=== PATIENT | male | born 1945 | race Caucasian/White ===

== ENCOUNTER → 2018-11-16 | Outpatient (CLI) | payer MEDICARE ==
[2018-11-16 09:37] LABS: Basophils # (A) 0.1 k/uL (0-0.2); Basophils % (A) 1 %; Eosinophils # (A) 0.1 k/uL (0-0.7); Eosinophils % (A) 1 %; HCT 42.6 % (39.0-53.0); HGB 13.8 gm/dL (13.0-17.5); Lymphocytes % (A) 13 %; MCHC 32.4 g/dL (31.0-37.0); MCV 95.6 fL (80.0-100.0); Monocytes # (A) 0.5 k/uL (0-1.0); Monocytes % (A) 7 %; Neutrophils # (A) 5.9 k/uL (1.3-7.7); Neutrophils % (A) 77 %; Platelet Count 167 k/uL (150-450); RBC 4.46 m/uL (4.30-5.90); RDW 14.7 % (11.5-15.5); WBC 7.7 k/uL (3.8-10.6)
[2018-11-16 09:53] LABS: Calcium 8.7 mg/dL (8.4-10.2)
== END | disposition home or self-care (01) ==
LOC: LABPAT 08:25
PROVIDERS: ATTEND Urology
DX: Z01.810 Encounter for preprocedural cardiovascular examination (principal); Z01.812 Encounter for preprocedural laboratory examination; D49.4 Neoplasm of unspecified behavior of bladder; I10 Essential (primary) hypertension; R53.83 Other fatigue
CPT/HCPCS: 36415; 80048; 85025; 93005

== ENCOUNTER 2018-11-22 11:29 | Day surgery (SDC) | payer MEDICARE ==
[2018-11-10 12:04] VITALS: BMI 47.7
--- NOTE | 2018-11-22 07:20 | P.GSHP ---
History of Present Illness H&P Date: 11/09/18 Chief Complaint: Gross hematuria The patient is a 72-year-old male who recently presented with gross hematuria. A computed tomography scan showed a 1 cm left renal lesion, as well as perivesical fat stranding. Urine cytology was positive. Cystoscopy showed several anterior bladder wall tumors. He now comes for resection. Past Medical History Past Medical History: Atrial Fibrillation, Heart Failure, Dementia, Hypertension, Myocardial Infarction (MD), Osteoarthritis (OA), Sleep Apnea/CPAP/BIPAP Last Myocardial Infarction Date:: unsure History of Any Multi-Drug Resistant Organisms: MRSA Date of last positivie culture/infection: 2009 MDRO Source:: left knee Past Surgical History: Cholecystectomy, Hernia Repair Additional Past Surgical History / Comment(s): valve replacement, Bilat cataract surgery, left knee replacement. Past Anesthesia/Blood Transfusion Reactions: No Reported Reaction Past Psychological History: No Psychological Hx Reported Smoking Status: Former smoker Past Alcohol Use History: None Reported Past Drug Use History: None Reported - Past Family History Mother Family Medical History: Cancer Additional Family Medical History / Comment(s): breast cancer Sister(s) Family Medical History: Cancer, Myocardial Infarction (MD) Father Family Medical History: Myocardial Infarction (MD) Medications and Allergies Home Medications Medication Instructions Recorded Confirmed Type Cholecalciferol [Vitamin D3 (25 4,000 unit PO DAILY 04/19/17 11/10/18 History Mcg = 1000 Iu)] Clotrimazole/Betamethasone Dip 1 applic TOPICAL Q48H 04/19/17 11/10/18 History [Lotrisone Cream] Donepezil [Aricept] 10 mg PO DAILY 04/19/17 11/10/18 History Ferrous Sulfate [Iron (65 MG 325 mg PO DAILY 04/19/17 11/10/18 History Elemental)] Magnesium Oxide [Mag-Ox] 500 mg PO DAILY 04/19/17 11/10/18 History Memantine HCl [Namenda Xr] 28 mg PO DAILY 04/19/17 11/10/18 History Spironolactone [Aldactone] 25 mg PO BID 04/19/17 11/10/18 History Warfarin [Coumadin] 5 mg PO LACY 04/19/17 11/10/18 History Warfarin [Coumadin] 10 mg PO MOTUWETHFRSA 04/19/17 11/10/18 History Enalapril [Vasotec] 2.5 mg PO BID #60 tablet 04/20/17 11/10/18 Rx Metoprolol Succinate (ER) [Toprol 50 mg PO DAILY #30 tab.er.24h 04/20/17 11/10/18 Rx XL] Albuterol Sulfate [Proventil Hfa] 1 - 2 puff INHALATION Q6HR PRN 11/10/18 11/10/18 History Atorvastatin Calcium [Lipitor] 10 mg PO DAILY 11/10/18 11/10/18 History Budesonide/Formoterol Fumarate 2 puff INHALATION BID 11/10/18 11/10/18 History [Symbicort 160-4.5 Mcg Inhaler] Furosemide [Lasix] 40 mg PO BID 11/10/18 11/10/18 History Allergies Allergy/AdvReac Type Severity Reaction Status Date / Time amoxicillin Allergy Rash/Hives Verified 11/10/18 11:49 Penicillins Allergy Rash/Hives Verified 04/19/17 08:22 Surgical - Exam - General well developed, well nourished, no distress - Neck no masses, trachea midline - Respiratory normal respiratory effort - Abdomen Abdomen: soft, non tender, no guarding, no rigid, no rebound - Genitourinary normal penis with no external lesions, testicles non-tender - Rectum Rectum: normal sphincter tone, no masses, other (prostate mildly enlarged and smooth) Results - Imaging CT scan - abdomen: report reviewed, image reviewed Assessment and Plan (1) Neoplasm of unspecified behavior of bladder Status: Acute Code(s): D49.4 - NEOPLASM OF UNSPECIFIED BEHAVIOR OF BLADDER SNOMED Code(s): 160749836 Plan: Cystoscopy, transurethral resection of bladder tumors. The procedure has been reviewed in detail with the patient and his . The rationale for the procedure was discussed, as were the potential risks. These include anesthesia, bleeding, infection, bladder perforation, and incomplete resection.
[~2018-11-22 11:29] MED LIST: DEXAMETHASONE SOD PHOSPHATE 10 MG/ML 1 ML VIAL IV ONE; LACTATED RINGERS 1,000 ML IV SCH; LEVOFLOXACIN 500MG-D5W PMX 500 MG in DEXTROSE/WATER 1 100ML.BAG IVPB ONE; LIDOCAINE 1% 20 ML VIAL (10MG/ML) FOR IV START INTRADERMA PRN; MIDAZOLAM 2 MG/2 ML VIAL IV PRN; ONDANSETRON 4 MG/2 ML VIAL IVP ONE
[2018-11-22] MEDS ORDERED: ONDANSETRON 4 MG/2 ML VIAL IVP ONE (12:27)
[2018-11-22] MEDS ORDERED: DEXAMETHASONE SOD PHOSPHATE 10 MG/ML 1 ML VIAL IV ONE (12:28)
[2018-11-22 12:44] LABS: INR 1.1 (<1.2); Prothrombin Time 11.2 sec (9.0-12.0)
[2018-11-22] MEDS ORDERED: fentaNYL (PF) 50 MCG/ML 2 ML AMP ONE (13:11)
[2018-11-22] MEDS ORDERED: PROPOFOL 10 MG/ML 20 ML VIAL IV ONE ×2 (13:11)
[2018-11-22] MEDS ORDERED: ROCURONIUM BROMIDE 10 MG/ML 10 ML VIAL IV ONE (13:11)
[2018-11-22] MEDS ORDERED: NEOSTIGMINE 1 MG/ML 10 ML VIAL ONE (13:11)
[2018-11-22] MEDS ORDERED: LIDOCAINE 1% INJ 10MG/ML (20 ML MDV) ONE (13:11)
[2018-11-22] MEDS ORDERED: MIDAZOLAM 2 MG/2 ML VIAL ONE (13:11)
[2018-11-22] MEDS ORDERED: SUCCINYLCHOLINE CHLORIDE VIAL 200 MG/10 ML VIAL IV ONE (13:11)
--- NOTE | 2018-11-22 15:19 | P.OP ---
Date of Procedure: 11/22/18 Preoperative Diagnosis: Bladder tumors Postoperative Diagnosis: Same Procedure(s) Performed: Cystoscopy, transurethral resection of bladder tumors (Medium) Anesthesia: SUZANA Surgeon: Mitch Limon Estimated Blood Loss (ml): 20 IV fluids (ml): 800 Pathology: other (Bladder tumor fragments) Condition: stable Disposition: PACU Indications for Procedure: The patient is a 73-year-old male who recently presented with gross hematuria. A computed tomography scan showed a 1 cm left renal lesion, as well as perivesical fat stranding. Urine cytology was positive. Cystoscopy showed several anterior bladder wall tumors. He now comes for resection. Operative Findings: Multiple bladder tumors. The largest arises from the vesical neck and prostatic urethra. Description of Procedure: The patient was taken in the operating room and placed in the dorsal lithotomy position, with his legs supported in Reji stirrups. The external genitalia was prepped and draped sterilely. The 25-[place] ACMI resectoscope sheath was introduced into the bladder. The bladder was inspected. Both ureteral orifices were of normal anatomic location and configuration, and clear urine effluxed from both. The entire bladder was examined, revealing tumors on the right lateral bladder wall and anterior bladder wall, just cephalad to the vesical neck. The largest tumor measured several centimeters in size and arose from the prostatic urethra and vesical neck. The tumors have a papillary appearance. Using the bipolar cutting loop, the largest tumor tumor was resected. The base of this tumor was then resected and sent as a separate specimen. The mucosa appeared irregular between the right hemitrigone and the vesical neck, and this tissue was resected. A small tumor was identified on the right lateral bladder wall, and was resected. Lastly, the anterior bladder wall tumor was resected. This was quite difficult, due to the patient's body habitus, but it appeared that the resection was a complete resection. Excellent hemostasis was attained. There was no evidence of bladder perforation. The resected tissue was saved and sent for pathologic examination. An 18-Occ[place] Clinton catheter was inserted. The return was clear. The patient tolerated the procedure well. He was taken to the recovery room in stable condition.
[2018-11-22 15:24] VITALS: TEMP 96.9
[2018-11-22 16:59] VITALS: BP 115/75; PULSE 64; RESP 20
== END 2018-11-22 17:46 | disposition home or self-care (01) ==
LOC: OR 11:29
PROVIDERS: ATTEND Urology
DX: C67.2 Malignant neoplasm of lateral wall of bladder (principal); C67.3 Malignant neoplasm of anterior wall of bladder; C67.0 Malignant neoplasm of trigone of bladder; C67.5 Malignant neoplasm of bladder neck; I25.10 Atherosclerotic heart disease of native coronary artery without angina pectoris; I11.0 Hypertensive heart disease with heart failure; I50.9 Heart failure, unspecified; I48.91 Unspecified atrial fibrillation; F03.90 Unspecified dementia, unspecified severity, without behavioral disturbance, psychotic disturbance, mood disturbance, and anxiety; I25.2 Old myocardial infarction; M19.90 Unspecified osteoarthritis, unspecified site; G47.33 Obstructive sleep apnea (adult) (pediatric); Z99.89 Dependence on other enabling machines and devices; E66.01 Morbid (severe) obesity due to excess calories; Z68.42 Body mass index [BMI] 45.0-49.9, adult; Z87.891 Personal history of nicotine dependence; Z88.0 Allergy status to penicillin; Z79.01 Long term (current) use of anticoagulants; Z79.51 Long term (current) use of inhaled steroids; Z79.899 Other long term (current) drug therapy; Z77.29 Contact with and (suspected) exposure to other hazardous substances; Z86.14 Personal history of Methicillin resistant Staphylococcus aureus infection; Z90.49 Acquired absence of other specified parts of digestive tract; Z96.652 Presence of left artificial knee joint; Z95.2 Presence of prosthetic heart valve; Z97.2 Presence of dental prosthetic device (complete) (partial); Z80.3 Family history of malignant neoplasm of breast; Z82.49 Family history of ischemic heart disease and other diseases of the circulatory system
CPT/HCPCS: 52235; 85610; 88307; J2250; J0330; J1100; J2710; J2405; J1956; J2001; J3010; J2704

== ENCOUNTER → 2018-12-23 | Outpatient (CLI) | payer MEDICARE ==
[2018-12-23 10:19] LABS: Basophils % (A) 1 %; Eosinophils # (A) 0.1 k/uL (0-0.7); Eosinophils % (A) 1 %; HCT 44.2 % (39.0-53.0); Lymphocytes # (A) 1.2 k/uL (1.0-4.8); Lymphocytes % (A) 15 %; MCH 31.4 pg (25.0-35.0); MCHC 31.7 g/dL (31.0-37.0); Macrocytosis Slight; Mean Platelet Volume 7.3; Monocytes # (A) 0.6 k/uL (0-1.0); Monocytes % (A) 7 %; Neutrophils # (A) 6.1 k/uL (1.3-7.7); Neutrophils % (A) 75 %; Platelet Count 190 k/uL (150-450); RBC 4.46 m/uL (4.30-5.90); WBC 8.1 k/uL (3.8-10.6)
[2018-12-23 10:27] LABS: Calcium 8.9 mg/dL (8.4-10.2); Potassium 4.7 mmol/L (3.5-5.1)
== END ==
LOC: LABPAT 09:10
PROVIDERS: ATTEND Urology
DX: Z01.812 Encounter for preprocedural laboratory examination (principal); C67.9 Malignant neoplasm of bladder, unspecified; R31.21 Asymptomatic microscopic hematuria; Z79.01 Long term (current) use of anticoagulants
CPT/HCPCS: 36415; 80048; 85025; 87086

== ENCOUNTER 2018-12-30 08:51 | Day surgery (SDC) | payer MEDICARE ==
--- NOTE | 2018-12-15 09:50 | P.GSHP ---
History of Present Illness H&P Date: 12/15/18 Chief Complaint: Bladder cancer The patient is a 73-year-old male who recently presented with gross hematuria. A computed tomography scan showed a 1 cm left renal lesion, as well as perivesical fat stranding. Urine cytology was positive. Cystoscopy showed several anterior bladder wall tumors, and the largest tumor arose from the vesical neck and prostatic urethra. 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 He now comes for repeat resection. He was recently treated for a MRSA UTI. - Constitutional Constitutional: Denies fever - Genitourinary (Male) Genitourinary: Reports hematuria, Reports urinary frequency, Denies dysuria Past Medical History Past Medical History: Atrial Fibrillation, Heart Failure, COPD, Dementia, Hypertension, Myocardial Infarction ([place]), Osteoarthritis (OA), Sleep Apnea/CPAP/BIPAP Additional Past Medical History / Comment(s): uses cpap, abdominal hernia, lupe leg venous stasis. exposure agent orange Last Myocardial Infarction Date:: unsure History of Any Multi-Drug Resistant Organisms: MRSA Date of last positivie culture/infection: 12/10/18 MDRO Source:: Urine Past Surgical History: Cholecystectomy, Hernia Repair, Joint Replacement, Pacemaker Additional Past Surgical History / Comment(s): heart valve replacement, Bilat cataract surgery, left knee replacement. hernia surgery Past Anesthesia/Blood Transfusion Reactions: No Reported Reaction Type of Cardiac Device: Permanent Pacemaker Device Placement Date:: 2016 Past Psychological History: Anxiety - Past Family History Mother Family Medical History: Cancer Additional Family Medical History / Comment(s): breast cancer Sister(s) Family Medical History: Cancer, Myocardial Infarction (VT) Father Family Medical History: Myocardial Infarction (VT) Medications and Allergies Home Medications Medication Instructions Recorded Confirmed Type Cholecalciferol [Vitamin D3 (25 4,000 unit PO DAILY 04/19/17 11/22/18 History Mcg = 1000 Iu)] Clotrimazole/Betamethasone Dip 1 applic TOPICAL Q48H 04/19/17 11/22/18 History [Lotrisone Cream] Donepezil [Aricept] 10 mg PO DAILY 04/19/17 11/22/18 History Ferrous Sulfate [Iron (65 MG 325 mg PO DAILY 04/19/17 11/22/18 History Elemental)] Magnesium Oxide [Mag-Ox] 500 mg PO DAILY 04/19/17 11/22/18 History Memantine HCl [Namenda Xr] 28 mg PO DAILY 04/19/17 11/22/18 History Spironolactone [Aldactone] 25 mg PO BID 04/19/17 11/22/18 History Warfarin [Coumadin] 5 mg PO LACY 04/19/17 11/22/18 History Warfarin [Coumadin] 10 mg PO MOTUWETHFRSA 04/19/17 11/22/18 History Enalapril [Vasotec] 2.5 mg PO BID #60 tablet 04/20/17 11/22/18 Rx Metoprolol Succinate (ER) [Toprol 50 mg PO DAILY #30 tab.er.24h 04/20/17 11/22/18 Rx XL] Albuterol Sulfate [Proventil Hfa] 1 - 2 puff INHALATION Q6HR PRN 11/10/18 11/22/18 History Atorvastatin Calcium [Lipitor] 10 mg PO DAILY 11/10/18 11/22/18 History Budesonide/Formoterol Fumarate 2 puff INHALATION BID 11/10/18 11/22/18 History [Symbicort 160-4.5 Mcg Inhaler] Furosemide [Lasix] 40 mg PO BID 11/10/18 11/22/18 History Allergies Allergy/AdvReac Type Severity Reaction Status Date / Time amoxicillin Allergy Rash/Hives Verified 11/22/18 11:48 Penicillins Allergy Rash/Hives Verified 11/22/18 11:48 Surgical - Exam - General well developed, well nourished, no distress - Respiratory normal respiratory effort - Abdomen Abdomen: soft, non tender, no guarding, no rigid, no rebound - Genitourinary normal penis with no external lesions, testicles non-tender - Rectum Rectum: normal sphincter tone, no masses, other (Prostate mildly enlarged and smooth) - Psychiatric oriented to time, oriented to person, oriented to place, speech is normal, memory intact Assessment and Plan (1) Malignant neoplasm of bladder Status: Acute Code(s): C67.9 - MALIGNANT NEOPLASM OF BLADDER, UNSPECIFIED SNOMED Code(s): 538192230 Plan: Cystoscopy, re-resection of bladder tumors. The procedure has been reviewed in detail with the patient and his , including the rationale for the procedure and potential risks. These include anesthesia, bleeding, infection, bladder perforation, and incomplete resection.
[2018-12-17 15:15] VITALS: BMI 47.5
[~2018-12-30 08:51] MED LIST changes: +HYDROmorphone 0.5 MG/0.5 ML SYRINGE IVP PRN; -LEVOFLOXACIN 500MG-D5W PMX 500 MG in DEXTROSE/WATER 1 100ML.BAG IVPB ONE; -LIDOCAINE 1% 20 ML VIAL (10MG/ML) FOR IV START INTRADERMA PRN; -MIDAZOLAM 2 MG/2 ML VIAL IV PRN; +ceFAZolin 3 GM in SODIUM CHLORIDE 0.9% 100 ML IVPB ONE
[2018-12-30] MEDS ORDERED: LIDOCAINE 1% 20 ML VIAL (10MG/ML) FOR IV START INTRADERMA ONE (09:38)
[2018-12-30 09:45] LABS: Glucose,Whole Blood 99 mg/dL (75-99)
[2018-12-30 09:49] LABS: INR 1.2 (<1.2); Prothrombin Time 12.6 sec (9.0-12.0)
[2018-12-30] MEDS ORDERED: ePHEDrine SULFATE/0.9% NACL/PF 50 MG/5 ML SYRINGE IV ONE (10:38)
[2018-12-30] MEDS ORDERED: MIDAZOLAM 2 MG/2 ML VIAL ONE (10:38)
[2018-12-30] MEDS ORDERED: LACTATED RINGERS 1,000 ML IV ONE (11:07)
[2018-12-30 12:07] VITALS: PULSE 60; TEMP 97.4
[2018-12-30 14:19] VITALS: BP 121/65; RESP 18
--- NOTE | 2018-12-30 18:42 | P.OP ---
Date of Procedure: 12/30/18 Preoperative Diagnosis: Urothelial carcinoma of the bladder with CIS Postoperative Diagnosis: Same Procedure(s) Performed: Cystoscopy, TURBT (Medium) Anesthesia: spinal Surgeon: Mitch Limon Estimated Blood Loss (ml): 30 IV fluids (ml): 600 Condition: stable Disposition: PACU Indications for Procedure: The patient is a 73-year-old male who recently presented with gross hematuria. A computed tomography scan showed a 1 cm left renal lesion, as well as perivesical fat stranding. Urine cytology was positive. Cystoscopy showed several anterior bladder wall tumors, and the largest tumor arose from the vesical neck and prostatic urethra. 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 He now comes for repeat resection. He was recently treated for a MRSA UTI. Operative Findings: Inflammation at previous areas of resection. Description of Procedure: The patient was taken in the operating room and placed in the dorsal lithotomy position, with his legs supported in Reji stirrups. The external genitalia was prepped and draped sterilely. The 25-[place] ACMI resectoscope sheath was introduced into the bladder. The bladder was inspected. Inflammation was noted at areas of prior resection. The trigone was edematous, and thus the ureteral orifices could not be identified. No tumors were seen. Using the bipolar cutting loop, the areas of prior resection on the anterior bladder wall, bladder trigone, and prostatic urethra were resected down to the muscle. Adequate hemostasis was attained. There was no evidence of bladder perforation. The resected tissue was saved and sent for pathologic examination. A 20-[place] Clinton catheter was inserted. The return was clear. The patient tolerated the procedure well. He was taken to the recovery room in stable condition.
== END 2018-12-30 15:04 | disposition home or self-care (01) ==
LOC: OR 08:51
PROVIDERS: ATTEND Urology
DX: C67.3 Malignant neoplasm of anterior wall of bladder (principal); D09.0 Carcinoma in situ of bladder; I48.91 Unspecified atrial fibrillation; I11.0 Hypertensive heart disease with heart failure; I50.9 Heart failure, unspecified; J44.9 Chronic obstructive pulmonary disease, unspecified; F03.90 Unspecified dementia, unspecified severity, without behavioral disturbance, psychotic disturbance, mood disturbance, and anxiety; I25.2 Old myocardial infarction; M19.90 Unspecified osteoarthritis, unspecified site; G47.30 Sleep apnea, unspecified; Z99.89 Dependence on other enabling machines and devices; I87.8 Other specified disorders of veins; Z86.14 Personal history of Methicillin resistant Staphylococcus aureus infection; Z77.098 Contact with and (suspected) exposure to other hazardous, chiefly nonmedicinal, chemicals; Z90.49 Acquired absence of other specified parts of digestive tract; Z96.652 Presence of left artificial knee joint; Z98.42 Cataract extraction status, left eye; Z98.41 Cataract extraction status, right eye; Z95.0 Presence of cardiac pacemaker; F41.9 Anxiety disorder, unspecified; Z95.2 Presence of prosthetic heart valve; Z80.3 Family history of malignant neoplasm of breast; Z82.49 Family history of ischemic heart disease and other diseases of the circulatory system; Z79.01 Long term (current) use of anticoagulants; Z79.51 Long term (current) use of inhaled steroids; Z79.899 Other long term (current) drug therapy; Z88.0 Allergy status to penicillin
CPT/HCPCS: 85610; 88342; 88307; 88341; 52235; J2250; J1100; J0690; J2405

== ENCOUNTER 2020-02-29 07:41 | Emergency (ER) | payer MEDICARE ==
[2020-02-29] MEDS ORDERED: HYDROcodone/APAP 7.5-325MG 1 EACH TAB PO ONE (07:49)
[2020-02-29 07:53] VITALS: TEMP 97.9
--- NOTE | 2020-02-29 07:55 | ED ---
Fall HPI - General Stated Complaint: FALL/LEFT HIP PAIN Time Seen by Provider: 02/29/20 07:44 - History of Present Illness Initial Comments: 74yo male with extensive PMH on Coumadin for atrial fibrillation presenting for fall. States he has had chronic hip pain that has been increasing for the past week. Patient states it is worse in the AM and when attempting to go from seated to standing. patient states that he went to get out of bed to go to the res troom, and he fell onto his "bottom" patient states he did not hit his head or jerk it. Patient denies any back pain,neck pain denies leg weakness, sensation deficits. Denies chest pain, SOB or syncope. Ptient states he doesnot have any headaches, visual changes, nausea, vomiting. Patient appears well nontoxic in no acute distress. - Related Data Home Medications Medication Instructions Recorded Confirmed Cholecalciferol [Vitamin D3 (25 2,000 unit PO DAILY 04/19/17 12/30/18 Mcg = 1000 Iu)] Clotrimazole/Betamethasone Dip 1 applic TOPICAL Q48H 04/19/17 12/30/18 [Lotrisone Cream] Donepezil [Aricept] 10 mg PO DAILY 04/19/17 12/30/18 Ferrous Sulfate [Iron (65 MG 325 mg PO DAILY 04/19/17 12/30/18 Elemental)] Magnesium Oxide [Mag-Ox] 500 mg PO DAILY 04/19/17 12/30/18 Memantine HCl [Namenda Xr] 28 mg PO DAILY 04/19/17 12/30/18 Spironolactone [Aldactone] 25 mg PO BID 04/19/17 12/30/18 Warfarin [Coumadin] 5 mg PO LACY 04/19/17 12/30/18 Warfarin [Coumadin] 10 mg PO MOTUWETHFRSA 04/19/17 12/30/18 Albuterol Sulfate [Proventil Hfa] 1 - 2 puff INHALATION Q6HR PRN 11/10/18 12/30/18 Atorvastatin Calcium [Lipitor] 10 mg PO DAILY 11/10/18 12/30/18 Budesonide/Formoterol Fumarate 2 puff INHALATION BID 11/10/18 12/30/18 [Symbicort 160-4.5 Mcg Inhaler] Furosemide [Lasix] 40 mg PO BID 11/10/18 12/30/18 Nitrofurantoin Monohyd/M-Cryst 100 mg PO Q12HR 12/17/18 12/30/18 [Macrobid] Previous Rx's Medication Instructions Recorded Enalapril [Vasotec] 2.5 mg PO BID #60 tablet 04/20/17 Metoprolol Succinate (ER) [Toprol 50 mg PO DAILY #30 tab.er.24h 04/20/17 XL] Allergies Allergy/AdvReac Type Severity Reaction Status Date / Time amoxicillin Allergy Rash/Hives Verified 02/29/20 07:53 Penicillins Allergy Rash/Hives Verified 02/29/20 07:53 Review of Systems ROS Statement: Those systems with pertinent positive or pertinent negative responses have been documented in the HPI. ROS Other: All systems not noted in ROS Statement are negative. Past Medical History Past Medical History: Atrial Fibrillation, Heart Failure, COPD, Dementia, Hypertension, Myocardial Infarction (ND), Osteoarthritis (OA), Sleep Apnea/CPAP/BIPAP Additional Past Medical History / Comment(s): uses cpap, abdominal hernia, lupe leg venous stasis. exposure agent orange Last Myocardial Infarction Date:: unsure History of Any Multi-Drug Resistant Organisms: MRSA Date of last positivie culture/infection: 12/10/18 MDRO Source:: Urine Past Surgical History: Cholecystectomy, Hernia Repair, Joint Replacement, Pacemaker Additional Past Surgical History / Comment(s): heart valve replacement, Bilat cataract surgery, left knee replacement. hernia surgery Past Anesthesia/Blood Transfusion Reactions: No Reported Reaction Type of Cardiac Device: Permanent Pacemaker Device Placement Date:: 2016 Past Psychological History: Anxiety Additional Psychological History / Comment(s): dementia Past Alcohol Use History: None Reported Additional Past Alcohol Use History / Comment(s): starting smoking age 21, 2ppd quit 2009 Past Drug Use History: None Reported - Past Family History Mother Family Medical History: Cancer Additional Family Medical History / Comment(s): breast cancer Sister(s) Family Medical History: Cancer, Myocardial Infarction (ND) Father Family Medical History: Myocardial Infarction (ND) General Exam - General Exam Comments Initial Comments: General: The patient is awake and alert, in no distress. Eye: +3 mm pupils are equal, round and reactive to light, extra-ocular movements are intact. No nystagmus. There is normal conjunctiva bilaterally. No signs of icterus. Ears, nose, mouth and throat: There are moist mucous membranes and no oral lesions. Neck: The neck is supple, there is no tenderness or JVD. Cardiovascular: There is a regular rate and rhythm. No murmur, rub or gallop is appreciated. Respiratory: Lungs are clear to auscultation, respirations are non-labored, breath sounds are equal. No wheezes, stridor, rales, or rhonchi. Gastrointestinal: Soft, non-distended, non-tender abdomen without masses or organomegaly noted. There is no rebound or guarding present. Musculoskeletal: No back pain. Normal ROM, no tenderness. Strength 5/5 of the LE b/l. Sensation intact of the LE b/l. Radial pulses equal bilaterally 2+. Neurological: A&O x 3. CN II-XII intact grossly, There are no obvious motor or sensory deficits. Coordination appears grossly intact. Speech is normal. Skin: Skin is warm and dry and no rashes or lesions are noted. Psychiatric: Cooperative, appropriate mood & affect, normal judgment. Course Vital Signs 02/29/20 02/29/20 07:46 09:16 Temperature 97.9 F Pulse Rate 70 69 Respiratory 16 18 Rate Blood Pressure 129/95 141/81 O2 Sat by Pulse 98 96 Oximetry Medical Decision Making - Medical Decision Making 74yo male presenting for cc of fall. Left hip pain. Not increased since fall. Patient denies back pain. No weakness on exam, sensation intact. No fevers. Patient able to weight bear and ambulate. Patient has extensive degenerative changes on XR cannot r/o osteonecrosis. Patient wanted INR checked, within therapeutic levels. Patient family and patient agreeable to discharge with orthopedic f/u. Dr Braun is agreeable to discharge at this time. - Lab Data Lab Results 02/29/20 Range/Units 08:26 PT 27.5 H (9.0-12.0) sec INR 2.8 H (<1.2) Disposition Clinical Impression: Fall, Left hip pain, Arthritis Disposition: HOME SELF-CARE Condition: Good Instructions (If sedation given, give patient instructions): Hip Pain (ED) Additional Instructions: Please use medication as discussed. Please follow-up with family doctor in the next 2 days. Please return to emergency room if the symptoms increase or worsen or for any other concerns. Is patient prescribed a controlled substance at d/c from ED?: No Referrals: Gina Velasco MD [Primary Care Provider] - 1-2 days Rock Garcia DO [Doctor of Osteopathic Medicine] - 1-2 days Time of Disposition: 08:38
--- NOTE | 2020-02-29 08:43 | XR ---
EXAMINATION TYPE: XR Hip RT and AP Pelvis DATE OF EXAM: 02/29/2020 COMPARISON: NONE HISTORY: Left hip pain. Recent fall. TECHNIQUE: A single AP view of the pelvis is obtained. Two views of the left hip are obtained. FINDINGS: There is no acute displaced fracture/dislocation evident in the pelvis or left hip. The s acroiliac joints appear symmetric and unremarkable. Pubic symphysis unremarkable. Degenerative change s of the lumbosacral spine. Degenerative changes of the bilateral hips, left greater than right. Ther e is cortical irregularity of the medial aspect of the left femoral head. Calcified atherosclerotic v ascular disease. IMPRESSION: 1. Cortical irregularity of the medial left femoral head likely represents overlapping fovea and dege nerative change of the acetabulum, however osteonecrosis/subchondral insufficiency changes not exclud ed. Recommend CT exam of the left hip for further evaluation. 2. No acute fracture or dislocation of the pelvis.
[2020-02-29 08:50] LABS: INR 2.8 (<1.2); Prothrombin Time 27.5 sec (9.0-12.0)
[2020-02-29 09:18] VITALS: BP 141/81; PULSE 69; RESP 18
== END 2020-02-29 09:11 | disposition home or self-care (01) ==
LOC: EC 07:41
DX: M16.12 Unilateral primary osteoarthritis, left hip (principal); I48.91 Unspecified atrial fibrillation; I11.0 Hypertensive heart disease with heart failure; I50.9 Heart failure, unspecified; J44.9 Chronic obstructive pulmonary disease, unspecified; I25.2 Old myocardial infarction; F41.9 Anxiety disorder, unspecified; F03.90 Unspecified dementia, unspecified severity, without behavioral disturbance, psychotic disturbance, mood disturbance, and anxiety; G47.30 Sleep apnea, unspecified; Z79.899 Other long term (current) drug therapy; Z79.01 Long term (current) use of anticoagulants; Z79.51 Long term (current) use of inhaled steroids; Z88.0 Allergy status to penicillin; Z95.0 Presence of cardiac pacemaker; Z95.2 Presence of prosthetic heart valve; Z96.652 Presence of left artificial knee joint; Z87.891 Personal history of nicotine dependence
CPT/HCPCS: 36415; 73502; 85610; 99284

== ENCOUNTER 2020-03-03 12:13 | Inpatient (IN) | payer MEDICARE ==
[2020-03-03] MEDS ORDERED: DIPH,PERTUS(ACELL)TETVAC-LF 0.5 ML VIAL IM ONE (12:35)
--- NOTE | 2020-03-03 12:37 | ED ---
General Adult HPI - General Chief complaint: Fall Stated complaint: Fall Time Seen by Provider: 03/03/20 12:24 Source: EMS Mode of arrival: EMS Limitations: no limitations - History of Present Illness Initial comments: Dictation was produced using [employer] dictation software. please excuse any grammatical, word or spelling errors. This patient was cared for during a federal and state declared state of emergency secondary to Covid 19 Chief Complaint: 74-year-old male presents after fall History of Present Illness: Is 74-year-old male has multiple Covid's including atrial fibrillation, heart rate, COPD, dementia presents after falling. Patient has a history of forgetfulness. He is allegedly fell while in the shower. Today complains of left hip pain. Denies any headache. No neck pain. Patient reports slipping and falling in the bathroom. A loud thud was heard by patient's . She noticed them on the ground. Patient refusing any pain medications. Takes Coumadin for A. fib. The ROS documented in this emergency department record has been reviewed and confirmed by me. Those systems with pertinent positive or negative responses have been documented in the HPI. All other systems are other negative and/or noncontributory. PHYSICAL EXAM: General Impression: Alert and oriented x3, not in acute distress HEENT: Normocephalic atraumatic, extra-ocular movements intact, pupils equal and reactive to light bilaterally, mucous membranes moist. Cardiovascular: Heart regular rate and rhythm Chest: Able to complete full sentences, no retractions, no tachypnea Abdomen: abdomen soft, non-tender, non-distended, no organomegaly Musculoskeletal: Pulses present and equal in all extremities, no peripheral edema, hip pain with ranging of the left hip. No other obvious injuries noted to the extremities. There are skin tears to the bilateral elbows Motor: no focal deficits noted Neurological: CN II-XII grossly intact, no focal motor or sensory deficits noted Skin: Intact with no visualized rashes Psych: Normal affect and mood ED course: 74-year-old male with slip and fall in the bathroom today. Ends upon arrival are within acceptable limits. Laboratory evaluation obtained. Hemoglobin stable. No leukocytosis. Coag panel shows INR 4.0. This is mildly supratherapeutic. Patient showing any signs of bleeding. Metabolic panel shows test 5.2 with slight hemolysis. This likely normal with lab error. BUN 40, creatinine 1.16. Rest of labs are unremarkable. Computed tomography scan the brain is unremarkable. Chest x-ray is nonacute. Hip and pelvis x-ray shows no acute processes. Patient reevaluated at bedside. On his x-ray of the head there does show severe left hip arthropathy. Patient resting comfortably however whenever you manipulate his left hip he starts to experience significant pain. at bedside is the patient's customer operations manager however she is a small frail old lady and unable to care for this male who is BMI of 49. Patient be admitted to Dr. Velasco. We'll put orthopedic surgery consult and physical therapy consult. EKG interpretation: Ventricular rate 74, paced rhythm, QRS 148, QTc 463. No NM prolongation, no QTC prolongation, no ST or T-wave changes noted. EKG compared to 11/16/2018 showing no changes. Overall, this EKG is unremarkable - Related Data Home Medications Medication Instructions Recorded Confirmed Cholecalciferol [Vitamin D3 (25 2,000 unit PO DAILY 04/19/17 12/30/18 Mcg = 1000 Iu)] Clotrimazole/Betamethasone Dip 1 applic TOPICAL Q48H 04/19/17 12/30/18 [Lotrisone Cream] Donepezil [Aricept] 10 mg PO DAILY 04/19/17 12/30/18 Ferrous Sulfate [Iron (65 MG 325 mg PO DAILY 04/19/17 12/30/18 Elemental)] Magnesium Oxide [Mag-Ox] 500 mg PO DAILY 04/19/17 12/30/18 Memantine HCl [Namenda Xr] 28 mg PO DAILY 04/19/17 12/30/18 Spironolactone [Aldactone] 25 mg PO BID 04/19/17 12/30/18 Warfarin [Coumadin] 5 mg PO LACY 04/19/17 12/30/18 Warfarin [Coumadin] 10 mg PO MOTUWETHFRSA 04/19/17 12/30/18 Albuterol Sulfate [Proventil Hfa] 1 - 2 puff INHALATION Q6HR PRN 11/10/18 12/30/18 Atorvastatin Calcium [Lipitor] 10 mg PO DAILY 11/10/18 12/30/18 Budesonide/Formoterol Fumarate 2 puff INHALATION BID 11/10/18 12/30/18 [Symbicort 160-4.5 Mcg Inhaler] Furosemide [Lasix] 40 mg PO BID 11/10/18 12/30/18 Nitrofurantoin Monohyd/M-Cryst 100 mg PO Q12HR 12/17/18 12/30/18 [Macrobid] Previous Rx's Medication Instructions Recorded Enalapril [Vasotec] 2.5 mg PO BID #60 tablet 04/20/17 Metoprolol Succinate (ER) [Toprol 50 mg PO DAILY #30 tab.er.24h 04/20/17 XL] Allergies Allergy/AdvReac Type Severity Reaction Status Date / Time amoxicillin Allergy Rash/Hives Verified 03/03/20 14:08 Penicillins Allergy Rash/Hives Verified 03/03/20 14:08 Review of Systems ROS Statement: Those systems with pertinent positive or pertinent negative responses have been documented in the HPI. ROS Other: All systems not noted in ROS Statement are negative. Past Medical History Past Medical History: Atrial Fibrillation, Heart Failure, COPD, Dementia, Hypertension, Myocardial Infarction ([place]), Osteoarthritis (OA), Sleep Apnea/CPAP/BIPAP Additional Past Medical History / Comment(s): uses cpap, abdominal hernia, lupe leg venous stasis. exposure agent orange Last Myocardial Infarction Date:: unsure History of Any Multi-Drug Resistant Organisms: MRSA Date of last positivie culture/infection: 12/10/18 MDRO Source:: Urine Past Surgical History: Cholecystectomy, Hernia Repair, Joint Replacement, Pacemaker Additional Past Surgical History / Comment(s): heart valve replacement, Bilat cataract surgery, left knee replacement. hernia surgery Past Anesthesia/Blood Transfusion Reactions: No Reported Reaction Type of Cardiac Device: Permanent Pacemaker Device Placement Date:: 2016 Past Psychological History: Anxiety Smoking Status: Never smoker Past Alcohol Use History: None Reported Past Drug Use History: None Reported - Past Family History Mother Family Medical History: Cancer Additional Family Medical History / Comment(s): breast cancer Sister(s) Family Medical History: Cancer, Myocardial Infarction ([place]) Father Family Medical History: Myocardial Infarction ([place]) General Exam Limitations: no limitations Course Vital Signs 03/03/20 03/03/20 12:14 14:04 Temperature 98.2 F Pulse Rate 80 63 Respiratory 18 18 Rate Blood Pressure 127/67 132/77 O2 Sat by Pulse 98 98 Oximetry Medical Decision Making - Lab Data Result diagrams: 03/03/20 12:41 03/03/20 12:41 Lab Results 03/03/20 03/03/20 03/03/20 Range/Units 12:41 12:41 12:41 WBC 9.9 (3.8-10.6) k/uL RBC 3.95 L (4.30-5.90) m/uL Hgb 13.7 (13.0-17.5) gm/dL Hct 40.0 (39.0-53.0) % MCV 101.1 H (80.0-100.0) fL MCH 34.7 (25.0-35.0) pg MCHC 34.3 (31.0-37.0) g/dL RDW 14.1 (11.5-15.5) % Plt Count 169 (150-450) k/uL Neutrophils % 86 % Lymphocytes % 5 % Monocytes % 6 % Eosinophils % 1 % Basophils % 1 % Neutrophils # 8.5 H (1.3-7.7) k/uL Lymphocytes # 0.5 L (1.0-4.8) k/uL Monocytes # 0.6 (0-1.0) k/uL Eosinophils # 0.1 (0-0.7) k/uL Basophils # 0.1 (0-0.2) k/uL Macrocytosis Slight PT 39.8 H (9.0-12.0) sec INR 4.0 H (<1.2) APTT 39.7 H (22.0-30.0) sec Sodium 135 L (137-145) mmol/L Potassium 5.2 H (3.5-5.1) mmol/L Chloride 103 (98-107) mmol/L Carbon Dioxide 26 (22-30) mmol/L Anion Gap 6 mmol/L BUN 40 H (9-20) mg/dL Creatinine 1.16 (0.66-1.25) mg/dL Est GFR (CKD-EPI)AfAm 73 (>60 ml/min/1.73 sqM) Est GFR (CKD-EPI)NonAf 63 (>60 ml/min/1.73 sqM) Glucose 120 H (74-99) mg/dL Calcium 8.9 (8.4-10.2) mg/dL Total Bilirubin 2.2 H (0.2-1.3) mg/dL AST 48 (17-59) U/L ALT 26 (4-49) U/L Alkaline Phosphatase 98 (38-126) U/L Total Protein 6.5 (6.3-8.2) g/dL Albumin 3.7 (3.5-5.0) g/dL Disposition Clinical Impression: Hip pain, Fall Disposition: ADMITTED IP TO THIS [facility] Condition: Fair Referrals: Gina Velasco MD [Primary Care Provider] - 1-2 days Decision Time: 14:10
[2020-03-03 12:59] LABS: Basophils # (A) 0.1 k/uL (0-0.2); Basophils % (A) 1 %; Eosinophils # (A) 0.1 k/uL (0-0.7); Eosinophils % (A) 1 %; HGB 13.7 gm/dL (13.0-17.5); Lymphocytes # (A) 0.5 k/uL (1.0-4.8); Lymphocytes % (A) 5 %; MCH 34.7 pg (25.0-35.0); MCHC 34.3 g/dL (31.0-37.0); MCV 101.1 fL (80.0-100.0); Macrocytosis Slight; Mean Platelet Volume 7.2; Monocytes # (A) 0.6 k/uL (0-1.0); Monocytes % (A) 6 %; Neutrophils # (A) 8.5 k/uL (1.3-7.7); Neutrophils % (A) 86 %; Platelet Count 169 k/uL (150-450); RBC 3.95 m/uL (4.30-5.90); RDW 14.1 % (11.5-15.5); WBC 9.9 k/uL (3.8-10.6)
[2020-03-03 13:18] LABS: Albumin 3.7 g/dL (3.5-5.0); Calcium 8.9 mg/dL (8.4-10.2); Total Bilirubin 2.2 mg/dL (0.2-1.3); Total Protein 6.5 g/dL (6.3-8.2)
[2020-03-03 13:26] LABS: Potassium 5.2 mmol/L (3.5-5.1)
--- NOTE | 2020-03-03 13:34 | CT ---
EXAMINATION TYPE: CT brain jimmy wo con DATE OF EXAM: 03/03/2020 COMPARISON: 04/19/2017 HISTORY: Fall CT DLP: 1540 mGycm Automated exposure control for dose reduction was used. TECHNIQUE: CT scan of the head and cervical spine are performed without contrast. FINDINGS: Intracranial atherosclerotic changes noted. Exam limited by patient motion. Calcification the right basal ganglia. Calcification in the left frontal and parietal lobes. Moderate generalized degenerative change of low attenuation in the white matter nonspecific but most typical of remote whi te matter ischemia. Calvarium intact. Odontoid intact. Assessment spinal canal markedly limited due to artifact and resolution. There is mu ltilevel hypertrophic and degenerative changes. No compression deformities. Multilevel facet arthropa thy. Suspect multilevel foraminal encroachment. Nondiagnostic assessment spinal canal. Artifact from dental work is noted. Oropharynx and nasopharynx symmetric. Parotid glands have a normal appearance. Atherosclerotic change of the carotid arteries noted. IMPRESSION: 1. Degenerative and nonspecific white matter changes with no acute hemorrhage. 2. Multilevel degenerative disc disease and facet arthropathy. No acute fracture..
--- NOTE | 2020-03-03 13:35 | XR ---
EXAMINATION TYPE: XR chest 1V portable DATE OF EXAM: 03/03/2020 COMPARISON: 04/20/2017 HISTORY: Chest pain TECHNIQUE: Single frontal view of the chest is obtained. FINDINGS: The heart is enlarged. There is a cardiac device and atherosclerotic change aorta. Subsegm ental changes at both lung bases. No overt failure or pneumothorax. Arthropathy of the shoulders. IMPRESSION: Cardiomegaly with basilar atelectasis favored over infiltrate. Correlate for underlying COPD.
--- NOTE | 2020-03-03 13:37 | XR ---
EXAMINATION TYPE: XR Hip LT and AP Pelvis DATE OF EXAM: 03/03/2020 COMPARISON: NONE HISTORY: Left hip pain TECHNIQUE: A single AP view of the pelvis is obtained. Two views of the left hip are obtained. FINDINGS: Degenerative change lower lumbar spine. SI joints are symmetric. Technique limits the exam. There severe arthropathy of the bilateral hip. Vascular calcifications noted. Correlate for femoral acetabular impingement. No acute fracture seen. IMPRESSION: 1. Severe hip arthropathy with no definite acute fracture.
[2020-03-03 13:53] LABS: Partial Thromboplastin Time 39.7 sec (22.0-30.0); Prothrombin Time 39.8 sec (9.0-12.0)
[2020-03-03] MEDS ORDERED: NALOXONE 0.4 MG/ML 1 ML VIAL IV PRN (14:10)
[2020-03-03] MEDS ORDERED: oxyCODONE-APAP 5-325MG 1 EACH TAB PO PRN (14:10)
[2020-03-03] MEDS ORDERED: ONDANSETRON 4 MG/2 ML VIAL IVP PRN (14:10)
[2020-03-03] MEDS: ACETAMINOPHEN TAB 325 MG TAB PO PRN (14:17)
[2020-03-03] MEDS: SODIUM CHLORIDE 0.9% 1,000 ML IV SCH (16:27)
[2020-03-03] MEDS ORDERED: WARFARIN 0.5 MG TAB PO ONE (18:00)
--- NOTE | 2020-03-03 18:18 | CT ---
EXAMINATION TYPE: CT hip LT wo con DATE OF EXAM: 03/03/2020 COMPARISON: None HISTORY: LEFT HIP PAIN CT DLP: 1859.6 mGycm Automated exposure control for dose reduction was used. Images were obtained from the mid ileum to the subtrochanteric femur without contrast. The proximal femur is intact. There is no evidence of femoral fracture. There is hypertrophic acetabu lar spurring. Acetabulum is intact. Visualized left hemipelvis is intact. Sacroiliac joint is intact. There is atherosclerotic vascular calcification. IMPRESSION: Osteoarthritis. No fracture seen.
[2020-03-04 07:30] LABS: Prothrombin Time 39.1 sec (9.0-12.0)
[2020-03-04 07:54] LABS: African American GFR (CKD) >90 (>60 ml/min/1.73 sqM); Anion Gap 1 mmol/L; Blood Urea Nitrogen 33 mg/dL (9-20); Calcium 8.3 mg/dL (8.4-10.2); Carbon Dioxide 29 mmol/L (22-30); Chloride 105 mmol/L (98-107); Glucose 96 mg/dL (74-99); Non-African American GFR(CKD) 80 (>60 ml/min/1.73 sqM); Potassium 4.8 mmol/L (3.5-5.1); Sodium 135 mmol/L (137-145)
--- NOTE | 2020-03-04 08:41 | P.CNOR ---
History of Present Illness - [facility] Consult date: 03/04/20 Consult reason: joint pain (Left hip pain) History of present illness: Patient is a 74-year-old male who was brought to [facility] yesterday with regards to pain involving his left hip. Apparently the patient fell in the shower yesterday, his did find him and called EMS to bring the patient the hospital for further evaluation. Patient has a history of dementia and is very forgetful. Patient was examined today in the observation unit. Multiple imaging test have been done of the left hip, this including hip x-rays and hip computed tomography scan. Images have been negative for any acute fractures or dislocations. They do demonstrate severe osteoarthritic changes. Patient does admit to a previous left total knee arthroplasty, he cannot murmur the date or time he had that. He denies any surgery involving the right lower extremity. He denies any history of spine surgery. Patient is a very unhealthy obese male. It sounds like his is having a hard time taking care of the patient. He normally utilizes a walker and a cane. He does not leave the house very often. He has severe peripheral vascular disease in the bilateral lower extremities. He has severe skin breakdown in the inguinal folds bilaterally. He has multiple bruises of the upper and lower extremities. Currently the patient denies any severe back pain involving the cervical thoracic or lumbar region. He denies any numbness and tingling in the bilateral lower extremities or upper extremity. He denies any loss of bowel or bladder function at this time. He denies any upper extremity pain at this time bilaterally. He notes most of the discomfort in the left hip region over the lateral aspect and in the groin. He mainly notices that pain with movement. Review of Systems Constitutional: Reports as per HPI Past Medical History Past Medical History: Atrial Fibrillation, Heart Failure, COPD, Dementia, Hypertension, Myocardial Infarction ([place]), Osteoarthritis ([place]), Sleep Apnea/CPAP/BIPAP Additional Past Medical History / Comment(s): uses cpap, abdominal hernia, lupe leg venous stasis. exposure agent orange, high ammonia Last Myocardial Infarction Date:: unsure History of Any Multi-Drug Resistant Organisms: MRSA Year Discovered:: 12/10/18 MDRO Source:: Urine Past Surgical History: Cholecystectomy, Hernia Repair, Joint Replacement, Pacemaker Additional Past Surgical History / Comment(s): heart valve replacement, Bilat cataract surgery, left knee replacement. hernia surgery Past Anesthesia/Blood Transfusion Reactions: No Reported Reaction Type of Cardiac Device: Permanent Pacemaker Device Placement Date:: 2016 Past Psychological History: Anxiety Additional Psychological History / Comment(s): dementia Smoking Status: Never smoker Past Alcohol Use History: None Reported Additional Past Alcohol Use History / Comment(s): starting smoking age 21, 2ppd quit 2009 Past Drug Use History: None Reported - Past Family History Mother Family Medical History: Cancer Additional Family Medical History / Comment(s): breast cancer Sister(s) Family Medical History: Cancer, Myocardial Infarction ([place]) Father Family Medical History: Myocardial Infarction ([place]) Medications and Allergies Home Medications Medication Instructions Recorded Confirmed Type RX: Cholecalciferol [Vitamin D3 2,000 unit PO DAILY 04/19/17 03/03/20 History (25 Mcg = 1000 Iu)] RX: Clotrimazole/Betamethasone Dip 1 applic TOPICAL BID 04/19/17 03/03/20 History [Lotrisone Cream] RX: Donepezil [Aricept] 10 mg PO DAILY 04/19/17 03/03/20 History RX: Ferrous Sulfate [Iron (65 MG 325 mg PO DAILY 04/19/17 03/03/20 History Elemental)] RX: Magnesium Oxide [Mag-Ox] 500 mg PO DAILY 04/19/17 03/03/20 History RX: Memantine HCl [Namenda Xr] 28 mg PO DAILY@1200 04/19/17 03/03/20 History RX: Spironolactone [Aldactone] 25 mg PO BID 04/19/17 03/03/20 History RX: Warfarin [Coumadin] 10 mg PO MOTUWETHFRSA 04/19/17 03/03/20 History RX: Enalapril [Vasotec] 2.5 mg PO BID #60 tablet 04/20/17 03/03/20 Rx RX: Metoprolol Succinate (ER) 50 mg PO DAILY #30 tab.er.24h 04/20/17 03/03/20 Rx [Toprol XL] Albuterol Sulfate [Proventil Hfa] 1 - 2 puff INHALATION RT-Q4H PRN 11/10/18 03/03/20 History Atorvastatin Calcium [Lipitor] 10 mg PO HS 11/10/18 03/03/20 History Budesonide/Formoterol Fumarate 2 puff INHALATION RT-BID 11/10/18 03/03/20 History [Symbicort 160-4.5 Mcg Inhaler] RX: Furosemide [Lasix] 40 mg PO BID 11/10/18 03/03/20 History RX: Warfarin Sodium 5 mg PO LACY 03/03/20 03/03/20 History Allergies Allergy/AdvReac Type Severity Reaction Status Date / Time amoxicillin Allergy Rash/Hives Verified 03/03/20 14:08 Penicillins Allergy Rash/Hives Verified 03/03/20 14:08 Physical Examination General orthopedic exam: Patient is a very obese male, he has multiple bruises of the bilateral upper and lower extremities. Evidence of peripheral vascular disease with skin changes of the bilateral lower extremities. There is a small scab and wound noted on the anterior aspect of lower tibia on the right leg. Severe skin breakdown is also noted in the right inguinal fold Left lower extremity: Severe skin breakdown with erythema and drainage of the inguinal fold, there is some type of dressing applied No significant areas of swelling or erythema involving the lateral hip Minimal tenderness with palpation throughout the proximal femur Logroll maneuver reproduces no significant discomfort in the groin, there is negative straight leg raise Patient is very difficult time flexing and extending the hip and knee, this is likely secondary to pain Passively external and internal rotation of the hip do reproduce groin pain No effusion present around the knee, no tenderness with palpation surrounding the knee The calf is soft, there is no tenderness with palpation Negative Homans Sensation to light touch throughout the extremity is intact Unable to appreciate dorsalis pedis or posterior tibialis pulse, but Doppler will be ordered Results - Labs Labs: Abnormal Lab Results - Last 24 Hours (Table) 03/03/20 03/03/20 03/03/20 Range/Units 12:41 12:41 12:41 RBC 3.95 L (4.30-5.90) m/uL MCV 101.1 H (80.0-100.0) fL Neutrophils # 8.5 H (1.3-7.7) k/uL Lymphocytes # 0.5 L (1.0-4.8) k/uL PT 39.8 H (9.0-12.0) sec INR 4.0 H (<1.2) APTT 39.7 H (22.0-30.0) sec Sodium 135 L (137-145) mmol/L Potassium 5.2 H (3.5-5.1) mmol/L BUN 40 H (9-20) mg/dL Glucose 120 H (74-99) mg/dL Calcium (8.4-10.2) mg/dL Total Bilirubin 2.2 H (0.2-1.3) mg/dL 03/04/20 03/04/20 Range/Units 07:08 07:08 RBC (4.30-5.90) m/uL MCV (80.0-100.0) fL Neutrophils # (1.3-7.7) k/uL Lymphocytes # (1.0-4.8) k/uL PT 39.1 H (9.0-12.0) sec INR 4.0 H (<1.2) APTT (22.0-30.0) sec Sodium 135 L (137-145) mmol/L Potassium (3.5-5.1) mmol/L BUN 33 H (9-20) mg/dL Glucose (74-99) mg/dL Calcium 8.3 L (8.4-10.2) mg/dL Total Bilirubin (0.2-1.3) mg/dL H & H 03/03/20 Range/Units 12:41 Hgb 13.7 (13.0-17.5) gm/dL Hct 40.0 (39.0-53.0) % Coagulation 03/03/20 03/04/20 Range/Units 12:41 07:08 INR 4.0 H 4.0 H (<1.2) Result Diagrams: 03/03/20 12:41 03/04/20 07:08 - Diagnostic results Hip x-ray: report reviewed, image reviewed (No acute fractures or dislocations appreciated, severe osteo-arthritic changes) Hip CT: report reviewed, image reviewed (No acute fractures or dislocations appreciated, severe arthritic changes) Assessment and Plan Assessment: Left hip pain Severe left hip osteoarthritis Status post fall from standing Multiple medical comorbidities Plan: I was able to discuss the case, including the physical exam findings and imaging studies may attending Dr. Motley. Patient will need admission to the hospital with likely plan for technician terminal and repeater versus permanent assisted-living Recommend wound care evaluation for the wound on the right lower extremity and also inguinal folds Recommend physical therapy and and occupational therapy workup Weight-bear as tolerated, utilize walker at all times Pain control per primary medical service DVT prophylaxis per primary medical service Patient is a very poor candidate at this time for any type of surgical procedure involving the left hip, more specifically a joint replacement. Depending on how the patient does with physical therapy, may order further imaging studies of concern for occult fracture. We'll continue to follow the patient during inpatient stay Time with Patient: Less than 30
[2020-03-04] MEDS: PANTOPRAZOLE 40 MG/10 ML VIAL IV SCH (12:05)
--- NOTE | 2020-03-04 12:54 | P.HPIM ---
History of Present Illness H&P Date: 03/04/20 Te Brady, is a 74-year-old male who presented to [facility] emergency room after sustaining a fall at home while getting out of the shower and having difficulty standing up and walking, called EMS and patient was brought in to [facility] emergency room, he was having significant pain in the left hip area, x-ray of the left hip and computed tomography scan of the left hip did not reveal any evidence of acute fracture, however patient was unable to stand and walk, he was admitted to medical floor orthopedic surgery consultation was requested. Patient states that 3 days prior to this presentation, patient had a similar incidents when he fell while trying to get out of bed, he was and able to stand or walk EMS were called and patient was brought in to emergency room he was here for several hours prior to being discharged home. Patient has a known history of stroke with expressive aphasia, which makes obtaining history and review of systems from him extremely difficult, was answering most of the questions. He also has a known history of diabetes mellitus type 2 history of hypertension history of hyperlipidemia history of peripheral neuropathy history of morbid obesity and history of osteoarthritis. At this time patient is complaining of pain in the left hip and difficulty standing up otherwise he denies any complaints. There is no fever or chills no headache or dizziness no chest pain no shortness of breath no cough no nausea or vomiting no abdominal pain no diarrhea no blood in the stools no burning with urination no frequency or urgency and no hematuria. Past Medical History Past Medical History: Atrial Fibrillation, Heart Failure, COPD, Dementia, Hypertension, Myocardial Infarction ([place]), Osteoarthritis ([place]), Sleep Apnea/CPAP/BIPAP Additional Past Medical History / Comment(s): uses cpap, abdominal hernia, lupe leg venous stasis. exposure agent orange, high ammonia Last Myocardial Infarction Date:: unsure History of Any Multi-Drug Resistant Organisms: MRSA Date of last positivie culture/infection: 12/10/18 MDRO Source:: Urine Past Surgical History: Cholecystectomy, Hernia Repair, Joint Replacement, Pacemaker Additional Past Surgical History / Comment(s): heart valve replacement, Bilat cataract surgery, left knee replacement. hernia surgery Past Anesthesia/Blood Transfusion Reactions: No Reported Reaction Type of Cardiac Device: Permanent Pacemaker Device Placement Date:: 2016 Past Psychological History: Anxiety Additional Psychological History / Comment(s): dementia Smoking Status: Never smoker Past Alcohol Use History: None Reported Additional Past Alcohol Use History / Comment(s): starting smoking age 21, 2ppd quit 2009 Past Drug Use History: None Reported - Past Family History Mother Family Medical History: Cancer Additional Family Medical History / Comment(s): breast cancer Sister(s) Family Medical History: Cancer, Myocardial Infarction ([place]) Father Family Medical History: Myocardial Infarction ([place]) Medications and Allergies Home Medications Medication Instructions Recorded Confirmed Type Cholecalciferol [Vitamin D3 (25 2,000 unit PO DAILY 04/19/17 03/03/20 History Mcg = 1000 Iu)] Clotrimazole/Betamethasone Dip 1 applic TOPICAL BID 04/19/17 03/03/20 History [Lotrisone Cream] Donepezil [Aricept] 10 mg PO DAILY 04/19/17 03/03/20 History Ferrous Sulfate [Iron (65 MG 325 mg PO DAILY 04/19/17 03/03/20 History Elemental)] Magnesium Oxide [Mag-Ox] 500 mg PO DAILY 04/19/17 03/03/20 History Memantine HCl [Namenda Xr] 28 mg PO DAILY@1200 04/19/17 03/03/20 History Spironolactone [Aldactone] 25 mg PO BID 04/19/17 03/03/20 History Warfarin [Coumadin] 10 mg PO MOTUWETHFRSA 04/19/17 03/03/20 History Enalapril [Vasotec] 2.5 mg PO BID #60 tablet 04/20/17 03/03/20 Rx Metoprolol Succinate (ER) [Toprol 50 mg PO DAILY #30 tab.er.24h 04/20/17 03/03/20 Rx XL] Albuterol Sulfate [Proventil Hfa] 1 - 2 puff INHALATION RT-Q4H PRN 11/10/18 03/03/20 History Atorvastatin Calcium [Lipitor] 10 mg PO HS 11/10/18 03/03/20 History Budesonide/Formoterol Fumarate 2 puff INHALATION RT-BID 11/10/18 03/03/20 History [Symbicort 160-4.5 Mcg Inhaler] Furosemide [Lasix] 40 mg PO BID 11/10/18 03/03/20 History Warfarin Sodium 5 mg PO LACY 03/03/20 03/03/20 History Allergies Allergy/AdvReac Type Severity Reaction Status Date / Time amoxicillin Allergy Rash/Hives Verified 03/03/20 14:08 Penicillins Allergy Rash/Hives Verified 03/03/20 14:08 Physical Exam Vitals: Vital Signs Temp Pulse Pulse Pulse Resp BP BP 03/04/20 12:23 98.0 F 91 16 130/80 03/04/20 11:49 03/04/20 08:46 98.3 F 79 17 113/64 03/04/20 08:39 98.3 F 59 L 18 117/57 03/04/20 03:00 98.2 F 82 20 129/60 03/03/20 19:26 98.4 F 71 20 143/63 03/03/20 15:00 98.2 F 60 18 143/63 03/03/20 14:37 97.7 F 86 18 03/03/20 14:04 63 18 132/77 Pulse Ox 03/04/20 12:23 99 03/04/20 11:49 96 03/04/20 08:46 96 03/04/20 08:39 95 03/04/20 03:00 97 03/03/20 19:26 96 03/03/20 15:00 93 L 03/03/20 14:37 03/03/20 14:04 98 Intake and Output 03/03/20 03/04/20 03/04/20 22:59 06:59 14:59 Output Total 1 Balance -1 Output: Urine 1 Other: # Voids 1 1 # Bowel Movements 1 In general patient is alert and oriented 3 in no distress HEENT head normocephalic and atraumatic Neck is supple no JVD no goiter no lymphadenopathy Chest exam reveals a few scattered rhonchi no wheezing Cardiac exam reveals regular heart sounds no murmurs Abdomen is soft nontender no organomegaly with normal bowel sounds, there is erythema and multiple ulceration in the lower abdominal fold Extremity exam reveals no edema no cyanosis or clubbing there is a scabbed ulcer on the right pretibial area Results CBC & Chem 7: 03/03/20 12:41 03/04/20 07:08 Labs: Abnormal Lab Results - Last 24 Hours (Table) 03/03/20 03/03/20 03/03/20 Range/Units 12:41 12:41 12:41 RBC 3.95 L (4.30-5.90) m/uL MCV 101.1 H (80.0-100.0) fL Neutrophils # 8.5 H (1.3-7.7) k/uL Lymphocytes # 0.5 L (1.0-4.8) k/uL PT 39.8 H (9.0-12.0) sec INR 4.0 H (<1.2) APTT 39.7 H (22.0-30.0) sec Sodium 135 L (137-145) mmol/L Potassium 5.2 H (3.5-5.1) mmol/L BUN 40 H (9-20) mg/dL Glucose 120 H (74-99) mg/dL Calcium (8.4-10.2) mg/dL Total Bilirubin 2.2 H (0.2-1.3) mg/dL 03/04/20 03/04/20 Range/Units 07:08 07:08 RBC (4.30-5.90) m/uL MCV (80.0-100.0) fL Neutrophils # (1.3-7.7) k/uL Lymphocytes # (1.0-4.8) k/uL PT 39.1 H (9.0-12.0) sec INR 4.0 H (<1.2) APTT (22.0-30.0) sec Sodium 135 L (137-145) mmol/L Potassium (3.5-5.1) mmol/L BUN 33 H (9-20) mg/dL Glucose (74-99) mg/dL Calcium 8.3 L (8.4-10.2) mg/dL Total Bilirubin (0.2-1.3) mg/dL Thrombosis Risk Factor Assmnt - Choose All That Apply Any of the Below Risk Factors Present?: Yes Each Factor Represents 1 point: Abnormal pulmonary function (COPD), Obesity (BMI >25) Other Risk Factors: Yes Each Risk Factor Represents 2 Points: Age 61-74 years Other congenital or acquired thrombophilia - If yes, enter type in comment: No Thrombosis Risk Factor Assessment Total Risk Factor Score: 4 Thrombosis Risk Factor Assessment Level: Moderate Risk Assessment and Plan Plan: 1. Fall with difficulty standing and walking, with pain in the left hip no evidence of fracture orthopedic surgery consultation requested 2. Physical debility physical therapy and occupational therapy requested patient may need rehab admission 3. Underlying history of insulin-dependent diabetes mellitus 4. Underlying history of hypertension 5. Underlying history of hyperlipidemia 6. Previous history of stroke with suppressive aphasia 7. Underlying history of morbid obesity At this time orthopedic surgery consultation requested Physical therapy and occupational therapy consult Will follow closely patient may need rehabilitation admission after this acute admission For DVT prophylaxis will give subcu Lovenox for GI prophylaxis will give omeprazole Prognosis is guarded, will follow closely
--- NOTE | 2020-03-04 12:57 | P.HPADDEND ---
H&P Addendum H&P Addendum Date: 03/04/20 For DVT prophylaxis patient is maintained on Coumadin His INR is elevated at 4 No Coumadin on 03/04/2020 Will recheck INR on 03/05/2020
[2020-03-04] MEDS: FUROSEMIDE 40 MG TAB PO SCH (17:52)
[2020-03-04] MEDS: SODIUM CHLORIDE 0.9% 1,000 ML IV SCH (17:53)
[2020-03-04] MEDS ORDERED: WARFARIN 0.5 MG TAB PO ONE (18:00)
[2020-03-04] MEDS: ALBUTEROL NEBULIZED 2.5 MG/3 ML INHALATION PRN (20:16)
[2020-03-04] MEDS: SYMBICORT 160-4.5 MCG INHALER INHALATION SCH (20:16)
[2020-03-04] MEDS: ATORVASTATIN 10 MG TAB PO SCH (22:27)
[2020-03-04] MEDS: SPIRONOLACTONE 25 MG TAB PO SCH (22:27)
[2020-03-04] MEDS: CLOTRIMAZOLE/BETAMETH 1-0.05% CREAM 45 GM TUBE TOPICAL SCH (22:27)
[2020-03-04] MEDS: MEMANTINE 10 MG TAB PO SCH (22:28)
[2020-03-05 05:39] LABS: Basophils # (A) 0.1 k/uL (0-0.2); Basophils % (A) 1 %; Eosinophils # (A) 0.2 k/uL (0-0.7); Eosinophils % (A) 2 %; HCT 36.1 % (39.0-53.0); HGB 11.9 gm/dL (13.0-17.5); Lymphocytes # (A) 0.9 k/uL (1.0-4.8); Lymphocytes % (A) 9 %; MCH 33.7 pg (25.0-35.0); MCHC 32.9 g/dL (31.0-37.0); MCV 102.5 fL (80.0-100.0); Macrocytosis Slight; Mean Platelet Volume 6.9; Monocytes # (A) 0.6 k/uL (0-1.0); Monocytes % (A) 6 %; Neutrophils # (A) 7.6 k/uL (1.3-7.7); Neutrophils % (A) 81 %; Platelet Count 170 k/uL (150-450); RBC 3.53 m/uL (4.30-5.90); RDW 14.1 % (11.5-15.5); WBC 9.5 k/uL (3.8-10.6)
[2020-03-05] MEDS: ALBUTEROL NEBULIZED 2.5 MG/3 ML INHALATION PRN (07:16)
[2020-03-05] MEDS: SYMBICORT 160-4.5 MCG INHALER INHALATION SCH ×2 (07:17→21:16)
[2020-03-05] MEDS ORDERED: WARFARIN 10 MG TAB PO SCH (09:00)
[2020-03-05 09:13] LABS: INR 3.11 (0.90-1.11); Prothrombin Time 31.9 sec (9.9-11.9)
[2020-03-05] MEDS: SPIRONOLACTONE 25 MG TAB PO SCH ×2 (09:37→23:30)
[2020-03-05] MEDS: FUROSEMIDE 40 MG TAB PO SCH ×2 (09:37→15:29)
[2020-03-05] MEDS: MAGNESIUM OXIDE 400 MG TAB PO SCH (09:37)
[2020-03-05] MEDS: CHOLECALCIFEROL 1,000 UNIT TAB PO SCH (09:37)
[2020-03-05] MEDS: METOPROLOL SUCCINATE (ER) 50 MG TAB.ER.24H PO SCH (09:38)
[2020-03-05] MEDS: DONEPEZIL 10 MG TAB PO SCH (09:38)
[2020-03-05] MEDS: lisinopriL 10 MG TAB PO SCH (09:38)
[2020-03-05] MEDS: FERROUS SULFATE 325 MG TAB PO SCH (09:38)
[2020-03-05] MEDS: PANTOPRAZOLE 40 MG/10 ML VIAL IV SCH (09:39)
[2020-03-05] MEDS: MEMANTINE 10 MG TAB PO SCH ×2 (09:40→23:31)
[2020-03-05] MEDS: CLOTRIMAZOLE/BETAMETH 1-0.05% CREAM 45 GM TUBE TOPICAL SCH ×2 (09:46→23:31)
[2020-03-05 10:25] LABS: African American GFR (CKD) 98.5 (60.0-200.0); Albumin 3.1 g/dL (3.80-4.90); Albumin/Globulin Ratio 1.55 (1.60-3.17); Anion Gap 9.6 mmol/L (4.00-12.00); BUN/Creat Ratio 27.78 Ratio (12.00-20.00); Calcium 8.7 mg/dL (8.7-10.3); Carbon Dioxide 24.4 mmol/L (21.6-31.8); Potassium 4.8 mmol/L (3.5-5.5); Total Bilirubin 1.5 mg/dL (0.3-1.2); Total Protein 5.1 g/dL (6.2-8.2)
[2020-03-05] MEDS: SODIUM CHLORIDE 0.9% 1,000 ML IV SCH (12:02)
--- NOTE | 2020-03-05 12:53 | P.CONS ---
History of Present Illness - Reason for Consult Consult date: 03/05/20 wound care - History of Present Illness this is a 74-year-old pleasant male being seen by the wound care center for nonhealing ulceration to the right anterior leg and abdominal folds. Patient states that the ulceration started approximately a few weeks ago. The leg ulceration was caused from a fall in the abdominal fold ulcerations have been there for that. Patient has past medical history of morbid obesity, atrial fibrillation, hypertension, heart failure, COPD, myocardial infarction, also arthritis, sleep apnea, uses CPAP machine. Bilateral venous stasis Review of Systems Review Of Systems: Constitutional: No fever, no chills, no night sweats. No weight change. No weakness, fatigue or lethargy. No daytime sleepiness. Integumentary:reports wounds, no lesions. No rash or pruritus. No unusual bruising. No change in hair or nails. Past Medical History Past Medical History: Atrial Fibrillation, Heart Failure, COPD, Dementia, Hypertension, Myocardial Infarction ([place]), Osteoarthritis (OA), Sleep Apnea/CPAP/ BIPAP Additional Past Medical History / Comment(s): uses cpap, abdominal hernia, lupe leg venous stasis. exposure agent orange, high ammonia Last Myocardial Infarction Date:: unsure History of Any Multi-Drug Resistant Organisms: MRSA Year Discovered:: 12/10/18 MDRO Source:: Urine Past Surgical History: Cholecystectomy, Hernia Repair, Joint Replacement, Pacemaker Additional Past Surgical History / Comment(s): heart valve replacement, Bilat cataract surgery, left knee replacement. hernia surgery Past Anesthesia/Blood Transfusion Reactions: No Reported Reaction Type of Cardiac Device: Permanent Pacemaker Device Placement Date:: 2016 Past Psychological History: Anxiety Additional Psychological History / Comment(s): dementia Smoking Status: Never smoker Past Alcohol Use History: None Reported Additional Past Alcohol Use History / Comment(s): starting smoking age 21, 2ppd quit 2009 Past Drug Use History: None Reported - Past Family History Mother Family Medical History: Cancer Additional Family Medical History / Comment(s): breast cancer Sister(s) Family Medical History: Cancer, Myocardial Infarction ([place]) Father Family Medical History: Myocardial Infarction ([place]) Medications and Allergies Home Medications Medication Instructions Recorded Confirmed Type Cholecalciferol [Vitamin D3 (25 2,000 unit PO DAILY 04/19/17 03/03/20 History Mcg = 1000 Iu)] Clotrimazole/Betamethasone Dip 1 applic TOPICAL BID 04/19/17 03/03/20 History [Lotrisone Cream] Donepezil [Aricept] 10 mg PO DAILY 04/19/17 03/03/20 History Ferrous Sulfate [Iron (65 MG 325 mg PO DAILY 04/19/17 03/03/20 History Elemental)] Magnesium Oxide [Mag-Ox] 500 mg PO DAILY 04/19/17 03/03/20 History Memantine HCl [Namenda Xr] 28 mg PO DAILY@1200 04/19/17 03/03/20 History Spironolactone [Aldactone] 25 mg PO BID 04/19/17 03/03/20 History Warfarin [Coumadin] 10 mg PO MOTUWETHFRSA 04/19/17 03/03/20 History Enalapril [Vasotec] 2.5 mg PO BID #60 tablet 04/20/17 03/03/20 Rx Metoprolol Succinate (ER) [Toprol 50 mg PO DAILY #30 tab.er.24h 04/20/17 03/03/20 Rx XL] Albuterol Sulfate [Proventil Hfa] 1 - 2 puff INHALATION RT-Q4H PRN 11/10/18 03/03/20 History Atorvastatin Calcium [Lipitor] 10 mg PO HS 11/10/18 03/03/20 History Budesonide/Formoterol Fumarate 2 puff INHALATION RT-BID 11/10/18 03/03/20 History [Symbicort 160-4.5 Mcg Inhaler] Furosemide [Lasix] 40 mg PO BID 11/10/18 03/03/20 History Warfarin Sodium 5 mg PO LACY 03/03/20 03/03/20 History Allergies Allergy/AdvReac Type Severity Reaction Status Date / Time amoxicillin Allergy Rash/Hives Verified 03/03/20 14:08 Penicillins Allergy Rash/Hives Verified 03/03/20 14:08 Physical Exam Vitals: Vital Signs Temp Pulse Pulse Pulse Resp BP Pulse Ox 03/05/20 07:27 72 03/05/20 07:17 72 03/05/20 00:00 59 L 85 17 03/04/20 20:42 98.5 F 85 17 107/52 97 03/04/20 20:34 76 03/04/20 20:16 76 97 Intake and Output 1003/05/20 03/05/20 22:59 06:59 14:59 Intake Total 800 Balance 800 Intake: Intake, IV Titration 60 Amount Sodium Chloride 0.9% 1, 60 000 ml @ 20 mls/hr IV . Q24H [facility] Rx#:[id number] Oral 740 Other: Voiding Method Urinal Urinal Urinal # Voids 1 1 Physical exam: General Appearance: Alert, cooperative, no distress, appears stated age. Skinbilateral abdominal folds have multiple ulcerations Limited to skin breakdown with maceration and excoriation noted. Right anterior lower extremity ulceration is result from trauma with a hematoma noted. Necrotic tissue was removed, ulcerations Limited to skin breakdown granulation seen throughout wound bed with sangious drainage. Wound edges attached to wound base.all other Skin color, texture, tugor normal, no rashes or lesions. Neurologic: Alert oriented x3 Results CBC & Chem 7: 03/05/20 04:28 03/05/20 04:28 Labs: Abnormal Lab Results - Last 24 Hours (Table) 03/05/20 03/05/20 03/05/20 Range/Units 04:28 04:28 04:28 RBC 3.53 L (4.30-5.90) m/uL Hgb 11.9 L (13.0-17.5) gm/dL Hct 36.1 L (39.0-53.0) % MCV 102.5 H (80.0-100.0) fL Lymphocytes # 0.9 L (1.0-4.8) k/uL PT 31.9 H (9.9-11.9) sec INR 3.11 H (0.90-1.11) BUN/Creatinine Ratio 27.78 H (12.00-20.00) Ratio Total Bilirubin 1.5 H (0.3-1.2) mg/dL Total Protein 5.1 L (6.2-8.2) g/dL Albumin 3.10 L (3.80-4.90) g/dL Albumin/Globulin Ratio 1.55 L (1.60-3.17) g/dL Assessment and Plan (1) Nonhealing ulcer of right lower leg limited to breakdown of skin Current Visit: Yes Status: Acute Code(s): L97.911 - NON-PRS CHR ULC UNSP PRT OF R LOW LEG LIMITED TO BRKDWN SKIN SNOMED Code(s): 78986374 (2) Non-healing ulcer of multiple sites, limited to breakdown of skin Current Visit: Yes Status: Acute Code(s): L98.491 - NON-PRS CHRONIC ULCER SKIN/ SITES LIMITED TO BRKDWN SKIN SNOMED Code(s): 78432941 (3) Diabetes mellitus with skin ulcer Current Visit: Yes Status: Acute Code(s): E11.622 - TYPE 2 DIABETES MELLITUS WITH OTHER SKIN ULCER; L98.499 - NON-PRESSURE CHRONIC ULCER OF SKIN OF SITES W UNSP SEVERITY SNOMED Code(s): 62234045 Plan: right anterior leg apply zinc barrier cream dry gauze, secure with Cory wrap. Abdominal folds apply moistened absorptive silver dry fit sheets. Change Thursday May change dry that sheets as needed. thank you, for the consultation any questions please contact the wound care center DNP note has been reviewed and discussed with Dr. Ma and the impression and plan of care has been directed as dictated.
--- NOTE | 2020-03-05 15:11 | P.PN ---
Subjective Progress Note Date: 03/05/20 Principal diagnosis: Left hip pain, left hip osteoarthritis, left knee pain, multiple medical comorbidities Patient was evaluated at bedside, his is present with him. His pain in the left hip has got slightly better. He still having a very difficult time lifting his leg. He was able to get up with physical therapy, ambulate slightly around the room with walker. Lastly his again about the falls, he had 2 recent falls 1 last Thursday and one on Thursday. Since the most recent fall ice are difficult time with the left leg. He does have a history of a total knee arthroplasty in the left knee many years ago. Objective - Vital Signs Vital signs: Vital Signs Temp 98.1 F 03/05/20 13:00 Pulse 60 03/05/20 13:00 Resp 18 03/05/20 13:00 BP 88/53 03/05/20 13:00 Pulse Ox 99 03/05/20 13:00 Intake & Output 03/04/20 03/05/20 03/05/20 18:59 06:59 18:59 Intake Total 710 310 Balance 710 310 Intake: Intake, IV Titration 60 Amount Sodium Chloride 0.9% 1, 60 000 ml @ 20 mls/hr IV . Q24H [facility] Rx#:[id number] Oral 710 250 Other: Voiding Method Urinal Urinal Urinal # Voids 1 1 1 - Exam Left lower extremity: Bruising is noted over the anterior aspect of the knee, unable to appreciate any effusion. His tenderness with palpation surrounding the area of the bruise. He has no medial or lateral joint line tenderness. He's stable to varus and valgus force. Patient has a hard time flexing the knee, he can flex to about 30. He cannot actively extend the knee. Logroll maneuver reproduces no pain in the groin. I'm able to actively flex the hip with minimal discomfort. Active internal and external rotation of the hip does reproduce groin pain. Sensory exam light touch throughout the lower extremity is intact. Plantar flexion, dorsiflexion, EHL, FHL are intact,no can strength deficit. - Labs CBC & Chem 7: 03/05/20 04:28 03/05/20 04:28 Labs: Abnormal Lab Results - Last 24 Hours (Table) 03/05/20 03/05/20 03/05/20 Range/Units 04:28 04:28 04:28 RBC 3.53 L (4.30-5.90) m/uL Hgb 11.9 L (13.0-17.5) gm/dL Hct 36.1 L (39.0-53.0) % MCV 102.5 H (80.0-100.0) fL Lymphocytes # 0.9 L (1.0-4.8) k/uL PT 31.9 H (9.9-11.9) sec INR 3.11 H (0.90-1.11) BUN/Creatinine Ratio 27.78 H (12.00-20.00) Ratio Total Bilirubin 1.5 H (0.3-1.2) mg/dL Total Protein 5.1 L (6.2-8.2) g/dL Albumin 3.10 L (3.80-4.90) g/dL Albumin/Globulin Ratio 1.55 L (1.60-3.17) g/dL Assessment and Plan Assessment: Left hip pain Severe left hip osteoarthritis Status post fall from standing Multiple medical comorbidities Plan: With the inability to straight leg raise, x-rays will be ordered to evaluate his left knee replacement. Await results Recommend wound care evaluation for the wound on the right lower extremity and also inguinal folds Recommend physical therapy and and occupational therapy workup Weight-bear as tolerated, utilize walker at all times Pain control per primary medical service DVT prophylaxis per primary medical service Further recommendations to follow Time with Patient: Less than 30
--- NOTE | 2020-03-05 15:45 | XR ---
Left knee HISTORY: Trauma and pain, bruise 3 views the left knee No comparisons Patient is status post left knee arthroplasty. Bone mineralization is reduced which could limit sensi tivity. Alignment is anatomic. There are vascular calcifications present and noted incidentally. Surg ical rhonda are present in the medial aspect of the proximal left leg soft tissues. Probable heterot opic new bone formation present in the suprapatellar location and within the soft tissues along the p atellar tendon. IMPRESSION: No acute fracture or dislocation.
[2020-03-05] MEDS ORDERED: WARFARIN 3 MG TAB PO ONE (18:00)
--- NOTE | 2020-03-05 18:50 | P.PN ---
Subjective Progress Note Date: 03/05/20 Te Brady, is a 74-year-old male who presented to [facility] emergency room after sustaining a fall at home while getting out of the shower and having difficulty standing up and walking, called EMS and patient was brought in to [facility] emergency room, he was having significant pain in the left hip area, x-ray of the left hip and computed tomography scan of the left hip did not reveal any evidence of acute fracture, however patient was unable to stand and walk, he was admitted to medical floor orthopedic surgery consultation was requested. Patient states that 3 days prior to this presentation, patient had a similar incidents when he fell while trying to get out of bed, he was and able to stand or walk EMS were called and patient was brought in to emergency room he was here for several hours prior to being discharged home. Patient has a known history of stroke with expressive aphasia, which makes obtaining history and review of systems from him extremely difficult, was answering most of the questions. He also has a known history of diabetes mellitus type 2 history of hypertension history of hyperlipidemia history of peripheral neuropathy history of morbid obesity and history of osteoarthritis. At this time patient is complaining of pain in the left hip and difficulty standing up otherwise he denies any complaints. There is no fever or chills no headache or dizziness no chest pain no shortness of breath no cough no nausea or vomiting no abdominal pain no diarrhea no blood in the stools no burning with urination no frequency or urgency and no hematuria. On 03/05/2020 patient was seen and examined on the medical floor he is alert and oriented 3 in no apparent distress, he is still complaining of left hip pain and complaining of difficulty standing up and walking otherwise he denies any complaints there is no fever or chills no headache or dizziness no chest pain no shortness of breath no cough no nausea or vomiting no abdominal pain no diarrhea no blood in the stools no burning with urination no frequency or urgency no hematuria Objective - Vital Signs Vital signs: Vital Signs Temp 98.5 F 03/04/20 20:42 Pulse 72 03/05/20 07:27 Resp 17 03/05/20 00:00 BP 107/52 03/04/20 20:42 Pulse Ox 97 03/04/20 20:42 Intake & Output 03/04/20 03/05/20 03/05/20 18:59 06:59 18:59 Intake Total 710 310 Balance 710 310 Intake: Intake, IV Titration 60 Amount Sodium Chloride 0.9% 1, 60 000 ml @ 20 mls/hr IV . Q24H [facility] Rx#:[id number] Oral 710 250 Other: Voiding Method Urinal Urinal # Voids 1 1 1 - Exam In general patient is alert and oriented 3 in no distress HEENT head normocephalic and atraumatic Neck is supple no JVD no goiter no lymphadenopathy Chest exam reveals a few scattered rhonchi no wheezing Cardiac exam reveals regular heart sounds no murmurs Abdomen is soft nontender no organomegaly with normal bowel sounds, there is erythema and multiple ulceration in the lower abdominal fold Extremity exam reveals no edema no cyanosis or clubbing there is a scabbed ulcer on the right pretibial area - Labs CBC & Chem 7: 03/05/20 04:28 03/05/20 04:28 Labs: Abnormal Lab Results - Last 24 Hours (Table) 03/05/20 Range/Units 04:28 RBC 3.53 L (4.30-5.90) m/uL Hgb 11.9 L (13.0-17.5) gm/dL Hct 36.1 L (39.0-53.0) % MCV 102.5 H (80.0-100.0) fL Lymphocytes # 0.9 L (1.0-4.8) k/uL Assessment and Plan Plan: 1. Fall with difficulty standing and walking, with pain in the left hip no evidence of fracture orthopedic surgery consultation requested 2. Physical debility physical therapy and occupational therapy requested patient may need rehab admission 3. Underlying history of insulin-dependent diabetes mellitus 4. Underlying history of hypertension 5. Underlying history of hyperlipidemia 6. Previous history of stroke with suppressive aphasia 7. Underlying history of morbid obesity At this time orthopedic surgery consultation requested Physical therapy and occupational therapy consult Will follow closely patient may need rehabilitation admission after this acute admission For DVT prophylaxis will give subcu Lovenox for GI prophylaxis will give omeprazole Prognosis is guarded, will follow closely
[2020-03-05] MEDS: ATORVASTATIN 10 MG TAB PO SCH (23:30)
[2020-03-06 05:56] LABS: Basophils # (A) 0.1 k/uL (0-0.2); Basophils % (A) 1 %; Eosinophils # (A) 0.2 k/uL (0-0.7); Eosinophils % (A) 2 %; HGB 11.1 gm/dL (13.0-17.5); Lymphocytes # (A) 0.9 k/uL (1.0-4.8); Lymphocytes % (A) 9 %; MCH 33.9 pg (25.0-35.0); MCHC 32.7 g/dL (31.0-37.0); MCV 103.7 fL (80.0-100.0); Macrocytosis Slight; Mean Platelet Volume 7.1; Monocytes # (A) 0.6 k/uL (0-1.0); Monocytes % (A) 6 %; Neutrophils # (A) 8.4 k/uL (1.3-7.7); Neutrophils % (A) 82 %; Platelet Count 172 k/uL (150-450); RBC 3.27 m/uL (4.30-5.90); RDW 14.2 % (11.5-15.5); WBC 10.2 k/uL (3.8-10.6)
[2020-03-06] MEDS: CHOLECALCIFEROL 1,000 UNIT TAB PO SCH (07:13)
[2020-03-06] MEDS: DONEPEZIL 10 MG TAB PO SCH (07:13)
[2020-03-06] MEDS: FUROSEMIDE 40 MG TAB PO SCH ×2 (07:13→16:19)
[2020-03-06] MEDS: lisinopriL 10 MG TAB PO SCH (07:14)
[2020-03-06] MEDS: METOPROLOL SUCCINATE (ER) 50 MG TAB.ER.24H PO SCH (07:14)
[2020-03-06] MEDS: MAGNESIUM OXIDE 400 MG TAB PO SCH (07:14)
[2020-03-06] MEDS: FERROUS SULFATE 325 MG TAB PO SCH (07:14)
[2020-03-06] MEDS: PANTOPRAZOLE 40 MG TABLET PO SCH (07:14)
[2020-03-06] MEDS: SPIRONOLACTONE 25 MG TAB PO SCH ×2 (07:14→20:05)
[2020-03-06] MEDS: MEMANTINE 10 MG TAB PO SCH ×2 (07:15→20:04)
[2020-03-06] MEDS: CLOTRIMAZOLE/BETAMETH 1-0.05% CREAM 45 GM TUBE TOPICAL SCH ×2 (07:17→20:04)
[2020-03-06] MEDS: SYMBICORT 160-4.5 MCG INHALER INHALATION SCH ×2 (08:48→19:06)
[2020-03-06 09:20] LABS: INR 2.56 (0.90-1.11); Prothrombin Time 26.4 sec (9.9-11.9)
[2020-03-06 09:24] LABS: African American GFR (CKD) 39.9 (60.0-200.0); Albumin 2.8 g/dL (3.80-4.90); Albumin/Globulin Ratio 1.56 (1.60-3.17); Anion Gap 7.1 mmol/L (4.00-12.00); BUN/Creat Ratio 20.53 Ratio (12.00-20.00); Calcium 8.4 mg/dL (8.7-10.3); Carbon Dioxide 26.9 mmol/L (21.6-31.8); Globulin 1.8 g/dL (1.6-3.3); Non-African American GFR(CKD) 34.5 (60.0-200.0); Potassium 4.7 mmol/L (3.5-5.5); Total Bilirubin 1.2 mg/dL (0.3-1.2); Total Protein 4.6 g/dL (6.2-8.2)
--- NOTE | 2020-03-06 11:58 | P.PN ---
Subjective Progress Note Date: 03/06/20 Principal diagnosis: Left hip pain, left hip osteoarthritis, left knee pain, left knee contusion, multiple medical comorbidities Patient was evaluated at bedside, , he is resting in his hospital chair. He is feeling a lot better today. He seems stronger today. The pain is slightly improved. X-rays were done of the knee yesterday, they demonstrated no acute osseous abnormalities. Currently denies any chest pain, shortness of breath, fever or chills, nausea or vomiting. Objective - Vital Signs Vital signs: Vital Signs Temp 98.7 F 03/06/20 11:18 Pulse 60 03/06/20 11:18 Resp 16 03/06/20 11:18 BP 93/57 03/06/20 11:18 Pulse Ox 100 03/06/20 11:18 Intake & Output 03/05/20 03/06/20 03/06/20 18:59 06:59 18:59 Intake Total 400 750 Output Total 1 400 Balance 399 350 Intake: Intake, IV Titration 0 Amount Sodium Chloride 0.9% 1, 0 000 ml @ 20 mls/hr IV . Q24H [facility] Rx#:[id number] Oral 400 750 Output: Urine 1 400 Other: Voiding Method Urinal Urinal Urinal # Voids 1 - Exam Left lower extremity: Bruising is noted over the anterior aspect of the knee, unable to appreciate any effusion. His tenderness with palpation surrounding the area of the bruise. He has no medial or lateral joint line tenderness. He's stable to varus and valgus force. Patient is able to fully extend the knee while sitting today, he is also able to bend past 90 minimal discomfort. Logroll maneuver reproduces no pain in the groin. I'm able to actively flex the hip with minimal discomfort. Sensory exam light touch throughout the lower extremity is intact. Plantar flexion, dorsiflexion, EHL, FHL are intact,no can strength deficit. - Labs CBC & Chem 7: 03/06/20 05:06 03/06/20 05:06 Labs: Abnormal Lab Results - Last 24 Hours (Table) 03/06/20 03/06/20 03/06/20 Range/Units 05:06 05:06 05:06 RBC 3.27 L (4.30-5.90) m/uL Hgb 11.1 L (13.0-17.5) gm/dL Hct 34.0 L (39.0-53.0) % MCV 103.7 H (80.0-100.0) fL Neutrophils # 8.4 H (1.3-7.7) k/uL Lymphocytes # 0.9 L (1.0-4.8) k/uL PT 26.4 H (9.9-11.9) sec INR 2.56 H (0.90-1.11) BUN 39.0 H (9.0-27.0) mg/dL Creatinine 1.9 H (0.6-1.5) mg/dL Est GFR (CKD-EPI)AfAm 39.9 L (60.0-200.0) Est GFR (CKD-EPI)NonAf 34.5 L (60.0-200.0) BUN/Creatinine Ratio 20.53 H (12.00-20.00) Ratio Calcium 8.4 L (8.7-10.3) mg/dL Total Protein 4.6 L (6.2-8.2) g/dL Albumin 2.80 L (3.80-4.90) g/dL Albumin/Globulin Ratio 1.56 L (1.60-3.17) g/dL Assessment and Plan Assessment: Left hip pain Severe left hip osteoarthritis Left knee pain Left knee contusion Status post fall from standing Multiple medical comorbidities Plan: X-rays of the left knee demonstrated no acute osseous abnormalities, total knee replacement hardware remains stable, no obvious lucencies. Patient is able to extend and flex the knee a lot better today. Recommend physical therapy and and occupational therapy workup Weight-bear as tolerated, utilize walker at all times Pain control per primary medical service DVT prophylaxis per primary medical service Orthopedic standpoint, patient is stable, no further imaging at this time. Recommend rehab placement with daily physical therapy. Patient can follow-up with us in the outpatient setting for recheck in the next 2-3 weeks. Time with Patient: Less than 30
[2020-03-06] MEDS: SODIUM CHLORIDE 0.9% 1,000 ML IV SCH (16:19)
[2020-03-06] MEDS ORDERED: WARFARIN 3 MG TAB PO ONE (18:00)
--- NOTE | 2020-03-06 18:13 | US ---
EXAMINATION TYPE: US kidneys/renal and bladder DATE OF EXAM: 03/06/2020 COMPARISON: CT CLINICAL HISTORY: elevated Cr. Abnormal labs EXAM MEASUREMENTS: Right Kidney: 11.7 x 6.8 x 6.4 cm Left Kidney: 10.0 x 6.0 x 5.3 cm Severely limited exam due to severe morbid obesity (>400 lbs) and immobile Right Kidney: No evidence of hydro, very limited visualization Left Kidney: No evidence of hydro, very limited visualization Bladder: Unable to visualize to due large pt body habitus There is no evidence for hydronephrosis at this point in time. No nephrolithiasis is seen. No ac s are identified. The urinary bladder is anechoic. Bilateral ureteral jets are seen. IMPRESSION: No significant abnormality of the renal ultrasound.
--- NOTE | 2020-03-06 18:30 | P.PN ---
Subjective Progress Note Date: 03/06/20 Te Brady, is a 74-year-old male who presented to [facility] emergency room after sustaining a fall at home while getting out of the shower and having difficulty standing up and walking, called EMS and patient was brought in to [facility] emergency room, he was having significant pain in the left hip area, x-ray of the left hip and computed tomography scan of the left hip did not reveal any evidence of acute fracture, however patient was unable to stand and walk, he was admitted to medical floor orthopedic surgery consultation was requested. Patient states that 3 days prior to this presentation, patient had a similar incidents when he fell while trying to get out of bed, he was and able to stand or walk EMS were called and patient was brought in to emergency room he was here for several hours prior to being discharged home. Patient has a known history of stroke with expressive aphasia, which makes obtaining history and review of systems from him extremely difficult, was answering most of the questions. He also has a known history of diabetes mellitus type 2 history of hypertension history of hyperlipidemia history of peripheral neuropathy history of morbid obesity and history of osteoarthritis. At this time patient is complaining of pain in the left hip and difficulty standing up otherwise he denies any complaints. There is no fever or chills no headache or dizziness no chest pain no shortness of breath no cough no nausea or vomiting no abdominal pain no diarrhea no blood in the stools no burning with urination no frequency or urgency and no hematuria. On 03/05/2020 patient was seen and examined on the medical floor he is alert and oriented 3 in no apparent distress, he is still complaining of left hip pain and complaining of difficulty standing up and walking otherwise he denies any complaints there is no fever or chills no headache or dizziness no chest pain no shortness of breath no cough no nausea or vomiting no abdominal pain no diarrhea no blood in the stools no burning with urination no frequency or urgency no hematuria. On 03/06/2020 patient was seen and examined on the medical floor he is alert, confused in no apparent distress, he is still complaining of left hip pain and difficulty standing BUN and creatinine are up today and patient is having very low urine output, at this time kidney ultrasound was ordered patient was started on IV fluid normal saline at 100 mL an hour and nephrology consultation was requested, otherwise there is no complaints there is no fever or chills no headache or dizziness no chest pain no shortness of breath no cough no nausea or vomiting no abdominal pain no diarrhea and no urinary symptoms Objective - Vital Signs Vital signs: Vital Signs Temp 98.7 F 03/06/20 11:18 Pulse 60 03/06/20 11:18 Resp 16 03/06/20 11:18 BP 93/57 03/06/20 11:18 Pulse Ox 100 03/06/20 11:18 Intake & Output 03/05/20 03/06/20 03/06/20 18:59 06:59 18:59 Intake Total 400 750 Output Total 1 400 Balance 399 350 Intake: Intake, IV Titration 0 Amount Sodium Chloride 0.9% 1, 0 000 ml @ 20 mls/hr IV . Q24H [facility] Rx#:[id number] Oral 400 750 Output: Urine 1 400 Other: Voiding Method Urinal Urinal Urinal # Voids 1 0 # Bowel Movements 0 - Exam In general patient is alert and oriented 3 in no distress HEENT head normocephalic and atraumatic Neck is supple no JVD no goiter no lymphadenopathy Chest exam reveals a few scattered rhonchi no wheezing Cardiac exam reveals regular heart sounds no murmurs Abdomen is soft nontender no organomegaly with normal bowel sounds, there is erythema and multiple ulceration in the lower abdominal fold Extremity exam reveals no edema no cyanosis or clubbing there is a scabbed ulcer on the right pretibial area - Labs CBC & Chem 7: 03/06/20 05:06 03/06/20 05:06 Labs: Abnormal Lab Results - Last 24 Hours (Table) 03/06/20 03/06/20 03/06/20 Range/Units 05:06 05:06 05:06 RBC 3.27 L (4.30-5.90) m/uL Hgb 11.1 L (13.0-17.5) gm/dL Hct 34.0 L (39.0-53.0) % MCV 103.7 H (80.0-100.0) fL Neutrophils # 8.4 H (1.3-7.7) k/uL Lymphocytes # 0.9 L (1.0-4.8) k/uL PT 26.4 H (9.9-11.9) sec INR 2.56 H (0.90-1.11) BUN 39.0 H (9.0-27.0) mg/dL Creatinine 1.9 H (0.6-1.5) mg/dL Est GFR (CKD-EPI)AfAm 39.9 L (60.0-200.0) Est GFR (CKD-EPI)NonAf 34.5 L (60.0-200.0) BUN/Creatinine Ratio 20.53 H (12.00-20.00) Ratio Calcium 8.4 L (8.7-10.3) mg/dL Total Protein 4.6 L (6.2-8.2) g/dL Albumin 2.80 L (3.80-4.90) g/dL Albumin/Globulin Ratio 1.56 L (1.60-3.17) g/dL Assessment and Plan Plan: 1. Fall with difficulty standing and walking, with pain in the left hip no evidence of fracture orthopedic surgery consultation requested 2. Physical debility physical therapy and occupational therapy requested patient may need rehab admission 3. Underlying history of insulin-dependent diabetes mellitus 4. Underlying history of hypertension 5. Underlying history of hyperlipidemia 6. Previous history of stroke with suppressive aphasia 7. Underlying history of morbid obesity 8. Elevated BUN and creatinine, which increased significantly since yesterday, will check urine ultrasound, start IV fluid normal saline at 100 mL an hour, co nsult nephrology, check CPK to rule out rhabdomyolysis At this time orthopedic surgery consultation requested Physical therapy and occupational therapy consult Will follow closely patient may need rehabilitation admission after this acute admission For DVT prophylaxis will give subcu Lovenox for GI prophylaxis will give omeprazole Prognosis is guarded, will follow closely
[2020-03-06] MEDS: ATORVASTATIN 10 MG TAB PO SCH (20:04)
[2020-03-07] MEDS: SYMBICORT 160-4.5 MCG INHALER INHALATION SCH ×2 (07:25→20:21)
[2020-03-07] MEDS: FUROSEMIDE 40 MG TAB PO SCH (08:30)
[2020-03-07] MEDS: lisinopriL 10 MG TAB PO SCH (08:30)
[2020-03-07] MEDS: METOPROLOL SUCCINATE (ER) 50 MG TAB.ER.24H PO SCH (08:31)
[2020-03-07] MEDS: CHOLECALCIFEROL 1,000 UNIT TAB PO SCH (08:48)
[2020-03-07] MEDS: PANTOPRAZOLE 40 MG TABLET PO SCH (08:48)
[2020-03-07] MEDS: FERROUS SULFATE 325 MG TAB PO SCH (08:48)
[2020-03-07] MEDS: MAGNESIUM OXIDE 400 MG TAB PO SCH (08:49)
[2020-03-07] MEDS: MEMANTINE 10 MG TAB PO SCH ×2 (08:49→20:49)
[2020-03-07] MEDS: DONEPEZIL 10 MG TAB PO SCH (08:49)
[2020-03-07] MEDS: SPIRONOLACTONE 25 MG TAB PO SCH (08:49)
[2020-03-07 09:01] LABS: INR 2.46 (0.90-1.11); Prothrombin Time 25.4 sec (9.9-11.9)
[2020-03-07 09:17] LABS: African American GFR (CKD) 30.1 (60.0-200.0); Anion Gap 6.8 mmol/L (4.00-12.00); BUN/Creat Ratio 22.08 Ratio (12.00-20.00); Calcium 8.2 mg/dL (8.7-10.3); Carbon Dioxide 26.2 mmol/L (21.6-31.8); Potassium 5.4 mmol/L (3.5-5.5)
[2020-03-07] MEDS: CLOTRIMAZOLE/BETAMETH 1-0.05% CREAM 45 GM TUBE TOPICAL SCH ×2 (09:22→20:45)
--- NOTE | 2020-03-07 10:02 | P.NPCON ---
History of Present Illness - Reason for Consult acute renal failure - History of Present Illness Reason for consultation: Acute kidney injury History of present illness: Patient is a 74-year-old male seen in consultation for acute kidney injury. Patient's baseline creatinine is near 1 and is up 2.4 today. Patient's blood pressure was low yesterday in the systolic 80s and he was started on IV fluids. He is currently maintained on normal saline at 100 mL an hour. He is also maintained on Lasix 40 mg orally twice daily as well as Aldactone. He is also on lisinopril. Patient states he did not urinate much yesterday during the day but did last night and again this morning. He denies chest pain or shortness of breath. No edema. No vomiting or diarrhea. Oral intake is fair. The pressure this morning was 104/52. No fever. Heart rate controlled. Denies chest pain or shortness of breath. Patient came to the hospital on March 03 due to fall. Patient states he was in the shower and his right leg gave out and he subsequently fell. He also has history of dementia. Denies family history of renal disease. I don't see any nonsteroidals and his home medications. He is not on any medications for diabetes. Vital signs are stable. General: The patient appeared well nourished and normally developed. HEENT: Head exam is unremarkable. Neck is without jugular venous distension. LUNGS: Breath sounds decreased. HEART: Rate and Rhythm are regular. ABDOMEN: Soft, nontender. EXTREMITITES: No clubbing, cyanosis, or edema. Chronic changes noted. Past Medical History Past Medical History: Atrial Fibrillation, Heart Failure, COPD, Dementia, Hyper tension, Myocardial Infarction ([place]), Osteoarthritis ([place]), Sleep Apnea/CPAP/BIPAP Additional Past Medical History / Comment(s): uses cpap, abdominal hernia, [place] leg venous stasis. exposure agent orange, high ammonia Last Myocardial Infarction Date:: unsure History of Any Multi-Drug Resistant Organisms: MRSA Date of last positivie culture/infection: 12/10/18 MDRO Source:: Urine Past Surgical History: Cholecystectomy, Hernia Repair, Joint Replacement, Pacemaker Additional Past Surgical History / Comment(s): heart valve replacement, Bilat cataract surgery, left knee replacement. hernia surgery Past Anesthesia/Blood Transfusion Reactions: No Reported Reaction Type of Cardiac Device: Permanent Pacemaker Device Placement Date:: 2016 Past Psychological History: Anxiety Additional Psychological History / Comment(s): dementia Smoking Status: Never smoker Past Alcohol Use History: None Reported Additional Past Alcohol Use History / Comment(s): starting smoking age 21, 2ppd quit 2009 Past Drug Use History: None Reported - Past Family History Mother Family Medical History: Cancer Additional Family Medical History / Comment(s): breast cancer Sister(s) Family Medical History: Cancer, Myocardial Infarction ([place]) Father Family Medical History: Myocardial Infarction ([place]) Medications and Allergies Home Medications Medication Instructions Recorded Confirmed Type Cholecalciferol [Vitamin D3 (25 2,000 unit PO DAILY 04/19/17 03/03/20 History Mcg = 1000 Iu)] Clotrimazole/Betamethasone Dip 1 applic TOPICAL BID 04/19/17 03/03/20 History [Lotrisone Cream] Donepezil [Aricept] 10 mg PO DAILY 04/19/17 03/03/20 History Ferrous Sulfate [Iron (65 MG 325 mg PO DAILY 04/19/17 03/03/20 History Elemental)] Magnesium Oxide [Mag-Ox] 500 mg PO DAILY 04/19/17 03/03/20 History Memantine HCl [Namenda Xr] 28 mg PO DAILY@1200 04/19/17 03/03/20 History Spironolactone [Aldactone] 25 mg PO BID 04/19/17 03/03/20 History Warfarin [Coumadin] 10 mg PO [id number] 04/19/17 03/03/20 History Enalapril [Vasotec] 2.5 mg PO BID #60 tablet 04/20/17 03/03/20 Rx Metoprolol Succinate (ER) [Toprol 50 mg PO DAILY #30 tab.er.24h 04/20/17 03/03/20 Rx XL] Albuterol Sulfate [Proventil Hfa] 1 - 2 puff INHALATION RT-Q4H PRN 11/10/18 03/03/20 History Atorvastatin Calcium [Lipitor] 10 mg PO HS 11/10/18 03/03/20 History Budesonide/Formoterol Fumarate 2 puff INHALATION RT-BID 11/10/18 03/03/20 History [Symbicort 160-4.5 Mcg Inhaler] Furosemide [Lasix] 40 mg PO BID 11/10/18 03/03/20 History Warfarin Sodium 5 mg PO LACY 03/03/20 03/03/20 History Allergies Allergy/AdvReac Type Severity Reaction Status Date / Time amoxicillin Allergy Rash/Hives Verified 03/03/20 14:08 Penicillins Allergy Rash/Hives Verified 03/03/20 14:08 Physical Exam Vitals: Vital Signs Temp Pulse Resp BP Pulse Ox 03/07/20 05:00 97.9 F 73 20 104/52 97 03/06/20 21:00 98.3 F 65 18 103/64 98 03/06/20 20:00 65 92/56 03/06/20 11:18 98.7 F 60 16 93/57 100 Intake and Output 03/06/20 03/07/20 03/07/20 22:59 06:59 14:59 Intake Total 1200 Balance 1200 Intake: Intake, IV Titration 1200 Amount Sodium Chloride 0.9% 1, 1200 000 ml @ 100 mls/hr IV . Q10H [facility] Rx#:[id number] Other: Voiding Method Urinal Urinal # Voids 1 # Bowel Movements 1 Results - Lab Results Most recent lab results Calcium 8.2 mg/dL (8.7-10.3) L 03/07/20 05:06 Magnesium 2.0 mg/dL (1.5-2.4) 03/07/20 05:06 03/06/20 05:06 03/07/20 05:06 Assessment and Plan Plan: Assessment: 1. Acute kidney injury secondary to ATN secondary to hypotension and diuresis. Baseline creatinine 1 and is up to 2.4 today. No evidence of urinary retention. No hydronephrosis noted on kidney ultrasound. 2. Status post fall. No evidence of fracture. 3. Benign hypertension. Blood pressure now on the lower side. Plan: Maintain IV fluids. Hold Lasix. Hold antihypertensives for systolic blood pressure less than 120. Check morning cortisol level. Check urinalysis. Monitor bladder scans to make sure no urinary retention. Repeat electrolytes in the morning. Thank you for the consultation. I will continue to follow the patient with you during his hospital stay.
--- NOTE | 2020-03-07 11:52 | P.PN ---
Subjective Progress Note Date: 03/07/20 Te Brady, is a 74-year-old male who presented to [facility] emergency room after sustaining a fall at home while getting out of the shower and having difficulty standing up and walking, called EMS and patient was brought in to [facility] emergency room, he was having significant pain in the left hip area, x-ray of the left hip and computed tomography scan of the left hip did not reveal any evidence of acute fracture, however patient was unable to stand and walk, he was admitted to medical floor orthopedic surgery consultation was requested. Patient states that 3 days prior to this presentation, patient had a similar incidents when he fell while trying to get out of bed, he was and able to stand or walk EMS were called and patient was brought in to emergency room he was here for several hours prior to being discharged home. Patient has a known history of stroke with expressive aphasia, which makes obtaining history and review of systems from him extremely difficult, was answering most of the questions. He also has a known history of diabetes mellitus type 2 history of hypertension history of hyperlipidemia history of peripheral neuropathy history of morbid obesity and history of osteoarthritis. At this time patient is complaining of pain in the left hip and difficulty standing up otherwise he denies any complaints. There is no fever or chills no headache or dizziness no chest pain no shortness of breath no cough no nausea or vomiting no abdominal pain no diarrhea no blood in the stools no burning with urination no frequency or urgency and no hematuria. On 03/05/2020 patient was seen and examined on the medical floor he is alert and oriented 3 in no apparent distress, he is still complaining of left hip pain and complaining of difficulty standing up and walking otherwise he denies any complaints there is no fever or chills no headache or dizziness no chest pain no shortness of breath no cough no nausea or vomiting no abdominal pain no diarrhea no blood in the stools no burning with urination no frequency or urgency no hematuria. On 03/06/2020 patient was seen and examined on the medical floor he is alert, confused in no apparent distress, he is still complaining of left hip pain and difficulty standing BUN and creatinine are up today and patient is having very low urine output, at this time kidney ultrasound was ordered patient was started on IV fluid normal saline at 100 mL an hour and nephrology consultation was requested, otherwise there is no complaints there is no fever or chills no headache or dizziness no chest pain no shortness of breath no cough no nausea or vomiting no abdominal pain no diarrhea and no urinary symptoms On 03/07/2020 patient is alert and oriented currently working with physical therapy. Patient having elevated creatinine 2.4 and bun 53. Nephrology services are following. Lasix currently on hold. Abdominal and bladder ultrasound negative. Patient denies chest pain or shortness breath. Patient denies nausea vomiting or diarrhea. Patient denies any urinary burning or frequency. Objective - Vital Signs Vital signs: Vital Signs Temp 98.1 F 03/07/20 11:07 Pulse 68 03/07/20 11:07 Resp 20 03/07/20 11:07 BP 104/58 03/07/20 11:07 Pulse Ox 95 03/07/20 11:07 Intake & Output 03/06/20 03/07/20 03/07/20 18:59 06:59 18:59 Intake Total 1200 Balance 1200 Intake: Intake, IV Titration 1200 Amount Sodium Chloride 0.9% 1, 1200 000 ml @ 100 mls/hr IV . Q10H [facility] Rx#:[id number] Other: Voiding Method Urinal Urinal Urinal # Voids 0 1 # Bowel Movements 0 1 - Exam In general patient is alert and oriented 3 in no distress HEENT head normocephalic and atraumatic Neck is supple no JVD no goiter no lymphadenopathy Chest exam reveals a few scattered rhonchi no wheezing Cardiac exam reveals regular heart sounds no murmurs Abdomen is soft nontender no organomegaly with normal bowel sounds, there is erythema and multiple ulceration in the lower abdominal fold Extremity exam reveals no edema no cyanosis or clubbing there is a scabbed ulcer on the right pretibial area - Labs CBC & Chem 7: 03/06/20 05:06 03/07/20 05:06 Labs: Abnormal Lab Results - Last 24 Hours (Table) 03/07/20 03/07/20 Range/Units 05:06 05:06 PT 25.4 H (9.9-11.9) sec INR 2.46 H (0.90-1.11) BUN 53.0 H (9.0-27.0) mg/dL Creatinine 2.4 H (0.6-1.5) mg/dL Est GFR (CKD-EPI)AfAm 30.1 L (60.0-200.0) Est GFR (CKD-EPI)NonAf 26.0 L (60.0-200.0) BUN/Creatinine Ratio 22.08 H (12.00-20.00) Ratio Glucose 112 H (70-110) mg/dL Calcium 8.2 L (8.7-10.3) mg/dL Assessment and Plan Assessment: 1. Fall with difficulty standing and walking, with pain in the left hip no evidence of fracture orthopedic surgery consultation requested. Patient was evaluated by orthopedic services. X-rays have been ordered. PT OT workup weightbearing as tolerated. 2. Physical debility physical therapy and occupational therapy requested patient may need rehab admission 3. Underlying history of insulin-dependent diabetes mellitus 4. Underlying history of hypertension 5. Underlying history of hyperlipidemia 6. Previous history of stroke with suppressive aphasia 7. Underlying history of morbid obesity 8. Acute kidney injury. Creatinine increasing to 2.4. ultrasound negative. Lasix on hold. Normal saline at 100. Nephrology services are following 9. Nonhealing ulcer of right lower leg and breakdown of skin in abdominal fold Wound care team consulted. DVT prophylaxis Coumadin. GI prophylaxis Protonix At this time orthopedic surgery consultation requested Physical therapy and occupational therapy consult Will follow closely patient may need rehabilitation admission after this acute admission Prognosis is guarded, will follow closely I performed an examination of the patient and discussed their management with the Nurse Practitioner. I have reviewed the Nurse Practitioner's notes and agree with the documented findings and plan of care
[2020-03-07 13:45] LABS: Amorphous Sediment,Urine Rare /hpf; Appearance,Urine Cloudy (Clear); Bacteria,Urine Rare /hpf; Bilirubin,Urine Negative (Negative); Blood,Urine Moderate (Negative); Color,Urine Yellow; Glucose,Urine (UA) Negative (Negative); Hyaline Casts,Urine 22 /lpf (0-2); Ketones,Urine Negative (Negative); Leukocyte Esterase,Urine Small (Negative); Mucus,Urine Rare /hpf; Nitrite,Urine Negative (Negative); Protein,Urine Trace (Negative); RBC,Urine 103 /hpf (0-5); Specific Gravity,Urine 1.018 (1.001-1.035); Squamous Epithelial Cell,Urine 1 /hpf (0-4); Urobilinogen,Urine <2.0 mg/dL (<2.0); WBC,Urine 7 /hpf (0-5)
[2020-03-07] MEDS: SODIUM CHLORIDE 0.9% 1,000 ML IV SCH (17:34)
[2020-03-07] MEDS ORDERED: WARFARIN 7.5 MG TAB PO ONE (18:00)
[2020-03-07] MEDS: ATORVASTATIN 10 MG TAB PO SCH (20:44)
[2020-03-08] MEDS: SODIUM CHLORIDE 0.9% 1,000 ML IV SCH ×2 (02:51→12:30)
[2020-03-08] MEDS: ACETAMINOPHEN TAB 325 MG TAB PO PRN (02:54)
[2020-03-08 04:39] LABS: Basophils % (A) 1 %; Eosinophils # (A) 0.2 k/uL (0-0.7); Eosinophils % (A) 2 %; HGB 10.4 gm/dL (13.0-17.5); Lymphocytes # (A) 0.7 k/uL (1.0-4.8); Lymphocytes % (A) 8 %; MCH 32.5 pg (25.0-35.0); MCHC 31.6 g/dL (31.0-37.0); MCV 102.9 fL (80.0-100.0); Macrocytosis Slight; Mean Platelet Volume 7.2; Monocytes # (A) 0.6 k/uL (0-1.0); Monocytes % (A) 7 %; Neutrophils # (A) 7.3 k/uL (1.3-7.7); Neutrophils % (A) 82 %; Platelet Count 208 k/uL (150-450); RBC 3.21 m/uL (4.30-5.90); RDW 14.8 % (11.5-15.5); WBC 8.9 k/uL (3.8-10.6)
[2020-03-08] MEDS: SYMBICORT 160-4.5 MCG INHALER INHALATION SCH ×2 (07:56→19:30)
[2020-03-08 08:59] LABS: INR 2.5 (0.90-1.11); Prothrombin Time 25.8 sec (9.9-11.9)
[2020-03-08 09:32] LABS: African American GFR (CKD) 53.1 (60.0-200.0); Anion Gap 5.5 mmol/L (4.00-12.00); Carbon Dioxide 26.5 mmol/L (21.6-31.8); Magnesium 2.1 mg/dL (1.5-2.4); Non-African American GFR(CKD) 45.9 (60.0-200.0); Potassium 5.1 mmol/L (3.5-5.5)
[2020-03-08] MEDS: FERROUS SULFATE 325 MG TAB PO SCH (09:50)
[2020-03-08] MEDS: DONEPEZIL 10 MG TAB PO SCH (09:50)
[2020-03-08] MEDS: MEMANTINE 10 MG TAB PO SCH ×2 (09:50→22:22)
[2020-03-08] MEDS: MAGNESIUM OXIDE 400 MG TAB PO SCH (09:50)
[2020-03-08] MEDS: METOPROLOL SUCCINATE (ER) 50 MG TAB.ER.24H PO SCH (09:50)
[2020-03-08] MEDS: CHOLECALCIFEROL 1,000 UNIT TAB PO SCH (09:50)
[2020-03-08] MEDS: PANTOPRAZOLE 40 MG TABLET PO SCH (09:50)
[2020-03-08] MEDS: CLOTRIMAZOLE/BETAMETH 1-0.05% CREAM 45 GM TUBE TOPICAL SCH ×2 (09:50→21:14)
--- NOTE | 2020-03-08 10:03 | P.PN ---
Subjective Patient is seen in follow-up for acute kidney injury. Renal function improving. Nonoliguric. No vomiting or diarrhea. Oral intake gradually improving. Blood pressures stable. Vital signs are stable. General: The patient appeared well nourished and normally developed. HEENT: Head exam is unremarkable. Neck is without jugular venous distension. LUNGS: Lungs are clear to auscultation and percussion. Breath sounds decreased. HEART: Rate and Rhythm are regular. ABDOMEN: Soft, nontender. Obese. EXTREMITITES: No edema. Objective - Vital Signs Vital signs: Vital Signs Temp 98.8 F 03/08/20 05:00 Pulse 77 03/08/20 05:00 Resp 20 03/08/20 05:00 BP 109/63 03/08/20 05:00 Pulse Ox 92 L 03/08/20 05:00 Intake & Output 03/07/20 03/08/20 03/08/20 18:59 06:59 18:59 Intake Total 800 300 Output Total 450 401 Balance 350 -101 Weight 161.7 kg Intake: Intake, IV Titration 800 300 Amount Sodium Chloride 0.9% 1, 800 300 000 ml @ 100 mls/hr IV . Q10H [facility] Rx#:[id number] Output: Urine 450 400 Coude 400 Stool 1 Other: Voiding Method Urinal Indwelling Catheter # Voids 0 # Bowel Movements 0 - Labs CBC & Chem 7: 03/08/20 03:22 03/08/20 03:22 Labs: Abnormal Lab Results - Last 24 Hours (Table) 03/07/20 03/08/20 03/08/20 Range/Units 13:30 03:22 03:22 RBC (4.30-5.90) m/uL Hgb (13.0-17.5) gm/dL Hct (39.0-53.0) % MCV (80.0-100.0) fL Lymphocytes # (1.0-4.8) k/uL PT 25.8 H (9.9-11.9) sec INR 2.50 H (0.90-1.11) BUN 54.0 H (9.0-27.0) mg/dL Est GFR (CKD-EPI)AfAm 53.1 L (60.0-200.0) Est GFR (CKD-EPI)NonAf 45.9 L (60.0-200.0) BUN/Creatinine Ratio 36.00 H (12.00-20.00) Ratio Glucose 112 H (70-110) mg/dL Calcium 8.0 L (8.7-10.3) mg/dL Urine Protein Trace H (Negative) Urine Blood Moderate H (Negative) Ur Leukocyte Esterase Small H (Negative) Urine RBC 103 H (0-5) /hpf Urine WBC 7 H (0-5) /hpf Amorphous Sediment Rare H (None) /hpf Urine Bacteria Rare H (None) /hpf Hyaline Casts 22 H (0-2) /lpf Urine Mucus Rare H (None) /hpf 03/08/20 Range/Units 03:22 RBC 3.21 L (4.30-5.90) m/uL Hgb 10.4 L (13.0-17.5) gm/dL Hct 33.0 L (39.0-53.0) % MCV 102.9 H (80.0-100.0) fL Lymphocytes # 0.7 L (1.0-4.8) k/uL PT (9.9-11.9) sec INR (0.90-1.11) BUN (9.0-27.0) mg/dL Est GFR (CKD-EPI)AfAm (60.0-200.0) Est GFR (CKD-EPI)NonAf (60.0-200.0) BUN/Creatinine Ratio (12.00-20.00) Ratio Glucose (70-110) mg/dL Calcium (8.7-10.3) mg/dL Urine Protein (Negative) Urine Blood (Negative) Ur Leukocyte Esterase (Negative) Urine RBC (0-5) /hpf Urine WBC (0-5) /hpf Amorphous Sediment (None) /hpf Urine Bacteria (None) /hpf Hyaline Casts (0-2) /lpf Urine Mucus (None) /hpf Assessment and Plan Plan: Assessment: 1. Acute kidney injury secondary to ATN secondary to hypotension and diuresis. Baseline creatinine 1 and peaked at 2.4 this admission - 1.5 today. No evidence of urinary retention. No hydronephrosis noted on kidney ultrasound.trace proteinuria on UA. 2. Status post fall. No evidence of fracture. 3. Benign hypertension. Blood pressure stable. Plan: Decrease normal saline to 50 mL an hour. Hold Lasix. Hold antihypertensives for systolic blood pressure less than 120. Maintain Clinton catheter for now. Encouraged oral intake.
[2020-03-08 11:26] VITALS: BMI 47.0
--- NOTE | 2020-03-08 12:22 | CDI ---
Documentation Clarification Form Date: 03/08/2020 12:00:57 PM From: Carly Ca CCS, CCDS Admit Date: 03/08/2020 10:02:00 AM Patient Name: Te Brady Visit Number: [id number] Discharge Date: ATTENTION: The Clinical Documentation Specialists (CDI) and [facility] Coding Staff appreciate your assistance in clarifying documentation. Please respond to the clarification below the line at the bottom and electronically sign. The CDI & [facility] Coding staff will review the response and follow-up if needed. Please note: Queries are made part of the Legal Health Record. If you have any questions, please contact the author of this message via ITS. Dr. Gina Velasco: Heart Failure without further specificity in the patient's past medical history. Per the 03/04 Orthopedic Consult: "Palpable distal pulses although faint 3+ pitting edema." Per the 03/07 Nephrology Consult: "Acute kidney injury secondary to ATN secondary to hypotension and diuresis." History/Risk Factors: Atrial Fibrillation, Heart Failure, COPD, Dementia, Hypertension, Myocardial Infarction, Osteoarthritis, Sleep Apnea, uses CPAP; Bilateral leg venous stasis, Exposure to agent orange, MRSA. Heart valve, Left knee replacement. Permanent Pacemaker. Clinical Indicators: Patient presented to the ED on 03/03 after falling in the shower at home complaining of left hip pain. Diagnosed with a left hip contusion, no fracture, Bradycardic. On 03/08, found to be in ANNETTA with ATN. VS 03/03: T 98.2, P 86 - 59 (irregular), R 18, BP 127/67, PO 98 RA. VS 03/04: P 59 (irregular), PO 96 2Lnc. VS 03/05: P 60, BP 85/52, PO 96 2Lnc VS 03/08: PO 92 RA LAB 03/03: Na 135*, K 5.2^, BUN 40^, Glucose 120^, Total bili 2.2^. LAB 03/08: BUN 54.0^, Cr 1.5, GFR 45.9*, Glucose 112^, Calcium 8.0*. BNP: Not done Echocardiogram Results (most recent) 04/20/2017: Mild LVH, Left ventricular systolic function low-normal w/EF 50-55%, Right ventricle severely enlarged, Mild MR, Mild TR, No pulmonary hypertension. Chest X Ray 03/03: Cardiomegaly with basilar atelectasis favored over infiltrate. Correlate for underlying COPD. Home meds: Lasix 40 mg po BID, Coumadin, Aldactone, Toprol, Namenda, Mag-Ox, INH Symbicort, INH Albuterol. Treatment 03/03: IV fluid 1000 mls @ 50 mls/hr, INH Albuterol, Lasix not given. 03/04: INH Symbicort, In your professional opinion, can you please clarify the acuity and type of CHF if known? Heart Failure ruled out Systolic Heart Failure: o Acute o Chronic o Acute on Chronic Diastolic Heart Failure: o Acute o Chronic o Acute on Chronic Systolic & Diastolic Heart Failure: o Acute o Chronic o Acute on Chronic Heart Failure Unable to Determine Other, please specify (Last Revision: August 2017) Chronic diastolic congestive heart failure MTDD
--- NOTE | 2020-03-08 17:05 | P.PN ---
Subjective Progress Note Date: 03/08/20 Te Brady, is a 74-year-old male who presented to [facility] emergency room after sustaining a fall at home while getting out of the shower and having difficulty standing up and walking, called EMS and patient was brought in to [facility] emergency room, he was having significant pain in the left hip area, x-ray of the left hip and computed tomography scan of the left hip did not reveal any evidence of acute fracture, however patient was unable to stand and walk, he was admitted to medical floor orthopedic surgery consultation was requested. Patient states that 3 days prior to this presentation, patient had a similar incidents when he fell while trying to get out of bed, he was and able to stand or walk EMS were called and patient was brought in to emergency room he was here for several hours prior to being discharged home. Patient has a known history of stroke with expressive aphasia, which makes obtaining history and review of systems from him extremely difficult, was answering most of the questions. He also has a known history of diabetes mellitus type 2 history of hypertension history of hyperlipidemia history of peripheral neuropathy history of morbid obesity and history of osteoarthritis. At this time patient is complaining of pain in the left hip and difficulty standing up otherwise he denies any complaints. There is no fever or chills no headache or dizziness no chest pain no shortness of breath no cough no nausea or vomiting no abdominal pain no diarrhea no blood in the stools no burning with urination no frequency or urgency and no hematuria. On 03/05/2020 patient was seen and examined on the medical floor he is alert and oriented 3 in no apparent distress, he is still complaining of left hip pain and complaining of difficulty standing up and walking otherwise he denies any complaints there is no fever or chills no headache or dizziness no chest pain no shortness of breath no cough no nausea or vomiting no abdominal pain no diarrhea no blood in the stools no burning with urination no frequency or urgency no hematuria. On 03/06/2020 patient was seen and examined on the medical floor he is alert, confused in no apparent distress, he is still complaining of left hip pain and difficulty standing BUN and creatinine are up today and patient is having very low urine output, at this time kidney ultrasound was ordered patient was started on IV fluid normal saline at 100 mL an hour and nephrology consultation was requested, otherwise there is no complaints there is no fever or chills no headache or dizziness no chest pain no shortness of breath no cough no nausea or vomiting no abdominal pain no diarrhea and no urinary symptoms. On 03/07/2020 patient is alert and oriented currently working with physical therapy. Patient having elevated creatinine 2.4 and bun 53. Nephrology services are following. Lasix currently on hold. Abdominal and bladder ultrasound negative. Patient denies chest pain or shortness breath. Patient denies nausea vomiting or diarrhea. Patient denies any urinary burning or frequency. On 03/08/2020 patient was seen and examined on the medical floor he is alert slightly confused in no apparent distress he is still complaining of pain in the left hip with difficulty standing and walking, otherwise he denies any complaints patient has a Clinton catheter in which is draining dark urine, kidney function improving with creatinine down to 1.5 patient has history of bladder cancer Will add urology consult will follow in a.m. Objective - Vital Signs Vital signs: Vital Signs Temp 98.2 F 03/08/20 12:27 Pulse 76 03/08/20 12:27 Resp 18 03/08/20 12:27 BP 126/76 03/08/20 12:27 Pulse Ox 93 L 03/08/20 12:27 Intake & Output 03/07/20 03/08/20 03/08/20 18:59 06:59 18:59 Intake Total 800 300 Output Total 450 401 Balance 350 -101 Weight 161.7 kg 161.7 kg Intake: Intake, IV Titration 800 300 Amount Sodium Chloride 0.9% 1, 800 300 000 ml @ 50 mls/hr IV . Q20H [facility] Rx#:[id number] Output: Urine 450 400 Coude 400 Stool 1 Other: Voiding Method Urinal Indwelling Catheter Indwelling Catheter # Voids 0 # Bowel Movements 0 1 - Exam In general patient is alert and oriented 3 in no distress HEENT head normocephalic and atraumatic Neck is supple no JVD no goiter no lymphadenopathy Chest exam reveals a few scattered rhonchi no wheezing Cardiac exam reveals regular heart sounds no murmurs Abdomen is soft nontender no organomegaly with normal bowel sounds, there is erythema and multiple ulceration in the lower abdominal fold Extremity exam reveals no edema no cyanosis or clubbing there is a scabbed ulcer on the right pretibial area - Labs CBC & Chem 7: 03/08/20 03:22 03/08/20 03:22 Labs: Abnormal Lab Results - Last 24 Hours (Table) 03/08/20 03/08/20 03/08/20 Range/Units 03:22 03:22 03:22 RBC 3.21 L (4.30-5.90) m/uL Hgb 10.4 L (13.0-17.5) gm/dL Hct 33.0 L (39.0-53.0) % MCV 102.9 H (80.0-100.0) fL Lymphocytes # 0.7 L (1.0-4.8) k/uL PT 25.8 H (9.9-11.9) sec INR 2.50 H (0.90-1.11) BUN 54.0 H (9.0-27.0) mg/dL Est GFR (CKD-EPI)AfAm 53.1 L (60.0-200.0) Est GFR (CKD-EPI)NonAf 45.9 L (60.0-200.0) BUN/Creatinine Ratio 36.00 H (12.00-20.00) Ratio Glucose 112 H (70-110) mg/dL Calcium 8.0 L (8.7-10.3) mg/dL Assessment and Plan Plan: 1. Fall with difficulty standing and walking, with pain in the left hip no evidence of fracture orthopedic surgery consultation requested 2. Physical debility physical therapy and occupational therapy requested patient may need rehab admission 3. Underlying history of insulin-dependent diabetes mellitus 4. Underlying history of hypertension 5. Underlying history of hyperlipidemia 6. Previous history of stroke with suppressive aphasia 7. Underlying history of morbid obesity 8. Elevated BUN and creatinine, which increased significantly since yesterday, will check urine ultrasound, start IV fluid normal saline at 100 mL an hour, consult nephrology, check CPK to rule out rhabdomyolysis At this time orthopedic surgery consultation requested Physical therapy and occupational therapy consult Will follow closely patient may need rehabilitation admission after this acute admission For DVT prophylaxis will give subcu Lovenox for GI prophylaxis will give omeprazole Prognosis is guarded, will follow closely
[2020-03-08] MEDS ORDERED: WARFARIN 7.5 MG TAB PO ONE (18:00)
--- NOTE | 2020-03-08 18:23 | P.GSCN ---
History of Present Illness Consult date: 03/08/20 Reason for Consult: Urinary retention History of present illness: Te Brady, is a 74-year-old male admitted to the hospital with a fall at home, following his fall he was having significant pain in the left hip area, x-ray of the left hip and computed tomography scan of the left hip did not reveal any evidence of acute fracture, during his hospital admission he developed urinary retention. Of note he follows up with Dr. Limon for management of bladder cancer. He indicated he's had developed retention before requiring Clinton placement. He does complain of obstructive urinary symptoms. Denies any flank or gross hematuria. He had a renal bladder ultrasound during this admission which was within normal limits. Of note when a Clinton was placed there was return of 200 mL of clear urine, but the patient was complaining of significant abdominal pressure thus Clinton was placed Review of Systems - Constitutional Denies fever, Denies weight loss - EENT Ears, nose, mouth and throat: Denies dysphagia - Cardiovascular Denies chest pain, Denies shortness of breath - Respiratory Denies cough, Denies 7 - Gastrointestinal Reports as per HPI - Genitourinary Reports urinary hesitancy, Reports urinary retention, Denies flank pain, Denies hematuria - Neurological Reports lack of coordination, Reports motor disturbance Past Medical History Past Medical History: Atrial Fibrillation, Heart Failure, COPD, Dementia, Hypertension, Myocardial Infarction (AL), Osteoarthritis (OA), Sleep Apnea/CPAP/BIPAP Additional Past Medical History / Comment(s): uses cpap, abdominal hernia, lupe leg venous stasis. exposure agent orange, high ammonia Last Myocardial Infarction Date:: unsure History of Any Multi-Drug Resistant Organisms: MRSA Year Discovered:: 12/10/18 MDRO Source:: Urine Past Surgical History: Cholecystectomy, Hernia Repair, Joint Replacement, Pacemaker Additional Past Surgical History / Comment(s): heart valve replacement, Bilat cataract surgery, left knee replacement. hernia surgery Past Anesthesia/Blood Transfusion Reactions: No Reported Reaction Type of Cardiac Device: Permanent Pacemaker Device Placement Date:: 2016 Past Psychological History: Anxiety Additional Psychological History / Comment(s): dementia Smoking Status: Never smoker Past Alcohol Use History: None Reported Additional Past Alcohol Use History / Comment(s): starting smoking age 21, 2ppd quit 2009 Past Drug Use History: None Reported - Past Family History Mother Family Medical History: Cancer Additional Family Medical History / Comment(s): breast cancer Sister(s) Family Medical History: Cancer, Myocardial Infarction (AL) Father Family Medical History: Myocardial Infarction (AL) Medications and Allergies Home Medications Medication Instructions Recorded Confirmed Type Cholecalciferol [Vitamin D3 (25 2,000 unit PO DAILY 04/19/17 03/03/20 History Mcg = 1000 Iu)] Clotrimazole/Betamethasone Dip 1 applic TOPICAL BID 04/19/17 03/03/20 History [Lotrisone Cream] Donepezil [Aricept] 10 mg PO DAILY 04/19/17 03/03/20 History Ferrous Sulfate [Iron (65 MG 325 mg PO DAILY 04/19/17 03/03/20 History Elemental)] Magnesium Oxide [Mag-Ox] 500 mg PO DAILY 04/19/17 03/03/20 History Memantine HCl [Namenda Xr] 28 mg PO DAILY@1200 04/19/17 03/03/20 History Spironolactone [Aldactone] 25 mg PO BID 04/19/17 03/03/20 History Warfarin [Coumadin] 10 mg PO [id number] 04/19/17 03/03/20 History Enalapril [Vasotec] 2.5 mg PO BID #60 tablet 04/20/17 03/03/20 Rx Metoprolol Succinate (ER) [Toprol 50 mg PO DAILY #30 tab.er.24h 04/20/17 03/03/20 Rx XL] Albuterol Sulfate [Proventil Hfa] 1 - 2 puff INHALATION RT-Q4H PRN 11/10/18 03/03/20 History Atorvastatin Calcium [Lipitor] 10 mg PO HS 11/10/18 03/03/20 History Budesonide/Formoterol Fumarate 2 puff INHALATION RT-BID 11/10/18 03/03/20 History [Symbicort 160-4.5 Mcg Inhaler] Furosemide [Lasix] 40 mg PO BID 11/10/18 03/03/20 History Warfarin Sodium 5 mg PO LACY 03/03/20 03/03/20 History Allergies Allergy/AdvReac Type Severity Reaction Status Date / Time amoxicillin Allergy Rash/Hives Verified 03/03/20 14:08 Penicillins Allergy Rash/Hives Verified 03/03/20 14:08 Surgical - Exam Vital Signs Temp Pulse Resp BP Pulse Ox 98.2 F 80 18 127/67 98 03/03/20 12:14 03/03/20 12:14 03/03/20 12:14 03/03/20 12:14 03/03/20 12:14 - General well developed, well nourished, no distress, no pain - Eyes PERRL, normal ocular movement - ENT normal nares, normal mucosa - Respiratory normal expansion, normal respiratory effort - Abdomen Abdomen: soft, non tender - Genitourinary Clinton draining cranially urine - Psychiatric oriented to time, oriented to person, oriented to place Results - Labs 03/08/20 03:22 03/08/20 03:22 Abnormal Lab Results - Last 24 Hours (Table) 03/08/20 03/08/20 03/08/20 Range/Units 03:22 03:22 03:22 RBC 3.21 L (4.30-5.90) m/uL Hgb 10.4 L (13.0-17.5) gm/dL Hct 33.0 L (39.0-53.0) % MCV 102.9 H (80.0-100.0) fL Lymphocytes # 0.7 L (1.0-4.8) k/uL PT 25.8 H (9.9-11.9) sec INR 2.50 H (0.90-1.11) BUN 54.0 H (9.0-27.0) mg/dL Est GFR (CKD-EPI)AfAm 53.1 L (60.0-200.0) Est GFR (CKD-EPI)NonAf 45.9 L (60.0-200.0) BUN/Creatinine Ratio 36.00 H (12.00-20.00) Ratio Glucose 112 H (70-110) mg/dL Calcium 8.0 L (8.7-10.3) mg/dL Diabetes panel 03/08/20 Range/Units 03:22 Sodium 139 (135-145) mmol/L Potassium 5.1 (3.5-5.5) mmol/L Chloride 107 (96-109) mmol/L Carbon Dioxide 26.5 (21.6-31.8) mmol/L BUN 54.0 H (9.0-27.0) mg/dL Creatinine 1.5 (0.6-1.5) mg/dL Glucose 112 H (70-110) mg/dL Calcium 8.0 L (8.7-10.3) mg/dL Calcium panel 03/08/20 Range/Units 03:22 Calcium 8.0 L (8.7-10.3) mg/dL Pituitary panel 03/08/20 Range/Units 03:22 Sodium 139 (135-145) mmol/L Potassium 5.1 (3.5-5.5) mmol/L Chloride 107 (96-109) mmol/L Carbon Dioxide 26.5 (21.6-31.8) mmol/L BUN 54.0 H (9.0-27.0) mg/dL Creatinine 1.5 (0.6-1.5) mg/dL Glucose 112 H (70-110) mg/dL Calcium 8.0 L (8.7-10.3) mg/dL Adrenal panel 03/08/20 Range/Units 03:22 Sodium 139 (135-145) mmol/L Potassium 5.1 (3.5-5.5) mmol/L Chloride 107 (96-109) mmol/L Carbon Dioxide 26.5 (21.6-31.8) mmol/L BUN 54.0 H (9.0-27.0) mg/dL Creatinine 1.5 (0.6-1.5) mg/dL Glucose 112 H (70-110) mg/dL Calcium 8.0 L (8.7-10.3) mg/dL Assessment and Plan Assessment: 74-year-old male with history of bladder cancer, follows up with Dr. Limon for management of that. Patient admitted with a fall and left hip pain. Urology is consultative for urinary retention of 200 mL, the patient was symptomatic from his bladder distention Plan: -Start on Flomax -Follow up in [address] Limon for trial of void
[2020-03-08] MEDS ORDERED: TAMSULOSIN 0.4 MG CAP.ER.24H PO SCH (21:00)
[2020-03-08] MEDS: ATORVASTATIN 10 MG TAB PO SCH (21:14)
[2020-03-09 08:25] LABS: Basophils # (A) 0.1 k/uL (0-0.2); Basophils % (A) 1 %; Eosinophils # (A) 0.2 k/uL (0-0.7); Eosinophils % (A) 2 %; HCT 34.5 % (39.0-53.0); HGB 11.4 gm/dL (13.0-17.5); Lymphocytes # (A) 0.7 k/uL (1.0-4.8); Lymphocytes % (A) 9 %; MCHC 33.2 g/dL (31.0-37.0); MCV 102.6 fL (80.0-100.0); Macrocytosis Slight; Monocytes # (A) 0.6 k/uL (0-1.0); Monocytes % (A) 7 %; Neutrophils # (A) 6.4 k/uL (1.3-7.7); Neutrophils % (A) 79 %; Platelet Count 183 k/uL (150-450); RBC 3.36 m/uL (4.30-5.90); RDW 14.4 % (11.5-15.5)
[2020-03-09] MEDS: SYMBICORT 160-4.5 MCG INHALER INHALATION SCH (08:48)
[2020-03-09] MEDS: FERROUS SULFATE 325 MG TAB PO SCH (09:16)
[2020-03-09] MEDS: PANTOPRAZOLE 40 MG TABLET PO SCH (09:17)
[2020-03-09] MEDS: MAGNESIUM OXIDE 400 MG TAB PO SCH (09:17)
[2020-03-09] MEDS: DONEPEZIL 10 MG TAB PO SCH (09:17)
[2020-03-09] MEDS: MEMANTINE 10 MG TAB PO SCH (09:17)
[2020-03-09] MEDS: METOPROLOL SUCCINATE (ER) 50 MG TAB.ER.24H PO SCH (09:17)
[2020-03-09] MEDS: CHOLECALCIFEROL 1,000 UNIT TAB PO SCH (09:17)
[2020-03-09] MEDS: CLOTRIMAZOLE/BETAMETH 1-0.05% CREAM 45 GM TUBE TOPICAL SCH (09:18)
[2020-03-09] MEDS: SODIUM CHLORIDE 0.9% 1,000 ML IV SCH (09:18)
--- NOTE | 2020-03-09 09:50 | P.PN ---
Subjective Patient is seen in follow-up for acute kidney injury. Renal function improving - creatinine 1.5 as of yesterday. Nonoliguric. No vomiting or diarrhea. Oral intake gradually improving. Blood pressures stable. Vital signs are stable. General: The patient appeared well nourished and normally developed. HEENT: Head exam is unremarkable. Neck is without jugular venous distension. LUNGS: Lungs are clear to auscultation and percussion. Breath sounds decreased. HEART: Rate and Rhythm are regular. ABDOMEN: Soft, nontender. Obese. EXTREMITITES: No edema. Objective - Vital Signs Vital signs: Vital Signs Temp 98.5 F 03/09/20 05:00 Pulse 80 03/09/20 05:00 Resp 16 03/09/20 05:00 BP 112/67 03/09/20 05:00 Pulse Ox 92 L 03/09/20 05:00 Intake & Output 03/08/20 03/09/20 03/09/20 18:59 06:59 18:59 Intake Total 840 Output Total 1402 Balance -562 Weight 161.7 kg 157.538 kg Intake: Intake, IV Titration 150 Amount Sodium Chloride 0.9% 1, 150 000 ml @ 50 mls/hr IV . Q20H [facility] Rx#:[id number] Oral 690 Output: Urine 1400 Coude 1400 Stool 2 Other: Voiding Method Indwelling Catheter Indwelling Catheter # Voids 0 # Bowel Movements 1 0 - Labs CBC & Chem 7: 03/09/20 08:02 03/08/20 03:22 Labs: Abnormal Lab Results - Last 24 Hours (Table) 03/09/20 Range/Units 08:02 RBC 3.36 L (4.30-5.90) m/uL Hgb 11.4 L (13.0-17.5) gm/dL Hct 34.5 L (39.0-53.0) % MCV 102.6 H (80.0-100.0) fL Lymphocytes # 0.7 L (1.0-4.8) k/uL Assessment and Plan Plan: Assessment: 1. Acute kidney injury secondary to ATN secondary to hypotension and diuresis. Baseline creatinine 1 and peaked at 2.4 this admission - 1.5 as of yesterday. No evidence of urinary retention. No hydronephrosis noted on kidney ultrasound.trace proteinuria on UA. 2. Status post fall. No evidence of fracture. 3. Benign hypertension. Blood pressure stable. Plan: Hep-Lock IV fluids. Continue to hold diuretics. Hold antihypertensives for systolic blood pressure less than 120. Encouraged oral intake. Okay to DC Clinton catheter. Monitor serial bladder scans to make sure no urinary retention.
[2020-03-09 10:57] LABS: INR 3.02 (0.90-1.11)
[2020-03-09 11:19] LABS: African American GFR (CKD) 77.3 (60.0-200.0); Albumin 3.1 g/dL (3.80-4.90); Albumin/Globulin Ratio 1.48 (1.60-3.17); Anion Gap 5.7 mmol/L (4.00-12.00); BUN/Creat Ratio 45.45 Ratio (12.00-20.00); Calcium 8.4 mg/dL (8.7-10.3); Carbon Dioxide 23.3 mmol/L (21.6-31.8); Globulin 2.1 g/dL (1.6-3.3); Magnesium 2.3 mg/dL (1.5-2.4); Non-African American GFR(CKD) 66.7 (60.0-200.0); Potassium 5.3 mmol/L (3.5-5.5); Total Bilirubin 1.3 mg/dL (0.2-1.2); Total Protein 5.2 g/dL (6.2-8.2)
[2020-03-09 11:59] VITALS: BP 116/73; PULSE 73; RESP 18; TEMP 98.2
--- NOTE | 2020-03-09 14:32 | P.DS ---
Providers Date of admission: 03/08/20 10:02 Expected date of discharge: 03/09/20 Attending physician: Gina Velasco Consults: 03/03/20 14:12 Consult Physician Routine Consulting Provider: Yosef Motley Consult Reason/Comments: severe hip pain Do you want consulting provider notified?: Yes 03/06/20 16:17 Consult Physician Routine Consulting Provider: Erika Sanabria Consult Reason/Comments: elevated Cr Do you want consulting provider notified?: Yes 03/08/20 13:16 Consult Physician Routine Consulting Provider: Mitch Limon Consult Reason/Comments: urinary retention Do you want consulting provider notified?: Yes Primary care physician: Gina [facility] Course: Diagnosis on discharge: 1. Fall with difficulty standing and walking, with pain in the left hip no evidence of fracture orthopedic surgery consultation requested 2. Physical debility physical therapy and occupational therapy requested patient may need rehab admission 3. Underlying history of insulin-dependent diabetes mellitus 4. Underlying history of hypertension 5. Underlying history of hyperlipidemia 6. Previous history of stroke with suppressive aphasia 7. Underlying history of morbid obesity 8. Elevated BUN and creatinine, which increased significantly since yesterday, will check urine ultrasound, start IV fluid normal saline at 100 mL an hour, c onsult nephrology, check CPK to rule out rhabdomyolysis 9. Urinary retention patient had a Clinton catheter inserted he was seen by Dr. Sotomayor, Flomax 0.4 mg by mouth daily ordered keep Clinton catheter in follow-up with Dr. Botello in one week Hospital course: Te Brady, is a 74-year-old male who presented to [facility] emergency room after sustaining a fall at home while getting out of the shower and having difficulty standing up and walking, called EMS and patient was brought in to [facility] emergency room, he was having significant pain in the left hip area, x-ray of the left hip and computed tomography scan of the left hip did not reveal any evidence of acute fracture, however patient was unable to stand and walk, he was admitted to medical floor orthopedic surgery consultation was requested. Patient states that 3 days prior to this presentation, patient had a similar incidents when he fell while trying to get out of bed, he was and able to stand or walk EMS were called and patient was brought in to emergency room he was here for several hours prior to being discharged home. Patient has a known history of stroke with expressive aphasia, which makes obtaining history and review of systems from him extremely difficult, was answering most of the questions. He also has a known history of diabetes shannon litus type 2 history of hypertension history of hyperlipidemia history of peripheral neuropathy history of morbid obesity and history of osteoarthritis. At this time patient is complaining of pain in the left hip and difficulty standing up otherwise he denies any complaints. There is no fever or chills no headache or dizziness no chest pain no shortness of breath no cough no nausea or vomiting no abdominal pain no diarrhea no blood in the stools no burning with urination no frequency or urgency and no hematuria. On 03/05/2020 patient was seen and examined on the medical floor he is alert and oriented 3 in no apparent distress, he is still complaining of left hip pain and complaining of difficulty standing up and walking otherwise he denies any complaints there is no fever or chills no headache or dizziness no chest pain no shortness of breath no cough no nausea or vomiting no abdominal pain no diarrhea no blood in the stools no burning with urination no frequency or urgency no hematuria. On 03/06/2020 patient was seen and examined on the medical floor he is alert, confused in no apparent distress, he is still complaining of left hip pain and difficulty standing BUN and creatinine are up today and patient is having very low urine output, at this time kidney ultrasound was ordered patient was started on IV fluid normal saline at 100 mL an hour and nephrology consultation was requested, otherwise there is no complaints there is no fever or chills no headache or dizziness no chest pain no shortness of breath no cough no nausea or vomiting no abdominal pain no diarrhea and no urinary symptoms. On 03/07/2020 patient is alert and oriented currently working with physical therapy. Patient having elevated creatinine 2.4 and bun 53. Nephrology services are following. Lasix currently on hold. Abdominal and bladder ultrasound negative. Patient denies chest pain or shortness breath. Patient denies nausea vomiting or diarrhea. Patient denies any urinary burning or candie quency. On 03/08/2020 patient was seen and examined on the medical floor he is alert slightly confused in no apparent distress he is still complaining of pain in the left hip with difficulty standing and walking, otherwise he denies any complaints patient has a Clinton catheter in which is draining dark urine, kidney function improving with creatinine down to 1.5 patient has history of bladder ca ncer Will add urology consult will follow in a.m. On 03/09/2020 patient was seen and examined on the medical floor he is alert, slightly confused in no distress, he is still complaining of pain in his left hip and difficulty walking otherwise he denies any complaints there is no fever or chills no headache or dizziness no chest pain no shortness of breath no cough no nausea or vomiting no abdominal pain no diarrhea no blood in the stools no burning with urination no frequency or urgency and no hematuria, kidney function has normalized , patient was seen by urology Flomax was added to regimen, patient will be discharged to medical [facility] on today, he will be seen by Dr. Limon his urologist in 1 week Patient Condition at Discharge: Fair Plan - Discharge Summary Discharge Rx Participant: No New Discharge Prescriptions: New Tamsulosin [Flomax] 0.4 mg PO 2100 cap.er.24h Furosemide [Lasix] 40 mg PO DAILY 30 Days #30 tablet oxyCODONE-APAP 5-325MG [Percocet 5-325 mg] 1 each PO Q4HR PRN tab PRN Reason: Severe Pain Pantoprazole [Protonix] 40 mg PO DAILY tablet. Acetaminophen Tab [Tylenol] 650 mg PO Q6HR PRN tab PRN Reason: Mild Pain Or Fever > 100.5 Continue Cholecalciferol [Vitamin D3 (25 Mcg = 1000 Iu)] 2,000 unit PO DAILY Magnesium Oxide [Mag-Ox] 500 mg PO DAILY Ferrous Sulfate [Iron (65 MG Elemental)] 325 mg PO DAILY Donepezil [Aricept] 10 mg PO DAILY Warfarin [Coumadin] 10 mg PO MOTUWETHFRSA Memantine HCl [Namenda Xr] 28 mg PO DAILY@1200 Clotrimazole/Betamethasone Dip [Lotrisone Cream] 1 applic TOPICAL BID Metoprolol Succinate (ER) [Toprol XL] 50 mg PO DAILY #30 tab.er.24h Enalapril [Vasotec] 2.5 mg PO BID #60 tablet Albuterol Sulfate [Proventil Hfa] 1 - 2 puff INHALATION RT-Q4H PRN PRN Reason: Shortness Of Breath Budesonide/Formoterol Fumarate [Symbicort 160-4.5 Mcg Inhaler] 2 puff INHALATION RT-BID Atorvastatin Calcium [Lipitor] 10 mg PO HS Warfarin Sodium 5 mg PO LACY Discontinued Spironolactone [Aldactone] 25 mg PO BID Furosemide [Lasix] 40 mg PO BID Discharge Medication List Cholecalciferol [Vitamin D3 (25 Mcg = 1000 Iu)] 2,000 unit PO DAILY 04/19/17 [History] Clotrimazole/Betamethasone Dip [Lotrisone Cream] 1 applic TOPICAL BID 04/19/17 [History] Donepezil [Aricept] 10 mg PO DAILY 04/19/17 [History] Ferrous Sulfate [Iron (65 MG Elemental)] 325 mg PO DAILY 04/19/17 [History] Magnesium Oxide [Mag-Ox] 500 mg PO DAILY 04/19/17 [History] Memantine HCl [Namenda Xr] 28 mg PO DAILY@1200 04/19/17 [History] Warfarin [Coumadin] 10 mg PO MOTUWETHFRSA 04/19/17 [History] Enalapril [Vasotec] 2.5 mg PO BID #60 tablet 04/20/17 [Rx] Metoprolol Succinate (ER) [Toprol XL] 50 mg PO DAILY #30 tab.er.24h 04/20/17 [Rx] Albuterol Sulfate [Proventil Hfa] 1 - 2 puff INHALATION RT-Q4H PRN 11/10/18 [History] Atorvastatin Calcium [Lipitor] 10 mg PO HS 11/10/18 [History] Budesonide/Formoterol Fumarate [Symbicort 160-4.5 Mcg Inhaler] 2 puff INHALATION RT-BID 11/10/18 [History] Warfarin Sodium 5 mg PO LACY 03/03/20 [History] Acetaminophen Tab [Tylenol] 650 mg PO Q6HR PRN tab 03/09/20 [Rx] Furosemide [Lasix] 40 mg PO DAILY 30 Days #30 tablet 03/09/20 [Rx] Pantoprazole [Protonix] 40 mg PO DAILY brook. 03/09/20 [Rx] Tamsulosin [Flomax] 0.4 mg PO 2100 cap.er.24h 03/09/20 [Rx] oxyCODONE-APAP 5-325MG [Percocet 5-325 mg] 1 each PO Q4HR PRN tab 03/09/20 [Rx] Follow up Appointment(s)/Referral(s): Gina Velasco MD [Primary Care Provider] - 1-2 days Patient Instructions/Handouts: Heart Failure (GEN), Fall Prevention (ED)
[2020-03-09] MEDS ORDERED: WARFARIN 5 MG TAB PO ONE (18:00)
--- NOTE | 2020-03-12 14:00 | CDI ---
Documentation Clarification Form Date: 03/12/20 From: Jailene Tena Phone: If you have a question about this query, please contact Jackie Jara, Pathology Laboratory Director at [phone] between 8am and 5pm. Admit Date: 03/08/20 Discharge Date: 03/09/30 Patient Name: ANA LUIS Visit Number: [id number] ATTENTION: The Clinical Documentation Specialists (CDI) and [facility] Coding Staff appreciate your assistance in clarifying documentation. Please respond to the clarification below the line at the bottom and electronically sign. The CDI & [facility] Coding staff will review the response and follow-up if needed. Please note: Queries are made part of the Legal Health Record. If you have any questions, please contact the author of this message via ITS. Dear Dr. Mark Velasco, Atrial Fibrillation is documented in the past medical history of ED note, consults and H&P. History/Risk Factors: HTN w chronic diastolic CHF, DM-PVD, peripheral neuropathy, skin ulcer, demenia, morbid obesity w BMI 45.8, COPD, left OA of hip, left knee contusion, aphasia following stroke, repeated falls Clinical Indicators: Hx of atrial fibrillation EKG/telemetry: Ventricular rate 74, paced rhythm, QRS 148, QTc 463. Treatment: Warfarin 5 mg PO LACY, Warfin 10 mg PO MOTUWEDTHFRSA In your professional opinion, can you please clarify the type of Atrial Fibrillation, if known? Chronic Permanent Paroxysmal Persistent, longstanding Persistent, other Persistent, permanent Other, please specify Unable to determine Paroxysmal MTDD
== END 2020-03-09 18:38 | DRG 683 ==
LOC: EC 12:13 → 1SOBS 14:10 → 6NMEDSUR 03-04 08:41 → OBSVTOIN 03-08 10:02
PROVIDERS: ADMIT Internal Medicine; ATTEND Internal Medicine
PROC: 3E0234Z Introduction of Serum, Toxoid and Vaccine into Muscle, Percutaneous Approach (ICD-10-PCS; principal; 2020-03-04)
DX: N17.0 Acute kidney failure with tubular necrosis (principal); I50.32 Chronic diastolic (congestive) heart failure; L97.911 Non-pressure chronic ulcer of unspecified part of right lower leg limited to breakdown of skin; Z68.42 Body mass index [BMI] 45.0-49.9, adult; E11.42 Type 2 diabetes mellitus with diabetic polyneuropathy; E11.51 Type 2 diabetes mellitus with diabetic peripheral angiopathy without gangrene; E11.622 Type 2 diabetes mellitus with other skin ulcer; I95.9 Hypotension, unspecified; I11.0 Hypertensive heart disease with heart failure; F03.90 Unspecified dementia, unspecified severity, without behavioral disturbance, psychotic disturbance, mood disturbance, and anxiety; I48.0 Paroxysmal atrial fibrillation; E66.01 Morbid (severe) obesity due to excess calories; J44.9 Chronic obstructive pulmonary disease, unspecified; Z23 Encounter for immunization; M16.12 Unilateral primary osteoarthritis, left hip; S80.02XA Contusion of left knee, initial encounter; I69.320 Aphasia following cerebral infarction; R40.2142 Coma scale, eyes open, spontaneous, at arrival to emergency department; R40.2362 Coma scale, best motor response, obeys commands, at arrival to emergency department; R40.2252 Coma scale, best verbal response, oriented, at arrival to emergency department; R33.9 Retention of urine, unspecified; E78.5 Hyperlipidemia, unspecified; G47.30 Sleep apnea, unspecified; I87.8 Other specified disorders of veins; I25.2 Old myocardial infarction; R29.6 Repeated falls; Z79.51 Long term (current) use of inhaled steroids; Z79.01 Long term (current) use of anticoagulants; Z79.899 Other long term (current) drug therapy; Z87.891 Personal history of nicotine dependence; Z77.098 Contact with and (suspected) exposure to other hazardous, chiefly nonmedicinal, chemicals; Z86.14 Personal history of Methicillin resistant Staphylococcus aureus infection; Z85.51 Personal history of malignant neoplasm of bladder; Z90.49 Acquired absence of other specified parts of digestive tract; Z98.890 Other specified postprocedural states; Z87.19 Personal history of other diseases of the digestive system; Z96.652 Presence of left artificial knee joint; Z98.42 Cataract extraction status, left eye; Z98.41 Cataract extraction status, right eye; Z95.2 Presence of prosthetic heart valve; Z86.59 Personal history of other mental and behavioral disorders; Z71.3 Dietary counseling and surveillance; Z88.0 Allergy status to penicillin; W18.2XXA Fall in (into) shower or empty bathtub, initial encounter; Y92.002 Bathroom of unspecified non-institutional (private) residence as the place of occurrence of the external cause; Y93.E1 Activity, personal bathing and showering; Z80.3 Family history of malignant neoplasm of breast; Z82.49 Family history of ischemic heart disease and other diseases of the circulatory system
CPT/HCPCS: 36415; 70450; 71045; 72125; 73502; 76770; 80048; 80053; 81001; 82533; 82550; 83735; 85025; 85610; 85730; 90471; 90715; 93005; 94640; 94760; 99285

== ENCOUNTER 2020-03-17 13:05 | Inpatient (IN) | payer MEDICARE ==
[2020-03-17] MEDS ORDERED: TRIAMCINOLONE 0.1% CREAM 80 GM TUBE TOPICAL STA (13:59)
--- NOTE | 2020-03-17 14:18 | ED ---
General Adult HPI - General Source: patient, EMS, RN notes reviewed, old records reviewed Mode of arrival: EMS <Cody Braun - Last Filed: 03/17/20 15:00> <Rojas Pressley - Last Filed: 03/17/20 16:44> - General Chief complaint: Skin/Abscess/Foreign Body Stated complaint: Male Time Seen by Provider: 03/17/20 13:05 - History of Present Illness Initial comments: This is a 74-year-old male who presents emergency Department from the half-way because of increasing fungal rash in the groin and also eroding of the foreskin secondary to the catheter which is been in for approximately a week. EMS reported they sent him in for scrotal bleeding however the site of bleeding appears to be from the foreskin of the penis. Patient has dementia and does not know why is here is in the room and she states that she is not 100% sure w hy he is here because he came from the half-way. There's been no reported fever. There's been no reported abdominal pain chest pain or difficulty breathing. (Cody Braun) - Related Data Home Medications Medication Instructions Recorded Confirmed Cholecalciferol [Vitamin D3 (25 2,000 unit PO DAILY@0700 04/19/17 03/17/20 Mcg = 1000 Iu)] Donepezil [Aricept] 10 mg PO DAILY@199904/19/17 03/17/20 Ferrous Sulfate [Iron (65 MG 325 mg PO DAILY@0700 04/19/17 03/17/20 Elemental)] Memantine HCl [Namenda Xr] 28 mg PO DAILY@1200 04/19/17 03/17/20 Warfarin [Coumadin] 10 mg PO MOTUWETHFRSA@159904/19/17 03/17/20 Albuterol Sulfate [Proventil Hfa] 1 puff INHALATION RT-Q4H PRN 11/10/18 03/17/20 Atorvastatin Calcium [Lipitor] 10 mg PO HS@199911/10/18 03/17/20 Budesonide/Formoterol Fumarate 2 puff INHALATION RT-BID@0800,1600 11/10/18 03/17/20 [Symbicort 160-4.5 Mcg Inhaler] Warfarin Sodium 5 mg PO LACY@159903/03/20 03/17/20 Clotrimazole/Betamethasone Dip 1 applic TOPICAL BID 03/17/20 03/17/20 [Lotrisone Cream] Furosemide [Lasix] 40 mg PO DAILY@0703/17/20 03/17/20 Magnesium Oxide [Mag-Ox] 400 mg PO DAILY@0703/17/20 03/17/20 Metoprolol Succinate (ER) [Toprol 50 mg PO DAILY@0703/17/20 03/17/20 XL] Pantoprazole [Protonix] 40 mg PO DAILY@0603/17/20 03/17/20 Tamsulosin [Flomax] 0.4 mg PO DAILY@199903/17/20 03/17/20 Previous Rx's Medication Instructions Recorded Acetaminophen Tab [Tylenol] 650 mg PO Q6HR PRN tab 03/09/20 oxyCODONE-APAP 5-325MG [Percocet 1 each PO Q4HR PRN tab 03/09/20 5-325 mg] Allergies Allergy/AdvReac Type Severity Reaction Status Date / Time amoxicillin Allergy Rash/Hives Verified 03/17/20 16:14 Penicillins Allergy Rash/Hives Verified 03/17/20 16:14 Review of Systems ROS Other: All systems not noted in ROS Statement are negative. <Cody Braun - Last Filed: 03/17/20 15:00> ROS Other: All systems not noted in ROS Statement are negative. <Rojas Pressley - Last Filed: 03/17/20 16:44> ROS Statement: Those systems with pertinent positive or pertinent negative responses have been documented in the HPI. Past Medical History Past Medical History: Atrial Fibrillation, Heart Failure, COPD, Dementia, Hype rtension, Myocardial Infarction (NM), Osteoarthritis (OA), Sleep Apnea/CPAP/BIPAP Additional Past Medical History / Comment(s): uses cpap, abdominal hernia, lupe leg venous stasis. exposure agent orange, high ammonia Last Myocardial Infarction Date:: unsure History of Any Multi-Drug Resistant Organisms: MRSA Date of last positivie culture/infection: 12/10/18 MDRO Source:: Urine Past Surgical History: Cholecystectomy, Hernia Repair, Joint Replacement, Pacemaker Additional Past Surgical History / Comment(s): heart valve replacement, Bilat cataract surgery, left knee replacement. hernia surgery Past Anesthesia/Blood Transfusion Reactions: No Reported Reaction Type of Cardiac Device: Permanent Pacemaker Device Placement Date:: 2016 Past Psychological History: Anxiety Smoking Status: Never smoker Past Alcohol Use History: None Reported Past Drug Use History: None Reported - Past Family History Mother Family Medical History: Cancer Additional Family Medical History / Comment(s): breast cancer Sister(s) Family Medical History: Cancer, Myocardial Infarction (NM) Father Family Medical History: Myocardial Infarction (NM) <Cody Braun - Last Filed: 03/17/20 15:00> General Exam <Cody Braun - Last Filed: 03/17/20 15:00> - General Exam Comments Initial Comments: GENERAL: Patient is well-developed and well-nourished. Patient is nontoxic and well- hydrated and is in mild distress. ENT: Neck is soft and supple. No significant lymphadenopathy is noted. Oropharynx is clear. Moist mucous membranes. Neck has full range of motion without eliciting any pain. EYES: The sclera were anicteric and conjunctiva were pink and moist. Extraocular movements were intact and pupils were equal round and reactive to light. Eyelids were unremarkable. PULMONARY: Unlabored respirations. Good breath sounds bilaterally. No audible rales rhonchi or wheezing was noted. CARDIOVASCULAR: There is a regular rate and rhythm without any murmurs gallops or rubs. ABDOMEN: Soft and nontender with normal bowel sounds. SKIN: Patient has extensive intertrigo and bilateral groins. There also appears to be eroded foreskin from pressure of the catheter. Patient also has an edematous scrotum. NEUROLOGIC: Patient is alert and oriented x3. Cranial nerves II through XII are grossly intact. Motor and sensory are also intact. Normal speech, volume and content. Symmetrical smile. MUSCULOSKELETAL: Normal extremities with adequate strength and full range of motion. LYMPHATICS: No significant lymphadenopathy is noted PSYCHIATRIC: Normal psychiatric evaluation. (Cody Braun) Course <Rojas Pressley - Last Filed: 03/17/20 16:44> Vital Signs 03/17/20 03/17/20 03/17/20 13:06 14:25 15:57 Temperature 97.5 F L Pulse Rate 65 61 80 Respiratory 18 18 18 Rate Blood Pressure 83/41 84/45 105/52 O2 Sat by Pulse 96 96 96 Oximetry - Reevaluation(s) Reevaluation #1: 03/17/20 16:40 The patient was endorsed me by Dr. Braun at our shift change pending lab work. Present with a Clinton catheter with erosion into his meatus and foreskin. Fear of sepsis he was hypotensive upon arrival he did receive fluids with improvement however the blood pressure cuff appears be ill fitting at this time. Patient is awake alert oriented 3 lab findings are consistent with Coumadin toxicity also acute kidney injury and his creatinine is 3.07 and was 1.1 about a week ago. The case is discussed with Dr. Velasco and Dr. Limon. Dr. Sanabria will be consulted also. (Rojas Pressley) Medical Decision Making - Lab Data Result diagrams: 03/17/20 14:27 03/17/20 14:27 <Cody Braun - Last Filed: 03/17/20 15:00> - Lab Data Result diagrams: 03/17/20 14:27 03/17/20 14:27 <Rojas Pressley - Last Filed: 03/17/20 16:44> - Medical Decision Making EKG shows undetermined rhythm or possibly a paced rhythm at 81 bpm QRS is 154 QT interval is 464 QTC is 539. Patient's EKG shows no obvious ST segment elevation or depression. Dr. Pressley be taking over the care of this patient at 3 PM (Cody Braun) - Lab Data Lab Results 03/17/20 03/17/20 03/17/20 Range/Units 14:27 14:27 14:27 WBC 11.3 H (3.8-10.6) k/uL RBC 3.37 L (4.30-5.90) m/uL Hgb 11.1 L (13.0-17.5) gm/dL Hct 34.1 L (39.0-53.0) % MCV 101.2 H (80.0-100.0) fL MCH 33.0 (25.0-35.0) pg MCHC 32.6 (31.0-37.0) g/dL RDW 14.7 (11.5-15.5) % Plt Count 279 (150-450) k/uL Neutrophils % 84 % Lymphocytes % 7 % Monocytes % 6 % Eosinophils % 2 % Basophils % 1 % Neutrophils # 9.5 H (1.3-7.7) k/uL Lymphocytes # 0.8 L (1.0-4.8) k/uL Monocytes # 0.7 (0-1.0) k/uL Eosinophils # 0.3 (0-0.7) k/uL Basophils # 0.1 (0-0.2) k/uL Macrocytosis Slight PT >130.0 H (9.0-12.0) sec INR >10.0 H* (<1.2) APTT 80.7 H (22.0-30.0) sec Sodium (137-145) mmol/L Potassium (3.5-5.1) mmol/L Chloride (98-107) mmol/L Carbon Dioxide (22-30) mmol/L Anion Gap mmol/L BUN (9-20) mg/dL Creatinine (0.66-1.25) mg/dL Est GFR (CKD-EPI)AfAm (>60 ml/min/1.73 sqM) Est GFR (CKD-EPI)NonAf (>60 ml/min/1.73 sqM) Glucose (74-99) mg/dL Plasma Lactic Acid Dami (0.7-2.0) mmol/L Calcium (8.4-10.2) mg/dL Total Bilirubin (0.2-1.3) mg/dL AST (17-59) U/L ALT (4-49) U/L Alkaline Phosphatase (38-126) U/L Total Protein (6.3-8.2) g/dL Albumin (3.5-5.0) g/dL Urine Color Yellow Urine Appearance Cloudy (Clear) Urine pH 7.5 (5.0-8.0) Ur Specific [place] 1.013 (1.001-1.035) Urine Protein 1+ H (Negative) Urine Glucose (UA) Negative (Negative) Urine Ketones Negative (Negative) Urine Blood Moderate H (Negative) Urine Nitrite Negative (Negative) Urine Bilirubin Negative (Negative) Urine Urobilinogen <2.0 (<2.0) mg/dL Ur Leukocyte Esterase Large H (Negative) Urine RBC 21 H (0-5) /hpf Urine WBC 88 H (0-5) /hpf Urine WBC Clumps Few H (None) /hpf Ur Squamous Epith Cells 1 (0-4) /hpf Urine Bacteria Occasional H (None) /hpf Hyaline Casts 10 H (0-2) /lpf Urine Mucus Rare H (None) /hpf 03/17/20 03/17/20 Range/Units 14:27 14:27 WBC (3.8-10.6) k/uL RBC (4.30-5.90) m/uL Hgb (13.0-17.5) gm/dL Hct (39.0-53.0) % MCV (80.0-100.0) fL MCH (25.0-35.0) pg MCHC (31.0-37.0) g/dL RDW (11.5-15.5) % Plt Count (150-450) k/uL Neutrophils % % Lymphocytes % % Monocytes % % Eosinophils % % Basophils % % Neutrophils # (1.3-7.7) k/uL Lymphocytes # (1.0-4.8) k/uL Monocytes # (0-1.0) k/uL Eosinophils # (0-0.7) k/uL Basophils # (0-0.2) k/uL Macrocytosis PT (9.0-12.0) sec INR (<1.2) APTT (22.0-30.0) sec Sodium 134 L (137-145) mmol/L Potassium 5.6 H (3.5-5.1) mmol/L Chloride 104 (98-107) mmol/L Carbon Dioxide 25 (22-30) mmol/L Anion Gap 5 mmol/L BUN 77 H (9-20) mg/dL Creatinine 3.07 H (0.66-1.25) mg/dL Est GFR (CKD-EPI)AfAm 22 (>60 ml/min/1.73 sqM) Est GFR (CKD-EPI)NonAf 19 (>60 ml/min/1.73 sqM) Glucose 129 H (74-99) mg/dL Plasma Lactic Acid Dami 1.8 (0.7-2.0) mmol/L Calcium 8.4 (8.4-10.2) mg/dL Total Bilirubin 1.0 (0.2-1.3) mg/dL AST 33 (17-59) U/L ALT 22 (4-49) U/L Alkaline Phosphatase 109 (38-126) U/L Total Protein 6.3 (6.3-8.2) g/dL Albumin 3.1 L (3.5-5.0) g/dL Urine Color Urine Appearance (Clear) Urine pH (5.0-8.0) Ur Specific [place] (1.001-1.035) Urine Protein (Negative) Urine Glucose (UA) (Negative) Urine Ketones (Negative) Urine Blood (Negative) Urine Nitrite (Negative) Urine Bilirubin (Negative) Urine Urobilinogen (<2.0) mg/dL Ur Leukocyte Esterase (Negative) Urine RBC (0-5) /hpf Urine WBC (0-5) /hpf Urine WBC Clumps (None) /hpf Ur Squamous Epith Cells (0-4) /hpf Urine Bacteria (None) /hpf Hyaline Casts (0-2) /lpf Urine Mucus (None) /hpf Disposition <Cody Braun - Last Filed: 03/17/20 15:00> <Rojas Pressley - Last Filed: 03/17/20 16:44> Clinical Impression: Acute kidney injury, Penile erosion, Coumadin toxicity, Hypotensive episode Disposition: ADMITTED IP TO THIS HOSP Condition: Stable Referrals: Gina Velasco MD [Primary Care Provider] - 1-2 days
[2020-03-17] MEDS ORDERED: SODIUM CHLORIDE 0.9% 1,000 ML IV ONE (14:26)
[2020-03-17 14:48] LABS: Basophils # (A) 0.1 k/uL (0-0.2); Basophils % (A) 1 %; Eosinophils # (A) 0.3 k/uL (0-0.7); Eosinophils % (A) 2 %; HCT 34.1 % (39.0-53.0); HGB 11.1 gm/dL (13.0-17.5); Lymphocytes # (A) 0.8 k/uL (1.0-4.8); Lymphocytes % (A) 7 %; MCHC 32.6 g/dL (31.0-37.0); MCV 101.2 fL (80.0-100.0); Macrocytosis Slight; Mean Platelet Volume 7.4; Monocytes # (A) 0.7 k/uL (0-1.0); Monocytes % (A) 6 %; Neutrophils # (A) 9.5 k/uL (1.3-7.7); Neutrophils % (A) 84 %; Platelet Count 279 k/uL (150-450); RBC 3.37 m/uL (4.30-5.90); RDW 14.7 % (11.5-15.5); WBC 11.3 k/uL (3.8-10.6)
[2020-03-17 14:59] LABS: Albumin 3.1 g/dL (3.5-5.0); Calcium 8.4 mg/dL (8.4-10.2); Potassium 5.6 mmol/L (3.5-5.1); Total Protein 6.3 g/dL (6.3-8.2)
[2020-03-17] MEDS ORDERED: cefTRIAXone IN SWFI 1,000 MG/10 ML SYRINGE IVP STA (15:04)
--- NOTE | 2020-03-17 15:12 | XR ---
EXAMINATION TYPE: XR chest 2V DATE OF EXAM: 03/17/2020 COMPARISON: 03/03/2020 INDICATION: Difficulty breathing TECHNIQUE: Frontal and lateral views of the chest are obtained. FINDINGS: The heart size is enlarged. The pulmonary vasculature is normal. Left lower lobe infiltrate may be present. Correlate for atelectasis or pneumonia.. Pacemaker overli es left chest. Sternotomy wires are present. IMPRESSION: 1. Opacity over the left lower lung region. Correlate for atelectasis or pneumonia.
[2020-03-17 15:18] LABS: Appearance,Urine Cloudy (Clear); Bacteria,Urine Occasional /hpf; Bilirubin,Urine Negative (Negative); Blood,Urine Moderate (Negative); Color,Urine Yellow; Glucose,Urine (UA) Negative (Negative); Hyaline Casts,Urine 10 /lpf (0-2); Ketones,Urine Negative (Negative); Leukocyte Esterase,Urine Large (Negative); Mucus,Urine Rare /hpf; Nitrite,Urine Negative (Negative); PH, Urine 7.5 (5.0-8.0); Protein,Urine 1+ (Negative); RBC,Urine 21 /hpf (0-5); Specific Gravity,Urine 1.013 (1.001-1.035); Squamous Epithelial Cell,Urine 1 /hpf (0-4); Urobilinogen,Urine <2.0 mg/dL (<2.0); WBC,Urine 88 /hpf (0-5)
[2020-03-17 15:25] LABS: INR >10.0 (<1.2); Partial Thromboplastin Time 80.7 sec (22.0-30.0); Prothrombin Time >130.0 sec (9.0-12.0)
[2020-03-17] MEDS ORDERED: NALOXONE 0.4 MG/ML 1 ML VIAL IV PRN (16:54)
[2020-03-17] MEDS ORDERED: ALBUTEROL NEBULIZED 2.5 MG/3 ML INHALATION PRN (16:57)
[2020-03-17] MEDS ORDERED: ACETAMINOPHEN TAB 325 MG TAB PO PRN (16:57)
[2020-03-17] MEDS ORDERED: oxyCODONE-APAP 5-325MG 1 EACH TAB PO PRN (16:57)
[2020-03-17] MEDS ORDERED: SODIUM CHLORIDE 0.9% 1,000 ML IV SCH (17:00)
[2020-03-17] MEDS ORDERED: PHYTONADIONE ORAL 5 MG/5 ML ORAL.SYRG PO STA (18:01)
[2020-03-17] MEDS: ATORVASTATIN 10 MG TAB PO SCH (21:54)
[2020-03-17] MEDS: DONEPEZIL 10 MG TAB PO SCH (21:54)
[2020-03-17] MEDS: TAMSULOSIN 0.4 MG CAP.ER.24H PO SCH (21:54)
[2020-03-17] MEDS: CLOTRIMAZOLE/BETAMETH 1-0.05% CREAM 45 GM TUBE TOPICAL SCH (21:54)
[2020-03-18] MEDS: METOPROLOL SUCCINATE (ER) 50 MG TAB.ER.24H PO SCH (06:31)
[2020-03-18] MEDS: MAGNESIUM OXIDE 400 MG TAB PO SCH (06:31)
[2020-03-18] MEDS: CHOLECALCIFEROL 1,000 UNIT TAB PO SCH (06:31)
[2020-03-18] MEDS: FERROUS SULFATE 325 MG TAB PO SCH (06:31)
[2020-03-18] MEDS: PANTOPRAZOLE 40 MG TABLET PO SCH (06:31)
[2020-03-18] MEDS ORDERED: FUROSEMIDE 40 MG TAB PO SCH (07:00)
[2020-03-18 08:04] LABS: Albumin 2.5 g/dL (3.5-5.0); Calcium 7.7 mg/dL (8.4-10.2); Potassium 5.7 mmol/L (3.5-5.1); Total Bilirubin 0.9 mg/dL (0.2-1.3); Total Protein 5.2 g/dL (6.3-8.2)
[2020-03-18 08:07] LABS: Basophils % (A) 0 %; Eosinophils # (A) 0.2 k/uL (0-0.7); Eosinophils % (A) 2 %; HCT 31.8 % (39.0-53.0); HGB 9.9 gm/dL (13.0-17.5); Hypochromasia Slight; Lymphocytes # (A) 0.6 k/uL (1.0-4.8); Lymphocytes % (A) 6 %; MCH 32.3 pg (25.0-35.0); MCHC 31.1 g/dL (31.0-37.0); MCV 103.9 fL (80.0-100.0); Macrocytosis Moderate; Mean Platelet Volume 7.6; Monocytes # (A) 0.6 k/uL (0-1.0); Monocytes % (A) 6 %; Neutrophils # (A) 8.7 k/uL (1.3-7.7); Neutrophils % (A) 85 %; Platelet Count 282 k/uL (150-450); RBC 3.06 m/uL (4.30-5.90); WBC 10.2 k/uL (3.8-10.6)
[2020-03-18 08:53] LABS: Prothrombin Time 92.9 sec (9.0-12.0)
[2020-03-18 08:54] LABS: INR 8.9 (<1.2)
[2020-03-18] MEDS: SYMBICORT 160-4.5 MCG INHALER INHALATION SCH ×2 (08:54→20:19)
[2020-03-18] MEDS ORDERED: MEMANTINE 10 MG TAB PO SCH (09:00)
[2020-03-18] MEDS: CLOTRIMAZOLE/BETAMETH 1-0.05% CREAM 45 GM TUBE TOPICAL SCH ×2 (09:45→22:13)
[2020-03-18] MEDS ORDERED: SODIUM POLYSTYRENE SULFONATE 15 GM/60 ML BOTTLE PO STA (09:53)
[2020-03-18] MEDS ORDERED: DEXTROSE 50% SYRINGE 50 ML IVP STA ×2 (10:06→17:16)
[2020-03-18] MEDS ORDERED: INSULIN REGULAR 100 UNIT/ML VIAL IV ONE ×2 (10:15→17:15)
--- NOTE | 2020-03-18 10:58 | P.NPCON ---
History of Present Illness - Reason for Consult acute renal failure - History of Present Illness reason for consultation: Acute kidney injury history of present illness: Patient is a 74-year-old male seen in renal consultation for acute kidney injury. Patient was sent over from extended care facility due to concern for infection of the penis and scrotum. Patient currently has a Hoyos catheter which was placed about a week ago. Creatinine was 3.07 on admission and is 2.97 today. Patient is not a reliable historian due to dementia. However he denies chest pain or shortness of breath. Denies vomiting or diarrhea. No abdominal pain. He is afebrile. Blood pressure has been on the lower side in the systolic 90s to low 100s. No evidence of fluid overload noted on chest x-ray. He is maintained on Lasix 40 mg orally once daily and received toast this morning. He is also receiving IV fluids with normal saline at 50 mL an hour. Urine culture is pending. He is maintained on IV antibiotics. Patient's INR was noted to be greater than 10 and he did receive vitamin K. Hemoglobin fairly stable at 9.9. Potassium level was 5.7 this morning and he did receive a dose of Kayexalate. Blood sugars are controlled. No evidence of metabolic acidosis. Vital signs are stable. BP on lower side. General: The patient appeared well nourished and normally developed. HEENT: Head exam is unremarkable. Neck is without jugular venous distension. LUNGS: Breath sounds decreased. HEART: Rate and Rhythm are regular. ABDOMEN: Abdominal exam reveals normal bowel sounds. Non-tender and non-distended. EXTREMITITES: No edema; chronic skin changes noted. scrotal erythema noted; no drainage. Past Medical History Past Medical History: Atrial Fibrillation, Heart Failure, COPD, Dementia, Hypertension, Myocardial Infarction (ME), Osteoarthritis (OA), Sleep Apnea /CPAP/BIPAP Additional Past Medical History / Comment(s): uses cpap, abdominal hernia, lupe leg venous stasis. exposure agent orange, high ammonia Last Myocardial Infarction Date:: unsure History of Any Multi-Drug Resistant Organisms: MRSA Date of last positivie culture/infection: 12/10/18 MDRO Source:: Urine Past Surgical History: Cholecystectomy, Hernia Repair, Joint Replacement, Pacemaker Additional Past Surgical History / Comment(s): heart valve replacement, Bilat cataract surgery, left knee replacement. hernia surgery Past Anesthesia/Blood Transfusion Reactions: No Reported Reaction Type of Cardiac Device: Permanent Pacemaker Device Placement Date:: 2016 Past Psychological History: Anxiety Additional Psychological History / Comment(s): dementia Smoking Status: Never smoker Past Alcohol Use History: None Reported Additional Past Alcohol Use History / Comment(s): starting smoking age 21, 2ppd quit 2009 Past Drug Use History: None Reported - Past Family History Mother Family Medical History: Cancer Additional Family Medical History / Comment(s): breast cancer Sister(s) Family Medical History: Cancer, Myocardial Infarction (ME) Father Family Medical History: Myocardial Infarction (ME) Medications and Allergies Home Medications Medication Instructions Recorded Confirmed Type Cholecalciferol [Vitamin D3 (25 2,000 unit PO DAILY@0700 04/19/17 03/17/20 History Mcg = 1000 Iu)] Donepezil [Aricept] 10 mg PO DAILY@199904/19/17 03/17/20 History Ferrous Sulfate [Iron (65 MG 325 mg PO DAILY@0704/19/17 03/17/20 History Elemental)] Memantine HCl [Namenda Xr] 28 mg PO DAILY@1200 04/19/17 03/17/20 History Warfarin [Coumadin] 10 mg PO MOTUWETHFRSA@159904/19/17 03/17/20 History Albuterol Sulfate [Proventil Hfa] 1 puff INHALATION RT-Q4H PRN 11/10/18 03/17/20 History Atorvastatin Calcium [Lipitor] 10 mg PO HS@199911/10/18 03/17/20 History Budesonide/Formoterol Fumarate 2 puff INHALATION RT-BID@0800,1600 11/10/18 03/17/20 History [Symbicort 160-4.5 Mcg Inhaler] Warfarin Sodium 5 mg PO LACY@159903/03/20 03/17/20 History Acetaminophen Tab [Tylenol] 650 mg PO Q6HR PRN tab 03/09/20 03/17/20 Rx oxyCODONE-APAP 5-325MG [Percocet 1 each PO Q4HR PRN tab 03/09/20 03/17/20 Rx 5-325 mg] Clotrimazole/Betamethasone Dip 1 applic TOPICAL BID 03/17/20 03/17/20 History [Lotrisone Cream] Furosemide [Lasix] 40 mg PO DAILY@0700 31/20 10/31/20 History Magnesium Oxide [Mag-Ox] 400 mg PO DAILY@69903/17/20 03/17/20 History Metoprolol Succinate (ER) [Toprol 50 mg PO DAILY@69903/17/20 03/17/20 History XL] Pantoprazole [Protonix] 40 mg PO DAILY@59903/17/20 03/17/20 History Tamsulosin [Flomax] 0.4 mg PO DAILY@199903/17/20 03/17/20 History Allergies Allergy/AdvReac Type Severity Reaction Status Date / Time amoxicillin Allergy Rash/Hives Verified 03/17/20 16:14 Penicillins Allergy Rash/Hives Verified 03/17/20 16:14 Physical Exam Vitals: Vital Signs Temp Pulse Pulse Resp BP BP Pulse Ox 03/18/20 08:00 97.5 F L 61 20 101/68 95 03/18/20 05:08 97.9 F 84 20 92/50 99 03/18/20 00:11 98.0 F 71 20 90/52 97 03/17/20 19:50 18 03/17/20 19:35 98.0 F 70 16 100/50 97 03/17/20 17:33 90/50 03/17/20 17:21 93/48 03/17/20 17:13 75 18 86/63 96 03/17/20 15:57 80 18 105/52 96 03/17/20 14:25 61 18 84/45 96 03/17/20 13:06 97.5 F L 65 18 83/41 96 Intake and Output 03/17/20 03/18/20 03/18/20 23:59 06:59 14:59 Intake Total 118 Output Total Balance 118 Intake: Oral 118 Output: Urine Other: Voiding Method Weight Results - Lab Results Most recent lab results Calcium 7.7 mg/dL (8.4-10.2) L 03/18/20 07:20 03/18/20 07:19 03/18/20 07:20 Assessment and Plan Plan: Assessment: 1. Acute kidney injury secondary to ATN secondary to diuresis and hypotension. Creatinine 3.07 on admission and is 2.97 today. Baseline creatinine near 1. Ultrasound from February 2020 revealed no evidence of hydronephrosis. 2. Hyperkalemia secondary to acute kidney injury. 3. Coagulopathy status post vitamin K. 4. History of bladder cancer. 5. History of urinary retention status post Hoyos catheter placement. 6. UTI and scrotal erythema and penile erosion. Urine culture pending. Currently on antibiotics. Plan: Maintain normal saline at 50 mL an hour. Hold diuretics. 10 units IV insulin with an amp of D50 now. Repeat potassium level at 2 PM. Encouraged oral intake. Follow-up cultures. Continue to monitor renal function and urine output. Urology consulted. Consider changing hoyos catheter. Check a.m. cortisol level. 500 mL bolus of 0.9 normal saline if systolic blood pressure remains below 100. Thank you for the consultation. I will continue to follow the patient with you during his hospital stay.
--- NOTE | 2020-03-18 11:01 | P.HPIM ---
History of Present Illness H&P Date: 03/18/20 Te Brady is a 74-year-old male patient who presented to the ER from rehab with complaints of increased O fungal rash in the groin eroding foreskin secondary to catheter. Patient also had acute kidney injury and elevated INR. Patient's past medical history of atrial fibrillation which she is maintained on Coumadin, heart failure, COPD, dementia, hypertension, myocardial infarction, osteoarthritis with sleep apnea in which he uses home CPAP machine, pacemaker, anxiety and heart valve replacement. Patient's creatinine upon admission 3.07 and bun 77 potassium also elevated at 56. INR greater than 10. UA positive for the same Estrace. Chest x-ray completed showing T over the left lower lung region correlate for atelectasis or pneumonia. At this time patient has been started on Rocephin and Levaquin for IV antibiotics. Urology services have been consulted. Nephrology service is consulted for acute kidney injury. Potassium lowering cocktail given per nephrology. Dr. zavala and has been consulted for pulmonary due to possible pneumonia. Wound and blood cultures ordered. at this time patient denies chest pain or shortness of breath. Patient denies nausea vomiting or diarrhea. Review of Systems please refer to HPI otherwise unremarkable Past Medical History Past Medical History: Atrial Fibrillation, Heart Failure, COPD, Dementia, Hypertension, Myocardial Infarction ([place]), Osteoarthritis (OA), Sleep A pnea/CPAP/BIPAP Additional Past Medical History / Comment(s): uses cpap, abdominal hernia, lupe leg venous stasis. exposure agent orange, high ammonia Last Myocardial Infarction Date:: unsure History of Any Multi-Drug Resistant Organisms: MRSA Date of last positivie culture/infection: 12/10/18 MDRO Source:: Urine Past Surgical History: Cholecystectomy, Hernia Repair, Joint Replacement, Pacemaker Additional Past Surgical History / Comment(s): heart valve replacement, Bilat cataract surgery, left knee replacement. hernia surgery Past Anesthesia/Blood Transfusion Reactions: No Reported Reaction Type of Cardiac Device: Permanent Pacemaker Device Placement Date:: 2016 Past Psychological History: Anxiety Additional Psychological History / Comment(s): dementia Smoking Status: Never smoker Past Alcohol Use History: None Reported Additional Past Alcohol Use History / Comment(s): starting smoking age 21, 2ppd quit 2009 Past Drug Use History: None Reported - Past Family History Mother Family Medical History: Cancer Additional Family Medical History / Comment(s): breast cancer Sister(s) Family Medical History: Cancer, Myocardial Infarction (MA) Father Family Medical History: Myocardial Infarction (MA) Medications and Allergies Home Medications Medication Instructions Recorded Confirmed Type Cholecalciferol [Vitamin D3 (25 2,000 unit PO DAILY@0700 04/19/17 03/17/20 History Mcg = 1000 Iu)] Donepezil [Aricept] 10 mg PO DAILY@199904/19/17 03/17/20 History Ferrous Sulfate [Iron (65 MG 325 mg PO DAILY@69904/19/17 03/17/20 History Elemental)] Memantine HCl [Namenda Xr] 28 mg PO DAILY@119904/19/17 03/17/20 History Warfarin [Coumadin] 10 mg PO MOTUWETHFRSA@159904/19/17 03/17/20 History Albuterol Sulfate [Proventil Hfa] 1 puff INHALATION RT-Q4H PRN 11/10/18 03/17/20 History Atorvastatin Calcium [Lipitor] 10 mg PO HS@199911/10/18 03/17/20 History Budesonide/Formoterol Fumarate 2 puff INHALATION RT-BID@0800,1600 11/10/18 03/17/20 History [Symbicort 160-4.5 Mcg Inhaler] Warfarin Sodium 5 mg PO LACY@159903/03/20 03/17/20 History Acetaminophen Tab [Tylenol] 650 mg PO Q6HR PRN tab 03/09/20 03/17/20 Rx oxyCODONE-APAP 5-325MG [Percocet 1 each PO Q4HR PRN tab 03/09/20 03/17/20 Rx 5-325 mg] Clotrimazole/Betamethasone Dip 1 applic TOPICAL BID 03/17/20 03/17/20 History [Lotrisone Cream] Furosemide [Lasix] 40 mg PO DAILY@0703/17/20 03/17/20 History Magnesium Oxide [Mag-Ox] 400 mg PO DAILY@0703/17/20 03/17/20 History Metoprolol Succinate (ER) [Toprol 50 mg PO DAILY@0700 03/17/20 03/17/20 History XL] Pantoprazole [Protonix] 40 mg PO DAILY@0603/17/20 03/17/20 History Tamsulosin [Flomax] 0.4 mg PO DAILY@199903/17/20 03/17/20 History Allergies Allergy/AdvReac Type Severity Reaction Status Date / Time amoxicillin Allergy Rash/Hives Verified 03/17/20 16:14 Penicillins Allergy Rash/Hives Verified 03/17/20 16:14 Physical Exam Vitals: Vital Signs Temp Pulse Pulse Resp BP BP Pulse Ox 03/18/20 05:08 97.9 F 84 20 92/50 99 03/18/20 00:11 98.0 F 71 20 90/52 97 03/17/20 19:50 18 03/17/20 19:35 98.0 F 70 16 100/50 97 03/17/20 17:33 90/50 03/17/20 17:21 93/48 03/17/20 17:13 75 18 86/63 96 03/17/20 15:57 80 18 105/52 96 03/17/20 14:25 61 18 84/45 96 03/17/20 13:06 97.5 F L 65 18 83/41 96 Intake and Output 03/17/20 03/18/20 03/18/20 23:59 06:59 14:59 Intake Total Output Total Balance Intake: Oral Output: Urine Other: Voiding Method Weight Head normocephalic Neck supple Lungs clear to auscultation bilaterally no wheezing or crackles Heart irregular rate. known atrial fibrillation Abdomen is soft nontender nondistended positive bowel sounds no hepatosplenomegaly Extremities no edema Neuro alert and orientated to 2. Dementia Drainage noted to penile area around catheter. Erosion to groin area. Results CBC & Chem 7: 03/18/20 07:19 03/18/20 07:20 Labs: Abnormal Lab Results - Last 24 Hours (Table) 03/17/20 03/17/20 03/17/20 Range/Units 14:27 14:27 14:27 WBC 11.3 H (3.8-10.6) k/uL RBC 3.37 L (4.30-5.90) m/uL Hgb 11.1 L (13.0-17.5) gm/dL Hct 34.1 L (39.0-53.0) % MCV 101.2 H (80.0-100.0) fL Neutrophils # 9.5 H (1.3-7.7) k/uL Lymphocytes # 0.8 L (1.0-4.8) k/uL PT >130.0 H (9.0-12.0) sec INR >10.0 H* (<1.2) APTT 80.7 H (22.0-30.0) sec Sodium (137-145) mmol/L Potassium (3.5-5.1) mmol/L BUN (9-20) mg/dL Creatinine (0.66-1.25) mg/dL Glucose (74-99) mg/dL Albumin (3.5-5.0) g/dL Urine Protein 1+ H (Negative) Urine Blood Moderate H (Negative) Ur Leukocyte Esterase Large H (Negative) Urine RBC 21 H (0-5) /hpf Urine WBC 88 H (0-5) /hpf Urine WBC Clumps Few H (None) /hpf Urine Bacteria Occasional H (None) /hpf Hyaline Casts 10 H (0-2) /lpf Urine Mucus Rare H (None) /hpf 03/17/20 Range/Units 14:27 WBC (3.8-10.6) k/uL RBC (4.30-5.90) m/uL Hgb (13.0-17.5) gm/dL Hct (39.0-53.0) % MCV (80.0-100.0) fL Neutrophils # (1.3-7.7) k/uL Lymphocytes # (1.0-4.8) k/uL PT (9.0-12.0) sec INR (<1.2) APTT (22.0-30.0) sec Sodium 134 L (137-145) mmol/L Potassium 5.6 H (3.5-5.1) mmol/L BUN 77 H (9-20) mg/dL Creatinine 3.07 H (0.66-1.25) mg/dL Glucose 129 H (74-99) mg/dL Albumin 3.1 L (3.5-5.0) g/dL Urine Protein (Negative) Urine Blood (Negative) Ur Leukocyte Esterase (Negative) Urine RBC (0-5) /hpf Urine WBC (0-5) /hpf Urine WBC Clumps (None) /hpf Urine Bacteria (None) /hpf Hyaline Casts (0-2) /lpf Urine Mucus (None) /hpf Microbiology - Last 24 Hours (Table) 03/17/20 14:27 Urine Culture - Preliminary Urine,Voided Thrombosis Risk Factor Assmnt - Choose All That Apply Each Factor Represents 1 point: Abnormal pulmonary function (COPD), Obesity (BMI >25), Swollen legs (current) Thrombosis Risk Factor Assessment Total Risk Factor Score: 3 Thrombosis Risk Factor Assessment Level: Moderate Risk Assessment and Plan Assessment: 1. Infection around catheter site with penile erosion. Wound cultures have been obtained. Blood cultures ordered. Patient started on Levaquin and Rocephin. Urology consult placed 2. Acute kidney injury with elevated potassium. Creatinine elevated at 3.06 upon admission. Continue normal saline at 50. Potassium lowing cocktail ordered per nephrology services 3. Supratherapeutic INR. Hold Coumadin and recheck 4. Possible pneumonia. Patient started on Levaquin and Rocephin. Pulmonary service is consulted 5. History of insulin-dependent diabetes mellitus 6. History of essential hypertension 7. History of hyperlipidemia. Maintained on statin 8. History of stroke with suppressive aphasia 9. History of morbid obesity 10. History of urinary retention and difficulty with [place] insertion. Urology services have been consulted 11. Dementia. Maintained on Aricept and Namenda DVT prophylaxis SCDs due to subtherapeutic INR. GI prophylaxis Protonix Urology, nephrology and pulmonary service is consulted Levaquin and Rocephin for IV antibiotics wound and blood cultures ordered Coumadin on hold Time with Patient: Greater than 30 (Greater than 60% of the total time spent in counseling and coordination of care)
[2020-03-18] MEDS ORDERED: LEVOFLOXACIN 500MG-D5W PMX 500 MG in DEXTROSE/WATER 1 100ML.BAG IVPB ONE (12:00)
[2020-03-18] MEDS: SODIUM CHLORIDE 0.9% 1,000 ML IV SCH (12:09)
--- NOTE | 2020-03-18 12:16 | P.CRDCN ---
History of Present Illness Consult date: 03/18/20 History of present illness: The patient is a 74-year-old male with extensive past medical history, including persistent atrial fibrillation, sick sinus syndrome status post permanent pacemaker, coronary artery disease, and history of dementia, who presented to the emergency room for bleeding from his catheter site. He was found to have an acute kidney injury, as well as supratherapeutic INR greater than 10. Cardiology was consulted due to his extensive past history. Patient was interviewed and examined sitting comfortably in bed. He is alert and oriented to self. He denies any chest pain or shortness of breath. DIAGNOSTICS: EKG shows paced rhythm Chest x-ray shows possible atelectasis or pneumonia in left lower lobe Vital signs 101/68, ulcerated 61, respiratory rate 20, temp 97.5F, 95% SpO2 on room air Laboratory data: WBC 10.2, hemoglobin 9.9, platelet 282, INR 8.9, sodium 134, potassium 5.7, BUN 83, creatinine 2.97, AST 31, ALT 20 PAST MEDICAL HISTORY: Persistent atrial fibrillation, congestive heart failure, COPD, dementia, hypertension, coronary artery disease, osteoarthritis, sleep apnea, sick sinus syndrome status post permanent pacemaker REVIEW OF SYSTEMS: No fever or chills. No cough or expectoration. No diaphoresis. Patient denies headache, dizziness, blurred vision, double vision. Patient denies any stomach discomfort. No nausea, vomiting. No hematochezia. No hematemesis. Denies any black stools or blood in his stools. Denies dysuria or hematuria. No muscle weakness or numbness. PHYSICAL EXAMINATION: This is a 74-year-old obese male in no apparent distress at the time of my examination. HEENT: Head is atraumatic, normocephalic. Pupils are equal, round. Sclerae anicteric. Conjunctivae are clear. Mucous membranes of the mouth are moist. Neck is supple. There is no jugular venous distention. No carotid bruit is heard. CHEST EXAMINATION: Lungs are clear to auscultation. Diminished in the bases. No chest wall tenderness is noted on palpation or with deep breathing. HEART EXAMINATION: Heart regular rate and rhythm. S1, S2 heard. No murmurs, gallops or rub. ABDOMEN: Soft, nontender. Bowel sounds are heard. No organomegaly noted. EXTREMITIES: 2+ peripheral edema. Diffuse bruising. no calf tenderness noted. NEUROLOGIC EXAMINATION: Patient is awake, alert and oriented x1. FINAL ASSESSMENT AND PLAN: #1 acute kidney injury #2 hyperkalemia #3 supratherapeutic INR #4 possible pneumonia #5 history of sick sinus syndrome status post permanent pacemaker #6 persistent atrial fibrillation, supratherapeutic INR #7 history of hypertension #8 morbid obesity PLAN: We will hold warfarin at this time. Consider transitioning to novel anticoagulation due to warfarin toxicity. Device interrogation on Thursday, after determining brand of device. Continue to monitor electrolytes and kidney function. Past Medical History Past Medical History: Atrial Fibrillation, Heart Failure, COPD, Dementia, Hypertension, Myocardial Infarction ([place]), Osteoarthritis ([place]), Sleep Apnea/CPAP/ BIPAP Additional Past Medical History / Comment(s): uses cpap, abdominal hernia, lupe leg venous stasis. exposure agent orange, high ammonia Last Myocardial Infarction Date:: unsure History of Any Multi-Drug Resistant Organisms: MRSA Date of last positivie culture/infection: 12/10/18 MDRO Source:: Urine Past Surgical History: Cholecystectomy, Hernia Repair, Joint Replacement, Pacemaker Additional Past Surgical History / Comment(s): heart valve replacement, Bilat cataract surgery, left knee replacement. hernia surgery Past Anesthesia/Blood Transfusion Reactions: No Reported Reaction Type of Cardiac Device: Permanent Pacemaker Device Placement Date:: 2016 Past Psychological History: Anxiety Additional Psychological History / Comment(s): dementia Smoking Status: Never smoker Past Alcohol Use History: None Reported Additional Past Alcohol Use History / Comment(s): starting smoking age 21, 2ppd quit 2009 Past Drug Use History: None Reported - Past Family History Mother Family Medical History: Cancer Additional Family Medical History / Comment(s): breast cancer Sister(s) Family Medical History: Cancer, Myocardial Infarction ([place]) Father Family Medical History: Myocardial Infarction ([place]) Medications and Allergies Home Medications Medication Instructions Recorded Confirmed Type Cholecalciferol [Vitamin D3 (25 2,000 unit PO DAILY@0704/19/17 03/17/20 History Mcg = 1000 Iu)] Donepezil [Aricept] 10 mg PO DAILY@199904/19/17 03/17/20 History Ferrous Sulfate [Iron (65 MG 325 mg PO DAILY@0700 04/19/17 03/17/20 History Elemental)] Memantine HCl [Namenda Xr] 28 mg PO DAILY@1200 04/19/17 03/17/20 History Warfarin [Coumadin] 10 mg PO MOTUWETHFRSA@1600 04/19/17 03/17/20 History Albuterol Sulfate [Proventil Hfa] 1 puff INHALATION RT-Q4H PRN 11/10/18 03/17/20 History Atorvastatin Calcium [Lipitor] 10 mg PO HS@199911/10/18 03/17/20 History Budesonide/Formoterol Fumarate 2 puff INHALATION RT-BID@0800,1600 11/10/18 03/17/20 History [Symbicort 160-4.5 Mcg Inhaler] Warfarin Sodium 5 mg PO LACY@159903/03/20 03/17/20 History Acetaminophen Tab [Tylenol] 650 mg PO Q6HR PRN tab 03/09/20 03/17/20 Rx oxyCODONE-APAP 5-325MG [Percocet 1 each PO Q4HR PRN tab 03/09/20 03/17/20 Rx 5-325 mg] Clotrimazole/Betamethasone Dip 1 applic TOPICAL BID 03/17/20 03/17/20 History [Lotrisone Cream] Furosemide [Lasix] 40 mg PO DAILY@0703/17/20 03/17/20 History Magnesium Oxide [Mag-Ox] 400 mg PO DAILY@0703/17/20 03/17/20 History Metoprolol Succinate (ER) [Toprol 50 mg PO DAILY@0703/17/20 03/17/20 History XL] Pantoprazole [Protonix] 40 mg PO DAILY@59903/17/20 03/17/20 History Tamsulosin [Flomax] 0.4 mg PO DAILY@199903/17/20 03/17/20 History Allergies Allergy/AdvReac Type Severity Reaction Status Date / Time amoxicillin Allergy Rash/Hives Verified 03/17/20 16:14 Penicillins Allergy Rash/Hives Verified 03/17/20 16:14 Physical Exam Vitals: Vital Signs Temp Pulse Pulse Resp BP BP Pulse Ox 03/18/20 08:00 97.5 F L 61 20 101/68 95 03/18/20 05:08 97.9 F 84 20 92/50 99 03/18/20 00:11 98.0 F 71 20 90/52 97 03/17/20 19:50 18 03/17/20 19:35 98.0 F 70 16 100/50 97 03/17/20 17:33 90/50 03/17/20 17:21 93/48 03/17/20 17:13 75 18 86/63 96 03/17/20 15:57 80 18 105/52 96 03/17/20 14:25 61 18 84/45 96 03/17/20 13:06 97.5 F L 65 18 83/41 96 Intake and Output 03/17/20 03/18/20 03/18/20 23:59 06:59 14:59 Intake Total 118 Output Total Balance 118 Intake: Oral 118 Output: Urine Other: Voiding Method Indwelling Catheter Weight Results 03/18/20 07:19 03/18/20 07:20 Cardiac Enzymes 03/17/20 03/18/20 Range/Units 14:27 07:20 AST 33 31 (17-59) U/L Coagulation 03/17/20 03/18/20 Range/Units 14:27 07:08 PT >130.0 H 92.9 H (9.0-12.0) sec APTT 80.7 H (22.0-30.0) sec CBC 03/17/20 03/18/20 Range/Units 14:27 07:19 WBC 11.3 H 10.2 (3.8-10.6) k/uL RBC 3.37 L 3.06 L (4.30-5.90) m/uL Hgb 11.1 L 9.9 L (13.0-17.5) gm/dL Hct 34.1 L 31.8 L (39.0-53.0) % Plt Count 279 282 (150-450) k/uL Comprehensive Metabolic Panel 03/17/20 03/18/20 Range/Units 14:27 07:20 Sodium 134 L 134 L (137-145) mmol/L Potassium 5.6 H 5.7 H (3.5-5.1) mmol/L Chloride 104 105 (98-107) mmol/L Carbon Dioxide 25 25 (22-30) mmol/L BUN 77 H 83 H (9-20) mg/dL Creatinine 3.07 H 2.97 H (0.66-1.25) mg/dL Glucose 129 H 109 H (74-99) mg/dL Calcium 8.4 7.7 L (8.4-10.2) mg/dL AST 33 31 (17-59) U/L ALT 22 20 (4-49) U/L Alkaline Phosphatase 109 92 (38-126) U/L Total Protein 6.3 5.2 L (6.3-8.2) g/dL Albumin 3.1 L 2.5 L (3.5-5.0) g/dL Current Medications Generic Name Dose Route Start Last Admin Trade Name Freq PRN Reason Stop Dose Admin Acetaminophen 650 mg 03/17/20 16:57 Acetaminophen Tab 325 Mg Tab PO Q6HR PRN Mild Pain or Fever > 100.5 Albuterol Sulfate 2.5 mg 03/17/20 16:57 Albuterol Nebulized 2.5 Mg/3 Ml INHALATION RT-Q4H PRN Shortness Of Breath Atorvastatin Calcium 10 mg 03/17/20 20:00 03/17/20 21:54 Atorvastatin 10 Mg Tab PO 10 mg HS@1999 PAU Administration Betamethasone/Clotrimazole 1 applic 03/17/20 21:00 03/18/20 09:45 Clotrimazole/Betameth 1-0.05% Cream 45 Gm Tube TOPICAL 1 applic BID PAU Administration Budesonide/Formoterol Fumarate 2 puff 03/18/20 08:00 03/18/20 08:54 Symbicort 160-4.5 Mcg Inhaler INHALATION 2 puff RT-BID@0800,1600 PAU Administration Cholecalciferol 2,000 unit 03/18/20 07:00 03/18/20 06:31 Cholecalciferol 1,000 Unit Tab PO 2,000 unit DAILY@0700 PAU Administration Donepezil HCl 10 mg 03/17/20 20:00 03/17/20 21:54 Donepezil 10 Mg Tab PO 10 mg DAILY@1999 PAU Administration Ferrous Sulfate 325 mg 03/18/20 07:00 03/18/20 06:31 Ferrous Sulfate 325 Mg Tab PO 325 mg DAILY@0700 PAU Administration Sodium Chloride 1,000 mls @ 50 mls/hr 03/17/20 21:45 Saline 0.9% IV .Q20H PAU Ceftriaxone Sodium 1 gm/ 50 mls @ 100 mls/hr 03/18/20 09:00 03/18/20 09:45 Sodium Chloride IVPB 100 mls/hr Q24HR PAU Administration Levofloxacin 500 mg/ IV 100 mls @ 100 mls/hr 03/18/20 12:00 Solution IVPB 03/18/20 12:59 ONCE ONE Levofloxacin/Dextrose 250 mg/ 50 mls @ 50 mls/hr 03/19/20 12:00 IV Solution IVPB Q24H PAU Magnesium Oxide 400 mg 03/18/20 07:00 03/18/20 06:31 Magnesium Oxide 400 Mg Tab PO 400 mg DAILY@0700 PAU Administration Memantine 5 mg 03/18/20 21:00 Memantine 5 Mg Tab PO BID PAU Metoprolol Succinate 50 mg 03/18/20 07:00 03/18/20 06:31 Metoprolol Succinate (Er) 50 Mg Tab.Er.24h PO 50 mg DAILY@0700 PAU Administration Naloxone HCl 0.2 mg 03/17/20 16:54 Naloxone 0.4 Mg/Ml 1 Ml Vial IV Q2M PRN Opioid Reversal Oxycodone/Acetaminophen 1 each 03/17/20 16:57 Oxycodone-Apap 5-325mg 1 Each Tab PO Q4HR PRN Severe Pain Pantoprazole Sodium 40 mg 03/18/20 06:00 03/18/20 06:31 Pantoprazole 40 Mg Tablet PO 40 mg DAILY@0600 PAU Administration Tamsulosin HCl 0.4 mg 03/17/20 20:00 03/17/20 21:54 Tamsulosin 0.4 Mg Cap.Er.24h PO 0.4 mg DAILY@2000 PAU Administration Intake and Output 03/17/20 03/18/20 03/18/20 23:59 06:59 14:59 Intake Total 118 Output Total Balance 118 Intake: Oral 118 Output: Urine Other: Voiding Method Indwelling Catheter Weight 03/18/20 07:19 03/18/20 07:20
[2020-03-18] MEDS ORDERED: SODIUM CHLORIDE 0.9% 500 ML 500 ML IV ONE (12:37)
--- NOTE | 2020-03-18 14:31 | P.GSCN ---
History of Present Illness Consult date: 03/18/20 Reason for Consult: Penile erosion Requesting physician: Gina Velasco History of present illness: The patient is a 74-year-old male who presented with gross hematuria in 2018. A CT scan showed a 1 cm left renal lesion, as well as perivesical fat stranding. Urine cytology was positive. Cystoscopy showed several anterior bladder wall tumors, and the largest tumor arose from the vesical neck and prostatic urethra. 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 Re-resection showed no evidence of malignancy. He was treated with induction intravesical BCG, followed by maintenance BCG, and has had no recurrences. However, he last received BCG on 07/13/2019 and has not been seen since that time. He was scheduled to undergo repeat cystoscopy in August but failed to keep that appointment due to Covid-19. The patient recently fell at home and was subsequently hospitalized. Although there was no evidence of a fracture, he experienced significant pain and is now undergoing inpatient rehab at [facility]. During that hospitalization, he was found to have a postvoid residual of 200 mL. A Clinton catheter was inserted and remains in place. Ultrasound during that hospitalization showed no evidence of hydronephrosis. He is currently receiving tamsulosin. He has been noted to have ventral erosion of the phallus. Review of Systems - Constitutional Denies chills, Denies fever - Cardiovascular Denies chest pain - Respiratory Denies dyspnea - Gastrointestinal Denies abdominal pain - Genitourinary Reports as per HPI Past Medical History Past Medical History: Atrial Fibrillation, Heart Failure, COPD, Dementia, Hypertension, Myocardial Infarction ([place]), Osteoarthritis (OA), Sleep Apnea/CPAP/BIPAP Additional Past Medical History / Comment(s): uses cpap, abdominal hernia, lupe leg venous stasis. exposure agent orange, high ammonia Last Myocardial Infarction Date:: unsure History of Any Multi-Drug Resistant Organisms: MRSA Year Discovered:: 12/10/18 MDRO Source:: Urine Past Surgical History: Cholecystectomy, Hernia Repair, Joint Replacement, Pacemaker Additional Past Surgical History / Comment(s): heart valve replacement, Bilat cataract surgery, left knee replacement. hernia surgery Past Anesthesia/Blood Transfusion Reactions: No Reported Reaction Type of Cardiac Device: Permanent Pacemaker Device Placement Date:: 2016 Past Psychological History: Anxiety Additional Psychological History / Comment(s): dementia Smoking Status: Never smoker Past Alcohol Use History: None Reported Additional Past Alcohol Use History / Comment(s): starting smoking age 21, 2ppd quit 2009 Past Drug Use History: None Reported - Past Family History Mother Family Medical History: Cancer Additional Family Medical History / Comment(s): breast cancer Sister(s) Family Medical History: Cancer, Myocardial Infarction ([place]) Father Family Medical History: Myocardial Infarction ([place]) Medications and Allergies Home Medications Medication Instructions Recorded Confirmed Type Cholecalciferol [Vitamin D3 (25 2,000 unit PO DAILY@0700 04/19/17 03/17/20 History Mcg = 1000 Iu)] Donepezil [Aricept] 10 mg PO DAILY@199904/19/17 03/17/20 History Ferrous Sulfate [Iron (65 MG 325 mg PO DAILY@0700 04/19/17 03/17/20 History Elemental)] Memantine HCl [Namenda Xr] 28 mg PO DAILY@1200 04/19/17 03/17/20 History Warfarin [Coumadin] 10 mg PO MOTUWETHFRSA@1600 04/19/17 03/17/20 History Albuterol Sulfate [Proventil Hfa] 1 puff INHALATION RT-Q4H PRN 11/10/18 03/17/20 History Atorvastatin Calcium [Lipitor] 10 mg PO HS@199911/10/18 03/17/20 History Budesonide/Formoterol Fumarate 2 puff INHALATION RT-BID@0800,1600 11/10/18 03/17/20 History [Symbicort 160-4.5 Mcg Inhaler] Warfarin Sodium 5 mg PO LACY@159903/03/20 03/17/20 History Acetaminophen Tab [Tylenol] 650 mg PO Q6HR PRN tab 03/09/20 03/17/20 Rx oxyCODONE-APAP 5-325MG [Percocet 1 each PO Q4HR PRN tab 03/09/20 03/17/20 Rx 5-325 mg] Clotrimazole/Betamethasone Dip 1 applic TOPICAL BID 03/17/20 03/17/20 History [Lotrisone Cream] Furosemide [Lasix] 40 mg PO DAILY@0700 03/17/20 03/17/20 History Magnesium Oxide [Mag-Ox] 400 mg PO DAILY@0700 03/17/2003/17/20 History Metoprolol Succinate (ER) [Toprol 50 mg PO DAILY@0703/17/20 03/17/20 History XL] Pantoprazole [Protonix] 40 mg PO DAILY@0603/17/20 03/17/20 History Tamsulosin [Flomax] 0.4 mg PO DAILY@199903/17/20 03/17/20 History Allergies Allergy/AdvReac Type Severity Reaction Status Date / Time amoxicillin Allergy Rash/Hives Verified 03/17/20 16:14 Penicillins Allergy Rash/Hives Verified 03/17/20 16:14 Surgical - Exam Vital Signs Temp Pulse Resp BP Pulse Ox 97.5 F L 65 18 83/41 96 03/17/20 13:06 03/17/20 13:06 03/17/20 13:06 03/17/20 13:06 03/17/20 13:06 - General well developed, well nourished, no distress - Respiratory normal respiratory effort - Abdomen Abdomen: soft, non tender, no guarding, no rigid, no rebound - Genitourinary other (Ventral erosion of the penis is noted. A Clinton catheter is in place. The scrotum and testes are normal. ) - Psychiatric oriented to time, oriented to person, oriented to place, speech is normal, memory intact Results - Labs 03/18/20 07:19 03/18/20 07:20 Abnormal Lab Results - Last 24 Hours (Table) 03/17/20 03/17/20 03/17/20 Range/Units 14:27 14:27 14:27 WBC 11.3 H (3.8-10.6) k/uL RBC 3.37 L (4.30-5.90) m/uL Hgb 11.1 L (13.0-17.5) gm/dL Hct 34.1 L (39.0-53.0) % MCV 101.2 H (80.0-100.0) fL Neutrophils # 9.5 H (1.3-7.7) k/uL Lymphocytes # 0.8 L (1.0-4.8) k/uL PT >130.0 H (9.0-12.0) sec INR >10.0 H* (<1.2) APTT 80.7 H (22.0-30.0) sec Sodium (137-145) mmol/L Potassium (3.5-5.1) mmol/L BUN (9-20) mg/dL Creatinine (0.66-1.25) mg/dL Glucose (74-99) mg/dL Albumin (3.5-5.0) g/dL Urine Protein 1+ H (Negative) Urine Blood Moderate H (Negative) Ur Leukocyte Esterase Large H (Negative) Urine RBC 21 H (0-5) /hpf Urine WBC 88 H (0-5) /hpf Urine WBC Clumps Few H (None) /hpf Urine Bacteria Occasional H (None) /hpf Hyaline Casts 10 H (0-2) /lpf Urine Mucus Rare H (None) /hpf 03/17/20 Range/Units 14:27 WBC (3.8-10.6) k/uL RBC (4.30-5.90) m/uL Hgb (13.0-17.5) gm/dL Hct (39.0-53.0) % MCV (80.0-100.0) fL Neutrophils # (1.3-7.7) k/uL Lymphocytes # (1.0-4.8) k/uL PT (9.0-12.0) sec INR (<1.2) APTT (22.0-30.0) sec Sodium 134 L (137-145) mmol/L Potassium 5.6 H (3.5-5.1) mmol/L BUN 77 H (9-20) mg/dL Creatinine 3.07 H (0.66-1.25) mg/dL Glucose 129 H (74-99) mg/dL Albumin 3.1 L (3.5-5.0) g/dL Urine Protein (Negative) Urine Blood (Negative) Ur Leukocyte Esterase (Negative) Urine RBC (0-5) /hpf Urine WBC (0-5) /hpf Urine WBC Clumps (None) /hpf Urine Bacteria (None) /hpf Hyaline Casts (0-2) /lpf Urine Mucus (None) /hpf Microbiology - Last 24 Hours (Table) 03/17/20 14:27 Urine Culture - Preliminary Urine,Voided Diabetes panel 03/17/20 Range/Units 14:27 Sodium 134 L (137-145) mmol/L Potassium 5.6 H (3.5-5.1) mmol/L Chloride 104 (98-107) mmol/L Carbon Dioxide 25 (22-30) mmol/L BUN 77 H (9-20) mg/dL Creatinine 3.07 H (0.66-1.25) mg/dL Glucose 129 H (74-99) mg/dL Calcium 8.4 (8.4-10.2) mg/dL AST 33 (17-59) U/L ALT 22 (4-49) U/L Alkaline Phosphatase 109 (38-126) U/L Total Protein 6.3 (6.3-8.2) g/dL Albumin 3.1 L (3.5-5.0) g/dL Calcium panel 03/17/20 Range/Units 14:27 Calcium 8.4 (8.4-10.2) mg/dL Albumin 3.1 L (3.5-5.0) g/dL Pituitary panel 03/17/20 Range/Units 14:27 Sodium 134 L (137-145) mmol/L Potassium 5.6 H (3.5-5.1) mmol/L Chloride 104 (98-107) mmol/L Carbon Dioxide 25 (22-30) mmol/L BUN 77 H (9-20) mg/dL Creatinine 3.07 H (0.66-1.25) mg/dL Glucose 129 H (74-99) mg/dL Calcium 8.4 (8.4-10.2) mg/dL Adrenal panel 03/17/20 Range/Units 14:27 Sodium 134 L (137-145) mmol/L Potassium 5.6 H (3.5-5.1) mmol/L Chloride 104 (98-107) mmol/L Carbon Dioxide 25 (22-30) mmol/L BUN 77 H (9-20) mg/dL Creatinine 3.07 H (0.66-1.25) mg/dL Glucose 129 H (74-99) mg/dL Calcium 8.4 (8.4-10.2) mg/dL Total Bilirubin 1.0 (0.2-1.3) mg/dL AST 33 (17-59) U/L ALT 22 (4-49) U/L Alkaline Phosphatase 109 (38-126) U/L Total Protein 6.3 (6.3-8.2) g/dL Albumin 3.1 L (3.5-5.0) g/dL - Imaging US - kidney/bladder: report reviewed Assessment and Plan (1) Incomplete bladder emptying Current Visit: Yes Status: Acute Code(s): R33.9 - RETENTION OF URINE, UNSPECIFIED SNOMED Code(s): 999114752 (2) Penile erosion Current Visit: Yes Status: Acute Code(s): N48.89 - OTHER SPECIFIED DISORDERS OF PENIS SNOMED Code(s): 24043768 Plan: Continue tamsulosin. The Clinton catheter will be removed for a voiding trial. Unless the patient has unacceptably high postvoid residuals, the catheter will be left out. I explained to the patient and his that the penile erosion cannot be treated, but leaving the catheter should prevent it from worsening. I have suggested she contact our office to reschedule office cystoscopy once the patient's condition allows.
--- NOTE | 2020-03-18 15:15 | P.CNPUL ---
History of Present Illness Consult date: 03/18/20 History of present illness: 72-year-old male patient who was sent over to the hospital from an extended care facility due to concern of a infection of his penis/scrotum. He is a [facility] resident with a rash in his groin area eroding into his foreskin. The patient was in the hospital last month for a fall at home and during the hospital stay had developed urinary retention. He was seen by urology. He is known to have bladder cancer. The patient has a chronically indwelling Clinton catheter which was placed a week ago. He was started on Flomax to be followed up by urology on outpatient basis. He is not a good historian due to his underlying dementia. At a time of arrival, the patient was afebrile and had a blood pressure with a systolic being in the mid 90s. His creatinine was at 3.07 at a time of admission. He was given IV fluids with normal state rate of 50 mL an hour. He was started on IV antibiotics. Cultures still pending for now. Meanwhile, he was also found to be toxic and supratherapeutic on his INR with a level being more than 10 and the patient was given vitamin K. Hemoglobin was stable at 9.9. In regards to his potassium level of 5.7, he was given a dose of Kayexalate. The patient is known to have multiple medical problems and comorbidities. He had COPD, dementia, hypertension, obstructive sleep apnea, chronic atrial fi brillation, and he has a pacemaker in place. The pacemaker was placed several years back for a symptomatic bradycardia and atrial fibrillation. The patient is known to have a prosthetic aortic valve and he has undergone previous aortic valve replacement. Review of Systems ROS unobtainable: due to mental status Past Medical History Past Medical History: Atrial Fibrillation, Heart Failure, COPD, Dementia, Hypertension, Myocardial Infarction ([place]), Osteoarthritis (OA), Sleep Apnea/CPAP/BIPAP Additional Past Medical History / Comment(s): Dementia, COPD, history of aortic valve replacement, history of atrial fibrillation, history of symptomatic bradycardia requiring a pacemaker insertion, hypertension, osteoarthritis, obstructive sleep apnea, urinary retention currently has an indwelling Clinton catheter in place, exposure to agent orange Last Myocardial Infarction Date:: unsure History of Any Multi-Drug Resistant Organisms: MRSA Date of last positivie culture/infection: 12/10/18 MDRO Source:: Urine Past Surgical History: Cholecystectomy, Hernia Repair, Joint Replacement, Pacemaker Additional Past Surgical History / Comment(s): Aortic valve replacement, Bilat cataract surgery, left knee replacement. hernia surgery Past Anesthesia/Blood Transfusion Reactions: No Reported Reaction Type of Cardiac Device: Permanent Pacemaker Device Placement Date:: 2016 Past Psychological History: Anxiety Additional Psychological History / Comment(s): dementia Smoking Status: Never smoker Past Alcohol Use History: None Reported Additional Past Alcohol Use History / Comment(s): starting smoking age 21, 2ppd quit 2009 Past Drug Use History: None Reported - Past Family History Mother Family Medical History: Cancer Additional Family Medical History / Comment(s): breast cancer Sister(s) Family Medical History: Cancer, Myocardial Infarction ([place]) Father Family Medical History: Myocardial Infarction ([place]) Medications and Allergies Home Medications Medication Instructions Recorded Confirmed Type Cholecalciferol [Vitamin D3 (25 2,000 unit PO DAILY@0700 04/19/17 03/17/20 History Mcg = 1000 Iu)] Donepezil [Aricept] 10 mg PO DAILY@199904/19/17 03/17/20 History Ferrous Sulfate [Iron (65 MG 325 mg PO DAILY@0700 04/19/17 03/17/20 History Elemental)] Memantine HCl [Namenda Xr] 28 mg PO DAILY@1200 04/19/17 03/17/20 History Warfarin [Coumadin] 10 mg PO MOTUWETHFRSA@159904/19/17 03/17/20 History Albuterol Sulfate [Proventil Hfa] 1 puff INHALATION RT-Q4H PRN 11/10/18 03/17/20 History Atorvastatin Calcium [Lipitor] 10 mg PO HS@199911/10/18 03/17/20 History Budesonide/Formoterol Fumarate 2 puff INHALATION RT-BID@0800,1600 11/10/18 03/17/20 History [Symbicort 160-4.5 Mcg Inhaler] Warfarin Sodium 5 mg PO LACY@159903/03/20 03/17/20 History Acetaminophen Tab [Tylenol] 650 mg PO Q6HR PRN tab 03/09/20 03/17/20 Rx oxyCODONE-APAP 5-325MG [Percocet 1 each PO Q4HR PRN tab 03/09/20 03/17/20 Rx 5-325 mg] Clotrimazole/Betamethasone Dip 1 applic TOPICAL BID 03/17/20 03/17/20 History [Lotrisone Cream] Furosemide [Lasix] 40 mg PO DAILY@0700 03/17/20 03/17/20 History Magnesium Oxide [Mag-Ox] 400 mg PO DAILY@0700 03/17/20 03/17/20 History Metoprolol Succinate (ER) [Toprol 50 mg PO DAILY@0700 03/17/20 03/17/20 History XL] Pantoprazole [Protonix] 40 mg PO DAILY@0603/17/20 03/17/20 History Tamsulosin [Flomax] 0.4 mg PO DAILY@199903/17/20 03/17/20 History Allergies Allergy/AdvReac Type Severity Reaction Status Date / Time amoxicillin Allergy Rash/Hives Verified 03/17/20 16:14 Penicillins Allergy Rash/Hives Verified 03/17/20 16:14 Physical Exam Vitals: Vital Signs Temp Pulse Pulse Resp BP BP Pulse Ox 03/18/20 12:15 97.5 F L 60 20 90/59 94 L 03/18/20 08:00 97.5 F L 61 20 101/68 95 03/18/20 05:08 97.9 F 84 20 92/50 99 03/18/20 00:11 98.0 F 71 20 90/52 97 03/17/20 19:50 18 03/17/20 19:35 98.0 F 70 16 100/50 97 03/17/20 17:33 90/50 03/17/20 17:21 93/48 03/17/20 17:13 75 18 86/63 96 03/17/20 15:57 80 18 105/52 96 Intake and Output 03/17/20 03/18/20 03/18/20 23:59 06:59 14:59 Intake Total 118 Output Total Balance 118 Intake: Oral 118 Output: Urine Other: Voiding Method Indwelling Catheter Weight PHYSICAL EXAMINATION: This is a 74-year-old obese male in no apparent distress a t the time of my examination. Head exam was generally normal. There was no scleral icterus or corneal arcus. Mucous membranes were moist. HEENT: Head is atraumatic, normocephalic. Pupils are equal, round. Sclerae anicteric. Conjunctivae are clear. Mucous membranes of the mouth are moist. Neck is supple. There is no jugular venous distention. No carotid bruit is heard. CHEST EXAMINATION: Lungs are clear to auscultation. Diminished in the bases. No chest wall tenderness is noted on palpation or with deep breathing. HEART EXAMINATION: Heart regular rate and rhythm. S1, S2 heard. No murmurs, g allops or rub. ABDOMEN: Soft, nontender. Bowel sounds are heard. No organomegaly noted. EXTREMITIES: 2+ peripheral edema. Diffuse bruising. no calf tenderness noted. The patient has significant erythema and purulent discharge from the tip of the penis. The erythema has extended hours the scrotum and the inguinal folds bilaterally. Some of the erythema is also extended hours the suprapubic area. No gas formation. There is obvious to her discharge from the tip of the penis and the Clinton catheter is in place. No skin necrosis. NEUROLOGIC EXAMINATION: Patient is awake, alert and oriented x1. Results - Laboratory Findings CBC and BMP: 03/18/20 07:19 03/18/20 07:20 PT/INR, D-dimer PT 92.9 sec (9.0-12.0) H 03/18/20 07:08 INR 8.9 (<1.2) H* 03/18/20 07:08 Abnormal lab findings: Abnormal Labs 03/17/20 03/17/20 03/17/20 14:27 14:27 14:27 WBC 11.3 H RBC 3.37 L Hgb 11.1 L Hct 34.1 L MCV 101.2 H Neutrophils # 9.5 H Lymphocytes # 0.8 L PT >130.0 H INR >10.0 H* APTT 80.7 H Sodium Potassium BUN Creatinine Glucose Calcium Total Protein Albumin Urine Protein 1+ H Urine Blood Moderate H Ur Leukocyte Esterase Large H Urine RBC 21 H Urine WBC 88 H Urine WBC Clumps Few H Urine Bacteria Occasional H Hyaline Casts 10 H Urine Mucus Rare H 03/17/20 03/18/20 03/18/20 14:27 07:08 07:19 WBC RBC 3.06 L Hgb 9.9 L Hct 31.8 L MCV 103.9 H Neutrophils # 8.7 H Lymphocytes # 0.6 L PT 92.9 H INR 8.9 H* APTT Sodium 134 L Potassium 5.6 H BUN 77 H Creatinine 3.07 H Glucose 129 H Calcium Total Protein Albumin 3.1 L Urine Protein Urine Blood Ur Leukocyte Esterase Urine RBC Urine WBC Urine WBC Clumps Urine Bacteria Hyaline Casts Urine Mucus 03/18/20 07:20 WBC RBC Hgb Hct MCV Neutrophils # Lymphocytes # PT INR APTT Sodium 134 L Potassium 5.7 H BUN 83 H Creatinine 2.97 H Glucose 109 H Calcium 7.7 L Total Protein 5.2 L Albumin 2.5 L Urine Protein Urine Blood Ur Leukocyte Esterase Urine RBC Urine WBC Urine WBC Clumps Urine Bacteria Hyaline Casts Urine Mucus - Diagnostic Findings Chest x-ray: image reviewed Assessment and Plan Plan: 1 Penile erosion secondary to catheter with suspected infection with secondary cellulitis, questionable early necrotizing fasciitis of the scrotal and the groin area. Also, there may be also a suspicion for underlying urine checked infection. 2 acute kidney injury with secondary hyperkalemia 3 obstructive uropathy with a indwelling Clinton catheter in place 4 advanced dementia with impairment in cognitive functions 5 chronic atrial fibrillation with a supratherapeutic PT/INR while on Coumadin 6 history of aortic valve replacement 7 supratherapeutic PT/INR without evidence of an acute bleed 8 hypertension 9 obstructive sleep apnea. 10 history of pacemaker insertion for symptomatically bradycardia 11 COPD currently on room air oxygen with a pulse ox of 94% 12 chronic anemia 13 hyperlipidemia 14 history of previous CVA with expressive aphasia 15 BPH Plan Immediate urology evaluation Stop the Rocephin and the Levaquin and cover the patient with a combination of cefepime and clindamycin and daptomycin. I'm also going to add Diflucan regarding the possibility of groin infection with Deepa. Obtain urine cultures Obtain blood cultures Clinton catheter may be due to be replaced and this will be left up to urology Reverse coagulopathy and the patient was given 10 of vitamin K and repeat the PT/INR Overall pulmonary status is stable We'll continue to follow
[2020-03-18] MEDS ORDERED: DAPTOmycin 500 MG in SODIUM CHLORIDE 0.9% 50 ML IVPB SCH (16:00)
[2020-03-18 17:14] LABS: Glucose,Whole Blood 157 mg/dL (75-99)
[2020-03-18] MEDS ORDERED: SODIUM BICARB 8.4% 50 ML SYR (1 MEQ/ML) IV STA (17:17)
[2020-03-18] MEDS: CLINDAMYCIN 600 MG in DEXTROSE 5% IN WATER 50 ML IVPB SCH ×2 (17:49)
[2020-03-18] MEDS: MIDODRINE 5 MG TAB PO SCH (18:00)
[2020-03-18 20:38] LABS: Glucose,Whole Blood 140 mg/dL (75-99)
[2020-03-18] MEDS: CEFEPIME 1 GM in SODIUM CHLORIDE 0.9% 50 ML IVPB SCH (22:10)
[2020-03-18] MEDS: MEMANTINE 5 MG TAB PO SCH (22:10)
[2020-03-18] MEDS: ATORVASTATIN 10 MG TAB PO SCH (22:12)
[2020-03-18] MEDS: DONEPEZIL 10 MG TAB PO SCH (22:12)
[2020-03-18] MEDS: TAMSULOSIN 0.4 MG CAP.ER.24H PO SCH (22:12)
[2020-03-18] MEDS: FLUCONAZOLE 100 MG TAB PO SCH (22:12)
[2020-03-18 23:08] LABS: Calcium 8.1 mg/dL (8.4-10.2); Potassium 5.9 mmol/L (3.5-5.1)
[2020-03-19] MEDS ORDERED: FUROSEMIDE 10 MG/ML 2 ML VIAL IV ONE (01:00)
[2020-03-19] MEDS: CLINDAMYCIN 600 MG in DEXTROSE 5% IN WATER 50 ML IVPB SCH ×4 (01:22→10:03)
[2020-03-19 06:09] LABS: Glucose,Whole Blood 126 mg/dL (75-99)
[2020-03-19 06:43] LABS: Basophils # (A) 0.1 k/uL (0-0.2); Basophils % (A) 1 %; Eosinophils # (A) 0.1 k/uL (0-0.7); Eosinophils % (A) 1 %; HCT 32.5 % (39.0-53.0); HGB 10.3 gm/dL (13.0-17.5); Hypochromasia Moderate; Lymphocytes # (A) 0.5 k/uL (1.0-4.8); Lymphocytes % (A) 6 %; MCH 33.1 pg (25.0-35.0); MCHC 31.7 g/dL (31.0-37.0); MCV 104.6 fL (80.0-100.0); Macrocytosis Moderate; Mean Platelet Volume 7.5; Monocytes # (A) 0.5 k/uL (0-1.0); Monocytes % (A) 5 %; Neutrophils # (A) 7.7 k/uL (1.3-7.7); Neutrophils % (A) 87 %; Platelet Count 252 k/uL (150-450); RDW 14.6 % (11.5-15.5); WBC 8.9 k/uL (3.8-10.6)
[2020-03-19] MEDS: MIDODRINE 5 MG TAB PO SCH ×3 (06:47→18:19)
[2020-03-19] MEDS: MAGNESIUM OXIDE 400 MG TAB PO SCH (06:47)
[2020-03-19] MEDS: FERROUS SULFATE 325 MG TAB PO SCH (06:47)
[2020-03-19] MEDS: METOPROLOL SUCCINATE (ER) 50 MG TAB.ER.24H PO SCH (06:47)
[2020-03-19 06:53] LABS: Albumin 2.7 g/dL (3.5-5.0); Calcium 8.3 mg/dL (8.4-10.2); Magnesium 2.7 mg/dL (1.6-2.3); Potassium 5.7 mmol/L (3.5-5.1); Total Bilirubin 0.8 mg/dL (0.2-1.3); Total Protein 5.4 g/dL (6.3-8.2)
[2020-03-19] MEDS: SYMBICORT 160-4.5 MCG INHALER INHALATION SCH ×2 (08:24→21:52)
[2020-03-19] MEDS: SODIUM CHLORIDE 0.9% 1,000 ML IV SCH ×2 (08:52→15:49)
[2020-03-19] MEDS: FLUCONAZOLE 100 MG TAB PO SCH ×2 (09:21→21:09)
[2020-03-19] MEDS: CHOLECALCIFEROL 1,000 UNIT TAB PO SCH (09:21)
[2020-03-19] MEDS: MEMANTINE 5 MG TAB PO SCH ×2 (09:21→21:09)
[2020-03-19] MEDS: CLOTRIMAZOLE/BETAMETH 1-0.05% CREAM 45 GM TUBE TOPICAL SCH ×2 (09:22→21:09)
[2020-03-19] MEDS: PANTOPRAZOLE 40 MG TABLET PO SCH (09:24)
[2020-03-19] MEDS ORDERED: COSYNTROPIN 0.25 MG VIAL IVP ONE (10:00)
[2020-03-19] MEDS: CEFEPIME 1 GM in SODIUM CHLORIDE 0.9% 50 ML IVPB SCH ×2 (10:03→21:08)
--- NOTE | 2020-03-19 10:06 | P.PN ---
Subjective Patient is seen in follow-up for acute kidney injury. Renal function slightly better. Potassium level stable at 5.7 this morning. Urine output near 1 L overnight. Clinton catheter was removed this morning. Oral intake fair. No vomiting or diarrhea. Vital signs are stable. Blood pressure in the lower side. General: The patient appeared well nourished and normally developed. HEENT: Head exam is unremarkable. Neck is without jugular venous distension. LUNGS: Breath sounds decreased. HEART: Rate and Rhythm are regular. ABDOMEN: Soft, nontender. Obese. EXTREMITITES: Trace edema. Chronic skin changes noted. Objective - Vital Signs Vital signs: Vital Signs Temp 97.6 F 03/19/20 05:55 Pulse 70 03/19/20 05:55 Resp 18 03/19/20 05:55 BP 91/47 03/19/20 05:55 Pulse Ox 96 03/19/20 05:55 Intake & Output 03/18/20 03/19/20 03/19/20 18:59 06:59 18:59 Intake Total 598 300 Output Total 1275 200 Balance 598 -1275 100 Weight 161.025 kg 127 kg Intake: Oral 598 300 Output: Urine 1275 200 Coude 200 Other: Voiding Method Indwelling Catheter Indwelling Catheter # Bowel Movements 1 - Labs CBC & Chem 7: 03/19/20 05:49 03/19/20 05:49 Labs: Abnormal Lab Results - Last 24 Hours (Table) 03/18/20 03/18/20 03/18/20 Range/Units 15:15 17:05 17:43 RBC (4.30-5.90) m/uL Hgb (13.0-17.5) gm/dL Hct (39.0-53.0) % MCV (80.0-100.0) fL Lymphocytes # (1.0-4.8) k/uL Sodium (137-145) mmol/L Potassium 5.9 H (3.5-5.1) mmol/L BUN (9-20) mg/dL Creatinine (0.66-1.25) mg/dL Glucose (74-99) mg/dL POC Glucose (mg/dL) 157 H (75-99) mg/dL Calcium (8.4-10.2) mg/dL Magnesium (1.6-2.3) mg/dL Lactate Dehydrogenase 796 H (313-618) U/L Total Protein (6.3-8.2) g/dL Albumin (3.5-5.0) g/dL 03/18/20 03/18/20 03/19/20 Range/Units 20:37 22:26 05:49 RBC 3.10 L (4.30-5.90) m/uL Hgb 10.3 L (13.0-17.5) gm/dL Hct 32.5 L (39.0-53.0) % MCV 104.6 H (80.0-100.0) fL Lymphocytes # 0.5 L (1.0-4.8) k/uL Sodium 135 L (137-145) mmol/L Potassium 5.9 H (3.5-5.1) mmol/L BUN 90 H (9-20) mg/dL Creatinine 2.74 H (0.66-1.25) mg/dL Glucose 140 H (74-99) mg/dL POC Glucose (mg/dL) 140 H (75-99) mg/dL Calcium 8.1 L (8.4-10.2) mg/dL Magnesium (1.6-2.3) mg/dL Lactate Dehydrogenase (313-618) U/L Total Protein (6.3-8.2) g/dL Albumin (3.5-5.0) g/dL 03/19/20 03/19/20 Range/Units 05:49 06:07 RBC (4.30-5.90) m/uL Hgb (13.0-17.5) gm/dL Hct (39.0-53.0) % MCV (80.0-100.0) fL Lymphocytes # (1.0-4.8) k/uL Sodium 136 L (137-145) mmol/L Potassium 5.7 H (3.5-5.1) mmol/L BUN 91 H (9-20) mg/dL Creatinine 2.57 H (0.66-1.25) mg/dL Glucose 119 H (74-99) mg/dL POC Glucose (mg/dL) 126 H (75-99) mg/dL Calcium 8.3 L (8.4-10.2) mg/dL Magnesium 2.7 H (1.6-2.3) mg/dL Lactate Dehydrogenase (313-618) U/L Total Protein 5.4 L (6.3-8.2) g/dL Albumin 2.7 L (3.5-5.0) g/dL Microbiology - Last 24 Hours (Table) 03/17/20 20:27 Gram Stain - Preliminary Groin Wound Culture - Preliminary Gram Neg Bacilli Presumptive MRSA 03/17/20 14:48 Blood Culture Gram Stain - Preliminary Blood Blood Culture - Preliminary Staphylococcus aureus 03/17/20 14:27 Urine Culture - Preliminary Urine,Voided Gram Neg Bacilli 03/17/20 14:48 Blood Culture - Final Blood 03/17/20 14:48 Blood Culture - Preliminary Blood No Growth after 24 hours 03/17/20 22:09 Anaerobic Culture - Preliminary Penis Assessment and Plan Plan: Assessment: 1. Acute kidney injury secondary to ATN secondary to infection, diuresis and hypotension. Creatinine 3.07 on admission and is 2.57 today. Baseline creatinine near 1. Ultrasound from February 2020 revealed no evidence of hydronephrosis. 2. Hyperkalemia secondary to acute kidney injury. Stable. 3. Coagulopathy status post vitamin K. 4. History of bladder cancer. 5. History of urinary retention status post Clinton catheter placement. It was removed this morning. Urology following. 6. UTI and scrotal erythema and penile erosion. Urine culture pending. Currently on antibiotics. Urine culture positive for gram-negative bacilli. Blood culture positive for staph aureus. Wound culture positive for gram- negative bacilli and presumptive MRSA. 7. Hypotension. Cortisol level noted to be low. Maintained on midodrine. 8. Dementia. Plan: Lasix 20 mg IV once now. Low potassium diet. Follow-up cultures. Continue to monitor renal function and urine output. Perform cosyntropin stimulation test. Repeat potassium level this evening. Monitor bladder scans closely. Check urine eosinophils.
[2020-03-19] MEDS ORDERED: VANCOMYCIN IV PER PHARMACY 1 EACH MISC MISCELLANE PRN (10:41)
[2020-03-19 11:03] LABS: Prothrombin Time 61.8 sec (9.0-12.0)
[2020-03-19 11:10] LABS: INR 6.1 (<1.2)
[2020-03-19 11:39] LABS: Glucose,Whole Blood 129 mg/dL (75-99)
[2020-03-19] MEDS ORDERED: LEVOFLOXACIN 250MG-D5W PMX 250 MG in DEXTROSE/WATER 1 50ML.BAG IVPB SCH (12:00)
[2020-03-19] MEDS ORDERED: VANCOMYCIN 2,500 MG in SODIUM CHLORIDE 0.9% 500 ML 500 ML IVPB ONE (13:00)
--- NOTE | 2020-03-19 13:52 | P.CONS ---
History of Present Illness - Reason for Consult Consult date: 03/19/20 wound care - History of Present Illness this is a 74-year-old pleasant male being seen by the wound care center for nonhealing ulcerations of the left calcaneus and abdominal folds. Patient states that the ulceration started a few weeks ago. The ulceration to theleft medial calcaneus is related to pressure. Patient's past medical history significant for morbid obesity, atrial fibrillation, hypertension, heart failure, COPD, myocardial infarction, osteoarthritis, sleep apnea uses CPAP machine and bilateral venous stasis. Review of Systems Review Of Systems: Constitutional: No fever, no chills, no night sweats. No weight change. No weakness, fatigue or lethargy. No daytime sleepiness. Integumentary:reports wounds, no lesions. No rash or pruritus. No unusual bruising. No change in hair or nails. Past Medical History Past Medical History: Atrial Fibrillation, Heart Failure, COPD, Dementia, Hypertension, Myocardial Infarction ([place]), Osteoarthritis ([place]), Sleep Apnea/CPAP/BIPAP Additional Past Medical History / Comment(s): Dementia, COPD, history of aortic valve replacement, history of atrial fibrillation, history of symptomatic bradycardia requiring a pacemaker insertion, hypertension, osteoarthritis, obstructive sleep apnea, urinary retention currently has an indwelling Clinton ca theter in place, exposure to agent orange Last Myocardial Infarction Date:: unsure History of Any Multi-Drug Resistant Organisms: MRSA Year Discovered:: 12/10/18 MDRO Source:: Urine Past Surgical History: Cholecystectomy, Hernia Repair, Joint Replacement, Pacemaker Additional Past Surgical History / Comment(s): Aortic valve replacement, Bilat cataract surgery, left knee replacement. hernia surgery Past Anesthesia/Blood Transfusion Reactions: No Reported Reaction Type of Cardiac Device: Permanent Pacemaker Device Placement Date:: 2016 Past Psychological History: Anxiety Additional Psychological History / Comment(s): dementia Smoking Status: Never smoker Past Alcohol Use History: None Reported Additional Past Alcohol Use History / Comment(s): starting smoking age 21, 2ppd quit 2009 Past Drug Use History: None Reported - Past Family History Mother Family Medical History: Cancer Additional Family Medical History / Comment(s): breast cancer Sister(s) Family Medical History: Cancer, Myocardial Infarction ([place]) Father Family Medical History: Myocardial Infarction ([place]) Medications and Allergies Home Medications Medication Instructions Recorded Confirmed Type Cholecalciferol [Vitamin D3 (25 2,000 unit PO DAILY@0700 04/19/17 03/17/20 History Mcg = 1000 Iu)] Donepezil [Aricept] 10 mg PO DAILY@199904/19/17 03/17/20 History Ferrous Sulfate [Iron (65 MG 325 mg PO DAILY@0700 04/19/17 03/17/20 History Elemental)] Memantine HCl [Namenda Xr] 28 mg PO DAILY@119904/19/17 03/17/20 History Warfarin [Coumadin] 10 mg PO MOTUWETHFRSA@159904/19/17 03/17/20 History Albuterol Sulfate [Proventil Hfa] 1 puff INHALATION RT-Q4H PRN 11/10/18 03/17/20 History Atorvastatin Calcium [Lipitor] 10 mg PO HS@199911/10/18 03/17/20 History Budesonide/Formoterol Fumarate 2 puff INHALATION RT-BID@0800,1600 11/10/18 History [Symbicort 160-4.5 Mcg Inhaler] Warfarin Sodium 5 mg PO LACY@159903/03/20 03/17/20 History Acetaminophen Tab [Tylenol] 650 mg PO Q6HR PRN tab 03/09/20 03/17/20 Rx oxyCODONE-APAP 5-325MG [Percocet 1 each PO Q4HR PRN tab 03/09/20 03/17/20 Rx 5-325 mg] Clotrimazole/Betamethasone Dip 1 applic TOPICAL BID 03/17/20 03/17/20 History [Lotrisone Cream] Furosemide [Lasix] 40 mg PO DAILY@0703/17/20 03/17/20 History Magnesium Oxide [Mag-Ox] 400 mg PO DAILY@0703/17/20 03/17/20 History Metoprolol Succinate (ER) [Toprol 50 mg PO DAILY@69903/17/20 03/17/20 History XL] Pantoprazole [Protonix] 40 mg PO DAILY@0603/17/20 03/17/20 History Tamsulosin [Flomax] 0.4 mg PO DAILY@199903/17/20 03/17/20 History Allergies Allergy/AdvReac Type Severity Reaction Status Date / Time amoxicillin Allergy Rash/Hives Verified 03/17/20 16:14 Penicillins Allergy Rash/Hives Verified 03/17/20 16:14 Physical Exam Vitals: Vital Signs Temp Pulse Resp BP Pulse Ox 03/19/20 12:00 97.8 F 68 18 103/65 95 03/19/20 08:00 97.8 F 74 18 95/44 97 03/19/20 05:55 97.6 F 70 18 91/47 96 03/19/20 04:00 61 18 03/19/20 00:00 97.5 F L 61 18 98/63 95 03/18/20 20:00 97.4 F L 60 18 96/51 93 L 03/18/20 16:00 97.5 F L 60 18 93/60 97 Intake and Output 03/18/20 03/19/20 03/19/20 22:59 06:59 14:59 Intake Total 240 300 Output Total 400 875 200 Balance -160 -875 100 Intake: Oral 240 300 Output: Urine 400 875 200 Coude 200 Other: Voiding Method Indwelling Catheter Indwelling Catheter Indwelling Catheter # Bowel Movements 1 Weight 127 kg Physical exam: General Appearance: Alert, cooperative, no distress, appears stated age. Skin: bilateral abdominal. Multiple ulcerations Limited to skin breakdown of maceration excoriation. Left medial calcaneus ulcerations resulting from pressure with fat layer exposure. Minimal granulation seen a moderate slough noted. Serous drainage noted to the site. Wound edges attached to the wound base all other Skin color, texture, tugor normal, no rashes or lesions. Neurologic: Alert oriented x3 Results CBC & Chem 7: 03/19/20 05:49 03/19/20 05:49 Labs: Abnormal Lab Results - Last 24 Hours (Table) 03/18/20 03/18/20 03/18/20 Range/Units 15:15 17:05 17:43 RBC (4.30-5.90) m/uL Hgb (13.0-17.5) gm/dL Hct (39.0-53.0) % MCV (80.0-100.0) fL Lymphocytes # (1.0-4.8) k/uL PT (9.0-12.0) sec INR (<1.2) Sodium (137-145) mmol/L Potassium 5.9 H (3.5-5.1) mmol/L BUN (9-20) mg/dL Creatinine (0.66-1.25) mg/dL Glucose (74-99) mg/dL POC Glucose (mg/dL) 157 H (75-99) mg/dL Calcium (8.4-10.2) mg/dL Magnesium (1.6-2.3) mg/dL Lactate Dehydrogenase 796 H (313-618) U/L Total Protein (6.3-8.2) g/dL Albumin (3.5-5.0) g/dL 03/18/20 03/18/20 03/19/20 Range/Units 20:37 22:26 05:49 RBC 3.10 L (4.30-5.90) m/uL Hgb 10.3 L (13.0-17.5) gm/dL Hct 32.5 L (39.0-53.0) % MCV 104.6 H (80.0-100.0) fL Lymphocytes # 0.5 L (1.0-4.8) k/uL PT (9.0-12.0) sec INR (<1.2) Sodium 135 L (137-145) mmol/L Potassium 5.9 H (3.5-5.1) mmol/L BUN 90 H (9-20) mg/dL Creatinine 2.74 H (0.66-1.25) mg/dL Glucose 140 H (74-99) mg/dL POC Glucose (mg/dL) 140 H (75-99) mg/dL Calcium 8.1 L (8.4-10.2) mg/dL Magnesium (1.6-2.3) mg/dL Lactate Dehydrogenase (313-618) U/L Total Protein (6.3-8.2) g/dL Albumin (3.5-5.0) g/dL 03/19/20 03/19/20 03/19/20 Range/Units 05:49 06:07 10:27 RBC (4.30-5.90) m/uL Hgb (13.0-17.5) gm/dL Hct (39.0-53.0) % MCV (80.0-100.0) fL Lymphocytes # (1.0-4.8) k/uL PT 61.8 H (9.0-12.0) sec INR 6.1 H* (<1.2) Sodium 136 L (137-145) mmol/L Potassium 5.7 H (3.5-5.1) mmol/L BUN 91 H (9-20) mg/dL Creatinine 2.57 H (0.66-1.25) mg/dL Glucose 119 H (74-99) mg/dL POC Glucose (mg/dL) 126 H (75-99) mg/dL Calcium 8.3 L (8.4-10.2) mg/dL Magnesium 2.7 H (1.6-2.3) mg/dL Lactate Dehydrogenase (313-618) U/L Total Protein 5.4 L (6.3-8.2) g/dL Albumin 2.7 L (3.5-5.0) g/dL 03/19/20 Range/Units 11:37 RBC (4.30-5.90) m/uL Hgb (13.0-17.5) gm/dL Hct (39.0-53.0) % MCV (80.0-100.0) fL Lymphocytes # (1.0-4.8) k/uL PT (9.0-12.0) sec INR (<1.2) Sodium (137-145) mmol/L Potassium (3.5-5.1) mmol/L BUN (9-20) mg/dL Creatinine (0.66-1.25) mg/dL Glucose (74-99) mg/dL POC Glucose (mg/dL) 129 H (75-99) mg/dL Calcium (8.4-10.2) mg/dL Magnesium (1.6-2.3) mg/dL Lactate Dehydrogenase (313-618) U/L Total Protein (6.3-8.2) g/dL Albumin (3.5-5.0) g/dL Microbiology - Last 24 Hours (Table) 03/17/20 14:48 Blood Culture Gram Stain - Preliminary Blood Blood Culture - Preliminary Staphylococcus aureus 03/17/20 20:27 Gram Stain - Preliminary Groin Wound Culture - Preliminary Gram Neg Bacilli Presumptive MRSA 03/17/20 14:27 Urine Culture - Preliminary Urine,Voided Gram Neg Bacilli 03/17/20 14:48 Blood Culture - Final Blood 03/17/20 14:48 Blood Culture - Preliminary Blood No Growth after 24 hours 03/17/20 22:09 Anaerobic Culture - Preliminary Penis Assessment and Plan (1) Pressure ulcer of left heel, stage 2 Current Visit: Yes Status: Acute Code(s): L89.622 - PRESSURE ULCER OF LEFT HEEL, STAGE 2 SNOMED Code(s): 237884252 (2) Non-healing ulcer of multiple sites, limited to breakdown of skin Current Visit: No Status: Acute Code(s): L98.491 - NON-PRS CHRONIC ULCER SKIN/ SITES LIMITED TO BRKDWN SKIN SNOMED Code(s): 97469186 (3) Pressure ulcer of sacral region, stage 1 Current Visit: Yes Status: Acute Code(s): L89.151 - PRESSURE ULCER OF SACRAL REGION, STAGE 1 SNOMED Code(s): 654375489 Plan: Apply clotrimazole to skin folds daily. Applyhoney alginate, Sinemet gauze, dry gauze and rolled gauze secured with paper tape to the left calcaneus medial aspect. Sacral ulceration is a stage I pressure ulcer me utilize zinc barrier cream as needed and a foam dressing. At this time patient and are declining any wound care. Thank you for the consultation any questions please contact the wound care center. DNP note has been reviewed and discussed with Dr. Ma and the impression and plan of care has been directed as dictated.
--- NOTE | 2020-03-19 13:59 | P.PN ---
Subjective Progress Note Date: 03/19/20 HISTORY OF PRESENT ILLNESS: Patient examined this morning at the bedside. He denies chest pain or pressure. Denies shortness of breath. Blood pressure 103/65. Heart rate in the 60s and 70s. His Coumadin remains on hold. INR 6.1 today. PHYSICAL EXAM: VITAL SIGNS: Reviewed. GENERAL: Well-developed in no acute distress. NECK: Supple. No JVD or thyromegaly LUNGS: Respirations even and unlabored. Lungs diminished HEART: Irregular rate and rhythm. S1 and S2 heard. EXTREMITIES: Normal range of motion. No clubbing or cyanosis. Peripheral pulses intact. 2+ bilateral lower extremity edema ASSESSMENT: Penile erosion secondary to catheter with suspected infection Acute kidney injury Chronic persistent atrial fibrillation Supratherapeutic INR History of aortic valve replacement History of pacemaker insertion secondary to sick sinus syndrome PLAN: Continue to hold Coumadin Monitor INR Device interorrogation to be completed today Further recommendations pending patient course Nurse practitioner note has been reviewed by physician. Signing provider agrees with the documented findings, assessment, and plan of care. Objective - Vital Signs Vital signs: Vital Signs Temp 97.8 F 03/19/20 12:00 Pulse 68 03/19/20 12:00 Resp 18 03/19/20 12:00 BP 103/65 03/19/20 12:00 Pulse Ox 95 03/19/20 12:00 Intake & Output 03/18/20 03/19/20 03/19/20 18:59 06:59 18:59 Intake Total 598 300 Output Total 1275 200 Balance 598 -1275 100 Weight 161.025 kg 127 kg Intake: Oral 598 300 Output: Urine 1275 200 Coude 200 Other: Voiding Method Indwelling Catheter Indwelling Catheter Indwelling Catheter # Bowel Movements 1 - Labs CBC & Chem 7: 03/19/20 05:49 03/19/20 05:49 Labs: Abnormal Lab Results - Last 24 Hours (Table) 03/18/20 03/18/20 03/18/20 Range/Units 15:15 17:05 17:43 RBC (4.30-5.90) m/uL Hgb (13.0-17.5) gm/dL Hct (39.0-53.0) % MCV (80.0-100.0) fL Lymphocytes # (1.0-4.8) k/uL PT (9.0-12.0) sec INR (<1.2) Sodium (137-145) mmol/L Potassium 5.9 H (3.5-5.1) mmol/L BUN (9-20) mg/dL Creatinine (0.66-1.25) mg/dL Glucose (74-99) mg/dL POC Glucose (mg/dL) 157 H (75-99) mg/dL Calcium (8.4-10.2) mg/dL Magnesium (1.6-2.3) mg/dL Lactate Dehydrogenase 796 H (313-618) U/L Total Protein (6.3-8.2) g/dL Albumin (3.5-5.0) g/dL 03/18/20 03/18/20 03/19/20 Range/Units 20:37 22:26 05:49 RBC 3.10 L (4.30-5.90) m/uL Hgb 10.3 L (13.0-17.5) gm/dL Hct 32.5 L (39.0-53.0) % MCV 104.6 H (80.0-100.0) fL Lymphocytes # 0.5 L (1.0-4.8) k/uL PT (9.0-12.0) sec INR (<1.2) Sodium 135 L (137-145) mmol/L Potassium 5.9 H (3.5-5.1) mmol/L BUN 90 H (9-20) mg/dL Creatinine 2.74 H (0.66-1.25) mg/dL Glucose 140 H (74-99) mg/dL POC Glucose (mg/dL) 140 H (75-99) mg/dL Calcium 8.1 L (8.4-10.2) mg/dL Magnesium (1.6-2.3) mg/dL Lactate Dehydrogenase (313-618) U/L Total Protein (6.3-8.2) g/dL Albumin (3.5-5.0) g/dL 03/19/20 03/19/20 03/19/20 Range/Units 05:49 06:07 10:27 RBC (4.30-5.90) m/uL Hgb (13.0-17.5) gm/dL Hct (39.0-53.0) % MCV (80.0-100.0) fL Lymphocytes # (1.0-4.8) k/uL PT 61.8 H (9.0-12.0) sec INR 6.1 H* (<1.2) Sodium 136 L (137-145) mmol/L Potassium 5.7 H (3.5-5.1) mmol/L BUN 91 H (9-20) mg/dL Creatinine 2.57 H (0.66-1.25) mg/dL Glucose 119 H (74-99) mg/dL POC Glucose (mg/dL) 126 H (75-99) mg/dL Calcium 8.3 L (8.4-10.2) mg/dL Magnesium 2.7 H (1.6-2.3) mg/dL Lactate Dehydrogenase (313-618) U/L Total Protein 5.4 L (6.3-8.2) g/dL Albumin 2.7 L (3.5-5.0) g/dL 03/19/20 Range/Units 11:37 RBC (4.30-5.90) m/uL Hgb (13.0-17.5) gm/dL Hct (39.0-53.0) % MCV (80.0-100.0) fL Lymphocytes # (1.0-4.8) k/uL PT (9.0-12.0) sec INR (<1.2) Sodium (137-145) mmol/L Potassium (3.5-5.1) mmol/L BUN (9-20) mg/dL Creatinine (0.66-1.25) mg/dL Glucose (74-99) mg/dL POC Glucose (mg/dL) 129 H (75-99) mg/dL Calcium (8.4-10.2) mg/dL Magnesium (1.6-2.3) mg/dL Lactate Dehydrogenase (313-618) U/L Total Protein (6.3-8.2) g/dL Albumin (3.5-5.0) g/dL Microbiology - Last 24 Hours (Table) 03/17/20 14:48 Blood Culture Gram Stain - Preliminary Blood Blood Culture - Preliminary Staphylococcus aureus 03/17/20 20:27 Gram Stain - Preliminary Groin Wound Culture - Preliminary Gram Neg Bacilli Presumptive MRSA 03/17/20 14:27 Urine Culture - Preliminary Urine,Voided Gram Neg Bacilli 03/17/20 14:48 Blood Culture - Final Blood 03/17/20 14:48 Blood Culture - Preliminary Blood No Growth after 24 hours 03/17/20 22:09 Anaerobic Culture - Preliminary Penis
--- NOTE | 2020-03-19 15:53 | P.PN ---
Subjective Progress Note Date: 03/19/20 Principal diagnosis: Sepsis related to penile erosion and secondary cellulitis 72-year-old male patient who was sent over to the hospital from an extended care facility due to concern of a infection of his penis/scrotum. He is a custodial resident with a rash in his groin area eroding into his foreskin. The patient was in the hospital last month for a fall at home and during the hospital stay had developed urinary retention. He was seen by urology. He is known to have bladder cancer. The patient has a chronically indwelling Clinton catheter which was placed a week ago. He was started on Flomax to be followed up by urology on outpatient basis. He is not a good historian due to his underlying dementia. At a time of arrival, the patient was afebrile and had a blood pressure with a systolic being in the mid 90s. His creatinine was at 3.07 at a time of admission. He was given IV fluids with normal state rate of 50 mL an hour. He was started on IV antibiotics. Cultures still pending for now. Meanwhile, he was also found to be toxic and supratherapeutic on his INR with a level being more than 10 and the patient was given vitamin K. Hemoglobin was stable at 9.9. In regards to his potassium level of 5.7, he was given a dose of Kayexalate. The patient is known to have multiple medical problems and comorbidities. He had COPD, dementia, hypertension, obstructive sleep apnea, chronic atrial fibrillation, and he has a pacemaker in place. The pacemaker was placed several years back for a symptomatic bradycardia and atrial fibrillation. The patient is known to have a prosthetic aortic valve and he has undergone previous aortic valve replacement. On 03/19/2020 patient seen in follow-up on selective care unit. He is awake and alert, in no acute distress, he is a poor historian, but appears to be breathing comfortably, denies any distress. Room air pulse ox 95%, his been afebrile, hemodynamically patient has been stable. He is on the daptomycin, cefepime and clindamycin, his groin wound culture showed gram-negative bacilli, presumptive M RSA, blood culture showed MSSA, and urine culture positive for gram-negative bacilli. He denies any dyspnea, no cough or congestion no complaints of chest pain. He is breathing comfortably. He's had no fever or chills, he was seen by urology services, his Clinton remains about, it's unclear how much he is voiding, it appears that the Clinton was taken out this morning. Patient is being followed by wound care surgery for nonhealing ulcerations on the left calcaneus and abdominal folds. Today's labs have been reviewed, showing white blood cell count of 8.9, hemoglobin of 10.3, his INR today is 6.1, sodium is 136, potassium is 5.7, there are 3 large lites were within normal limits, renal profile is slightly improved, with BUN of 91, creatinine of 2.57 Objective - Vital Signs Vital signs: Vital Signs Temp 97.8 F 03/19/20 12:00 Pulse 68 03/19/20 12:00 Resp 18 03/19/20 12:00 BP 103/65 03/19/20 12:00 Pulse Ox 95 03/19/20 12:00 Intake & Output 03/18/20 03/19/20 03/19/20 18:59 06:59 18:59 Intake Total 598 300 Output Total 1275 200 Balance 598 -1275 100 Weight 161.025 kg 127 kg Intake: Oral 598 300 Output: Urine 1275 200 Coude 200 Other: Voiding Method Indwelling Catheter Indwelling Catheter Indwelling Catheter # Bowel Movements 1 3 - Exam GENERAL EXAM: Alert, very pleasant obese 74-year-old white male, on room air, with pulse ox of 95% comfortable in no apparent distress. HEAD: Normocephalic/atraumatic. EYES: Normal reaction of pupils, equal size. Conjunctiva pink, sclera white. NOSE: Clear with pink turbinates. THROAT: No erythema or exudates. NECK: No masses, no JVD, no thyroid enlargement, no adenopathy. CHEST: No chest wall deformity. Symmetrical expansion. LUNGS: Equal air entry with no crackles, wheeze, rhonchi or dullness. CVS: Regular rate and rhythm, normal S1 and S2, no gallops, no murmurs, no rubs ABDOMEN: Soft, nontender. No hepatosplenomegaly, normal bowel sounds, no guar ding or rigidity. EXTREMITIES: No clubbing, no edema, no cyanosis, 2+ pulses and upper and lower extremities. MUSCULOSKELETAL: Muscle strength and tone normal. SPINE: No scoliosis or deformity SKIN: Bilateral abdominal ulcerations, and maceration with excoriation, left medial calcaneal ulceration CENTRAL NERVOUS SYSTEM: Alert and oriented -3. No focal deficits, tone is normal in all 4 extremities. PSYCHIATRIC: Alert and oriented -3. Appropriate affect. Intact judgment and insight. - Labs CBC & Chem 7: 03/19/20 05:49 03/19/20 05:49 Labs: Abnormal Lab Results - Last 24 Hours (Table) 03/18/20 03/18/20 03/18/20 Range/Units 15:15 17:05 17:43 RBC (4.30-5.90) m/uL Hgb (13.0-17.5) gm/dL Hct (39.0-53.0) % MCV (80.0-100.0) fL Lymphocytes # (1.0-4.8) k/uL PT (9.0-12.0) sec INR (<1.2) Sodium (137-145) mmol/L Potassium 5.9 H (3.5-5.1) mmol/L BUN (9-20) mg/dL Creatinine (0.66-1.25) mg/dL Glucose (74-99) mg/dL POC Glucose (mg/dL) 157 H (75-99) mg/dL Calcium (8.4-10.2) mg/dL Magnesium (1.6-2.3) mg/dL Lactate Dehydrogenase 796 H (313-618) U/L Total Protein (6.3-8.2) g/dL Albumin (3.5-5.0) g/dL 03/18/20 03/18/20 03/19/20 Range/Units 20:37 22:26 05:49 RBC 3.10 L (4.30-5.90) m/uL Hgb 10.3 L (13.0-17.5) gm/dL Hct 32.5 L (39.0-53.0) % MCV 104.6 H (80.0-100.0) fL Lymphocytes # 0.5 L (1.0-4.8) k/uL PT (9.0-12.0) sec INR (<1.2) Sodium 135 L (137-145) mmol/L Potassium 5.9 H (3.5-5.1) mmol/L BUN 90 H (9-20) mg/dL Creatinine 2.74 H (0.66-1.25) mg/dL Glucose 140 H (74-99) mg/dL POC Glucose (mg/dL) 140 H (75-99) mg/dL Calcium 8.1 L (8.4-10.2) mg/dL Magnesium (1.6-2.3) mg/dL Lactate Dehydrogenase (313-618) U/L Total Protein (6.3-8.2) g/dL Albumin (3.5-5.0) g/dL 03/19/20 03/19/20 03/19/20 Range/Units 05:49 06:07 10:27 RBC (4.30-5.90) m/uL Hgb (13.0-17.5) gm/dL Hct (39.0-53.0) % MCV (80.0-100.0) fL Lymphocytes # (1.0-4.8) k/uL PT 61.8 H (9.0-12.0) sec INR 6.1 H* (<1.2) Sodium 136 L (137-145) mmol/L Potassium 5.7 H (3.5-5.1) mmol/L BUN 91 H (9-20) mg/dL Creatinine 2.57 H (0.66-1.25) mg/dL Glucose 119 H (74-99) mg/dL POC Glucose (mg/dL) 126 H (75-99) mg/dL Calcium 8.3 L (8.4-10.2) mg/dL Magnesium 2.7 H (1.6-2.3) mg/dL Lactate Dehydrogenase (313-618) U/L Total Protein 5.4 L (6.3-8.2) g/dL Albumin 2.7 L (3.5-5.0) g/dL 03/19/20 Range/Units 11:37 RBC (4.30-5.90) m/uL Hgb (13.0-17.5) gm/dL Hct (39.0-53.0) % MCV (80.0-100.0) fL Lymphocytes # (1.0-4.8) k/uL PT (9.0-12.0) sec INR (<1.2) Sodium (137-145) mmol/L Potassium (3.5-5.1) mmol/L BUN (9-20) mg/dL Creatinine (0.66-1.25) mg/dL Glucose (74-99) mg/dL POC Glucose (mg/dL) 129 H (75-99) mg/dL Calcium (8.4-10.2) mg/dL Magnesium (1.6-2.3) mg/dL Lactate Dehydrogenase (313-618) U/L Total Protein (6.3-8.2) g/dL Albumin (3.5-5.0) g/dL Microbiology - Last 24 Hours (Table) 03/17/20 20:27 Gram Stain - Preliminary Groin Wound Culture - Preliminary Gram Neg Bacilli Presumptive MRSA 03/17/20 14:48 Blood Culture Gram Stain - Preliminary Blood Blood Culture - Preliminary Staphylococcus aureus 03/17/20 14:27 Urine Culture - Preliminary Urine,Voided Gram Neg Bacilli 03/17/20 14:48 Blood Culture - Final Blood 03/17/20 14:48 Blood Culture - Preliminary Blood No Growth after 24 hours 03/17/20 22:09 Anaerobic Culture - Preliminary Penis Assessment and Plan Plan: Assessment: 1 Penile erosion secondary to catheter with suspected infection with secondary cellulitis, questionable early necrotizing fasciitis of the scrotal and the groin area. Wound cultures showed presumptive MRSA, gram-negative bacilli, final culture is pending 2 MSSA bacteremia 3 gram-negative urinary tract infection, final culture is pending 4 acute kidney injury with secondary hyperkalemia, improving 5 nonhealing wounds under the abdominal folds, and left calcaneal area 6 obstructive uropathy with a indwelling Clinton catheter in place 7 advanced dementia with impairment in cognitive functions 8 chronic atrial fibrillation with a supratherapeutic PT/INR while on Coumadin 9 history of aortic valve replacement 10 supratherapeutic PT/INR without evidence of an acute bleed 11 hypertension 12 obstructive sleep apnea. 13 history of pacemaker insertion for symptomatically bradycardia 14 COPD currently on room air oxygen with a pulse ox of 94% 15 chronic anemia 16 hyperlipidemia 17 history of previous CVA with expressive aphasia 18 BPH Plan: We'll stop the clindamycin and daptomycin, we will start vancomycin, continue cefepime. Will await final cultures. Obtain follow-up blood cultures. No worsening dyspnea, continue bronchodilators, no fever or chills. Monitor renal function. Monitor electrolytes, monitor febrile pattern. Home services are following, nephrology is following. Repeat anticoagulation profile in the morning. We'll continue to follow. Urology consultation was noted, there is a possibility patient may need suprapubic catheter insertion. I performed a history & physical examination of the patient and discussed their management with my nurse practitioner, Gabbi Graves. I reviewed the nurse practitioner's note and agree with the documented findings and plan of care. Lung sounds are positive for clear breath sound. The findings and the impression was discussed with the patient. I attest to the documentation by the nurse practitioner. Time with Patient: Less than 30
[2020-03-19 17:08] LABS: Glucose,Whole Blood 145 mg/dL (75-99)
--- NOTE | 2020-03-19 17:55 | P.PN ---
Subjective Progress Note Date: 03/19/20 Te Brady is a 74-year-old male patient who presented to the ER from rehab with complaints of increased O fungal rash in the groin eroding foreskin secondary to catheter. Patient also had acute kidney injury and elevated INR. Patient's past medical history of atrial fibrillation which she is maintained on Coumadin, heart failure, COPD, dementia, hypertension, myocardial infarction, osteoarthritis with sleep apnea in which he uses home CPAP machine, pacemaker, anxiety and heart valve replacement. Patient's creatinine upon admission 3.07 and bun 77 potassium also elevated at 56. INR greater than 10. UA positive for the same Estrace. Chest x-ray completed showing T over the left lower lung r egion correlate for atelectasis or pneumonia. At this time patient has been started on Rocephin and Levaquin for IV antibiotics. Urology services have been consulted. Nephrology service is consulted for acute kidney injury. Potassium lowering cocktail given per nephrology. Dr. zavala and has been consulted for pulmonary due to possible pneumonia. Wound and blood cultures ordered. at this time patient denies chest pain or shortness of breath. Patient denies nausea vomiting or diarrhea. On 03/19/2020 patient was seen and examined on the medical floor he is alert and oriented 3 in no apparent distress, he is complaining of diarrhea with stool incontinence, otherwise he denies any complaints there is no fever or chills no headache or dizziness, no chest pain no shortness of breath no cough no nausea or vomiting no abdominal pain no blood in the stools no burning with urination no frequency or urgency and no hematuria Objective - Vital Signs Vital signs: Vital Signs Temp 97.8 F 03/19/20 12:00 Pulse 68 03/19/20 12:00 Resp 18 03/19/20 12:00 BP 103/65 03/19/20 12:00 Pulse Ox 95 03/19/20 12:00 Intake & Output 03/18/20 03/19/20 03/19/20 18:59 06:59 18:59 Intake Total 598 300 Output Total 1275 200 Balance 598 -1275 100 Weight 161.025 kg 127 kg Intake: Oral 598 300 Output: Urine 1275 200 Coude 200 Other: Voiding Method Indwelling Catheter Indwelling Catheter Indwelling Catheter # Bowel Movements 1 3 - Exam Head normocephalic and atraumatic Neck supple no JVD no goiter Lungs clear to auscultation bilaterally no wheezing or crackles Heart irregular rate. known atrial fibrillation Abdomen is soft nontender nondistended positive bowel sounds no hepatosplenomegaly Extremities no edema no cyanosis or clubbing Neuro alert and orientated to 2. Dementia Drainage noted to penile area around catheter. Erosion to groin area. - Labs CBC & Chem 7: 03/19/20 05:49 03/19/20 16:43 Labs: Abnormal Lab Results - Last 24 Hours (Table) 03/18/20 03/18/20 03/18/20 Range/Units 17:05 17:43 20:37 RBC (4.30-5.90) m/uL Hgb (13.0-17.5) gm/dL Hct (39.0-53.0) % MCV (80.0-100.0) fL Lymphocytes # (1.0-4.8) k/uL PT (9.0-12.0) sec INR (<1.2) Sodium (137-145) mmol/L Potassium (3.5-5.1) mmol/L BUN (9-20) mg/dL Creatinine (0.66-1.25) mg/dL Glucose (74-99) mg/dL POC Glucose (mg/dL) 157 H 140 H (75-99) mg/dL Calcium (8.4-10.2) mg/dL Magnesium (1.6-2.3) mg/dL Lactate Dehydrogenase 796 H (313-618) U/L Total Protein (6.3-8.2) g/dL Albumin (3.5-5.0) g/dL 03/18/20 03/19/20 03/19/20 Range/Units 22:26 05:49 05:49 RBC 3.10 L (4.30-5.90) m/uL Hgb 10.3 L (13.0-17.5) gm/dL Hct 32.5 L (39.0-53.0) % MCV 104.6 H (80.0-100.0) fL Lymphocytes # 0.5 L (1.0-4.8) k/uL PT (9.0-12.0) sec INR (<1.2) Sodium 135 L 136 L (137-145) mmol/L Potassium 5.9 H 5.7 H (3.5-5.1) mmol/L BUN 90 H 91 H (9-20) mg/dL Creatinine 2.74 H 2.57 H (0.66-1.25) mg/dL Glucose 140 H 119 H (74-99) mg/dL POC Glucose (mg/dL) (75-99) mg/dL Calcium 8.1 L 8.3 L (8.4-10.2) mg/dL Magnesium 2.7 H (1.6-2.3) mg/dL Lactate Dehydrogenase (313-618) U/L Total Protein 5.4 L (6.3-8.2) g/dL Albumin 2.7 L (3.5-5.0) g/dL 03/19/20 03/19/20 03/19/20 Range/Units 06:07 10:27 11:37 RBC (4.30-5.90) m/uL Hgb (13.0-17.5) gm/dL Hct (39.0-53.0) % MCV (80.0-100.0) fL Lymphocytes # (1.0-4.8) k/uL PT 61.8 H (9.0-12.0) sec INR 6.1 H* (<1.2) Sodium (137-145) mmol/L Potassium (3.5-5.1) mmol/L BUN (9-20) mg/dL Creatinine (0.66-1.25) mg/dL Glucose (74-99) mg/dL POC Glucose (mg/dL) 126 H 129 H (75-99) mg/dL Calcium (8.4-10.2) mg/dL Magnesium (1.6-2.3) mg/dL Lactate Dehydrogenase (313-618) U/L Total Protein (6.3-8.2) g/dL Albumin (3.5-5.0) g/dL 03/19/20 Range/Units 17:06 RBC (4.30-5.90) m/uL Hgb (13.0-17.5) gm/dL Hct (39.0-53.0) % MCV (80.0-100.0) fL Lymphocytes # (1.0-4.8) k/uL PT (9.0-12.0) sec INR (<1.2) Sodium (137-145) mmol/L Potassium (3.5-5.1) mmol/L BUN (9-20) mg/dL Creatinine (0.66-1.25) mg/dL Glucose (74-99) mg/dL POC Glucose (mg/dL) 145 H (75-99) mg/dL Calcium (8.4-10.2) mg/dL Magnesium (1.6-2.3) mg/dL Lactate Dehydrogenase (313-618) U/L Total Protein (6.3-8.2) g/dL Albumin (3.5-5.0) g/dL Microbiology - Last 24 Hours (Table) 03/17/20 14:48 Blood Culture - Preliminary Blood No Growth after 48 hours 03/17/20 20:27 Gram Stain - Preliminary Groin Wound Culture - Preliminary Gram Neg Bacilli Presumptive MRSA 03/17/20 14:48 Blood Culture Gram Stain - Preliminary Blood Blood Culture - Preliminary Staphylococcus aureus 03/17/20 14:27 Urine Culture - Preliminary Urine,Voided Gram Neg Bacilli 03/17/20 14:48 Blood Culture - Final Blood Assessment and Plan Assessment: 1. Infection around catheter site with penile erosion. Wound cultures have been obtained. Blood cultures ordered. Patient started on Levaquin and Rocephin. Urology consult placed 2. Acute kidney injury with elevated potassium. Creatinine elevated at 3.06 upon admission. Continue normal saline at 50. Potassium lowing cocktail ordered per nephrology services 3. Supratherapeutic INR. Hold Coumadin and recheck 4. Possible pneumonia. Patient started on Levaquin and Rocephin. Pulmonary service is consulted 5. History of insulin-dependent diabetes mellitus 6. History of essential hypertension 7. History of hyperlipidemia. Maintained on statin 8. History of stroke with suppressive aphasia 9. History of morbid obesity 10. History of urinary retention and difficulty with Clinton insertion. Urology services have been consulted 11. Dementia. Maintained on Aricept and Namenda 12. Diarrhea will check stools for C. diff DVT prophylaxis SCDs due to subtherapeutic INR. GI prophylaxis Protonix Urology, nephrology and pulmonary service is consulted Levaquin and Rocephin for IV antibiotics wound and blood cultures ordered Coumadin on hold
[2020-03-19] MEDS ORDERED: DEXTROSE 50% SYRINGE 50 ML IVP STA (19:02)
[2020-03-19] MEDS ORDERED: INSULIN REGULAR 100 UNIT/ML VIAL IV ONE (19:02)
[2020-03-19 20:11] LABS: Glucose,Whole Blood 229 mg/dL (75-99)
[2020-03-19] MEDS: TAMSULOSIN 0.4 MG CAP.ER.24H PO SCH (21:08)
[2020-03-19] MEDS: ATORVASTATIN 10 MG TAB PO SCH (21:08)
[2020-03-19] MEDS: DONEPEZIL 10 MG TAB PO SCH (21:08)
[2020-03-19] MEDS: HYDROCORTISONE 10 MG TAB PO SCH (21:09)
[2020-03-20 06:16] LABS: Glucose,Whole Blood 116 mg/dL (75-99)
[2020-03-20] MEDS: PANTOPRAZOLE 40 MG TABLET PO SCH (06:57)
[2020-03-20] MEDS: CHOLECALCIFEROL 1,000 UNIT TAB PO SCH (06:57)
[2020-03-20] MEDS: METOPROLOL SUCCINATE (ER) 50 MG TAB.ER.24H PO SCH (06:57)
[2020-03-20] MEDS: MIDODRINE 5 MG TAB PO SCH ×3 (06:57→16:06)
[2020-03-20] MEDS: MAGNESIUM OXIDE 400 MG TAB PO SCH (06:57)
[2020-03-20] MEDS: FERROUS SULFATE 325 MG TAB PO SCH (06:58)
[2020-03-20 07:45] LABS: Basophils # (A) 0.1 k/uL (0-0.2); Basophils % (A) 1 %; Eosinophils # (A) 0.1 k/uL (0-0.7); Eosinophils % (A) 1 %; HCT 31.4 % (39.0-53.0); HGB 9.7 gm/dL (13.0-17.5); Hypochromasia Moderate; Lymphocytes # (A) 0.9 k/uL (1.0-4.8); Lymphocytes % (A) 9 %; MCH 32.5 pg (25.0-35.0); MCHC 30.7 g/dL (31.0-37.0); MCV 105.7 fL (80.0-100.0); Macrocytosis Moderate; Mean Platelet Volume 7.5; Monocytes # (A) 0.7 k/uL (0-1.0); Monocytes % (A) 7 %; Neutrophils # (A) 8.5 k/uL (1.3-7.7); Neutrophils % (A) 82 %; Platelet Count 288 k/uL (150-450); RBC 2.97 m/uL (4.30-5.90); RDW 15.5 % (11.5-15.5); WBC 10.4 k/uL (3.8-10.6)
[2020-03-20 08:10] LABS: Albumin 2.7 g/dL (3.5-5.0); Calcium 8.3 mg/dL (8.4-10.2); Magnesium 2.6 mg/dL (1.6-2.3); Total Bilirubin 0.9 mg/dL (0.2-1.3); Total Protein 5.5 g/dL (6.3-8.2)
[2020-03-20 08:18] LABS: Prothrombin Time 64.1 sec (9.0-12.0)
[2020-03-20 08:26] LABS: Potassium 5.5 mmol/L (3.5-5.1)
[2020-03-20 08:29] LABS: INR 6.3 (<1.2)
[2020-03-20] MEDS: SYMBICORT 160-4.5 MCG INHALER INHALATION SCH ×2 (08:55→20:39)
[2020-03-20] MEDS: CEFEPIME 1 GM in SODIUM CHLORIDE 0.9% 50 ML IVPB SCH (09:45)
[2020-03-20] MEDS: MEMANTINE 5 MG TAB PO SCH ×2 (09:46→20:50)
[2020-03-20] MEDS: FLUCONAZOLE 100 MG TAB PO SCH (09:46)
[2020-03-20] MEDS: CLOTRIMAZOLE/BETAMETH 1-0.05% CREAM 45 GM TUBE TOPICAL SCH ×2 (09:46→20:50)
[2020-03-20] MEDS: HYDROCORTISONE 10 MG TAB PO SCH ×2 (09:46→20:50)
[2020-03-20] MEDS: VANCOMYCIN 2,250 MG in SODIUM CHLORIDE 0.9% 500 ML 500 ML IVPB SCH (10:16)
[2020-03-20 12:27] LABS: Glucose,Whole Blood 143 mg/dL (75-99)
[2020-03-20] MEDS ORDERED: FUROSEMIDE 10 MG/ML 2 ML VIAL IV ONE (12:33)
--- NOTE | 2020-03-20 12:34 | P.PN ---
Subjective Patient is seen in follow-up for acute kidney injury. Renal function improving. Potassium level 5.5 this morning. He has been voiding. Clinton catheter removed March 19. No vomiting or diarrhea. Oral intake is good. Blood pressure improved after starting Cortef. Vital signs are stable. General: The patient appeared well nourished and normally developed. HEENT: Head exam is unremarkable. Neck is without jugular venous distension. LUNGS: Breath sounds decreased. HEART: Rate and Rhythm are regular. ABDOMEN: Soft, nontender. Obese. EXTREMITITES: 1+ edema. Chronic skin changes noted. Objective - Vital Signs Vital signs: Vital Signs Temp 96.6 F L 03/20/20 09:37 Pulse 82 03/20/20 09:37 Resp 18 03/20/20 09:37 BP 121/58 03/20/20 09:37 Pulse Ox 94 L 03/20/20 09:37 Intake & Output 03/19/20 03/20/20 03/20/20 18:59 06:59 18:59 Intake Total 540 Output Total 200 1 300 Balance 340 -1 -300 Weight 125.5 kg Intake: Oral 540 Output: Urine 200 1 300 Coude 200 Other: Voiding Method Indwelling Catheter Urinal Urinal # Voids 250 1 # Bowel Movements 3 - Labs CBC & Chem 7: 03/20/20 07:06 03/20/20 07:06 Labs: Abnormal Lab Results - Last 24 Hours (Table) 03/19/20 03/19/20 03/19/20 Range/Units 16:43 17:06 20:10 RBC (4.30-5.90) m/uL Hgb (13.0-17.5) gm/dL Hct (39.0-53.0) % MCV (80.0-100.0) fL MCHC (31.0-37.0) g/dL Neutrophils # (1.3-7.7) k/uL Lymphocytes # (1.0-4.8) k/uL PT (9.0-12.0) sec INR (<1.2) Potassium 6.0 H (3.5-5.1) mmol/L Chloride (98-107) mmol/L BUN (9-20) mg/dL Creatinine (0.66-1.25) mg/dL Glucose (74-99) mg/dL POC Glucose (mg/dL) 145 H 229 H (75-99) mg/dL Calcium (8.4-10.2) mg/dL Magnesium (1.6-2.3) mg/dL Total Protein (6.3-8.2) g/dL Albumin (3.5-5.0) g/dL 03/19/20 03/20/20 03/20/20 Range/Units 22:14 06:15 07:06 RBC 2.97 L (4.30-5.90) m/uL Hgb 9.7 L (13.0-17.5) gm/dL Hct 31.4 L (39.0-53.0) % MCV 105.7 H (80.0-100.0) fL MCHC 30.7 L (31.0-37.0) g/dL Neutrophils # 8.5 H (1.3-7.7) k/uL Lymphocytes # 0.9 L (1.0-4.8) k/uL PT (9.0-12.0) sec INR (<1.2) Potassium 5.8 H (3.5-5.1) mmol/L Chloride (98-107) mmol/L BUN (9-20) mg/dL Creatinine (0.66-1.25) mg/dL Glucose (74-99) mg/dL POC Glucose (mg/dL) 116 H (75-99) mg/dL Calcium (8.4-10.2) mg/dL Magnesium (1.6-2.3) mg/dL Total Protein (6.3-8.2) g/dL Albumin (3.5-5.0) g/dL 03/20/20 03/20/20 03/20/20 Range/Units 07:06 07:06 12:26 RBC (4.30-5.90) m/uL Hgb (13.0-17.5) gm/dL Hct (39.0-53.0) % MCV (80.0-100.0) fL MCHC (31.0-37.0) g/dL Neutrophils # (1.3-7.7) k/uL Lymphocytes # (1.0-4.8) k/uL PT 64.1 H (9.0-12.0) sec INR 6.3 H* (<1.2) Potassium 5.5 H (3.5-5.1) mmol/L Chloride 109 H (98-107) mmol/L BUN 92 H (9-20) mg/dL Creatinine 1.94 H (0.66-1.25) mg/dL Glucose 109 H (74-99) mg/dL POC Glucose (mg/dL) 143 H (75-99) mg/dL Calcium 8.3 L (8.4-10.2) mg/dL Magnesium 2.6 H (1.6-2.3) mg/dL Total Protein 5.5 L (6.3-8.2) g/dL Albumin 2.7 L (3.5-5.0) g/dL Microbiology - Last 24 Hours (Table) 03/17/20 20:27 Gram Stain - Final Groin Wound Culture - Final Enterobacter cloacae Methicillin resist S. aureus 03/17/20 14:48 Blood Culture Gram Stain - Final Blood Blood Culture - Final Methicillin resist S. aureus 03/17/20 14:27 Urine Culture - Final Urine,Voided Proteus mirabilis 03/17/20 14:48 Blood Culture - Preliminary Blood No Growth after 48 hours Assessment and Plan Plan: Assessment: 1. Acute kidney injury secondary to ATN secondary to infection, diuresis and hypotension. Creatinine 3.07 on admission and is 1.94 today. Baseline creatinine near 1. Ultrasound from February 2020 revealed no evidence of hydronephrosis. Urine eosinophils 1%. 2. Hyperkalemia secondary to acute kidney injury. Stable. 3. Coagulopathy status post vitamin K. 4. History of bladder cancer. 5. History of urinary retention status post Clinton catheter placement. It was removed March 19 due to infection. Urology following. 6. UTI and scrotal erythema and penile erosion. Urine culture pending. Currently on antibiotics. Urine culture positive for Proteus. Blood culture positive for MRSA. Wound culture positive for MRSA and Enterobacter. 7. Hypotension. Cortisol level noted to be low - cosyntropin stimulation test suggestive of adrenal insufficiency. Maintained on midodrine and Cortef. Blood pressure better. 8. Dementia. Plan: Lasix 20 mg IV once now. Low potassium diet. Continue to monitor renal function and urine output. Repeat potassium level this evening. Monitor bladder scans closely.
--- NOTE | 2020-03-20 14:51 | CDI ---
Documentation Clarification Form Date: 03/20/2020 02:39:17 PM From: Carly BorreroCaBOSSMAN, CCDS Admit Date: 03/17/2020 04:55:00 PM Patient Name: Te Brady Visit Number: [id number] Discharge Date: ATTENTION: The Clinical Documentation Specialists (CDI) and [facility] Coding Staff appreciate your assistance in clarifying documentation. Please respond to the clarification below the line at the bottom and electronically sign. The CDI & [facility] Coding staff will review the response and follow-up if needed. Please note: Queries are made part of the Legal Health Record. If you have any questions, please contact the author of this message via ITS. Dr. Gina Velasco: Per the 03/18 Pulmonary Consult: "Penile erosion secondary to catheter with suspected infection with secondary cellulitis, questionable early necrotizing fasciitis of the scrotal and the groin area. Also, there may be also a suspicion for underlying urine checked infection." Per the 03/18 Urology Consult: Incomplete bladder emptying & Penile erosion. Hoyos catheter removed. History/Risk Factors: Atrial Fibrillation, Heart Failure, COPD, Dementia, Hypertension, [place], OA, TORIBIO w/CPAP, Venous stasis of legs, Exposure to Agent [place], Previous MRSA infection urine 11/2018. Clinical Indicators: Patient presented to the ED from SNF/Rehab on 03/17 with an increasing fungal rash in the groin and eroding for the foreskin secondary to the catheter which has been in for approximately a week. Lab 03/17: Cloudy, 1+ protein, Moderate blood, Large Esterase, RBC 21, WBC 88. Urine Culture 03/17: Final: Proteus mirabilis. Blood Culture 03/17: Final: MRSA. Treatment 03/17: IV fluid bolus 1,000 mls @ 999 mls/hr, IV Rocephin, IV fluid 1,000 mls @ 130 mls/hr, po Flomax, Topical Lotrisone. In your professional opinion, can you please clarify: Is the patient's groin and penile infection and cellulitis related to the Hoyos Catheter? Is the patient's groin and penile infection and cellulitis unrelated to the Hoyos Catheter? Please specify the cause of the groin and penile infection and cellulitis if know: Other, please specify Unable to determine (Last Revision: August 2017) secondary to hoyos catheter MTDD
--- NOTE | 2020-03-20 14:56 | P.PN ---
Subjective Progress Note Date: 03/20/20 This is a 74-year-old gentleman with documented history of hypertension, persistent atrial fibrillation, COPD, obstructive sleep apnea, family history of premature coronary artery disease, dementia, nicotine dependence, single chamber pacemaker, history of mitral valve replacement with mechanical valve in July [address] Katz in the office. His last office visit was in January of this year. Patient was originally sent over to the hospital from an extended care facility due to concern of an infection of his penis/scrotum. He was noted to have a significant rash in his groin area eroding into the foreskin area. He is known to have bladder cancer as well. He has a chronically indwelling Clinton catheter which was apparently placed a week ago. Most of the history was obtained from the medical record as the patient does have underlying dementia. A wound culture was performed which revealed gram-negative bacilli, presumptive MRSA, blood culture showed MSSA and urine culture positive for gram-negative bacilli. Patient developed acute kidney injury, he is on Coumadin for anticoagulation at home, his INR has been supratherapeutic and for this reason the Coumadin on hold. The patient was seen and examined this morning, overall he states he feels well. He slept well last night. Blood pressure 146/90 with a heart rate of 80, 95% on room air. White blood cell count 10.4, hemoglobin 9.7, platelet count 288. Pro time today 64.1 with an INR of 6.3. Sodium 137, potassium 5.5, BUN 92 and creatinine 1.9. Objective - Vital Signs Vital signs: Vital Signs Temp 96.5 F L 03/20/20 12:00 Pulse 80 03/20/20 12:00 Resp 18 03/20/20 12:00 BP 146/90 03/20/20 12:00 Pulse Ox 95 03/20/20 12:00 Intake & Output 03/19/20 03/20/20 03/20/20 18:59 06:59 18:59 Intake Total 540 652 Output Total 200 1 300 Balance 340 -1 352 Weight 125.5 kg Intake: Oral 540 652 Output: Urine 200 1 300 Coude 200 Other: Voiding Method Indwelling Catheter Urinal Urinal # Voids 250 1 # Bowel Movements 3 - Exam PHYSICAL EXAMINATION: GENERAL: 74-year-old gentleman in no acute distress at the time of my examination HEENT: Head is atraumatic, normocephalic. Pupils equal, round. Sclera anicte ailin. Conjunctiva are clear. Mucous membranes of the mouth are moist. Neck is supple. There is no elevated jugular venous pressure. No carotid bruit is heard. HEART EXAMINATION: Heart S1, S2 irregularly irregular . CHEST EXAMINATION: Lungs are clear to auscultation and precussion. No chest wall tenderness is noted on palpation or with deep breathing. ABDOMEN: Soft, nontender. Bowel sounds are heard. No organomegaly noted. EXTREMITIES: 2+ peripheral pulses with no evidence of peripheral edema and no calf tenderness noted. NEUROLOGIC patient is awake, alert and oriented 3 . . - Labs CBC & Chem 7: 03/20/20 07:06 03/20/20 07:06 Labs: Abnormal Lab Results - Last 24 Hours (Table) 03/19/20 03/19/20 03/19/20 Range/Units 16:43 17:06 20:10 RBC (4.30-5.90) m/uL Hgb (13.0-17.5) gm/dL Hct (39.0-53.0) % MCV (80.0-100.0) fL MCHC (31.0-37.0) g/dL Neutrophils # (1.3-7.7) k/uL Lymphocytes # (1.0-4.8) k/uL PT (9.0-12.0) sec INR (<1.2) Potassium 6.0 H (3.5-5.1) mmol/L Chloride (98-107) mmol/L BUN (9-20) mg/dL Creatinine (0.66-1.25) mg/dL Glucose (74-99) mg/dL POC Glucose (mg/dL) 145 H 229 H (75-99) mg/dL Calcium (8.4-10.2) mg/dL Magnesium (1.6-2.3) mg/dL Total Protein (6.3-8.2) g/dL Albumin (3.5-5.0) g/dL 03/19/20 03/20/20 03/20/20 Range/Units 22:14 06:15 07:06 RBC 2.97 L (4.30-5.90) m/uL Hgb 9.7 L (13.0-17.5) gm/dL Hct 31.4 L (39.0-53.0) % MCV 105.7 H (80.0-100.0) fL MCHC 30.7 L (31.0-37.0) g/dL Neutrophils # 8.5 H (1.3-7.7) k/uL Lymphocytes # 0.9 L (1.0-4.8) k/uL PT (9.0-12.0) sec INR (<1.2) Potassium 5.8 H (3.5-5.1) mmol/L Chloride (98-107) mmol/L BUN (9-20) mg/dL Creatinine (0.66-1.25) mg/dL Glucose (74-99) mg/dL POC Glucose (mg/dL) 116 H (75-99) mg/dL Calcium (8.4-10.2) mg/dL Magnesium (1.6-2.3) mg/dL Total Protein (6.3-8.2) g/dL Albumin (3.5-5.0) g/dL 03/20/20 03/20/20 03/20/20 Range/Units 07:06 07:06 12:26 RBC (4.30-5.90) m/uL Hgb (13.0-17.5) gm/dL Hct (39.0-53.0) % MCV (80.0-100.0) fL MCHC (31.0-37.0) g/dL Neutrophils # (1.3-7.7) k/uL Lymphocytes # (1.0-4.8) k/uL PT 64.1 H (9.0-12.0) sec INR 6.3 H* (<1.2) Potassium 5.5 H (3.5-5.1) mmol/L Chloride 109 H (98-107) mmol/L BUN 92 H (9-20) mg/dL Creatinine 1.94 H (0.66-1.25) mg/dL Glucose 109 H (74-99) mg/dL POC Glucose (mg/dL) 143 H (75-99) mg/dL Calcium 8.3 L (8.4-10.2) mg/dL Magnesium 2.6 H (1.6-2.3) mg/dL Total Protein 5.5 L (6.3-8.2) g/dL Albumin 2.7 L (3.5-5.0) g/dL Microbiology - Last 24 Hours (Table) 03/17/20 20:27 Gram Stain - Final Groin Wound Culture - Final Enterobacter cloacae Methicillin resist S. aureus 03/17/20 14:48 Blood Culture Gram Stain - Final Blood Blood Culture - Final Methicillin resist S. aureus 03/17/20 14:27 Urine Culture - Final Urine,Voided Proteus mirabilis 03/17/20 14:48 Blood Culture - Preliminary Blood No Growth after 48 hours Assessment and Plan Plan: Assessment and plan #1 penile erosion secondary to catheter with suspected infection #2 MSSA bacteremia #3 acute kidney injury #4 nonhealing wounds under the abdominal folds #5 obstructive uropathy with indwelling Clinton catheter which has been removed, patient is voiding #6 advanced dementia #7 chronic persistent atrial fibrillation with supratherapeutic INR, Coumadin on hold #8 history of mitral valve replacement with mechanical valve #9 hypertension #10 obstructive sleep apnea #11 history of pacemaker #12 COPD #13 chronic anemia #14 hyperlipidemia #15 history of prior CVA Plan At this point in time we will continue to hold the Coumadin, monitor daily PT/INRs. Further recommendations to follow. DNP note has been reviewed, I agree with a documented findings and plan of care. Patient was seen and examined.
--- NOTE | 2020-03-20 15:05 | CDI ---
Documentation Clarification Form Date: 03/20/2020 02:52:57 PM From: Carly BorreroCaBOSSMAN garza, CCDS Admit Date: 03/17/2020 04:55:00 PM Patient Name: Te Brady Visit Number: [id number] Discharge Date: ATTENTION: The Clinical Documentation Specialists (CDI) and [facility] Coding Staff appreciate your assistance in clarifying documentation. Please respond to the clarification below the line at the bottom and electronically sign. The CDI & [facility] Coding staff will review the response and follow-up if needed. Please note: Queries are made part of the Legal Health Record. If you have any questions, please contact the author of this message via ITS. Dr. Gina Velasco: Per the 03/17 ED note: " Fear of sepsis he was hypotensive upon arrival he did receive fluids with improvement however the blood pressure." Per the 03/18 Pulmonary Consult: "Penile erosion secondary to catheter with suspected infection with secondary cellulitis, questionable early necrotizing fasciitis of the scrotal and the groin area. Also, there may be also a suspicion for underlying urine checked infection." Per the 03/18 Urology Consult: "Incomplete bladder emptying & Penile erosion. Clinton catheter removed." Per the 03/19 Pulmonary Progress Note: "Sepsis related to penile erosion and secondary cellulitis." History/Risk Factors: Atrial Fibrillation, Heart Failure, COPD, Dementia, Hypertension, [place], OA, TORIBIO w/CPAP, Venous stasis of legs, Exposure to Agent [place], Previous MRSA infection urine 11/2018. Clinical Indicators: Patient presented to the ED from SNF/Rehab on 03/17 with an increasing fungal rash in the groin and eroding for the foreskin secondary to the catheter which has been in for approximately a week. Also diagnosed with pneumonia, UTI & cellulitis of the groin. VS 03/17: T 97.5*, P 65, R 18, BP 83/41, PO 96 RA VS 03/18: T 97.5*, P 60, R 20 (sob), BP 90/59, PO 94 RA LAB 03/17: WBC 11.3^, Neut 9.5^, Lactic Acid (1.8). UA: Cloudy, 1+ protein, Moderate blood, Large Esterase, RBC 21, WBC 88. Urine Culture 03/17: Final: Proteus mirabilis. Blood Culture 03/17: Final: MRSA. Wound Culture 03/17: Final: Enterobacter cloacae, MRSA. Treatment 03/17: IV fluid bolus 1,000 mls @ 999 mls/hr, IV Rocephin, IV fluid 1,000 mls @ 130 mls/hr, po Flomax, Topical Lotrisone, Clinton catheter removed. In your professional opinion, please clarify if these findings signify one of the following conditions, whether the condition is POA, and cause, if known: Sepsis ruled out Sepsis ruled in: o Please specify the cause of the Sepsis if known: o Sepsis due to the Cellulitis of the groin & penile infection o Sepsis due to pneumonia o Sepsis due to UTI Please specify if the UTI is due to the Clinton Catheter. Severe Sepsis, due to, please specify: Other, please specify Unable to determine Present on Admission: Yes or No Identify the (suspected) organism (Last Revision: August 2017) sepsis ruled in secondary due to the cellulits of the groin and penile infection MTDD
--- NOTE | 2020-03-20 15:27 | CDI ---
Documentation Clarification Form Date: 03/20/2020 03:11:24 PM From: Carly Ca CCS, CCDS Admit Date: 03/17/2020 04:55:00 PM Patient Name: Te Brady Visit Number: [id number] Discharge Date: ATTENTION: The Clinical Documentation Specialists (CDI) and [facility] Coding Staff appreciate your assistance in clarifying documentation. Please respond to the clarification below the line at the bottom and electronically sign. The CDI & [facility] Coding staff will review the response and follow-up if needed. Please note: Queries are made part of the Legal Health Record. If you have any questions, please contact the author of this message via ITS. Dr. Killian Katz: Heart Failure and Congestive Heart Failure is documented throughout the chart including in the Cardiology Consult on 03/18 without further specificity. History/Risk Factors: Persistent Atrial Fibrillation, Congestive Heart Failure, [place], COPD, Hypertension, Hyperlipidemia, CAD, Osteoarthritis, SSS status post Permanent Pacemaker, Prosthetic Heart Valve, TORIBIO with CPAP, Agent [place] Exposure, Previous MRSA in urine 11/2018 and Dementia Clinical Indicators: Presented for the SNF/Rehab with increasing fungal rash in the groin & erosion to the foreskin secondary to the Clinton Catheter placed a week ago for urinary retention. On 03/18, 2+ peripheral edema is documented in the Cardiology Consult. 03/18 Cardiology consulted for supratherapeutic INR >10 and cardiac history. 03/17 EKG: R 81 undetermined rhythm, Nonspecific intraventricular block. 03/17 CXR: Possible atelectasis or pneumonia in left lower lobe. VS 03/17: T 97.5*, P 65, R 18, BP 83/41, PO 96 RA LAB 03/17: PT >130.0^, INR >10.0^^, APTT 80.7^, Na 134*, K 5.6^, BUN 77^, Creatinine 3.07^. BNP: Not done Echocardiogram Results (Most recent documented): 04/20/2017): Mild LVH, Left ventricular systolic function low normal w/EF 50-55%, Mild MR/TR, no pulmonary hypertension. Home meds include INH Albuterol, INH Symbicort, Coumadin, Toprol, Lasix 40 mg daily. Treatment 03/17: IV fluid 1,000 mls @ 999 mls/hr, IV Rocephin. 03/18: po Lasix 40 mg, INH Symbicort. 03/19: IV Lasix 20 mg x1. 03/20: IV Lasix 20 mg x1. In your professional opinion, can you please clarify the acuity and type of CHF if known? Systolic Heart Failure: o Acute o Chronic o Acute on Chronic Diastolic Heart Failure: o Acute o Chronic o Acute on Chronic Systolic & Diastolic Heart Failure: o Acute o Chronic o Acute on Chronic Heart Failure Unable to Determine Other, please specify (Last Revision: August 2017) Unable to determine MTDD
--- NOTE | 2020-03-20 15:41 | CDI ---
Documentation Clarification Form Date: 03/20/2020 03:29:00 PM From: Carly Ca CCS, CCDS Phone: Admit Date: 03/17/2020 04:55:00 PM Patient Name: Te Brady Visit Number: [id number] Discharge Date: ATTENTION: The Clinical Documentation Specialists (CDI) and [facility] Coding Staff appreciate your assistance in clarifying documentation. Please respond to the clarification below the line at the bottom and electronically sign. The CDI & [facility] Coding staff will review the response and follow-up if needed. Please note: Queries are made part of the Legal Health Record. If you have any questions, please contact the author of this message via ITS. Dr. Mercedes Padron: "Chronic Anemia" is documented in the 03/18 Pulmonary Consult and also the 03/19 Pulmonary Progress Note without further specificity. Anemia is not documented by the Attending Physician. History/Risk Factors: Persistent Atrial Fibrillation, Congestive Heart Failure, [place], COPD, Hypertension, Hyperlipidemia, CAD, Osteoarthritis, SSS status post Permanent Pacemaker, Prosthetic Heart Valve, TORIBIO with CPAP, Obesity w/BMI 36.5, Agent [place] Exposure, Previous MRSA in urine 11/2018 and Dementia Clinical Indicators: Presented for the SNF/Rehab with increasing fungal rash in the groin & erosion to the foreskin secondary to the Clinton Catheter placed a week ago for urinary retention. Bleeding for foreskin of penis. LAB: Hgb 03/17: 11.1*, 03/18: 9.9*, 03/19: 10.3*, 03/20 9.7* Hct 03/17: 34.1*, 03/18 31.8*, 03/19: 32.5*, 03/20: 31.4* Home meds: Ferrous Sulfate Iron, Percocet, INH Albuterol & Symbicort, Coumadin, Flomax, Protonix, Toprol, Namenda, MagOx, Lasix, Lipitor and Aricept. Treatment 03/17: IV fluid 1,000 mls @ 999 mls/hr, IV Rocephin, po Vit K, Home meds as scheduled including Feosol. In order to capture the severity of condition, please clarify the type of anemia and etiology if known:. Acute on chronic blood loss anemia Chronic blood loss anemia Iron deficiency anemia Drug induced anemia Nutritional anemia Unable to determine Other, please specify (Last Form Revision: July 2019) MTDD
[2020-03-20] MEDS: MEROPENEM 2 GM in SODIUM CHLORIDE 0.9% 100 ML IVPB SCH ×2 (16:07→23:28)
--- NOTE | 2020-03-20 16:56 | P.PN ---
Subjective Progress Note Date: 03/20/20 Principal diagnosis: Sepsis related to penile erosion and secondary cellulitis 72-year-old male patient who was sent over to the hospital from an extended care facility due to concern of a infection of his penis/scrotum. He is a senior care resident with a rash in his groin area eroding into his foreskin. The patient was in the hospital last month for a fall at home and during the hospital stay had developed urinary retention. He was seen by urology. He is known to have bladder cancer. The patient has a chronically indwelling Clinton catheter which was placed a week ago. He was started on Flomax to be followed up by urology on outpatient basis. He is not a good historian due to his underlying dementia. At a time of arrival, the patient was afebrile and had a blood pressure with a systolic being in the mid 90s. His creatinine was at 3.07 at a time of admission. He was given IV fluids with normal state rate of 50 mL an hour. He was started on IV antibiotics. Cultures still pending for now. Meanwhile, he was also found to be toxic and supratherapeutic on his INR with a level being more than 10 and the patient was given vitamin K. Hemoglobin was stable at 9.9. In regards to his potassium level of 5.7, he was given a dose of Kayexalate. The patient is known to have multiple medical problems and comorbidities. He had COPD, dementia, hypertension, obstructive sleep apnea, chronic atrial fibrillation, and he has a pacemaker in place. The pacemaker was placed several years back for a symptomatic bradycardia and atrial fibrillation. The patient is known to have a prosthetic aortic valve and he has undergone previous aortic valve replacement. On 03/19/2020 patient seen in follow-up on selective care unit. He is awake and alert, in no acute distress, he is a poor historian, but appears to be breathing comfortably, denies any distress. Room air pulse ox 95%, his been afebrile, hemodynamically patient has been stable. He is on the daptomycin, cefepime and clindamycin, his groin wound culture showed gram-negative bacilli, presumptive M RSA, blood culture showed MSSA, and urine culture positive for gram-negative bacilli. He denies any dyspnea, no cough or congestion no complaints of chest pain. He is breathing comfortably. He's had no fever or chills, he was seen by urology services, his Clinton remains about, it's unclear how much he is voiding, it appears that the Clinton was taken out this morning. Patient is being followed by wound care surgery for nonhealing ulcerations on the left calcaneus and abdominal folds. Today's labs have been reviewed, showing white blood cell count of 8.9, hemoglobin of 10.3, his INR today is 6.1, sodium is 136, potassium is 5.7, there are 3 large lites were within normal limits, renal profile is slightly improved, with BUN of 91, creatinine of 2.57 On 03/20/2020 patient seen in follow-up on selective care unit, he is currently up in the recliner, in no acute distress, denies any shortness of breath, room air pulse ox is 96%, afebrile, hemodynamically stable, his labs today have been reviewed, white blood cell count is 7.4, hemoglobin is 9.7, INR is 6.3, with no evidence of bleeding, potassium is 5.5, chloride is 109, renal profile is improving, BUN is down to 92, and creatinine is 1.94. Current antibiotic coverage is in the form of cefepime and vancomycin, his wound cultures from the groin came back positive for Enterobacter and methicillin-resistant staph aureus, blood culture was positive for MRSA, and urine culture came back positive for ESBL Proteus mirabilis, and antibiotic coverage will be switched over to meropenem with vancomycin. Patient has no specific complaints, no nausea vomiting or diarrhea, he is voiding. Objective - Vital Signs Vital signs: Vital Signs Temp 96.6 F L 03/20/20 16:00 Pulse 71 03/20/20 16:00 Resp 18 03/20/20 16:00 BP 116/58 03/20/20 16:00 Pulse Ox 96 03/20/20 16:00 Intake & Output 03/19/20 03/20/20 03/20/20 18:59 06:59 18:59 Intake Total 540 652 Output Total 200 1 900 Balance 340 -1 -248 Weight 125.5 kg Intake: Oral 540 652 Output: Urine 200 1 900 Coude 200 Other: Voiding Method Indwelling Catheter Urinal Urinal # Voids 250 1 # Bowel Movements 3 2 - Exam GENERAL EXAM: Alert, very pleasant obese 74-year-old white male, on room air, with pulse ox of 95% comfortable in no apparent distress. HEAD: Normocephalic/atraumatic. EYES: Normal reaction of pupils, equal size. Conjunctiva pink, sclera white. NOSE: Clear with pink turbinates. THROAT: No erythema or exudates. NECK: No masses, no JVD, no thyroid enlargement, no adenopathy. CHEST: No chest wall deformity. Symmetrical expansion. LUNGS: Equal air entry with no crackles, wheeze, rhonchi or dullness. CVS: Regular rate and rhythm, normal S1 and S2, no gallops, no murmurs, no rubs ABDOMEN: Soft, nontender. No hepatosplenomegaly, normal bowel sounds, no guarding or rigidity. EXTREMITIES: No clubbing, no edema, no cyanosis, 2+ pulses and upper and lower extremities. MUSCULOSKELETAL: Muscle strength and tone normal. SPINE: No scoliosis or deformity SKIN: Bilateral abdominal ulcerations, and maceration with excoriation, left medial calcaneal ulceration CENTRAL NERVOUS SYSTEM: Alert and oriented -3. No focal deficits, tone is normal in all 4 extremities. PSYCHIATRIC: Alert and oriented -3. Appropriate affect. Intact judgment and insight. - Labs CBC & Chem 7: 03/20/20 07:06 03/20/20 07:06 Labs: Abnormal Lab Results - Last 24 Hours (Table) 03/19/20 03/19/20 03/19/20 Range/Units 16:43 17:06 20:10 RBC (4.30-5.90) m/uL Hgb (13.0-17.5) gm/dL Hct (39.0-53.0) % MCV (80.0-100.0) fL MCHC (31.0-37.0) g/dL Neutrophils # (1.3-7.7) k/uL Lymphocytes # (1.0-4.8) k/uL PT (9.0-12.0) sec INR (<1.2) Potassium 6.0 H (3.5-5.1) mmol/L Chloride (98-107) mmol/L BUN (9-20) mg/dL Creatinine (0.66-1.25) mg/dL Glucose (74-99) mg/dL POC Glucose (mg/dL) 145 H 229 H (75-99) mg/dL Calcium (8.4-10.2) mg/dL Magnesium (1.6-2.3) mg/dL Total Protein (6.3-8.2) g/dL Albumin (3.5-5.0) g/dL 03/19/20 03/20/20 03/20/20 Range/Units 22:14 06:15 07:06 RBC 2.97 L (4.30-5.90) m/uL Hgb 9.7 L (13.0-17.5) gm/dL Hct 31.4 L (39.0-53.0) % MCV 105.7 H (80.0-100.0) fL MCHC 30.7 L (31.0-37.0) g/dL Neutrophils # 8.5 H (1.3-7.7) k/uL Lymphocytes # 0.9 L (1.0-4.8) k/uL PT (9.0-12.0) sec INR (<1.2) Potassium 5.8 H (3.5-5.1) mmol/L Chloride (98-107) mmol/L BUN (9-20) mg/dL Creatinine (0.66-1.25) mg/dL Glucose (74-99) mg/dL POC Glucose (mg/dL) 116 H (75-99) mg/dL Calcium (8.4-10.2) mg/dL Magnesium (1.6-2.3) mg/dL Total Protein (6.3-8.2) g/dL Albumin (3.5-5.0) g/dL 03/20/20 03/20/20 03/20/20 Range/Units 07:06 07:06 12:26 RBC (4.30-5.90) m/uL Hgb (13.0-17.5) gm/dL Hct (39.0-53.0) % MCV (80.0-100.0) fL MCHC (31.0-37.0) g/dL Neutrophils # (1.3-7.7) k/uL Lymphocytes # (1.0-4.8) k/uL PT 64.1 H (9.0-12.0) sec INR 6.3 H* (<1.2) Potassium 5.5 H (3.5-5.1) mmol/L Chloride 109 H (98-107) mmol/L BUN 92 H (9-20) mg/dL Creatinine 1.94 H (0.66-1.25) mg/dL Glucose 109 H (74-99) mg/dL POC Glucose (mg/dL) 143 H (75-99) mg/dL Calcium 8.3 L (8.4-10.2) mg/dL Magnesium 2.6 H (1.6-2.3) mg/dL Total Protein 5.5 L (6.3-8.2) g/dL Albumin 2.7 L (3.5-5.0) g/dL Microbiology - Last 24 Hours (Table) 03/17/20 20:27 Gram Stain - Final Groin Wound Culture - Final Enterobacter cloacae Methicillin resist S. aureus 03/17/20 14:48 Blood Culture Gram Stain - Final Blood Blood Culture - Final Methicillin resist S. aureus 03/17/20 14:27 Urine Culture - Final Urine,Voided Proteus mirabilis 03/17/20 14:48 Blood Culture - Preliminary Blood No Growth after 48 hours Assessment and Plan Plan: Assessment: 1 Penile erosion secondary to catheter with suspected infection with secondary cellulitis, questionable early necrotizing fasciitis of the scrotal and the groin area. Wound cultures showed MRSA, Enterobacter cloacae 2 MRSA bacteremia 3 gram-negative urinary tract infection, related to ESBL Proteus mirabilis 4 acute kidney injury with secondary hyperkalemia, improving 5 nonhealing wounds under the abdominal folds, and left calcaneal area 6 obstructive uropathy with a indwelling Clinton catheter in place 7 advanced dementia with impairment in cognitive functions 8 chronic atrial fibrillation with a supratherapeutic PT/INR while on Coumadin 9 history of aortic valve replacement 10 supratherapeutic PT/INR without evidence of an acute bleed 11 hypertension 12 obstructive sleep apnea. 13 history of pacemaker insertion for symptomatically bradycardia 14 COPD currently on room air oxygen with a pulse ox of 94% 15 chronic anemia 16 hyperlipidemia 17 history of previous CVA with expressive aphasia 18 BPH Plan: Switch antibiotic coverage to meropenem, continue with vancomycin, discontinue cefepime, patient has been afebrile, will need follow-up blood cultures, vital signs are stable, no altered mentation, we'll continue to follow I performed a history & physical examination of the patient and discussed their management with my nurse practitioner, Gabbi Graves. I reviewed the nurse practitioner's note and agree with the documented findings and plan of care. Lung sounds are positive for clear breath sound. The findings and the impression was discussed with the patient. I attest to the documentation by the nurse practitioner. Time with Patient: Less than 30
[2020-03-20 17:32] LABS: Glucose,Whole Blood 129 mg/dL (75-99)
[2020-03-20] MEDS ORDERED: PHYTONADIONE ORAL 5 MG/5 ML ORAL.SYRG PO STA (17:35)
--- NOTE | 2020-03-20 17:44 | P.PN ---
Subjective Progress Note Date: 03/20/20 Te Brady is a 74-year-old male patient who presented to the ER from rehab with complaints of increased O fungal rash in the groin eroding foreskin secondary to catheter. Patient also had acute kidney injury and elevated INR. Patient's past medical history of atrial fibrillation which she is maintained on Coumadin, heart failure, COPD, dementia, hypertension, myocardial infarction, osteoarthritis with sleep apnea in which he uses home CPAP machine, pacemaker, anxiety and heart valve replacement. Patient's creatinine upon admission 3.07 and bun 77 potassium also elevated at 56. INR greater than 10. UA positive for the same Estrace. Chest x-ray completed showing T over the left lower lung r egion correlate for atelectasis or pneumonia. At this time patient has been started on Rocephin and Levaquin for IV antibiotics. Urology services have been consulted. Nephrology service is consulted for acute kidney injury. Potassium lowering cocktail given per nephrology. Dr. zavala and has been consulted for pulmonary due to possible pneumonia. Wound and blood cultures ordered. at this time patient denies chest pain or shortness of breath. Patient denies nausea vomiting or diarrhea. On 03/19/2020 patient was seen and examined on the medical floor he is alert and oriented 3 in no apparent distress, he is complaining of diarrhea with stool incontinence, otherwise he denies any complaints there is no fever or chills no headache or dizziness, no chest pain no shortness of breath no cough no nausea or vomiting no abdominal pain no blood in the stools no burning with urination no frequency or urgency and no hematuria 03/20/2020 patient was seen and examined on the medical floor he is alert and oriented 3 in no apparent distress there is no fever or chills no headache or d izziness no chest pain no shortness of breath no cough no nausea or vomiting no abdominal pain no diarrhea no blood in the stools no burning with urination no frequency or urgency and no hematuria. Clinton catheter has been removed and patient is able to urinate. INR is still elevated patient will be getting vitamin K 2.5 mg by mouth 1 time today Objective - Vital Signs Vital signs: Vital Signs Temp 96.6 F L 03/20/20 16:00 Pulse 71 03/20/20 16:00 Resp 18 03/20/20 16:00 BP 116/58 03/20/20 16:00 Pulse Ox 96 03/20/20 16:00 Intake & Output 03/19/20 03/20/20 03/20/20 18:59 06:59 18:59 Intake Total 540 652 Output Total 200 1 900 Balance 340 -1 -248 Weight 125.5 kg Intake: Oral 540 652 Output: Urine 200 1 900 Coude 200 Other: Voiding Method Indwelling Catheter Urinal Urinal # Voids 250 1 # Bowel Movements 3 2 - Exam Head normocephalic and atraumatic Neck supple no JVD no goiter Lungs clear to auscultation bilaterally no wheezing or crackles Heart irregular rate. known atrial fibrillation Abdomen is soft nontender nondistended positive bowel sounds no hepatosplenomegaly Extremities no edema no cyanosis or clubbing Neuro alert and orientated to 2. Dementia Drainage noted to penile area around catheter. Erosion to groin area. - Labs CBC & Chem 7: 03/20/20 07:06 03/20/20 07:06 Labs: Abnormal Lab Results - Last 24 Hours (Table) 03/19/20 03/19/20 03/19/20 Range/Units 16:43 17:06 20:10 RBC (4.30-5.90) m/uL Hgb (13.0-17.5) gm/dL Hct (39.0-53.0) % MCV (80.0-100.0) fL MCHC (31.0-37.0) g/dL Neutrophils # (1.3-7.7) k/uL Lymphocytes # (1.0-4.8) k/uL PT (9.0-12.0) sec INR (<1.2) Potassium 6.0 H (3.5-5.1) mmol/L Chloride (98-107) mmol/L BUN (9-20) mg/dL Creatinine (0.66-1.25) mg/dL Glucose (74-99) mg/dL POC Glucose (mg/dL) 145 H 229 H (75-99) mg/dL Calcium (8.4-10.2) mg/dL Magnesium (1.6-2.3) mg/dL Total Protein (6.3-8.2) g/dL Albumin (3.5-5.0) g/dL 03/19/20 03/20/20 03/20/20 Range/Units 22:14 06:15 07:06 RBC 2.97 L (4.30-5.90) m/uL Hgb 9.7 L (13.0-17.5) gm/dL Hct 31.4 L (39.0-53.0) % MCV 105.7 H (80.0-100.0) fL MCHC 30.7 L (31.0-37.0) g/dL Neutrophils # 8.5 H (1.3-7.7) k/uL Lymphocytes # 0.9 L (1.0-4.8) k/uL PT (9.0-12.0) sec INR (<1.2) Potassium 5.8 H (3.5-5.1) mmol/L Chloride (98-107) mmol/L BUN (9-20) mg/dL Creatinine (0.66-1.25) mg/dL Glucose (74-99) mg/dL POC Glucose (mg/dL) 116 H (75-99) mg/dL Calcium (8.4-10.2) mg/dL Magnesium (1.6-2.3) mg/dL Total Protein (6.3-8.2) g/dL Albumin (3.5-5.0) g/dL 03/20/20 03/20/20 03/20/20 Range/Units 07:06 07:06 12:26 RBC (4.30-5.90) m/uL Hgb (13.0-17.5) gm/dL Hct (39.0-53.0) % MCV (80.0-100.0) fL MCHC (31.0-37.0) g/dL Neutrophils # (1.3-7.7) k/uL Lymphocytes # (1.0-4.8) k/uL PT 64.1 H (9.0-12.0) sec INR 6.3 H* (<1.2) Potassium 5.5 H (3.5-5.1) mmol/L Chloride 109 H (98-107) mmol/L BUN 92 H (9-20) mg/dL Creatinine 1.94 H (0.66-1.25) mg/dL Glucose 109 H (74-99) mg/dL POC Glucose (mg/dL) 143 H (75-99) mg/dL Calcium 8.3 L (8.4-10.2) mg/dL Magnesium 2.6 H (1.6-2.3) mg/dL Total Protein 5.5 L (6.3-8.2) g/dL Albumin 2.7 L (3.5-5.0) g/dL Microbiology - Last 24 Hours (Table) 03/17/20 20:27 Gram Stain - Final Groin Wound Culture - Final Enterobacter cloacae Methicillin resist S. aureus 03/17/20 14:48 Blood Culture Gram Stain - Final Blood Blood Culture - Final Methicillin resist S. aureus 03/17/20 14:27 Urine Culture - Final Urine,Voided Proteus mirabilis 03/17/20 14:48 Blood Culture - Preliminary Blood No Growth after 48 hours Assessment and Plan Assessment: 1. Infection around catheter site with penile erosion. Wound cultures have been obtained. Blood cultures ordered. Patient started on Levaquin and Rocephin. Urology consult placed 2. Acute kidney injury with elevated potassium. Creatinine elevated at 3.06 upon admission. Continue normal saline at 50. Potassium lowing cocktail ordered per nephrology services 3. Supratherapeutic INR. Hold Coumadin and recheck 4. Possible pneumonia. Patient started on Levaquin and Rocephin. Pulmonary service is consulted 5. History of insulin-dependent diabetes mellitus 6. History of essential hypertension 7. History of hyperlipidemia. Maintained on statin 8. History of stroke with suppressive aphasia 9. History of morbid obesity 10. History of urinary retention and difficulty with Clinton insertion. Urology services have been consulted 11. Dementia. Maintained on Aricept and Namenda 12. Diarrhea will check stools for C. diff DVT prophylaxis SCDs due to subtherapeutic INR. GI prophylaxis Protonix Urology, nephrology and pulmonary service is consulted Levaquin and Rocephin for IV antibiotics wound and blood cultures ordered Coumadin on hold
[2020-03-20 20:35] LABS: Glucose,Whole Blood 151 mg/dL (75-99)
[2020-03-20] MEDS: TAMSULOSIN 0.4 MG CAP.ER.24H PO SCH (20:50)
[2020-03-20] MEDS: ATORVASTATIN 10 MG TAB PO SCH (20:50)
[2020-03-20] MEDS: DONEPEZIL 10 MG TAB PO SCH (20:50)
[2020-03-21] MEDS ORDERED: VANCOMYCIN 2,250 MG in SODIUM CHLORIDE 0.9% 500 ML 500 ML IVPB SCH ×2
[2020-03-21 06:09] LABS: Glucose,Whole Blood 126 mg/dL (75-99)
[2020-03-21] MEDS: FERROUS SULFATE 325 MG TAB PO SCH (06:28)
[2020-03-21] MEDS: PANTOPRAZOLE 40 MG TABLET PO SCH (06:28)
[2020-03-21] MEDS: MIDODRINE 5 MG TAB PO SCH (06:28)
[2020-03-21] MEDS: MAGNESIUM OXIDE 400 MG TAB PO SCH (06:28)
[2020-03-21] MEDS: CHOLECALCIFEROL 1,000 UNIT TAB PO SCH (06:28)
[2020-03-21] MEDS: METOPROLOL SUCCINATE (ER) 50 MG TAB.ER.24H PO SCH (06:28)
[2020-03-21 07:50] LABS: Basophils # (A) 0.1 k/uL (0-0.2); Basophils % (A) 1 %; Eosinophils # (A) 0.2 k/uL (0-0.7); Eosinophils % (A) 1 %; HCT 31.8 % (39.0-53.0); Hypochromasia Moderate; Lymphocytes # (A) 0.9 k/uL (1.0-4.8); Lymphocytes % (A) 7 %; MCH 33.2 pg (25.0-35.0); MCHC 31.5 g/dL (31.0-37.0); MCV 105.6 fL (80.0-100.0); Macrocytosis Moderate; Mean Platelet Volume 7.5; Monocytes # (A) 0.9 k/uL (0-1.0); Monocytes % (A) 7 %; Neutrophils # (A) 10.7 k/uL (1.3-7.7); Neutrophils % (A) 83 %; Platelet Count 211 k/uL (150-450); RBC 3.01 m/uL (4.30-5.90); RDW 14.8 % (11.5-15.5); WBC 12.9 k/uL (3.8-10.6)
[2020-03-21 08:02] LABS: INR 3.5 (<1.2); Prothrombin Time 33.8 sec (9.0-12.0)
[2020-03-21 08:07] LABS: Albumin 2.9 g/dL (3.5-5.0); Calcium 8.7 mg/dL (8.4-10.2); Magnesium 2.6 mg/dL (1.6-2.3); Potassium 5.4 mmol/L (3.5-5.1); Total Protein 5.9 g/dL (6.3-8.2)
--- NOTE | 2020-03-21 08:30 | P.PN ---
Progress Note - Text Progress Note Date: 03/21/20 Mr. Brady's Clinton catheter is out, and he is voiding without difficulty. His serum creatinine level this morning is improved to 1.49. He was advised to follow-up in 1 month for office cystoscopy. Please notify me if I can be of any further assistance.
[2020-03-21] MEDS: SYMBICORT 160-4.5 MCG INHALER INHALATION SCH ×2 (09:10→19:29)
[2020-03-21] MEDS: MEMANTINE 5 MG TAB PO SCH ×2 (09:38→20:36)
[2020-03-21] MEDS: FLUCONAZOLE 100 MG TAB PO SCH (09:38)
[2020-03-21] MEDS: MEROPENEM 2 GM in SODIUM CHLORIDE 0.9% 100 ML IVPB SCH ×4 (09:38→20:36)
[2020-03-21] MEDS: HYDROCORTISONE 10 MG TAB PO SCH ×2 (09:38→20:35)
[2020-03-21] MEDS: CLOTRIMAZOLE/BETAMETH 1-0.05% CREAM 45 GM TUBE TOPICAL SCH ×2 (09:39→20:41)
[2020-03-21] MEDS: VANCOMYCIN 2,250 MG in SODIUM CHLORIDE 0.9% 500 ML 500 ML IVPB SCH ×2 (09:55→19:11)
--- NOTE | 2020-03-21 11:15 | P.PN ---
Subjective Progress Note Date: 03/21/20 Te Brady is a 74-year-old male patient who presented to the ER from rehab with complaints of increased O fungal rash in the groin eroding foreskin secondary to catheter. Patient also had acute kidney injury and elevated INR. Patient's past medical history of atrial fibrillation which she is maintained on Coumadin, heart failure, COPD, dementia, hypertension, myocardial infarction, osteoarthritis with sleep apnea in which he uses home CPAP machine, pacemaker, anxiety and heart valve replacement. Patient's creatinine upon admission 3.07 and bun 77 potassium also elevated at 56. INR greater than 10. UA positive for the same Estrace. Chest x-ray completed showing T over the left lower lung r egion correlate for atelectasis or pneumonia. At this time patient has been started on Rocephin and Levaquin for IV antibiotics. Urology services have been consulted. Nephrology service is consulted for acute kidney injury. Potassium lowering cocktail given per nephrology. Dr. zavala and has been consulted for pulmonary due to possible pneumonia. Wound and blood cultures ordered. at this time patient denies chest pain or shortness of breath. Patient denies nausea vomiting or diarrhea. On 03/19/2020 patient was seen and examined on the medical floor he is alert and oriented 3 in no apparent distress, he is complaining of diarrhea with stool incontinence, otherwise he denies any complaints there is no fever or chills no headache or dizziness, no chest pain no shortness of breath no cough no nausea or vomiting no abdominal pain no blood in the stools no burning with urination no frequency or urgency and no hematuria 03/20/2020 patient was seen and examined on the medical floor he is alert and oriented 3 in no apparent distress there is no fever or chills no headache or d izziness no chest pain no shortness of breath no cough no nausea or vomiting no abdominal pain no diarrhea no blood in the stools no burning with urination no frequency or urgency and no hematuria. Clinton catheter has been removed and patient is able to urinate. INR is still elevated patient will be getting vitamin K 2.5 mg by mouth 1 time today on 03/21/2020 patient is alert and oriented 3currently sitting up in chair. INR today 3.5. patient maintained on meropenem and vancomycin for IV an tibiotics. At that time Clinton catheter has been removed to patient voiding independently will follow-up outpatient with urology for possible cystoscopy. At this time patient denies chest pain or shortness of breath. Patient denies nausea vomiting or diarrhea. Patient denies any urinary burning or frequency Objective - Vital Signs Vital signs: Vital Signs Temp 98.9 F 03/20/20 20:00 Pulse 76 03/21/20 04:00 Resp 22 03/21/20 04:00 BP 147/65 03/21/20 04:00 Pulse Ox 96 03/21/20 04:00 Intake & Output 03/20/20 03/21/20 03/21/20 18:59 06:59 18:59 Intake Total 1662 Output Total 1000 1200 Balance 662 -1200 Weight 120 kg Intake: Intake, IV Titration 650 Amount Cefepime 1 gm In Sodium 50 Chloride 0.9% 50 ml @ 12. 5 mls/hr IVPB Q12HR PAU Rx#:[id number] Meropenem 2 gm In Sodium 100 Chloride 0.9% 100 ml @ 33 .3 mls/hr IVPB Q8HR PAU Rx#:[id number] Vancomycin 2,250 mg In 500 Sodium Chloride 0.9% 500 ml 500 ml @ 167 mls/hr IVPB DAILY PAU Rx#: [id number] Oral 1012 Output: Urine 1000 1200 Other: Voiding Method Urinal Urinal # Voids 1 1 # Bowel Movements 2 - Exam Head normocephalic and atraumatic Neck supple no JVD no goiter Lungs clear to auscultation bilaterally no wheezing or crackles Heart irregular rate. known atrial fibrillation Abdomen is soft nontender nondistended positive bowel sounds no hepatosplenomegaly Extremities no edema no cyanosis or clubbing Neuro alert and orientated to 2. Dementia Drainage noted to penile area around catheter. Erosion to groin area. - Labs CBC & Chem 7: 03/21/20 07:01 03/21/20 07:01 Labs: Abnormal Lab Results - Last 24 Hours (Table) 03/20/20 03/20/20 03/20/20 Range/Units 12:26 17:28 20:34 WBC (3.8-10.6) k/uL RBC (4.30-5.90) m/uL Hgb (13.0-17.5) gm/dL Hct (39.0-53.0) % MCV (80.0-100.0) fL Neutrophils # (1.3-7.7) k/uL Lymphocytes # (1.0-4.8) k/uL PT (9.0-12.0) sec INR (<1.2) Potassium (3.5-5.1) mmol/L Chloride (98-107) mmol/L BUN (9-20) mg/dL Creatinine (0.66-1.25) mg/dL Glucose (74-99) mg/dL POC Glucose (mg/dL) 143 H 129 H 151 H (75-99) mg/dL Magnesium (1.6-2.3) mg/dL Total Protein (6.3-8.2) g/dL Albumin (3.5-5.0) g/dL 03/21/20 03/21/20 03/21/20 Range/Units 06:08 07:01 07:01 WBC 12.9 H (3.8-10.6) k/uL RBC 3.01 L (4.30-5.90) m/uL Hgb 10.0 L (13.0-17.5) gm/dL Hct 31.8 L (39.0-53.0) % MCV 105.6 H (80.0-100.0) fL Neutrophils # 10.7 H (1.3-7.7) k/uL Lymphocytes # 0.9 L (1.0-4.8) k/uL PT (9.0-12.0) sec INR (<1.2) Potassium 5.4 H (3.5-5.1) mmol/L Chloride 111 H (98-107) mmol/L BUN 76 H (9-20) mg/dL Creatinine 1.49 H (0.66-1.25) mg/dL Glucose 115 H (74-99) mg/dL POC Glucose (mg/dL) 126 H (75-99) mg/dL Magnesium 2.6 H (1.6-2.3) mg/dL Total Protein 5.9 L (6.3-8.2) g/dL Albumin 2.9 L (3.5-5.0) g/dL 03/21/20 Range/Units 07:01 WBC (3.8-10.6) k/uL RBC (4.30-5.90) m/uL Hgb (13.0-17.5) gm/dL Hct (39.0-53.0) % MCV (80.0-100.0) fL Neutrophils # (1.3-7.7) k/uL Lymphocytes # (1.0-4.8) k/uL PT 33.8 H (9.0-12.0) sec INR 3.5 H (<1.2) Potassium (3.5-5.1) mmol/L Chloride (98-107) mmol/L BUN (9-20) mg/dL Creatinine (0.66-1.25) mg/dL Glucose (74-99) mg/dL POC Glucose (mg/dL) (75-99) mg/dL Magnesium (1.6-2.3) mg/dL Total Protein (6.3-8.2) g/dL Albumin (3.5-5.0) g/dL Microbiology - Last 24 Hours (Table) 03/17/20 14:48 Blood Culture - Preliminary Blood No Growth after 72 hours 03/17/20 20:27 Gram Stain - Final Groin Wound Culture - Final Enterobacter cloacae Methicillin resist S. aureus 03/17/20 14:48 Blood Culture Gram Stain - Final Blood Blood Culture - Final Methicillin resist S. aureus Assessment and Plan Assessment: 1. Infection around catheter site with penile erosion. wound culture showing MRSA Enterobacter cloacae. Patient currently on vancomycin and meropenem critical care services are following 2. MRSA bacteremia repeat blood cultures ordered 3. Gram-negative urinary tract infection related to ESBL Proteus mirabilis. Patient remains on meropenem and vancomycin 4. Acute kidney injury with elevated potassium. Creatinine elevated at 3.06 upon admission. Continue normal saline at 50. Potassium lowing cocktail ordered per nephrology services. kidney numbers are trending down 5. Supratherapeutic INR. Hold Coumadin and recheck. patient did receive vitamin K. Current INR 3.5 6. Possible pneumonia. Patient started on Levaquin and Rocephin. Pulmonary service is consulted 7. History of insulin-dependent diabetes mellitus 8. History of essential hypertension 9. History of hyperlipidemia. Maintained on statin 10. History of stroke with suppressive aphasia 11. History of morbid obesity 12. History of urinary retention and difficulty with Clinton insertion. per urology servicesFoley catheter has been removed patient advised follow-up in one month with urology services for cystoscopy 13. Dementia. Maintained on Aricept and Namenda 14. Diarrhea will check stools for C. diff DVT prophylaxis SCDs due to subtherapeutic INR. GI prophylaxis Protonix Urology, nephrology and pulmonary services are following Patient maintained on vancomycin and meropenem repeat blood cultures ordered
--- NOTE | 2020-03-21 12:14 | PN ---
PROGRESS NOTE Patient is seen for followup for hypotension, acute kidney injury. Patient's renal function has improved with improvement in blood pressure. Creatinine is down to 1.49 from 3.0 on initial admission. Patient's blood pressure is improved with initiation of steroids. He is being treated for adrenal insufficiency as serum cortisol was significantly low around 2 am and his cosyntropin stimulation test for ACTH stimulation test was positive. Blood pressure is now staying about 130-140 mmHg and patient has not needed midodrine. PHYSICAL EXAMINATION: Today, he is comfortable, awake, not in any acute distress. Sitting up in a bedside chair. Blood pressure is 147/65, heart rate 76 per minute, he is afebrile. Examination of the heart S1, S2. Examination of the lungs, bilateral breath sounds are heard. Decreased breath sounds at bases. Abdomen is soft, obese, nontender. Examination of the lower extremities shows edema 2+, upper and lower extremities, bilaterally. Multiple bruising noted in the skin. LABS: Show sodium 140, potassium 5.4, chloride 111. CO2 is 25, BUN 76, creatinine 1.49, hemoglobin 10.0 g/dL. ASSESSMENT: 1. Acute kidney injury, associated with hypotension, hypoperfusion, currently improving. 2. Adrenal insufficiency maintained on cortisol. 3. Hypotension associated with renal insufficiency, currently improved. I will discontinue the midodrine. 4. Mild hyperkalemia from associated with acute kidney injury and adrenal insufficiency, currently improving, but further improvement with use of Lasix and I will give a dose of IV Lasix today. 5. History of bladder cancer. 6. Urine retention with a Clinton catheter placement, currently status post removal on March 19, 2020 with a good urine output. 7. Urinary tract infection with scrotal edema, penile erosion, maintained on antibiotics. Blood cultures and wound cultures positive for MRSA. PLAN: Repeat IV Lasix, continue on a daily basis for now and DC midodrine. Continue with Cortef and repeat labs in a.m. Avoid nephrotoxic medications. MMODL / IJN: [id number] /
[2020-03-21 12:43] LABS: Glucose,Whole Blood 143 mg/dL (75-99)
--- NOTE | 2020-03-21 13:13 | P.PN ---
Subjective Progress Note Date: 03/21/20 This is a 74-year-old gentleman with documented history of hypertension, persistent atrial fibrillation, COPD, obstructive sleep apnea, family history of premature coronary artery disease, dementia, nicotine dependence, single chamber pacemaker, history of mitral valve replacement with mechanical valve in July [address] Katz in the office. His last office visit was in January of this year. Patient was originally sent over to the hospital from an extended care facility due to concern of an infection of his penis/scrotum. He was noted to have a significant rash in his groin area eroding into the foreskin area. He is known to have bladder cancer as well. He has a chronically indwelling Clinton catheter which was apparently placed a week ago. Most of the history was obtained from the medical record as the patient does have underlying dementia. A wound culture was performed which revealed gram-negative bacilli, presumptive MRSA, blood culture showed MSSA and urine culture positive for gram-negative bacilli. Patient developed acute kidney injury, he is on Coumadin for anticoagulation at home, his INR has been supratherapeutic and for this reason the Coumadin on hold. The patient was seen and examined this morning, overall he states he feels well. He slept well last night. Blood pressure 146/90 with a heart rate of 80, 95% on room air. White blood cell count 10.4, hemoglobin 9.7, platelet count 288. Pro time today 64.1 with an INR of 6.3. Sodium 137, potassium 5.5, BUN 92 and creatinine 1.9. 03/21/2020 Patient was seen and examined this morning, he sitting up in his chair at bedside today overall feeling significantly better. Blood pressure 146/60 with a heart rate in the 70s 96% on room air INR today is 3.5 sodium 140, potassium 5.4, BUN 76, creatinine 1.4. Objective - Vital Signs Vital signs: Vital Signs Temp 97.9 F 03/21/20 12:00 Pulse 73 03/21/20 12:00 Resp 20 03/21/20 12:00 BP 155/70 03/21/20 12:00 Pulse Ox 96 03/21/20 12:00 Intake & Output 03/20/20 03/21/20 03/21/20 18:59 06:59 18:59 Intake Total 1662 720 Output Total 1000 1200 400 Balance 662 -1200 320 Weight 120 kg Intake: Intake, IV Titration 650 Amount Cefepime 1 gm In Sodium 50 Chloride 0.9% 50 ml @ 12. 5 mls/hr IVPB Q12HR PAU Rx#:[id number] Meropenem 2 gm In Sodium 100 Chloride 0.9% 100 ml @ 33 .3 mls/hr IVPB Q8HR PAU Rx#:[id number] Vancomycin 2,250 mg In 500 Sodium Chloride 0.9% 500 ml 500 ml @ 167 mls/hr IVPB DAILY PAU Rx#: [id number] Oral 1012 720 Output: Urine 1000 1200 400 Other: Voiding Method Urinal Urinal Urinal # Voids 1 1 1 # Bowel Movements 2 1 - Exam PHYSICAL EXAMINATION: GENERAL: 74-year-old gentleman in no acute distress at the time of my examination HEENT: Head is atraumatic, normocephalic. Pupils equal, round. Sclera anicteric. Conjunctiva are clear. Mucous membranes of the mouth are moist. Neck is supple. There is no elevated jugular venous pressure. No carotid bruit is heard. HEART EXAMINATION: Heart S1, S2 irregularly irregular . CHEST EXAMINATION: Lungs are clear to auscultation and precussion. No chest wall tenderness is noted on palpation or with deep breathing. ABDOMEN: Soft, nontender. Bowel sounds are heard. No organomegaly noted. EXTREMITIES: 2+ peripheral pulses with no evidence of peripheral edema and no calf tenderness noted. NEUROLOGIC patient is awake, alert and oriented 3 . . - Labs CBC & Chem 7: 03/21/20 07:01 03/21/20 07:01 Labs: Abnormal Lab Results - Last 24 Hours (Table) 03/20/20 03/20/20 03/21/20 Range/Units 17:28 20:34 06:08 WBC (3.8-10.6) k/uL RBC (4.30-5.90) m/uL Hgb (13.0-17.5) gm/dL Hct (39.0-53.0) % MCV (80.0-100.0) fL Neutrophils # (1.3-7.7) k/uL Lymphocytes # (1.0-4.8) k/uL PT (9.0-12.0) sec INR (<1.2) Potassium (3.5-5.1) mmol/L Chloride (98-107) mmol/L BUN (9-20) mg/dL Creatinine (0.66-1.25) mg/dL Glucose (74-99) mg/dL POC Glucose (mg/dL) 129 H 151 H 126 H (75-99) mg/dL Magnesium (1.6-2.3) mg/dL Total Protein (6.3-8.2) g/dL Albumin (3.5-5.0) g/dL 03/21/20 03/21/20 03/21/20 Range/Units 07:01 07:01 07:01 WBC 12.9 H (3.8-10.6) k/uL RBC 3.01 L (4.30-5.90) m/uL Hgb 10.0 L (13.0-17.5) gm/dL Hct 31.8 L (39.0-53.0) % MCV 105.6 H (80.0-100.0) fL Neutrophils # 10.7 H (1.3-7.7) k/uL Lymphocytes # 0.9 L (1.0-4.8) k/uL PT 33.8 H (9.0-12.0) sec INR 3.5 H (<1.2) Potassium 5.4 H (3.5-5.1) mmol/L Chloride 111 H (98-107) mmol/L BUN 76 H (9-20) mg/dL Creatinine 1.49 H (0.66-1.25) mg/dL Glucose 115 H (74-99) mg/dL POC Glucose (mg/dL) (75-99) mg/dL Magnesium 2.6 H (1.6-2.3) mg/dL Total Protein 5.9 L (6.3-8.2) g/dL Albumin 2.9 L (3.5-5.0) g/dL 03/21/20 Range/Units 12:40 WBC (3.8-10.6) k/uL RBC (4.30-5.90) m/uL Hgb (13.0-17.5) gm/dL Hct (39.0-53.0) % MCV (80.0-100.0) fL Neutrophils # (1.3-7.7) k/uL Lymphocytes # (1.0-4.8) k/uL PT (9.0-12.0) sec INR (<1.2) Potassium (3.5-5.1) mmol/L Chloride (98-107) mmol/L BUN (9-20) mg/dL Creatinine (0.66-1.25) mg/dL Glucose (74-99) mg/dL POC Glucose (mg/dL) 143 H (75-99) mg/dL Magnesium (1.6-2.3) mg/dL Total Protein (6.3-8.2) g/dL Albumin (3.5-5.0) g/dL Microbiology - Last 24 Hours (Table) 03/17/20 14:48 Blood Culture - Preliminary Blood No Growth after 72 hours 03/17/20 20:27 Gram Stain - Final Groin Wound Culture - Final Enterobacter cloacae Methicillin resist S. aureus 03/17/20 14:48 Blood Culture Gram Stain - Final Blood Blood Culture - Final Methicillin resist S. aureus Assessment and Plan Plan: Assessment and plan #1 penile erosion secondary to catheter with suspected infection #2 MSSA bacteremia #3 acute kidney injury #4 nonhealing wounds under the abdominal folds #5 obstructive uropathy with indwelling Clinton catheter which has been removed, patient is voiding #6 advanced dementia #7 chronic persistent atrial fibrillation with supratherapeutic INR, Coumadin on hold #8 history of mitral valve replacement with mechanical valve #9 hypertension #10 obstructive sleep apnea #11 history of pacemaker #12 COPD #13 chronic anemia #14 hyperlipidemia #15 history of prior CVA Plan INR today is 3.5, we'll give the patient to a half milligrams of Coumadin today. Check daily PT/INRs DNP note has been reviewed, I agree with a documented findings and plan of care. Patient was seen and examined.
[2020-03-21 17:40] LABS: Glucose,Whole Blood 147 mg/dL (75-99)
[2020-03-21] MEDS ORDERED: WARFARIN 2.5 MG TAB PO ONE (18:00)
[2020-03-21] MEDS ORDERED: FUROSEMIDE 40 MG TAB PO STA (18:03)
[2020-03-21] MEDS: FUROSEMIDE 10 MG/ML 4 ML VIAL IV SCH (18:08)
[2020-03-21] MEDS: DONEPEZIL 10 MG TAB PO SCH (20:36)
[2020-03-21] MEDS: TAMSULOSIN 0.4 MG CAP.ER.24H PO SCH (20:36)
[2020-03-21] MEDS: ATORVASTATIN 10 MG TAB PO SCH (20:36)
[2020-03-21 20:40] LABS: Glucose,Whole Blood 214 mg/dL (75-99)
[2020-03-22] MEDS: MEROPENEM 2 GM in SODIUM CHLORIDE 0.9% 100 ML IVPB SCH ×3 (03:31→20:36)
[2020-03-22] MEDS ORDERED: VANCOMYCIN 2,250 MG in SODIUM CHLORIDE 0.9% 500 ML 500 ML IVPB SCH (04:00)
[2020-03-22] MEDS: CHOLECALCIFEROL 1,000 UNIT TAB PO SCH (06:02)
[2020-03-22] MEDS: PANTOPRAZOLE 40 MG TABLET PO SCH (06:02)
[2020-03-22] MEDS: FERROUS SULFATE 325 MG TAB PO SCH (06:02)
[2020-03-22] MEDS: MAGNESIUM OXIDE 400 MG TAB PO SCH (06:02)
[2020-03-22] MEDS: METOPROLOL SUCCINATE (ER) 50 MG TAB.ER.24H PO SCH (06:02)
[2020-03-22 06:13] LABS: Glucose,Whole Blood 125 mg/dL (75-99)
[2020-03-22] MEDS: FUROSEMIDE 10 MG/ML 4 ML VIAL IV SCH (08:31)
[2020-03-22] MEDS: CLOTRIMAZOLE/BETAMETH 1-0.05% CREAM 45 GM TUBE TOPICAL SCH ×2 (08:31→20:36)
[2020-03-22] MEDS: FLUCONAZOLE 100 MG TAB PO SCH (08:31)
[2020-03-22] MEDS: MEMANTINE 5 MG TAB PO SCH ×2 (08:31→20:35)
[2020-03-22] MEDS: HYDROCORTISONE 10 MG TAB PO SCH ×2 (08:39→20:35)
[2020-03-22 08:53] LABS: Basophils # (A) 0.2 k/uL (0-0.2); Basophils % (A) 1 %; Eosinophils # (A) 0.2 k/uL (0-0.7); Eosinophils % (A) 2 %; HGB 9.2 gm/dL (13.0-17.5); Hypochromasia Moderate; Lymphocytes # (A) 0.9 k/uL (1.0-4.8); Lymphocytes % (A) 7 %; MCH 33.5 pg (25.0-35.0); MCHC 31.9 g/dL (31.0-37.0); MCV 105.1 fL (80.0-100.0); Macrocytosis Moderate; Mean Platelet Volume 7.4; Monocytes # (A) 0.8 k/uL (0-1.0); Monocytes % (A) 6 %; Neutrophils # (A) 10.9 k/uL (1.3-7.7); Neutrophils % (A) 83 %; Platelet Count 239 k/uL (150-450); RBC 2.76 m/uL (4.30-5.90); RDW 15.1 % (11.5-15.5); WBC 13.2 k/uL (3.8-10.6)
[2020-03-22 09:05] LABS: INR 2.5 (<1.2); Prothrombin Time 24.1 sec (9.0-12.0)
[2020-03-22 09:07] LABS: Albumin 2.7 g/dL (3.5-5.0); Calcium 8.6 mg/dL (8.4-10.2); Total Bilirubin 0.9 mg/dL (0.2-1.3); Total Protein 5.6 g/dL (6.3-8.2)
[2020-03-22] MEDS: SYMBICORT 160-4.5 MCG INHALER INHALATION SCH ×2 (09:44→20:23)
[2020-03-22] MEDS: VANCOMYCIN 2,250 MG in SODIUM CHLORIDE 0.9% 500 ML 500 ML IVPB SCH (11:05)
[2020-03-22 11:57] LABS: Glucose,Whole Blood 141 mg/dL (75-99)
--- NOTE | 2020-03-22 12:34 | P.PN ---
Subjective Progress Note Date: 03/22/20 This is a 74-year-old gentleman with documented history of hypertension, persistent atrial fibrillation, COPD, obstructive sleep apnea, family history of premature coronary artery disease, dementia, nicotine dependence, single chamber pacemaker, history of mitral valve replacement with mechanical valve in July [address] Katz in the office. His last office visit was in January of this year. Patient was originally sent over to the hospital from an extended care facility due to concern of an infection of his penis/scrotum. He was noted to have a significant rash in his groin area eroding into the foreskin area. He is known to have bladder cancer as well. He has a chronically indwelling Clinton catheter which was apparently placed a week ago. Most of the history was obtained from the medical record as the patient does have underlying dementia. A wound culture was performed which revealed gram-negative bacilli, presumptive MRSA, blood culture showed MSSA and urine culture positive for gram-negative bacilli. Patient developed acute kidney injury, he is on Coumadin for anticoagulation at home, his INR has been supratherapeutic and for this reason the Coumadin on hold. The patient was seen and examined this morning, overall he states he feels well. He slept well last night. Blood pressure 146/90 with a heart rate of 80, 95% on room air. White blood cell count 10.4, hemoglobin 9.7, platelet count 288. Pro time today 64.1 with an INR of 6.3. Sodium 137, potassium 5.5, BUN 92 and creatinine 1.9. 03/21/2020 Patient was seen and examined this morning, he sitting up in his chair at bedside today overall feeling significantly better. Blood pressure 146/60 with a heart rate in the 70s 96% on room air INR today is 3.5 sodium 140, potassium 5.4, BUN 76, creatinine 1.4. 03/22/2020 A shunt seen and examined this morning, continues to do well, feeling better every day. Blood pressure 132/60 with a heart rate of 80, 96% on 2 L of oxygen. White blood cell count 13.2, hemoglobin 9.2, platelet count 239. INR today 2.5, sodium 141, potassium 5.0, BUN 63, creatinine 1.1. Objective - Vital Signs Vital signs: Vital Signs Temp 98.1 F 03/22/20 11:18 Pulse 80 11/05/20 11:18 Resp 18 03/22/20 11:18 BP 132/63 03/22/20 11:18 Pulse Ox 96 03/22/20 11:18 Intake & Output 03/21/20 03/22/20 03/22/20 18:59 06:59 18:59 Intake Total 1440 480 Output Total 400 700 Balance 1040 -700 480 Weight 120 kg 152.6 kg Intake: Oral 1440 480 Output: Urine 400 700 Other: Voiding Method Urinal Urinal Urinal # Voids 1 2 # Bowel Movements 1 1 - Exam PHYSICAL EXAMINATION: GENERAL: 74-year-old gentleman in no acute distress at the time of my examination HEENT: Head is atraumatic, normocephalic. Pupils equal, round. Sclera anicteric. Conjunctiva are clear. Mucous membranes of the mouth are moist. Neck is supple. There is no elevated jugular venous pressure. No carotid bruit is heard. HEART EXAMINATION: Heart S1, S2 irregularly irregular . CHEST EXAMINATION: Lungs are clear to auscultation and precussion. No chest wall tenderness is noted on palpation or with deep breathing. ABDOMEN: Soft, nontender. Bowel sounds are heard. No organomegaly noted. EXTREMITIES: 2+ peripheral pulses with no evidence of peripheral edema and no calf tenderness noted. NEUROLOGIC patient is awake, alert and oriented 3 . . - Labs CBC & Chem 7: 03/22/20 08:08 03/22/20 08:08 Labs: Abnormal Lab Results - Last 24 Hours (Table) 03/21/20 03/21/20 03/21/20 Range/Units 12:40 17:37 20:39 WBC (3.8-10.6) k/uL RBC (4.30-5.90) m/uL Hgb (13.0-17.5) gm/dL Hct (39.0-53.0) % MCV (80.0-100.0) fL Neutrophils # (1.3-7.7) k/uL Lymphocytes # (1.0-4.8) k/uL PT (9.0-12.0) sec INR (<1.2) Chloride (98-107) mmol/L BUN (9-20) mg/dL Glucose (74-99) mg/dL POC Glucose (mg/dL) 143 H 147 H 214 H (75-99) mg/dL Total Protein (6.3-8.2) g/dL Albumin (3.5-5.0) g/dL 03/22/20 03/22/20 03/22/20 Range/Units 06:12 08:08 08:08 WBC 13.2 H (3.8-10.6) k/uL RBC 2.76 L (4.30-5.90) m/uL Hgb 9.2 L (13.0-17.5) gm/dL Hct 29.0 L (39.0-53.0) % MCV 105.1 H (80.0-100.0) fL Neutrophils # 10.9 H (1.3-7.7) k/uL Lymphocytes # 0.9 L (1.0-4.8) k/uL PT 24.1 H (9.0-12.0) sec INR 2.5 H (<1.2) Chloride (98-107) mmol/L BUN (9-20) mg/dL Glucose (74-99) mg/dL POC Glucose (mg/dL) 125 H (75-99) mg/dL Total Protein (6.3-8.2) g/dL Albumin (3.5-5.0) g/dL 03/22/20 03/22/20 Range/Units 08:08 11:55 WBC (3.8-10.6) k/uL RBC (4.30-5.90) m/uL Hgb (13.0-17.5) gm/dL Hct (39.0-53.0) % MCV (80.0-100.0) fL Neutrophils # (1.3-7.7) k/uL Lymphocytes # (1.0-4.8) k/uL PT (9.0-12.0) sec INR (<1.2) Chloride 112 H (98-107) mmol/L BUN 63 H (9-20) mg/dL Glucose 112 H (74-99) mg/dL POC Glucose (mg/dL) 141 H (75-99) mg/dL Total Protein 5.6 L (6.3-8.2) g/dL Albumin 2.7 L (3.5-5.0) g/dL Microbiology - Last 24 Hours (Table) 03/20/20 18:45 Blood Culture - Preliminary Blood No Growth after 24 hours 03/20/20 18:30 Blood Culture - Preliminary Blood No Growth after 24 hours 03/17/20 14:48 Blood Culture - Preliminary Blood No Growth after 96 hours 03/17/20 22:09 Anaerobic Culture - Final Penis Anaerobic Gm Negative Bacilli Assessment and Plan Plan: Assessment and plan #1 penile erosion secondary to catheter with suspected infection #2 MSSA bacteremia #3 acute kidney injury #4 nonhealing wounds under the abdominal folds #5 obstructive uropathy with indwelling Clinton catheter which has been removed, patient is voiding #6 advanced dementia #7 chronic persistent atrial fibrillation with supratherapeutic INR, Coumadin on hold #8 history of mitral valve replacement with mechanical valve #9 hypertension #10 obstructive sleep apnea #11 history of pacemaker #12 COPD #13 chronic anemia #14 hyperlipidemia #15 history of prior CVA Plan INR today is 2.5, we'll give the patient 5mg of Coumadin today. Check daily PT/INRs DNP note has been reviewed, I agree with a documented findings and plan of care. Patient was seen and examined.
--- NOTE | 2020-03-22 13:09 | P.PN ---
Subjective Progress Note Date: 03/22/20 Te Brady is a 74-year-old male patient who presented to the ER from rehab with complaints of increased O fungal rash in the groin eroding foreskin secondary to catheter. Patient also had acute kidney injury and elevated INR. Patient's past medical history of atrial fibrillation which she is maintained on Coumadin, heart failure, COPD, dementia, hypertension, myocardial infarction, osteoarthritis with sleep apnea in which he uses home CPAP machine, pacemaker, anxiety and heart valve replacement. Patient's creatinine upon admission 3.07 and bun 77 potassium also elevated at 56. INR greater than 10. UA positive for the same Estrace. Chest x-ray completed showing T over the left lower lung r egion correlate for atelectasis or pneumonia. At this time patient has been started on Rocephin and Levaquin for IV antibiotics. Urology services have been consulted. Nephrology service is consulted for acute kidney injury. Potassium lowering cocktail given per nephrology. Dr. zavala and has been consulted for pulmonary due to possible pneumonia. Wound and blood cultures ordered. at this time patient denies chest pain or shortness of breath. Patient denies nausea vomiting or diarrhea. On 03/19/2020 patient was seen and examined on the medical floor he is alert and oriented 3 in no apparent distress, he is complaining of diarrhea with stool incontinence, otherwise he denies any complaints there is no fever or chills no headache or dizziness, no chest pain no shortness of breath no cough no nausea or vomiting no abdominal pain no blood in the stools no burning with urination no frequency or urgency and no hematuria 03/20/2020 patient was seen and examined on the medical floor he is alert and oriented 3 in no apparent distress there is no fever or chills no headache or d izziness no chest pain no shortness of breath no cough no nausea or vomiting no abdominal pain no diarrhea no blood in the stools no burning with urination no frequency or urgency and no hematuria. Clinton catheter has been removed and patient is able to urinate. INR is still elevated patient will be getting vitamin K 2.5 mg by mouth 1 time today on 03/21/2020 patient is alert and oriented 3currently sitting up in chair. INR today 3.5. patient maintained on meropenem and vancomycin for IV an tibiotics. At that time Clinton catheter has been removed to patient voiding independently will follow-up outpatient with urology for possible cystoscopy. At this time patient denies chest pain or shortness of breath. Patient denies nausea vomiting or diarrhea. Patient denies any urinary burning or frequency On 03/22/2020 patient was seen and examined on the medical floor he is alert and oriented 3 in no distress, he had the midline placed today and antibiotic were resumed, white blood count is elevated at 13.5, there is no fever or chills no headache or dizziness no chest pain no shortness of breath no cough no nausea or vomiting no abdominal pain no diarrhea and no urinary symptoms. Objective - Vital Signs Vital signs: Vital Signs Temp 98.1 F 03/22/20 11:18 Pulse 80 03/22/20 11:18 Resp 18 03/22/20 11:18 BP 132/63 03/22/20 11:18 Pulse Ox 96 03/22/20 11:18 Intake & Output 03/21/20 03/22/20 03/22/20 18:59 06:59 18:59 Intake Total 1440 480 Output Total 400 700 Balance 1040 -700 480 Weight 120 kg 152.6 kg Intake: Oral 1440 480 Output: Urine 400 700 Other: Voiding Method Urinal Urinal Urinal # Voids 1 2 # Bowel Movements 1 1 - Exam Head normocephalic and atraumatic Neck supple no JVD no goiter Lungs clear to auscultation bilaterally no wheezing or crackles Heart irregular rate. known atrial fibrillation Abdomen is soft nontender nondistended positive bowel sounds no hepatosplenomegaly Extremities no edema no cyanosis or clubbing Neuro alert and orientated to 2. Dementia Drainage noted to penile area around catheter. Erosion to groin area. - Labs CBC & Chem 7: 03/22/20 08:08 03/22/20 08:08 Labs: Abnormal Lab Results - Last 24 Hours (Table) 03/21/20 03/21/20 03/22/20 Range/Units 17:37 20:39 06:12 WBC (3.8-10.6) k/uL RBC (4.30-5.90) m/uL Hgb (13.0-17.5) gm/dL Hct (39.0-53.0) % MCV (80.0-100.0) fL Neutrophils # (1.3-7.7) k/uL Lymphocytes # (1.0-4.8) k/uL PT (9.0-12.0) sec INR (<1.2) Chloride (98-107) mmol/L BUN (9-20) mg/dL Glucose (74-99) mg/dL POC Glucose (mg/dL) 147 H 214 H 125 H (75-99) mg/dL Total Protein (6.3-8.2) g/dL Albumin (3.5-5.0) g/dL 03/22/20 03/22/20 03/22/20 Range/Units 08:08 08:08 08:08 WBC 13.2 H (3.8-10.6) k/uL RBC 2.76 L (4.30-5.90) m/uL Hgb 9.2 L (13.0-17.5) gm/dL Hct 29.0 L (39.0-53.0) % MCV 105.1 H (80.0-100.0) fL Neutrophils # 10.9 H (1.3-7.7) k/uL Lymphocytes # 0.9 L (1.0-4.8) k/uL PT 24.1 H (9.0-12.0) sec INR 2.5 H (<1.2) Chloride 112 H (98-107) mmol/L BUN 63 H (9-20) mg/dL Glucose 112 H (74-99) mg/dL POC Glucose (mg/dL) (75-99) mg/dL Total Protein 5.6 L (6.3-8.2) g/dL Albumin 2.7 L (3.5-5.0) g/dL 03/22/20 Range/Units 11:55 WBC (3.8-10.6) k/uL RBC (4.30-5.90) m/uL Hgb (13.0-17.5) gm/dL Hct (39.0-53.0) % MCV (80.0-100.0) fL Neutrophils # (1.3-7.7) k/uL Lymphocytes # (1.0-4.8) k/uL PT (9.0-12.0) sec INR (<1.2) Chloride (98-107) mmol/L BUN (9-20) mg/dL Glucose (74-99) mg/dL POC Glucose (mg/dL) 141 H (75-99) mg/dL Total Protein (6.3-8.2) g/dL Albumin (3.5-5.0) g/dL Microbiology - Last 24 Hours (Table) 03/20/20 18:45 Blood Culture - Preliminary Blood No Growth after 24 hours 03/20/20 18:30 Blood Culture - Preliminary Blood No Growth after 24 hours 03/17/20 14:48 Blood Culture - Preliminary Blood No Growth after 96 hours 03/17/20 22:09 Anaerobic Culture - Final Penis Anaerobic Gm Negative Bacilli Assessment and Plan Assessment: 1. Infection around catheter site with penile erosion. wound culture showing MRSA Enterobacter cloacae. Patient currently on vancomycin and meropenem critical care services are following 2. MRSA bacteremia repeat blood cultures ordered 3. Gram-negative urinary tract infection related to ESBL Proteus mirabilis. Patient remains on meropenem and vancomycin 4. Acute kidney injury with elevated potassium. Creatinine elevated at 3.06 upon admission. Continue normal saline at 50. Potassium lowing cocktail ordered per nephrology services. kidney numbers are trending down 5. Supratherapeutic INR. Hold Coumadin and recheck. patient did receive vitamin K. Current INR 3.5 6. Possible pneumonia. Patient started on Levaquin and Rocephin. Pulmonary service is consulted 7. History of insulin-dependent diabetes mellitus 8. History of essential hypertension 9. History of hyperlipidemia. Maintained on statin 10. History of stroke with suppressive aphasia 11. History of morbid obesity 12. History of urinary retention and difficulty with Clinton insertion. per urology servicesFoley catheter has been removed patient advised follow-up in one month with urology services for cystoscopy 13. Dementia. Maintained on Aricept and Namenda 14. Diarrhea will check stools for C. diff. 15. Nurse reporting that patient is making statements about being depressed, his is also concerned in that regard, at this time will restart patient on Wellbutrin SR 150 mg by mouth once daily DVT prophylaxis SCDs due to subtherapeutic INR. GI prophylaxis Protonix Urology, nephrology and pulmonary services are following Patient maintained on vancomycin and meropenem repeat blood cultures ordered
--- NOTE | 2020-03-22 15:00 | P.PN ---
Subjective Patient is seen in follow-up for acute kidney injury. Renal function improving. Potassium level 5.0 this morning. He has been voiding. Clinton catheter removed March 19. No vomiting or diarrhea. Oral intake is good. Blood pressure improved after starting Cortef. Vital signs are stable. General: The patient appeared well nourished and normally developed. HEENT: Head exam is unremarkable. Neck is without jugular venous distension. LUNGS: Breath sounds decreased. HEART: Rate and Rhythm are regular. ABDOMEN: Soft, nontender. Obese. EXTREMITITES: 1+ edema. Chronic skin changes noted. Objective - Vital Signs Vital signs: Vital Signs Temp 98.1 F 03/22/20 11:18 Pulse 80 03/22/20 11:18 Resp 18 03/22/20 11:18 BP 132/63 03/22/20 11:18 Pulse Ox 96 03/22/20 11:18 Intake & Output 03/21/20 03/22/20 03/22/20 18:59 06:59 18:59 Intake Total 1440 1200 Output Total 400 700 Balance 1040 -700 1200 Weight 120 kg 152.6 kg Intake: Intake, IV Titration 600 Amount Meropenem 2 gm In Sodium 100 Chloride 0.9% 100 ml @ 33 .3 mls/hr IVPB Q8H PAU Rx #:[id number] Vancomycin 2,250 mg In 500 Sodium Chloride 0.9% 500 ml 500 ml @ 167 mls/hr IVPB Q18H PAU Rx#: [id number] Oral 1440 600 Output: Urine 400 700 Other: Voiding Method Urinal Urinal Urinal # Voids 1 2 # Bowel Movements 1 1 - Labs CBC & Chem 7: 03/22/20 08:08 03/22/20 08:08 Labs: Abnormal Lab Results - Last 24 Hours (Table) 03/21/20 03/21/20 03/22/20 Range/Units 17:37 20:39 06:12 WBC (3.8-10.6) k/uL RBC (4.30-5.90) m/uL Hgb (13.0-17.5) gm/dL Hct (39.0-53.0) % MCV (80.0-100.0) fL Neutrophils # (1.3-7.7) k/uL Lymphocytes # (1.0-4.8) k/uL PT (9.0-12.0) sec INR (<1.2) Chloride (98-107) mmol/L BUN (9-20) mg/dL Glucose (74-99) mg/dL POC Glucose (mg/dL) 147 H 214 H 125 H (75-99) mg/dL Total Protein (6.3-8.2) g/dL Albumin (3.5-5.0) g/dL 03/22/20 03/22/20 03/22/20 Range/Units 08:08 08:08 08:08 WBC 13.2 H (3.8-10.6) k/uL RBC 2.76 L (4.30-5.90) m/uL Hgb 9.2 L (13.0-17.5) gm/dL Hct 29.0 L (39.0-53.0) % MCV 105.1 H (80.0-100.0) fL Neutrophils # 10.9 H (1.3-7.7) k/uL Lymphocytes # 0.9 L (1.0-4.8) k/uL PT 24.1 H (9.0-12.0) sec INR 2.5 H (<1.2) Chloride 112 H (98-107) mmol/L BUN 63 H (9-20) mg/dL Glucose 112 H (74-99) mg/dL POC Glucose (mg/dL) (75-99) mg/dL Total Protein 5.6 L (6.3-8.2) g/dL Albumin 2.7 L (3.5-5.0) g/dL 03/22/20 Range/Units 11:55 WBC (3.8-10.6) k/uL RBC (4.30-5.90) m/uL Hgb (13.0-17.5) gm/dL Hct (39.0-53.0) % MCV (80.0-100.0) fL Neutrophils # (1.3-7.7) k/uL Lymphocytes # (1.0-4.8) k/uL PT (9.0-12.0) sec INR (<1.2) Chloride (98-107) mmol/L BUN (9-20) mg/dL Glucose (74-99) mg/dL POC Glucose (mg/dL) 141 H (75-99) mg/dL Total Protein (6.3-8.2) g/dL Albumin (3.5-5.0) g/dL Microbiology - Last 24 Hours (Table) 03/20/20 18:45 Blood Culture - Preliminary Blood No Growth after 24 hours 03/20/20 18:30 Blood Culture - Preliminary Blood No Growth after 24 hours 03/17/20 14:48 Blood Culture - Preliminary Blood No Growth after 96 hours 03/17/20 22:09 Anaerobic Culture - Final Penis Anaerobic Gm Negative Bacilli Assessment and Plan Plan: Assessment: 1. Acute kidney injury secondary to ATN secondary to infection, diuresis and hypotension. Creatinine 3.07 on admission and is 1.14 today. Baseline creatinine near 1. Ultrasound from February 2020 revealed no evidence of hydronephrosis. Urine eosinophils 1%. 2. Hyperkalemia secondary to acute kidney injury. Improved after starting steroids and Lasix. 3. Coagulopathy status post vitamin K. 4. History of bladder cancer. 5. History of urinary retention status post Clinton catheter placement. It was removed March 19 due to infection. Urology following. 6. UTI and scrotal erythema and penile erosion. Currently on antibiotics. Urine culture positive for Proteus. Blood culture positive for MRSA. Wound culture positive for MRSA and Enterobacter. 7. Hypotension. Cortisol level noted to be low - cosyntropin stimulation test suggestive of adrenal insufficiency. Maintained on Cortef. Blood pressure better. 8. Dementia. Plan: I will change Lasix to 40 mg orally once daily. Low potassium diet. Continue to monitor renal function and urine output. Continue to monitor bladder scans to make sure no urinary retention. Maintain Cortef. He will need to follow-up with endocrinology outpatient. Monitor vancomycin levels. Dose to be adjusted for renal function.
[2020-03-22] MEDS: buPROPion SR 150 MG TABLET.ER PO SCH (15:21)
[2020-03-22 16:52] LABS: Glucose,Whole Blood 127 mg/dL (75-99)
[2020-03-22] MEDS ORDERED: WARFARIN 5 MG TAB PO ONE (18:00)
[2020-03-22] MEDS ORDERED: WARFARIN 2.5 MG TAB PO ONE (18:00)
[2020-03-22 20:33] LABS: Glucose,Whole Blood 144 mg/dL (75-99)
[2020-03-22] MEDS: DONEPEZIL 10 MG TAB PO SCH (20:35)
[2020-03-22] MEDS: ATORVASTATIN 10 MG TAB PO SCH (20:35)
[2020-03-22] MEDS: TAMSULOSIN 0.4 MG CAP.ER.24H PO SCH (20:35)
[2020-03-23] MEDS: MEROPENEM 2 GM in SODIUM CHLORIDE 0.9% 100 ML IVPB SCH ×3 (03:34→20:36)
[2020-03-23] MEDS: FERROUS SULFATE 325 MG TAB PO SCH (05:59)
[2020-03-23] MEDS: MAGNESIUM OXIDE 400 MG TAB PO SCH (06:00)
[2020-03-23] MEDS: METOPROLOL SUCCINATE (ER) 50 MG TAB.ER.24H PO SCH (06:00)
[2020-03-23] MEDS: PANTOPRAZOLE 40 MG TABLET PO SCH (06:00)
[2020-03-23] MEDS: CHOLECALCIFEROL 1,000 UNIT TAB PO SCH (06:00)
[2020-03-23] MEDS: VANCOMYCIN 2,250 MG in SODIUM CHLORIDE 0.9% 500 ML 500 ML IVPB SCH (06:00)
[2020-03-23 06:30] LABS: Glucose,Whole Blood 123 mg/dL (75-99)
[2020-03-23] MEDS: HYDROCORTISONE 10 MG TAB PO SCH ×2 (08:48→20:34)
[2020-03-23] MEDS: FLUCONAZOLE 100 MG TAB PO SCH (08:48)
[2020-03-23] MEDS: buPROPion SR 150 MG TABLET.ER PO SCH (08:48)
[2020-03-23] MEDS: MEMANTINE 5 MG TAB PO SCH ×2 (08:48→20:34)
[2020-03-23] MEDS: FUROSEMIDE 40 MG TAB PO SCH (08:48)
[2020-03-23] MEDS: CLOTRIMAZOLE/BETAMETH 1-0.05% CREAM 45 GM TUBE TOPICAL SCH ×2 (08:50→20:46)
[2020-03-23 09:41] LABS: HCT 27.6 % (39.0-53.0); HGB 8.7 gm/dL (13.0-17.5); Hypochromasia Moderate; MCHC 31.4 g/dL (31.0-37.0); MCV 105.1 fL (80.0-100.0); Macrocytosis Moderate; Mean Platelet Volume 7.7; Platelet Count 210 k/uL (150-450); RBC 2.63 m/uL (4.30-5.90); RDW 15.4 % (11.5-15.5); WBC 12.6 k/uL (3.8-10.6)
[2020-03-23 09:48] LABS: INR 3.1 (<1.2); Prothrombin Time 29.9 sec (9.0-12.0)
[2020-03-23 09:51] LABS: Calcium 8.6 mg/dL (8.4-10.2); Magnesium 2.1 mg/dL (1.6-2.3)
[2020-03-23 11:44] LABS: Glucose,Whole Blood 149 mg/dL (75-99)
[2020-03-23] MEDS: SYMBICORT 160-4.5 MCG INHALER INHALATION SCH ×3 (12:17→17:09)
--- NOTE | 2020-03-23 12:37 | P.PN ---
Subjective Patient is seen in follow-up for acute kidney injury. Renal function improving. Potassium level stable at 5.0 this morning. He has been voiding. Clinton catheter removed March 19. No vomiting or diarrhea. Oral intake is good. Blood pressure improved after starting Cortef. No changes overnight. More edematous today. Vital signs are stable. General: The patient appeared well nourished and normally developed. HEENT: Head exam is unremarkable. Neck is without jugular venous distension. LUNGS: Breath sounds decreased. HEART: Rate and Rhythm are regular. ABDOMEN: Soft, nontender. Obese. EXTREMITITES: 2+ edema. Chronic skin changes noted. Objective - Vital Signs Vital signs: Vital Signs Temp 97.7 F 03/23/20 12:05 Pulse 69 03/23/20 12:05 Resp 18 03/23/20 12:05 BP 123/62 03/23/20 12:05 Pulse Ox 98 03/23/20 12:05 Intake & Output 03/22/20 03/23/20 03/23/20 18:59 06:59 18:59 Intake Total 1920 240 420 Output Total 200 300 500 Balance 1720 -60 -80 Weight 151.8 kg Intake: Intake, IV Titration 1200 Amount Meropenem 2 gm In Sodium 200 Chloride 0.9% 100 ml @ 33 .3 mls/hr IVPB Q8H PAU Rx #:[id number] Vancomycin 2,250 mg In 1000 Sodium Chloride 0.9% 500 ml 500 ml @ 167 mls/hr IVPB Q18H PAU Rx#: [id number] Oral 720 240 420 Output: Urine 200 300 500 Other: Voiding Method Urinal # Voids 2 # Bowel Movements 1 - Labs CBC & Chem 7: 03/23/20 09:15 03/23/20 09:15 Labs: Abnormal Lab Results - Last 24 Hours (Table) 03/22/20 03/22/20 03/23/20 Range/Units 16:49 20:11 06:25 WBC (3.8-10.6) k/uL RBC (4.30-5.90) m/uL Hgb (13.0-17.5) gm/dL Hct (39.0-53.0) % MCV (80.0-100.0) fL PT (9.0-12.0) sec INR (<1.2) Chloride (98-107) mmol/L BUN (9-20) mg/dL Glucose (74-99) mg/dL POC Glucose (mg/dL) 127 H 144 H 123 H (75-99) mg/dL 03/23/20 03/23/20 03/23/20 Range/Units 09:15 09:15 09:15 WBC 12.6 H (3.8-10.6) k/uL RBC 2.63 L (4.30-5.90) m/uL Hgb 8.7 L (13.0-17.5) gm/dL Hct 27.6 L (39.0-53.0) % MCV 105.1 H (80.0-100.0) fL PT 29.9 H (9.0-12.0) sec INR 3.1 H (<1.2) Chloride 108 H (98-107) mmol/L BUN 56 H (9-20) mg/dL Glucose 143 H (74-99) mg/dL POC Glucose (mg/dL) (75-99) mg/dL 03/23/20 Range/Units 11:42 WBC (3.8-10.6) k/uL RBC (4.30-5.90) m/uL Hgb (13.0-17.5) gm/dL Hct (39.0-53.0) % MCV (80.0-100.0) fL PT (9.0-12.0) sec INR (<1.2) Chloride (98-107) mmol/L BUN (9-20) mg/dL Glucose (74-99) mg/dL POC Glucose (mg/dL) 149 H (75-99) mg/dL Microbiology - Last 24 Hours (Table) 03/20/20 18:45 Blood Culture - Preliminary Blood No Growth after 48 hours 03/20/20 18:30 Blood Culture - Preliminary Blood No Growth after 48 hours 03/17/20 14:48 Blood Culture - Preliminary Blood No Growth after 120 hours Assessment and Plan Plan: Assessment: 1. Acute kidney injury secondary to ATN secondary to infection, diuresis and hypotension. Creatinine 3.07 on admission and is 1.05 today. Baseline creatinine near 1. Ultrasound from February 2020 revealed no evidence of hydronephrosis. Urine eosinophils 1%. 2. Hyperkalemia secondary to acute kidney injury. Improved after starting steroids and Lasix. 3. Coagulopathy status post vitamin K. 4. History of bladder cancer. 5. History of urinary retention status post Clinton catheter placement. It was removed March 19 due to infection. Urology following. 6. UTI and scrotal erythema and penile erosion. Currently on antibiotics. Urine culture positive for Proteus. Blood culture positive for MRSA. Wound culture positive for MRSA and Enterobacter. 7. Hypotension. Cortisol level noted to be low - cosyntropin stimulation test suggestive of adrenal insufficiency. Maintained on Cortef. Blood pressure better. 8. Dementia. 9. Volume overload. Plan: Maintain Lasix 40 mg orally once daily. I will give him an additional dose of 40 mg IV this evening. Low potassium diet. Continue to monitor renal function and urine output. Continue to monitor bladder scans to make sure no urinary retention. Maintain Cortef. He will need to follow-up with endocrinology outpatient. Monitor vancomycin levels. Dose to be adjusted for renal function.
--- NOTE | 2020-03-23 13:52 | P.PN ---
Subjective Progress Note Date: 03/23/20 Te Brady is a 74-year-old male patient who presented to the ER from rehab with complaints of increased O fungal rash in the groin eroding foreskin secondary to catheter. Patient also had acute kidney injury and elevated INR. Patient's past medical history of atrial fibrillation which she is maintained on Coumadin, heart failure, COPD, dementia, hypertension, myocardial infarction, osteoarthritis with sleep apnea in which he uses home CPAP machine, pacemaker, anxiety and heart valve replacement. Patient's creatinine upon admission 3.07 and bun 77 potassium also elevated at 56. INR greater than 10. UA positive for the same Estrace. Chest x-ray completed showing T over the left lower lung r egion correlate for atelectasis or pneumonia. At this time patient has been started on Rocephin and Levaquin for IV antibiotics. Urology services have been consulted. Nephrology service is consulted for acute kidney injury. Potassium lowering cocktail given per nephrology. Dr. zavala and has been consulted for pulmonary due to possible pneumonia. Wound and blood cultures ordered. at this time patient denies chest pain or shortness of breath. Patient denies nausea vomiting or diarrhea. On 03/19/2020 patient was seen and examined on the medical floor he is alert and oriented 3 in no apparent distress, he is complaining of diarrhea with stool incontinence, otherwise he denies any complaints there is no fever or chills no headache or dizziness, no chest pain no shortness of breath no cough no nausea or vomiting no abdominal pain no blood in the stools no burning with urination no frequency or urgency and no hematuria 03/20/2020 patient was seen and examined on the medical floor he is alert and oriented 3 in no apparent distress there is no fever or chills no headache or d izziness no chest pain no shortness of breath no cough no nausea or vomiting no abdominal pain no diarrhea no blood in the stools no burning with urination no frequency or urgency and no hematuria. Clinton catheter has been removed and patient is able to urinate. INR is still elevated patient will be getting vitamin K 2.5 mg by mouth 1 time today on 03/21/2020 patient is alert and oriented 3currently sitting up in chair. INR today 3.5. patient maintained on meropenem and vancomycin for IV an tibiotics. At that time Clinton catheter has been removed to patient voiding independently will follow-up outpatient with urology for possible cystoscopy. At this time patient denies chest pain or shortness of breath. Patient denies nausea vomiting or diarrhea. Patient denies any urinary burning or frequency On 03/22/2020 patient was seen and examined on the medical floor he is alert and oriented 3 in no distress, he had the midline placed today and antibiotic were resumed, white blood count is elevated at 13.5, there is no fever or chills no headache or dizziness no chest pain no shortness of breath no cough no nausea or vomiting no abdominal pain no diarrhea and no urinary symptoms. On 03/23/2020 patient was seen and examined on the medical floor he is alert and oriented 3 in no apparent distress there is no fever or chills no headache or dizziness no chest pain no shortness of breath no cough no nausea or vomiting no abdominal pain no diarrhea and no urinary symptoms white blood count remains elevated, patient was resumed on IV antibiotic via midline will continue to monitor during this weekend. Objective - Vital Signs Vital signs: Vital Signs Temp 97.6 F 03/23/20 08:30 Pulse 67 03/23/20 08:30 Resp 19 03/23/20 08:30 BP 124/54 03/23/20 08:30 Pulse Ox 97 03/23/20 08:30 Intake & Output 03/22/20 03/23/20 03/23/20 18:59 06:59 18:59 Intake Total 1920 240 420 Output Total 200 300 Balance 1720 -60 420 Weight 151.8 kg Intake: Intake, IV Titration 1200 Amount Meropenem 2 gm In Sodium 200 Chloride 0.9% 100 ml @ 33 .3 mls/hr IVPB Q8H PAU Rx #:[id number] Vancomycin 2,250 mg In 1000 Sodium Chloride 0.9% 500 ml 500 ml @ 167 mls/hr IVPB Q18H PAU Rx#: [id number] Oral 720 240 420 Output: Urine 200 300 Other: Voiding Method Urinal # Voids 2 # Bowel Movements 1 - Exam Head normocephalic and atraumatic Neck supple no JVD no goiter Lungs clear to auscultation bilaterally no wheezing or crackles Heart irregular rate. known atrial fibrillation Abdomen is soft nontender nondistended positive bowel sounds no hep atosplenomegaly Extremities no edema no cyanosis or clubbing Neuro alert and orientated to 2. Dementia Drainage noted to penile area around catheter. Erosion to groin area. - Labs CBC & Chem 7: 03/23/20 09:15 03/23/20 09:15 Labs: Abnormal Lab Results - Last 24 Hours (Table) 03/22/20 03/22/20 03/22/20 Range/Units 11:55 16:49 20:11 WBC (3.8-10.6) k/uL RBC (4.30-5.90) m/uL Hgb (13.0-17.5) gm/dL Hct (39.0-53.0) % MCV (80.0-100.0) fL PT (9.0-12.0) sec INR (<1.2) Chloride (98-107) mmol/L BUN (9-20) mg/dL Glucose (74-99) mg/dL POC Glucose (mg/dL) 141 H 127 H 144 H (75-99) mg/dL 03/23/20 03/23/20 03/23/20 Range/Units 06:25 09:15 09:15 WBC (3.8-10.6) k/uL RBC (4.30-5.90) m/uL Hgb (13.0-17.5) gm/dL Hct (39.0-53.0) % MCV (80.0-100.0) fL PT 29.9 H (9.0-12.0) sec INR 3.1 H (<1.2) Chloride 108 H (98-107) mmol/L BUN 56 H (9-20) mg/dL Glucose 143 H (74-99) mg/dL POC Glucose (mg/dL) 123 H (75-99) mg/dL 03/23/20 Range/Units 09:15 WBC 12.6 H (3.8-10.6) k/uL RBC 2.63 L (4.30-5.90) m/uL Hgb 8.7 L (13.0-17.5) gm/dL Hct 27.6 L (39.0-53.0) % MCV 105.1 H (80.0-100.0) fL PT (9.0-12.0) sec INR (<1.2) Chloride (98-107) mmol/L BUN (9-20) mg/dL Glucose (74-99) mg/dL POC Glucose (mg/dL) (75-99) mg/dL Microbiology - Last 24 Hours (Table) 03/20/20 18:45 Blood Culture - Preliminary Blood No Growth after 48 hours 03/20/20 18:30 Blood Culture - Preliminary Blood No Growth after 48 hours 03/17/20 14:48 Blood Culture - Preliminary Blood No Growth after 120 hours Assessment and Plan Assessment: 1. Infection around catheter site with penile erosion. wound culture showing MRSA Enterobacter cloacae. Patient currently on vancomycin and meropenem critical care services are following 2. MRSA bacteremia repeat blood cultures ordered 3. Gram-negative urinary tract infection related to ESBL Proteus mirabilis. Patient remains on meropenem and vancomycin 4. Acute kidney injury with elevated potassium. Creatinine elevated at 3.06 upon admission. Continue normal saline at 50. Potassium lowing cocktail ordered per nephrology services. kidney numbers are trending down 5. Supratherapeutic INR. Hold Coumadin and recheck. patient did receive vitamin K. Current INR 3.5 6. Possible pneumonia. Patient started on Levaquin and Rocephin. Pulmonary service is consulted 7. History of insulin-dependent diabetes mellitus 8. History of essential hypertension 9. History of hyperlipidemia. Maintained on statin 10. History of stroke with suppressive aphasia 11. History of morbid obesity 12. History of urinary retention and difficulty with Clinton insertion. per urology servicesFoley catheter has been removed patient advised follow-up in one month with urology services for cystoscopy 13. Dementia. Maintained on Aricept and Namenda 14. Diarrhea will check stools for C. diff. 15. Nurse reporting that patient is making statements about being depressed, his is also concerned in that regard, at this time will restart patient on Wellbutrin SR 150 mg by mouth once daily DVT prophylaxis SCDs due to subtherapeutic INR. GI prophylaxis Protonix Urology, nephrology and pulmonary services are following Patient maintained on vancomycin and meropenem repeat blood cultures ordered
--- NOTE | 2020-03-23 14:31 | P.PN ---
Subjective Progress Note Date: 03/23/20 HISTORY OF PRESENT ILLNESS: Patient examined this morning at the bedside. He denies chest pain or pressure. Denies shortness of breath. INR 3.1. PHYSICAL EXAM: VITAL SIGNS: Reviewed. GENERAL: Well-developed in no acute distress. NECK: Supple. No JVD or thyromegaly LUNGS: Respirations even and unlabored. Lungs diminished HEART: Irregular rate and rhythm. S1 and S2 heard. EXTREMITIES: Normal range of motion. No clubbing or cyanosis. Peripheral pulses intact. 1+ bilateral lower extremity edema ASSESSMENT: Penile erosion secondary to catheter with suspected infection Acute kidney injury Chronic persistent atrial fibrillation Supratherapeutic INR History of aortic valve replacement History of pacemaker insertion secondary to sick sinus syndrome PLAN: Continue Coumadin dosing per pharmacy Monitor INR We will sign off. Please reconsult if needed. Nurse practitioner note has been reviewed by physician. Signing provider agrees with the documented findings, assessment, and plan of care. Objective - Vital Signs Vital signs: Vital Signs Temp 97.7 F 03/23/20 12:05 Pulse 69 03/23/20 12:05 Resp 18 03/23/20 12:05 BP 123/62 03/23/20 12:05 Pulse Ox 98 03/23/20 12:05 Intake & Output 03/22/20 03/23/20 03/23/20 18:59 06:59 18:59 Intake Total 1920 240 600 Output Total 200 300 500 Balance 1720 -60 100 Weight 151.8 kg Intake: Intake, IV Titration 1200 Amount Meropenem 2 gm In Sodium 200 Chloride 0.9% 100 ml @ 33 .3 mls/hr IVPB Q8H PAU Rx #:[id number] Vancomycin 2,250 mg In 1000 Sodium Chloride 0.9% 500 ml 500 ml @ 167 mls/hr IVPB Q18H PAU Rx#: [id number] Oral 720 240 600 Output: Urine 200 300 500 Other: Voiding Method Urinal # Voids 2 # Bowel Movements 1 - Labs CBC & Chem 7: 03/23/20 09:15 03/23/20 09:15 Labs: Abnormal Lab Results - Last 24 Hours (Table) 03/22/20 03/22/20 03/23/20 Range/Units 16:49 20:11 06:25 WBC (3.8-10.6) k/uL RBC (4.30-5.90) m/uL Hgb (13.0-17.5) gm/dL Hct (39.0-53.0) % MCV (80.0-100.0) fL PT (9.0-12.0) sec INR (<1.2) Chloride (98-107) mmol/L BUN (9-20) mg/dL Glucose (74-99) mg/dL POC Glucose (mg/dL) 127 H 144 H 123 H (75-99) mg/dL 03/23/20 03/23/20 03/23/20 Range/Units 09:15 09:15 09:15 WBC 12.6 H (3.8-10.6) k/uL RBC 2.63 L (4.30-5.90) m/uL Hgb 8.7 L (13.0-17.5) gm/dL Hct 27.6 L (39.0-53.0) % MCV 105.1 H (80.0-100.0) fL PT 29.9 H (9.0-12.0) sec INR 3.1 H (<1.2) Chloride 108 H (98-107) mmol/L BUN 56 H (9-20) mg/dL Glucose 143 H (74-99) mg/dL POC Glucose (mg/dL) (75-99) mg/dL 03/23/20 Range/Units 11:42 WBC (3.8-10.6) k/uL RBC (4.30-5.90) m/uL Hgb (13.0-17.5) gm/dL Hct (39.0-53.0) % MCV (80.0-100.0) fL PT (9.0-12.0) sec INR (<1.2) Chloride (98-107) mmol/L BUN (9-20) mg/dL Glucose (74-99) mg/dL POC Glucose (mg/dL) 149 H (75-99) mg/dL Microbiology - Last 24 Hours (Table) 03/20/20 18:45 Blood Culture - Preliminary Blood No Growth after 48 hours 03/20/20 18:30 Blood Culture - Preliminary Blood No Growth after 48 hours 03/17/20 14:48 Blood Culture - Preliminary Blood No Growth after 120 hours
[2020-03-23] MEDS ORDERED: VANCOMYCIN TROUGH DUE 1 EACH MISC MISCELLANE ONE (15:00)
[2020-03-23] MEDS ORDERED: FUROSEMIDE 10 MG/ML 4 ML VIAL IV ONE (16:00)
[2020-03-23 16:42] LABS: Glucose,Whole Blood 127 mg/dL (75-99)
[2020-03-23] MEDS ORDERED: WARFARIN 3 MG TAB PO ONE (18:00)
[2020-03-23 20:00] LABS: Glucose,Whole Blood 146 mg/dL (75-99)
[2020-03-23] MEDS: TAMSULOSIN 0.4 MG CAP.ER.24H PO SCH (20:34)
[2020-03-23] MEDS: DONEPEZIL 10 MG TAB PO SCH (20:34)
[2020-03-23] MEDS: ATORVASTATIN 10 MG TAB PO SCH (20:34)
[2020-03-24] MEDS: VANCOMYCIN 2,250 MG in SODIUM CHLORIDE 0.9% 500 ML 500 ML IVPB SCH ×2 (00:19→18:06)
[2020-03-24] MEDS: MEROPENEM 2 GM in SODIUM CHLORIDE 0.9% 100 ML IVPB SCH ×3 (03:51→22:03)
[2020-03-24 06:30] LABS: Glucose,Whole Blood 119 mg/dL (75-99)
[2020-03-24] MEDS: FERROUS SULFATE 325 MG TAB PO SCH (06:46)
[2020-03-24] MEDS: CHOLECALCIFEROL 1,000 UNIT TAB PO SCH (06:46)
[2020-03-24] MEDS: METOPROLOL SUCCINATE (ER) 50 MG TAB.ER.24H PO SCH (06:46)
[2020-03-24] MEDS: MAGNESIUM OXIDE 400 MG TAB PO SCH (06:47)
[2020-03-24] MEDS: PANTOPRAZOLE 40 MG TABLET PO SCH (06:47)
[2020-03-24 07:38] LABS: Basophils # (A) 0.1 k/uL (0-0.2); Basophils % (A) 1 %; Eosinophils # (A) 0.2 k/uL (0-0.7); Eosinophils % (A) 2 %; HCT 28.8 % (39.0-53.0); HGB 9.1 gm/dL (13.0-17.5); Hypochromasia Moderate; Lymphocytes # (A) 0.9 k/uL (1.0-4.8); Lymphocytes % (A) 7 %; MCH 33.3 pg (25.0-35.0); MCHC 31.6 g/dL (31.0-37.0); MCV 105.2 fL (80.0-100.0); Macrocytosis Moderate; Mean Platelet Volume 7.7; Monocytes # (A) 0.7 k/uL (0-1.0); Monocytes % (A) 6 %; Neutrophils # (A) 10.7 k/uL (1.3-7.7); Neutrophils % (A) 84 %; Platelet Count 216 k/uL (150-450); RBC 2.74 m/uL (4.30-5.90); WBC 12.8 k/uL (3.8-10.6)
[2020-03-24 07:50] LABS: Albumin 2.8 g/dL (3.5-5.0); Calcium 8.8 mg/dL (8.4-10.2); Potassium 4.7 mmol/L (3.5-5.1); Total Bilirubin 0.8 mg/dL (0.2-1.3); Total Protein 5.8 g/dL (6.3-8.2)
[2020-03-24 07:52] LABS: INR 3.8 (<1.2); Prothrombin Time 37.7 sec (9.0-12.0)
--- NOTE | 2020-03-24 09:00 | P.PN ---
Subjective Progress Note Date: 03/24/20 Te Brady is a 74-year-old male patient who presented to the ER from rehab with complaints of increased O fungal rash in the groin eroding foreskin secondary to catheter. Patient also had acute kidney injury and elevated INR. Patient's past medical history of atrial fibrillation which she is maintained on Coumadin, heart failure, COPD, dementia, hypertension, myocardial infarction, osteoarthritis with sleep apnea in which he uses home CPAP machine, pacemaker, anxiety and heart valve replacement. Patient's creatinine upon admission 3.07 and bun 77 potassium also elevated at 56. INR greater than 10. UA positive for the same Estrace. Chest x-ray completed showing T over the left lower lung r egion correlate for atelectasis or pneumonia. At this time patient has been started on Rocephin and Levaquin for IV antibiotics. Urology services have been consulted. Nephrology service is consulted for acute kidney injury. Potassium lowering cocktail given per nephrology. Dr. zavala and has been consulted for pulmonary due to possible pneumonia. Wound and blood cultures ordered. at this time patient denies chest pain or shortness of breath. Patient denies nausea vomiting or diarrhea. On 03/19/2020 patient was seen and examined on the medical floor he is alert and oriented 3 in no apparent distress, he is complaining of diarrhea with stool incontinence, otherwise he denies any complaints there is no fever or chills no headache or dizziness, no chest pain no shortness of breath no cough no nausea or vomiting no abdominal pain no blood in the stools no burning with urination no frequency or urgency and no hematuria 03/20/2020 patient was seen and examined on the medical floor he is alert and oriented 3 in no apparent distress there is no fever or chills no headache or d izziness no chest pain no shortness of breath no cough no nausea or vomiting no abdominal pain no diarrhea no blood in the stools no burning with urination no frequency or urgency and no hematuria. Clinton catheter has been removed and patient is able to urinate. INR is still elevated patient will be getting vitamin K 2.5 mg by mouth 1 time today on 03/21/2020 patient is alert and oriented 3currently sitting up in chair. INR today 3.5. patient maintained on meropenem and vancomycin for IV an tibiotics. At that time Clinton catheter has been removed to patient voiding independently will follow-up outpatient with urology for possible cystoscopy. At this time patient denies chest pain or shortness of breath. Patient denies nausea vomiting or diarrhea. Patient denies any urinary burning or frequency On 03/22/2020 patient was seen and examined on the medical floor he is alert and oriented 3 in no distress, he had the midline placed today and antibiotic were resumed, white blood count is elevated at 13.5, there is no fever or chills no headache or dizziness no chest pain no shortness of breath no cough no nausea or vomiting no abdominal pain no diarrhea and no urinary symptoms. On 03/23/2020 patient was seen and examined on the medical floor he is alert and oriented 3 in no apparent distress there is no fever or chills no headache or dizziness no chest pain no shortness of breath no cough no nausea or vomiting no abdominal pain no diarrhea and no urinary symptoms white blood count remains elevated, patient was resumed on IV antibiotic via midline will continue to monitor during this weekend. On 03/24/2020 patient was seen and examined on the medical floor he is alert and oriented in no apparent distress he is sitting up in chair he denies any complaints at this time there is no fever or chills no headache or dizziness no chest pain no shortness of breath no palpitation no cough no nausea or vomiting no abdominal pain no diarrhea no blood in the stools no burning with urination no frequency or urgency and no hematuria Objective - Vital Signs Vital signs: Vital Signs Temp 97.5 F L 03/24/20 04:00 Pulse 65 03/24/20 04:00 Resp 20 03/24/20 04:00 BP 155/68 03/24/20 04:00 Pulse Ox 96 03/24/20 04:00 Intake & Output 03/23/20 03/23/20 03/24/20 06:59 18:59 06:59 Intake Total 240 1050 Output Total 300 825 300 Balance -60 225 -300 Weight 151.8 kg 163.2 kg Intake: Oral 240 1050 Output: Urine 300 825 300 Other: Voiding Method Urinal # Voids 2 1 # Bowel Movements 1 1 - Exam Head normocephalic and atraumatic Neck supple no JVD no goiter Lungs clear to auscultation bilaterally no wheezing or crackles Heart irregular rate. known atrial fibrillation Abdomen is soft nontender nondistended positive bowel sounds no hepatosplenomegaly Extremities no edema no cyanosis or clubbing Neuro alert and orientated to 2. Dementia Drainage noted to penile area around catheter. Erosion to groin area. - Labs CBC & Chem 7: 03/24/20 06:36 03/24/20 06:36 Labs: Abnormal Lab Results - Last 24 Hours (Table) 03/23/20 03/23/20 03/23/20 Range/Units 06:25 09:15 09:15 WBC (3.8-10.6) k/uL RBC (4.30-5.90) m/uL Hgb (13.0-17.5) gm/dL Hct (39.0-53.0) % MCV (80.0-100.0) fL PT 29.9 H (9.0-12.0) sec INR 3.1 H (<1.2) Chloride 108 H (98-107) mmol/L BUN 56 H (9-20) mg/dL Glucose 143 H (74-99) mg/dL POC Glucose (mg/dL) 123 H (75-99) mg/dL 03/23/20 03/23/20 03/23/20 Range/Units 09:15 11:42 16:40 WBC 12.6 H (3.8-10.6) k/uL RBC 2.63 L (4.30-5.90) m/uL Hgb 8.7 L (13.0-17.5) gm/dL Hct 27.6 L (39.0-53.0) % MCV 105.1 H (80.0-100.0) fL PT (9.0-12.0) sec INR (<1.2) Chloride (98-107) mmol/L BUN (9-20) mg/dL Glucose (74-99) mg/dL POC Glucose (mg/dL) 149 H 127 H (75-99) mg/dL 03/23/20 Range/Units 19:59 WBC (3.8-10.6) k/uL RBC (4.30-5.90) m/uL Hgb (13.0-17.5) gm/dL Hct (39.0-53.0) % MCV (80.0-100.0) fL PT (9.0-12.0) sec INR (<1.2) Chloride (98-107) mmol/L BUN (9-20) mg/dL Glucose (74-99) mg/dL POC Glucose (mg/dL) 146 H (75-99) mg/dL Microbiology - Last 24 Hours (Table) 03/20/20 18:45 Blood Culture - Preliminary Blood No Growth after 72 hours 03/20/20 18:30 Blood Culture - Preliminary Blood No Growth after 72 hours 03/17/20 14:48 Blood Culture - Final Blood No Growth after 144 hours 03/17/20 22:09 Anaerobic Culture - Final Penis Anaerobic Gm Negative Bacilli Anaerobic Gm Negative Bacilli#2 Anaerobic Gm Negative Bacilli#3 Assessment and Plan Assessment: 1. Infection around catheter site with penile erosion. wound culture showing MRSA Enterobacter cloacae. Patient currently on vancomycin and meropenem critical care services are following 2. MRSA bacteremia repeat blood cultures ordered, maintained on IV vancomycin 3. Gram-negative urinary tract infection related to ESBL Proteus mirabilis. Patient remains on meropenem and vancomycin 4. Acute kidney injury with elevated potassium. Creatinine elevated at 3.06 upon admission. Continue normal saline at 50. Potassium lowing cocktail ordered per nephrology services. kidney numbers are trending down 5. Supratherapeutic INR. Hold Coumadin and recheck. patient did receive vitamin K. Current INR 3.5 6. Possible pneumonia. Patient started on Levaquin and Rocephin. Pulmonary service is consulted 7. History of insulin-dependent diabetes mellitus 8. History of essential hypertension 9. History of hyperlipidemia. Maintained on statin 10. History of stroke with suppressive aphasia 11. History of morbid obesity 12. History of urinary retention and difficulty with Clinton insertion. per urology servicesFoley catheter has been removed patient advised follow-up in one month with urology services for cystoscopy 13. Dementia. Maintained on Aricept and Namenda 14. Diarrhea will check stools for C. diff. 15. Nurse reporting that patient is making statements about being depressed, his is also concerned in that regard, at this time will restart patient on Wellbutrin SR 150 mg by mouth once daily DVT prophylaxis SCDs due to subtherapeutic INR. GI prophylaxis Protonix Urology, nephrology and pulmonary services are following Patient maintained on vancomycin and meropenem repeat blood cultures ordered
[2020-03-24] MEDS: buPROPion SR 150 MG TABLET.ER PO SCH (09:13)
[2020-03-24] MEDS: CLOTRIMAZOLE/BETAMETH 1-0.05% CREAM 45 GM TUBE TOPICAL SCH ×2 (09:13→20:50)
[2020-03-24] MEDS: HYDROCORTISONE 10 MG TAB PO SCH ×2 (09:13→20:46)
[2020-03-24] MEDS: FUROSEMIDE 40 MG TAB PO SCH (09:13)
[2020-03-24] MEDS: MEMANTINE 5 MG TAB PO SCH ×2 (09:13→20:46)
[2020-03-24] MEDS: FLUCONAZOLE 100 MG TAB PO SCH (09:13)
[2020-03-24] MEDS: SYMBICORT 160-4.5 MCG INHALER INHALATION SCH ×2 (09:41→20:19)
[2020-03-24 11:42] LABS: Glucose,Whole Blood 133 mg/dL (75-99)
--- NOTE | 2020-03-24 13:11 | PN ---
PROGRESS NOTE Patient is seen for followup for acute kidney injury. Renal function has improved. Serum creatinine staying at about 1.1-1.0 mg/dL. The patient is comfortable. He has significant edema upper and lower extremities. He is not significantly short of breath. PHYSICAL EXAMINATION: Blood pressure is 110/65, heart rate 65 per minute, he is saturating 98% on 2 L nasal cannula. Examination of the heart S1, S2. Examination of the lungs, bilateral breath sounds are heard. Decreased breath sounds at bases. Abdomen is soft, nontender. Examination of lower extremities shows bilateral edema 2+, upper and lower extremities. [employer]ER exam grossly intact. LAB: Show sodium of 138, potassium 4.7, chloride 105, CO2 is 31, BUN 55, creatinine 1.1, hemoglobin 9.1 g/dL. ASSESSMENT: 1. Acute kidney injury, currently improved significantly. Creatinine now at about 1.1- 1.0 mg/dL. 2. Adrenal insufficiency, maintained on Cortef. 3. Volume overload, changed to IV Lasix over the weekend. 4. Urinary tract infection with scrotal edema and penile erosion, maintained on antibiotics. Urine culture positive for Proteus. 5. MRSA bacteremia with wound culture positive for MRSA and Enterobacter. Repeat blood cultures negative on 03/20/2020. PLAN: Change Lasix to IV while patient is in the hospital. Encouraged to increase oral intake. MMODL / IJN: [id number] /
[2020-03-24] MEDS: FUROSEMIDE 10 MG/ML 4 ML VIAL IV SCH ×2 (13:29→22:03)
[2020-03-24 16:50] LABS: Glucose,Whole Blood 161 mg/dL (75-99)
[2020-03-24] MEDS ORDERED: VANCOMYCIN TROUGH DUE 1 EACH MISC MISCELLANE ONE (17:00)
[2020-03-24] MEDS ORDERED: WARFARIN 0.5 MG TAB PO ONE (18:00)
[2020-03-24 20:05] LABS: Glucose,Whole Blood 195 mg/dL (75-99)
[2020-03-24] MEDS: ATORVASTATIN 10 MG TAB PO SCH (20:46)
[2020-03-24] MEDS: TAMSULOSIN 0.4 MG CAP.ER.24H PO SCH (20:46)
[2020-03-24] MEDS: DONEPEZIL 10 MG TAB PO SCH (20:46)
--- NOTE | 2020-03-24 22:56 | P.CONS ---
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 for the patient has been treated by urology, patient was evaluated by urology during this admission and recommended discontinuation of the Clinton catheter, patient on admission to the hospital was afebrile, the patient did have mildly elevated white count of 11.3 subsequently normalized however he showing an upward trend now patient was noticed to be in acute renal failure, with elevated creatinine 3.07 subsequently the patient creatinine has normalized patient also have a positive UA on admission with a urine culture subsequently did grew ESBL Proteus mirabilis patient blood culture came back positive with MRSA with the culture from the groin also shows Enterobacter and MRSA blood culture repeat 11 3 has been negative patient is currently being treated with meropenem 2 g every 8 hours and vancomycin infectious disease was consulted for further management of antibiotic therapy, patient at time of evaluation overall feeling better denies having any chest pain shortness of breath or cough no nausea no vomiting no abdominal pain no diarrhea Review of Systems Positive point has been mentioned in the HPI rest of the systems are negative Past Medical History Past Medical History: Atrial Fibrillation, Heart Failure, COPD, Dementia, Hypertension, Myocardial Infarction (AL), Osteoarthritis (OA), Sleep Apnea/CPAP/BIPAP Additional Past Medical History / Comment(s): Dementia, COPD, history of aortic valve replacement, history of atrial fibrillation, history of symptomatic bradycardia requiring a pacemaker insertion, hypertension, osteoarthritis, obstructive sleep apnea, urinary retention currently has an indwelling Clinton catheter in place, exposure to agent orange Last Myocardial Infarction Date:: unsure History of Any Multi-Drug Resistant Organisms: ESBL, MRSA Year Discovered:: 03/17/20 MRSA ESBL 03/17/20 MDRO Source:: ESBL URINE GROIN MRSA Past Surgical History: Cholecystectomy, Hernia Repair, Joint Replacement, Pacemaker Additional Past Surgical History / Comment(s): Aortic valve replacement, Bilat cataract surgery, left knee replacement. hernia surgery Past Anesthesia/Blood Transfusion Reactions: No Reported Reaction Type of Cardiac Device: Permanent Pacemaker Device Placement Date:: 2016 Past Psychological History: Anxiety Additional Psychological History / Comment(s): dementia Smoking Status: Never smoker Past Alcohol Use History: None Reported Additional Past Alcohol Use History / Comment(s): starting smoking age 21, 2ppd quit 2009 Past Drug Use History: None Reported - Past Family History Mother Family Medical History: Cancer Additional Family Medical History / Comment(s): breast cancer Sister(s) Family Medical History: Cancer, Myocardial Infarction (AL) Father Family Medical History: Myocardial Infarction (AL) Medications and Allergies Home Medications Medication Instructions Recorded Confirmed Type Cholecalciferol [Vitamin D3 (25 2,000 unit PO DAILY@0700 04/19/17 03/17/20 History Mcg = 1000 Iu)] Donepezil [Aricept] 10 mg PO DAILY@199904/19/17 03/17/20 History Ferrous Sulfate [Iron (65 MG 325 mg PO DAILY@0700 04/19/17 03/17/20 History Elemental)] Memantine HCl [Namenda Xr] 28 mg PO DAILY@1200 04/19/17 03/17/20 History Warfarin [Coumadin] 10 mg PO MOTUWETHFRSA@159904/19/17 03/17/20 History Albuterol Sulfate [Proventil Hfa] 1 puff INHALATION RT-Q4H PRN 11/10/18 03/17/20 History Atorvastatin Calcium [Lipitor] 10 mg PO HS@199911/10/18 03/17/20 History Budesonide/Formoterol Fumarate 2 puff INHALATION RT-BID@0800,1600 11/10/18 03/17/20 History [Symbicort 160-4.5 Mcg Inhaler] Warfarin Sodium 5 mg PO LACY@159903/03/20 03/17/20 History Acetaminophen Tab [Tylenol] 650 mg PO Q6HR PRN tab 03/09/20 03/17/20 Rx oxyCODONE-APAP 5-325MG [Percocet 1 each PO Q4HR PRN tab 03/09/20 03/17/20 Rx 5-325 mg] Clotrimazole/Betamethasone Dip 1 applic TOPICAL BID 03/17/20 03/17/20 History [Lotrisone Cream] Furosemide [Lasix] 40 mg PO DAILY@0700 10/31/20 10/31/20 History Magnesium Oxide [Mag-Ox] 400 mg PO DAILY@69903/17/20 03/17/20 History Metoprolol Succinate (ER) [Toprol 50 mg PO DAILY@0703/17/20 03/17/20 History XL] Pantoprazole [Protonix] 40 mg PO DAILY@0603/17/20 03/17/20 History Tamsulosin [Flomax] 0.4 mg PO DAILY@199903/17/20 03/17/20 History Allergies Allergy/AdvReac Type Severity Reaction Status Date / Time amoxicillin Allergy Rash/Hives Verified 03/17/20 16:14 Penicillins Allergy Rash/Hives Verified 03/17/20 16:14 Physical Exam Vitals: Vital Signs Temp Pulse Resp BP BP Pulse Ox 03/24/20 12:00 16 03/24/20 08:00 65 16 110/65 98 03/24/20 06:38 63 03/24/20 04:00 97.5 F L 65 20 155/68 96 03/24/20 00:00 97.6 F 69 20 142/47 93 L 03/23/20 20:00 97.7 F 70 18 130/62 94 L 03/23/20 16:20 97.9 F 63 17 126/64 97 Intake and Output 03/23/20 03/24/20 03/24/20 22:59 06:59 14:59 Intake Total 450 420 Output Total 625 400 Balance -175 20 Intake: Oral 450 420 Output: Urine 625 400 Other: Voiding Method Urinal Urinal Urinal # Voids 1 1 # Bowel Movements 1 1 1 Weight 163.2 kg GENERAL DESCRIPTION: An elderly male lying in bed, no distress. No tachypnea or accessory muscle of respiration use. HEENT: Shows Pallor , no scleral icterus. Oral mucous membrane is dry. No pharyngeal erythema or thrush NECK: Trachea central, no thyromegaly. LUNGS: Unlabored breathing. Clear to auscultation anteriorly. No wheeze or crackle. HEART: S1, S2, regular rate and rhythm. No loud murmur ABDOMEN: Soft, no tenderness , guarding or rigidity, no organomegaly EXTREMITIES: Bilateral legs are currently wrapped up no obvious drainage and dressing SKIN: No rash, no masses palpable. NEUROLOGICAL: The patient is awake, alert, oriented x3, mood and affect normal. Results CBC & Chem 7: 03/24/20 06:36 03/24/20 06:36 Labs: Abnormal Lab Results - Last 24 Hours (Table) 03/23/20 03/23/20 03/24/20 Range/Units 16:40 19:59 06:29 WBC (3.8-10.6) k/uL RBC (4.30-5.90) m/uL Hgb (13.0-17.5) gm/dL Hct (39.0-53.0) % MCV (80.0-100.0) fL RDW (11.5-15.5) % Neutrophils # (1.3-7.7) k/uL Lymphocytes # (1.0-4.8) k/uL PT (9.0-12.0) sec INR (<1.2) Carbon Dioxide (22-30) mmol/L BUN (9-20) mg/dL Glucose (74-99) mg/dL POC Glucose (mg/dL) 127 H 146 H 119 H (75-99) mg/dL Total Protein (6.3-8.2) g/dL Albumin (3.5-5.0) g/dL 03/24/20 03/24/20 03/24/20 Range/Units 06:36 06:36 06:36 WBC 12.8 H (3.8-10.6) k/uL RBC 2.74 L (4.30-5.90) m/uL Hgb 9.1 L (13.0-17.5) gm/dL Hct 28.8 L (39.0-53.0) % MCV 105.2 H (80.0-100.0) fL RDW 16.0 H (11.5-15.5) % Neutrophils # 10.7 H (1.3-7.7) k/uL Lymphocytes # 0.9 L (1.0-4.8) k/uL PT 37.7 H (9.0-12.0) sec INR 3.8 H (<1.2) Carbon Dioxide 31 H (22-30) mmol/L BUN 55 H (9-20) mg/dL Glucose 103 H (74-99) mg/dL POC Glucose (mg/dL) (75-99) mg/dL Total Protein 5.8 L (6.3-8.2) g/dL Albumin 2.8 L (3.5-5.0) g/dL 03/24/20 Range/Units 11:41 WBC (3.8-10.6) k/uL RBC (4.30-5.90) m/uL Hgb (13.0-17.5) gm/dL Hct (39.0-53.0) % MCV (80.0-100.0) fL RDW (11.5-15.5) % Neutrophils # (1.3-7.7) k/uL Lymphocytes # (1.0-4.8) k/uL PT (9.0-12.0) sec INR (<1.2) Carbon Dioxide (22-30) mmol/L BUN (9-20) mg/dL Glucose (74-99) mg/dL POC Glucose (mg/dL) 133 H (75-99) mg/dL Total Protein (6.3-8.2) g/dL Albumin (3.5-5.0) g/dL Microbiology - Last 24 Hours (Table) 03/20/20 18:45 Blood Culture - Preliminary Blood No Growth after 72 hours 03/20/20 18:30 Blood Culture - Preliminary Blood No Growth after 72 hours 03/17/20 14:48 Blood Culture - Final Blood No Growth after 144 hours 03/17/20 22:09 Anaerobic Culture - Final Penis Anaerobic Gm Negative Bacilli Anaerobic Gm Negative Bacilli#2 Anaerobic Gm Negative Bacilli#3 Assessment and Plan Assessment: 1- patient presenting to the hospital with generalized weakness worsening rash to the bilateral groin area and this patient local culture from the groin as well as the blood culture positive for MRSA with a repeat blood cultures negative so far 2- patient with a chronic indwelling Clinton catheter with resulting trauma to his genital area and evidence of UTI with multidrug resistant Proteus mirabilis Plan: 1- we will repeat UA and culture 2-at just was meropenem to 1 g every 8 hours, however if the repeat a UA is negative will be able to discontinue 3-Vancomycin pharmacy to dose target trough of 15 while watching kidney function and Vanco trough closely for a total of 2 weeks from his negative blood culture We will follow on clinical condition and cultures to further adjust medication if needed Thank you for this consultation will follow this patient with you Time with Patient: Greater than 30
[2020-03-25] MEDS: MEROPENEM 1 GM in SODIUM CHLORIDE 0.9% 100 ML IVPB SCH ×4 (00:02→23:03)
[2020-03-25 05:45] LABS: Appearance,Urine Clear (Clear); Bilirubin,Urine Negative (Negative); Blood,Urine Negative (Negative); Color,Urine Yellow; Glucose,Urine (UA) Negative (Negative); Hyaline Casts,Urine 7 /lpf (0-2); Ketones,Urine Negative (Negative); Leukocyte Esterase,Urine Trace (Negative); Mucus,Urine Rare /hpf; Nitrite,Urine Negative (Negative); PH, Urine 5.5 (5.0-8.0); Protein,Urine Negative (Negative); RBC,Urine 2 /hpf (0-5); Specific Gravity,Urine 1.013 (1.001-1.035); Squamous Epithelial Cell,Urine <1 /hpf (0-4); Urobilinogen,Urine <2.0 mg/dL (<2.0); WBC,Urine 3 /hpf (0-5)
[2020-03-25 06:25] LABS: Glucose,Whole Blood 133 mg/dL (75-99)
[2020-03-25] MEDS: METOPROLOL SUCCINATE (ER) 50 MG TAB.ER.24H PO SCH (06:29)
[2020-03-25] MEDS: MAGNESIUM OXIDE 400 MG TAB PO SCH (06:29)
[2020-03-25] MEDS: CHOLECALCIFEROL 1,000 UNIT TAB PO SCH (06:29)
[2020-03-25] MEDS: PANTOPRAZOLE 40 MG TABLET PO SCH (06:30)
[2020-03-25] MEDS: FERROUS SULFATE 325 MG TAB PO SCH (06:30)
[2020-03-25] MEDS: FUROSEMIDE 10 MG/ML 4 ML VIAL IV SCH ×2 (08:56→20:05)
[2020-03-25] MEDS: FLUCONAZOLE 100 MG TAB PO SCH (08:56)
[2020-03-25] MEDS: MEMANTINE 5 MG TAB PO SCH ×2 (08:56→20:06)
[2020-03-25] MEDS: CLOTRIMAZOLE/BETAMETH 1-0.05% CREAM 45 GM TUBE TOPICAL SCH ×2 (08:57→20:06)
[2020-03-25] MEDS: buPROPion SR 150 MG TABLET.ER PO SCH (08:57)
[2020-03-25] MEDS: HYDROCORTISONE 10 MG TAB PO SCH ×2 (08:57→20:06)
[2020-03-25 09:16] LABS: Anisocytosis Slight; Basophils # (A) 0.1 k/uL (0-0.2); Basophils % (A) 1 %; Eosinophils # (A) 0.4 k/uL (0-0.7); Eosinophils % (A) 3 %; HCT 28.4 % (39.0-53.0); HGB 8.6 gm/dL (13.0-17.5); Hypochromasia Moderate; Lymphocytes % (A) 8 %; MCH 32.4 pg (25.0-35.0); MCHC 30.3 g/dL (31.0-37.0); MCV 106.6 fL (80.0-100.0); Macrocytosis Moderate; Mean Platelet Volume 7.6; Monocytes # (A) 0.7 k/uL (0-1.0); Monocytes % (A) 5 %; Neutrophils # (A) 10.3 k/uL (1.3-7.7); Neutrophils % (A) 83 %; Platelet Count 222 k/uL (150-450); Poikilocytosis Slight; RBC 2.66 m/uL (4.30-5.90); RDW 16.4 % (11.5-15.5); WBC 12.5 k/uL (3.8-10.6)
[2020-03-25] MEDS: SYMBICORT 160-4.5 MCG INHALER INHALATION SCH ×2 (09:19→19:43)
[2020-03-25 09:22] LABS: INR 4.8 (<1.2); Prothrombin Time 47.9 sec (9.0-12.0)
[2020-03-25 09:30] LABS: C Reactive Protein 38.9 mg/L (<10.0); Calcium 8.7 mg/dL (8.4-10.2)
--- NOTE | 2020-03-25 09:58 | P.PN ---
Subjective Progress Note Date: 03/25/20 Te Brady is a 74-year-old male patient who presented to the ER from rehab with complaints of increased O fungal rash in the groin eroding foreskin secondary to catheter. Patient also had acute kidney injury and elevated INR. Patient's past medical history of atrial fibrillation which she is maintained on Coumadin, heart failure, COPD, dementia, hypertension, myocardial infarction, osteoarthritis with sleep apnea in which he uses home CPAP machine, pacemaker, anxiety and heart valve replacement. Patient's creatinine upon admission 3.07 and bun 77 potassium also elevated at 56. INR greater than 10. UA positive for the same Estrace. Chest x-ray completed showing T over the left lower lung r egion correlate for atelectasis or pneumonia. At this time patient has been started on Rocephin and Levaquin for IV antibiotics. Urology services have been consulted. Nephrology service is consulted for acute kidney injury. Potassium lowering cocktail given per nephrology. Dr. zavala and has been consulted for pulmonary due to possible pneumonia. Wound and blood cultures ordered. at this time patient denies chest pain or shortness of breath. Patient denies nausea vomiting or diarrhea. On 03/19/2020 patient was seen and examined on the medical floor he is alert and oriented 3 in no apparent distress, he is complaining of diarrhea with stool incontinence, otherwise he denies any complaints there is no fever or chills no headache or dizziness, no chest pain no shortness of breath no cough no nausea or vomiting no abdominal pain no blood in the stools no burning with urination no frequency or urgency and no hematuria 03/20/2020 patient was seen and examined on the medical floor he is alert and oriented 3 in no apparent distress there is no fever or chills no headache or d izziness no chest pain no shortness of breath no cough no nausea or vomiting no abdominal pain no diarrhea no blood in the stools no burning with urination no frequency or urgency and no hematuria. Clinton catheter has been removed and patient is able to urinate. INR is still elevated patient will be getting vitamin K 2.5 mg by mouth 1 time today on 03/21/2020 patient is alert and oriented 3currently sitting up in chair. INR today 3.5. patient maintained on meropenem and vancomycin for IV an tibiotics. At that time Clinton catheter has been removed to patient voiding independently will follow-up outpatient with urology for possible cystoscopy. At this time patient denies chest pain or shortness of breath. Patient denies nausea vomiting or diarrhea. Patient denies any urinary burning or frequency On 03/22/2020 patient was seen and examined on the medical floor he is alert and oriented 3 in no distress, he had the midline placed today and antibiotic were resumed, white blood count is elevated at 13.5, there is no fever or chills no headache or dizziness no chest pain no shortness of breath no cough no nausea or vomiting no abdominal pain no diarrhea and no urinary symptoms. On 03/23/2020 patient was seen and examined on the medical floor he is alert and oriented 3 in no apparent distress there is no fever or chills no headache or dizziness no chest pain no shortness of breath no cough no nausea or vomiting no abdominal pain no diarrhea and no urinary symptoms white blood count remains elevated, patient was resumed on IV antibiotic via midline will continue to monitor during this weekend. On 03/24/2020 patient was seen and examined on the medical floor he is alert and oriented in no apparent distress he is sitting up in chair he denies any complaints at this time there is no fever or chills no headache or dizziness no chest pain no shortness of breath no palpitation no cough no nausea or vomiting no abdominal pain no diarrhea no blood in the stools no burning with urination no frequency or urgency and no hematuria. On 03/25/2020 patient was seen and examined on the medical floor he is alert and oriented in no distress he denies any symptoms at this time, he is sitting up in a chair eating his meal, there is no fever or chills no headache or dizziness no chest pain no shortness of breath no cough no nausea or vomiting no abdominal pain no diarrhea no blood in the stools no burning with urination no frequency or urgency and no hematuria. Infectious disease recommendation reviewed patient has a midline he [facility]. Objective - Vital Signs Vital signs: Vital Signs Temp 97.5 F L 03/25/20 04:00 Pulse 68 03/25/20 06:28 Resp 20 03/25/20 04:00 BP 118/57 03/25/20 06:28 Pulse Ox 97 03/25/20 04:00 Intake & Output 03/24/20 03/24/20 03/25/20 06:59 18:59 06:59 Intake Total 1280 740 Output Total 300 400 300 Balance -300 880 440 Weight 163.2 kg 165.2 kg Intake: Intake, IV Titration 500 Amount Vancomycin 2,250 mg In 500 Sodium Chloride 0.9% 500 ml 500 ml @ 167 mls/hr IVPB Q18H [facility] Rx#: [id number] Oral 1280 240 Output: Urine 300 400 300 Other: Voiding Method Urinal Urinal Urinal # Voids 1 1 2 # Bowel Movements 1 1 1 - Exam Head normocephalic and atraumatic Neck supple no JVD no goiter Lungs clear to auscultation bilaterally no wheezing or crackles Heart irregular rate. known atrial fibrillation Abdomen is soft nontender nondistended positive bowel sounds no hepatosplenomeg chaz Extremities no edema no cyanosis or clubbing Neuro alert and orientated to 2. Dementia Drainage noted to penile area around catheter. Erosion to groin area. - Labs CBC & Chem 7: 03/25/20 07:31 03/25/20 07:31 Labs: Abnormal Lab Results - Last 24 Hours (Table) 03/24/20 03/24/20 03/24/20 Range/Units 06:36 06:36 06:36 WBC 12.8 H (3.8-10.6) k/uL RBC 2.74 L (4.30-5.90) m/uL Hgb 9.1 L (13.0-17.5) gm/dL Hct 28.8 L (39.0-53.0) % MCV 105.2 H (80.0-100.0) fL RDW 16.0 H (11.5-15.5) % Neutrophils # 10.7 H (1.3-7.7) k/uL Lymphocytes # 0.9 L (1.0-4.8) k/uL PT 37.7 H (9.0-12.0) sec INR 3.8 H (<1.2) Carbon Dioxide 31 H (22-30) mmol/L BUN 55 H (9-20) mg/dL Glucose 103 H (74-99) mg/dL POC Glucose (mg/dL) (75-99) mg/dL Total Protein 5.8 L (6.3-8.2) g/dL Albumin 2.8 L (3.5-5.0) g/dL Ur Leukocyte Esterase (Negative) Hyaline Casts (0-2) /lpf Urine Mucus (None) /hpf 03/24/20 03/24/20 03/24/20 Range/Units 11:41 16:49 20:02 WBC (3.8-10.6) k/uL RBC (4.30-5.90) m/uL Hgb (13.0-17.5) gm/dL Hct (39.0-53.0) % MCV (80.0-100.0) fL RDW (11.5-15.5) % Neutrophils # (1.3-7.7) k/uL Lymphocytes # (1.0-4.8) k/uL PT (9.0-12.0) sec INR (<1.2) Carbon Dioxide (22-30) mmol/L BUN (9-20) mg/dL Glucose (74-99) mg/dL POC Glucose (mg/dL) 133 H 161 H 195 H (75-99) mg/dL Total Protein (6.3-8.2) g/dL Albumin (3.5-5.0) g/dL Ur Leukocyte Esterase (Negative) Hyaline Casts (0-2) /lpf Urine Mucus (None) /hpf 03/25/20 03/25/20 Range/Units 04:00 06:24 WBC (3.8-10.6) k/uL RBC (4.30-5.90) m/uL Hgb (13.0-17.5) gm/dL Hct (39.0-53.0) % MCV (80.0-100.0) fL RDW (11.5-15.5) % Neutrophils # (1.3-7.7) k/uL Lymphocytes # (1.0-4.8) k/uL PT (9.0-12.0) sec INR (<1.2) Carbon Dioxide (22-30) mmol/L BUN (9-20) mg/dL Glucose (74-99) mg/dL POC Glucose (mg/dL) 133 H (75-99) mg/dL Total Protein (6.3-8.2) g/dL Albumin (3.5-5.0) g/dL Ur Leukocyte Esterase Trace H (Negative) Hyaline Casts 7 H (0-2) /lpf Urine Mucus Rare H (None) /hpf Microbiology - Last 24 Hours (Table) 03/20/20 18:45 Blood Culture - Preliminary Blood No Growth after 96 hours 03/20/20 18:30 Blood Culture - Preliminary Blood No Growth after 96 hours Assessment and Plan Assessment: 1. Infection around catheter site with penile erosion. wound culture showing MRSA Enterobacter cloacae. Patient currently on vancomycin and meropenem critical care services are following 2. MRSA bacteremia repeat blood cultures ordered, maintained on IV vancomycin 3. Gram-negative urinary tract infection related to ESBL Proteus mirabilis. Patient remains on meropenem and vancomycin 4. Acute kidney injury with elevated potassium. Creatinine elevated at 3.06 upon admission. Continue normal saline at 50. Potassium lowing cocktail ordered per nephrology services. kidney numbers are trending down 5. Supratherapeutic INR. Hold Coumadin and recheck. patient did receive vitamin K. Current INR 3.5 6. Possible pneumonia. Patient started on Levaquin and Rocephin. Pulmonary service is consulted 7. History of insulin-dependent diabetes mellitus 8. History of essential hypertension 9. History of hyperlipidemia. Maintained on statin 10. History of stroke with suppressive aphasia 11. History of morbid obesity 12. History of urinary retention and difficulty with Clinton insertion. per ur ology servicesFoley catheter has been removed patient advised follow-up in one month with urology services for cystoscopy 13. Dementia. Maintained on Aricept and Namenda 14. Diarrhea will check stools for C. diff. 15. Nurse reporting that patient is making statements about being depressed, hi s is also concerned in that regard, at this time will restart patient on Wellbutrin SR 150 mg by mouth once daily DVT prophylaxis SCDs due to subtherapeutic INR. GI prophylaxis Protonix Urology, nephrology and pulmonary services are following Patient maintained on vancomycin and meropenem repeat blood cultures ordered
[2020-03-25 12:14] LABS: Glucose,Whole Blood 148 mg/dL (75-99)
--- NOTE | 2020-03-25 13:17 | PN ---
PROGRESS NOTE Patient is seen for followup for acute kidney injury and currently renal function has been staying stable. Serum creatinine is slightly increased to 1.27. Patient's Lasix has been switched to IV as he has significant edema bilaterally upper and lower extremities. PHYSICAL EXAMINATION: On examination today, blood pressure was 92/35, heart rate 62 per minute, he is afebrile. Examination of the heart S1, S2. Examination of lungs, decreased breath sounds at bases. Abdomen is soft, morbidly obese. Examination of lower extremities shows edema 3+ bilaterally upper and lower extremities. GUARD CAPTAIN exam grossly intact. LAB: Show hemoglobin 8.6, sodium 138, potassium 5.0, chloride 104, BUN 56, creatinine 1.27. ASSESSMENT: 1. Acute kidney injury, acute tubular necrosis, currently improved, creatinine staying at about 1.1-1.2. The patient is being diuresed. I will continue with the Lasix since he has significant edema. 2. Adrenal insufficiency diagnosed this admission. Maintained on steroids. 3. Volume overload. Continue with IV Lasix for now. 4. Urinary tract infection with scrotal edema, penile erosion, maintained on antibiotics. Urine culture positive for Proteus. 5. MRSA bacteremia with wound culture positive for MRSA and Enterobacter. Repeat blood cultures negative on 03/20/2020. PLAN: Continue with IV Lasix, repeat labs in a.m. and monitor electrolytes. MMODL / IJN: [id number] /
[2020-03-25 17:02] LABS: Glucose,Whole Blood 145 mg/dL (75-99)
[2020-03-25] MEDS: VANCOMYCIN 2,250 MG in SODIUM CHLORIDE 0.9% 500 ML 500 ML IVPB SCH (17:13)
[2020-03-25] MEDS ORDERED: WARFARIN 0.5 MG TAB PO ONE (18:00)
[2020-03-25] MEDS: DONEPEZIL 10 MG TAB PO SCH (20:06)
[2020-03-25] MEDS: TAMSULOSIN 0.4 MG CAP.ER.24H PO SCH (20:06)
[2020-03-25] MEDS: ATORVASTATIN 10 MG TAB PO SCH (20:06)
[2020-03-25 20:26] LABS: Glucose,Whole Blood 141 mg/dL (75-99)
--- NOTE | 2020-03-26 05:29 | PN ---
PROGRESS NOTE DATE OF SERVICE: 03/25/2020 REASON FOR FOLLOWUP: 1. ESBL Proteus mirabilis urinary tract infection. 2. MRSA bacteremia source like secondary to soft tissue. INTERVAL HISTORY: The patient is currently afebrile. The patient is breathing comfortably. The patient denies having any chest pain or cough. No nausea or vomiting. No abdominal pain or diarrhea. PHYSICAL EXAMINATION: Blood pressure 92/35 with a pulse of 62, temperature 97.5. He is 95% on 2 L nasal cannula. General description is an elderly male up in the chair in no distress. RESPIRATORY SYSTEM: Unlabored breathing. Decreased breath sounds at the bases. No wheeze. HEART: S1, S2. Regular rate and rhythm. ABDOMEN: Soft, no tenderness. LABS: Hemoglobin 8.6, white count 12.5, creatinine 1.27. CRP 38.9. Repeat urine is clear. DIAGNOSTIC IMPRESSION AND PLAN: 1. Patient with Proteus mirabilis ESBL urinary tract infection adequately treated. Clinton has been discontinued. Repeat urine is negative. Meropenem to be discontinued on discharge. 2. Patient with MRSA bacteremia possible source groin area, did not show evidence of any abscess . The patient is covered with vancomycin, continue for another 7 to 10 days to finish a 2-week course of therapy from his negative blood culture. Continue supportive care. MMODL / IJN: [id number] /
[2020-03-26] MEDS: FERROUS SULFATE 325 MG TAB PO SCH (06:20)
[2020-03-26] MEDS: PANTOPRAZOLE 40 MG TABLET PO SCH (06:20)
[2020-03-26] MEDS: METOPROLOL SUCCINATE (ER) 50 MG TAB.ER.24H PO SCH (06:20)
[2020-03-26] MEDS: CHOLECALCIFEROL 1,000 UNIT TAB PO SCH (06:21)
[2020-03-26] MEDS: MAGNESIUM OXIDE 400 MG TAB PO SCH (06:21)
[2020-03-26 06:23] LABS: Glucose,Whole Blood 126 mg/dL (75-99)
[2020-03-26] MEDS: FLUCONAZOLE 100 MG TAB PO SCH (08:53)
[2020-03-26] MEDS: MEMANTINE 5 MG TAB PO SCH ×2 (08:53→21:11)
[2020-03-26] MEDS: FUROSEMIDE 10 MG/ML 4 ML VIAL IV SCH ×2 (08:53→21:11)
[2020-03-26] MEDS: HYDROCORTISONE 10 MG TAB PO SCH ×2 (08:55→21:11)
[2020-03-26] MEDS: buPROPion SR 150 MG TABLET.ER PO SCH (08:55)
[2020-03-26] MEDS: CLOTRIMAZOLE/BETAMETH 1-0.05% CREAM 45 GM TUBE TOPICAL SCH ×2 (08:55→21:11)
[2020-03-26 09:37] LABS: Albumin 2.8 g/dL (3.5-5.0); Calcium 8.8 mg/dL (8.4-10.2); Potassium 4.8 mmol/L (3.5-5.1); Total Bilirubin 0.8 mg/dL (0.2-1.3); Total Protein 5.6 g/dL (6.3-8.2)
[2020-03-26 09:47] LABS: INR 4.6 (<1.2); Prothrombin Time 46.2 sec (9.0-12.0)
[2020-03-26 09:56] LABS: Anisocytosis Slight; Basophils # (A) 0.1 k/uL (0-0.2); Basophils % (A) 1 %; Eosinophils # (A) 0.3 k/uL (0-0.7); Eosinophils % (A) 2 %; HCT 27.7 % (39.0-53.0); HGB 9.1 gm/dL (13.0-17.5); Hypochromasia Slight; Lymphocytes # (A) 0.9 k/uL (1.0-4.8); Lymphocytes % (A) 8 %; MCH 34.1 pg (25.0-35.0); MCV 103.3 fL (80.0-100.0); Macrocytosis Moderate; Mean Platelet Volume 7.8; Monocytes # (A) 0.7 k/uL (0-1.0); Monocytes % (A) 6 %; Neutrophils # (A) 10.3 k/uL (1.3-7.7); Neutrophils % (A) 82 %; Platelet Count 219 k/uL (150-450); Poikilocytosis Slight; RBC 2.68 m/uL (4.30-5.90); RDW 16.2 % (11.5-15.5); WBC 12.5 k/uL (3.8-10.6)
[2020-03-26] MEDS: SYMBICORT 160-4.5 MCG INHALER INHALATION SCH ×2 (11:04→20:30)
[2020-03-26 12:17] LABS: Glucose,Whole Blood 160 mg/dL (75-99)
[2020-03-26] MEDS: MEROPENEM 1 GM in SODIUM CHLORIDE 0.9% 100 ML IVPB SCH ×2 (12:57→17:58)
--- NOTE | 2020-03-26 14:24 | PN ---
PROGRESS NOTE Patient is seen for followup for acute kidney injury and volume overload currently maintained on IV Lasix. Renal function is stable. Serum creatinine is slowly edging up. However, patient was significantly volume overloaded and this seems to be improving. PHYSICAL EXAMINATION: On examination today, blood pressure is 118/65, heart rate 62 per minute, he is afebrile examination of the heart S1, S2. Examination of the lungs, bilateral breath sounds are heard. Abdomen is soft, nontender. Examination of lower extremities shows bilateral leg edema about 3+, bilateral extremities are wrapped upper and lower. LABS: Show sodium 138, potassium 4.8, chloride 104, BUN 65, creatinine 1.3, hemoglobin 9.1 g/dL. ASSESSMENT: 1. Acute kidney injury ATN currently improved serum creatinine slowly increasing associated with diuresis however this see the 1.1 was falsely low secondary to severe volume overload. Therefore, I will continue with the IV Lasix until patient is discharged. 2. MRSA bacteremia source related to the wound from the penile erosion and groin. 3. MRSA bacteremia. 4. Urinary tract infection with Proteus mirabilis, maintained on antibiotics, being followed by ID. 5. Chronic kidney disease, NKF stage III. Baseline appears to be around 1.2-1.3. PLAN: Continue with IV Lasix for now. Continue to encourage increased oral intake. MMODL / IJN: [id number] /
[2020-03-26 16:55] LABS: Glucose,Whole Blood 151 mg/dL (75-99)
--- NOTE | 2020-03-26 17:20 | P.PN ---
Subjective Progress Note Date: 03/26/20 Principal diagnosis: Sepsis related to penile erosion and secondary cellulitis 72-year-old male patient who was sent over to the hospital from an extended care facility due to concern of a infection of his penis/scrotum. [facility] a [facility] with a rash in his groin area eroding into his foreskin. The patient was in the hospital last month for a fall at home and during the hospital stay had developed urinary retention. He was seen by urology. He is known to have bladder cancer. The patient has a chronically indwelling Clinton catheter which was placed a week ago. He was started on Flomax to be followed up by urology on outpatient basis. He is not a good historian due to his underlying dementia. At a time of arrival, the patient was afebrile and had a blood pressure with a systolic being in the mid 90s. His creatinine was at 3.07 at a time of admission. He was given IV fluids with normal state rate of 50 mL an hour. He was started on IV antibiotics. Cultures still pending for now. Meanwhile, he was also found to be toxic and supratherapeutic on his INR with a level being more than 10 and the patient was given vitamin K. Hemoglobin was stable at 9.9. In regards to his potassium level of 5.7, he was given a dose of Kayexalate. The patient is known to have multiple medical problems and comorbidities. He had COPD, dementia, hypertension, obstructive sleep apnea, chronic atrial fibrillation, and he has a pacemaker in place. The pacemaker was placed several years back for a symptomatic bradycardia and atrial fibrillation. The patient is known to have a prosthetic aortic valve and he has undergone previous aortic valve replacement. On 03/19/2020 patient seen in follow-up on selective care unit. He is awake and alert, in no acute distress, he is a poor historian, but appears to be breathing comfortably, denies any distress. Room air pulse ox 95%, his been afebrile, hemodynamically patient has been stable. He is on the daptomycin, cefepime and clindamycin, his groin wound culture showed gram-negative bacilli, presumptive M RSA, blood culture showed MSSA, and urine culture positive for gram-negative bacilli. He denies any dyspnea, no cough or congestion no complaints of chest pain. He is breathing comfortably. He's had no fever or chills, he was seen by urology services, his Clinton remains about, it's unclear how much he is voiding, it appears that the Clinton was taken out this morning. Patient is being followed by wound care surgery for nonhealing ulcerations on the left calcaneus and abdominal folds. Today's labs have been reviewed, showing white blood cell count of 8.9, hemoglobin of 10.3, his INR today is 6.1, sodium is 136, potassium is 5.7, there are 3 large lites were within normal limits, renal profile is slightly improved, with BUN of 91, creatinine of 2.57 On 03/20/2020 patient seen in follow-up on selective care unit, he is currently up in the recliner, in no acute distress, denies any shortness of breath, room air pulse ox is 96%, afebrile, hemodynamically stable, his labs today have been reviewed, white blood cell count is 7.4, hemoglobin is 9.7, INR is 6.3, with no evidence of bleeding, potassium is 5.5, chloride is 109, renal profile is improving, BUN is down to 92, and creatinine is 1.94. Current antibiotic coverage is in the form of cefepime and vancomycin, his wound cultures from the groin came back positive for Enterobacter and methicillin-resistant staph aureus, blood culture was positive for MRSA, and urine culture came back positive for ESBL Proteus mirabilis, and antibiotic coverage will be switched over to meropenem with vancomycin. Patient has no specific complaints, no nausea vomiting or diarrhea, he is voiding. On 03/26/2020 patient seen in follow-up on selective care unit. He is resting comfortably been covered he is on 2 L of oxygen and the pulse ox of 94-95%, hemodynamically has been stable, has had no fever or chills. Denies any worsening dyspnea, breathing seems to be comfortable, his COVID 19 PCR came back negative, his penile culture came back positive for multiple anaerobic gram- negative bacilli, his groin culture came back positive for MRSA, and Enterobacter, and blood culture was positive for MRSA and urine culture was positive for Proteus mirabilis, follow blood cultures have been negative 2. I'll signs have been stable, ID service is following, current antibiotic coverage includes Flagyl, vancomycin and meropenem Objective - Vital Signs Vital signs: Vital Signs Temp 97.8 F 03/25/20 20:00 Pulse 98 03/26/20 12:00 Resp 16 03/26/20 15:46 BP 155/81 03/26/20 12:00 Pulse Ox 95 03/26/20 08:00 Intake & Output 03/25/20 03/26/20 03/26/20 18:59 06:59 18:59 Intake Total 941 480 Output Total 375 Balance 941 -375 480 Weight 104.5 kg Intake: Oral 941 480 Output: Urine 375 Other: Voiding Method Urinal Urinal Urinal # Voids 2 # Bowel Movements 1 2 1 - Exam GENERAL EXAM: Alert, very pleasant obese 74-year-old white male, 2 L of oxygen and the pulse ox 94%, with pulse ox of 95% comfortable in no apparent distress. HEAD: Normocephalic/atraumatic. EYES: Normal reaction of pupils, equal size. Conjunctiva pink, sclera white. NOSE: Clear with pink turbinates. THROAT: No erythema or exudates. NECK: No masses, no JVD, no thyroid enlargement, no adenopathy. CHEST: No chest wall deformity. Symmetrical expansion. LUNGS: Equal air entry with no crackles, wheeze, rhonchi or dullness. CVS: Regular rate and rhythm, normal S1 and S2, no gallops, no murmurs, no rubs ABDOMEN: Soft, nontender. No hepatosplenomegaly, normal bowel sounds, no guarding or rigidity. EXTREMITIES: No clubbing, no edema, no cyanosis, 2+ pulses and upper and lower extremities. MUSCULOSKELETAL: Muscle strength and tone normal. SPINE: No scoliosis or deformity SKIN: Bilateral abdominal ulcerations, and maceration with excoriation, left medial calcaneal ulceration CENTRAL NERVOUS SYSTEM: Alert and oriented -3. No focal deficits, tone is normal in all 4 extremities. PSYCHIATRIC: Alert and oriented -3. Appropriate affect. Intact judgment and insight. - Labs CBC & Chem 7: 03/26/20 08:20 03/26/20 08:20 Labs: Abnormal Lab Results - Last 24 Hours (Table) 03/25/20 03/26/20 03/26/20 Range/Units 20:21 06:21 08:20 WBC (3.8-10.6) k/uL RBC (4.30-5.90) m/uL Hgb (13.0-17.5) gm/dL Hct (39.0-53.0) % MCV (80.0-100.0) fL RDW (11.5-15.5) % Neutrophils # (1.3-7.7) k/uL Lymphocytes # (1.0-4.8) k/uL PT 46.2 H (9.0-12.0) sec INR 4.6 H (<1.2) Carbon Dioxide (22-30) mmol/L BUN (9-20) mg/dL Creatinine (0.66-1.25) mg/dL Glucose (74-99) mg/dL POC Glucose (mg/dL) 141 H 126 H (75-99) mg/dL Total Protein (6.3-8.2) g/dL Albumin (3.5-5.0) g/dL 03/26/20 03/26/20 03/26/20 Range/Units 08:20 08:20 11:51 WBC 12.5 H (3.8-10.6) k/uL RBC 2.68 L (4.30-5.90) m/uL Hgb 9.1 L (13.0-17.5) gm/dL Hct 27.7 L (39.0-53.0) % MCV 103.3 H (80.0-100.0) fL RDW 16.2 H (11.5-15.5) % Neutrophils # 10.3 H (1.3-7.7) k/uL Lymphocytes # 0.9 L (1.0-4.8) k/uL PT (9.0-12.0) sec INR (<1.2) Carbon Dioxide 31 H (22-30) mmol/L BUN 65 H (9-20) mg/dL Creatinine 1.30 H (0.66-1.25) mg/dL Glucose 104 H (74-99) mg/dL POC Glucose (mg/dL) 160 H (75-99) mg/dL Total Protein 5.6 L (6.3-8.2) g/dL Albumin 2.8 L (3.5-5.0) g/dL 03/26/20 Range/Units 16:54 WBC (3.8-10.6) k/uL RBC (4.30-5.90) m/uL Hgb (13.0-17.5) gm/dL Hct (39.0-53.0) % MCV (80.0-100.0) fL RDW (11.5-15.5) % Neutrophils # (1.3-7.7) k/uL Lymphocytes # (1.0-4.8) k/uL PT (9.0-12.0) sec INR (<1.2) Carbon Dioxide (22-30) mmol/L BUN (9-20) mg/dL Creatinine (0.66-1.25) mg/dL Glucose (74-99) mg/dL POC Glucose (mg/dL) 151 H (75-99) mg/dL Total Protein (6.3-8.2) g/dL Albumin (3.5-5.0) g/dL Microbiology - Last 24 Hours (Table) 03/20/20 18:45 Blood Culture - Preliminary Blood No Growth after 120 hours 03/20/20 18:30 Blood Culture - Preliminary Blood No Growth after 120 hours Assessment and Plan Plan: Assessment: 1 Penile erosion secondary to catheter with suspected infection with secondary cellulitis, questionable early necrotizing fasciitis of the scrotal and the groin area. Wound cultures showed MRSA, Enterobacter cloacae 2 MRSA bacteremia 3 gram-negative urinary tract infection, related to ESBL Proteus mirabilis 4 acute kidney injury with secondary hyperkalemia, improving 5 nonhealing wounds under the abdominal folds, and left calcaneal area 6 obstructive uropathy with a indwelling Clinton catheter in place 7 advanced dementia with impairment in cognitive functions 8 chronic atrial fibrillation with a supratherapeutic PT/INR while on Coumadin 9 history of aortic valve replacement 10 supratherapeutic PT/INR without evidence of an acute bleed 11 hypertension 12 obstructive sleep apnea. 13 history of pacemaker insertion for symptomatically bradycardia 14 COPD currently on room air oxygen with a pulse ox of 94% 15 chronic anemia 16 hyperlipidemia 17 history of previous CVA with expressive aphasia 18 BPH Plan: ID service is following and managing the antibiotics, but is considered stable, no worsening dyspnea, patient has been afebrile, no worsening dyspnea, continue monitoring electrolytes and renal profile. Continue bronchodilators. Pulmonary service will sign off and follow on as-needed basis. I performed a history & physical examination of the patient and discussed their management with my nurse practitioner, Gabbi Graves. I reviewed the nurse practitioner's note and agree with the documented findings and plan of care. Lung sounds are positive for clear breath sound. The findings and the impression was discussed with the patient. I attest to the documentation by the nurse practitioner. Time with Patient: Less than 30
[2020-03-26] MEDS ORDERED: WARFARIN 0.5 MG TAB PO ONE (18:00)
--- NOTE | 2020-03-26 18:00 | P.PN ---
Subjective Progress Note Date: 03/26/20 Te Brady is a 74-year-old male patient who presented to the ER from rehab with complaints of increased O fungal rash in the groin eroding foreskin secondary to catheter. Patient also had acute kidney injury and elevated INR. Patient's past medical history of atrial fibrillation which she is maintained on Coumadin, heart failure, COPD, dementia, hypertension, myocardial infarction, osteoarthritis with sleep apnea in which he uses home CPAP machine, pacemaker, anxiety and heart valve replacement. Patient's creatinine upon admission 3.07 and bun 77 potassium also elevated at 56. INR greater than 10. UA positive for the same Estrace. Chest x-ray completed showing T over the left lower lung r egion correlate for atelectasis or pneumonia. At this time patient has been started on Rocephin and Levaquin for IV antibiotics. Urology services have been consulted. Nephrology service is consulted for acute kidney injury. Potassium lowering cocktail given per nephrology. Dr. zavala and has been consulted for pulmonary due to possible pneumonia. Wound and blood cultures ordered. at this time patient denies chest pain or shortness of breath. Patient denies nausea vomiting or diarrhea. On 03/19/2020 patient was seen and examined on the medical floor he is alert and oriented 3 in no apparent distress, he is complaining of diarrhea with stool incontinence, otherwise he denies any complaints there is no fever or chills no headache or dizziness, no chest pain no shortness of breath no cough no nausea or vomiting no abdominal pain no blood in the stools no burning with urination no frequency or urgency and no hematuria 03/20/2020 patient was seen and examined on the medical floor he is alert and oriented 3 in no apparent distress there is no fever or chills no headache or d izziness no chest pain no shortness of breath no cough no nausea or vomiting no abdominal pain no diarrhea no blood in the stools no burning with urination no frequency or urgency and no hematuria. Clinton catheter has been removed and patient is able to urinate. INR is still elevated patient will be getting vitamin K 2.5 mg by mouth 1 time today on 03/21/2020 patient is alert and oriented 3currently sitting up in chair. INR today 3.5. patient maintained on meropenem and vancomycin for IV an tibiotics. At that time Clinton catheter has been removed to patient voiding independently will follow-up outpatient with urology for possible cystoscopy. At this time patient denies chest pain or shortness of breath. Patient denies nausea vomiting or diarrhea. Patient denies any urinary burning or frequency On 03/22/2020 patient was seen and examined on the medical floor he is alert and oriented 3 in no distress, he had the midline placed today and antibiotic were resumed, white blood count is elevated at 13.5, there is no fever or chills no headache or dizziness no chest pain no shortness of breath no cough no nausea or vomiting no abdominal pain no diarrhea and no urinary symptoms. On 03/23/2020 patient was seen and examined on the medical floor he is alert and oriented 3 in no apparent distress there is no fever or chills no headache or dizziness no chest pain no shortness of breath no cough no nausea or vomiting no abdominal pain no diarrhea and no urinary symptoms white blood count remains elevated, patient was resumed on IV antibiotic via midline will continue to monitor during this weekend. On 03/24/2020 patient was seen and examined on the medical floor he is alert and oriented in no apparent distress he is sitting up in chair he denies any complaints at this time there is no fever or chills no headache or dizziness no chest pain no shortness of breath no palpitation no cough no nausea or vomiting no abdominal pain no diarrhea no blood in the stools no burning with urination no frequency or urgency and no hematuria. On 03/25/2020 patient was seen and examined on the medical floor he is alert and oriented in no distress he denies any symptoms at this time, he is sitting up in a chair eating his meal, there is no fever or chills no headache or dizziness no chest pain no shortness of breath no cough no nausea or vomiting no abdominal pain no diarrhea no blood in the stools no burning with urination no frequency or urgency and no hematuria. Infectious disease recommendation reviewed patient has a midline he [facility]. on 03/26/2020 patient was seen and examined on the medical floor he is alert and oriented 3 in no distress he is complaining of generalized weakness otherwise no specific complaints there is no fever or chills no headache or dizziness no chest pain no shortness of breath no cough no nausea or vomiting no abdominal pain no diarrhea and no urinary symptoms, he remains on IV antibiotic white blood count is still elevated . Patient has a midline in the right arm, he will need to continue IV antibiotic [facility] the [facility], he is urinating well without Clinton catheter Objective - Vital Signs Vital signs: Vital Signs Temp 97.8 F 03/25/20 20:00 Pulse 98 03/26/20 12:00 Resp 16 03/26/20 15:46 BP 155/81 03/26/20 12:00 Pulse Ox 95 03/26/20 08:00 Intake & Output 03/25/20 03/26/20 03/26/20 18:59 06:59 18:59 Intake Total 941 480 Output Total 375 Balance 941 -375 480 Weight 104.5 kg Intake: Oral 941 480 Output: Urine 375 Other: Voiding Method Urinal Urinal Urinal # Voids 2 # Bowel Movements 1 2 1 - Exam Head normocephalic and atraumatic Neck supple no JVD no goiter Lungs clear to auscultation bilaterally no wheezing or crackles Heart irregular rate. known atrial fibrillation Abdomen is soft nontender nondistended positive bowel sounds no hepatosplenomegaly Extremities no edema no cyanosis or clubbing Neuro alert and orientated to 2. Dementia Drainage noted to penile area around catheter. Erosion to groin area. - Labs CBC & Chem 7: 03/26/20 08:20 03/26/20 08:20 Labs: Abnormal Lab Results - Last 24 Hours (Table) 03/25/20 03/26/20 03/26/20 Range/Units 20:21 06:21 08:20 WBC (3.8-10.6) k/uL RBC (4.30-5.90) m/uL Hgb (13.0-17.5) gm/dL Hct (39.0-53.0) % MCV (80.0-100.0) fL RDW (11.5-15.5) % Neutrophils # (1.3-7.7) k/uL Lymphocytes # (1.0-4.8) k/uL PT 46.2 H (9.0-12.0) sec INR 4.6 H (<1.2) Carbon Dioxide (22-30) mmol/L BUN (9-20) mg/dL Creatinine (0.66-1.25) mg/dL Glucose (74-99) mg/dL POC Glucose (mg/dL) 141 H 126 H (75-99) mg/dL Total Protein (6.3-8.2) g/dL Albumin (3.5-5.0) g/dL 03/26/20 03/26/20 03/26/20 Range/Units 08:20 08:20 11:51 WBC 12.5 H (3.8-10.6) k/uL RBC 2.68 L (4.30-5.90) m/uL Hgb 9.1 L (13.0-17.5) gm/dL Hct 27.7 L (39.0-53.0) % MCV 103.3 H (80.0-100.0) fL RDW 16.2 H (11.5-15.5) % Neutrophils # 10.3 H (1.3-7.7) k/uL Lymphocytes # 0.9 L (1.0-4.8) k/uL PT (9.0-12.0) sec INR (<1.2) Carbon Dioxide 31 H (22-30) mmol/L BUN 65 H (9-20) mg/dL Creatinine 1.30 H (0.66-1.25) mg/dL Glucose 104 H (74-99) mg/dL POC Glucose (mg/dL) 160 H (75-99) mg/dL Total Protein 5.6 L (6.3-8.2) g/dL Albumin 2.8 L (3.5-5.0) g/dL 03/26/20 Range/Units 16:54 WBC (3.8-10.6) k/uL RBC (4.30-5.90) m/uL Hgb (13.0-17.5) gm/dL Hct (39.0-53.0) % MCV (80.0-100.0) fL RDW (11.5-15.5) % Neutrophils # (1.3-7.7) k/uL Lymphocytes # (1.0-4.8) k/uL PT (9.0-12.0) sec INR (<1.2) Carbon Dioxide (22-30) mmol/L BUN (9-20) mg/dL Creatinine (0.66-1.25) mg/dL Glucose (74-99) mg/dL POC Glucose (mg/dL) 151 H (75-99) mg/dL Total Protein (6.3-8.2) g/dL Albumin (3.5-5.0) g/dL Microbiology - Last 24 Hours (Table) 03/20/20 18:45 Blood Culture - Preliminary Blood No Growth after 120 hours 03/20/20 18:30 Blood Culture - Preliminary Blood No Growth after 120 hours Assessment and Plan Assessment: 1. Infection around catheter site with penile erosion. wound culture showing MRSA Enterobacter cloacae. Patient currently on vancomycin and meropenem critical care services are following 2. MRSA bacteremia repeat blood cultures ordered, maintained on IV vancomycin 3. Gram-negative urinary tract infection related to ESBL Proteus mirabilis. Patient remains on meropenem and vancomycin 4. Acute kidney injury with elevated potassium. Creatinine elevated at 3.06 upon admission. Continue normal saline at 50. Potassium lowing cocktail ordered per nephrology services. kidney numbers are trending down 5. Supratherapeutic INR. Hold Coumadin and recheck. patient did receive vitamin K. Current INR 3.5 6. Possible pneumonia. Patient started on Levaquin and Rocephin. Pulmonary service is consulted 7. History of insulin-dependent diabetes mellitus 8. History of essential hypertension 9. History of hyperlipidemia. Maintained on statin 10. History of stroke with suppressive aphasia 11. History of morbid obesity 12. History of urinary retention and difficulty with Clinton insertion. per urology servicesFoley catheter has been removed patient advised follow-up in one month with urology services for cystoscopy 13. Dementia. Maintained on Aricept and Namenda 14. Diarrhea will check stools for C. diff. 15. Nurse reporting that patient is making statements about being depressed, his is also concerned in that regard, at this time will restart patient on Wellbutrin SR 150 mg by mouth once daily DVT prophylaxis SCDs due to subtherapeutic INR. GI prophylaxis Protonix Urology, nephrology and pulmonary services are following Patient maintained on vancomycin and meropenem repeat blood cultures ordered
[2020-03-26] MEDS: VANCOMYCIN 2,250 MG in SODIUM CHLORIDE 0.9% 500 ML 500 ML IVPB SCH (20:47)
[2020-03-26 20:52] LABS: Glucose,Whole Blood 160 mg/dL (75-99)
[2020-03-26] MEDS: TAMSULOSIN 0.4 MG CAP.ER.24H PO SCH (21:11)
[2020-03-26] MEDS: ATORVASTATIN 10 MG TAB PO SCH (21:11)
[2020-03-26] MEDS: DONEPEZIL 10 MG TAB PO SCH (21:11)
--- NOTE | 2020-03-26 22:12 | PN ---
PROGRESS NOTE DATE OF SERVICE: 03/26/2020 REASON FOR FOLLOWUP: 1. ESBL Proteus mirabilis UTI, adequately treated. 2. Patient with MRSA bacteremia secondary to source. Repeat blood culture has been negative. INTERVAL HISTORY: The patient is currently afebrile. The patient is breathing comfortably. The patient denies having any chest pain or shortness of breath or cough. No nausea, no vomiting. No abdominal pain or any diarrhea. PHYSICAL EXAMINATION: Blood pressure 119/65 with a pulse of 52, temperature 98. He is 95% on 2 L nasal cannula. General description is an elderly male up in the chair in no distress. RESPIRATORY SYSTEM: Unlabored breathing. Clear to auscultation anteriorly. HEART: S1, S2. Regular rate and rhythm. ABDOMEN: Soft. No tenderness. LEGS: Swelling. Dressed. No drainage on the dressing. LABS: Hemoglobin 9.1, white count 12.5, creatinine 1.30. DIAGNOSTIC IMPRESSION AND PLAN: 1. Patient with Proteus mirabilis extended-spectrum beta-lactamase urinary tract infection, adequately treated. Repeat urine has been negative. 2. Patient with methicillin-resistant Staphylococcus aeruginosa bacteremia. Follow-up blood cultures were negative. Patient to continue vancomycin for another 10 days to finish a 2-week course of therapy from the negative blood culture and close outpatient followup. Plan of care was discussed with the admitting physician working on discharge. MMODL / RAJNIN: [id number] /
[2020-03-27 06:23] LABS: Glucose,Whole Blood 135 mg/dL (75-99)
[2020-03-27] MEDS: FERROUS SULFATE 325 MG TAB PO SCH (06:39)
[2020-03-27] MEDS: CHOLECALCIFEROL 1,000 UNIT TAB PO SCH (06:39)
[2020-03-27] MEDS: METOPROLOL SUCCINATE (ER) 50 MG TAB.ER.24H PO SCH (06:39)
[2020-03-27] MEDS: PANTOPRAZOLE 40 MG TABLET PO SCH (06:39)
[2020-03-27] MEDS: MAGNESIUM OXIDE 400 MG TAB PO SCH (06:39)
[2020-03-27] MEDS: SYMBICORT 160-4.5 MCG INHALER INHALATION SCH ×2 (08:25→20:13)
[2020-03-27] MEDS: FUROSEMIDE 10 MG/ML 4 ML VIAL IV SCH ×2 (09:01→21:00)
[2020-03-27] MEDS: FLUCONAZOLE 100 MG TAB PO SCH (09:01)
[2020-03-27] MEDS: CLOTRIMAZOLE/BETAMETH 1-0.05% CREAM 45 GM TUBE TOPICAL SCH ×2 (09:02→21:00)
[2020-03-27] MEDS: MEMANTINE 5 MG TAB PO SCH ×2 (09:02→20:59)
[2020-03-27] MEDS: HYDROCORTISONE 10 MG TAB PO SCH ×2 (09:02→20:59)
[2020-03-27] MEDS: buPROPion SR 150 MG TABLET.ER PO SCH (09:02)
[2020-03-27 09:29] LABS: INR 3.9 (<1.2); Prothrombin Time 38.5 sec (9.0-12.0)
[2020-03-27] MEDS: MEROPENEM 1 GM in SODIUM CHLORIDE 0.9% 100 ML IVPB SCH ×3 (09:39→23:55)
[2020-03-27 11:50] LABS: Glucose,Whole Blood 169 mg/dL (75-99)
--- NOTE | 2020-03-27 14:40 | PN ---
PROGRESS NOTE Patient is seen for followup for acute kidney injury, hypervolemia. He is maintained on IV Lasix. No labs available from today yet. On examination, patient is comfortable. He denies any significant complaints. He is eating better. His swelling seems to have improved. PHYSICAL EXAMINATION: Blood pressure is 112/67, heart rate 60 per minute, he is afebrile. Examination of the heart S1, S2. Examination of the lungs, decreased breath sounds at bases. Abdomen is soft. Morbidly obese. Examination in the lower extremities shows edema 2+ bilaterally, currently both extremities are wrapped. Edema in the upper extremities has improved as well. LABS: From yesterday 03/26 show sodium 138, potassium 4.8, BUN 65, serum creatinine 1.3, hemoglobin 9.1. ASSESSMENT: 1. Acute kidney injury on initial admission, currently improved. 2. Hypervolemia, maintained on IV Lasix. Patient can be switched to p.o. Lasix at the time of discharge. His volume status is improving. Serum creatinine staying at about 1.2-1.3 mg/dL. 3. MRSA bacteremia, maintained on IV vancomycin. 4. Penile erosion and wound with urinary tract infection as well. Wound culture growing MRSA and urine culture grew Proteus mirabilis. 5. Chronic kidney disease stage III. Baseline creatinine about 1.2 to 1.3 mg/dL. PLAN: Switch to p.o. Lasix at the time of discharge. Continue with IV Lasix until patient is discharged. Check labs in a.m. MMALEX / RAJNIN: [id number] /
[2020-03-27 16:56] LABS: Glucose,Whole Blood 142 mg/dL (75-99)
[2020-03-27] MEDS ORDERED: VANCOMYCIN TROUGH DUE 1 EACH MISC MISCELLANE ONE (17:00)
[2020-03-27] MEDS: VANCOMYCIN 2,250 MG in SODIUM CHLORIDE 0.9% 500 ML 500 ML IVPB SCH (17:51)
[2020-03-27 17:53] LABS: Anisocytosis Slight; Basophils # (A) 0.1 k/uL (0-0.2); Basophils % (A) 1 %; Eosinophils # (A) 0.3 k/uL (0-0.7); Eosinophils % (A) 2 %; HCT 27.9 % (39.0-53.0); Hypochromasia Moderate; Lymphocytes # (A) 0.8 k/uL (1.0-4.8); Lymphocytes % (A) 7 %; MCH 33.6 pg (25.0-35.0); MCHC 32.2 g/dL (31.0-37.0); MCV 104.5 fL (80.0-100.0); Macrocytosis Moderate; Mean Platelet Volume 7.5; Monocytes # (A) 0.5 k/uL (0-1.0); Monocytes % (A) 4 %; Neutrophils % (A) 85 %; Platelet Count 200 k/uL (150-450); Poikilocytosis Slight; RBC 2.67 m/uL (4.30-5.90); RDW 16.7 % (11.5-15.5); WBC 11.9 k/uL (3.8-10.6)
[2020-03-27] MEDS ORDERED: WARFARIN 0.5 MG TAB PO ONE (18:00)
[2020-03-27 18:12] LABS: Albumin 2.9 g/dL (3.5-5.0); Calcium 8.8 mg/dL (8.4-10.2); Potassium 4.5 mmol/L (3.5-5.1); Total Bilirubin 0.8 mg/dL (0.2-1.3)
[2020-03-27] MEDS ORDERED: VANCOMYCIN IV PER PHARMACY 1 EACH MISC MISCELLANE PRN (18:50)
[2020-03-27 20:46] LABS: Glucose,Whole Blood 151 mg/dL (75-99)
[2020-03-27] MEDS: TAMSULOSIN 0.4 MG CAP.ER.24H PO SCH (20:59)
[2020-03-27] MEDS: ATORVASTATIN 10 MG TAB PO SCH (20:59)
[2020-03-27] MEDS: DONEPEZIL 10 MG TAB PO SCH (20:59)
--- NOTE | 2020-03-28 02:06 | PN ---
PROGRESS NOTE DATE OF SERVICE: 03/27/2020 REASON FOR FOLLOWUP: 1. Proteus mirabilis ESBL UTI. 2. MRSA bacteremia and right groin cellulitis. 3. Elevated white count. INTERVAL HISTORY: The patient is currently afebrile. The patient is breathing comfortably. The patient denies having any chest pain or shortness of breath. Minimal cough. No nausea, no vomiting. No abdominal pain or pain to the lower extremity. PHYSICAL EXAMINATION: Blood pressure 118/61 with a pulse of 63, temperature 98.2. He is 95% on 4 L nasal cannula. General description is an elderly male up in the chair in no distress. RESPIRATORY SYSTEM: Unlabored breathing, decreased breath sounds at the bases. No wheeze. HEART: S1, S2. Regular rate and rhythm. ABDOMEN: Soft, no tenderness. Legs are currently wrapped up, no obvious drainage on the dressing. LABS: Hemoglobin is 9 with white count 11.9, BUN of 71, creatinine 1.30. Vancomycin trough is elevated. DIAGNOSTIC IMPRESSION AND PLAN: 1. Patient with Proteus mirabilis ESBL urinary tract infection, adequately treated. Meropenem can be discontinued. 2. Patient with methicillin-resistant Staphylococcus aureus bacteremia source is likely soft tissue with repeat blood culture negative. He is on vancomycin and dose needs to be cut back to keep the trough around 15 and kidney function to be monitored closely. May need to switch to daptomycin if any further worsening of his kidney function. 3. Elevated white count with possible component of steroid effect and the patient is on hydrocortisone has no evidence of any worsening condition clinically. MMODL / IJN: [id number] /
[2020-03-28] MEDS: CHOLECALCIFEROL 1,000 UNIT TAB PO SCH (05:59)
[2020-03-28] MEDS: FERROUS SULFATE 325 MG TAB PO SCH (05:59)
[2020-03-28] MEDS: PANTOPRAZOLE 40 MG TABLET PO SCH (05:59)
[2020-03-28] MEDS: MAGNESIUM OXIDE 400 MG TAB PO SCH (05:59)
[2020-03-28] MEDS: METOPROLOL SUCCINATE (ER) 50 MG TAB.ER.24H PO SCH (05:59)
[2020-03-28 06:28] LABS: Glucose,Whole Blood 155 mg/dL (75-99)
[2020-03-28] MEDS: SYMBICORT 160-4.5 MCG INHALER INHALATION SCH ×2 (08:12→21:13)
[2020-03-28] MEDS: MEROPENEM 1 GM in SODIUM CHLORIDE 0.9% 100 ML IVPB SCH (09:05)
[2020-03-28] MEDS: FUROSEMIDE 10 MG/ML 4 ML VIAL IV SCH ×2 (09:07→20:41)
[2020-03-28] MEDS: FLUCONAZOLE 100 MG TAB PO SCH (09:08)
[2020-03-28] MEDS: CLOTRIMAZOLE/BETAMETH 1-0.05% CREAM 45 GM TUBE TOPICAL SCH (09:08)
[2020-03-28] MEDS: HYDROCORTISONE 10 MG TAB PO SCH ×2 (09:08→20:41)
[2020-03-28] MEDS: MEMANTINE 5 MG TAB PO SCH ×2 (09:08→20:41)
[2020-03-28] MEDS: buPROPion SR 150 MG TABLET.ER PO SCH (09:08)
[2020-03-28 09:58] LABS: INR 3.8 (<1.2); Prothrombin Time 37.1 sec (9.0-12.0)
[2020-03-28 10:15] LABS: Albumin 2.9 g/dL (3.5-5.0); Calcium 8.9 mg/dL (8.4-10.2); Potassium 4.8 mmol/L (3.5-5.1); Total Bilirubin 0.9 mg/dL (0.2-1.3); Total Protein 5.9 g/dL (6.3-8.2)
[2020-03-28 10:20] LABS: Vancomycin,Random 29.2 ug/mL
[2020-03-28 10:24] LABS: Anisocytosis Slight; HCT 30.4 % (39.0-53.0); HGB 9.3 gm/dL (13.0-17.5); Hypochromasia Moderate; MCH 32.2 pg (25.0-35.0); MCHC 30.8 g/dL (31.0-37.0); MCV 104.4 fL (80.0-100.0); Macrocytosis Moderate; Platelet Count 191 k/uL (150-450); Poikilocytosis Slight; RBC 2.91 m/uL (4.30-5.90); RDW 16.8 % (11.5-15.5); WBC 13.7 k/uL (3.8-10.6)
[2020-03-28] MEDS: ALBUTEROL HFA INHALER INHALATION PRN (10:55)
[2020-03-28 11:41] LABS: Glucose,Whole Blood 162 mg/dL (75-99)
[2020-03-28 12:30] LABS: Band Neutrophils % 1 %; Basophils # (M) 0.14 k/uL (0-0.2); Lymphocytes # (M) 0.82 k/uL (1.0-4.8); Metamyelocytes # (M) 0.14 k/uL (0); Metamyelocytes % 1 %; Monocytes # (M) 0.41 k/uL (0-1.0); Myelocytes # (M) 0.14 k/uL (0); Myelocytes % 1 %; Neutrophils % (M) 90 %; Nucleated Red Blood Cells 0 /100 WBC (0-0); Polychromasia Present; Total Cells Counted 200
[2020-03-28 12:31] LABS: Toxic Granulation Present
--- NOTE | 2020-03-28 12:50 | PN ---
PROGRESS NOTE DATE OF SERVICE: 03/28/2020 REASON FOR FOLLOWUP: 1. ESBL Proteus urinary intact infection. 2. MRSA bacteremia. INTERVAL HISTORY: Patient is currently afebrile. Patient is breathing comfortably. Patient denies having any chest pain or shortness of breath. No cough. No nausea, no vomiting, no abdominal pain, no diarrhea. PHYSICAL EXAMINATION: Blood pressure 111/55 with a pulse of 78, temperature 97.5. He is 97% on 2 L. General description is an elderly male, up in the chair in no distress. RESPIRATORY SYSTEM: Unlabored breathing, clear to auscultation anteriorly. HEART: S1, S2. Regular rate and rhythm. ABDOMEN: Soft. No tenderness. Legs with no change. LABS: Hemoglobin 9.8, white count 13.7, creatinine of 1.37, Vanco random is 29.2. DIAGNOSTIC IMPRESSION AND PLAN: 1. Patient with ESBL proteus mirabilis UTI that has been adequately treated. Repeat urine has been negative. Meropenem will be discontinued. 2. Patient with MRSA bacteremia and soft tissue source now with worsening of his kidney function and also noticed to have a persistently elevated white count. Will discontinue vancomycin, start the patient on daptomycin and monitor clinical course closely. MMODL / IJN: [id number] /
--- NOTE | 2020-03-28 13:49 | P.PN ---
Subjective Progress Note Date: 03/28/20 Te Brady is a 74-year-old male patient who presented to the ER from rehab with complaints of increased O fungal rash in the groin eroding foreskin secondary to catheter. Patient also had acute kidney injury and elevated INR. Patient's past medical history of atrial fibrillation which she is maintained on Coumadin, heart failure, COPD, dementia, hypertension, myocardial infarction, osteoarthritis with sleep apnea in which he uses home CPAP machine, pacemaker, anxiety and heart valve replacement. Patient's creatinine upon admission 3.07 and bun 77 potassium also elevated at 56. INR greater than 10. UA positive for the same Estrace. Chest x-ray completed showing T over the left lower lung r egion correlate for atelectasis or pneumonia. At this time patient has been started on Rocephin and Levaquin for IV antibiotics. Urology services have been consulted. Nephrology service is consulted for acute kidney injury. Potassium lowering cocktail given per nephrology. Dr. zavala and has been consulted for pulmonary due to possible pneumonia. Wound and blood cultures ordered. at this time patient denies chest pain or shortness of breath. Patient denies nausea vomiting or diarrhea. On 03/19/2020 patient was seen and examined on the medical floor he is alert and oriented 3 in no apparent distress, he is complaining of diarrhea with stool incontinence, otherwise he denies any complaints there is no fever or chills no headache or dizziness, no chest pain no shortness of breath no cough no nausea or vomiting no abdominal pain no blood in the stools no burning with urination no frequency or urgency and no hematuria 03/20/2020 patient was seen and examined on the medical floor he is alert and oriented 3 in no apparent distress there is no fever or chills no headache or d izziness no chest pain no shortness of breath no cough no nausea or vomiting no abdominal pain no diarrhea no blood in the stools no burning with urination no frequency or urgency and no hematuria. Clinton catheter has been removed and patient is able to urinate. INR is still elevated patient will be getting vitamin K 2.5 mg by mouth 1 time today on 03/21/2020 patient is alert and oriented 3currently sitting up in chair. INR today 3.5. patient maintained on meropenem and vancomycin for IV an tibiotics. At that time Clinton catheter has been removed to patient voiding independently will follow-up outpatient with urology for possible cystoscopy. At this time patient denies chest pain or shortness of breath. Patient denies nausea vomiting or diarrhea. Patient denies any urinary burning or frequency On 03/22/2020 patient was seen and examined on the medical floor he is alert and oriented 3 in no distress, he had the midline placed today and antibiotic were resumed, white blood count is elevated at 13.5, there is no fever or chills no headache or dizziness no chest pain no shortness of breath no cough no nausea or vomiting no abdominal pain no diarrhea and no urinary symptoms. On 03/23/2020 patient was seen and examined on the medical floor he is alert and oriented 3 in no apparent distress there is no fever or chills no headache or dizziness no chest pain no shortness of breath no cough no nausea or vomiting no abdominal pain no diarrhea and no urinary symptoms white blood count remains elevated, patient was resumed on IV antibiotic via midline will continue to monitor during this weekend. On 03/24/2020 patient was seen and examined on the medical floor he is alert and oriented in no apparent distress he is sitting up in chair he denies any complaints at this time there is no fever or chills no headache or dizziness no chest pain no shortness of breath no palpitation no cough no nausea or vomiting no abdominal pain no diarrhea no blood in the stools no burning with urination no frequency or urgency and no hematuria. On 03/25/2020 patient was seen and examined on the medical floor he is alert and oriented in no distress he denies any symptoms at this time, he is sitting up in a chair eating his meal, there is no fever or chills no headache or dizziness no chest pain no shortness of breath no cough no nausea or vomiting no abdominal pain no diarrhea no blood in the stools no burning with urination no frequency or urgency and no hematuria. Infectious disease recommendation reviewed patient has a midline he [facility]. on 03/26/2020 patient was seen and examined on the medical floor he is alert and oriented 3 in no distress he is complaining of generalized weakness otherwise no specific complaints there is no fever or chills no headache or dizziness no chest pain no shortness of breath no cough no nausea or vomiting no abdominal pain no diarrhea and no urinary symptoms, he remains on IV antibiotic white blood count is still elevated . Patient has a midline in the right arm, he will need to continue IV antibiotic at the [facility], he is urinating well without Clinton catheter On 03/28/2020 patient is alert and oriented 3. Discussed case with Dr. Walt Aviles and continue daptomycin recommending keeping patient 24 more hours to watch kidney function. Likely discharge to [facility] tomorrow. Patient denies chest pain or shortness of breath. Patient denies nausea vomiting or prakash rrhea. Patient denies any urinary burning or frequency. Did discuss case also with nephrology services recommending lasix twice a day upon discharge Objective - Vital Signs Vital signs: Vital Signs Temp 97.9 F 03/28/20 12:00 Pulse 60 03/28/20 12:00 Resp 18 03/28/20 12:00 BP 103/59 03/28/20 12:00 Pulse Ox 96 03/28/20 12:00 Intake & Output 03/27/20 03/28/20 03/28/20 18:59 06:59 18:59 Intake Total 720 1200 480 Output Total 350 Balance 720 850 480 Weight 114 kg 169.2 kg Intake: Intake, IV Titration 600 Amount Meropenem 1 gm In Sodium 100 Chloride 0.9% 100 ml @ 33 .3 mls/hr IVPB Q8H PAU Rx #:[id number] Vancomycin 2,250 mg In 500 Sodium Chloride 0.9% 500 ml 500 ml @ 167 mls/hr IVPB Q24H PAU Rx#: [id number] Oral 720 600 480 Output: Urine 350 Other: Voiding Method Urinal Urinal Urinal # Voids 0 0 # Bowel Movements 1 1 - Exam Head normocephalic and atraumatic Neck supple no JVD no goiter Lungs clear to auscultation bilaterally no wheezing or crackles Heart irregular rate. known atrial fibrillation Abdomen is soft nontender nondistended positive bowel sounds no hepatosplenomegaly Extremities no edema no cyanosis or clubbing Neuro alert and orientated to 2. Dementia Drainage noted to penile area around catheter. Erosion to groin area. - Labs CBC & Chem 7: 03/28/20 09:22 03/28/20 09:22 Labs: Abnormal Lab Results - Last 24 Hours (Table) 03/27/20 03/27/20 03/27/20 Range/Units 16:51 17:17 17:17 WBC 11.9 H (3.8-10.6) k/uL RBC 2.67 L (4.30-5.90) m/uL Hgb 9.0 L (13.0-17.5) gm/dL Hct 27.9 L (39.0-53.0) % MCV 104.5 H (80.0-100.0) fL MCHC (31.0-37.0) g/dL RDW 16.7 H (11.5-15.5) % Neutrophils # 10.0 H (1.3-7.7) k/uL Neutrophils # (Manual) (1.3-7.7) k/uL Lymphocytes # 0.8 L (1.0-4.8) k/uL Lymphocytes # (Manual) (1.0-4.8) k/uL Metamyelocytes # (Man) (0) k/uL Myelocytes # (Manual) (0) k/uL PT (9.0-12.0) sec INR (<1.2) Chloride 94 L (98-107) mmol/L BUN 71 H (9-20) mg/dL Creatinine 1.30 H (0.66-1.25) mg/dL Glucose 129 H (74-99) mg/dL POC Glucose (mg/dL) 142 H (75-99) mg/dL Total Protein 6.0 L (6.3-8.2) g/dL Albumin 2.9 L (3.5-5.0) g/dL 03/27/20 03/28/20 03/28/20 Range/Units 20:43 06:27 09:22 WBC (3.8-10.6) k/uL RBC (4.30-5.90) m/uL Hgb (13.0-17.5) gm/dL Hct (39.0-53.0) % MCV (80.0-100.0) fL MCHC (31.0-37.0) g/dL RDW (11.5-15.5) % Neutrophils # (1.3-7.7) k/uL Neutrophils # (Manual) (1.3-7.7) k/uL Lymphocytes # (1.0-4.8) k/uL Lymphocytes # (Manual) (1.0-4.8) k/uL Metamyelocytes # (Man) (0) k/uL Myelocytes # (Manual) (0) k/uL PT 37.1 H (9.0-12.0) sec INR 3.8 H (<1.2) Chloride (98-107) mmol/L BUN (9-20) mg/dL Creatinine (0.66-1.25) mg/dL Glucose (74-99) mg/dL POC Glucose (mg/dL) 151 H 155 H (75-99) mg/dL Total Protein (6.3-8.2) g/dL Albumin (3.5-5.0) g/dL 03/28/20 03/28/20 03/28/20 Range/Units 09:22 09:22 11:36 WBC 13.7 H (3.8-10.6) k/uL RBC 2.91 L (4.30-5.90) m/uL Hgb 9.3 L (13.0-17.5) gm/dL Hct 30.4 L (39.0-53.0) % MCV 104.4 H (80.0-100.0) fL MCHC 30.8 L (31.0-37.0) g/dL RDW 16.8 H (11.5-15.5) % Neutrophils # (1.3-7.7) k/uL Neutrophils # (Manual) 12.40 H (1.3-7.7) k/uL Lymphocytes # (1.0-4.8) k/uL Lymphocytes # (Manual) 0.82 L (1.0-4.8) k/uL Metamyelocytes # (Man) 0.14 H (0) k/uL Myelocytes # (Manual) 0.14 H (0) k/uL PT (9.0-12.0) sec INR (<1.2) Chloride (98-107) mmol/L BUN 77 H (9-20) mg/dL Creatinine 1.37 H (0.66-1.25) mg/dL Glucose 161 H (74-99) mg/dL POC Glucose (mg/dL) 162 H (75-99) mg/dL Total Protein 5.9 L (6.3-8.2) g/dL Albumin 2.9 L (3.5-5.0) g/dL Assessment and Plan Assessment: 1. Infection around catheter site with penile erosion. wound culture showing MRSA Enterobacter cloacae. Patient currently on vancomycin and meropenem critical care services are following 2. MRSA bacteremia repeat blood cultures ordered, maintained on IV vancomycin 3. Gram-negative urinary tract infection related to ESBL Proteus mirabilis. Infectious disease following currently maintained on daptomycin 4. Acute kidney injury with elevated potassium. Creatinine elevated at 3.06 upon admission. Continue normal saline at 50. Potassium lowing cocktail ordered per nephrology services. kidney numbers are trending down 5. Supratherapeutic INR. Hold Coumadin and recheck. patient did receive vitamin K. Current INR 3.5 6. Possible pneumonia. Patient started on Levaquin and Rocephin. Pulmonary service is consulted 7. History of insulin-dependent diabetes mellitus 8. History of essential hypertension 9. History of hyperlipidemia. Maintained on statin 10. History of stroke with suppressive aphasia 11. History of morbid obesity 12. History of urinary retention and difficulty with Clinton insertion. per urology servicesFoley catheter has been removed patient advised follow-up in one month with urology services for cystoscopy 13. Dementia. Maintained on Aricept and Namenda 14. Diarrhea will check stools for C. diff. 15. Nurse reporting that patient is making statements about being depressed, his is also concerned in that regard, at this time will restart patient on Wellbutrin SR 150 mg by mouth once daily DVT prophylaxis SCDs due to subtherapeutic INR. GI prophylaxis Protonix Urology, nephrology, infectious disease and pulmonary services are following maintained on daptomycin and Diflucan
--- NOTE | 2020-03-28 15:53 | PN ---
PROGRESS NOTE Patient is seen for followup for acute kidney injury and volume overload, currently he is maintained on IV Lasix. The patient's volume status has improved significantly. His serum creatinine is staying at about 1.3 mg/dL. PHYSICAL EXAMINATION: On examination today, blood pressure was 111/55, heart rate 60 per minute, he is afebrile. Examination of the heart S1, S2. Examination of the lungs, bilateral breath sounds are heard. Decreased breath sounds at bases. Abdomen is soft, nontender, obese. Examination of lower extremities shows much improved edema. [employer] exam is grossly intact. LABS: Show Sodium 138, potassium 4.8, chloride 104, BUN 77, serum creatinine 1.37, hemoglobin 9.3 g/dL. ASSESSMENT: 1. Acute kidney injury, currently resolved. 2. CKD, serum creatinine about 1.3, stage III. Renal function is stable, etiology nephrosclerosis. 3. Volume overload, significantly improved. 4. MRSA bacteremia, maintained on IV vancomycin. 5. Penile erosion and wound on the penis with urinary tract infection as well. Urine culture grew MRSA and urine culture grew Proteus mirabilis. PLAN: Continue IV Lasix until discharge and patient can be switched to p.o. Lasix 40 mg b.i.d. MMODL / IJN: [id number] /
[2020-03-28 16:45] LABS: Glucose,Whole Blood 131 mg/dL (75-99)
--- NOTE | 2020-03-28 17:43 | P.PN ---
Subjective Progress Note Date: 03/27/20 Te Brady is a 74-year-old male patient who presented to the ER from rehab with complaints of increased O fungal rash in the groin eroding foreskin secondary to catheter. Patient also had acute kidney injury and elevated INR. Patient's past medical history of atrial fibrillation which she is maintained on Coumadin, heart failure, COPD, dementia, hypertension, myocardial infarction, osteoarthritis with sleep apnea in which he uses home CPAP machine, pacemaker, anxiety and heart valve replacement. Patient's creatinine upon admission 3.07 and bun 77 potassium also elevated at 56. INR greater than 10. UA positive for the same Estrace. Chest x-ray completed showing T over the left lower lung r egion correlate for atelectasis or pneumonia. At this time patient has been started on Rocephin and Levaquin for IV antibiotics. Urology services have been consulted. Nephrology service is consulted for acute kidney injury. Potassium lowering cocktail given per nephrology. Dr. zavala and has been consulted for pulmonary due to possible pneumonia. Wound and blood cultures ordered. at this time patient denies chest pain or shortness of breath. Patient denies nausea vomiting or diarrhea. On 03/19/2020 patient was seen and examined on the medical floor he is alert and oriented 3 in no apparent distress, he is complaining of diarrhea with stool incontinence, otherwise he denies any complaints there is no fever or chills no headache or dizziness, no chest pain no shortness of breath no cough no nausea or vomiting no abdominal pain no blood in the stools no burning with urination no frequency or urgency and no hematuria 03/20/2020 patient was seen and examined on the medical floor he is alert and oriented 3 in no apparent distress there is no fever or chills no headache or d izziness no chest pain no shortness of breath no cough no nausea or vomiting no abdominal pain no diarrhea no blood in the stools no burning with urination no frequency or urgency and no hematuria. Clinton catheter has been removed and patient is able to urinate. INR is still elevated patient will be getting vitamin K 2.5 mg by mouth 1 time today on 03/21/2020 patient is alert and oriented 3currently sitting up in chair. INR today 3.5. patient maintained on meropenem and vancomycin for IV an tibiotics. At that time Clinton catheter has been removed to patient voiding independently will follow-up outpatient with urology for possible cystoscopy. At this time patient denies chest pain or shortness of breath. Patient denies nausea vomiting or diarrhea. Patient denies any urinary burning or frequency On 03/22/2020 patient was seen and examined on the medical floor he is alert and oriented 3 in no distress, he had the midline placed today and antibiotic were resumed, white blood count is elevated at 13.5, there is no fever or chills no headache or dizziness no chest pain no shortness of breath no cough no nausea or vomiting no abdominal pain no diarrhea and no urinary symptoms. On 03/23/2020 patient was seen and examined on the medical floor he is alert and oriented 3 in no apparent distress there is no fever or chills no headache or dizziness no chest pain no shortness of breath no cough no nausea or vomiting no abdominal pain no diarrhea and no urinary symptoms white blood count remains elevated, patient was resumed on IV antibiotic via midline will continue to monitor during this weekend. On 03/24/2020 patient was seen and examined on the medical floor he is alert and oriented in no apparent distress he is sitting up in chair he denies any complaints at this time there is no fever or chills no headache or dizziness no chest pain no shortness of breath no palpitation no cough no nausea or vomiting no abdominal pain no diarrhea no blood in the stools no burning with urination no frequency or urgency and no hematuria. On 03/25/2020 patient was seen and examined on the medical floor he is alert and oriented in no distress he denies any symptoms at this time, he is sitting up in a chair eating his meal, there is no fever or chills no headache or dizziness no chest pain no shortness of breath no cough no nausea or vomiting no abdominal pain no diarrhea no blood in the stools no burning with urination no frequency or urgency and no hematuria. Infectious disease recommendation reviewed patient has a midline he will need to go to the [facility] on IV antibiotic. on 03/26/2020 patient was seen and examined on the medical floor he is alert and oriented 3 in no distress he is complaining of generalized weakness otherwise no specific complaints there is no fever or chills no headache or dizziness no chest pain no shortness of breath no cough no nausea or vomiting no abdominal pain no diarrhea and no urinary symptoms, he remains on IV antibiotic white blood count is still elevated . Patient has a midline in the right arm, he will need to continue IV antibiotic at the [facility], he is urinating well without Clinton catheter. On 03/27/2020 patient was seen and examined on the medical floor he is alert and oriented 3 in no distress there is no fever or chills no headache or dizziness no chest pain no shortness of breath no cough no nausea or vomiting no abdominal pain no diarrhea no blood in the stools no burning with urination no frequency or urgency and no hematuria is still complaining of generalized weakness Objective - Vital Signs Vital signs: Vital Signs Temp 97.6 F 03/27/20 12:00 Pulse 60 03/27/20 12:00 Resp 18 03/27/20 12:00 BP 91/46 03/27/20 12:00 Pulse Ox 97 03/27/20 12:00 Intake & Output 03/26/20 03/27/20 03/27/20 18:59 06:59 18:59 Intake Total 720 240 Output Total 200 Balance 720 -200 240 Weight 114 kg Intake: Oral 720 240 Output: Urine 200 Other: Voiding Method Urinal Urinal Urinal # Voids 1 1 0 # Bowel Movements 1 1 - Exam Head normocephalic and atraumatic Neck supple no JVD no goiter Lungs clear to auscultation bilaterally no wheezing or crackles Heart irregular rate. known atrial fibrillation Abdomen is soft nontender nondistended positive bowel sounds no hepatosplenomegaly Extremities no edema no cyanosis or clubbing Neuro alert and orientated to 2. Dementia Drainage noted to penile area around catheter. Erosion to groin area. - Labs CBC & Chem 7: 03/28/20 09:22 03/28/20 09:22 Labs: Abnormal Lab Results - Last 24 Hours (Table) 03/26/20 03/26/20 03/27/20 Range/Units 16:54 20:51 06:22 PT (9.0-12.0) sec INR (<1.2) POC Glucose (mg/dL) 151 H 160 H 135 H (75-99) mg/dL 03/27/20 03/27/20 Range/Units 08:30 11:42 PT 38.5 H (9.0-12.0) sec INR 3.9 H (<1.2) POC Glucose (mg/dL) 169 H (75-99) mg/dL Microbiology - Last 24 Hours (Table) 03/20/20 18:45 Blood Culture - Final Blood No Growth after 144 hours 03/20/20 18:30 Blood Culture - Final Blood No Growth after 144 hours Assessment and Plan Assessment: 1. Infection around catheter site with penile erosion. wound culture showing MRSA Enterobacter cloacae. Patient currently on vancomycin and meropenem critical care services are following 2. MRSA bacteremia repeat blood cultures ordered, maintained on IV vancomycin 3. Gram-negative urinary tract infection related to ESBL Proteus mirabilis. Patient remains on meropenem and vancomycin 4. Acute kidney injury with elevated potassium. Creatinine elevated at 3.06 upon admission. Continue normal saline at 50. Potassium lowing cocktail ordered per nephrology services. kidney numbers are trending down 5. Supratherapeutic INR. Hold Coumadin and recheck. patient did receive vitamin K. Current INR 3.5 6. Possible pneumonia. Patient started on Levaquin and Rocephin. Pulmonary service is consulted 7. History of insulin-dependent diabetes mellitus 8. History of essential hypertension 9. History of hyperlipidemia. Maintained on statin 10. History of stroke with suppressive aphasia 11. History of morbid obesity 12. History of urinary retention and difficulty with Clinton insertion. per urology servicesFoley catheter has been removed patient advised follow-up in one month with urology services for cystoscopy 13. Dementia. Maintained on Aricept and Namenda 14. Diarrhea will check stools for C. diff. 15. Nurse reporting that patient is making statements about being depressed, his is also concerned in that regard, at this time will restart patient on Wellbutrin SR 150 mg by mouth once daily DVT prophylaxis SCDs due to subtherapeutic INR. GI prophylaxis Protonix Urology, nephrology and pulmonary services are following Patient maintained on vancomycin and meropenem repeat blood cultures ordered
[2020-03-28] MEDS ORDERED: WARFARIN 0.5 MG TAB PO ONE (18:00)
[2020-03-28] MEDS: metroNIDAZOLE 500 MG TAB PO SCH ×2 (18:18→20:41)
[2020-03-28 20:06] LABS: Glucose,Whole Blood 158 mg/dL (75-99)
[2020-03-28] MEDS: TAMSULOSIN 0.4 MG CAP.ER.24H PO SCH (20:41)
[2020-03-28] MEDS: DONEPEZIL 10 MG TAB PO SCH (20:41)
[2020-03-29 06:25] LABS: Glucose,Whole Blood 153 mg/dL (75-99)
[2020-03-29] MEDS: FERROUS SULFATE 325 MG TAB PO SCH (06:38)
[2020-03-29] MEDS: METOPROLOL SUCCINATE (ER) 50 MG TAB.ER.24H PO SCH (06:38)
[2020-03-29] MEDS: CHOLECALCIFEROL 1,000 UNIT TAB PO SCH (06:38)
[2020-03-29] MEDS: PANTOPRAZOLE 40 MG TABLET PO SCH (06:39)
[2020-03-29] MEDS: MAGNESIUM OXIDE 400 MG TAB PO SCH (06:39)
[2020-03-29] MEDS: CLOTRIMAZOLE/BETAMETH 1-0.05% CREAM 45 GM TUBE TOPICAL SCH ×3 (06:40→20:35)
[2020-03-29] MEDS: SYMBICORT 160-4.5 MCG INHALER INHALATION SCH ×2 (08:35→19:49)
[2020-03-29] MEDS: ALBUTEROL HFA INHALER INHALATION PRN (08:36)
[2020-03-29 08:59] LABS: INR 3.7 (<1.2); Prothrombin Time 36.1 sec (9.0-12.0)
[2020-03-29] MEDS: FLUCONAZOLE 100 MG TAB PO SCH (10:37)
[2020-03-29] MEDS: buPROPion SR 150 MG TABLET.ER PO SCH (10:37)
[2020-03-29] MEDS: metroNIDAZOLE 500 MG TAB PO SCH ×3 (10:38→20:27)
[2020-03-29] MEDS: MEMANTINE 5 MG TAB PO SCH ×2 (10:38→20:27)
[2020-03-29] MEDS: FUROSEMIDE 10 MG/ML 4 ML VIAL IV SCH ×2 (10:38→20:27)
[2020-03-29] MEDS: HYDROCORTISONE 10 MG TAB PO SCH ×2 (10:38→20:27)
[2020-03-29 11:08] LABS: Calcium 9.1 mg/dL (8.4-10.2); Potassium 5.3 mmol/L (3.5-5.1)
[2020-03-29 11:38] LABS: Anisocytosis Slight; Basophils # (A) 0.1 k/uL (0-0.2); Basophils % (A) 1 %; Eosinophils # (A) 0.3 k/uL (0-0.7); Eosinophils % (A) 3 %; HCT 29.4 % (39.0-53.0); Hypochromasia Marked; Lymphocytes # (A) 1.1 k/uL (1.0-4.8); Lymphocytes % (A) 10 %; MCH 32.7 pg (25.0-35.0); MCHC 30.7 g/dL (31.0-37.0); MCV 106.6 fL (80.0-100.0); Macrocytosis Marked; Mean Platelet Volume 9.3; Monocytes # (A) 0.6 k/uL (0-1.0); Monocytes % (A) 5 %; Neutrophils # (A) 8.8 k/uL (1.3-7.7); Neutrophils % (A) 80 %; Platelet Count 182 k/uL (150-450); Poikilocytosis Slight; RBC 2.76 m/uL (4.30-5.90); RDW 17.4 % (11.5-15.5)
--- NOTE | 2020-03-29 11:53 | PN ---
PROGRESS NOTE Patient is seen for followup for acute kidney injury, hyperkalemia. He is currently maintained on IV Lasix. Serum creatinine is staying about 1.3-1.4 mg/dL. PHYSICAL EXAMINATION: Today, patient is comfortable. Blood pressure is 85/38, heart rate 60 per minute, he is afebrile. Examination of the heart S1, S2. Examination of the lungs, bilateral breath sounds are heard. Decreased breath sounds at the bases. Abdomen is soft, obese. Examination of lower extremities shows bilateral extremities to be wrapped. Edema has improved in both upper and lower extremities. [employer] exam grossly intact. LABS: Show sodium 138, potassium 5.3, chloride 105, CO2 is 28, BUN 85, creatinine 1.46L. ASSESSMENT: 1. Chronic kidney disease, NKF stage III. Baseline creatinine about 1.3 mg/dL. Serum creatinine is slightly elevated. However, patient remains volume overloaded. I will continue with the IV Lasix until discharge. 2. Mild hyperkalemia. Expect improvement with continued use of loop diuretics. 3. Severe volume overload, currently improved. 4. MRSA bacteremia, maintained on IV vancomycin. 5. Benign erosion and wound on the penis with urinary tract infection. Would culture grew MRSA and urine culture grew Proteus mirabilis. PLAN: Continue with IV Lasix until patient is discharged and follow up with labs as outpatient. MMODL / IJN: [id number] /
[2020-03-29 12:28] LABS: Polychromasia Present
[2020-03-29 12:43] LABS: Glucose,Whole Blood 148 mg/dL (75-99)
[2020-03-29 17:03] LABS: Glucose,Whole Blood 162 mg/dL (75-99)
[2020-03-29] MEDS ORDERED: WARFARIN 0.5 MG TAB PO ONE (18:00)
--- NOTE | 2020-03-29 18:20 | P.PN ---
Subjective Progress Note Date: 03/29/20 Te Brady is a 74-year-old male patient who presented to the ER from rehab with complaints of increased O fungal rash in the groin eroding foreskin secondary to catheter. Patient also had acute kidney injury and elevated INR. Patient's past medical history of atrial fibrillation which she is maintained on Coumadin, heart failure, COPD, dementia, hypertension, myocardial infarction, osteoarthritis with sleep apnea in which he uses home CPAP machine, pacemaker, anxiety and heart valve replacement. Patient's creatinine upon admission 3.07 and bun 77 potassium also elevated at 56. INR greater than 10. UA positive for the same Estrace. Chest x-ray completed showing T over the left lower lung r egion correlate for atelectasis or pneumonia. At this time patient has been started on Rocephin and Levaquin for IV antibiotics. Urology services have been consulted. Nephrology service is consulted for acute kidney injury. Potassium lowering cocktail given per nephrology. Dr. zavala and has been consulted for pulmonary due to possible pneumonia. Wound and blood cultures ordered. at this time patient denies chest pain or shortness of breath. Patient denies nausea vomiting or diarrhea. On 03/19/2020 patient was seen and examined on the medical floor he is alert and oriented 3 in no apparent distress, he is complaining of diarrhea with stool incontinence, otherwise he denies any complaints there is no fever or chills no headache or dizziness, no chest pain no shortness of breath no cough no nausea or vomiting no abdominal pain no blood in the stools no burning with urination no frequency or urgency and no hematuria 03/20/2020 patient was seen and examined on the medical floor he is alert and oriented 3 in no apparent distress there is no fever or chills no headache or d izziness no chest pain no shortness of breath no cough no nausea or vomiting no abdominal pain no diarrhea no blood in the stools no burning with urination no frequency or urgency and no hematuria. Clinton catheter has been removed and patient is able to urinate. INR is still elevated patient will be getting vitamin K 2.5 mg by mouth 1 time today on 03/21/2020 patient is alert and oriented 3currently sitting up in chair. INR today 3.5. patient maintained on meropenem and vancomycin for IV an tibiotics. At that time Clinton catheter has been removed to patient voiding independently will follow-up outpatient with urology for possible cystoscopy. At this time patient denies chest pain or shortness of breath. Patient denies nausea vomiting or diarrhea. Patient denies any urinary burning or frequency On 03/22/2020 patient was seen and examined on the medical floor he is alert and oriented 3 in no distress, he had the midline placed today and antibiotic were resumed, white blood count is elevated at 13.5, there is no fever or chills no headache or dizziness no chest pain no shortness of breath no cough no nausea or vomiting no abdominal pain no diarrhea and no urinary symptoms. On 03/23/2020 patient was seen and examined on the medical floor he is alert and oriented 3 in no apparent distress there is no fever or chills no headache or dizziness no chest pain no shortness of breath no cough no nausea or vomiting no abdominal pain no diarrhea and no urinary symptoms white blood count remains elevated, patient was resumed on IV antibiotic via midline will continue to monitor during this weekend. On 03/24/2020 patient was seen and examined on the medical floor he is alert and oriented in no apparent distress he is sitting up in chair he denies any complaints at this time there is no fever or chills no headache or dizziness no chest pain no shortness of breath no palpitation no cough no nausea or vomiting no abdominal pain no diarrhea no blood in the stools no burning with urination no frequency or urgency and no hematuria. On 03/25/2020 patient was seen and examined on the medical floor he is alert and oriented in no distress he denies any symptoms at this time, he is sitting up in a chair eating his meal, there is no fever or chills no headache or dizziness no chest pain no shortness of breath no cough no nausea or vomiting no abdominal pain no diarrhea no blood in the stools no burning with urination no frequency or urgency and no hematuria. Infectious disease recommendation reviewed patient has a midline he will need to go to the long term on IV antibiotic. on 03/26/2020 patient was seen and examined on the medical floor he is alert and oriented 3 in no distress he is complaining of generalized weakness otherwise no specific complaints there is no fever or chills no headache or dizziness no chest pain no shortness of breath no cough no nausea or vomiting no abdominal pain no diarrhea and no urinary symptoms, he remains on IV antibiotic white blood count is still elevated . Patient has a midline in the right arm, he will need to continue IV antibiotic at the long term, he is urinating well without Clinton catheter. On 03/27/2020 patient was seen and examined on the medical floor he is alert and oriented 3 in no distress there is no fever or chills no headache or dizziness no chest pain no shortness of breath no cough no nausea or vomiting no abdominal pain no diarrhea no blood in the stools no burning with urination no frequency or urgency and no hematuria is still complaining of generalized weakness On 03/28/2020 patient is alert and oriented 3. Discussed case with Dr. Walt Aviles and continue daptomycin recommending keeping patient 24 more hours to watch kidney function. Likely discharge to [facility] tomorrow. Patient denies chest pain or shortness of breath. Patient denies nausea vomiting or diarrhea. Patient denies any urinary burning or frequency. Did discuss case also with nephrology services recommending lasix twice a day upon discharge On 03/29/2020 patient was seen and examined on the medical floor he is alert and oriented 3 in no apparent distress there is no fever or chills no headache or dizziness no chest pain no shortness of breath no cough no nausea or vomiting no abdominal pain no diarrhea no blood in the stools no burning with urination no frequency or urgency and no hematuria. Kidney function is slightly worse today. At this time patient is stable, awaiting clearance from infectious disease and nephrology, and the recommendation for discharge antibiotics Objective - Vital Signs Vital signs: Vital Signs Temp 97.7 F 03/29/20 11:50 Pulse 61 03/29/20 16:10 Resp 18 03/29/20 16:10 BP 102/35 03/29/20 16:10 Pulse Ox 95 03/29/20 16:10 Intake & Output 03/28/20 03/29/20 03/29/20 18:59 06:59 18:59 Intake Total 600 600 Output Total 350 500 Balance 600 -350 100 Weight 170.3 kg Intake: Oral 600 600 Output: Urine 350 500 Other: Voiding Method Urinal Urinal Urinal # Voids 0 # Bowel Movements 1 - Exam Head normocephalic and atraumatic Neck supple no JVD no goiter Lungs clear to auscultation bilaterally no wheezing or crackles Heart irregular rate. known atrial fibrillation Abdomen is soft nontender nondistended positive bowel sounds no hepatosplenomegaly Extremities no edema no cyanosis or clubbing Neuro alert and orientated to 2. Dementia Drainage noted to penile area around catheter. Erosion to groin area. - Labs CBC & Chem 7: 03/29/20 08:13 03/29/20 08:13 Labs: Abnormal Lab Results - Last 24 Hours (Table) 03/28/20 03/29/20 03/29/20 Range/Units 19:58 06:24 08:13 WBC (3.8-10.6) k/uL RBC (4.30-5.90) m/uL Hgb (13.0-17.5) gm/dL Hct (39.0-53.0) % MCV (80.0-100.0) fL MCHC (31.0-37.0) g/dL RDW (11.5-15.5) % Neutrophils # (1.3-7.7) k/uL Macrocytosis PT 36.1 H (9.0-12.0) sec INR 3.7 H (<1.2) Potassium (3.5-5.1) mmol/L BUN (9-20) mg/dL Creatinine (0.66-1.25) mg/dL Glucose (74-99) mg/dL POC Glucose (mg/dL) 158 H 153 H (75-99) mg/dL 03/29/20 03/29/20 03/29/20 Range/Units 08:13 08:13 12:40 WBC 11.0 H (3.8-10.6) k/uL RBC 2.76 L (4.30-5.90) m/uL Hgb 9.0 L (13.0-17.5) gm/dL Hct 29.4 L (39.0-53.0) % MCV 106.6 H (80.0-100.0) fL MCHC 30.7 L (31.0-37.0) g/dL RDW 17.4 H (11.5-15.5) % Neutrophils # 8.8 H (1.3-7.7) k/uL Macrocytosis Marked A PT (9.0-12.0) sec INR (<1.2) Potassium 5.3 H (3.5-5.1) mmol/L BUN 85 H (9-20) mg/dL Creatinine 1.46 H (0.66-1.25) mg/dL Glucose 112 H (74-99) mg/dL POC Glucose (mg/dL) 148 H (75-99) mg/dL 03/29/20 Range/Units 16:49 WBC (3.8-10.6) k/uL RBC (4.30-5.90) m/uL Hgb (13.0-17.5) gm/dL Hct (39.0-53.0) % MCV (80.0-100.0) fL MCHC (31.0-37.0) g/dL RDW (11.5-15.5) % Neutrophils # (1.3-7.7) k/uL Macrocytosis PT (9.0-12.0) sec INR (<1.2) Potassium (3.5-5.1) mmol/L BUN (9-20) mg/dL Creatinine (0.66-1.25) mg/dL Glucose (74-99) mg/dL POC Glucose (mg/dL) 162 H (75-99) mg/dL Assessment and Plan Assessment: 1. Infection around catheter site with penile erosion. wound culture showing MRSA Enterobacter cloacae. Patient currently on vancomycin and meropenem critical care services are following 2. MRSA bacteremia repeat blood cultures ordered, maintained on IV vancomycin 3. Gram-negative urinary tract infection related to ESBL Proteus mirabilis. Patient remains on meropenem and vancomycin 4. Acute kidney injury with elevated potassium. Creatinine elevated at 3.06 upon admission. Continue normal saline at 50. Potassium lowing cocktail ordered per nephrology services. kidney numbers are trending down 5. Supratherapeutic INR. Hold Coumadin and recheck. patient did receive vitami n K. Current INR 3.5 6. Possible pneumonia. Patient started on Levaquin and Rocephin. Pulmonary service is consulted 7. History of insulin-dependent diabetes mellitus 8. History of essential hypertension 9. History of hyperlipidemia. Maintained on statin 10. History of stroke with suppressive aphasia 11. History of morbid obesity 12. History of urinary retention and difficulty with Clinton insertion. per urology servicesFoley catheter has been removed patient advised follow-up in one month with urology services for cystoscopy 13. Dementia. Maintained on Aricept and Namenda 14. Diarrhea will check stools for C. diff. 15. Nurse reporting that patient is making statements about being depressed, his is also concerned in that regard, at this time will restart patient on Wellbutrin SR 150 mg by mouth once daily DVT prophylaxis SCDs due to subtherapeutic INR. GI prophylaxis Protonix Urology, nephrology and pulmonary services are following Patient maintained on vancomycin and meropenem repeat blood cultures ordered
[2020-03-29] MEDS: TAMSULOSIN 0.4 MG CAP.ER.24H PO SCH (20:27)
[2020-03-29] MEDS: DONEPEZIL 10 MG TAB PO SCH (20:29)
[2020-03-29 20:30] LABS: Glucose,Whole Blood 230 mg/dL (75-99)
--- NOTE | 2020-03-29 22:27 | PN ---
PROGRESS NOTE DATE OF SERVICE: 03/29/2020 REASON FOR FOLLOWUP: 1. MRSA bacteremia. 2. Proteus ESBL urinary tract infection. INTERVAL HISTORY: Patient is currently afebrile. The patient is breathing comfortably. The patient denies having any chest pain or shortness of breath or cough. No nausea, vomiting, abdominal pain or diarrhea. PHYSICAL EXAMINATION: Blood pressure 102/35, pulse 61, temperature is 97.7. He is 95% on room air. General description: The patient is an elderly male up in the chair in no distress. Respiratory system: Unlabored breathing, decreased breath sounds at the bases. No wheeze. HEART: S1, S2. Regular rate and rhythm. ABDOMEN: Soft, no tenderness. Legs are currently wrapped. No obvious drainage on the dressing. LABS: Hemoglobin is 9.8, white count 11.0, BUN of 85, creatinine is 1.46. DIAGNOSTIC IMPRESSION AND PLAN: 1. Patient with Proteus mirabilis ESBL bacteremia urinary tract infection, adequately treated. Repeat urine is negative off therapy. 2. Patient with MRSA bacteremia source is likely skin and soft tissue. Repeat blood culture negative. Antibiotic adjusted to daptomycin in view of worsening of his kidney function with vancomycin for another week and monitor clinical course closely. MMODL / IJN: [id number] /
[2020-03-30] MEDS: SODIUM CHLORIDE 0.9% 1,000 ML IV SCH ×2 (01:45→20:31)
[2020-03-30 06:17] LABS: Glucose,Whole Blood 140 mg/dL (75-99)
[2020-03-30] MEDS: SODIUM CHLORIDE 0.9% 250 ML IV SCH ×2 (06:59→11:42)
[2020-03-30] MEDS: METOPROLOL SUCCINATE (ER) 50 MG TAB.ER.24H PO SCH (07:00)
[2020-03-30] MEDS: PANTOPRAZOLE 40 MG TABLET PO SCH (07:00)
[2020-03-30] MEDS: FERROUS SULFATE 325 MG TAB PO SCH (07:00)
[2020-03-30] MEDS: MAGNESIUM OXIDE 400 MG TAB PO SCH (07:00)
[2020-03-30] MEDS: CHOLECALCIFEROL 1,000 UNIT TAB PO SCH (07:02)
[2020-03-30] MEDS: SYMBICORT 160-4.5 MCG INHALER INHALATION SCH ×2 (08:31→20:23)
[2020-03-30] MEDS: ALBUMIN HUMAN 25% 50 ML in EMPTY BAG 1 BAG IVPB SCH ×2 (08:43→09:48)
[2020-03-30] MEDS: buPROPion SR 150 MG TABLET.ER PO SCH (08:45)
[2020-03-30] MEDS: FLUCONAZOLE 100 MG TAB PO SCH (08:45)
[2020-03-30] MEDS: MEMANTINE 5 MG TAB PO SCH ×2 (08:45→20:29)
[2020-03-30] MEDS: metroNIDAZOLE 500 MG TAB PO SCH ×3 (08:45→20:30)
[2020-03-30] MEDS: HYDROCORTISONE 10 MG TAB PO SCH ×2 (08:45→20:33)
[2020-03-30] MEDS: FUROSEMIDE 10 MG/ML 4 ML VIAL IV SCH (08:45)
[2020-03-30 10:50] LABS: Anisocytosis Slight; Basophils % (A) 0 %; Eosinophils # (A) 0.1 k/uL (0-0.7); Eosinophils % (A) 1 %; HCT 27.5 % (39.0-53.0); HGB 8.6 gm/dL (13.0-17.5); Hypochromasia Marked; Lymphocytes # (A) 0.6 k/uL (1.0-4.8); Lymphocytes % (A) 7 %; MCHC 31.4 g/dL (31.0-37.0); Macrocytosis Moderate; Monocytes # (A) 0.5 k/uL (0-1.0); Monocytes % (A) 5 %; Neutrophils # (A) 7.7 k/uL (1.3-7.7); Neutrophils % (A) 86 %; Platelet Count 165 k/uL (150-450); Poikilocytosis Moderate; RBC 2.61 m/uL (4.30-5.90); RDW 17.4 % (11.5-15.5)
[2020-03-30 11:09] LABS: INR 3.5 (<1.2)
[2020-03-30 11:10] LABS: Albumin 2.6 g/dL (3.5-5.0); Calcium 8.9 mg/dL (8.4-10.2); Potassium 5.4 mmol/L (3.5-5.1); Total Bilirubin 0.8 mg/dL (0.2-1.3); Total Protein 5.4 g/dL (6.3-8.2)
[2020-03-30] MEDS: ALBUTEROL HFA INHALER INHALATION PRN (11:28)
[2020-03-30 11:33] LABS: Glucose,Whole Blood 133 mg/dL (75-99)
[2020-03-30] MEDS: CLOTRIMAZOLE/BETAMETH 1-0.05% CREAM 45 GM TUBE TOPICAL SCH ×2 (11:44→20:30)
--- NOTE | 2020-03-30 11:48 | P.PN ---
Subjective Progress Note Date: 03/30/20 Te Brady is a 74-year-old male patient who presented to the ER from rehab with complaints of increased O fungal rash in the groin eroding foreskin secondary to catheter. Patient also had acute kidney injury and elevated INR. Patient's past medical history of atrial fibrillation which she is maintained on Coumadin, heart failure, COPD, dementia, hypertension, myocardial infarction, osteoarthritis with sleep apnea in which he uses home CPAP machine, pacemaker, anxiety and heart valve replacement. Patient's creatinine upon admission 3.07 and bun 77 potassium also elevated at 56. INR greater than 10. UA positive for the same Estrace. Chest x-ray completed showing T over the left lower lung r egion correlate for atelectasis or pneumonia. At this time patient has been started on Rocephin and Levaquin for IV antibiotics. Urology services have been consulted. Nephrology service is consulted for acute kidney injury. Potassium lowering cocktail given per nephrology. Dr. zavala and has been consulted for pulmonary due to possible pneumonia. Wound and blood cultures ordered. at this time patient denies chest pain or shortness of breath. Patient denies nausea vomiting or diarrhea. On 03/19/2020 patient was seen and examined on the medical floor he is alert and oriented 3 in no apparent distress, he is complaining of diarrhea with stool incontinence, otherwise he denies any complaints there is no fever or chills no headache or dizziness, no chest pain no shortness of breath no cough no nausea or vomiting no abdominal pain no blood in the stools no burning with urination no frequency or urgency and no hematuria 03/20/2020 patient was seen and examined on the medical floor he is alert and oriented 3 in no apparent distress there is no fever or chills no headache or d izziness no chest pain no shortness of breath no cough no nausea or vomiting no abdominal pain no diarrhea no blood in the stools no burning with urination no frequency or urgency and no hematuria. Clinton catheter has been removed and patient is able to urinate. INR is still elevated patient will be getting vitamin K 2.5 mg by mouth 1 time today on 03/21/2020 patient is alert and oriented 3currently sitting up in chair. INR today 3.5. patient maintained on meropenem and vancomycin for IV an tibiotics. At that time Clinton catheter has been removed to patient voiding independently will follow-up outpatient with urology for possible cystoscopy. At this time patient denies chest pain or shortness of breath. Patient denies nausea vomiting or diarrhea. Patient denies any urinary burning or frequency On 03/22/2020 patient was seen and examined on the medical floor he is alert and oriented 3 in no distress, he had the midline placed today and antibiotic were resumed, white blood count is elevated at 13.5, there is no fever or chills no headache or dizziness no chest pain no shortness of breath no cough no nausea or vomiting no abdominal pain no diarrhea and no urinary symptoms. On 03/23/2020 patient was seen and examined on the medical floor he is alert and oriented 3 in no apparent distress there is no fever or chills no headache or dizziness no chest pain no shortness of breath no cough no nausea or vomiting no abdominal pain no diarrhea and no urinary symptoms white blood count remains elevated, patient was resumed on IV antibiotic via midline will continue to monitor during this weekend. On 03/24/2020 patient was seen and examined on the medical floor he is alert and oriented in no apparent distress he is sitting up in chair he denies any complaints at this time there is no fever or chills no headache or dizziness no chest pain no shortness of breath no palpitation no cough no nausea or vomiting no abdominal pain no diarrhea no blood in the stools no burning with urination no frequency or urgency and no hematuria. On 03/25/2020 patient was seen and examined on the medical floor he is alert and oriented in no distress he denies any symptoms at this time, he is sitting up in a chair eating his meal, there is no fever or chills no headache or dizziness no chest pain no shortness of breath no cough no nausea or vomiting no abdominal pain no diarrhea no blood in the stools no burning with urination no frequency or urgency and no hematuria. Infectious disease recommendation reviewed patient has a midline [facility]. on 03/26/2020 patient was seen and examined on the medical floor he is alert and oriented 3 in no distress he is complaining of generalized weakness otherwise no specific complaints there is no fever or chills no headache or dizziness no chest pain no shortness of breath no cough no nausea or vomiting no abdominal pain no diarrhea and no urinary symptoms, he remains on IV antibiotic white blood count is still elevated . Patient has a midline in the right arm, he will need to [facility], he is urinating well without Clinton catheter. On 03/27/2020 patient was seen and examined on the medical floor he is alert and oriented 3 in no distress there is no fever or chills no headache or dizziness no chest pain no shortness of breath no cough no nausea or vomiting no abdominal pain no diarrhea no blood in the stools no burning with urination no frequency or urgency and no hematuria is still complaining of generalized weakness On 03/28/2020 patient is alert and oriented 3. Discussed case with Dr. Walt Aviles and continue daptomycin recommending keeping patient 24 more hours to watch kidney function. Likely discharge to [facility] tomorrow. Patient denies chest pain or shortness of breath. Patient denies nausea vomiting or diarrhea. Patient denies any urinary burning or frequency. Did discuss case also with nephrology services recommending lasix twice a day upon discharge On 03/29/2020 patient was seen and examined on the medical floor he is alert and oriented 3 in no apparent distress there is no fever or chills no headache or dizziness no chest pain no shortness of breath no cough no nausea or vomiting no abdominal pain no diarrhea no blood in the stools no burning with urination no frequency or urgency and no hematuria. Kidney function is slightly worse today. At this time patient is stable, awaiting clearance from infectious disease and nephrology, and the recommendation for discharge antibiotics On 03/30/2020 patient had low temp all-night. Rectal temps were obtained and patient was placed on bear hugger. Patient is alert and oriented. At this time critical care services have been consulted. Chest x-ray urine culture and blood cultures ordered. Did discuss case with infectious disease updated outpatient physician. Blood pressure and heart rate have remained stable. Lactic acid was checked in stable at 1.0. Kidney function slightly worse today. Continue to monitor patient very closely critical care infectious disease and nephrology services are following. Objective - Vital Signs Vital signs: Vital Signs Temp 95.1 F L 03/30/20 05:16 Pulse 60 03/30/20 04:00 Resp 18 03/30/20 04:00 BP 109/58 03/30/20 04:00 Pulse Ox 95 03/30/20 04:00 Intake & Output 03/29/20 03/30/20 03/30/20 18:59 06:59 18:59 Intake Total 840 120 Output Total 500 Balance 340 120 Weight 170 kg Intake: Oral 840 120 Output: Urine 500 Other: Voiding Method Urinal Urinal # Voids 0 # Bowel Movements 1 - Exam Head normocephalic and atraumatic Neck supple no JVD no goiter Lungs clear to auscultation bilaterally no wheezing or crackles Heart irregular rate. known atrial fibrillation Abdomen is soft nontender nondistended positive bowel sounds no hepatosplenomegaly Extremities no edema no cyanosis or clubbing Neuro alert and orientated to 2. Dementia Drainage noted to penile area around catheter. Erosion to groin area. - Labs CBC & Chem 7: 03/30/20 09:12 03/30/20 09:12 Labs: Abnormal Lab Results - Last 24 Hours (Table) 03/29/20 03/29/20 03/29/20 Range/Units 08:13 12:40 16:49 WBC 11.0 H (3.8-10.6) k/uL RBC 2.76 L (4.30-5.90) m/uL Hgb 9.0 L (13.0-17.5) gm/dL Hct 29.4 L (39.0-53.0) % MCV 106.6 H (80.0-100.0) fL MCHC 30.7 L (31.0-37.0) g/dL RDW 17.4 H (11.5-15.5) % Neutrophils # 8.8 H (1.3-7.7) k/uL Lymphocytes # (1.0-4.8) k/uL Macrocytosis Marked A PT (9.0-12.0) sec INR (<1.2) Sodium (137-145) mmol/L Potassium (3.5-5.1) mmol/L BUN (9-20) mg/dL Creatinine (0.66-1.25) mg/dL Glucose (74-99) mg/dL POC Glucose (mg/dL) 148 H 162 H (75-99) mg/dL Alkaline Phosphatase (38-126) U/L Total Protein (6.3-8.2) g/dL Albumin (3.5-5.0) g/dL 03/29/20 03/30/20 03/30/20 Range/Units 20:28 06:15 09:12 WBC (3.8-10.6) k/uL RBC (4.30-5.90) m/uL Hgb (13.0-17.5) gm/dL Hct (39.0-53.0) % MCV (80.0-100.0) fL MCHC (31.0-37.0) g/dL RDW (11.5-15.5) % Neutrophils # (1.3-7.7) k/uL Lymphocytes # (1.0-4.8) k/uL Macrocytosis PT 34.0 H (9.0-12.0) sec INR 3.5 H (<1.2) Sodium (137-145) mmol/L Potassium (3.5-5.1) mmol/L BUN (9-20) mg/dL Creatinine (0.66-1.25) mg/dL Glucose (74-99) mg/dL POC Glucose (mg/dL) 230 H 140 H (75-99) mg/dL Alkaline Phosphatase (38-126) U/L Total Protein (6.3-8.2) g/dL Albumin (3.5-5.0) g/dL 03/30/20 03/30/20 03/30/20 Range/Units 09:12 09:12 11:31 WBC (3.8-10.6) k/uL RBC 2.61 L (4.30-5.90) m/uL Hgb 8.6 L (13.0-17.5) gm/dL Hct 27.5 L (39.0-53.0) % MCV 105.0 H (80.0-100.0) fL MCHC (31.0-37.0) g/dL RDW 17.4 H (11.5-15.5) % Neutrophils # (1.3-7.7) k/uL Lymphocytes # 0.6 L (1.0-4.8) k/uL Macrocytosis PT (9.0-12.0) sec INR (<1.2) Sodium 136 L (137-145) mmol/L Potassium 5.4 H (3.5-5.1) mmol/L BUN 90 H (9-20) mg/dL Creatinine 1.67 H (0.66-1.25) mg/dL Glucose 101 H (74-99) mg/dL POC Glucose (mg/dL) 133 H (75-99) mg/dL Alkaline Phosphatase 140 H (38-126) U/L Total Protein 5.4 L (6.3-8.2) g/dL Albumin 2.6 L (3.5-5.0) g/dL Assessment and Plan Assessment: 1. Infection around catheter site with penile erosion. wound culture showing MRSA Enterobacter cloacae. 2. MRSA bacteremia repeat blood cultures ordered, 3. Gram-negative urinary tract infection related to ESBL Proteus mirabilis. 4. Acute kidney injury with elevated potassium. Creatinine elevated at 3.06 upon admission. Continue normal saline at 50. Nephrology services are following 5. Supratherapeutic INR. Hold Coumadin and recheck. patient did receive vitamin K. Current INR 3.5 6. Possible pneumonia. Patient started on Levaquin and Rocephin. Pulmonary service is consulted 7. History of insulin-dependent diabetes mellitus 8. History of essential hypertension 9. History of hyperlipidemia. Maintained on statin 10. History of stroke with suppressive aphasia 11. History of morbid obesity 12. History of urinary retention and difficulty with Clinton insertion. per urology servicesFoley catheter has been removed patient advised follow-up in one month with urology services for cystoscopy 13. Dementia. Maintained on Aricept and Namenda 14. Diarrhea will check stools for C. diff. 15. Nurse reporting that patient is making statements about being depressed, his is also concerned in that regard, at this time will restart patient on Wellbutrin SR 150 mg by mouth once daily 16. Low temp. Patient has been on Shahnaz hugger. Discussed case with infectious disease urine culture blood culture and chest x-ray ordered. Critical care service also consulted DVT prophylaxis SCDs due to subtherapeutic INR. GI prophylaxis Protonix Infectious disease, nephrology and critical care service is consulted patient remains on daptomycin and Flagyl repeat blood cultures and urine and chest x-ray ordered continue Shahnaz hugger for low temp
[2020-03-30] MEDS: MIDODRINE 5 MG TAB PO SCH (11:54)
--- NOTE | 2020-03-30 12:31 | XR ---
EXAMINATION TYPE: XR chest 1V portable DATE OF EXAM: 03/30/2020 Comparison: 03/17/2020 Clinical History: 74-year-old male hypothermia, rule out pneumonia Findings: Left anterior chest wall pacemaker generator with right ventricular lead. Median sternotomy wires are present. Heart mildly enlarged. Diffuse interstitial density. Left basilar underpenetrated and not w ell assessed. No obvious sizable effusion. Impression: Cardiomegaly and interstitial change, correlate to exclude pulmonary vascular congestion. Left base u nderpenetrated and not well assessed.
--- NOTE | 2020-03-30 12:34 | PN ---
PROGRESS NOTE Patient is seen for followup for acute kidney injury and hypervolemia. Renal function had improved since admission with serum creatinine down to about 1.2-1.3 mg/dL from 3.0 on initial admission. However, patient developed significant volume overload and has been maintained on IV Lasix. Overnight, patient became hypotensive and has been hypothermic requiring a Bear Hugger. His serum creatinine has increased to 1.67. The patient denies any cough. He has also had a temp as low as 91.9 degrees Fahrenheit. PHYSICAL EXAMINATION: On examination today, blood pressure was 109/58, heart rate 60 per minute, he is afebrile. Examination of the heart S1, S2. Examination of lungs, decreased breath sounds at bases. Distant heart sounds and lung sounds. Abdomen is soft. Morbidly obese. Examination of lower extremities shows edema bilaterally. Both extremities are currently wrapped. LAB: Show sodium of 136, potassium 5.4, chloride 105. BUN 90, serum creatinine 1.67, hemoglobin 8.6 g/dL. ASSESSMENT: 1. Acute kidney injury associated with hypotension with worsening renal function over the last few days as blood pressure had dropped into the 80s. Patient is maintained on midodrine. He is also being diuresed secondary to severe volume overload. Urine output is maintained. The patient is not on any nephrotoxic medications. 2. Sepsis with new hypothermia and low blood pressure, being followed by Infectious Disease. The patient had MRSA bacteremia from a penile wound which also grew Enterococcus Enterobacter cloacae along with MRSA. Repeat blood cultures have been negative as of 03/20/2020 and blood cultures have been redrawn last night. 3. Urinary tract infection. Urine culture grew Proteus mirabilis. Status post antibiotics. 4. Volume overload. It had improved significantly with the IV Lasix. However, the patient is now receiving IV fluids due to hypotension. He is maintained on midodrine. He is also on Cortef. 5. Adrenal insufficiency diagnosed this admission maintained on Cortef. PLAN: Hold 2nd dose of Lasix today. Repeat blood cultures. Continue with midodrine. If blood pressure continues to be low, patient will need to start IV pressors. MMODL / IJN: [id number] /
--- NOTE | 2020-03-30 15:42 | P.PN ---
Subjective Progress Note Date: 03/30/20 Principal diagnosis: Sepsis related to penile erosion and secondary cellulitis 72-year-old male patient who was sent over to the hospital from an extended care facility due to concern of a infection of his penis/scrotum. [facility] is a [facility] resident with a rash in his groin area eroding into his foreskin. The patient was in the hospital last month for a fall at home and during the hospital stay had developed urinary retention. He was seen by urology. He is known to have bladder cancer. The patient has a chronically indwelling Clinton catheter which was placed a week ago. He was started on Flomax to be followed up by urology on outpatient basis. He is not a good historian due to his underlying dementia. At a time of arrival, the patient was afebrile and had a blood pressure with a systolic being in the mid 90s. His creatinine was at 3.07 at a time of admission. He was given IV fluids with normal state rate of 50 mL an hour. He was started on IV antibiotics. Cultures still pending for now. Meanwhile, he was also found to be toxic and supratherapeutic on his INR with a level being more than 10 and the patient was given vitamin K. Hemoglobin was stable at 9.9. In regards to his potassium level of 5.7, he was given a dose of Kayexalate. The patient is known to have multiple medical problems and comorbidities. He had COPD, dementia, hypertension, obstructive sleep apnea, chronic atrial fibrillation, and he has a pacemaker in place. The pacemaker was placed several years back for a symptomatic bradycardia and atrial fibrillation. The patient is known to have a prosthetic aortic valve and he has undergone previous aortic valve replacement. On 03/19/2020 patient seen in follow-up on selective care unit. He is awake and alert, in no acute distress, he is a poor historian, but appears to be breathing comfortably, denies any distress. Room air pulse ox 95%, his been afebrile, hemodynamically patient has been stable. He is on the daptomycin, cefepime and clindamycin, his groin wound culture showed gram-negative bacilli, presumptive M RSA, blood culture showed MSSA, and urine culture positive for gram-negative bacilli. He denies any dyspnea, no cough or congestion no complaints of chest pain. He is breathing comfortably. He's had no fever or chills, he was seen by urology services, his Clinton remains about, it's unclear how much he is voiding, it appears that the Clinton was taken out this morning. Patient is being followed by wound care surgery for nonhealing ulcerations on the left calcaneus and abdominal folds. Today's labs have been reviewed, showing white blood cell count of 8.9, hemoglobin of 10.3, his INR today is 6.1, sodium is 136, potassium is 5.7, there are 3 large lites were within normal limits, renal profile is slightly improved, with BUN of 91, creatinine of 2.57 On 03/20/2020 patient seen in follow-up on selective care unit, he is currently up in the recliner, in no acute distress, denies any shortness of breath, room air pulse ox is 96%, afebrile, hemodynamically stable, his labs today have been reviewed, white blood cell count is 7.4, hemoglobin is 9.7, INR is 6.3, with no evidence of bleeding, potassium is 5.5, chloride is 109, renal profile is improving, BUN is down to 92, and creatinine is 1.94. Current antibiotic coverage is in the form of cefepime and vancomycin, his wound cultures from the groin came back positive for Enterobacter and methicillin-resistant staph aureus, blood culture was positive for MRSA, and urine culture came back positive for ESBL Proteus mirabilis, and antibiotic coverage will be switched over to meropenem with vancomycin. Patient has no specific complaints, no nausea vomiting or diarrhea, he is voiding. On 03/26/2020 patient seen in follow-up on selective care unit. He is resting comfortably been covered he is on 2 L of oxygen and the pulse ox of 94-95%, hemodynamically has been stable, has had no fever or chills. Denies any worsening dyspnea, breathing seems to be comfortable, his COVID 19 PCR came back negative, his penile culture came back positive for multiple anaerobic gram- negative bacilli, his groin culture came back positive for MRSA, and Enterobacter, and blood culture was positive for MRSA and urine culture was positive for Proteus mirabilis, follow blood cultures have been negative 2. I'll signs have been stable, ID service is following, current antibiotic coverage includes Flagyl, vancomycin and meropenem On 03/30/2020 patient seen in follow-up on selective care unit, we were asked to see the patient again related to hypothermia temperature of 91.9 degrees Fahrenheit, warming blanket was applied. Patient has had some low blood pressures, yesterday with a blood pressure of 85/38, patient was started on gentle IV hydration, 0.9 normal saline at a rate of 50 ML per hour, blood pressures have improved however he still remains hypothermic, blood cultures were sent, today's chest x-ray has been reviewed although patient is not having much in the way of pulmonary symptoms, no shortness of breath, no cough or zhanna estion or phlegm production. Chest x-ray shows cardiomegaly and interstitial changes, possibly related to pulmonary vessel congestion, no complaints of chest pain, lactic acid 1.0. Patient has been on antibiotics, currently on daptomycin and Diflucan, ID service has been following, for ALLERGY has been following, patient has been on oral Cortef 10 mg twice daily, and midodrine, blood blood cell count is 13.7, hemoglobin is 9.3, INR is 3.8, electrolytes were within normal limits, renal profile is relatively stable with BUN of 77 and creatinine of 1.37. Coronavirus PCR was negative, repeat urinalysis was done on 03/25/2020 showing no evidence of urinary tract infection. His penile wound culture showed anaerobic gram-negative organisms of 3 different types, final cultures pending, groin wound culture showed evidence of MRSA and Enterobacter, and patient had evidence of MRSA on his blood cultures on 03/17/2020, and addition to Proteus mirabilis, most recent cultures on 03/20/2020 showed no growth. Clinically patient appears to be comfortable, he is slightly drowsy but easily wakes up and answer questions, mildly confused however staff states this is his baseline. Denies any specific complaints. No nausea, no vomiting, no diarrhea, no abdominal pain. Objective - Vital Signs Vital signs: Vital Signs Temp 94.2 F L 03/30/20 12:00 Pulse 65 03/30/20 12:00 Resp 18 03/30/20 12:00 BP 84/40 03/30/20 12:00 Pulse Ox 94 L 03/30/20 12:00 Intake & Output 03/29/20 03/30/20 03/30/20 18:59 06:59 18:59 Intake Total 840 720 Output Total 500 Balance 340 720 Weight 170 kg Intake: Oral 840 720 Output: Urine 500 Other: Voiding Method Urinal Urinal Bedpan Urinal # Voids 0 # Bowel Movements 1 1 - Exam GENERAL EXAM: Drowsy but easily arousable, very pleasant obese 74-year-old white male, 2 L of oxygen and the pulse ox 94%, with pulse ox of 95% currently under warming blanket for hypothermia comfortable in no apparent distress. HEAD: Normocephalic/atraumatic. EYES: Normal reaction of pupils, equal size. Conjunctiva pink, sclera white. NOSE: Clear with pink turbinates. THROAT: No erythema or exudates. NECK: No masses, no JVD, no thyroid enlargement, no adenopathy. CHEST: No chest wall deformity. Symmetrical expansion. LUNGS: Equal air entry with no crackles, wheeze, rhonchi or dullness. CVS: Regular rate and rhythm, normal S1 and S2, no gallops, no murmurs, no rubs ABDOMEN: Soft, nontender. No hepatosplenomegaly, normal bowel sounds, no guarding or rigidity. EXTREMITIES: No clubbing, no edema, no cyanosis, 2+ pulses and upper and lower extremities. MUSCULOSKELETAL: Muscle strength and tone normal. SPINE: No scoliosis or deformity SKIN: Bilateral abdominal ulcerations, and maceration with excoriation, left medial calcaneal ulceration CENTRAL NERVOUS SYSTEM: Drowsy but arousable No focal deficits, tone is normal in all 4 extremities. - Labs CBC & Chem 7: 03/30/20 09:12 03/30/20 09:12 Labs: Abnormal Lab Results - Last 24 Hours (Table) 03/29/20 03/29/20 03/30/20 Range/Units 16:49 20:28 06:15 RBC (4.30-5.90) m/uL Hgb (13.0-17.5) gm/dL Hct (39.0-53.0) % MCV (80.0-100.0) fL RDW (11.5-15.5) % Lymphocytes # (1.0-4.8) k/uL PT (9.0-12.0) sec INR (<1.2) Sodium (137-145) mmol/L Potassium (3.5-5.1) mmol/L BUN (9-20) mg/dL Creatinine (0.66-1.25) mg/dL Glucose (74-99) mg/dL POC Glucose (mg/dL) 162 H 230 H 140 H (75-99) mg/dL Alkaline Phosphatase (38-126) U/L Total Protein (6.3-8.2) g/dL Albumin (3.5-5.0) g/dL 03/30/20 03/30/20 03/30/20 Range/Units 09:12 09:12 09:12 RBC 2.61 L (4.30-5.90) m/uL Hgb 8.6 L (13.0-17.5) gm/dL Hct 27.5 L (39.0-53.0) % MCV 105.0 H (80.0-100.0) fL RDW 17.4 H (11.5-15.5) % Lymphocytes # 0.6 L (1.0-4.8) k/uL PT 34.0 H (9.0-12.0) sec INR 3.5 H (<1.2) Sodium 136 L (137-145) mmol/L Potassium 5.4 H (3.5-5.1) mmol/L BUN 90 H (9-20) mg/dL Creatinine 1.67 H (0.66-1.25) mg/dL Glucose 101 H (74-99) mg/dL POC Glucose (mg/dL) (75-99) mg/dL Alkaline Phosphatase 140 H (38-126) U/L Total Protein 5.4 L (6.3-8.2) g/dL Albumin 2.6 L (3.5-5.0) g/dL 03/30/20 Range/Units 11:31 RBC (4.30-5.90) m/uL Hgb (13.0-17.5) gm/dL Hct (39.0-53.0) % MCV (80.0-100.0) fL RDW (11.5-15.5) % Lymphocytes # (1.0-4.8) k/uL PT (9.0-12.0) sec INR (<1.2) Sodium (137-145) mmol/L Potassium (3.5-5.1) mmol/L BUN (9-20) mg/dL Creatinine (0.66-1.25) mg/dL Glucose (74-99) mg/dL POC Glucose (mg/dL) 133 H (75-99) mg/dL Alkaline Phosphatase (38-126) U/L Total Protein (6.3-8.2) g/dL Albumin (3.5-5.0) g/dL Assessment and Plan Plan: Assessment: #1. Hypothermia, possibly related to sepsis. Patient has been covered with a valgus, and he sets of blood cultures have been sent, lactic acid is within normal limits, we'll send a serum cortisol level, and a TSH level #2. Penile erosion secondary to catheter with suspected infection with secondary cellulitis, questionable early necrotizing fasciitis of the scrotal and the groin area. Wound cultures showed MRSA, Enterobacter cloacae #3. MRSA bacteremia #4. gram-negative urinary tract infection, related to ESBL Proteus mirabilis #5. acute kidney injury with secondary hyperkalemia, improving #6. nonhealing wounds under the abdominal folds, and left calcaneal area #7. obstructive uropathy with a indwelling Clinton catheter in place #8. advanced dementia with impairment in cognitive functions #9. chronic atrial fibrillation with a supratherapeutic PT/INR while on Coumadin #10. history of aortic valve replacement #11. supratherapeutic PT/INR without evidence of an acute bleed #12. hypertension #13. obstructive sleep apnea. #14. history of pacemaker insertion for symptomatically bradycardia #15. COPD currently on room air oxygen with a pulse ox of 94% #16. chronic anemia #17. hyperlipidemia #18. history of previous CVA with expressive aphasia #19. BPH Plan: Patient has been seen and evaluated with Dr. Harrison, chest x-ray reviewed, showing possible mild pulmonary vessel congestion, no clear evidence of pneumonia, patient denies any pulmonary symptoms, he still hypothermic, he is on a warming blanket, we'll send a serum cortisol level, send a TSH level, continue gentle IV hydration, antibiotics per ID service recommendations. Patient can continue to be monitored on selective care, with current medical treatment. I performed a history & physical examination of the patient and discussed their management with my nurse practitioner, Gabbi Graves. I reviewed the nurse practitioner's note and agree with the documented findings and plan of care. Lung sounds are positive for clear breath sound. The findings and the impression was discussed with the patient. I attest to the documentation by the nurse practitioner. Time with Patient: Less than 30
[2020-03-30 16:50] LABS: Glucose,Whole Blood 131 mg/dL (75-99)
[2020-03-30] MEDS ORDERED: WARFARIN 1 MG TAB PO ONE (18:00)
[2020-03-30 20:09] LABS: Glucose,Whole Blood 170 mg/dL (75-99)
[2020-03-30] MEDS: TAMSULOSIN 0.4 MG CAP.ER.24H PO SCH (20:30)
[2020-03-30] MEDS: DONEPEZIL 10 MG TAB PO SCH (20:30)
--- NOTE | 2020-03-30 22:28 | PN ---
PROGRESS NOTE DATE OF SERVICE: 03/30/2020 REASON FOR FOLLOWUP: MRSA bacteremia. INTERVAL HISTORY: Patient was noticed last night to be hypothermic requiring a warming blanket, but now specifically the patient denies having any significant symptoms except some weakness, but no chest pain, shortness of breath or cough. No abdominal pain, no diarrhea. PHYSICAL EXAMINATION: Blood pressure 103/54 with a pulse of 60, temperature 94.1, 95% on 2 L nasal cannula. General description is an elderly male up in the chair in no distress. Respiratory system: Unlabored breathing, clear to auscultation anteriorly. Heart S1, S2. Regular rate and rhythm. Abdomen soft, no tenderness. Legs are currently wrapped up. No obvious drainage on the dressing. LABS: Hemoglobin 8.6, white count 9.0, BUN of 90, creatinine 1.67. DIAGNOSTIC IMPRESSION AND PLAN: 1. Patient with Proteus mirabilis UTI, adequately treated. Repeat urine is negative. 2. Patient with MRSA bacteremia, soft tissue source in this patient currently covered with daptomycin and Flagyl to continue. Repeat cultures have been ordered. White count has normalized. Will monitor patient closely. Continue supportive care. MMODL / IJN: [id number] /
[2020-03-31] MEDS: MIDODRINE 5 MG TAB PO SCH ×2 (05:57→16:21)
[2020-03-31] MEDS: CHOLECALCIFEROL 1,000 UNIT TAB PO SCH (05:57)
[2020-03-31] MEDS: PANTOPRAZOLE 40 MG TABLET PO SCH (05:57)
[2020-03-31] MEDS: MAGNESIUM OXIDE 400 MG TAB PO SCH (05:57)
[2020-03-31] MEDS: FERROUS SULFATE 325 MG TAB PO SCH (05:57)
[2020-03-31] MEDS: METOPROLOL SUCCINATE (ER) 50 MG TAB.ER.24H PO SCH (05:57)
[2020-03-31 06:18] LABS: Glucose,Whole Blood 138 mg/dL (75-99)
[2020-03-31 08:20] LABS: Anisocytosis Slight; Basophils % (A) 0 %; Eosinophils # (A) 0.2 k/uL (0-0.7); Eosinophils % (A) 2 %; HCT 26.7 % (39.0-53.0); HGB 8.2 gm/dL (13.0-17.5); Hypochromasia Marked; Lymphocytes % (A) 10 %; MCH 32.3 pg (25.0-35.0); MCHC 30.8 g/dL (31.0-37.0); MCV 104.8 fL (80.0-100.0); Macrocytosis Moderate; Mean Platelet Volume 8.3; Monocytes # (A) 0.6 k/uL (0-1.0); Monocytes % (A) 6 %; Neutrophils # (A) 8.1 k/uL (1.3-7.7); Neutrophils % (A) 81 %; Platelet Count 137 k/uL (150-450); Poikilocytosis Moderate; RBC 2.54 m/uL (4.30-5.90); RDW 18.1 % (11.5-15.5); WBC 10.1 k/uL (3.8-10.6)
[2020-03-31 08:34] LABS: Prothrombin Time 28.8 sec (9.0-12.0)
[2020-03-31 08:36] LABS: Albumin 2.6 g/dL (3.5-5.0); Calcium 8.7 mg/dL (8.4-10.2); Potassium 4.9 mmol/L (3.5-5.1); Total Bilirubin 0.9 mg/dL (0.2-1.3); Total Protein 5.3 g/dL (6.3-8.2)
[2020-03-31] MEDS: SYMBICORT 160-4.5 MCG INHALER INHALATION SCH ×2 (09:03→20:05)
[2020-03-31] MEDS: ALBUTEROL HFA INHALER INHALATION PRN (09:03)
--- NOTE | 2020-03-31 10:26 | P.PN ---
Subjective Progress Note Date: 03/31/20 Principal diagnosis: This 74-year-old old male, obese, resting of the extended care facility seen in consultation because of acute kidney injury. He has MRSA bacteremia, Proteus m irabilis UTI, history of atrial fibrillation, hypotension with blood pressure running in the 80s. 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 Currently he is awake and alert warm to touch Denies any fever chills cough shortness of breath nausea vomiting diarrhea His creatinine is continuing to worsen. It has gone up from 1.05-2.3 as of this morning Objective - Vital Signs Vital signs: Vital Signs Temp 95.6 F L 03/31/20 03:50 Pulse 60 03/31/20 03:50 Resp 19 03/31/20 03:50 BP 98/56 03/31/20 03:50 Pulse Ox 94 L 03/31/20 03:50 Intake & Output 03/30/20 03/31/20 03/31/20 18:59 06:59 18:59 Intake Total 3170 Balance 3170 Weight 127.5 kg Intake: Intake, IV Titration 1000 Amount Albumin Human 25% 50 ml 100 In Empty Bag 1 bag @ 50 mls/hr IVPB Q1H PAU Rx#: [id number] DAPTOmycin 1,000 mg In 50 Sodium Chloride 0.9% 50 ml @ 100 mls/hr IVPB Q24HR PAU Rx#:[id number] Sodium Chloride 0.9% 1, 600 000 ml @ 50 mls/hr IV . Q20H PAU Rx#:[id number] Sodium Chloride 0.9% 250 250 ml @ 250 mls/hr IV .Q1H PAU Rx#:[id number] Oral 2170 Other: Voiding Method Bedpan Bedpan Urinal Urinal # Voids 2 # Bowel Movements 1 1 Examination awake alert oriented comfortable warm to touch HEENT exam no JVP neck is supple no facial asymmetry Lungs are somewhat difficult to examine but no adventitious sounds air entry is less than optimal. Heart sounds are unremarkable although distant. Abdomen soft nontender but obese difficult exam and Extremity exam reveals bilateral Cory wraps with some mild edema Neurologically awake alert but very weak Abdomen soft nontender - Labs CBC & Chem 7: 03/31/20 07:34 03/31/20 07:34 Labs: Abnormal Lab Results - Last 24 Hours (Table) 03/30/20 03/30/20 03/30/20 Range/Units 09:12 09:12 09:12 RBC 2.61 L (4.30-5.90) m/uL Hgb 8.6 L (13.0-17.5) gm/dL Hct 27.5 L (39.0-53.0) % MCV 105.0 H (80.0-100.0) fL MCHC (31.0-37.0) g/dL RDW 17.4 H (11.5-15.5) % Plt Count (150-450) k/uL Neutrophils # (1.3-7.7) k/uL Lymphocytes # 0.6 L (1.0-4.8) k/uL PT 34.0 H (9.0-12.0) sec INR 3.5 H (<1.2) Sodium 136 L (137-145) mmol/L Potassium 5.4 H (3.5-5.1) mmol/L BUN 90 H (9-20) mg/dL Creatinine 1.67 H (0.66-1.25) mg/dL Glucose 101 H (74-99) mg/dL POC Glucose (mg/dL) (75-99) mg/dL Alkaline Phosphatase 140 H (38-126) U/L Total Protein 5.4 L (6.3-8.2) g/dL Albumin 2.6 L (3.5-5.0) g/dL 03/30/20 03/30/20 03/30/20 Range/Units 11:31 16:49 20:07 RBC (4.30-5.90) m/uL Hgb (13.0-17.5) gm/dL Hct (39.0-53.0) % MCV (80.0-100.0) fL MCHC (31.0-37.0) g/dL RDW (11.5-15.5) % Plt Count (150-450) k/uL Neutrophils # (1.3-7.7) k/uL Lymphocytes # (1.0-4.8) k/uL PT (9.0-12.0) sec INR (<1.2) Sodium (137-145) mmol/L Potassium (3.5-5.1) mmol/L BUN (9-20) mg/dL Creatinine (0.66-1.25) mg/dL Glucose (74-99) mg/dL POC Glucose (mg/dL) 133 H 131 H 170 H (75-99) mg/dL Alkaline Phosphatase (38-126) U/L Total Protein (6.3-8.2) g/dL Albumin (3.5-5.0) g/dL 03/31/20 03/31/20 03/31/20 Range/Units 06:16 07:34 07:34 RBC 2.54 L (4.30-5.90) m/uL Hgb 8.2 L (13.0-17.5) gm/dL Hct 26.7 L (39.0-53.0) % MCV 104.8 H (80.0-100.0) fL MCHC 30.8 L (31.0-37.0) g/dL RDW 18.1 H (11.5-15.5) % Plt Count 137 L (150-450) k/uL Neutrophils # 8.1 H (1.3-7.7) k/uL Lymphocytes # (1.0-4.8) k/uL PT 28.8 H (9.0-12.0) sec INR 3.0 H (<1.2) Sodium (137-145) mmol/L Potassium (3.5-5.1) mmol/L BUN (9-20) mg/dL Creatinine (0.66-1.25) mg/dL Glucose (74-99) mg/dL POC Glucose (mg/dL) 138 H (75-99) mg/dL Alkaline Phosphatase (38-126) U/L Total Protein (6.3-8.2) g/dL Albumin (3.5-5.0) g/dL 03/31/20 Range/Units 07:34 RBC (4.30-5.90) m/uL Hgb (13.0-17.5) gm/dL Hct (39.0-53.0) % MCV (80.0-100.0) fL MCHC (31.0-37.0) g/dL RDW (11.5-15.5) % Plt Count (150-450) k/uL Neutrophils # (1.3-7.7) k/uL Lymphocytes # (1.0-4.8) k/uL PT (9.0-12.0) sec INR (<1.2) Sodium 135 L (137-145) mmol/L Potassium (3.5-5.1) mmol/L BUN 100 H (9-20) mg/dL Creatinine 2.30 H (0.66-1.25) mg/dL Glucose (74-99) mg/dL POC Glucose (mg/dL) (75-99) mg/dL Alkaline Phosphatase (38-126) U/L Total Protein 5.3 L (6.3-8.2) g/dL Albumin 2.6 L (3.5-5.0) g/dL Assessment and Plan Assessment: Impression 1. Acute kidney injury worsening creatinine. Etiology is bacteremia and sepsis. Hypotension is making it worse. Creatinine gone up to 2.3 from 1 on 03/24/2020 2. MRSA bacteremia with additional urine tract infection with Proteus mirabilis. 3. History of atrial fibrillation 4. Obesity 5. Known with COPD, obstructive sleep apnea Recommendation 1. IV fluids normal saline 200 mL an hour from 50 mL. 2. Monitor labs closely, urine output and blood pressure 3. He need an echocardiogram to rule out cardiorenal syndrome and poor ejection
[2020-03-31] MEDS: HYDROCORTISONE 10 MG TAB PO SCH ×2 (10:34→22:18)
[2020-03-31] MEDS: metroNIDAZOLE 500 MG TAB PO SCH ×3 (10:35→19:35)
[2020-03-31] MEDS: buPROPion SR 150 MG TABLET.ER PO SCH (10:35)
[2020-03-31] MEDS: MEMANTINE 5 MG TAB PO SCH ×2 (10:35→19:35)
[2020-03-31] MEDS: FLUCONAZOLE 100 MG TAB PO SCH (10:35)
[2020-03-31] MEDS: CLOTRIMAZOLE/BETAMETH 1-0.05% CREAM 45 GM TUBE TOPICAL SCH ×2 (10:41→19:37)
[2020-03-31 11:56] LABS: Glucose,Whole Blood 129 mg/dL (75-99)
--- NOTE | 2020-03-31 13:30 | P.PN ---
Subjective Progress Note Date: 03/31/20 Te Brady is a 74-year-old male patient who presented to the ER from rehab with complaints of increased O fungal rash in the groin eroding foreskin secondary to catheter. Patient also had acute kidney injury and elevated INR. Patient's past medical history of atrial fibrillation which she is maintained on Coumadin, heart failure, COPD, dementia, hypertension, myocardial infarction, osteoarthritis with sleep apnea in which he uses home CPAP machine, pacemaker, anxiety and heart valve replacement. Patient's creatinine upon admission 3.07 and bun 77 potassium also elevated at 56. INR greater than 10. UA positive for the same Estrace. Chest x-ray completed showing T over the left lower lung r egion correlate for atelectasis or pneumonia. At this time patient has been started on Rocephin and Levaquin for IV antibiotics. Urology services have been consulted. Nephrology service is consulted for acute kidney injury. Potassium lowering cocktail given per nephrology. Dr. zavala and has been consulted for pulmonary due to possible pneumonia. Wound and blood cultures ordered. at this time patient denies chest pain or shortness of breath. Patient denies nausea vomiting or diarrhea. On 03/19/2020 patient was seen and examined on the medical floor he is alert and oriented 3 in no apparent distress, he is complaining of diarrhea with stool incontinence, otherwise he denies any complaints there is no fever or chills no headache or dizziness, no chest pain no shortness of breath no cough no nausea or vomiting no abdominal pain no blood in the stools no burning with urination no frequency or urgency and no hematuria 03/20/2020 patient was seen and examined on the medical floor he is alert and oriented 3 in no apparent distress there is no fever or chills no headache or d izziness no chest pain no shortness of breath no cough no nausea or vomiting no abdominal pain no diarrhea no blood in the stools no burning with urination no frequency or urgency and no hematuria. Clinton catheter has been removed and patient is able to urinate. INR is still elevated patient will be getting vitamin K 2.5 mg by mouth 1 time today on 03/21/2020 patient is alert and oriented 3currently sitting up in chair. INR today 3.5. patient maintained on meropenem and vancomycin for IV an tibiotics. At that time Clinton catheter has been removed to patient voiding independently will follow-up outpatient with urology for possible cystoscopy. At this time patient denies chest pain or shortness of breath. Patient denies nausea vomiting or diarrhea. Patient denies any urinary burning or frequency On 03/22/2020 patient was seen and examined on the medical floor he is alert and oriented 3 in no distress, he had the midline placed today and antibiotic were resumed, white blood count is elevated at 13.5, there is no fever or chills no headache or dizziness no chest pain no shortness of breath no cough no nausea or vomiting no abdominal pain no diarrhea and no urinary symptoms. On 03/23/2020 patient was seen and examined on the medical floor he is alert and oriented 3 in no apparent distress there is no fever or chills no headache or dizziness no chest pain no shortness of breath no cough no nausea or vomiting no abdominal pain no diarrhea and no urinary symptoms white blood count remains elevated, patient was resumed on IV antibiotic via midline will continue to monitor during this weekend. On 03/24/2020 patient was seen and examined on the medical floor he is alert and oriented in no apparent distress he is sitting up in chair he denies any complaints at this time there is no fever or chills no headache or dizziness no chest pain no shortness of breath no palpitation no cough no nausea or vomiting no abdominal pain no diarrhea no blood in the stools no burning with urination no frequency or urgency and no hematuria. On 03/25/2020 patient was seen and examined on the medical floor he is alert and oriented in no distress he denies any symptoms at this time, he is sitting up in a chair eating his meal, there is no fever or chills no headache or dizziness no chest pain no shortness of breath no cough no nausea or vomiting no abdominal pain no diarrhea no blood in the stools no burning with urination no frequency or urgency and no hematuria. Infectious disease recommendation reviewed patient has a midline he will need to go to the [facility] on IV antibiotic. on 03/26/2020 patient was seen and examined on the medical floor he is alert and oriented 3 in no distress he is complaining of generalized weakness otherwise no specific complaints there is no fever or chills no headache or dizziness no chest pain no shortness of breath no cough no nausea or vomiting no abdominal pain no diarrhea and no urinary symptoms, he remains on IV antibiotic white blood count is still elevated . Patient has a midline in the right arm, he will need to continue IV antibiotic at the [facility], he is urinating well without Clinton catheter. On 03/27/2020 patient was seen and examined on the medical floor he is alert and oriented 3 in no distress there is no fever or chills no headache or dizziness no chest pain no shortness of breath no cough no nausea or vomiting no abdominal pain no diarrhea no blood in the stools no burning with urination no frequency or urgency and no hematuria is still complaining of generalized weakness On 03/28/2020 patient is alert and oriented 3. Discussed case with Dr. Walt Aviles and continue daptomycin recommending keeping patient 24 more hours to watch kidney function. Likely discharge to [facility] tomorrow. Patient denies chest pain or shortness of breath. Patient denies nausea vomiting or diarrhea. Patient denies any urinary burning or frequency. Did discuss case also with nephrology services recommending lasix twice a day upon discharge On 03/29/2020 patient was seen and examined on the medical floor he is alert and oriented 3 in no apparent distress there is no fever or chills no headache or dizziness no chest pain no shortness of breath no cough no nausea or vomiting no abdominal pain no diarrhea no blood in the stools no burning with urination no frequency or urgency and no hematuria. Kidney function is slightly worse today. At this time patient is stable, awaiting clearance from infectious disease and nephrology, and the recommendation for discharge antibiotics On 03/30/2020 patient had low temp all-night. Rectal temps were obtained and patient was placed on bear hugger. Patient is alert and oriented. At this time critical care services have been consulted. Chest x-ray urine culture and blood cultures ordered. Did discuss case with infectious disease updated outpatient physician. Blood pressure and heart rate have remained stable. Lactic acid was checked in stable at 1.0. Kidney function slightly worse today. Continue to monitor patient very closely critical care infectious disease and nephrology services are following. On 03/31/2020 patient was seen and examined on the medical floor he is alert and oriented 3 in no distress, he is still having episodes of hypothermia, there is no fever or chills no headache or dizziness no chest pain no shortness of breath no cough no nausea or vomiting no abdominal pain no diarrhea and no urinary symptoms. Medication and labs were reviewed, input from multiple consultants reviewed in details. Objective - Vital Signs Vital signs: Vital Signs Temp 95.6 F L 03/31/20 03:50 Pulse 60 03/31/20 03:50 Resp 19 03/31/20 03:50 BP 98/56 03/31/20 03:50 Pulse Ox 94 L 03/31/20 03:50 Intake & Output 03/30/20 03/31/20 03/31/20 18:59 06:59 18:59 Intake Total 3170 Balance 3170 Weight 127.5 kg Intake: Intake, IV Titration 1000 Amount Albumin Human 25% 50 ml 100 In Empty Bag 1 bag @ 50 mls/hr IVPB Q1H PAU Rx#: [id number] DAPTOmycin 1,000 mg In 50 Sodium Chloride 0.9% 50 ml @ 100 mls/hr IVPB Q24HR PAU Rx#:[id number] Sodium Chloride 0.9% 1, 600 000 ml @ 50 mls/hr IV . Q20H PAU Rx#:[id number] Sodium Chloride 0.9% 250 250 ml @ 250 mls/hr IV .Q1H PAU Rx#:[id number] Oral 2170 Other: Voiding Method Bedpan Bedpan Urinal Urinal # Voids 2 # Bowel Movements 1 1 - Exam Head normocephalic and atraumatic Neck supple no JVD no goiter Lungs clear to auscultation bilaterally no wheezing or crackles Heart irregular rate. known atrial fibrillation Abdomen is soft nontender nondistended positive bowel sounds no hepatosplenome jessica Extremities no edema no cyanosis or clubbing Neuro alert and orientated to 2. Dementia Drainage noted to penile area around catheter. Erosion to groin area. - Labs CBC & Chem 7: 03/31/20 07:34 03/31/20 07:34 Labs: Abnormal Lab Results - Last 24 Hours (Table) 03/30/20 03/30/20 03/30/20 Range/Units 09:12 09:12 09:12 RBC 2.61 L (4.30-5.90) m/uL Hgb 8.6 L (13.0-17.5) gm/dL Hct 27.5 L (39.0-53.0) % MCV 105.0 H (80.0-100.0) fL RDW 17.4 H (11.5-15.5) % Lymphocytes # 0.6 L (1.0-4.8) k/uL PT 34.0 H (9.0-12.0) sec INR 3.5 H (<1.2) Sodium 136 L (137-145) mmol/L Potassium 5.4 H (3.5-5.1) mmol/L BUN 90 H (9-20) mg/dL Creatinine 1.67 H (0.66-1.25) mg/dL Glucose 101 H (74-99) mg/dL POC Glucose (mg/dL) (75-99) mg/dL Alkaline Phosphatase 140 H (38-126) U/L Total Protein 5.4 L (6.3-8.2) g/dL Albumin 2.6 L (3.5-5.0) g/dL 03/30/20 03/30/20 03/30/20 Range/Units 11:31 16:49 20:07 RBC (4.30-5.90) m/uL Hgb (13.0-17.5) gm/dL Hct (39.0-53.0) % MCV (80.0-100.0) fL RDW (11.5-15.5) % Lymphocytes # (1.0-4.8) k/uL PT (9.0-12.0) sec INR (<1.2) Sodium (137-145) mmol/L Potassium (3.5-5.1) mmol/L BUN (9-20) mg/dL Creatinine (0.66-1.25) mg/dL Glucose (74-99) mg/dL POC Glucose (mg/dL) 133 H 131 H 170 H (75-99) mg/dL Alkaline Phosphatase (38-126) U/L Total Protein (6.3-8.2) g/dL Albumin (3.5-5.0) g/dL 03/31/20 Range/Units 06:16 RBC (4.30-5.90) m/uL Hgb (13.0-17.5) gm/dL Hct (39.0-53.0) % MCV (80.0-100.0) fL RDW (11.5-15.5) % Lymphocytes # (1.0-4.8) k/uL PT (9.0-12.0) sec INR (<1.2) Sodium (137-145) mmol/L Potassium (3.5-5.1) mmol/L BUN (9-20) mg/dL Creatinine (0.66-1.25) mg/dL Glucose (74-99) mg/dL POC Glucose (mg/dL) 138 H (75-99) mg/dL Alkaline Phosphatase (38-126) U/L Total Protein (6.3-8.2) g/dL Albumin (3.5-5.0) g/dL Assessment and Plan Assessment: 1. Infection around catheter site with penile erosion. wound culture showing MRSA Enterobacter cloacae. 2. MRSA bacteremia repeat blood cultures ordered, 3. Gram-negative urinary tract infection related to ESBL Proteus mirabilis. 4. Acute kidney injury with elevated potassium. Creatinine elevated at 3.06 upon admission. Continue normal saline at 50. Nephrology services are following 5. Supratherapeutic INR. Hold Coumadin and recheck. patient did receive vi tamin K. Current INR 3.5 6. Possible pneumonia. Patient started on Levaquin and Rocephin. Pulmonary service is consulted 7. History of insulin-dependent diabetes mellitus 8. History of essential hypertension 9. History of hyperlipidemia. Maintained on statin 10. History of stroke with suppressive aphasia 11. History of morbid obesity 12. History of urinary retention and difficulty with Clinton insertion. per urology servicesFoley catheter has been removed patient advised follow-up in one month with urology services for cystoscopy 13. Dementia. Maintained on Aricept and Namenda 14. Diarrhea will check stools for C. diff. 15. Nurse reporting that patient is making statements about being depressed, his is also concerned in that regard, at this time will restart patient on Wellbutrin SR 150 mg by mouth once daily 16. Low temp. Patient has been on Shahnaz hugger. Discussed case with infectious disease urine culture blood culture and chest x-ray ordered. Critical care service also consulted DVT prophylaxis SCDs due to subtherapeutic INR. GI prophylaxis Protonix Infectious disease, nephrology and critical care service is consulted patient remains on daptomycin and Flagyl repeat blood cultures and urine and chest x-ray ordered continue Shahnaz hugger for low temp
--- NOTE | 2020-03-31 16:21 | P.PN ---
Subjective Progress Note Date: 03/31/20 Principal diagnosis: Sepsis secondary to penile erosion with secondary cellulitis On 03/30/2020 patient seen in follow-up on selective care unit, we were asked to see the patient again related to hypothermia temperature of 91.9 degrees Fahrenheit, warming blanket was applied. Patient has had some low blood pressures, yesterday with a blood pressure of 85/38, patient was started on gentle IV hydration, 0.9 normal saline at a rate of 50 ML per hour, blood pressures have improved however he still remains hypothermic, blood cultures were sent, today's chest x-ray has been reviewed although patient is not having much in the way of pulmonary symptoms, no shortness of breath, no cough or congestion or phlegm production. Chest x-ray shows cardiomegaly and interstitial changes, possibly related to pulmonary vessel congestion, no complaints of chest pain, lactic acid 1.0. Patient has been on antibiotics, currently on daptomycin and Diflucan, ID service has been following, for ALLERGY has been following, patient has been on oral Cortef 10 mg twice daily, and midodrine, blood blood cell count is 13.7, hemoglobin is 9.3, INR is 3.8, electrolytes were within normal limits, renal profile is relatively stable with BUN of 77 and creatinine of 1.37. Coronavirus PCR was negative, repeat urinalysis was done on 03/25/2020 showing no evidence of urinary tract infection. His penile wound culture showed anaerobic gram-negative organisms of 3 different types, final cultures pending, groin wound culture showed evidence of MRSA and Enterobacter, and patient had evidence of MRSA on his blood cultures on 03/17/2020, and addition to Proteus mirabilis, most recent cultures on 03/20/2020 showed no growth. Clinically patient appears to be comfortable, he is slightly drowsy but easily wakes up and answer questions, mildly confused however staff states this is his baseline. Denies any specific complaints. No nausea, no vomiting, no diarrhea, no abdominal pain. The patient is seen today 03/31/2020 in follow-up on the selective care unit. He is currently awake and alert in no acute distress. Resting fairly comfortably in bed. He is maintaining O2 saturations in the mid 90s on 2 L/m per nasal cannula. His current temp is 96.8 rectal. Follow-up blood cultures from yesterday reveal no growth to date. White count 10.1. Hemoglobin 8.2. INR 3.0. Sodium 135. Potassium 4.9. Creatinine 2.30. He remains on Symbicort, albuterol. Antibiotics in the form of daptomycin. Anticoagulated with warfarin. Objective - Vital Signs Vital signs: Vital Signs Temp 96.8 F L 03/31/20 12:05 Pulse 60 03/31/20 12:05 Resp 20 03/31/20 12:05 BP 81/37 03/31/20 12:05 Pulse Ox 95 03/31/20 12:05 Intake & Output 03/30/20 03/31/20 03/31/20 18:59 06:59 18:59 Intake Total 3170 370 Balance 3170 370 Weight 127.5 kg Intake: Intake, IV Titration 1000 50 Amount Albumin Human 25% 50 ml 100 In Empty Bag 1 bag @ 50 mls/hr IVPB Q1H PAU Rx#: [id number] DAPTOmycin 1,000 mg In 50 50 Sodium Chloride 0.9% 50 ml @ 100 mls/hr IVPB Q24HR PAU Rx#:[id number] Sodium Chloride 0.9% 1, 600 000 ml @ 100 mls/hr IV . Q10H PAU Rx#:[id number] Sodium Chloride 0.9% 250 250 ml @ 250 mls/hr IV .Q1H PAU Rx#:[id number] Oral 2170 320 Other: Voiding Method Bedpan Bedpan Urinal Urinal # Voids 2 1 # Bowel Movements 1 1 - Exam GENERAL EXAM: Alert, very pleasant obese 74-year-old white male, 2 L of oxygen and the pulse ox 95%, currently under warming blanket for hypothermia comfortable in no apparent distress. HEAD: Normocephalic/atraumatic. EYES: Normal reaction of pupils, equal size. Conjunctiva pink, sclera white. NOSE: Clear with pink turbinates. THROAT: No erythema or exudates. NECK: No masses, no JVD, no thyroid enlargement, no adenopathy. CHEST: No chest wall deformity. Symmetrical expansion. LUNGS: Equal air entry with serial crackles. CVS: Regular rate and rhythm, normal S1 and S2, no gallops, no murmurs, no rubs ABDOMEN: Soft, nontender. No hepatosplenomegaly, normal bowel sounds, no guarding or rigidity. EXTREMITIES: No clubbing, no edema, no cyanosis, 2+ pulses and upper and lower extremities. MUSCULOSKELETAL: Muscle strength and tone normal. SPINE: No scoliosis or deformity SKIN: Bilateral abdominal ulcerations, and maceration with excoriation, left medial calcaneal ulceration CENTRAL NERVOUS SYSTEM: Drowsy but arousable No focal deficits, tone is normal in all 4 extremities. - Labs CBC & Chem 7: 03/31/20 07:34 03/31/20 07:34 Labs: Abnormal Lab Results - Last 24 Hours (Table) 03/30/20 03/30/20 03/31/20 Range/Units 16:49 20:07 06:16 RBC (4.30-5.90) m/uL Hgb (13.0-17.5) gm/dL Hct (39.0-53.0) % MCV (80.0-100.0) fL MCHC (31.0-37.0) g/dL RDW (11.5-15.5) % Plt Count (150-450) k/uL Neutrophils # (1.3-7.7) k/uL PT (9.0-12.0) sec INR (<1.2) Sodium (137-145) mmol/L BUN (9-20) mg/dL Creatinine (0.66-1.25) mg/dL POC Glucose (mg/dL) 131 H 170 H 138 H (75-99) mg/dL Total Protein (6.3-8.2) g/dL Albumin (3.5-5.0) g/dL 03/31/20 03/31/20 03/31/20 Range/Units 07:34 07:34 07:34 RBC 2.54 L (4.30-5.90) m/uL Hgb 8.2 L (13.0-17.5) gm/dL Hct 26.7 L (39.0-53.0) % MCV 104.8 H (80.0-100.0) fL MCHC 30.8 L (31.0-37.0) g/dL RDW 18.1 H (11.5-15.5) % Plt Count 137 L (150-450) k/uL Neutrophils # 8.1 H (1.3-7.7) k/uL PT 28.8 H (9.0-12.0) sec INR 3.0 H (<1.2) Sodium 135 L (137-145) mmol/L BUN 100 H (9-20) mg/dL Creatinine 2.30 H (0.66-1.25) mg/dL POC Glucose (mg/dL) (75-99) mg/dL Total Protein 5.3 L (6.3-8.2) g/dL Albumin 2.6 L (3.5-5.0) g/dL 03/31/20 Range/Units 11:49 RBC (4.30-5.90) m/uL Hgb (13.0-17.5) gm/dL Hct (39.0-53.0) % MCV (80.0-100.0) fL MCHC (31.0-37.0) g/dL RDW (11.5-15.5) % Plt Count (150-450) k/uL Neutrophils # (1.3-7.7) k/uL PT (9.0-12.0) sec INR (<1.2) Sodium (137-145) mmol/L BUN (9-20) mg/dL Creatinine (0.66-1.25) mg/dL POC Glucose (mg/dL) 129 H (75-99) mg/dL Total Protein (6.3-8.2) g/dL Albumin (3.5-5.0) g/dL Microbiology - Last 24 Hours (Table) 03/30/20 10:26 Blood Culture - Preliminary Blood No Growth after 24 hours Assessment and Plan Assessment: #1. Hypothermia, possibly related to sepsis. Patient has been covered with a valgus, and he sets of blood cultures have been sent, lactic acid is within normal limits, we'll send a serum cortisol level, and a TSH level #2. Penile erosion secondary to catheter with suspected infection with secondary cellulitis, questionable early necrotizing fasciitis of the scrotal and the groin area. Wound cultures showed MRSA, Enterobacter cloacae #3. MRSA bacteremia #4. gram-negative urinary tract infection, related to ESBL Proteus mirabilis #5. acute kidney injury with secondary hyperkalemia, improving #6. nonhealing wounds under the abdominal folds, and left calcaneal area #7. obstructive uropathy with a indwelling Clinton catheter in place #8. advanced dementia with impairment in cognitive functions #9. chronic atrial fibrillation with a supratherapeutic PT/INR while on Coumadin #10. history of aortic valve replacement #11. supratherapeutic PT/INR without evidence of an acute bleed #12. hypertension #13. obstructive sleep apnea. #14. history of pacemaker insertion for symptomatically bradycardia #15. COPD currently on room air oxygen with a pulse ox of 94% #16. chronic anemia #17. hyperlipidemia #18. history of previous CVA with expressive aphasia #19. BPH Plan: The patient was seen and evaluated with Dr. Harrison Temperature improving Remains on daptomycin and bronchodilators We will continue to follow I, the cosigning physician, performed a history & physical examination of the patient. Lungs sounds faint basilar crackles. Maintaining good O2 saturations in the 90s on 2 L/m per nasal cannula. I discussed the assessment and plan of care with my nurse practitioner, Nuria Moncada. I attest to the above note as dictated by her.
[2020-03-31 17:00] LABS: Glucose,Whole Blood 140 mg/dL (75-99)
[2020-03-31] MEDS ORDERED: WARFARIN 1 MG TAB PO ONE (18:00)
[2020-03-31] MEDS: SODIUM CHLORIDE 0.9% 1,000 ML IV SCH (19:34)
[2020-03-31] MEDS: TAMSULOSIN 0.4 MG CAP.ER.24H PO SCH (19:35)
[2020-03-31] MEDS: DONEPEZIL 10 MG TAB PO SCH (19:35)
[2020-03-31 20:38] LABS: Glucose,Whole Blood 147 mg/dL (75-99)
--- NOTE | 2020-03-31 22:29 | PN ---
PROGRESS NOTE DATE OF SERVICE: 03/31/2020 REASON FOR FOLLOWUP: 1. MRSA bacteremia soft tissue. 2. Urinary tract infection adequately treated. INTERVAL HISTORY: The patient is currently afebrile. The patient was hypothermic, however, overall temperature seemed to have improved. The patient denies having any chest pain. No shortness of breath or cough. No nausea, no vomiting. No abdominal pain, diarrhea. Stool for C difficile came back negative. PHYSICAL EXAMINATION: Blood pressure is 81/77, pulse of 70, temperature is 97.6, he is 94% on 2 L nasal cannula. General description is an elderly male lying in bed in no distress. Respiratory system: Unlabored breathing, clear to auscultation anteriorly. HEART: S1, S2. Regular rate and rhythm. Abdomen soft, no tenderness. Legs are currently wrapped up. No obvious drainage on the dressing. LABS: Hemoglobin 8.1, white count 10.1, BUN of 100, creatinine is 2.30. Blood culture repeat has been negative so far. DIAGNOSTIC IMPRESSION AND PLAN: 1. Patient with Proteus mirabilis ESBL urinary tract infection, adequately treated, repeat urine negative. 2. Patient with MRSA bacteremia possible source. Currently covered with daptomycin. The patient white count normalized, however, did have a problem with hypotension and worsening of his kidney function for which the patient being monitored closely by Nephrology. MMODL / IJN: [id number] /
[2020-04-01 06:10] LABS: Glucose,Whole Blood 117 mg/dL (75-99)
[2020-04-01] MEDS: SODIUM CHLORIDE 0.9% 1,000 ML IV SCH ×2 (06:26→13:01)
[2020-04-01] MEDS: MAGNESIUM OXIDE 400 MG TAB PO SCH (06:31)
[2020-04-01] MEDS: PANTOPRAZOLE 40 MG TABLET PO SCH (06:31)
[2020-04-01] MEDS: METOPROLOL SUCCINATE (ER) 50 MG TAB.ER.24H PO SCH (06:31)
[2020-04-01] MEDS: CHOLECALCIFEROL 1,000 UNIT TAB PO SCH (06:31)
[2020-04-01] MEDS: MIDODRINE 5 MG TAB PO SCH ×2 (06:31→16:02)
[2020-04-01] MEDS: FERROUS SULFATE 325 MG TAB PO SCH (06:31)
[2020-04-01] MEDS: SYMBICORT 160-4.5 MCG INHALER INHALATION SCH ×2 (07:54→20:55)
[2020-04-01] MEDS: ALBUTEROL HFA INHALER INHALATION PRN (07:55)
[2020-04-01 08:16] LABS: INR 2.4 (<1.2); Prothrombin Time 23.7 sec (9.0-12.0)
[2020-04-01] MEDS: metroNIDAZOLE 500 MG TAB PO SCH ×3 (08:17→21:24)
[2020-04-01] MEDS: HYDROCORTISONE 10 MG TAB PO SCH ×2 (08:17→21:24)
[2020-04-01] MEDS: MEMANTINE 5 MG TAB PO SCH ×2 (08:18→21:24)
[2020-04-01] MEDS: buPROPion SR 150 MG TABLET.ER PO SCH (08:18)
[2020-04-01] MEDS: FLUCONAZOLE 100 MG TAB PO SCH (08:18)
[2020-04-01] MEDS: CLOTRIMAZOLE/BETAMETH 1-0.05% CREAM 45 GM TUBE TOPICAL SCH ×2 (08:18→21:25)
[2020-04-01 08:27] LABS: Albumin 2.7 g/dL (3.5-5.0); Calcium 8.4 mg/dL (8.4-10.2); Potassium 5.4 mmol/L (3.5-5.1); Total Bilirubin 0.9 mg/dL (0.2-1.3); Total Protein 5.6 g/dL (6.3-8.2)
[2020-04-01 08:29] LABS: Anisocytosis Slight; HCT 28.1 % (39.0-53.0); HGB 8.5 gm/dL (13.0-17.5); Hypochromasia Marked; MCH 32.7 pg (25.0-35.0); MCHC 30.4 g/dL (31.0-37.0); MCV 107.8 fL (80.0-100.0); Macrocytosis Marked; Mean Platelet Volume 8.4; Platelet Count 161 k/uL (150-450); Poikilocytosis Moderate; RBC 2.61 m/uL (4.30-5.90)
--- NOTE | 2020-04-01 09:25 | P.PN ---
Subjective Progress Note Date: 04/01/20 Principal diagnosis: This 74-year-old old male, obese, resident of the extended care facility seen in consultation because of acute kidney injury. He has MRSA bacteremia, Proteus mirabilis UTI, history of atrial fibrillation, hypotension with blood pressure running in the 80s. 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 Currently he is awake and alert warm to touch. He denies any complaints Denies any fever chills cough shortness of breath nausea vomiting diarrhea His creatinine is continuing to worsen. It has gone up from 1.05-2.3, to 3.59 as of this morning. Urine output is not documented Objective - Vital Signs Vital signs: Vital Signs Temp 97.7 F 04/01/20 04:00 Pulse 60 04/01/20 04:00 Resp 18 04/01/20 04:00 BP 88/46 04/01/20 04:00 Pulse Ox 95 04/01/20 04:00 Intake & Output 03/31/20 04/01/20 04/01/20 18:59 06:59 18:59 Intake Total 1450 90 Balance 1450 90 Weight 134.5 kg Intake: Intake, IV Titration 50 Amount DAPTOmycin 1,000 mg In 50 Sodium Chloride 0.9% 50 ml @ 100 mls/hr IVPB Q24HR [facility] Rx#:[id number] Oral 1400 90 Other: Voiding Method Bedpan Urinal # Voids 1 1 # Bowel Movements 1 1 Examination is an obese male, profoundly weak difficult even sitting up with 2 people HEENT exam no JVP no facial asymmetry Lungs are clear to auscultation although air entry is less than optimal. Heart sounds are distant but unremarkable Abdomen is obese difficult to examine but nontender Extremity exam was a 1 inch dark blood on his right inner thigh in the middle with some mild edema of the thigh he has bandages on his legs below the knee Neurologically awake alert oriented but profoundly weak as stated above - Labs CBC & Chem 7: 04/01/20 07:44 04/01/20 07:44 Labs: Abnormal Lab Results - Last 24 Hours (Table) 03/31/20 03/31/20 03/31/20 Range/Units 11:49 16:39 20:36 WBC (3.8-10.6) k/uL RBC (4.30-5.90) m/uL Hgb (13.0-17.5) gm/dL Hct (39.0-53.0) % MCV (80.0-100.0) fL MCHC (31.0-37.0) g/dL RDW (11.5-15.5) % Macrocytosis PT (9.0-12.0) sec INR (<1.2) Sodium (137-145) mmol/L Potassium (3.5-5.1) mmol/L BUN (9-20) mg/dL Creatinine (0.66-1.25) mg/dL POC Glucose (mg/dL) 129 H 140 H 147 H (75-99) mg/dL Total Protein (6.3-8.2) g/dL Albumin (3.5-5.0) g/dL 04/01/20 04/01/20 04/01/20 Range/Units 06:09 07:44 07:44 WBC 12.3 H (3.8-10.6) k/uL RBC 2.61 L (4.30-5.90) m/uL Hgb 8.5 L (13.0-17.5) gm/dL Hct 28.1 L (39.0-53.0) % MCV 107.8 H (80.0-100.0) fL MCHC 30.4 L (31.0-37.0) g/dL RDW 18.0 H (11.5-15.5) % Macrocytosis Marked A PT 23.7 H (9.0-12.0) sec INR 2.4 H (<1.2) Sodium (137-145) mmol/L Potassium (3.5-5.1) mmol/L BUN (9-20) mg/dL Creatinine (0.66-1.25) mg/dL POC Glucose (mg/dL) 117 H (75-99) mg/dL Total Protein (6.3-8.2) g/dL Albumin (3.5-5.0) g/dL 04/01/20 Range/Units 07:44 WBC (3.8-10.6) k/uL RBC (4.30-5.90) m/uL Hgb (13.0-17.5) gm/dL Hct (39.0-53.0) % MCV (80.0-100.0) fL MCHC (31.0-37.0) g/dL RDW (11.5-15.5) % Macrocytosis PT (9.0-12.0) sec INR (<1.2) Sodium 133 L (137-145) mmol/L Potassium 5.4 H (3.5-5.1) mmol/L BUN 105 H* (9-20) mg/dL Creatinine 3.59 H (0.66-1.25) mg/dL POC Glucose (mg/dL) (75-99) mg/dL Total Protein 5.6 L (6.3-8.2) g/dL Albumin 2.7 L (3.5-5.0) g/dL Microbiology - Last 24 Hours (Table) 03/30/20 10:26 Blood Culture - Preliminary Blood No Growth after 24 hours Assessment and Plan Assessment: Impression 1. Acute kidney injury worsening creatinine. Etiology is bacteremia and sepsis. Hypotension is making it worse. Creatinine gone up, was 1.67, 2.3 and 2.59 over the last 3 days. His baseline creatinine was 1.05 on 03/23/2020 2. MRSA bacteremia with additional urine tract infection with Proteus mirabilis. 3. History of atrial fibrillation 4. Obesity 5. Known with COPD, obstructive sleep apnea Recommendation 1. Continue IV fluids can currently on 100 mL an hour normal saline 2. Check postvoid residual. 3. He may need an echocardiogram to rule out cardiorenal syndrome and poor ejection fraction. 4. Suggest move him to ICU and start him on levo fed as his blood pressure is low
--- NOTE | 2020-04-01 10:12 | P.PN ---
Subjective Progress Note Date: 04/01/20 Te Brady is a 74-year-old male patient who presented to the ER from rehab with complaints of increased O fungal rash in the groin eroding foreskin secondary to catheter. Patient also had acute kidney injury and elevated INR. Patient's past medical history of atrial fibrillation which she is maintained on Coumadin, heart failure, COPD, dementia, hypertension, myocardial infarction, osteoarthritis with sleep apnea in which he uses home CPAP machine, pacemaker, anxiety and heart valve replacement. Patient's creatinine upon admission 3.07 and bun 77 potassium also elevated at 56. INR greater than 10. UA positive for the same Estrace. Chest x-ray completed showing T over the left lower lung r egion correlate for atelectasis or pneumonia. At this time patient has been started on Rocephin and Levaquin for IV antibiotics. Urology services have been consulted. Nephrology service is consulted for acute kidney injury. Potassium lowering cocktail given per nephrology. Dr. zavala and has been consulted for pulmonary due to possible pneumonia. Wound and blood cultures ordered. at this time patient denies chest pain or shortness of breath. Patient denies nausea vomiting or diarrhea. On 03/19/2020 patient was seen and examined on the medical floor he is alert and oriented 3 in no apparent distress, he is complaining of diarrhea with stool incontinence, otherwise he denies any complaints there is no fever or chills no headache or dizziness, no chest pain no shortness of breath no cough no nausea or vomiting no abdominal pain no blood in the stools no burning with urination no frequency or urgency and no hematuria 03/20/2020 patient was seen and examined on the medical floor he is alert and oriented 3 in no apparent distress there is no fever or chills no headache or d izziness no chest pain no shortness of breath no cough no nausea or vomiting no abdominal pain no diarrhea no blood in the stools no burning with urination no frequency or urgency and no hematuria. Clinton catheter has been removed and patient is able to urinate. INR is still elevated patient will be getting vitamin K 2.5 mg by mouth 1 time today on 03/21/2020 patient is alert and oriented 3currently sitting up in chair. INR today 3.5. patient maintained on meropenem and vancomycin for IV an tibiotics. At that time Clinton catheter has been removed to patient voiding independently will follow-up outpatient with urology for possible cystoscopy. At this time patient denies chest pain or shortness of breath. Patient denies nausea vomiting or diarrhea. Patient denies any urinary burning or frequency On 03/22/2020 patient was seen and examined on the medical floor he is alert and oriented 3 in no distress, he had the midline placed today and antibiotic were resumed, white blood count is elevated at 13.5, there is no fever or chills no headache or dizziness no chest pain no shortness of breath no cough no nausea or vomiting no abdominal pain no diarrhea and no urinary symptoms. On 03/23/2020 patient was seen and examined on the medical floor he is alert and oriented 3 in no apparent distress there is no fever or chills no headache or dizziness no chest pain no shortness of breath no cough no nausea or vomiting no abdominal pain no diarrhea and no urinary symptoms white blood count remains elevated, patient was resumed on IV antibiotic via midline will continue to monitor during this weekend. On 03/24/2020 patient was seen and examined on the medical floor he is alert and oriented in no apparent distress he is sitting up in chair he denies any complaints at this time there is no fever or chills no headache or dizziness no chest pain no shortness of breath no palpitation no cough no nausea or vomiting no abdominal pain no diarrhea no blood in the stools no burning with urination no frequency or urgency and no hematuria. On 03/25/2020 patient was seen and examined on the medical floor he is alert and oriented in no distress he denies any symptoms at this time, he is sitting up in a chair eating his meal, there is no fever or chills no headache or dizziness no chest pain no shortness of breath no cough no nausea or vomiting no abdominal pain no diarrhea no blood in the stools no burning with urination no frequency or urgency and no hematuria. Infectious disease recommendation reviewed patient has a midline he will need to go to the long term on IV antibiotic. on 03/26/2020 patient was seen and examined on the medical floor he is alert and oriented 3 in no distress he is complaining of generalized weakness otherwise no specific complaints there is no fever or chills no headache or dizziness no chest pain no shortness of breath no cough no nausea or vomiting no abdominal pain no diarrhea and no urinary symptoms, he remains on IV antibiotic white blood count is still elevated . Patient has a midline in the right arm, he will need to continue IV antibiotic at the long term, he is urinating well without Clinton catheter. On 03/27/2020 patient was seen and examined on the medical floor he is alert and oriented 3 in no distress there is no fever or chills no headache or dizziness no chest pain no shortness of breath no cough no nausea or vomiting no abdominal pain no diarrhea no blood in the stools no burning with urination no frequency or urgency and no hematuria is still complaining of generalized weakness On 03/28/2020 patient is alert and oriented 3. Discussed case with Dr. Walt Aviles and continue daptomycin recommending keeping patient 24 more hours to watch kidney function. Likely discharge to [facility] tomorrow. Patient denies chest pain or shortness of breath. Patient denies nausea vomiting or diarrhea. Patient denies any urinary burning or frequency. Did discuss case also with nephrology services recommending lasix twice a day upon discharge On 03/29/2020 patient was seen and examined on the medical floor he is alert and oriented 3 in no apparent distress there is no fever or chills no headache or dizziness no chest pain no shortness of breath no cough no nausea or vomiting no abdominal pain no diarrhea no blood in the stools no burning with urination no frequency or urgency and no hematuria. Kidney function is slightly worse today. At this time patient is stable, awaiting clearance from infectious disease and nephrology, and the recommendation for discharge antibiotics On 03/30/2020 patient had low temp all-night. Rectal temps were obtained and patient was placed on bear hugger. Patient is alert and oriented. At this time critical care services have been consulted. Chest x-ray urine culture and blood cultures ordered. Did discuss case with infectious disease updated outpatient physician. Blood pressure and heart rate have remained stable. Lactic acid was checked in stable at 1.0. Kidney function slightly worse today. Continue to monitor patient very closely critical care infectious disease and nephrology services are following. On 03/31/2020 patient was seen and examined on the medical floor he is alert and oriented 3 in no distress, he is still having episodes of hypothermia, there is no fever or chills no headache or dizziness no chest pain no shortness of breath no cough no nausea or vomiting no abdominal pain no diarrhea and no urinary symptoms. Medication and labs were reviewed, input from multiple consultants reviewed in details. On 04/01/2020 patient is alert and oriented 3. Creatinine increasing. Patient also having low pressures. Recommendations per nephrology to transfer patient to ICU and start Levophed. 2-D echo cardiology consult placed also to rule out cardiorenal syndrome. Discussed case with critical care team and nurse practitioner, updated on nephrology recommendation on ICU transfer and initiation of Levophed. At this time patient denies chest pain. Patient denies shortness breath. Patient denies nausea vomiting or diarrhea. Patient denies any urinary burning or frequency. Critical care, nephrology, infectious disease already following. Cardiology consult placed Objective - Vital Signs Vital signs: Vital Signs Temp 97.5 F L 03/31/20 23:42 Pulse 60 03/31/20 23:42 Resp 18 03/31/20 23:42 BP 94/50 03/31/20 23:42 Pulse Ox 93 L 03/31/20 23:42 Intake & Output 03/31/20 03/31/20 04/01/20 06:59 18:59 06:59 Intake Total 1450 Balance 1450 Weight 127.5 kg Intake: Intake, IV Titration 50 Amount DAPTOmycin 1,000 mg In 50 Sodium Chloride 0.9% 50 ml @ 100 mls/hr IVPB Q24HR [facility] Rx#:[id number] Oral 1400 Other: Voiding Method Bedpan Bedpan Urinal Urinal # Voids 1 # Bowel Movements 1 1 - Exam Head normocephalic and atraumatic Neck supple no JVD no goiter Lungs clear to auscultation bilaterally no wheezing or crackles Heart irregular rate. known atrial fibrillation Abdomen is soft nontender nondistended positive bowel sounds no hepatosplenomegaly Extremities no edema no cyanosis or clubbing Neuro alert and orientated to 2. Dementia Drainage noted to penile area around catheter. Erosion to groin area. - Labs CBC & Chem 7: 04/01/20 07:44 04/01/20 07:44 Labs: Abnormal Lab Results - Last 24 Hours (Table) 03/31/20 03/31/20 03/31/20 Range/Units 06:16 07:34 07:34 RBC 2.54 L (4.30-5.90) m/uL Hgb 8.2 L (13.0-17.5) gm/dL Hct 26.7 L (39.0-53.0) % MCV 104.8 H (80.0-100.0) fL MCHC 30.8 L (31.0-37.0) g/dL RDW 18.1 H (11.5-15.5) % Plt Count 137 L (150-450) k/uL Neutrophils # 8.1 H (1.3-7.7) k/uL PT 28.8 H (9.0-12.0) sec INR 3.0 H (<1.2) Sodium (137-145) mmol/L BUN (9-20) mg/dL Creatinine (0.66-1.25) mg/dL POC Glucose (mg/dL) 138 H (75-99) mg/dL Total Protein (6.3-8.2) g/dL Albumin (3.5-5.0) g/dL 03/31/20 03/31/20 03/31/20 Range/Units 07:34 11:49 16:39 RBC (4.30-5.90) m/uL Hgb (13.0-17.5) gm/dL Hct (39.0-53.0) % MCV (80.0-100.0) fL MCHC (31.0-37.0) g/dL RDW (11.5-15.5) % Plt Count (150-450) k/uL Neutrophils # (1.3-7.7) k/uL PT (9.0-12.0) sec INR (<1.2) Sodium 135 L (137-145) mmol/L BUN 100 H (9-20) mg/dL Creatinine 2.30 H (0.66-1.25) mg/dL POC Glucose (mg/dL) 129 H 140 H (75-99) mg/dL Total Protein 5.3 L (6.3-8.2) g/dL Albumin 2.6 L (3.5-5.0) g/dL 03/31/20 Range/Units 20:36 RBC (4.30-5.90) m/uL Hgb (13.0-17.5) gm/dL Hct (39.0-53.0) % MCV (80.0-100.0) fL MCHC (31.0-37.0) g/dL RDW (11.5-15.5) % Plt Count (150-450) k/uL Neutrophils # (1.3-7.7) k/uL PT (9.0-12.0) sec INR (<1.2) Sodium (137-145) mmol/L BUN (9-20) mg/dL Creatinine (0.66-1.25) mg/dL POC Glucose (mg/dL) 147 H (75-99) mg/dL Total Protein (6.3-8.2) g/dL Albumin (3.5-5.0) g/dL Microbiology - Last 24 Hours (Table) 03/30/20 10:26 Blood Culture - Preliminary Blood No Growth after 24 hours Assessment and Plan Assessment: 1. Infection around catheter site with penile erosion. wound culture showing MRSA Enterobacter cloacae. 2. MRSA bacteremia repeat blood cultures ordered, 3. Gram-negative urinary tract infection related to ESBL Proteus mirabilis. 4. Acute kidney injury with elevated potassium. Creatinine elevated at 3.06 upon admission. Continue normal saline at 50. Nephrology services are following 5. Supratherapeutic INR. Hold Coumadin and recheck. patient did receive vitamin K. Current INR 3.5 6. Possible pneumonia. Patient started on Levaquin and Rocephin. Pulmonary service is consulted 7. History of insulin-dependent diabetes mellitus 8. History of essential hypertension 9. History of hyperlipidemia. Maintained on statin 10. History of stroke with suppressive aphasia 11. History of morbid obesity 12. History of urinary retention and difficulty with Clinton insertion. per urology servicesFoley catheter has been removed patient advised follow-up in one month with urology services for cystoscopy 13. Dementia. Maintained on Aricept and Namenda 14. Diarrhea will check stools for C. diff. 15. Nurse reporting that patient is making statements about being depressed, his is also concerned in that regard, at this time will restart patient on Wellbutrin SR 150 mg by mouth once daily 16. Low temp. Patient has been on Shahnaz hugger. Discussed case with infectious disease urine culture blood culture and chest x-ray ordered. Critical care service also consulted DVT prophylaxis SCDs due to subtherapeutic INR. GI prophylaxis Protonix Infectious disease, nephrology and critical care service is consulted patient remains on daptomycin and Flagyl repeat blood cultures and urine and chest x-ray ordered continue Shahnaz hugger for low temp Nephrology services recommend transfer to intensive care unit and initiation of Levophed for blood pressure support, this was discussed with the critical care team. Per critical care team will evaluate patient. 2-D echo and cardiology consult placed
[2020-04-01 10:39] LABS: Band Neutrophils % 1 %; Eosinophils # (M) 0.24 k/uL (0-0.7); Lymphocytes # (M) 0.61 k/uL (1.0-4.8); Monocytes # (M) 0.97 k/uL (0-1.0); Myelocytes # (M) 0.12 k/uL (0); Myelocytes % 1 %; Neutrophils % (M) 85 %; Nucleated Red Blood Cells 2 /100 WBC (0-0); Total Cells Counted 200; WBC 12.1 k/uL (3.8-10.6)
[2020-04-01 10:41] LABS: Polychromasia Present
[2020-04-01 12:15] LABS: Glucose,Whole Blood 165 mg/dL (75-99)
[2020-04-01 17:32] LABS: Glucose,Whole Blood 154 mg/dL (75-99)
--- NOTE | 2020-04-01 17:34 | P.PN ---
Subjective Progress Note Date: 04/01/20 Principal diagnosis: Sepsis secondary to penile erosion with secondary cellulitis On 03/30/2020 patient seen in follow-up on selective care unit, we were asked to see the patient again related to hypothermia temperature of 91.9 degrees Fahrenheit, warming blanket was applied. Patient has had some low blood pressures, yesterday with a blood pressure of 85/38, patient was started on gentle IV hydration, 0.9 normal saline at a rate of 50 ML per hour, blood pressures have improved however he still remains hypothermic, blood cultures were sent, today's chest x-ray has been reviewed although patient is not having much in the way of pulmonary symptoms, no shortness of breath, no cough or congestion or phlegm production. Chest x-ray shows cardiomegaly and interstitial changes, possibly related to pulmonary vessel congestion, no complaints of chest pain, lactic acid 1.0. Patient has been on antibiotics, currently on daptomycin and Diflucan, ID service has been following, for ALLERGY has been following, patient has been on oral Cortef 10 mg twice daily, and midodrine, blood blood cell count is 13.7, hemoglobin is 9.3, INR is 3.8, electrolytes were within normal limits, renal profile is relatively stable with BUN of 77 and creatinine of 1.37. Coronavirus PCR was negative, repeat urinalysis was done on 03/25/2020 showing no evidence of urinary tract infection. His penile wound culture showed anaerobic gram-negative organisms of 3 different types, final cultures pending, groin wound culture showed evidence of MRSA and Enterobacter, and patient had evidence of MRSA on his blood cultures on 03/17/2020, and addition to Proteus mirabilis, most recent cultures on 03/20/2020 showed no growth. Clinically patient appears to be comfortable, he is slightly drowsy but easily wakes up and answer questions, mildly confused however staff states this is his baseline. Denies any specific complaints. No nausea, no vomiting, no diarrhea, no abdominal pain. The patient is seen today 03/31/2020 in follow-up on the selective care unit. He is currently awake and alert in no acute distress. Resting fairly comfortably in bed. He is maintaining O2 saturations in the mid 90s on 2 L/m per nasal cannula. His current temp is 96.8 rectal. Follow-up blood cultures from yesterday reveal no growth to date. White count 10.1. Hemoglobin 8.2. INR 3.0. Sodium 135. Potassium 4.9. Creatinine 2.30. He remains on Symbicort, albuterol. Antibiotics in the form of daptomycin. Anticoagulated with warfarin. The patient is seen today 04/01/2020 in follow-up on the selective care unit. He is currently resting in bed. He is awake and alert in no acute distress. He denies any dizziness or lightheadedness. There is been some concern regarding hypotension of the patient appears to be tolerating his blood pressure chest fine. He does have significant edema of the upper extremities and accuracy of the blood pressure reading has been questioned. White count 12.1. Hemoglobin 8.5. INR 2.4. Sodium 133. Potassium 5.4. BUN 105. Creatinine 3.59. He is currently on daptomycin and Flagyl. Anticoagulated with warfarin. Remains on bronchodilators and Solu-Cortef. Objective - Vital Signs Vital signs: Vital Signs Temp 95.4 F L 04/01/20 16:00 Pulse 60 04/01/20 16:00 Resp 18 04/01/20 16:00 BP 106/73 04/01/20 16:00 Pulse Ox 96 04/01/20 16:00 Intake & Output 03/31/20 04/01/20 04/01/20 18:59 06:59 18:59 Intake Total 1450 210 Output Total 0 Balance 1450 210 Weight 134.5 kg Intake: Intake, IV Titration 50 Amount DAPTOmycin 1,000 mg In 50 Sodium Chloride 0.9% 50 ml @ 100 mls/hr IVPB Q24HR [facility] Rx#:[id number] Oral 1400 210 Output: Urine 0 Other: Voiding Method Bedpan Urinal # Voids 1 0 # Bowel Movements 1 1 - Exam GENERAL EXAM: Alert, very pleasant obese 74-year-old white male, 2 L of oxygen and the pulse ox 96%, currently under warming blanket for hypothermia comfortable in no apparent distress. HEAD: Normocephalic/atraumatic. EYES: Normal reaction of pupils, equal size. Conjunctiva pink, sclera white. NOSE: Clear with pink turbinates. THROAT: No erythema or exudates. NECK: No masses, no JVD, no thyroid enlargement, no adenopathy. CHEST: No chest wall deformity. Symmetrical expansion. LUNGS: Equal air entry with bibasilar crackles. CVS: Regular rate and rhythm, normal S1 and S2, no gallops, no murmurs, no rubs ABDOMEN: Soft, nontender. No hepatosplenomegaly, normal bowel sounds, no guarding or rigidity. EXTREMITIES: No clubbing, no edema, no cyanosis, 2+ pulses and upper and lower extremities. MUSCULOSKELETAL: Muscle strength and tone normal. SPINE: No scoliosis or deformity SKIN: Bilateral abdominal ulcerations, and maceration with excoriation, left medial calcaneal ulceration CENTRAL NERVOUS SYSTEM: Drowsy but arousable No focal deficits, tone is normal in all 4 extremities. - Labs CBC & Chem 7: 04/01/20 07:44 04/01/20 07:44 Labs: Abnormal Lab Results - Last 24 Hours (Table) 03/31/20 04/01/20 04/01/20 Range/Units 20:36 06:09 07:44 WBC (3.8-10.6) k/uL RBC (4.30-5.90) m/uL Hgb (13.0-17.5) gm/dL Hct (39.0-53.0) % MCV (80.0-100.0) fL MCHC (31.0-37.0) g/dL RDW (11.5-15.5) % Neutrophils # (Manual) (1.3-7.7) k/uL Lymphocytes # (Manual) (1.0-4.8) k/uL Myelocytes # (Manual) (0) k/uL Nucleated RBCs (0-0) /100 WBC Macrocytosis PT 23.7 H (9.0-12.0) sec INR 2.4 H (<1.2) Sodium (137-145) mmol/L Potassium (3.5-5.1) mmol/L BUN (9-20) mg/dL Creatinine (0.66-1.25) mg/dL POC Glucose (mg/dL) 147 H 117 H (75-99) mg/dL Total Protein (6.3-8.2) g/dL Albumin (3.5-5.0) g/dL 04/01/20 04/01/20 04/01/20 Range/Units 07:44 07:44 12:13 WBC 12.1 H (3.8-10.6) k/uL RBC 2.61 L (4.30-5.90) m/uL Hgb 8.5 L (13.0-17.5) gm/dL Hct 28.1 L (39.0-53.0) % MCV 107.8 H (80.0-100.0) fL MCHC 30.4 L (31.0-37.0) g/dL RDW 18.0 H (11.5-15.5) % Neutrophils # (Manual) 10.40 H (1.3-7.7) k/uL Lymphocytes # (Manual) 0.61 L (1.0-4.8) k/uL Myelocytes # (Manual) 0.12 H (0) k/uL Nucleated RBCs 2 H (0-0) /100 WBC Macrocytosis Marked A PT (9.0-12.0) sec INR (<1.2) Sodium 133 L (137-145) mmol/L Potassium 5.4 H (3.5-5.1) mmol/L BUN 105 H* (9-20) mg/dL Creatinine 3.59 H (0.66-1.25) mg/dL POC Glucose (mg/dL) 165 H (75-99) mg/dL Total Protein 5.6 L (6.3-8.2) g/dL Albumin 2.7 L (3.5-5.0) g/dL Microbiology - Last 24 Hours (Table) 03/30/20 10:26 Blood Culture - Preliminary Blood No Growth after 48 hours Assessment and Plan Assessment: #1. Hypothermia, possibly related to sepsis. Recovered. Temperature this morning 97.3 axillary. #2. Penile erosion secondary to catheter with suspected infection with secondary cellulitis, questionable early necrotizing fasciitis of the scrotal and the groin area. Wound cultures showed MRSA, Enterobacter cloacae #3. MRSA bacteremia #4. gram-negative urinary tract infection, related to ESBL Proteus mirabilis #5. acute kidney injury with secondary hyperkalemia, improving #6. nonhealing wounds under the abdominal folds, and left calcaneal area #7. obstructive uropathy with a indwelling Clinton catheter in place #8. advanced dementia with impairment in cognitive functions #9. chronic atrial fibrillation with a supratherapeutic PT/INR while on Coumadin #10. history of aortic valve replacement #11. supratherapeutic PT/INR without evidence of an acute bleed #12. hypertension #13. obstructive sleep apnea. #14. history of pacemaker insertion for symptomatically bradycardia #15. COPD currently on room air oxygen with a pulse ox of 94% #16. chronic anemia #17. hyperlipidemia #18. history of previous CVA with expressive aphasia #19. BPH Plan: The patient was seen and evaluated with Dr. Harrison The patient is awake and alert and not demonstrating evidence of symptomatic hypotension Blood pressure this afternoon 106/73, will not to be transferred to the ICU currently Remains on daptomycin and bronchodilators We will continue to follow I, the cosigning physician, performed a history & physical examination of the patient. Lungs sounds faint basilar crackles. Maintaining good O2 saturations in the 90s on 2 L/m per nasal cannula. I discussed the assessment and plan of care with my nurse practitioner, Nuria Moncada. I attest to the above note as dictated by her.
[2020-04-01 17:42] LABS: Glucose,Whole Blood 186 mg/dL (75-99)
[2020-04-01] MEDS ORDERED: WARFARIN 2 MG TAB PO ONE (18:00)
[2020-04-01 20:49] LABS: Glucose,Whole Blood 191 mg/dL (75-99)
[2020-04-01] MEDS: DONEPEZIL 10 MG TAB PO SCH (21:24)
[2020-04-01] MEDS: TAMSULOSIN 0.4 MG CAP.ER.24H PO SCH (21:24)
--- NOTE | 2020-04-02 03:30 | PN ---
PROGRESS NOTE DATE OF SERVICE: 04/01/2020 REASON FOR FOLLOWUP: MRSA bacteremia. INTERVAL HISTORY: The patient is currently afebrile. The patient is feeling better. Breathing comfortably. The patient denies having any chest pain or cough. No abdominal pain or pain to the lower extremity. PHYSICAL EXAMINATION: Blood pressure 106/73 with a pulse of 60, temperature 95.4. He is 96% on 2 L nasal cannula. General description is an elderly male lying in bed in no distress. RESPIRATORY SYSTEM: Unlabored breathing, decreased breath sounds in the bases. No wheeze. HEART: S1, S2. Regular rate and rhythm. ABDOMEN: Soft, no tenderness. LEGS: Currently wrapped up, no obvious drainage on the dressing. LABS: Hemoglobin 8.5, white count 12.1, BUN 105, creatinine 3.59. DIAGNOSTIC IMPRESSION AND PLAN: Patient with MRSA bacteremia possible skin and soft tissue source in this patient's follow-up blood culture had been negative. However, the patient noted to have worsening of his kidney function for which the patient is being monitored closely by Nephrology. Continue supportive care. MMODL / IJN: [id number] /
[2020-04-02] MEDS: SODIUM CHLORIDE 0.9% 1,000 ML IV SCH ×4 (03:40→19:09)
[2020-04-02 06:13] LABS: Glucose,Whole Blood 135 mg/dL (75-99)
[2020-04-02] MEDS: CHOLECALCIFEROL 1,000 UNIT TAB PO SCH (07:11)
[2020-04-02] MEDS: FERROUS SULFATE 325 MG TAB PO SCH (07:11)
[2020-04-02] MEDS: METOPROLOL SUCCINATE (ER) 50 MG TAB.ER.24H PO SCH ×2 (07:11→09:07)
[2020-04-02] MEDS: PANTOPRAZOLE 40 MG TABLET PO SCH (07:11)
[2020-04-02] MEDS: MIDODRINE 5 MG TAB PO SCH ×2 (07:11→19:08)
[2020-04-02] MEDS: MAGNESIUM OXIDE 400 MG TAB PO SCH (07:11)
[2020-04-02 08:26] LABS: Albumin 2.9 g/dL (3.5-5.0); Calcium 8.4 mg/dL (8.4-10.2); Potassium 5.8 mmol/L (3.5-5.1); Total Bilirubin 0.9 mg/dL (0.2-1.3); Total Protein 5.9 g/dL (6.3-8.2)
[2020-04-02 08:36] LABS: INR 2.4 (<1.2); Prothrombin Time 22.9 sec (9.0-12.0)
[2020-04-02 08:41] LABS: Anisocytosis Slight; Basophils # (A) 0.1 k/uL (0-0.2); Basophils % (A) 0 %; Eosinophils # (A) 0.1 k/uL (0-0.7); Eosinophils % (A) 1 %; HCT 30.6 % (39.0-53.0); Hypochromasia Marked; Lymphocytes # (A) 0.8 k/uL (1.0-4.8); Lymphocytes % (A) 7 %; MCHC 29.3 g/dL (31.0-37.0); MCV 109.2 fL (80.0-100.0); Macrocytosis Marked; Mean Platelet Volume 9.4; Monocytes # (A) 0.8 k/uL (0-1.0); Monocytes % (A) 6 %; Neutrophils % (A) 85 %; Platelet Count 167 k/uL (150-450); Poikilocytosis Moderate; RDW 18.4 % (11.5-15.5)
[2020-04-02] MEDS: FLUCONAZOLE 100 MG TAB PO SCH ×2 (09:07→09:16)
[2020-04-02] MEDS: HYDROCORTISONE 10 MG TAB PO SCH (09:07)
[2020-04-02] MEDS: MEMANTINE 5 MG TAB PO SCH ×2 (09:07→21:43)
[2020-04-02] MEDS: buPROPion SR 150 MG TABLET.ER PO SCH (09:07)
[2020-04-02] MEDS: metroNIDAZOLE 500 MG TAB PO SCH ×3 (09:08→21:43)
[2020-04-02] MEDS: CLOTRIMAZOLE/BETAMETH 1-0.05% CREAM 45 GM TUBE TOPICAL SCH (09:08)
[2020-04-02] MEDS ORDERED: HEPARIN SODIUM 1,000 UN/ML (10ML VL) ONE (09:18)
[2020-04-02] MEDS ORDERED: LIDOCAINE 1% INJ 10MG/ML (20 ML MDV) ONE (09:18)
[2020-04-02 09:32] LABS: Polychromasia Present
[2020-04-02] MEDS: SYMBICORT 160-4.5 MCG INHALER INHALATION SCH ×2 (09:39→17:30)
[2020-04-02 09:42] LABS: Glucose,Whole Blood 155 mg/dL (75-99)
[2020-04-02] MEDS ORDERED: SODIUM CHLORIDE 0.9% 1,000 ML IV ONE (10:12)
[2020-04-02] MEDS ORDERED: NOREPINEPHRINE 4 MG in SODIUM CHLORIDE 0.9% 250 ML IV SCH (10:30)
[2020-04-02] MEDS: NOREPINEPHRINE 32 MG in SODIUM CHLORIDE 0.9% 218 ML IV SCH (10:40)
[2020-04-02 10:48] LABS: ABG Base Excess -8.1 mmol/L; ABG HCO3 22 mmol/L (21-25); ABG Oxygen Saturation 99.4 % (94-97); ABG PO2 161 mmHg (83-108); ABG TCO2 25 mmol/L (19-24); Allen Test Performed? Yes
[2020-04-02 10:56] LABS: ABG PCO2 77 mmHg (35-45); ABG PH 7.06 (7.35-7.45)
--- NOTE | 2020-04-02 11:00 | ECHOF ---
Referral Reason:r/o cardiorenal syndrome MEASUREMENTS -------- HEIGHT: 180.3 cm WEIGHT: 122.9 kg BP: RVIDd: 4.7 cm (< 3.3) IVSd: 1.4 cm (0.6 - 1.1) LVIDd: 4.2 cm (3.9 - 5.3) LVPWd: 1.5 cm (0.6 - 1.1) IVSs: 2.0 cm LVIDs: 2.6 cm LVPWs: 2.0 cm MV EXCURSION: 18.655 mm (> 18.000) MV EF SLOPE: 43 mm/s (70 - 150) EPSS: 0.7 cm MV E Nathan: 1.12 m/s MV DecT: 241 ms MV A Nathan: 0.40 m/s MV E/A Ratio: 2.80 AV maxP.65 mmHg AV meanP.60 mmHg AR PHT: 191 ms RAP: 5.00 mmHg RVSP: 20.86 mmHg FINDINGS -------- This was a technically difficult study with suboptimal views. The left ventricular size is normal. There is mild concentric left ventricular hypertrophy. Overa ll left ventricular systolic function is low-normal with, an EF between 50 - 55 %. There is paradox ical/dysynergic septal motion consistent with right ventricular volume overload and/or elevated right ventricular end-diastolic pressure. The right ventricle is severely enlarged. The left atrial size is normal. The right atrium was not well visualized. Lumason used Trace amount of aortic regurgitation. The mitral valve leaflets are mildly thickened. Mild mitral regurgitation is present. The tricuspid valve appears structurally normal. Severe tricuspid regurgitation present. Right ve ntricular systolic pressure is normal at < 35 mmHg. There is no pulmonic regurgitation present. The aortic root size is normal. IVC Not well visulized. There is no pericardial effusion. CONCLUSIONS -------- 1. The left ventricular size is normal. 2. There is mild concentric left ventricular hypertrophy. 3. Overall left ventricular systolic function is low-normal with, an EF between 50 - 55 %. 4. There is paradoxical/dysynergic septal motion consistent with right ventricular volume overload an d/or elevated right ventricular end-diastolic pressure. 5. The mitral valve leaflets are mildly thickened. 6. Mild mitral regurgitation is present. 7. Severe tricuspid regurgitation present. 8. There is no pericardial effusion. HUMAN RESOURCES EXECUTIVE ASSISTANT: Suly Poole RDCS
[2020-04-02 11:04] LABS: Amorphous Sediment,Urine Few /hpf; Appearance,Urine Turbid (Clear); Bacteria,Urine Occasional /hpf; Bilirubin,Urine Negative (Negative); Blood,Urine Small (Negative); Color,Urine Dark Brown; Glucose,Urine (UA) Negative (Negative); Ketones,Urine Negative (Negative); Leukocyte Esterase,Urine Small (Negative); Nitrite,Urine Negative (Negative); PH, Urine 5.5 (5.0-8.0); Protein,Urine 2+ (Negative); RBC,Urine 21 /hpf (0-5); Specific Gravity,Urine 1.019 (1.001-1.035); Squamous Epithelial Cell,Urine <1 /hpf (0-4); Urobilinogen,Urine <2.0 mg/dL (<2.0); WBC,Urine 19 /hpf (0-5)
--- NOTE | 2020-04-02 11:28 | XR ---
EXAMINATION TYPE: XR chest 1V portable DATE OF EXAM: 04/02/2020 COMPARISON: 03/30/2020 HISTORY: Sepsis, fever FINDINGS: There are bilateral pleural effusions with cardiomegaly and bibasilar infiltrate. There is a diffuse interstitial pattern. Postoperative change noted and there is a cardiac device. Biapical pleural thi ckening. Central line seen with the tip overlying the SVC. No sizable pneumothorax. IMPRESSION: 1. Diffuse pleural-parenchymal changes could be on the basis of CHF or atypical pneumonia correlate c lakisha.
[2020-04-02] MEDS: MEROPENEM 1 GM in SODIUM CHLORIDE 0.9% 100 ML IVPB SCH ×2 (11:37→22:47)
--- NOTE | 2020-04-02 11:41 | P.PN ---
Subjective Progress Note Date: 04/02/20 Urology was called back for worsening kidney function and low urine output. Creat 4.43 from baseline of 1-1.2. Dr Limon evaluated the patient on 03/18 for penile erosion Objective - Vital Signs Vital signs: Vital Signs Temp 96.1 F L 04/02/20 04:00 Pulse 60 04/02/20 04:00 Resp 18 04/02/20 04:00 BP 83/35 04/02/20 11: Pulse Ox 94 L 04/02/20 04:00 Intake & Output 04/01/20 04/02/20 04/02/20 18:59 06:59 18:59 Intake Total 450 1000 Output Total 0 20 Balance 450 980 Weight 123 kg Intake: IV 1000 Sodium Chloride 0.9% 1, 1000 000 ml @ 999 mls/hr IV . Q1H1M [facility] Rx#:[id number] Oral 450 Output: Urine 0 20 Other: Voiding Method Diaper # Voids 0 1 # Bowel Movements 1 1 - Labs CBC & Chem 7: 04/02/20 06:34 04/02/20 06:34 Labs: Abnormal Lab Results - Last 24 Hours (Table) 04/01/20 04/01/20 04/01/20 Range/Units 12:13 17:14 17:29 WBC (3.8-10.6) k/uL RBC (4.30-5.90) m/uL Hgb (13.0-17.5) gm/dL Hct (39.0-53.0) % MCV (80.0-100.0) fL MCHC (31.0-37.0) g/dL RDW (11.5-15.5) % Neutrophils # (1.3-7.7) k/uL Lymphocytes # (1.0-4.8) k/uL Macrocytosis PT (9.0-12.0) sec INR (<1.2) ABG pH (7.35-7.45) ABG pCO2 (35-45) mmHg ABG pO2 (83-108) mmHg ABG Total CO2 (19-24) mmol/L ABG O2 Saturation (94-97) % Sodium (137-145) mmol/L Potassium (3.5-5.1) mmol/L Carbon Dioxide (22-30) mmol/L BUN (9-20) mg/dL Creatinine (0.66-1.25) mg/dL Glucose (74-99) mg/dL POC Glucose (mg/dL) 165 H 186 H 154 H (75-99) mg/dL Magnesium (1.6-2.3) mg/dL Total Protein (6.3-8.2) g/dL Albumin (3.5-5.0) g/dL Urine Protein (Negative) Urine Blood (Negative) Ur Leukocyte Esterase (Negative) Urine RBC (0-5) /hpf Urine WBC (0-5) /hpf Amorphous Sediment (None) /hpf Urine Bacteria (None) /hpf 04/01/20 04/02/20 04/02/20 Range/Units 20:47 06:11 06:34 WBC (3.8-10.6) k/uL RBC (4.30-5.90) m/uL Hgb (13.0-17.5) gm/dL Hct (39.0-53.0) % MCV (80.0-100.0) fL MCHC (31.0-37.0) g/dL RDW (11.5-15.5) % Neutrophils # (1.3-7.7) k/uL Lymphocytes # (1.0-4.8) k/uL Macrocytosis PT 22.9 H (9.0-12.0) sec INR 2.4 H (<1.2) ABG pH (7.35-7.45) ABG pCO2 (35-45) mmHg ABG pO2 (83-108) mmHg ABG Total CO2 (19-24) mmol/L ABG O2 Saturation (94-97) % Sodium (137-145) mmol/L Potassium (3.5-5.1) mmol/L Carbon Dioxide (22-30) mmol/L BUN (9-20) mg/dL Creatinine (0.66-1.25) mg/dL Glucose (74-99) mg/dL POC Glucose (mg/dL) 191 H 135 H (75-99) mg/dL Magnesium (1.6-2.3) mg/dL Total Protein (6.3-8.2) g/dL Albumin (3.5-5.0) g/dL Urine Protein (Negative) Urine Blood (Negative) Ur Leukocyte Esterase (Negative) Urine RBC (0-5) /hpf Urine WBC (0-5) /hpf Amorphous Sediment (None) /hpf Urine Bacteria (None) /hpf 04/02/20 04/02/20 04/02/20 Range/Units 06:34 06:34 06:34 WBC 13.0 H (3.8-10.6) k/uL RBC 2.80 L (4.30-5.90) m/uL Hgb 9.0 L (13.0-17.5) gm/dL Hct 30.6 L (39.0-53.0) % MCV 109.2 H (80.0-100.0) fL MCHC 29.3 L (31.0-37.0) g/dL RDW 18.4 H (11.5-15.5) % Neutrophils # 11.0 H (1.3-7.7) k/uL Lymphocytes # 0.8 L (1.0-4.8) k/uL Macrocytosis Marked A PT (9.0-12.0) sec INR (<1.2) ABG pH (7.35-7.45) ABG pCO2 (35-45) mmHg ABG pO2 (83-108) mmHg ABG Total CO2 (19-24) mmol/L ABG O2 Saturation (94-97) % Sodium 134 L (137-145) mmol/L Potassium 5.8 H (3.5-5.1) mmol/L Carbon Dioxide 20 L (22-30) mmol/L BUN 115 H* (9-20) mg/dL Creatinine 4.43 H (0.66-1.25) mg/dL Glucose 105 H (74-99) mg/dL POC Glucose (mg/dL) (75-99) mg/dL Magnesium 3.0 H (1.6-2.3) mg/dL Total Protein 5.9 L (6.3-8.2) g/dL Albumin 2.9 L (3.5-5.0) g/dL Urine Protein (Negative) Urine Blood (Negative) Ur Leukocyte Esterase (Negative) Urine RBC (0-5) /hpf Urine WBC (0-5) /hpf Amorphous Sediment (None) /hpf Urine Bacteria (None) /hpf 04/02/20 04/02/20 04/02/20 Range/Units 09:41 10:17 10:44 WBC (3.8-10.6) k/uL RBC (4.30-5.90) m/uL Hgb (13.0-17.5) gm/dL Hct (39.0-53.0) % MCV (80.0-100.0) fL MCHC (31.0-37.0) g/dL RDW (11.5-15.5) % Neutrophils # (1.3-7.7) k/uL Lymphocytes # (1.0-4.8) k/uL Macrocytosis PT (9.0-12.0) sec INR (<1.2) ABG pH 7.06 L* (7.35-7.45) ABG pCO2 77 H* (35-45) mmHg ABG pO2 161 H (83-108) mmHg ABG Total CO2 25 H (19-24) mmol/L ABG O2 Saturation 99.4 H (94-97) % Sodium (137-145) mmol/L Potassium (3.5-5.1) mmol/L Carbon Dioxide (22-30) mmol/L BUN (9-20) mg/dL Creatinine (0.66-1.25) mg/dL Glucose (74-99) mg/dL POC Glucose (mg/dL) 155 H (75-99) mg/dL Magnesium (1.6-2.3) mg/dL Total Protein (6.3-8.2) g/dL Albumin (3.5-5.0) g/dL Urine Protein 2+ H (Negative) Urine Blood Small H (Negative) Ur Leukocyte Esterase Small H (Negative) Urine RBC 21 H (0-5) /hpf Urine WBC 19 H (0-5) /hpf Amorphous Sediment Few H (None) /hpf Urine Bacteria Occasional H (None) /hpf Microbiology - Last 24 Hours (Table) 03/30/20 10:26 Blood Culture - Preliminary Blood No Growth after 48 hours Assessment and Plan Assessment: 74-year-old male with history of high-grade T1 bladder cancer, status post TURBT and BCG. He was lost to follow-up due to COVID. Was admitted for a hip fracture, urology was called for penile erosions injury secondary to Clinton catheter. At that time the catheter was removed. Urology was called back today for worsening kidney function and low urine output. Plan: -Clinton was resinserted for his ANNETTA, we'll continue to monitor urine output. Given his history of penile erosion we'll remove the catheter were no longer needed -Renal ultrasound to rule out hydronephrosis as the cause of his ANNETTA
[2020-04-02] MEDS: HYDROCORTISONE SUCCINATE 100 MG/2 ML VIAL IV SCH ×2 (11:48→15:43)
--- NOTE | 2020-04-02 11:58 | PN ---
PROGRESS NOTE Mr. Brady is a 74-year-old male who was admitted to the hospital on March 17, 2020 with sepsis. He has a history of atrial fibrillation, permanent pacemaker implantation, coronary disease SI take away, aortic valve replacement. He came in with worsening renal function and evidence of sepsis. He has been having the worsening renal function and worsening mental status. Today, he became obtunded. He was hypotensive. He was evaluated by Dr. Gomez and a CVP line is being inserted. The patient is being transferred to the ICU for further treatment and management. He had an echocardiogram performed this morning that showed ejection fraction of 50% to 55% with mild mitral regurgitation, severe tricuspid regurgitation with no evidence of pulmonary hypertension. The patient has been hypotensive for few days running in the 80-90, but early this morning was down to the 60s. He was started on Solu-Cortef. He is on Namenda, metoprolol succinate 50 mg daily, Flagyl and he is on Coumadin. PHYSICAL EXAMINATION: He is a 74-year-old male of distended of blood pressure earlier running in the 80s and 70s. Afebrile now. Blood pressure 104 after IV fluid and Levophed. LUNGS: Clear anteriorly. HEART: S1, S2. No S3. No rub appreciated with a systolic murmur, no diastolic murmur. ABDOMEN: Soft, nontender. EXTREMITIES: +1 to 2 edema bilaterally. LAB DATA: Revealed a BUN and creatinine of 115 and 4.4, potassium 5.8, hemoglobin of 9.0. PH 7.06, pCO2 76, PO2 of 161. IMPRESSION: 1. Progressive change in mental status with evidence of sepsis and hypotension, patient is acidotic. 2. History of coronary disease. 3. Atrial fibrillation. 4. Worsening renal function. 5. Hypothermia. 6. Penile erosion. 7. Nonhealing wounds. 8. Dementia. 9. History of CVA. RECOMMENDATION: Patient will be transferred to the ICU. He will continue to receive Levophed and IV fluid. His antibiotics regimen will be adjusted and depending on his progress, further adjustment will be made. The prognosis remains guarded. MMODL / IJN: [id number] /
[2020-04-02 12:01] LABS: Glucose,Whole Blood 123 mg/dL (75-99)
--- NOTE | 2020-04-02 12:23 | US ---
EXAMINATION TYPE: US kidneys/renal and bladder DATE OF EXAM: 04/02/2020 COMPARISON: 03/06/2020 CLINICAL HISTORY: Hematuria. EXAM MEASUREMENTS: Right Kidney: 11.2 x 7.0 x 6.0 cm Left Kidney: 12.1 x 6.6 x 56.6 cm Gross morbid obesity, severe interstitial edema, technically difficult very limited exam. Right Kidney: not well visualized Left Kidney: No hydronephrosis or masses seen, kidney heterogeneous . No obvious hydronephrosis or n ephrolithiasis. Bladder: not seen IMPRESSION: 1. The right kidney is not seen and is nondiagnostic. 2. Left kidney is somewhat heterogeneous which is nonspecific, could be seen with pyelonephritis kelsy elate with urinalysis. No obvious hydronephrosis or nephrolithiasis.
[2020-04-02 12:39] LABS: ABG Base Excess -8.6 mmol/L; ABG HCO3 21 mmol/L (21-25); ABG Oxygen Saturation 92.5 % (94-97); ABG PO2 80 mmHg (83-108); ABG TCO2 24 mmol/L (19-24); Allen Test Performed? Yes
[2020-04-02 12:41] LABS: Albumin 2.6 g/dL (3.5-5.0); Calcium 7.8 mg/dL (8.4-10.2); Potassium 5.7 mmol/L (3.5-5.1); Total Bilirubin 0.8 mg/dL (0.2-1.3); Total Protein 5.6 g/dL (6.3-8.2)
[2020-04-02 12:42] LABS: ABG PCO2 71 mmHg (35-45)
[2020-04-02] MEDS ORDERED: SODIUM BICARB 8.4% 50 ML SYR (1 MEQ/ML) IV STA (12:50)
[2020-04-02 12:51] LABS: Anisocytosis Slight; HCT 30.1 % (39.0-53.0); HGB 8.8 gm/dL (13.0-17.5); Hypochromasia Marked; MCH 32.1 pg (25.0-35.0); MCHC 29.2 g/dL (31.0-37.0); MCV 109.8 fL (80.0-100.0); Macrocytosis Marked; Platelet Count 171 k/uL (150-450); Poikilocytosis Moderate; RBC 2.74 m/uL (4.30-5.90); RDW 18.4 % (11.5-15.5)
[2020-04-02 13:16] LABS: Eosinophils # (M) 0.14 k/uL (0-0.7); Lymphocytes # (M) 0.41 k/uL (1.0-4.8); Monocytes # (M) 0.41 k/uL (0-1.0); Myelocytes # (M) 0.14 k/uL (0); Myelocytes % 1 %; Neutrophils % (M) 93 %; Nucleated Red Blood Cells 1 /100 WBC (0-0); Total Cells Counted 200
[2020-04-02 13:17] LABS: Neutrophils # (M) 12.65 k/uL (1.3-7.7); Polychromasia Present; WBC 13.6 k/uL (3.8-10.6)
[2020-04-02 13:59] LABS: Glucose,Whole Blood 119 mg/dL (75-99)
[2020-04-02 15:02] LABS: ABG Base Excess -7.5 mmol/L; ABG HCO3 22 mmol/L (21-25); ABG Oxygen Saturation 96.6 % (94-97); ABG PO2 100 mmHg (83-108); ABG TCO2 24 mmol/L (19-24)
[2020-04-02 15:05] LABS: ABG PCO2 72 mmHg (35-45)
[2020-04-02 15:06] LABS: Allen Test Performed? Yes
--- NOTE | 2020-04-02 15:17 | P.PN ---
Subjective Progress Note Date: 04/02/20 Sepsis secondary to penile erosion with secondary cellulitis On 04/02/2020, the patient got transferred to the intensive care unit. Earlier this morning, the patient was found to be hypothermic, hypotensive and the patient also having diminished level of consciousness. I saw the patient and I noted that the patient is also developed an acute kidney injury in the creatinine has been on a gradual rise over the past few days is currently up to 4.52. An immediate blood gases was done and the patient was found to have severe asked her acidosis. PH was at 7. 06 with a pCO2 of 77 acute of 161. At that point, the patient was placed on a BiPAP and BiPAP pressures were at 14/6 cm of water and FiO2 is being titrated to maintain a saturation above 90%. Subsequent blood gases showed some limited improvement with a pH of 7.09 and a pCO2 of 72 and pO2 of 99. The patient has significant diminished level of consciousness. He looks quite lethargic and obtunded. I contacted the . We radiatio for the need for intubation mechanical ventilation. The wanted to come to the hospital discussed this matter further. As such the patient is currently on a BiPAP for respiratory support. The patient was given a liter of IV fluids on the floor with normal saline and currently the patient is receiving IV fluids at the rate of 75 mL an hour. The patient was also started on norepinephrine infusion for blood pressure support. Antibiotic modification was done and the patient was started on IV Merrem in combination to Flagyl and daptomycin. His cardiac rhythm is sinus and the patient is having frequent PACs. INR therapeutic for now as the patient is on long-term articulation with warfarin. Note that the patient had a penile ulcer/infection with secondary cellulitis. The cultures were obtained earlier showed MRSA and Enterobacter and MRSA was also cultured and the blood on 03/17/2020. In addition to that the patient positive cultures for Proteus mirabilis in the urine from 03/17/2020. Anaerobes are also cultured from the penile wound. Most recent temperature is 94.4. Nephrology is on the case regarding acute kidney injury and the patient is oliguric and the patient is being considered for hemodialysis at this point in time. He is morbidly obese and he carries a BMI 53. Objective - Vital Signs Vital signs: Vital Signs Temp 96.1 F L 04/02/20 04:00 Pulse 60 04/02/20 04:00 Resp 18 04/02/20 04:00 BP 86/49 04/02/20 04:00 Pulse Ox 94 L 04/02/20 04:00 Intake & Output 04/01/20 04/02/20 04/02/20 18:59 06:59 18:59 Intake Total 450 Output Total 0 Balance 450 Weight 123 kg Intake: Oral 450 Output: Urine 0 Other: Voiding Method Diaper # Voids 0 1 # Bowel Movements 1 1 - Exam GENERAL EXAM: Diminished level of consciousness and the patient is obtunded and somnolent 74-year-old white male, lethargic, obtunded and the patient is Currently on BiPAP and he is able tolerate the BiPAP without any major difficulties. Seems to be quite tachypneic. He is not using excessive muscle breathing. HEAD: Normocephalic/atraumatic. EYES: Normal reaction of pupils, equal size. Conjunctiva pink, sclera white. NOSE: Clear with pink turbinates. THROAT: No erythema or exudates. NECK: No masses, no JVD, no thyroid enlargement, no adenopathy. CHEST: No chest wall deformity. Symmetrical expansion. LUNGS: Equal air entry with bibasilar crackles. The patient is currently on BiPAP for respiratory support. CVS: Regular rate and rhythm, normal S1 and S2, no gallops, no murmurs, no rubs ABDOMEN: Soft, nontender. No hepatosplenomegaly, normal bowel sounds, no guarding or rigidity. The patient has a large anterior abdominal wound from previous abdominal surgeries. EXTREMITIES: No clubbing, there is edema bilaterally and the patient has chronic wounds and ulcerations in addition to that there is diminished pulses in all 4 extremities. The penile also seems to be improving and there is no purulent drainage at this point in time and the patient has no scrotal cellulitis. There is evidence of scrotal edema. MUSCULOSKELETAL: Muscle tone is markedly diminished in all 4 extremities. SPINE: No scoliosis or deformity SKIN: Bilateral abdominal ulcerations, and maceration with excoriation, left medial calcaneal ulceration CENTRAL NERVOUS SYSTEM: Drowsy but arousable No focal deficits, tone and strength is diminished in all 4 extremities. - Labs CBC & Chem 7: 04/02/20 12:29 04/02/20 12:29 Labs: Abnormal Lab Results - Last 24 Hours (Table) 04/01/20 04/01/20 04/01/20 Range/Units 07:44 12:13 17:14 WBC 12.1 H (3.8-10.6) k/uL RBC (4.30-5.90) m/uL Hgb (13.0-17.5) gm/dL Hct (39.0-53.0) % MCV (80.0-100.0) fL MCHC (31.0-37.0) g/dL RDW (11.5-15.5) % Neutrophils # (1.3-7.7) k/uL Neutrophils # (Manual) 10.40 H (1.3-7.7) k/uL Lymphocytes # (1.0-4.8) k/uL Lymphocytes # (Manual) 0.61 L (1.0-4.8) k/uL Myelocytes # (Manual) 0.12 H (0) k/uL Nucleated RBCs 2 H (0-0) /100 WBC Macrocytosis PT (9.0-12.0) sec INR (<1.2) Sodium (137-145) mmol/L Potassium (3.5-5.1) mmol/L Carbon Dioxide (22-30) mmol/L BUN (9-20) mg/dL Creatinine (0.66-1.25) mg/dL Glucose (74-99) mg/dL POC Glucose (mg/dL) 165 H 186 H (75-99) mg/dL Total Protein (6.3-8.2) g/dL Albumin (3.5-5.0) g/dL 04/01/20 04/01/20 04/02/20 Range/Units 17:29 20:47 06:11 WBC (3.8-10.6) k/uL RBC (4.30-5.90) m/uL Hgb (13.0-17.5) gm/dL Hct (39.0-53.0) % MCV (80.0-100.0) fL MCHC (31.0-37.0) g/dL RDW (11.5-15.5) % Neutrophils # (1.3-7.7) k/uL Neutrophils # (Manual) (1.3-7.7) k/uL Lymphocytes # (1.0-4.8) k/uL Lymphocytes # (Manual) (1.0-4.8) k/uL Myelocytes # (Manual) (0) k/uL Nucleated RBCs (0-0) /100 WBC Macrocytosis PT (9.0-12.0) sec INR (<1.2) Sodium (137-145) mmol/L Potassium (3.5-5.1) mmol/L Carbon Dioxide (22-30) mmol/L BUN (9-20) mg/dL Creatinine (0.66-1.25) mg/dL Glucose (74-99) mg/dL POC Glucose (mg/dL) 154 H 191 H 135 H (75-99) mg/dL Total Protein (6.3-8.2) g/dL Albumin (3.5-5.0) g/dL 04/02/20 04/02/20 04/02/20 Range/Units 06:34 06:34 06:34 WBC 13.0 H (3.8-10.6) k/uL RBC 2.80 L (4.30-5.90) m/uL Hgb 9.0 L (13.0-17.5) gm/dL Hct 30.6 L (39.0-53.0) % MCV 109.2 H (80.0-100.0) fL MCHC 29.3 L (31.0-37.0) g/dL RDW 18.4 H (11.5-15.5) % Neutrophils # 11.0 H (1.3-7.7) k/uL Neutrophils # (Manual) (1.3-7.7) k/uL Lymphocytes # 0.8 L (1.0-4.8) k/uL Lymphocytes # (Manual) (1.0-4.8) k/uL Myelocytes # (Manual) (0) k/uL Nucleated RBCs (0-0) /100 WBC Macrocytosis Marked A PT 22.9 H (9.0-12.0) sec INR 2.4 H (<1.2) Sodium 134 L (137-145) mmol/L Potassium 5.8 H (3.5-5.1) mmol/L Carbon Dioxide 20 L (22-30) mmol/L BUN 115 H* (9-20) mg/dL Creatinine 4.43 H (0.66-1.25) mg/dL Glucose 105 H (74-99) mg/dL POC Glucose (mg/dL) (75-99) mg/dL Total Protein 5.9 L (6.3-8.2) g/dL Albumin 2.9 L (3.5-5.0) g/dL 04/02/20 Range/Units 09:41 WBC (3.8-10.6) k/uL RBC (4.30-5.90) m/uL Hgb (13.0-17.5) gm/dL Hct (39.0-53.0) % MCV (80.0-100.0) fL MCHC (31.0-37.0) g/dL RDW (11.5-15.5) % Neutrophils # (1.3-7.7) k/uL Neutrophils # (Manual) (1.3-7.7) k/uL Lymphocytes # (1.0-4.8) k/uL Lymphocytes # (Manual) (1.0-4.8) k/uL Myelocytes # (Manual) (0) k/uL Nucleated RBCs (0-0) /100 WBC Macrocytosis PT (9.0-12.0) sec INR (<1.2) Sodium (137-145) mmol/L Potassium (3.5-5.1) mmol/L Carbon Dioxide (22-30) mmol/L BUN (9-20) mg/dL Creatinine (0.66-1.25) mg/dL Glucose (74-99) mg/dL POC Glucose (mg/dL) 155 H (75-99) mg/dL Total Protein (6.3-8.2) g/dL Albumin (3.5-5.0) g/dL Microbiology - Last 24 Hours (Table) 03/30/20 10:26 Blood Culture - Preliminary Blood No Growth after 48 hours Assessment and Plan Plan: 1Septic shock. The patient is currently hypothermic and hypotensive and an underlying septic shock is highly suspected. The patient was started on IV fluids and pressors on the medical floor. A triple lumen catheter was inserted and the patient will be transitioned to the intensive care unit. 2 acute hypoxic/hypercapnic respiratory failure. The patient has acute respiratory acidosis. The patient is currently on BiPAP for respiratory support. The chest x-ray showing diffuse pleural parenchymal changes could be on the basis of CHF as the patient has some bilateral pleural effusion and cardiomegaly and bibasilar pulmonary infiltrates. There is also diffuse interstitial pattern. 3 Penile erosion secondary to catheter with suspected infection with secondary cellulitis, Wound cultures showed MRSA, Enterobacter cloacae in addition to anaerobes. 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 history of aortic valve replacement 12 history of hypertension 13 obstructive sleep apnea. 14 history of pacemaker insertion for symptomatically bradycardia 15 COPD currently on room air oxygen with a pulse ox of 94% 16. chronic anemia 17. hyperlipidemia 18. history of previous CVA with expressive aphasia 19 BPH 20 chronic anemia, multifactorial, Plan Transfer this patient to the intensive care unit Broad-spectrum antibiotic coverage and add IV Merrem in addition to daptomycin and Flagyl Revealed blood cultures Continue IV fluids and initiate pressors for hemodynamic support Triple lumen catheter was established Continue stress dose hydrocortisone 100 mg every 8 hours of the patient's baseline serum cortisol level was low Continue BiPAP for respiratory support Likely need intubation if the family is agreeable Consult nephrology and the patient may likely need dialysis specially with ongoing renal failure, fluid overload, and acidosis. The patient is oliguric and there is progressive rise in the creatinine. We'll discuss this with nephrology. Ultrasound the kidneys we will also done to rule out hydronephrosis. We'll continue to follow. Condition is critical at this point in time. This evaluation was done more than 30 minutes. Time with Patient: Greater than 30
--- NOTE | 2020-04-02 15:18 | P.PCN ---
Date of Procedure: 04/02/20 Preoperative Diagnosis: Hypotension, sepsis Postoperative Diagnosis: Hypotension, sepsis Procedure(s) Performed: Central line insertion Anesthesia: local Surgeon: Edelmira Gomez Estimated Blood Loss (ml): 0 Pathology: other Condition: stable Disposition: ICU Operative Findings: Indication: Hemodynamic monitoring/Intravenous access. A time-out was completed verifying correct patient, procedure, site, positioning, and implant(s) or special equipment if applicable. The patient was placed in a dependent position appropriate for central line placement based on the vein to be cannulated. The patients left neck was prepped and draped in sterile fashion. 1% Lidocaine was used to anesthetize the surrounding skin area. A triple lumen 9F Cordis catheter was introduced into the left internal jugular or common femoral] vein using Seldinger technique. The catheter was threaded smoothly over the guide wire and appropriate blood return was obtained. Each lumen of the catheter was evacuated of air and flushed with sterile saline. The catheter was then sutured in place to the skin and a sterile dressing applied. Perfusion to the extremity distal to the point of catheter insertion was checked and found to be adequate. The patient tolerated the procedure well and there were no complications.
[2020-04-02] MEDS ORDERED: PHYTONADIONE 10 MG in SODIUM CHLORIDE 0.9% 50 ML IVPB STA (15:22)
--- NOTE | 2020-04-02 15:32 | P.PN ---
Subjective Patient is seen in follow-up for acute kidney injury. Patient's renal function did improve initially upon admission but the last few days as been worsening again. Creatinine up to 4.5 this morning. This morning patient was hypotensive and was subsequently transferred to the intensive care unit. He is currently on BiPAP. He is on 35 mics of Levophed. He is also on stress dose steroids. Clinton catheter was reinserted. Minimal urine obtained upon insertion. present at bedside. Vital signs: Currently on Levophed. Heart rate stable. General: The patient appeared well nourished and normally developed. On BiPAP. HEENT: Head exam is unremarkable. LUNGS: Breath sounds decreased. HEART: Rate and Rhythm are regular. ABDOMEN: Soft, nontender. Obese. EXTREMITITES: 3+ edema. Objective - Vital Signs Vital signs: Vital Signs Temp 94.4 F L 04/02/20 14:00 Pulse 60 04/02/20 14:20 Resp 20 04/02/20 14:20 BP 92/35 04/02/20 14:20 Pulse Ox 100 04/02/20 14:20 Intake & Output 04/01/20 04/02/20 04/02/20 18:59 06:59 18:59 Intake Total 450 2122.160 Output Total 0 20 Balance 450 2102.160 Weight 123 kg 182.3 kg Intake: IV 2100 Sodium Chloride 0.9% 1, 2100 000 ml @ 999 mls/hr IV . Q1H1M ONE Rx#:[id number] Intake, IV Titration 22.160 Amount Norepinephrine 32 mg In 22.160 Sodium Chloride 0.9% 218 ml @ 0.05 MCG/KG/MIN 2. 883 mls/hr IV .Q24H [facility] Rx#:[id number] Oral 450 Output: Urine 0 20 Other: Voiding Method Diaper Indwelling Catheter # Voids 0 1 # Bowel Movements 1 1 - Labs CBC & Chem 7: 04/02/20 12:29 04/02/20 12:29 Labs: Abnormal Lab Results - Last 24 Hours (Table) 04/01/20 04/01/20 04/01/20 Range/Units 17:14 17:29 20:47 WBC (3.8-10.6) k/uL RBC (4.30-5.90) m/uL Hgb (13.0-17.5) gm/dL Hct (39.0-53.0) % MCV (80.0-100.0) fL MCHC (31.0-37.0) g/dL RDW (11.5-15.5) % Neutrophils # (1.3-7.7) k/uL Neutrophils # (Manual) (1.3-7.7) k/uL Lymphocytes # (1.0-4.8) k/uL Lymphocytes # (Manual) (1.0-4.8) k/uL Myelocytes # (Manual) (0) k/uL Nucleated RBCs (0-0) /100 WBC Macrocytosis PT (9.0-12.0) sec INR (<1.2) ABG pH (7.35-7.45) ABG pCO2 (35-45) mmHg ABG pO2 (83-108) mmHg ABG Total CO2 (19-24) mmol/L ABG O2 Saturation (94-97) % Sodium (137-145) mmol/L Potassium (3.5-5.1) mmol/L Carbon Dioxide (22-30) mmol/L BUN (9-20) mg/dL Creatinine (0.66-1.25) mg/dL Glucose (74-99) mg/dL POC Glucose (mg/dL) 186 H 154 H 191 H (75-99) mg/dL Calcium (8.4-10.2) mg/dL Magnesium (1.6-2.3) mg/dL Total Protein (6.3-8.2) g/dL Albumin (3.5-5.0) g/dL Urine Protein (Negative) Urine Blood (Negative) Ur Leukocyte Esterase (Negative) Urine RBC (0-5) /hpf Urine WBC (0-5) /hpf Amorphous Sediment (None) /hpf Urine Bacteria (None) /hpf 04/02/20 04/02/20 04/02/20 Range/Units 06:11 06:34 06:34 WBC 13.0 H (3.8-10.6) k/uL RBC 2.80 L (4.30-5.90) m/uL Hgb 9.0 L (13.0-17.5) gm/dL Hct 30.6 L (39.0-53.0) % MCV 109.2 H (80.0-100.0) fL MCHC 29.3 L (31.0-37.0) g/dL RDW 18.4 H (11.5-15.5) % Neutrophils # 11.0 H (1.3-7.7) k/uL Neutrophils # (Manual) (1.3-7.7) k/uL Lymphocytes # 0.8 L (1.0-4.8) k/uL Lymphocytes # (Manual) (1.0-4.8) k/uL Myelocytes # (Manual) (0) k/uL Nucleated RBCs (0-0) /100 WBC Macrocytosis Marked A PT 22.9 H (9.0-12.0) sec INR 2.4 H (<1.2) ABG pH (7.35-7.45) ABG pCO2 (35-45) mmHg ABG pO2 (83-108) mmHg ABG Total CO2 (19-24) mmol/L ABG O2 Saturation (94-97) % Sodium (137-145) mmol/L Potassium (3.5-5.1) mmol/L Carbon Dioxide (22-30) mmol/L BUN (9-20) mg/dL Creatinine (0.66-1.25) mg/dL Glucose (74-99) mg/dL POC Glucose (mg/dL) 135 H (75-99) mg/dL Calcium (8.4-10.2) mg/dL Magnesium (1.6-2.3) mg/dL Total Protein (6.3-8.2) g/dL Albumin (3.5-5.0) g/dL Urine Protein (Negative) Urine Blood (Negative) Ur Leukocyte Esterase (Negative) Urine RBC (0-5) /hpf Urine WBC (0-5) /hpf Amorphous Sediment (None) /hpf Urine Bacteria (None) /hpf 04/02/20 04/02/20 04/02/20 Range/Units 06:34 06:34 09:41 WBC (3.8-10.6) k/uL RBC (4.30-5.90) m/uL Hgb (13.0-17.5) gm/dL Hct (39.0-53.0) % MCV (80.0-100.0) fL MCHC (31.0-37.0) g/dL RDW (11.5-15.5) % Neutrophils # (1.3-7.7) k/uL Neutrophils # (Manual) (1.3-7.7) k/uL Lymphocytes # (1.0-4.8) k/uL Lymphocytes # (Manual) (1.0-4.8) k/uL Myelocytes # (Manual) (0) k/uL Nucleated RBCs (0-0) /100 WBC Macrocytosis PT (9.0-12.0) sec INR (<1.2) ABG pH (7.35-7.45) ABG pCO2 (35-45) mmHg ABG pO2 (83-108) mmHg ABG Total CO2 (19-24) mmol/L ABG O2 Saturation (94-97) % Sodium 134 L (137-145) mmol/L Potassium 5.8 H (3.5-5.1) mmol/L Carbon Dioxide 20 L (22-30) mmol/L BUN 115 H* (9-20) mg/dL Creatinine 4.43 H (0.66-1.25) mg/dL Glucose 105 H (74-99) mg/dL POC Glucose (mg/dL) 155 H (75-99) mg/dL Calcium (8.4-10.2) mg/dL Magnesium 3.0 H (1.6-2.3) mg/dL Total Protein 5.9 L (6.3-8.2) g/dL Albumin 2.9 L (3.5-5.0) g/dL Urine Protein (Negative) Urine Blood (Negative) Ur Leukocyte Esterase (Negative) Urine RBC (0-5) /hpf Urine WBC (0-5) /hpf Amorphous Sediment (None) /hpf Urine Bacteria (None) /hpf 04/02/20 04/02/20 04/02/20 Range/Units 10:17 10:44 11:59 WBC (3.8-10.6) k/uL RBC (4.30-5.90) m/uL Hgb (13.0-17.5) gm/dL Hct (39.0-53.0) % MCV (80.0-100.0) fL MCHC (31.0-37.0) g/dL RDW (11.5-15.5) % Neutrophils # (1.3-7.7) k/uL Neutrophils # (Manual) (1.3-7.7) k/uL Lymphocytes # (1.0-4.8) k/uL Lymphocytes # (Manual) (1.0-4.8) k/uL Myelocytes # (Manual) (0) k/uL Nucleated RBCs (0-0) /100 WBC Macrocytosis PT (9.0-12.0) sec INR (<1.2) ABG pH 7.06 L* (7.35-7.45) ABG pCO2 77 H* (35-45) mmHg ABG pO2 161 H (83-108) mmHg ABG Total CO2 25 H (19-24) mmol/L ABG O2 Saturation 99.4 H (94-97) % Sodium (137-145) mmol/L Potassium (3.5-5.1) mmol/L Carbon Dioxide (22-30) mmol/L BUN (9-20) mg/dL Creatinine (0.66-1.25) mg/dL Glucose (74-99) mg/dL POC Glucose (mg/dL) 123 H (75-99) mg/dL Calcium (8.4-10.2) mg/dL Magnesium (1.6-2.3) mg/dL Total Protein (6.3-8.2) g/dL Albumin (3.5-5.0) g/dL Urine Protein 2+ H (Negative) Urine Blood Small H (Negative) Ur Leukocyte Esterase Small H (Negative) Urine RBC 21 H (0-5) /hpf Urine WBC 19 H (0-5) /hpf Amorphous Sediment Few H (None) /hpf Urine Bacteria Occasional H (None) /hpf 04/02/20 04/02/20 04/02/20 Range/Units 12:29 12:29 12:37 WBC 13.6 H (3.8-10.6) k/uL RBC 2.74 L (4.30-5.90) m/uL Hgb 8.8 L (13.0-17.5) gm/dL Hct 30.1 L (39.0-53.0) % MCV 109.8 H (80.0-100.0) fL MCHC 29.2 L (31.0-37.0) g/dL RDW 18.4 H (11.5-15.5) % Neutrophils # (1.3-7.7) k/uL Neutrophils # (Manual) 12.65 H (1.3-7.7) k/uL Lymphocytes # (1.0-4.8) k/uL Lymphocytes # (Manual) 0.41 L (1.0-4.8) k/uL Myelocytes # (Manual) 0.14 H (0) k/uL Nucleated RBCs 1 H (0-0) /100 WBC Macrocytosis Marked A PT (9.0-12.0) sec INR (<1.2) ABG pH 7.08 L* (7.35-7.45) ABG pCO2 71 H* (35-45) mmHg ABG pO2 80 L (83-108) mmHg ABG Total CO2 (19-24) mmol/L ABG O2 Saturation 92.5 L (94-97) % Sodium 134 L (137-145) mmol/L Potassium 5.7 H (3.5-5.1) mmol/L Carbon Dioxide (22-30) mmol/L BUN 112 H* (9-20) mg/dL Creatinine 4.52 H (0.66-1.25) mg/dL Glucose 103 H (74-99) mg/dL POC Glucose (mg/dL) (75-99) mg/dL Calcium 7.8 L (8.4-10.2) mg/dL Magnesium (1.6-2.3) mg/dL Total Protein 5.6 L (6.3-8.2) g/dL Albumin 2.6 L (3.5-5.0) g/dL Urine Protein (Negative) Urine Blood (Negative) Ur Leukocyte Esterase (Negative) Urine RBC (0-5) /hpf Urine WBC (0-5) /hpf Amorphous Sediment (None) /hpf Urine Bacteria (None) /hpf 04/02/20 04/02/20 Range/Units 13:58 14:49 WBC (3.8-10.6) k/uL RBC (4.30-5.90) m/uL Hgb (13.0-17.5) gm/dL Hct (39.0-53.0) % MCV (80.0-100.0) fL MCHC (31.0-37.0) g/dL RDW (11.5-15.5) % Neutrophils # (1.3-7.7) k/uL Neutrophils # (Manual) (1.3-7.7) k/uL Lymphocytes # (1.0-4.8) k/uL Lymphocytes # (Manual) (1.0-4.8) k/uL Myelocytes # (Manual) (0) k/uL Nucleated RBCs (0-0) /100 WBC Macrocytosis PT (9.0-12.0) sec INR (<1.2) ABG pH 7.10 L* (7.35-7.45) ABG pCO2 72 H* (35-45) mmHg ABG pO2 (83-108) mmHg ABG Total CO2 (19-24) mmol/L ABG O2 Saturation (94-97) % Sodium (137-145) mmol/L Potassium (3.5-5.1) mmol/L Carbon Dioxide (22-30) mmol/L BUN (9-20) mg/dL Creatinine (0.66-1.25) mg/dL Glucose (74-99) mg/dL POC Glucose (mg/dL) 119 H (75-99) mg/dL Calcium (8.4-10.2) mg/dL Magnesium (1.6-2.3) mg/dL Total Protein (6.3-8.2) g/dL Albumin (3.5-5.0) g/dL Urine Protein (Negative) Urine Blood (Negative) Ur Leukocyte Esterase (Negative) Urine RBC (0-5) /hpf Urine WBC (0-5) /hpf Amorphous Sediment (None) /hpf Urine Bacteria (None) /hpf Microbiology - Last 24 Hours (Table) 04/02/20 10:17 Urine Culture - Preliminary Urine,Voided 03/30/20 10:26 Blood Culture - Preliminary Blood No Growth after 72 hours Assessment and Plan Plan: Assessment: 1. Acute kidney injury secondary to ATN secondary to septic shock. Creatinine 4.52 today. No evidence of urinary retention. No clear hydronephrosis noted on kidney ultrasound. 2. Hyperkalemia secondary to acute kidney injury. 3. Septic shock maintained on Levophed and stress dose steroids. Low dose cosyntropin stimulation test was done earlier this admission and a cortisol level did rise post stimulation; however he was started on Cortef due to persistent hypotension. 4. Volume overload. 5. Acute hypercapnic respiratory failure. Currently on BiPAP, 100% FiO2. 6. Penile erosion. Urology following. 7. Plan: Decreased rate of IV fluids. Add Lasix 80 mg IV twice daily. Discussed with the the need to start renal replacement therapy due to severe volume overload, low urine output and hyperkalemia. I did discuss with her at the patient is on Levophed and due to hemodynamic instability he may not be able to tolerate it. She understands and is willing to proceed. She did mention that she will consider comfort measures if his health doesn't improve over the next couple of days. Consult vascular surgery for dialysis catheter placement. Repeat potassium level this evening.
--- NOTE | 2020-04-02 17:48 | P.GSCN ---
History of Present Illness History of present illness: This is 74-year-old gentleman I was consulted for placement of urgent dialysis catheter. Patient has history of A. fib on Coumadin INR was greater than 2 we gave vitamin K 10 mg piggyback. Patient has history of COPD, renal failure, sleep apnea, patient had a aortic valve replaced in the past. Patient has a obesity left IJ has a triple-lumen catheter cannot access the groin because of superobesity and a patient has a very fragile skin Neck is supple there's a triple-lumen catheter left IJ Chest crackles bilateral Abdomen nontender Vascular there is are 1+ Plan is placement of the dialysis catheter right jugular approach with ultrasound-guided risk and complication discussed Past Medical History Past Medical History: Atrial Fibrillation, Heart Failure, COPD, Dementia, Hypertension, Myocardial Infarction ([place]), Osteoarthritis (OA), Sleep Apnea/CPAP/BIPAP Additional Past Medical History / Comment(s): Dementia, COPD, history of aortic valve replacement, history of atrial fibrillation, history of symptomatic bradycardia requiring a pacemaker insertion, hypertension, osteoarthritis, obstructive sleep apnea, urinary retention currently has an indwelling Clinton catheter in place, exposure to agent orange Last Myocardial Infarction Date:: unsure History of Any Multi-Drug Resistant Organisms: ESBL, MRSA Year Discovered:: 03/17/20 MRSA ESBL 03/17/20 MDRO Source:: ESBL URINE GROIN MRSA Past Surgical History: Cholecystectomy, Hernia Repair, Joint Replacement, Pacemaker Additional Past Surgical History / Comment(s): Aortic valve replacement, Bilat cataract surgery, left knee replacement. hernia surgery Past Anesthesia/Blood Transfusion Reactions: No Reported Reaction Type of Cardiac Device: Permanent Pacemaker Device Placement Date:: 2016 Past Psychological History: Anxiety Additional Psychological History / Comment(s): dementia Smoking Status: Never smoker Past Alcohol Use History: None Reported Additional Past Alcohol Use History / Comment(s): starting smoking age 21, 2ppd quit 2009 Past Drug Use History: None Reported - Past Family History Mother Family Medical History: Cancer Additional Family Medical History / Comment(s): breast cancer Sister(s) Family Medical History: Cancer, Myocardial Infarction ([place]) Father Family Medical History: Myocardial Infarction ([place]) Medications and Allergies Home Medications Medication Instructions Recorded Confirmed Type Cholecalciferol [Vitamin D3 (25 2,000 unit PO DAILY@0700 04/19/17 03/17/20 History Mcg = 1000 Iu)] Donepezil [Aricept] 10 mg PO DAILY@199904/19/17 03/17/20 History Ferrous Sulfate [Iron (65 MG 325 mg PO DAILY@0700 04/19/17 03/17/20 History Elemental)] Memantine HCl [Namenda Xr] 28 mg PO DAILY@1200 04/19/17 03/17/20 History Albuterol Sulfate [Proventil Hfa] 1 puff INHALATION RT-Q4H PRN 11/10/18 03/17/20 History Budesonide/Formoterol Fumarate 2 puff INHALATION RT-BID@0800,1600 11/10/18 03/17/20 History [Symbicort 160-4.5 Mcg Inhaler] Acetaminophen Tab [Tylenol] 650 mg PO Q6HR PRN tab 03/09/20 03/17/20 Rx oxyCODONE-APAP 5-325MG [Percocet 1 each PO Q4HR PRN tab 03/09/20 03/17/20 Rx 5-325 mg] Clotrimazole/Betamethasone Dip 1 applic TOPICAL BID 03/17/20 03/17/20 History [Lotrisone Cream] Magnesium Oxide [Mag-Ox] 400 mg PO DAILY@0703/17/20 03/17/20 History Metoprolol Succinate (ER) [Toprol 50 mg PO DAILY@69903/17/20 03/17/20 History XL] Pantoprazole [Protonix] 40 mg PO DAILY@0603/17/20 03/17/20 History Tamsulosin [Flomax] 0.4 mg PO DAILY@199903/17/20 03/17/20 History Fluconazole [Diflucan] 200 mg PO DAILY 7 Days #0 tab 03/28/20 Rx Furosemide [Lasix] 40 mg PO BID 30 Days #30 tablet 03/28/20 Rx Hydrocortisone [Cortef] 10 mg PO BID tab 03/28/20 Rx Warfarin [Coumadin] 2.5 mg PO DAILY 7 Days #7 tab 03/28/20 Rx buPROPion SR [Wellbutrin SR] 150 mg PO DAILY tablet.er 03/28/20 Rx DAPTOmycin [Daptomycin] 1,000 mg IV DAILY #7 vial 03/29/20 Rx metroNIDAZOLE [Flagyl] 500 mg PO Q8HR #21 tab 03/29/20 Rx Allergies Allergy/AdvReac Type Severity Reaction Status Date / Time amoxicillin Allergy Rash/Hives Verified 03/17/20 16:14 Penicillins Allergy Rash/Hives Verified 03/17/20 16:14 Surgical - Exam Vital Signs Temp Pulse Resp BP Pulse Ox 97.5 F L 65 18 83/41 96 03/17/20 13:06 03/17/20 13:06 03/17/20 13:06 03/17/20 13:06 03/17/20 13:06 Results - Labs 04/02/20 12:29 04/02/20 12:29 Abnormal Lab Results - Last 24 Hours (Table) 04/01/20 04/02/20 04/02/20 Range/Units 20:47 06:11 06:34 WBC (3.8-10.6) k/uL RBC (4.30-5.90) m/uL Hgb (13.0-17.5) gm/dL Hct (39.0-53.0) % MCV (80.0-100.0) fL MCHC (31.0-37.0) g/dL RDW (11.5-15.5) % Neutrophils # (1.3-7.7) k/uL Neutrophils # (Manual) (1.3-7.7) k/uL Lymphocytes # (1.0-4.8) k/uL Lymphocytes # (Manual) (1.0-4.8) k/uL Myelocytes # (Manual) (0) k/uL Nucleated RBCs (0-0) /100 WBC Macrocytosis PT 22.9 H (9.0-12.0) sec INR 2.4 H (<1.2) ABG pH (7.35-7.45) ABG pCO2 (35-45) mmHg ABG pO2 (83-108) mmHg ABG Total CO2 (19-24) mmol/L ABG O2 Saturation (94-97) % Sodium (137-145) mmol/L Potassium (3.5-5.1) mmol/L Carbon Dioxide (22-30) mmol/L BUN (9-20) mg/dL Creatinine (0.66-1.25) mg/dL Glucose (74-99) mg/dL POC Glucose (mg/dL) 191 H 135 H (75-99) mg/dL Calcium (8.4-10.2) mg/dL Magnesium (1.6-2.3) mg/dL Total Protein (6.3-8.2) g/dL Albumin (3.5-5.0) g/dL Urine Protein (Negative) Urine Blood (Negative) Ur Leukocyte Esterase (Negative) Urine RBC (0-5) /hpf Urine WBC (0-5) /hpf Amorphous Sediment (None) /hpf Urine Bacteria (None) /hpf 04/02/20 04/02/20 04/02/20 Range/Units 06:34 06:34 06:34 WBC 13.0 H (3.8-10.6) k/uL RBC 2.80 L (4.30-5.90) m/uL Hgb 9.0 L (13.0-17.5) gm/dL Hct 30.6 L (39.0-53.0) % MCV 109.2 H (80.0-100.0) fL MCHC 29.3 L (31.0-37.0) g/dL RDW 18.4 H (11.5-15.5) % Neutrophils # 11.0 H (1.3-7.7) k/uL Neutrophils # (Manual) (1.3-7.7) k/uL Lymphocytes # 0.8 L (1.0-4.8) k/uL Lymphocytes # (Manual) (1.0-4.8) k/uL Myelocytes # (Manual) (0) k/uL Nucleated RBCs (0-0) /100 WBC Macrocytosis Marked A PT (9.0-12.0) sec INR (<1.2) ABG pH (7.35-7.45) ABG pCO2 (35-45) mmHg ABG pO2 (83-108) mmHg ABG Total CO2 (19-24) mmol/L ABG O2 Saturation (94-97) % Sodium 134 L (137-145) mmol/L Potassium 5.8 H (3.5-5.1) mmol/L Carbon Dioxide 20 L (22-30) mmol/L BUN 115 H* (9-20) mg/dL Creatinine 4.43 H (0.66-1.25) mg/dL Glucose 105 H (74-99) mg/dL POC Glucose (mg/dL) (75-99) mg/dL Calcium (8.4-10.2) mg/dL Magnesium 3.0 H (1.6-2.3) mg/dL Total Protein 5.9 L (6.3-8.2) g/dL Albumin 2.9 L (3.5-5.0) g/dL Urine Protein (Negative) Urine Blood (Negative) Ur Leukocyte Esterase (Negative) Urine RBC (0-5) /hpf Urine WBC (0-5) /hpf Amorphous Sediment (None) /hpf Urine Bacteria (None) /hpf 04/02/20 04/02/20 04/02/20 Range/Units 09:41 10:17 10:44 WBC (3.8-10.6) k/uL RBC (4.30-5.90) m/uL Hgb (13.0-17.5) gm/dL Hct (39.0-53.0) % MCV (80.0-100.0) fL MCHC (31.0-37.0) g/dL RDW (11.5-15.5) % Neutrophils # (1.3-7.7) k/uL Neutrophils # (Manual) (1.3-7.7) k/uL Lymphocytes # (1.0-4.8) k/uL Lymphocytes # (Manual) (1.0-4.8) k/uL Myelocytes # (Manual) (0) k/uL Nucleated RBCs (0-0) /100 WBC Macrocytosis PT (9.0-12.0) sec INR (<1.2) ABG pH 7.06 L* (7.35-7.45) ABG pCO2 77 H* (35-45) mmHg ABG pO2 161 H (83-108) mmHg ABG Total CO2 25 H (19-24) mmol/L ABG O2 Saturation 99.4 H (94-97) % Sodium (137-145) mmol/L Potassium (3.5-5.1) mmol/L Carbon Dioxide (22-30) mmol/L BUN (9-20) mg/dL Creatinine (0.66-1.25) mg/dL Glucose (74-99) mg/dL POC Glucose (mg/dL) 155 H (75-99) mg/dL Calcium (8.4-10.2) mg/dL Magnesium (1.6-2.3) mg/dL Total Protein (6.3-8.2) g/dL Albumin (3.5-5.0) g/dL Urine Protein 2+ H (Negative) Urine Blood Small H (Negative) Ur Leukocyte Esterase Small H (Negative) Urine RBC 21 H (0-5) /hpf Urine WBC 19 H (0-5) /hpf Amorphous Sediment Few H (None) /hpf Urine Bacteria Occasional H (None) /hpf 04/02/20 04/02/20 04/02/20 Range/Units 11:59 12:29 12:29 WBC 13.6 H (3.8-10.6) k/uL RBC 2.74 L (4.30-5.90) m/uL Hgb 8.8 L (13.0-17.5) gm/dL Hct 30.1 L (39.0-53.0) % MCV 109.8 H (80.0-100.0) fL MCHC 29.2 L (31.0-37.0) g/dL RDW 18.4 H (11.5-15.5) % Neutrophils # (1.3-7.7) k/uL Neutrophils # (Manual) 12.65 H (1.3-7.7) k/uL Lymphocytes # (1.0-4.8) k/uL Lymphocytes # (Manual) 0.41 L (1.0-4.8) k/uL Myelocytes # (Manual) 0.14 H (0) k/uL Nucleated RBCs 1 H (0-0) /100 WBC Macrocytosis Marked A PT (9.0-12.0) sec INR (<1.2) ABG pH (7.35-7.45) ABG pCO2 (35-45) mmHg ABG pO2 (83-108) mmHg ABG Total CO2 (19-24) mmol/L ABG O2 Saturation (94-97) % Sodium 134 L (137-145) mmol/L Potassium 5.7 H (3.5-5.1) mmol/L Carbon Dioxide (22-30) mmol/L BUN 112 H* (9-20) mg/dL Creatinine 4.52 H (0.66-1.25) mg/dL Glucose 103 H (74-99) mg/dL POC Glucose (mg/dL) 123 H (75-99) mg/dL Calcium 7.8 L (8.4-10.2) mg/dL Magnesium (1.6-2.3) mg/dL Total Protein 5.6 L (6.3-8.2) g/dL Albumin 2.6 L (3.5-5.0) g/dL Urine Protein (Negative) Urine Blood (Negative) Ur Leukocyte Esterase (Negative) Urine RBC (0-5) /hpf Urine WBC (0-5) /hpf Amorphous Sediment (None) /hpf Urine Bacteria (None) /hpf 04/02/20 04/02/20 04/02/20 Range/Units 12:37 13:58 14:49 WBC (3.8-10.6) k/uL RBC (4.30-5.90) m/uL Hgb (13.0-17.5) gm/dL Hct (39.0-53.0) % MCV (80.0-100.0) fL MCHC (31.0-37.0) g/dL RDW (11.5-15.5) % Neutrophils # (1.3-7.7) k/uL Neutrophils # (Manual) (1.3-7.7) k/uL Lymphocytes # (1.0-4.8) k/uL Lymphocytes # (Manual) (1.0-4.8) k/uL Myelocytes # (Manual) (0) k/uL Nucleated RBCs (0-0) /100 WBC Macrocytosis PT (9.0-12.0) sec INR (<1.2) ABG pH 7.08 L* 7.10 L* (7.35-7.45) ABG pCO2 71 H* 72 H* (35-45) mmHg ABG pO2 80 L (83-108) mmHg ABG Total CO2 (19-24) mmol/L ABG O2 Saturation 92.5 L (94-97) % Sodium (137-145) mmol/L Potassium (3.5-5.1) mmol/L Carbon Dioxide (22-30) mmol/L BUN (9-20) mg/dL Creatinine (0.66-1.25) mg/dL Glucose (74-99) mg/dL POC Glucose (mg/dL) 119 H (75-99) mg/dL Calcium (8.4-10.2) mg/dL Magnesium (1.6-2.3) mg/dL Total Protein (6.3-8.2) g/dL Albumin (3.5-5.0) g/dL Urine Protein (Negative) Urine Blood (Negative) Ur Leukocyte Esterase (Negative) Urine RBC (0-5) /hpf Urine WBC (0-5) /hpf Amorphous Sediment (None) /hpf Urine Bacteria (None) /hpf Microbiology - Last 24 Hours (Table) 04/02/20 10:17 Urine Culture - Preliminary Urine,Voided 03/30/20 10:26 Blood Culture - Preliminary Blood No Growth after 72 hours Diabetes panel 04/02/20 04/02/20 Range/Units 06:34 12:29 Sodium 134 L 134 L (137-145) mmol/L Potassium 5.8 H 5.7 H (3.5-5.1) mmol/L Chloride 105 106 (98-107) mmol/L Carbon Dioxide 20 L 23 (22-30) mmol/L BUN 115 H* 112 H* (9-20) mg/dL Creatinine 4.43 H 4.52 H (0.66-1.25) mg/dL Glucose 105 H 103 H (74-99) mg/dL Calcium 8.4 7.8 L (8.4-10.2) mg/dL AST 46 45 (17-59) U/L ALT 27 27 (4-49) U/L Alkaline Phosphatase 124 113 (38-126) U/L Total Protein 5.9 L 5.6 L (6.3-8.2) g/dL Albumin 2.9 L 2.6 L (3.5-5.0) g/dL Calcium panel 04/02/20 04/02/20 Range/Units 06:34 12:29 Calcium 8.4 7.8 L (8.4-10.2) mg/dL Albumin 2.9 L 2.6 L (3.5-5.0) g/dL Pituitary panel 04/02/20 04/02/20 Range/Units 06:34 12:29 Sodium 134 L 134 L (137-145) mmol/L Potassium 5.8 H 5.7 H (3.5-5.1) mmol/L Chloride 105 106 (98-107) mmol/L Carbon Dioxide 20 L 23 (22-30) mmol/L BUN 115 H* 112 H* (9-20) mg/dL Creatinine 4.43 H 4.52 H (0.66-1.25) mg/dL Glucose 105 H 103 H (74-99) mg/dL Calcium 8.4 7.8 L (8.4-10.2) mg/dL Adrenal panel 04/02/20 04/02/20 Range/Units 06:34 12:29 Sodium 134 L 134 L (137-145) mmol/L Potassium 5.8 H 5.7 H (3.5-5.1) mmol/L Chloride 105 106 (98-107) mmol/L Carbon Dioxide 20 L 23 (22-30) mmol/L BUN 115 H* 112 H* (9-20) mg/dL Creatinine 4.43 H 4.52 H (0.66-1.25) mg/dL Glucose 105 H 103 H (74-99) mg/dL Calcium 8.4 7.8 L (8.4-10.2) mg/dL Total Bilirubin 0.9 0.8 (0.2-1.3) mg/dL AST 46 45 (17-59) U/L ALT 27 27 (4-49) U/L Alkaline Phosphatase 124 113 (38-126) U/L Total Protein 5.9 L 5.6 L (6.3-8.2) g/dL Albumin 2.9 L 2.6 L (3.5-5.0) g/dL
--- NOTE | 2020-04-02 17:50 | P.PCN ---
Description of Procedure: Diagnoses acute chronic renal failure, hyperkalemia, sepsis, Posterior same Procedure ultrasound-guided dialysis cath placement right jugular approach under local IV sedation Chris of the neck and chest was prepped draped for pressure manner 1% lidocaine for infected neck area. Ultrasound-guided micropuncture introduced right jug ular vein and micropuncture guidewire was passed without any resistance 4 with generator and was passed on the top of the guidewire then we passed a regular guidewire check for PVC no PVC noted then dilator was advanced on the top of the guidewire after that we place a dialysis catheter on the top of guidewire guidewire was removed flushed with heparin saline and Hep-Lock secured with 3-0 nylon dressing applied patient are to the procedure well will do the chest x-ray for line placement
[2020-04-02] MEDS ORDERED: WARFARIN 2 MG TAB PO ONE (18:00)
--- NOTE | 2020-04-02 18:32 | XR ---
EXAMINATION TYPE: XR chest 1V confirm line [facility] DATE OF EXAM: 04/02/2020 COMPARISON: Earlier same day. HISTORY: Catheter placement. TECHNIQUE: Single frontal view of the chest is obtained. FINDINGS: There is interval placement of right IJ dialysis catheter with tip overlying the caudal SV C. There are persistent [id number] bibasilar opacities with small right and trace left pleural effusions. No pneumothorax. Stable cardiomegaly and cardiothoracic post surgical changes. The osse ous structures are otherwise intact. IMPRESSION: As above.
--- NOTE | 2020-04-02 18:52 | PN ---
PROGRESS NOTE DATE OF SERVICE: 04/02/2020 REASON FOR FOLLOWUP: MRSA bacteremia. INTERVAL HISTORY: Patient seemed to have a problem with hypothermia as well as hypotension where the patient will be transferred down to the ICU. Patient currently on a BiPAP and very lethargic but arousable. Denies having any chest pain or cough. No abdominal pain or diarrhea. PHYSICAL EXAMINATION: Blood pressure is 95/45, pulse of 73, temperature of 94.1. He is 100% on BiPAP. General description is an elderly male lying in bed in no distress. Respiratory system: Unlabored breathing, decreased breath sounds in the bases. No wheeze. Heart S1, S2. Regular rate and rhythm. Abdomen soft, no tenderness. Legs currently wrapped up. No obvious drainage on the dressing. LABS: Hemoglobin 8.8, white count 13.6, BUN 112, creatinine 4.52. DIAGNOSTIC IMPRESSION AND PLAN: 1. Patient with Proteus mirabilis, ESBL urinary tract infection that has been noted has been continued. Repeat urine has been negative. 2. The patient with MRSA bacteremia, soft tissue source. Previous cultures have been negative. Currently covered with daptomycin to continue along with Flagyl. 3. Monitor clinical course closely. MMODL / IJN: [id number] /
--- NOTE | 2020-04-02 19:28 | P.PN ---
Subjective Progress Note Date: 04/02/20 Te Brady is a 74-year-old male patient who presented to the ER from rehab with complaints of increased O fungal rash in the groin eroding foreskin secondary to catheter. Patient also had acute kidney injury and elevated INR. Patient's past medical history of atrial fibrillation which she is maintained on Coumadin, heart failure, COPD, dementia, hypertension, myocardial infarction, osteoarthritis with sleep apnea in which he uses home CPAP machine, pacemaker, anxiety and heart valve replacement. Patient's creatinine upon admission 3.07 and bun 77 potassium also elevated at 56. INR greater than 10. UA positive for the same Estrace. Chest x-ray completed showing T over the left lower lung r egion correlate for atelectasis or pneumonia. At this time patient has been started on Rocephin and Levaquin for IV antibiotics. Urology services have been consulted. Nephrology service is consulted for acute kidney injury. Potassium lowering cocktail given per nephrology. Dr. zavala and has been consulted for pulmonary due to possible pneumonia. Wound and blood cultures ordered. at this time patient denies chest pain or shortness of breath. Patient denies nausea vomiting or diarrhea. On 03/19/2020 patient was seen and examined on the medical floor he is alert and oriented 3 in no apparent distress, he is complaining of diarrhea with stool incontinence, otherwise he denies any complaints there is no fever or chills no headache or dizziness, no chest pain no shortness of breath no cough no nausea or vomiting no abdominal pain no blood in the stools no burning with urination no frequency or urgency and no hematuria 03/20/2020 patient was seen and examined on the medical floor he is alert and oriented 3 in no apparent distress there is no fever or chills no headache or d izziness no chest pain no shortness of breath no cough no nausea or vomiting no abdominal pain no diarrhea no blood in the stools no burning with urination no frequency or urgency and no hematuria. Clinton catheter has been removed and patient is able to urinate. INR is still elevated patient will be getting vitamin K 2.5 mg by mouth 1 time today on 03/21/2020 patient is alert and oriented 3currently sitting up in chair. INR today 3.5. patient maintained on meropenem and vancomycin for IV an tibiotics. At that time Clinton catheter has been removed to patient voiding independently will follow-up outpatient with urology for possible cystoscopy. At this time patient denies chest pain or shortness of breath. Patient denies nausea vomiting or diarrhea. Patient denies any urinary burning or frequency On 03/22/2020 patient was seen and examined on the medical floor he is alert and oriented 3 in no distress, he had the midline placed today and antibiotic were resumed, white blood count is elevated at 13.5, there is no fever or chills no headache or dizziness no chest pain no shortness of breath no cough no nausea or vomiting no abdominal pain no diarrhea and no urinary symptoms. On 03/23/2020 patient was seen and examined on the medical floor he is alert and oriented 3 in no apparent distress there is no fever or chills no headache or dizziness no chest pain no shortness of breath no cough no nausea or vomiting no abdominal pain no diarrhea and no urinary symptoms white blood count remains elevated, patient was resumed on IV antibiotic via midline will continue to monitor during this weekend. On 03/24/2020 patient was seen and examined on the medical floor he is alert and oriented in no apparent distress he is sitting up in chair he denies any complaints at this time there is no fever or chills no headache or dizziness no chest pain no shortness of breath no palpitation no cough no nausea or vomiting no abdominal pain no diarrhea no blood in the stools no burning with urination no frequency or urgency and no hematuria. On 03/25/2020 patient was seen and examined on the medical floor he is alert and oriented in no distress he denies any symptoms at this time, he is sitting up in a chair eating his meal, there is no fever or chills no headache or dizziness no chest pain no shortness of breath no cough no nausea or vomiting no abdominal pain no diarrhea no blood in the stools no burning with urination no frequency or urgency and no hematuria. Infectious disease recommendation reviewed patient has a midline he will need to go to the skilled nursing on IV antibiotic. on 03/26/2020 patient was seen and examined on the medical floor he is alert and oriented 3 in no distress he is complaining of generalized weakness otherwise no specific complaints there is no fever or chills no headache or dizziness no chest pain no shortness of breath no cough no nausea or vomiting no abdominal pain no diarrhea and no urinary symptoms, he remains on IV antibiotic white blood count is still elevated . Patient has a midline in the right arm, he will need to continue IV antibiotic at the skilled nursing, he is urinating well without Clinton catheter. On 03/27/2020 patient was seen and examined on the medical floor he is alert and oriented 3 in no distress there is no fever or chills no headache or dizziness no chest pain no shortness of breath no cough no nausea or vomiting no abdominal pain no diarrhea no blood in the stools no burning with urination no frequency or urgency and no hematuria is still complaining of generalized weakness On 03/28/2020 patient is alert and oriented 3. Discussed case with Dr. Walt Aviles and continue daptomycin recommending keeping patient 24 more hours to watch kidney function. Likely discharge to [facility] tomorrow. Patient denies chest pain or shortness of breath. Patient denies nausea vomiting or diarrhea. Patient denies any urinary burning or frequency. Did discuss case also with nephrology services recommending lasix twice a day upon discharge On 03/29/2020 patient was seen and examined on the medical floor he is alert and oriented 3 in no apparent distress there is no fever or chills no headache or dizziness no chest pain no shortness of breath no cough no nausea or vomiting no abdominal pain no diarrhea no blood in the stools no burning with urination no frequency or urgency and no hematuria. Kidney function is slightly worse today. At this time patient is stable, awaiting clearance from infectious disease and nephrology, and the recommendation for discharge antibiotics On 03/30/2020 patient had low temp all-night. Rectal temps were obtained and patient was placed on bear hugger. Patient is alert and oriented. At this time critical care services have been consulted. Chest x-ray urine culture and blood cultures ordered. Did discuss case with infectious disease updated outpatient physician. Blood pressure and heart rate have remained stable. Lactic acid was checked in stable at 1.0. Kidney function slightly worse today. Continue to monitor patient very closely critical care infectious disease and nephrology services are following. On 03/31/2020 patient was seen and examined on the medical floor he is alert and oriented 3 in no distress, he is still having episodes of hypothermia, there is no fever or chills no headache or dizziness no chest pain no shortness of breath no cough no nausea or vomiting no abdominal pain no diarrhea and no urinary symptoms. Medication and labs were reviewed, input from multiple consultants reviewed in details. On 04/01/2020 patient is alert and oriented 3. Creatinine increasing. Patient also having low pressures. Recommendations per nephrology to transfer patient to ICU and start Levophed. 2-D echo cardiology consult placed also to rule out cardiorenal syndrome. Discussed case with critical care team and nurse practitioner, updated on nephrology recommendation on ICU transfer and initiation of Levophed. At this time patient denies chest pain. Patient denies shortness breath. Patient denies nausea vomiting or diarrhea. Patient denies any urinary burning or frequency. Critical care, nephrology, infectious disease already following. Cardiology consult placed. On 04/02/2020 patient was seen and examined he continued to have episodes of hypothermia and hypotension he was reevaluated by critical care Dr. Gomez today at this time patient will be transferred to intensive care unit. Clinically patient is alert and oriented he denies any chest pain he has occasional shortness of breath no headache or dizziness no nausea vomiting or abdominal pain and no urinary symptoms. Objective - Vital Signs Vital signs: Vital Signs Temp 94.4 F L 04/02/20 14:00 Pulse 60 04/02/20 19:00 Resp 18 04/02/20 19:00 BP 85/25 04/02/20 17:30 Pulse Ox 100 04/02/20 19:00 Intake & Output 04/02/20 04/02/20 04/03/20 06:59 18:59 06:59 Intake Total 2173.761 14.414 Output Total 30 Balance 2143.761 14.414 Weight 123 kg 182.3 kg Intake: IV 2100 Sodium Chloride 0.9% 1, 2100 000 ml @ 999 mls/hr IV . Q1H1M ONE Rx#:[id number] Intake, IV Titration 73.761 14.414 Amount Norepinephrine 32 mg In 73.761 14.414 Sodium Chloride 0.9% 218 ml @ 0.05 MCG/KG/MIN 2. 883 mls/hr IV .Q24H [facility] Rx#:[id number] Output: Urine 30 Other: Voiding Method Diaper Indwelling Catheter # Voids 1 # Bowel Movements 1 ABP, PAP, CO, CI - Last Documented Arterial Blood Pressure 88/42 - Exam Head normocephalic and atraumatic Neck supple no JVD no goiter Lungs clear to auscultation bilaterally no wheezing or crackles Heart irregular rate. known atrial fibrillation Abdomen is soft nontender nondistended positive bowel sounds no hepatosplenomegaly Extremities no edema no cyanosis or clubbing Neuro alert and orientated to 2. Dementia Drainage noted to penile area around catheter. Erosion to groin area. - Labs CBC & Chem 7: 04/02/20 12:29 04/02/20 12:29 Labs: Abnormal Lab Results - Last 24 Hours (Table) 04/01/20 04/02/20 04/02/20 Range/Units 20:47 06:11 06:34 WBC (3.8-10.6) k/uL RBC (4.30-5.90) m/uL Hgb (13.0-17.5) gm/dL Hct (39.0-53.0) % MCV (80.0-100.0) fL MCHC (31.0-37.0) g/dL RDW (11.5-15.5) % Neutrophils # (1.3-7.7) k/uL Neutrophils # (Manual) (1.3-7.7) k/uL Lymphocytes # (1.0-4.8) k/uL Lymphocytes # (Manual) (1.0-4.8) k/uL Myelocytes # (Manual) (0) k/uL Nucleated RBCs (0-0) /100 WBC Macrocytosis PT 22.9 H (9.0-12.0) sec INR 2.4 H (<1.2) ABG pH (7.35-7.45) ABG pCO2 (35-45) mmHg ABG pO2 (83-108) mmHg ABG Total CO2 (19-24) mmol/L ABG O2 Saturation (94-97) % Sodium (137-145) mmol/L Potassium (3.5-5.1) mmol/L Carbon Dioxide (22-30) mmol/L BUN (9-20) mg/dL Creatinine (0.66-1.25) mg/dL Glucose (74-99) mg/dL POC Glucose (mg/dL) 191 H 135 H (75-99) mg/dL Calcium (8.4-10.2) mg/dL Magnesium (1.6-2.3) mg/dL Total Protein (6.3-8.2) g/dL Albumin (3.5-5.0) g/dL Urine Protein (Negative) Urine Blood (Negative) Ur Leukocyte Esterase (Negative) Urine RBC (0-5) /hpf Urine WBC (0-5) /hpf Amorphous Sediment (None) /hpf Urine Bacteria (None) /hpf 04/02/20 04/02/20 04/02/20 Range/Units 06:34 06:34 06:34 WBC 13.0 H (3.8-10.6) k/uL RBC 2.80 L (4.30-5.90) m/uL Hgb 9.0 L (13.0-17.5) gm/dL Hct 30.6 L (39.0-53.0) % MCV 109.2 H (80.0-100.0) fL MCHC 29.3 L (31.0-37.0) g/dL RDW 18.4 H (11.5-15.5) % Neutrophils # 11.0 H (1.3-7.7) k/uL Neutrophils # (Manual) (1.3-7.7) k/uL Lymphocytes # 0.8 L (1.0-4.8) k/uL Lymphocytes # (Manual) (1.0-4.8) k/uL Myelocytes # (Manual) (0) k/uL Nucleated RBCs (0-0) /100 WBC Macrocytosis Marked A PT (9.0-12.0) sec INR (<1.2) ABG pH (7.35-7.45) ABG pCO2 (35-45) mmHg ABG pO2 (83-108) mmHg ABG Total CO2 (19-24) mmol/L ABG O2 Saturation (94-97) % Sodium 134 L (137-145) mmol/L Potassium 5.8 H (3.5-5.1) mmol/L Carbon Dioxide 20 L (22-30) mmol/L BUN 115 H* (9-20) mg/dL Creatinine 4.43 H (0.66-1.25) mg/dL Glucose 105 H (74-99) mg/dL POC Glucose (mg/dL) (75-99) mg/dL Calcium (8.4-10.2) mg/dL Magnesium 3.0 H (1.6-2.3) mg/dL Total Protein 5.9 L (6.3-8.2) g/dL Albumin 2.9 L (3.5-5.0) g/dL Urine Protein (Negative) Urine Blood (Negative) Ur Leukocyte Esterase (Negative) Urine RBC (0-5) /hpf Urine WBC (0-5) /hpf Amorphous Sediment (None) /hpf Urine Bacteria (None) /hpf 04/02/20 04/02/20 04/02/20 Range/Units 09:41 10:17 10:44 WBC (3.8-10.6) k/uL RBC (4.30-5.90) m/uL Hgb (13.0-17.5) gm/dL Hct (39.0-53.0) % MCV (80.0-100.0) fL MCHC (31.0-37.0) g/dL RDW (11.5-15.5) % Neutrophils # (1.3-7.7) k/uL Neutrophils # (Manual) (1.3-7.7) k/uL Lymphocytes # (1.0-4.8) k/uL Lymphocytes # (Manual) (1.0-4.8) k/uL Myelocytes # (Manual) (0) k/uL Nucleated RBCs (0-0) /100 WBC Macrocytosis PT (9.0-12.0) sec INR (<1.2) ABG pH 7.06 L* (7.35-7.45) ABG pCO2 77 H* (35-45) mmHg ABG pO2 161 H (83-108) mmHg ABG Total CO2 25 H (19-24) mmol/L ABG O2 Saturation 99.4 H (94-97) % Sodium (137-145) mmol/L Potassium (3.5-5.1) mmol/L Carbon Dioxide (22-30) mmol/L BUN (9-20) mg/dL Creatinine (0.66-1.25) mg/dL Glucose (74-99) mg/dL POC Glucose (mg/dL) 155 H (75-99) mg/dL Calcium (8.4-10.2) mg/dL Magnesium (1.6-2.3) mg/dL Total Protein (6.3-8.2) g/dL Albumin (3.5-5.0) g/dL Urine Protein 2+ H (Negative) Urine Blood Small H (Negative) Ur Leukocyte Esterase Small H (Negative) Urine RBC 21 H (0-5) /hpf Urine WBC 19 H (0-5) /hpf Amorphous Sediment Few H (None) /hpf Urine Bacteria Occasional H (None) /hpf 04/02/20 04/02/20 04/02/20 Range/Units 11:59 12:29 12:29 WBC 13.6 H (3.8-10.6) k/uL RBC 2.74 L (4.30-5.90) m/uL Hgb 8.8 L (13.0-17.5) gm/dL Hct 30.1 L (39.0-53.0) % MCV 109.8 H (80.0-100.0) fL MCHC 29.2 L (31.0-37.0) g/dL RDW 18.4 H (11.5-15.5) % Neutrophils # (1.3-7.7) k/uL Neutrophils # (Manual) 12.65 H (1.3-7.7) k/uL Lymphocytes # (1.0-4.8) k/uL Lymphocytes # (Manual) 0.41 L (1.0-4.8) k/uL Myelocytes # (Manual) 0.14 H (0) k/uL Nucleated RBCs 1 H (0-0) /100 WBC Macrocytosis Marked A PT (9.0-12.0) sec INR (<1.2) ABG pH (7.35-7.45) ABG pCO2 (35-45) mmHg ABG pO2 (83-108) mmHg ABG Total CO2 (19-24) mmol/L ABG O2 Saturation (94-97) % Sodium 134 L (137-145) mmol/L Potassium 5.7 H (3.5-5.1) mmol/L Carbon Dioxide (22-30) mmol/L BUN 112 H* (9-20) mg/dL Creatinine 4.52 H (0.66-1.25) mg/dL Glucose 103 H (74-99) mg/dL POC Glucose (mg/dL) 123 H (75-99) mg/dL Calcium 7.8 L (8.4-10.2) mg/dL Magnesium (1.6-2.3) mg/dL Total Protein 5.6 L (6.3-8.2) g/dL Albumin 2.6 L (3.5-5.0) g/dL Urine Protein (Negative) Urine Blood (Negative) Ur Leukocyte Esterase (Negative) Urine RBC (0-5) /hpf Urine WBC (0-5) /hpf Amorphous Sediment (None) /hpf Urine Bacteria (None) /hpf 04/02/20 04/02/20 04/02/20 Range/Units 12:37 13:58 14:49 WBC (3.8-10.6) k/uL RBC (4.30-5.90) m/uL Hgb (13.0-17.5) gm/dL Hct (39.0-53.0) % MCV (80.0-100.0) fL MCHC (31.0-37.0) g/dL RDW (11.5-15.5) % Neutrophils # (1.3-7.7) k/uL Neutrophils # (Manual) (1.3-7.7) k/uL Lymphocytes # (1.0-4.8) k/uL Lymphocytes # (Manual) (1.0-4.8) k/uL Myelocytes # (Manual) (0) k/uL Nucleated RBCs (0-0) /100 WBC Macrocytosis PT (9.0-12.0) sec INR (<1.2) ABG pH 7.08 L* 7.10 L* (7.35-7.45) ABG pCO2 71 H* 72 H* (35-45) mmHg ABG pO2 80 L (83-108) mmHg ABG Total CO2 (19-24) mmol/L ABG O2 Saturation 92.5 L (94-97) % Sodium (137-145) mmol/L Potassium (3.5-5.1) mmol/L Carbon Dioxide (22-30) mmol/L BUN (9-20) mg/dL Creatinine (0.66-1.25) mg/dL Glucose (74-99) mg/dL POC Glucose (mg/dL) 119 H (75-99) mg/dL Calcium (8.4-10.2) mg/dL Magnesium (1.6-2.3) mg/dL Total Protein (6.3-8.2) g/dL Albumin (3.5-5.0) g/dL Urine Protein (Negative) Urine Blood (Negative) Ur Leukocyte Esterase (Negative) Urine RBC (0-5) /hpf Urine WBC (0-5) /hpf Amorphous Sediment (None) /hpf Urine Bacteria (None) /hpf Microbiology - Last 24 Hours (Table) 04/02/20 10:17 Urine Culture - Preliminary Urine,Voided 03/30/20 10:26 Blood Culture - Preliminary Blood No Growth after 72 hours Assessment and Plan Assessment: 1. Infection around catheter site with penile erosion. wound culture showing MRSA Enterobacter cloacae. 2. MRSA bacteremia repeat blood cultures ordered, 3. Gram-negative urinary tract infection related to ESBL Proteus mirabilis. 4. Acute kidney injury with elevated potassium. Creatinine elevated at 3.06 upon admission. Continue normal saline at 50. Nephrology services are following 5. Supratherapeutic INR. Hold Coumadin and recheck. patient did receive vitamin K. Current INR 3.5 6. Possible pneumonia. Patient started on Levaquin and Rocephin. Pulmonary service is consulted 7. History of insulin-dependent diabetes mellitus 8. History of essential hypertension 9. History of hyperlipidemia. Maintained on statin 10. History of stroke with suppressive aphasia 11. History of morbid obesity 12. History of urinary retention and difficulty with Clinton insertion. per urology servicesFoley catheter has been removed patient advised follow-up in one month with urology services for cystoscopy 13. Dementia. Maintained on Aricept and Namenda 14. Diarrhea will check stools for C. diff. 15. Nurse reporting that patient is making statements about being depressed, his is also concerned in that regard, at this time will restart patient on Wellbutrin SR 150 mg by mouth once daily 16. Sepsis with hypothermia and hypotension , patient 3 evaluated by critical care and will be transferred to intensive care unit today . DVT prophylaxis SCDs due to subtherapeutic INR. GI prophylaxis Protonix Infectious disease, nephrology and critical care service is consulted patient remains on daptomycin and Flagyl repeat blood cultures and urine and chest x-ray ordered continue Shahnaz hugger for low temp Nephrology services recommend transfer to intensive care unit and initiation of Levophed for blood pressure support, this was discussed with the critical care team. Per critical care team will evaluate patient. 2-D echo and cardiology consult placed
[2020-04-02] MEDS: TAMSULOSIN 0.4 MG CAP.ER.24H PO SCH (21:42)
[2020-04-02] MEDS: DONEPEZIL 10 MG TAB PO SCH (21:42)
[2020-04-02] MEDS: FUROSEMIDE 10 MG/ML 10 ML VIAL IV SCH (22:45)
[2020-04-02] MEDS: SODIUM CHLORIDE 0.9% 50 ML with VASOPRESSIN 20 UNIT IVPB SCH ×2 (23:12)
[2020-04-03] MEDS: HYDROCORTISONE SUCCINATE 100 MG/2 ML VIAL IV SCH ×3 (01:31→18:17)
[2020-04-03 03:31] LABS: Albumin 2.9 g/dL (3.5-5.0); Potassium 5.7 mmol/L (3.5-5.1); Total Bilirubin 1.3 mg/dL (0.2-1.3); Total Protein 6.1 g/dL (6.3-8.2)
[2020-04-03 03:39] LABS: Anisocytosis Slight; HCT 34.8 % (39.0-53.0); HGB 10.1 gm/dL (13.0-17.5); Hypochromasia Marked; MCH 31.9 pg (25.0-35.0); MCV 110.1 fL (80.0-100.0); Macrocytosis Marked; Platelet Count 243 k/uL (150-450); Poikilocytosis Moderate; RBC 3.16 m/uL (4.30-5.90); RDW 18.5 % (11.5-15.5)
[2020-04-03 03:51] LABS: INR 2.4 (<1.2); Prothrombin Time 23.3 sec (9.0-12.0)
[2020-04-03 04:46] LABS: Hepatitis B Surface AB- Quant 3.5 mIU/mL; Hepatitis B Surface Antibody Non-Reactive (Non-Reactive); Hepatitis B Surface Antigen Non-Reactive (Non-Reactive)
[2020-04-03 05:07] LABS: Band Neutrophils % 1 %; Metamyelocytes % 2 %; Neutrophils % (M) 89 %; Nucleated Red Blood Cells 8 /100 WBC (0-0); Total Cells Counted 200
[2020-04-03 05:08] LABS: Lymphocytes # (M) 1.53 k/uL (1.0-4.8); Metamyelocytes # (M) 0.44 k/uL (0); Monocytes # (M) 0.65 k/uL (0-1.0); WBC 21.8 k/uL (3.8-10.6)
[2020-04-03 05:13] LABS: Polychromasia Present
[2020-04-03] MEDS: CLOTRIMAZOLE/BETAMETH 1-0.05% CREAM 45 GM TUBE TOPICAL SCH (06:38)
[2020-04-03] MEDS: MIDODRINE 5 MG TAB PO SCH ×2 (06:58→18:17)
[2020-04-03] MEDS: FERROUS SULFATE 325 MG TAB PO SCH (06:59)
[2020-04-03] MEDS: CHOLECALCIFEROL 1,000 UNIT TAB PO SCH (06:59)
[2020-04-03] MEDS: MAGNESIUM OXIDE 400 MG TAB PO SCH (06:59)
[2020-04-03] MEDS: PANTOPRAZOLE 40 MG TABLET PO SCH (06:59)
[2020-04-03 07:14] LABS: Glucose,Whole Blood 120 mg/dL (75-99)
[2020-04-03] MEDS: ALBUTEROL HFA INHALER INHALATION PRN ×3 (07:26→17:01)
[2020-04-03] MEDS: SYMBICORT 160-4.5 MCG INHALER INHALATION SCH ×2 (07:27→17:01)
[2020-04-03 08:07] LABS: ABG Base Excess -10.9 mmol/L; ABG HCO3 18 mmol/L (21-25); ABG Oxygen Saturation 97.9 % (94-97); ABG PCO2 56 mmHg (35-45); ABG PO2 130 mmHg (83-108); ABG TCO2 20 mmol/L (19-24); Allen Test Performed? Yes
[2020-04-03] MEDS: NOREPINEPHRINE 32 MG in SODIUM CHLORIDE 0.9% 218 ML IV SCH ×2 (08:07→23:50)
[2020-04-03] MEDS ORDERED: SODIUM BICARB 8.4% 50 ML SYR (1 MEQ/ML) IV STA (08:09)
[2020-04-03 08:11] LABS: ABG PH 7.13 (7.35-7.45)
[2020-04-03] MEDS: buPROPion SR 150 MG TABLET.ER PO SCH (08:24)
[2020-04-03] MEDS: metroNIDAZOLE 500 MG TAB PO SCH ×3 (08:24→20:11)
[2020-04-03] MEDS: MEROPENEM 1 GM in SODIUM CHLORIDE 0.9% 100 ML IVPB SCH ×2 (08:25→20:12)
[2020-04-03] MEDS: MEMANTINE 5 MG TAB PO SCH ×2 (08:25→20:11)
[2020-04-03] MEDS: FUROSEMIDE 10 MG/ML 10 ML VIAL IV SCH ×2 (08:25→20:11)
--- NOTE | 2020-04-03 09:36 | PN ---
PROGRESS NOTE Mr. Brady is a 74-year-old male who was admitted to the hospital with evidence of sepsis. He has history of atrial fibrillation, permanent pacemaker implantation, coronary artery disease, aortic valve replacement. He was more obtunded yesterday and hypotensive, was transferred to the ICU. He received dialysis. He is awake, alert. He continues to be hypotensive requiring pressors. Hemodynamically, his blood pressure is stable on pressors. He denies any symptoms of chest discomfort. He denies any dizziness. He had no episode of ventricle ectopic activity. He continues to be at this time on the Aricept, furosemide 80 mg IV q.12 hours, Namenda, metoprolol succinate 50 mg daily. He is on Coumadin. He is on vasopressin. PHYSICAL EXAMINATION: Blood pressure 105/50 with a heart rate in 60s. LUNGS: With a few crackles at the bases, no wheezes. HEART: Irregular, regular rate and rhythm. S1, S2 with prosthetic aortic sound and a systolic ejection murmur, no diastolic murmur. ABDOMEN: Soft and nontender. EXTREMITIES: +1 to 2 edema bilaterally. LAB DATA: Revealed INR 2.4, hemoglobin 10.1. His BUN and creatinine 85 and 3.97. His pH yesterday was 7.08. IMPRESSION: 1. Sepsis with septic shock. 2. Status post coronary artery bypass grafting with aortic valve replacement. 3. Hypoxemia, improving. 4. Hypotension, related to sepsis. 5. Acute renal injury requiring dialysis. 6. Nonhealing wound of the abdominal fold. 7. Dementia. 8. History of hyperlipidemia. 9. History of anemia. 10.Prior history of stroke. RECOMMENDATION: Will continue present therapy. Try to wean the pressors as tolerated and depending on his progress, further recommendation will be made. Will continue on the antibiotics treatment and dialysis. MMODL / IJN: [id number] /
--- NOTE | 2020-04-03 10:21 | XR ---
EXAMINATION TYPE: XR chest 1V portable DATE OF EXAM: 04/03/2020 COMPARISON: 04/02/2020 INDICATION: Sepsis TECHNIQUE: Single frontal view of the chest is obtained. FINDINGS: The heart size is mildly prominent, stable from comparison.. The pulmonary vasculature is normal. There is an infiltrate in the left lower lobe. Mild infiltrate is along the right diaphragm. Small ri ght pleural effusion is not excluded. Sternotomy wires are in the midline. Right central venous catheter is present with the tip in superior vena cava region. Left central veno us catheter is present with the tip in the distal superior. Vena cava region. No pneumothorax is evid ent. Pacemaker overlies left chest. IMPRESSION: 1. Mild bibasilar infiltrates, improving from comparison. 2. Mild cardiomegaly. 3. Lines and catheters discussed above.
[2020-04-03 11:26] LABS: Glucose,Whole Blood 142 mg/dL (75-99)
--- NOTE | 2020-04-03 14:20 | P.PN ---
Subjective Patient is seen in follow-up for acute kidney injury. Patient's renal function did improve initially upon admission but the last few days as been worsening again. Creatinine up to 4.5 on April 02 - started on hemodialysis for severe volume overload and low urine output. Currently on 60 mics of Levophed as well as vasopressin. He is awake and alert. He tolerated SLED yesterday with 1 L ultrafiltration. Vital signs: Currently on Levophed and vasopressin. Heart rate stable. General: The patient appeared well nourished and normally developed. On BiPAP. HEENT: Head exam is unremarkable. LUNGS: Breath sounds decreased. HEART: Rate and Rhythm are regular. ABDOMEN: Soft, nontender. Obese. EXTREMITITES: 3+ edema. Objective - Vital Signs Vital signs: Vital Signs Temp 94 F L 04/03/20 11:00 Pulse 60 04/03/20 13:00 Resp 20 04/03/20 13:00 BP 95/43 04/02/20 22:27 Pulse Ox 97 04/03/20 13:00 Intake & Output 04/02/20 04/03/20 04/03/20 18:59 06:59 18:59 Intake Total 2173.761 436.359 407.898 Output Total 30 1015 30 Balance 2143.761 -578.641 377.898 Weight 182.3 kg 179.9 kg 179.9 kg Intake: IV 2100 160 140 Sodium Chloride 0.9% 1, 160 140 000 ml @ 20 mls/hr IV . Q24H [facility] Rx#:[id number] Sodium Chloride 0.9% 1, 2100 000 ml @ 999 mls/hr IV . Q1H1M [facility] Rx#:[id number] Intake, IV Titration 73.761 276.359 167.898 Amount Meropenem 1 gm In Sodium 100 100 Chloride 0.9% 100 ml @ 33 .3 mls/hr IVPB Q12HR [facility] Rx#:[id number] Norepinephrine 32 mg In 73.761 176.239 67.898 Sodium Chloride 0.9% 218 ml @ 0.05 MCG/KG/MIN 2. 883 mls/hr IV .Q24H [facility] Rx#:[id number] Sodium Chloride 0.9% 50 0.12 ml @ Titrate IVPB .Q0M [facility] with Vasopressin 20 unit Rx#:[id number] Oral 100 Output: Urine 30 15 30 Hemodialysis 1000 Other: Voiding Method Indwelling Catheter Indwelling Catheter Indwelling Catheter # Voids 1 ABP, PAP, CO, CI - Last Documented Arterial Blood Pressure 92/50 - Labs CBC & Chem 7: 04/03/20 03:00 04/03/20 03:00 Labs: Abnormal Lab Results - Last 24 Hours (Table) 04/02/20 04/03/20 04/03/20 Range/Units 14:49 03:00 03:00 WBC 21.8 H (3.8-10.6) k/uL RBC 3.16 L (4.30-5.90) m/uL Hgb 10.1 L (13.0-17.5) gm/dL Hct 34.8 L (39.0-53.0) % MCV 110.1 H (80.0-100.0) fL MCHC 29.0 L (31.0-37.0) g/dL RDW 18.5 H (11.5-15.5) % Neutrophils # (Manual) 19.60 H (1.3-7.7) k/uL Metamyelocytes # (Man) 0.44 H (0) k/uL Nucleated RBCs 8 H (0-0) /100 WBC Macrocytosis Marked A PT (9.0-12.0) sec INR (<1.2) ABG pH 7.10 L* (7.35-7.45) ABG pCO2 72 H* (35-45) mmHg ABG pO2 (83-108) mmHg ABG HCO3 (21-25) mmol/L ABG O2 Saturation (94-97) % Potassium 5.7 H (3.5-5.1) mmol/L Carbon Dioxide 20 L (22-30) mmol/L BUN 85 H (9-20) mg/dL Creatinine 3.97 H (0.66-1.25) mg/dL Glucose 108 H (74-99) mg/dL POC Glucose (mg/dL) (75-99) mg/dL Calcium 8.0 L (8.4-10.2) mg/dL AST 82 H (17-59) U/L Alkaline Phosphatase 130 H (38-126) U/L Total Protein 6.1 L (6.3-8.2) g/dL Albumin 2.9 L (3.5-5.0) g/dL 04/03/20 04/03/20 04/03/20 Range/Units 03:00 07:13 08:05 WBC (3.8-10.6) k/uL RBC (4.30-5.90) m/uL Hgb (13.0-17.5) gm/dL Hct (39.0-53.0) % MCV (80.0-100.0) fL MCHC (31.0-37.0) g/dL RDW (11.5-15.5) % Neutrophils # (Manual) (1.3-7.7) k/uL Metamyelocytes # (Man) (0) k/uL Nucleated RBCs (0-0) /100 WBC Macrocytosis PT 23.3 H (9.0-12.0) sec INR 2.4 H (<1.2) ABG pH 7.13 L* (7.35-7.45) ABG pCO2 56 H (35-45) mmHg ABG pO2 130 H (83-108) mmHg ABG HCO3 18 L (21-25) mmol/L ABG O2 Saturation 97.9 H (94-97) % Potassium (3.5-5.1) mmol/L Carbon Dioxide (22-30) mmol/L BUN (9-20) mg/dL Creatinine (0.66-1.25) mg/dL Glucose (74-99) mg/dL POC Glucose (mg/dL) 120 H (75-99) mg/dL Calcium (8.4-10.2) mg/dL AST (17-59) U/L Alkaline Phosphatase (38-126) U/L Total Protein (6.3-8.2) g/dL Albumin (3.5-5.0) g/dL 04/03/20 Range/Units 11:25 WBC (3.8-10.6) k/uL RBC (4.30-5.90) m/uL Hgb (13.0-17.5) gm/dL Hct (39.0-53.0) % MCV (80.0-100.0) fL MCHC (31.0-37.0) g/dL RDW (11.5-15.5) % Neutrophils # (Manual) (1.3-7.7) k/uL Metamyelocytes # (Man) (0) k/uL Nucleated RBCs (0-0) /100 WBC Macrocytosis PT (9.0-12.0) sec INR (<1.2) ABG pH (7.35-7.45) ABG pCO2 (35-45) mmHg ABG pO2 (83-108) mmHg ABG HCO3 (21-25) mmol/L ABG O2 Saturation (94-97) % Potassium (3.5-5.1) mmol/L Carbon Dioxide (22-30) mmol/L BUN (9-20) mg/dL Creatinine (0.66-1.25) mg/dL Glucose (74-99) mg/dL POC Glucose (mg/dL) 142 H (75-99) mg/dL Calcium (8.4-10.2) mg/dL AST (17-59) U/L Alkaline Phosphatase (38-126) U/L Total Protein (6.3-8.2) g/dL Albumin (3.5-5.0) g/dL Microbiology - Last 24 Hours (Table) 04/02/20 11:00 Blood Culture - Preliminary Blood No Growth after 24 hours 03/30/20 10:26 Blood Culture - Preliminary Blood No Growth after 96 hours 04/02/20 10:17 Urine Culture - Final Urine,Voided Assessment and Plan Plan: Assessment: 1. Acute kidney injury secondary to ATN secondary to septic shock. Started on hemodialysis April 02 for severe volume overload and low urine output. Urine output 0-10 mL an hour. No evidence of urinary retention. No clear hydronephrosis noted on kidney ultrasound. 2. Hyperkalemia secondary to acute kidney injury. 3. Septic shock maintained on Levophed and stress dose steroids. Low dose cosyntropin stimulation test was done earlier this admission and a cortisol level did rise post stimulation; however he was started on Cortef due to persistent hypotension. Now on stress dose steroids. 4. Volume overload. 5. Acute hypercapnic respiratory failure. 6. Penile erosion. Urology following. Plan: Maintain Lasix 80 mg IV twice daily. Second treatment of SLED today with goal 2 liters ultrafiltration if able to tolerate. Continue to monitor renal function and urine output.
--- NOTE | 2020-04-03 14:53 | P.PN ---
Subjective Progress Note Date: 04/03/20 Sepsis secondary to penile erosion with secondary cellulitis On 04/02/2020, the patient got transferred to the intensive care unit. Earlier this morning, the patient was found to be hypothermic, hypotensive and the patient also having diminished level of consciousness. I saw the patient and I noted that the patient is also developed an acute kidney injury in the creatinine has been on a gradual rise over the past few days is currently up to 4.52. An immediate blood gases was done and the patient was found to have severe asked her acidosis. PH was at 7. 06 with a pCO2 of 77 acute of 161. At that point, the patient was placed on a BiPAP and BiPAP pressures were at 14/6 cm of water and FiO2 is being titrated to maintain a saturation above 90%. Subsequent blood gases showed some limited improvement with a pH of 7.09 and a pCO2 of 72 and pO2 of 99. The patient has significant diminished level of consciousness. He looks quite lethargic and obtunded. I contacted the . We radiatio for the need for intubation mechanical ventilation. The wanted to come to the hospital discussed this matter further. As such the patient is currently on a BiPAP for respiratory support. The patient was given a liter of IV fluids on the floor with normal saline and currently the patient is receiving IV fluids at the rate of 75 mL an hour. The patient was also started on norepinephrine infusion for blood pressure support. Antibiotic modification was done and the patient was started on IV Merrem in combination to Flagyl and daptomycin. His cardiac rhythm is sinus and the patient is having frequent PACs. INR therapeutic for now as the patient is on long-term articulation with warfarin. Note that the patient had a penile ulcer/infection with secondary cellulitis. The cultures were obtained earlier showed MRSA and Enterobacter and MRSA was also cultured and the blood on 03/17/2020. In addition to that the patient positive cultures for Proteus mirabilis in the urine from 03/17/2020. Anaerobes are also cultured from the penile wound. Most recent temperature is 94.4. Nephrology is on the case regarding acute kidney injury and the patient is oliguric and the patient is being considered for hemodialysis at this point in time. He is morbidly obese and he carries a BMI 53. On 04/03/2020 the patient is being seen for a follow-up. The patient is improved considerably compared to yesterday. Note that the patient came in to the ICU with septic shock. The patient was altered mentally and the patient was also having severe hypotension and he was hypothermic. Overnight, the patient was suspected IV fluids. The patient was also given pressors and the patient was on high-dose norepinephrine infusion running at 60 mg per minute and vasopressin at 0.03 units an hour. The patient was also supported with BiPAP throughout the night. He underwent dialysis also. This morning, there is marked improvement in the patient's overall mentation. His much more awake and alert. Repeat blood gases was done on the patient was on 10 L of oxygen by nasal cannula and the patient had a pH of 7.12 with a pCO2 55 and pO2 1:30. Note that during hemodialysis, the patient had a 1 L of ultrafiltration also. He is on a broad-spectrum antibiotics. Currently on a combination of meropenem, daptomycin, Flagyl and Diflucan. Hemodialysis to follow today. He is much more awake and alert. He is tolerating diet. The white cell count is up to 21.8 with a hemoglobin of 10.1. Based on the electrolytes, the patient's potassium level of 5.7. BUN is 85 with a creatinine of 3.97. The UA was abnormal and urine culture and blood cultures still pending for now. Furthermore during the day, the patient has been weaned down to 4 L of oxygen by nasal cannula. His current pulse ox 97%. His chest x-ray is showing mild bibasilar pulmonary infiltrates which is improved compared to yesterday and the patient has some mild cardiomegaly. Objective - Vital Signs Vital signs: Vital Signs Temp 96.0 F L 04/03/20 04:00 Pulse 60 04/03/20 07:00 Resp 13 04/03/20 07:00 BP 95/43 04/02/20 22:27 Pulse Ox 100 04/03/20 07:00 Intake & Output 04/02/20 04/03/20 04/03/20 18:59 06:59 18:59 Intake Total 2173.761 274.534 20 Output Total 30 1015 Balance 2143.761 -740.466 20 Weight 182.3 kg 179.9 kg Intake: IV 2100 160 20 Sodium Chloride 0.9% 1, 160 20 000 ml @ 20 mls/hr IV . Q24H [facility] Rx#:[id number] Sodium Chloride 0.9% 1, 2100 000 ml @ 999 mls/hr IV . Q1H1M [facility] Rx#:[id number] Intake, IV Titration 73.761 114.534 Amount Meropenem 1 gm In Sodium 100 Chloride 0.9% 100 ml @ 33 .3 mls/hr IVPB Q12HR [facility] Rx#:[id number] Norepinephrine 32 mg In 73.761 14.414 Sodium Chloride 0.9% 218 ml @ 0.05 MCG/KG/MIN 2. 883 mls/hr IV .Q24H [facility] Rx#:[id number] Sodium Chloride 0.9% 50 0.12 ml @ Titrate IVPB .Q0M [facility] with Vasopressin 20 unit Rx#:[id number] Output: Urine 30 15 Hemodialysis 1000 Other: Voiding Method Indwelling Catheter Indwelling Catheter # Voids 1 ABP, PAP, CO, CI - Last Documented Arterial Blood Pressure 105/52 - Exam GENERAL EXAM: Diminished level of consciousness and the patient is obtunded and somnolent 74-year-old white male, awake and alert and comfortable on 4 L of oxygen by nasal cannula. HEAD: Normocephalic/atraumatic. EYES: Normal reaction of pupils, equal size. Conjunctiva pink, sclera white. NOSE: Clear with pink turbinates. THROAT: No erythema or exudates. NECK: No masses, no JVD, no thyroid enlargement, no adenopathy. CHEST: No chest wall deformity. Symmetrical expansion. LUNGS: Equal air entry with bibasilar crackles. The patient is currently on BiPAP for respiratory support. CVS: Regular rate and rhythm, normal S1 and S2, no gallops, no murmurs, no rubs ABDOMEN: Soft, nontender. No hepatosplenomegaly, normal bowel sounds, no guarding or rigidity. The patient has a large anterior abdominal wound from previous abdominal surgeries. EXTREMITIES: No clubbing, there is edema bilaterally and the patient has chronic wounds and ulcerations in addition to that there is diminished pulses in all 4 extremities. The penile also seems to be improving and there is no purulent drainage at this point in time and the patient has no scrotal cellulitis. There is evidence of scrotal edema. MUSCULOSKELETAL: Muscle tone is markedly diminished in all 4 extremities. SPINE: No scoliosis or deformity SKIN: Bilateral abdominal ulcerations, and maceration with excoriation, left medial calcaneal ulceration CENTRAL NERVOUS SYSTEM: Awake and alert and moving all 4 extremities without any limitation. He has diminished strength in all 4 extremities and there is global weakness. - Labs CBC & Chem 7: 04/03/20 03:00 04/03/20 03:00 Labs: Abnormal Lab Results - Last 24 Hours (Table) 04/02/20 04/02/20 04/02/20 Range/Units 06:34 06:34 06:34 WBC 13.0 H (3.8-10.6) k/uL RBC 2.80 L (4.30-5.90) m/uL Hgb 9.0 L (13.0-17.5) gm/dL Hct 30.6 L (39.0-53.0) % MCV 109.2 H (80.0-100.0) fL MCHC 29.3 L (31.0-37.0) g/dL RDW 18.4 H (11.5-15.5) % Neutrophils # 11.0 H (1.3-7.7) k/uL Neutrophils # (Manual) (1.3-7.7) k/uL Lymphocytes # 0.8 L (1.0-4.8) k/uL Lymphocytes # (Manual) (1.0-4.8) k/uL Metamyelocytes # (Man) (0) k/uL Myelocytes # (Manual) (0) k/uL Nucleated RBCs (0-0) /100 WBC Macrocytosis Marked A PT 22.9 H (9.0-12.0) sec INR 2.4 H (<1.2) ABG pH (7.35-7.45) ABG pCO2 (35-45) mmHg ABG pO2 (83-108) mmHg ABG Total CO2 (19-24) mmol/L ABG O2 Saturation (94-97) % Sodium 134 L (137-145) mmol/L Potassium 5.8 H (3.5-5.1) mmol/L Carbon Dioxide 20 L (22-30) mmol/L BUN 115 H* (9-20) mg/dL Creatinine 4.43 H (0.66-1.25) mg/dL Glucose 105 H (74-99) mg/dL POC Glucose (mg/dL) (75-99) mg/dL Calcium (8.4-10.2) mg/dL Magnesium (1.6-2.3) mg/dL AST (17-59) U/L Alkaline Phosphatase (38-126) U/L Total Protein 5.9 L (6.3-8.2) g/dL Albumin 2.9 L (3.5-5.0) g/dL Urine Protein (Negative) Urine Blood (Negative) Ur Leukocyte Esterase (Negative) Urine RBC (0-5) /hpf Urine WBC (0-5) /hpf Amorphous Sediment (None) /hpf Urine Bacteria (None) /hpf 04/02/20 04/02/20 04/02/20 Range/Units 06:34 09:41 10:17 WBC (3.8-10.6) k/uL RBC (4.30-5.90) m/uL Hgb (13.0-17.5) gm/dL Hct (39.0-53.0) % MCV (80.0-100.0) fL MCHC (31.0-37.0) g/dL RDW (11.5-15.5) % Neutrophils # (1.3-7.7) k/uL Neutrophils # (Manual) (1.3-7.7) k/uL Lymphocytes # (1.0-4.8) k/uL Lymphocytes # (Manual) (1.0-4.8) k/uL Metamyelocytes # (Man) (0) k/uL Myelocytes # (Manual) (0) k/uL Nucleated RBCs (0-0) /100 WBC Macrocytosis PT (9.0-12.0) sec INR (<1.2) ABG pH (7.35-7.45) ABG pCO2 (35-45) mmHg ABG pO2 (83-108) mmHg ABG Total CO2 (19-24) mmol/L ABG O2 Saturation (94-97) % Sodium (137-145) mmol/L Potassium (3.5-5.1) mmol/L Carbon Dioxide (22-30) mmol/L BUN (9-20) mg/dL Creatinine (0.66-1.25) mg/dL Glucose (74-99) mg/dL POC Glucose (mg/dL) 155 H (75-99) mg/dL Calcium (8.4-10.2) mg/dL Magnesium 3.0 H (1.6-2.3) mg/dL AST (17-59) U/L Alkaline Phosphatase (38-126) U/L Total Protein (6.3-8.2) g/dL Albumin (3.5-5.0) g/dL Urine Protein 2+ H (Negative) Urine Blood Small H (Negative) Ur Leukocyte Esterase Small H (Negative) Urine RBC 21 H (0-5) /hpf Urine WBC 19 H (0-5) /hpf Amorphous Sediment Few H (None) /hpf Urine Bacteria Occasional H (None) /hpf 04/02/20 04/02/20 04/02/20 Range/Units 10:44 11:59 12:29 WBC 13.6 H (3.8-10.6) k/uL RBC 2.74 L (4.30-5.90) m/uL Hgb 8.8 L (13.0-17.5) gm/dL Hct 30.1 L (39.0-53.0) % MCV 109.8 H (80.0-100.0) fL MCHC 29.2 L (31.0-37.0) g/dL RDW 18.4 H (11.5-15.5) % Neutrophils # (1.3-7.7) k/uL Neutrophils # (Manual) 12.65 H (1.3-7.7) k/uL Lymphocytes # (1.0-4.8) k/uL Lymphocytes # (Manual) 0.41 L (1.0-4.8) k/uL Metamyelocytes # (Man) (0) k/uL Myelocytes # (Manual) 0.14 H (0) k/uL Nucleated RBCs 1 H (0-0) /100 WBC Macrocytosis Marked A PT (9.0-12.0) sec INR (<1.2) ABG pH 7.06 L* (7.35-7.45) ABG pCO2 77 H* (35-45) mmHg ABG pO2 161 H (83-108) mmHg ABG Total CO2 25 H (19-24) mmol/L ABG O2 Saturation 99.4 H (94-97) % Sodium (137-145) mmol/L Potassium (3.5-5.1) mmol/L Carbon Dioxide (22-30) mmol/L BUN (9-20) mg/dL Creatinine (0.66-1.25) mg/dL Glucose (74-99) mg/dL POC Glucose (mg/dL) 123 H (75-99) mg/dL Calcium (8.4-10.2) mg/dL Magnesium (1.6-2.3) mg/dL AST (17-59) U/L Alkaline Phosphatase (38-126) U/L Total Protein (6.3-8.2) g/dL Albumin (3.5-5.0) g/dL Urine Protein (Negative) Urine Blood (Negative) Ur Leukocyte Esterase (Negative) Urine RBC (0-5) /hpf Urine WBC (0-5) /hpf Amorphous Sediment (None) /hpf Urine Bacteria (None) /hpf 04/02/20 04/02/20 04/02/20 Range/Units 12:29 12:37 13:58 WBC (3.8-10.6) k/uL RBC (4.30-5.90) m/uL Hgb (13.0-17.5) gm/dL Hct (39.0-53.0) % MCV (80.0-100.0) fL MCHC (31.0-37.0) g/dL RDW (11.5-15.5) % Neutrophils # (1.3-7.7) k/uL Neutrophils # (Manual) (1.3-7.7) k/uL Lymphocytes # (1.0-4.8) k/uL Lymphocytes # (Manual) (1.0-4.8) k/uL Metamyelocytes # (Man) (0) k/uL Myelocytes # (Manual) (0) k/uL Nucleated RBCs (0-0) /100 WBC Macrocytosis PT (9.0-12.0) sec INR (<1.2) ABG pH 7.08 L* (7.35-7.45) ABG pCO2 71 H* (35-45) mmHg ABG pO2 80 L (83-108) mmHg ABG Total CO2 (19-24) mmol/L ABG O2 Saturation 92.5 L (94-97) % Sodium 134 L (137-145) mmol/L Potassium 5.7 H (3.5-5.1) mmol/L Carbon Dioxide (22-30) mmol/L BUN 112 H* (9-20) mg/dL Creatinine 4.52 H (0.66-1.25) mg/dL Glucose 103 H (74-99) mg/dL POC Glucose (mg/dL) 119 H (75-99) mg/dL Calcium 7.8 L (8.4-10.2) mg/dL Magnesium (1.6-2.3) mg/dL AST (17-59) U/L Alkaline Phosphatase (38-126) U/L Total Protein 5.6 L (6.3-8.2) g/dL Albumin 2.6 L (3.5-5.0) g/dL Urine Protein (Negative) Urine Blood (Negative) Ur Leukocyte Esterase (Negative) Urine RBC (0-5) /hpf Urine WBC (0-5) /hpf Amorphous Sediment (None) /hpf Urine Bacteria (None) /hpf 04/02/20 04/03/20 04/03/20 Range/Units 14:49 03:00 03:00 WBC 21.8 H (3.8-10.6) k/uL RBC 3.16 L (4.30-5.90) m/uL Hgb 10.1 L (13.0-17.5) gm/dL Hct 34.8 L (39.0-53.0) % MCV 110.1 H (80.0-100.0) fL MCHC 29.0 L (31.0-37.0) g/dL RDW 18.5 H (11.5-15.5) % Neutrophils # (1.3-7.7) k/uL Neutrophils # (Manual) 19.60 H (1.3-7.7) k/uL Lymphocytes # (1.0-4.8) k/uL Lymphocytes # (Manual) (1.0-4.8) k/uL Metamyelocytes # (Man) 0.44 H (0) k/uL Myelocytes # (Manual) (0) k/uL Nucleated RBCs 8 H (0-0) /100 WBC Macrocytosis Marked A PT (9.0-12.0) sec INR (<1.2) ABG pH 7.10 L* (7.35-7.45) ABG pCO2 72 H* (35-45) mmHg ABG pO2 (83-108) mmHg ABG Total CO2 (19-24) mmol/L ABG O2 Saturation (94-97) % Sodium (137-145) mmol/L Potassium 5.7 H (3.5-5.1) mmol/L Carbon Dioxide 20 L (22-30) mmol/L BUN 85 H (9-20) mg/dL Creatinine 3.97 H (0.66-1.25) mg/dL Glucose 108 H (74-99) mg/dL POC Glucose (mg/dL) (75-99) mg/dL Calcium 8.0 L (8.4-10.2) mg/dL Magnesium (1.6-2.3) mg/dL AST 82 H (17-59) U/L Alkaline Phosphatase 130 H (38-126) U/L Total Protein 6.1 L (6.3-8.2) g/dL Albumin 2.9 L (3.5-5.0) g/dL Urine Protein (Negative) Urine Blood (Negative) Ur Leukocyte Esterase (Negative) Urine RBC (0-5) /hpf Urine WBC (0-5) /hpf Amorphous Sediment (None) /hpf Urine Bacteria (None) /hpf 04/03/20 04/03/20 Range/Units 03:00 07:13 WBC (3.8-10.6) k/uL RBC (4.30-5.90) m/uL Hgb (13.0-17.5) gm/dL Hct (39.0-53.0) % MCV (80.0-100.0) fL MCHC (31.0-37.0) g/dL RDW (11.5-15.5) % Neutrophils # (1.3-7.7) k/uL Neutrophils # (Manual) (1.3-7.7) k/uL Lymphocytes # (1.0-4.8) k/uL Lymphocytes # (Manual) (1.0-4.8) k/uL Metamyelocytes # (Man) (0) k/uL Myelocytes # (Manual) (0) k/uL Nucleated RBCs (0-0) /100 WBC Macrocytosis PT 23.3 H (9.0-12.0) sec INR 2.4 H (<1.2) ABG pH (7.35-7.45) ABG pCO2 (35-45) mmHg ABG pO2 (83-108) mmHg ABG Total CO2 (19-24) mmol/L ABG O2 Saturation (94-97) % Sodium (137-145) mmol/L Potassium (3.5-5.1) mmol/L Carbon Dioxide (22-30) mmol/L BUN (9-20) mg/dL Creatinine (0.66-1.25) mg/dL Glucose (74-99) mg/dL POC Glucose (mg/dL) 120 H (75-99) mg/dL Calcium (8.4-10.2) mg/dL Magnesium (1.6-2.3) mg/dL AST (17-59) U/L Alkaline Phosphatase (38-126) U/L Total Protein (6.3-8.2) g/dL Albumin (3.5-5.0) g/dL Urine Protein (Negative) Urine Blood (Negative) Ur Leukocyte Esterase (Negative) Urine RBC (0-5) /hpf Urine WBC (0-5) /hpf Amorphous Sediment (None) /hpf Urine Bacteria (None) /hpf Microbiology - Last 24 Hours (Table) 04/02/20 10:17 Urine Culture - Preliminary Urine,Voided 03/30/20 10:26 Blood Culture - Preliminary Blood No Growth after 72 hours Assessment and Plan Plan: 1 Septic shock. The patient is came in to the ICU hypotensive and hypothermic and his septic shock. Currently was resuscitated. Still requiring pressors and the patient remains on a combination of high-dose norepinephrine infusion and vasopressin. Nevertheless, overall condition is improved considerably as the patient was assessed his IV fluids antibiotics and the patient was also given pressors. Temperature is still low and the patient continues to have some ongoing hypothermia. 2 acute hypoxic/hypercapnic respiratory failure. Based on today's blood gas, there is improvement and acid base status. The patient is ventilating more effectively. Nevertheless, there is still a component of metabolic and respiratory acidosis. Currently her 40s about 2 by nasal cannula. The patient was taken off the BiPAP earlier this morning. 3 Penile erosion secondary to catheter with suspected infection with secondary cellulitis, Wound cultures showed MRSA, Enterobacter cloacae in addition to a naerobes. 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 history of aortic valve replacement 12 history of hypertension 13 obstructive sleep apnea. 14 history of pacemaker insertion for symptomatically bradycardia 15 COPD currently on room air oxygen with a pulse ox of 94% 16. chronic anemia 17. hyperlipidemia 18. history of previous CVA with expressive aphasia 19 BPH 20 chronic anemia, multifactorial, Plan Keep the patient intensive care unit. Broad-spectrum antibiotic coverage and add IV Merrem in addition to daptomycin and Flagyl, noted the patient is also on Diflucan. Awaiting the results of the follow-up blood culture. The results are still negative for now. Continue IV fluids and initiate pressors for hemodynamic support Continue stress dose hydrocortisone 100 mg every 8 hours of the patient's baseline serum cortisol level was low May discontinue BiPAP during the day may use overnight regarding hypercapnic respiratory failure, acute on chronic Give the patient and performed sodium bicarb IV push Hemodialysis with ultrafiltration today Lasix 80 mg a push twice daily The has been updated on the condition. Condition is critical at this point in time. This evaluation was done more than 30 minutes. Time with Patient: Greater than 30
[2020-04-03] MEDS ORDERED: HEPARIN SODIUM,PORCINE 5,000 UNIT/ML 1 ML VIAL ONE (15:00)
[2020-04-03] MEDS: SODIUM CHLORIDE 0.9% 50 ML with VASOPRESSIN 20 UNIT IVPB SCH ×2 (15:41)
--- NOTE | 2020-04-03 16:20 | CDI ---
Documentation Clarification Form Date: 04/03/2020 04:05:20 PM From: Carly Ca CCS, CCDS Admit Date: 03/17/2020 04:55:00 PM Patient Name: Te Brady Visit Number: [id number] Discharge Date: ATTENTION: The Clinical Documentation Specialists (CDI) and [facility] Coding Staff appreciate your assistance in clarifying documentation. Please respond to the clarification below the line at the bottom and electronically sign. The CDI & [facility] Coding staff will review the response and follow-up if needed. Please note: Queries are made part of the Legal Health Record. If you have any questions, please contact the author of this message via ITS. Dr. Yarely Treoj: Per the 04/02 Pulmonary/Critical Care Progress Note: "The chest x-ray showing diffuse pleural parenchymal changes could be on the basis of CHF as the patient has some bilateral pleural effusion and cardiomegaly and bibasilar pulmonary infiltrates." 04/02 CXR: Diffuse pleural-parenchymal changes could be on the basis of CHF or atypical pneumonia correlate clinically. History/Risk Factors: Atrial fibrillation, CHF nos, COPD, Hypertension, CO status post heart valve replacement & CABG, Morbid Obesity w/BMI >50. Former smoker. Clinical Indicators: Patient presented to the ED on 03/17 with a fungal rash in the groin & erosion of the foreskin secondary to the Clinton Catheter placed one week prior. Patient subsequently developed Acute Respiratory Failure and has been transferred to ICU. VS 03/17: T 97.5*, P 65, R 18, BP 83/41, PO 96 RA VS 04/02: T 96.3*, P 60, R 13 - 16, BP 90/41*, PO 89 BiPAP BNP: not done Echocardiogram Results 04/02: Mild left systolic function low normal with EF 50- 55%, Volume overload and/or elevated right ventricle pressure, Mild MR, Severe TR, No Pericardial effusion. Chest X Ray 02/27: Cardiomegaly, correlate to exclude pulmonary vascular congestion. Chest X Ray 03/02: Diffuse pleural-parenchymal changes could be on the basis of CHF or atypical pneumonia. Treatment 03/17: IV fluid 1,000 mls @ 999 mls/hr, IV Rocephin, po Lasix 40 mg daily, INH Symbicort. 03/20: O2 2Lnc for PO 96-97. 04/02: BiPAP, PO 89-93. In your professional opinion, can you please clarify the acuity and type of CHF if known? Heart Failure is ruled out xxxx Heart Failure is ruled in, please specify type & acuity: Systolic Heart Failure: Acute Chronic Acute on Chronic Other Heart Failure Acute Chronic Acute on Chronic Unable to Determine Other, please specify If ruled in, was Heart Failure Present on Admission: Yes or No (Last Revision: August 2017) MTDD
[2020-04-03 16:54] LABS: Glucose,Whole Blood 109 mg/dL (75-99)
--- NOTE | 2020-04-03 17:53 | P.PN ---
Subjective Progress Note Date: 04/03/20 Te Brady is a 74-year-old male patient who presented to the ER from rehab with complaints of increased O fungal rash in the groin eroding foreskin secondary to catheter. Patient also had acute kidney injury and elevated INR. Patient's past medical history of atrial fibrillation which she is maintained on Coumadin, heart failure, COPD, dementia, hypertension, myocardial infarction, osteoarthritis with sleep apnea in which he uses home CPAP machine, pacemaker, anxiety and heart valve replacement. Patient's creatinine upon admission 3.07 and bun 77 potassium also elevated at 56. INR greater than 10. UA positive for the same Estrace. Chest x-ray completed showing T over the left lower lung r egion correlate for atelectasis or pneumonia. At this time patient has been started on Rocephin and Levaquin for IV antibiotics. Urology services have been consulted. Nephrology service is consulted for acute kidney injury. Potassium lowering cocktail given per nephrology. Dr. zavala and has been consulted for pulmonary due to possible pneumonia. Wound and blood cultures ordered. at this time patient denies chest pain or shortness of breath. Patient denies nausea vomiting or diarrhea. On 03/19/2020 patient was seen and examined on the medical floor he is alert and oriented 3 in no apparent distress, he is complaining of diarrhea with stool incontinence, otherwise he denies any complaints there is no fever or chills no headache or dizziness, no chest pain no shortness of breath no cough no nausea or vomiting no abdominal pain no blood in the stools no burning with urination no frequency or urgency and no hematuria 03/20/2020 patient was seen and examined on the medical floor he is alert and oriented 3 in no apparent distress there is no fever or chills no headache or d izziness no chest pain no shortness of breath no cough no nausea or vomiting no abdominal pain no diarrhea no blood in the stools no burning with urination no frequency or urgency and no hematuria. Clinton catheter has been removed and patient is able to urinate. INR is still elevated patient will be getting vitamin K 2.5 mg by mouth 1 time today on 03/21/2020 patient is alert and oriented 3currently sitting up in chair. INR today 3.5. patient maintained on meropenem and vancomycin for IV an tibiotics. At that time Clinton catheter has been removed to patient voiding independently will follow-up outpatient with urology for possible cystoscopy. At this time patient denies chest pain or shortness of breath. Patient denies nausea vomiting or diarrhea. Patient denies any urinary burning or frequency On 03/22/2020 patient was seen and examined on the medical floor he is alert and oriented 3 in no distress, he had the midline placed today and antibiotic were resumed, white blood count is elevated at 13.5, there is no fever or chills no headache or dizziness no chest pain no shortness of breath no cough no nausea or vomiting no abdominal pain no diarrhea and no urinary symptoms. On 03/23/2020 patient was seen and examined on the medical floor he is alert and oriented 3 in no apparent distress there is no fever or chills no headache or dizziness no chest pain no shortness of breath no cough no nausea or vomiting no abdominal pain no diarrhea and no urinary symptoms white blood count remains elevated, patient was resumed on IV antibiotic via midline will continue to monitor during this weekend. On 03/24/2020 patient was seen and examined on the medical floor he is alert and oriented in no apparent distress he is sitting up in chair he denies any complaints at this time there is no fever or chills no headache or dizziness no chest pain no shortness of breath no palpitation no cough no nausea or vomiting no abdominal pain no diarrhea no blood in the stools no burning with urination no frequency or urgency and no hematuria. On 03/25/2020 patient was seen and examined on the medical floor he is alert and oriented in no distress he denies any symptoms at this time, he is sitting up in a chair eating his meal, there is no fever or chills no headache or dizziness no chest pain no shortness of breath no cough no nausea or vomiting no abdominal pain no diarrhea no blood in the stools no burning with urination no frequency or urgency and no hematuria. Infectious disease recommendation reviewed patient has a midline he will need to go to the group home on IV antibiotic. on 03/26/2020 patient was seen and examined on the medical floor he is alert and oriented 3 in no distress he is complaining of generalized weakness otherwise no specific complaints there is no fever or chills no headache or dizziness no chest pain no shortness of breath no cough no nausea or vomiting no abdominal pain no diarrhea and no urinary symptoms, he remains on IV antibiotic white blood count is still elevated . Patient has a midline in the right arm, he will need to continue IV antibiotic at the group home, he is urinating well without Clinton catheter. On 03/27/2020 patient was seen and examined on the medical floor he is alert and oriented 3 in no distress there is no fever or chills no headache or dizziness no chest pain no shortness of breath no cough no nausea or vomiting no abdominal pain no diarrhea no blood in the stools no burning with urination no frequency or urgency and no hematuria is still complaining of generalized weakness On 03/28/2020 patient is alert and oriented 3. Discussed case with Dr. Walt Aviles and continue daptomycin recommending keeping patient 24 more hours to watch kidney function. Likely discharge to [facility] tomorrow. Patient denies chest pain or shortness of breath. Patient denies nausea vomiting or diarrhea. Patient denies any urinary burning or frequency. Did discuss case also with nephrology services recommending lasix twice a day upon discharge On 03/29/2020 patient was seen and examined on the medical floor he is alert and oriented 3 in no apparent distress there is no fever or chills no headache or dizziness no chest pain no shortness of breath no cough no nausea or vomiting no abdominal pain no diarrhea no blood in the stools no burning with urination no frequency or urgency and no hematuria. Kidney function is slightly worse today. At this time patient is stable, awaiting clearance from infectious disease and nephrology, and the recommendation for discharge antibiotics On 03/30/2020 patient had low temp all-night. Rectal temps were obtained and patient was placed on bear hugger. Patient is alert and oriented. At this time critical care services have been consulted. Chest x-ray urine culture and blood cultures ordered. Did discuss case with infectious disease updated outpatient physician. Blood pressure and heart rate have remained stable. Lactic acid was checked in stable at 1.0. Kidney function slightly worse today. Continue to monitor patient very closely critical care infectious disease and nephrology services are following. On 03/31/2020 patient was seen and examined on the medical floor he is alert and oriented 3 in no distress, he is still having episodes of hypothermia, there is no fever or chills no headache or dizziness no chest pain no shortness of breath no cough no nausea or vomiting no abdominal pain no diarrhea and no urinary symptoms. Medication and labs were reviewed, input from multiple consultants reviewed in details. On 04/01/2020 patient is alert and oriented 3. Creatinine increasing. Patient also having low pressures. Recommendations per nephrology to transfer patient to ICU and start Levophed. 2-D echo cardiology consult placed also to rule out cardiorenal syndrome. Discussed case with critical care team and nurse practitioner, updated on nephrology recommendation on ICU transfer and initiation of Levophed. At this time patient denies chest pain. Patient denies shortness breath. Patient denies nausea vomiting or diarrhea. Patient denies any urinary burning or frequency. Critical care, nephrology, infectious disease already following. Cardiology consult placed. On 04/02/2020 patient was seen and examined he continued to have episodes of hypothermia and hypotension he was reevaluated by critical care Dr. Gomez today at this time patient will be transferred to intensive care unit. Clinically patient is alert and oriented he denies any chest pain he has occasional shortness of breath no headache or dizziness no nausea vomiting or abdominal pain and no urinary symptoms. On 04/03/2020 patient was seen and examined in the ICU he is alert responsive maintained on BiPAP, patient is maintained on IV fluid and IV vasopressors, he is also maintained on IV antibiotics daptomycin and Diflucan and meropenem and Flagyl his condition has stabilized since yesterday. Objective - Vital Signs Vital signs: Vital Signs Temp 94 F L 04/03/20 11:00 Pulse 60 04/03/20 17:00 Resp 10 L 04/03/20 17:00 BP 95/43 04/02/20 22:27 Pulse Ox 97 04/03/20 17:01 Intake & Output 04/02/20 04/03/20 04/03/20 18:59 06:59 18:59 Intake Total 2173.761 436.359 408.212 Output Total 30 1015 50 Balance 2143.761 -578.641 358.212 Weight 182.3 kg 179.9 kg 179.9 kg Intake: IV 2100 160 140 Sodium Chloride 0.9% 1, 160 140 000 ml @ 20 mls/hr IV . Q24H [facility] Rx#:[id number] Sodium Chloride 0.9% 1, 2100 000 ml @ 999 mls/hr IV . Q1H1M [facility] Rx#:[id number] Intake, IV Titration 73.761 276.359 168.212 Amount Meropenem 1 gm In Sodium 100 100 Chloride 0.9% 100 ml @ 33 .3 mls/hr IVPB Q12HR [facility] Rx#:[id number] Norepinephrine 32 mg In 73.761 176.239 67.898 Sodium Chloride 0.9% 218 ml @ 0.05 MCG/KG/MIN 2. 883 mls/hr IV .Q24H [facility] Rx#:[id number] Sodium Chloride 0.9% 50 0.12 0.314 ml @ Titrate IVPB .Q0M [facility] with Vasopressin 20 unit Rx#:[id number] Oral 100 Output: Urine 30 15 50 Hemodialysis 1000 Other: Voiding Method Indwelling Catheter Indwelling Catheter Indwelling Catheter # Voids 1 ABP, PAP, CO, CI - Last Documented Arterial Blood Pressure 81/49 - Exam Head normocephalic and atraumatic Neck supple no JVD no goiter Lungs clear to auscultation bilaterally no wheezing or crackles Heart irregular rate. known atrial fibrillation Abdomen is soft nontender nondistended positive bowel sounds no hepatosplenomegaly Extremities no edema no cyanosis or clubbing Neuro alert and orientated to 2. Dementia Drainage noted to penile area around catheter. Erosion to groin area. - Labs CBC & Chem 7: 04/03/20 03:00 04/03/20 03:00 Labs: Abnormal Lab Results - Last 24 Hours (Table) 04/03/20 04/03/20 04/03/20 Range/Units 03:00 03:00 03:00 WBC 21.8 H (3.8-10.6) k/uL RBC 3.16 L (4.30-5.90) m/uL Hgb 10.1 L (13.0-17.5) gm/dL Hct 34.8 L (39.0-53.0) % MCV 110.1 H (80.0-100.0) fL MCHC 29.0 L (31.0-37.0) g/dL RDW 18.5 H (11.5-15.5) % Neutrophils # (Manual) 19.60 H (1.3-7.7) k/uL Metamyelocytes # (Man) 0.44 H (0) k/uL Nucleated RBCs 8 H (0-0) /100 WBC Macrocytosis Marked A PT 23.3 H (9.0-12.0) sec INR 2.4 H (<1.2) ABG pH (7.35-7.45) ABG pCO2 (35-45) mmHg ABG pO2 (83-108) mmHg ABG HCO3 (21-25) mmol/L ABG O2 Saturation (94-97) % Potassium 5.7 H (3.5-5.1) mmol/L Carbon Dioxide 20 L (22-30) mmol/L BUN 85 H (9-20) mg/dL Creatinine 3.97 H (0.66-1.25) mg/dL Glucose 108 H (74-99) mg/dL POC Glucose (mg/dL) (75-99) mg/dL Calcium 8.0 L (8.4-10.2) mg/dL AST 82 H (17-59) U/L Alkaline Phosphatase 130 H (38-126) U/L Total Protein 6.1 L (6.3-8.2) g/dL Albumin 2.9 L (3.5-5.0) g/dL 04/03/20 04/03/20 04/03/20 Range/Units 07:13 08:05 11:25 WBC (3.8-10.6) k/uL RBC (4.30-5.90) m/uL Hgb (13.0-17.5) gm/dL Hct (39.0-53.0) % MCV (80.0-100.0) fL MCHC (31.0-37.0) g/dL RDW (11.5-15.5) % Neutrophils # (Manual) (1.3-7.7) k/uL Metamyelocytes # (Man) (0) k/uL Nucleated RBCs (0-0) /100 WBC Macrocytosis PT (9.0-12.0) sec INR (<1.2) ABG pH 7.13 L* (7.35-7.45) ABG pCO2 56 H (35-45) mmHg ABG pO2 130 H (83-108) mmHg ABG HCO3 18 L (21-25) mmol/L ABG O2 Saturation 97.9 H (94-97) % Potassium (3.5-5.1) mmol/L Carbon Dioxide (22-30) mmol/L BUN (9-20) mg/dL Creatinine (0.66-1.25) mg/dL Glucose (74-99) mg/dL POC Glucose (mg/dL) 120 H 142 H (75-99) mg/dL Calcium (8.4-10.2) mg/dL AST (17-59) U/L Alkaline Phosphatase (38-126) U/L Total Protein (6.3-8.2) g/dL Albumin (3.5-5.0) g/dL 04/03/20 Range/Units 16:52 WBC (3.8-10.6) k/uL RBC (4.30-5.90) m/uL Hgb (13.0-17.5) gm/dL Hct (39.0-53.0) % MCV (80.0-100.0) fL MCHC (31.0-37.0) g/dL RDW (11.5-15.5) % Neutrophils # (Manual) (1.3-7.7) k/uL Metamyelocytes # (Man) (0) k/uL Nucleated RBCs (0-0) /100 WBC Macrocytosis PT (9.0-12.0) sec INR (<1.2) ABG pH (7.35-7.45) ABG pCO2 (35-45) mmHg ABG pO2 (83-108) mmHg ABG HCO3 (21-25) mmol/L ABG O2 Saturation (94-97) % Potassium (3.5-5.1) mmol/L Carbon Dioxide (22-30) mmol/L BUN (9-20) mg/dL Creatinine (0.66-1.25) mg/dL Glucose (74-99) mg/dL POC Glucose (mg/dL) 109 H (75-99) mg/dL Calcium (8.4-10.2) mg/dL AST (17-59) U/L Alkaline Phosphatase (38-126) U/L Total Protein (6.3-8.2) g/dL Albumin (3.5-5.0) g/dL Microbiology - Last 24 Hours (Table) 04/02/20 11:00 Blood Culture - Preliminary Blood No Growth after 24 hours 03/30/20 10:26 Blood Culture - Preliminary Blood No Growth after 96 hours 04/02/20 10:17 Urine Culture - Final Urine,Voided Assessment and Plan Assessment: 1. Infection around catheter site with penile erosion. wound culture showing MRSA Enterobacter cloacae. 2. MRSA bacteremia repeat blood cultures ordered, 3. Gram-negative urinary tract infection related to ESBL Proteus mirabilis. 4. Acute kidney injury with elevated potassium. Creatinine elevated at 3.06 upon admission. Continue normal saline at 50. Nephrology services are following 5. Supratherapeutic INR. Hold Coumadin and recheck. patient did receive vitamin K. Current INR 3.5 6. Possible pneumonia. Patient started on Levaquin and Rocephin. Pulmonary service is consulted 7. History of insulin-dependent diabetes mellitus 8. History of essential hypertension 9. History of hyperlipidemia. Maintained on statin 10. History of stroke with suppressive aphasia 11. History of morbid obesity 12. History of urinary retention and difficulty with Clinton insertion. per urology servicesFoley catheter has been removed patient advised follow-up in one month with urology services for cystoscopy 13. Dementia. Maintained on Aricept and Namenda 14. Diarrhea will check stools for C. diff. 15. Nurse reporting that patient is making statements about being depressed, his is also concerned in that regard, at this time will restart patient on Wellbutrin SR 150 mg by mouth once daily 16. Sepsis with hypothermia and hypotension , currently he is in ICU maintained on BiPAP, IV fluids and IV antibiotics he is improving gradually DVT prophylaxis SCDs due to subtherapeutic INR. GI prophylaxis Protonix Infectious disease, nephrology and critical care service is consulted patient remains on daptomycin and Flagyl repeat blood cultures and urine and chest x-ray ordered continue Shahnazog cano for low temp Nephrology services recommend transfer to intensive care unit and initiation of Levophed for blood pressure support, this was discussed with the critical care team. Per critical care team will evaluate patient. 2-D echo and cardiology consult placed
[2020-04-03] MEDS ORDERED: WARFARIN 2 MG TAB PO ONE (18:00)
[2020-04-03 19:30] LABS: Calcium 7.9 mg/dL (8.4-10.2); Magnesium 2.7 mg/dL (1.6-2.3); Potassium 5.1 mmol/L (3.5-5.1)
[2020-04-03] MEDS: DONEPEZIL 10 MG TAB PO SCH (20:11)
[2020-04-03] MEDS: TAMSULOSIN 0.4 MG CAP.ER.24H PO SCH (20:11)
[2020-04-03] MEDS: SODIUM CHLORIDE 0.9% 1,000 ML IV SCH (20:12)
--- NOTE | 2020-04-03 22:25 | PN ---
PROGRESS NOTE DATE OF SERVICE: 04/03/2020 REASON FOR FOLLOWUP: 1. MRSA bacteremia secondary to skin soft tissue source. 2. Possible pneumonia. INTERVAL HISTORY: Patient is currently afebrile. Though hypothermic rather. The patient still requiring high dose pressor support to maintain his blood pressure. He is slightly more awake and alert, and comfortable today. Denies any chest pain. Occasional cough. No abdominal pain or diarrhea. PHYSICAL EXAMINATION: Blood pressure is 81/49 with a pulse of 50, temperature 98.4. He is 96% on 4 L nasal cannula. General description is an elderly male lying in bed in no distress. Respiratory system: Unlabored breathing, decreased breath sounds at the base. No wheeze. HEART: S1, S2. Regular rate and rhythm. ABDOMEN: Soft. No tenderness. LABS: BUN of 69, creatinine 3.68, hemoglobin is 10.3, white count 21.8. Blood culture repeat has been negative so far. DIAGNOSTIC IMPRESSION AND PLAN: 1. Patient with MRSA bacteremia blood culture negative, on daptomycin because of his . 2. Patient with sepsis, hypothermia. No clear focal possible pneumonia and urinary tract infection was adequately treated, antibiotic has been switched to meropenem, covered with Diflucan to continue. Flagyl will be discontinued and monitor clinical course closely. MMODL / IJN: [id number] /
[2020-04-03 23:48] LABS: ABG Base Excess -7.3 mmol/L; ABG HCO3 22 mmol/L (21-25); ABG PCO2 69 mmHg (35-45); ABG PH 7.11 (7.35-7.45); ABG PO2 109 mmHg (83-108); ABG TCO2 24 mmol/L (19-24)
[2020-04-04] MEDS: HYDROCORTISONE SUCCINATE 100 MG/2 ML VIAL IV SCH ×3 (00:37→18:42)
[2020-04-04] MEDS: SODIUM CHLORIDE 0.9% 50 ML with VASOPRESSIN 20 UNIT IVPB SCH ×2 (04:44)
[2020-04-04 06:42] LABS: INR 2.5 (<1.2)
[2020-04-04 06:43] LABS: Prothrombin Time 24.5 sec (9.0-12.0)
[2020-04-04 06:56] LABS: Anisocytosis Slight; HCT 34.2 % (39.0-53.0); Hypochromasia Marked; MCH 31.6 pg (25.0-35.0); MCHC 29.3 g/dL (31.0-37.0); MCV 108.1 fL (80.0-100.0); Macrocytosis Marked; Platelet Count 218 k/uL (150-450); Poikilocytosis Moderate; RBC 3.17 m/uL (4.30-5.90); RDW 18.5 % (11.5-15.5)
[2020-04-04 07:13] LABS: Albumin 1.4 g/dL (3.5-5.0); Potassium 3.3 mmol/L (3.5-5.1); Total Bilirubin 0.8 mg/dL (0.2-1.3); Total Protein 3.5 g/dL (6.3-8.2)
[2020-04-04] MEDS: METOPROLOL SUCCINATE (ER) 50 MG TAB.ER.24H PO SCH (07:23)
[2020-04-04 07:25] LABS: Calcium 4.1 mg/dL (8.4-10.2)
[2020-04-04 07:30] LABS: ABG PH 7.08 (7.35-7.45)
[2020-04-04] MEDS: MIDODRINE 5 MG TAB PO SCH ×2 (07:44→18:42)
[2020-04-04] MEDS: CHOLECALCIFEROL 1,000 UNIT TAB PO SCH (07:44)
[2020-04-04] MEDS: FERROUS SULFATE 325 MG TAB PO SCH (07:44)
[2020-04-04] MEDS: PANTOPRAZOLE 40 MG TABLET PO SCH (07:44)
[2020-04-04] MEDS: MAGNESIUM OXIDE 400 MG TAB PO SCH (07:44)
[2020-04-04] MEDS: ALBUTEROL HFA INHALER INHALATION PRN ×3 (07:53→16:45)
[2020-04-04] MEDS: SYMBICORT 160-4.5 MCG INHALER INHALATION SCH ×2 (07:56→23:23)
[2020-04-04 08:24] LABS: Neutrophils % (M) 89 %; Nucleated Red Blood Cells 18 /100 WBC (0-0); Total Cells Counted 200
[2020-04-04 08:25] LABS: Lymphocytes # (M) 0.88 k/uL (1.0-4.8); Mixed Population RBC Present; Monocytes # (M) 1.53 k/uL (0-1.0); Neutrophils # (M) 19.49 k/uL (1.3-7.7); Polychromasia Present; WBC 21.9 k/uL (3.8-10.6)
[2020-04-04 08:34] LABS: Anisocytosis Slight; HCT 34.3 % (39.0-53.0); HGB 10.3 gm/dL (13.0-17.5); Hypochromasia Marked; MCH 32.9 pg (25.0-35.0); MCHC 29.9 g/dL (31.0-37.0); MCV 109.9 fL (80.0-100.0); Macrocytosis Marked; Mean Platelet Volume 8.6; Platelet Count 204 k/uL (150-450); Poikilocytosis Moderate; RBC 3.12 m/uL (4.30-5.90); RDW 18.5 % (11.5-15.5)
--- NOTE | 2020-04-04 08:34 | P.PN ---
Subjective Patient is seen in follow-up for acute kidney injury. Patient's renal function did improve initially upon admission but worsened again. Creatinine up to 4.5 on April 02 - started on hemodialysis for severe volume overload and low urine output. Currently on 90 mics of Levophed as well as vasopressin. He is awake. Currently on 4 L high flow nasal cannula. Tolerated 2 L ultrafiltration yesterday. Vital signs: Currently on Levophed and vasopressin. Heart rate stable. General: The patient appeared well nourished and normally developed. HEENT: Head exam is unremarkable. LUNGS: Breath sounds decreased. HEART: Rate and Rhythm are regular. ABDOMEN: Soft, nontender. Obese. EXTREMITITES: 3+ edema. Objective - Vital Signs Vital signs: Vital Signs Temp 98 F 04/04/20 04:00 Pulse 60 04/04/20 07:00 Resp 24 04/04/20 07:00 BP 92/45 04/04/20 07:00 Pulse Ox 100 04/04/20 07:00 Intake & Output 04/03/20 04/04/20 04/04/20 18:59 06:59 18:59 Intake Total 558.212 442.494 20 Output Total 50 2025 0 Balance 508.212 -1582.506 20 Weight 179.9 kg Intake: IV 140 260 20 Sodium Chloride 0.9% 1, 140 260 20 000 ml @ 20 mls/hr IV . Q24H PAU Rx#:[id number] Intake, IV Titration 168.212 182.494 Amount Meropenem 1 gm In Sodium 100 Chloride 0.9% 100 ml @ 33 .3 mls/hr IVPB Q12HR PAU Rx#:[id number] Norepinephrine 32 mg In 67.898 182.102 Sodium Chloride 0.9% 218 ml @ 0.05 MCG/KG/MIN 2. 883 mls/hr IV .Q24H PAU Rx#:[id number] Sodium Chloride 0.9% 50 0.314 0.392 ml @ Titrate IVPB .Q0M PAU with Vasopressin 20 unit Rx#:[id number] Oral 250 Output: Urine 50 25 0 Hemodialysis 2000 Other: Voiding Method Indwelling Catheter Indwelling Catheter ABP, PAP, CO, CI - Last Documented Arterial Blood Pressure 81/40 - Labs CBC & Chem 7: 04/04/20 05:30 04/04/20 05:30 Labs: Abnormal Lab Results - Last 24 Hours (Table) 04/02/20 04/03/20 04/03/20 Range/Units 12:37 11:25 16:52 WBC (3.8-10.6) k/uL RBC (4.30-5.90) m/uL Hgb (13.0-17.5) gm/dL Hct (39.0-53.0) % MCV (80.0-100.0) fL MCHC (31.0-37.0) g/dL RDW (11.5-15.5) % Neutrophils # (Manual) (1.3-7.7) k/uL Lymphocytes # (Manual) (1.0-4.8) k/uL Monocytes # (Manual) (0-1.0) k/uL Nucleated RBCs (0-0) /100 WBC Macrocytosis PT (9.0-12.0) sec INR (<1.2) ABG pH 7.08 L* (7.35-7.45) ABG pCO2 (35-45) mmHg ABG pO2 (83-108) mmHg ABG O2 Saturation (94-97) % Potassium (3.5-5.1) mmol/L Chloride (98-107) mmol/L Carbon Dioxide (22-30) mmol/L BUN (9-20) mg/dL Creatinine (0.66-1.25) mg/dL Glucose (74-99) mg/dL POC Glucose (mg/dL) 142 H 109 H (75-99) mg/dL Calcium (8.4-10.2) mg/dL Magnesium (1.6-2.3) mg/dL AST (17-59) U/L Total Protein (6.3-8.2) g/dL Albumin (3.5-5.0) g/dL 04/03/20 04/03/20 04/04/20 Range/Units 19:18 23:39 05:30 WBC 21.9 H (3.8-10.6) k/uL RBC 3.17 L (4.30-5.90) m/uL Hgb 10.0 L (13.0-17.5) gm/dL Hct 34.2 L (39.0-53.0) % MCV 108.1 H (80.0-100.0) fL MCHC 29.3 L (31.0-37.0) g/dL RDW 18.5 H (11.5-15.5) % Neutrophils # (Manual) 19.49 H (1.3-7.7) k/uL Lymphocytes # (Manual) 0.88 L (1.0-4.8) k/uL Monocytes # (Manual) 1.53 H (0-1.0) k/uL Nucleated RBCs 18 H (0-0) /100 WBC Macrocytosis Marked A PT (9.0-12.0) sec INR (<1.2) ABG pH 7.11 L* (7.35-7.45) ABG pCO2 69 H (35-45) mmHg ABG pO2 109 H (83-108) mmHg ABG O2 Saturation 98.0 H (94-97) % Potassium (3.5-5.1) mmol/L Chloride (98-107) mmol/L Carbon Dioxide (22-30) mmol/L BUN 69 H (9-20) mg/dL Creatinine 3.68 H (0.66-1.25) mg/dL Glucose 113 H (74-99) mg/dL POC Glucose (mg/dL) (75-99) mg/dL Calcium 7.9 L (8.4-10.2) mg/dL Magnesium 2.7 H (1.6-2.3) mg/dL AST (17-59) U/L Total Protein (6.3-8.2) g/dL Albumin (3.5-5.0) g/dL 04/04/20 04/04/20 Range/Units 05:30 05:30 WBC (3.8-10.6) k/uL RBC (4.30-5.90) m/uL Hgb (13.0-17.5) gm/dL Hct (39.0-53.0) % MCV (80.0-100.0) fL MCHC (31.0-37.0) g/dL RDW (11.5-15.5) % Neutrophils # (Manual) (1.3-7.7) k/uL Lymphocytes # (Manual) (1.0-4.8) k/uL Monocytes # (Manual) (0-1.0) k/uL Nucleated RBCs (0-0) /100 WBC Macrocytosis PT 24.5 H (9.0-12.0) sec INR 2.5 H (<1.2) ABG pH (7.35-7.45) ABG pCO2 (35-45) mmHg ABG pO2 (83-108) mmHg ABG O2 Saturation (94-97) % Potassium 3.3 L (3.5-5.1) mmol/L Chloride 124 H (98-107) mmol/L Carbon Dioxide 14 L (22-30) mmol/L BUN 49 H (9-20) mg/dL Creatinine 2.33 H (0.66-1.25) mg/dL Glucose 64 L (74-99) mg/dL POC Glucose (mg/dL) (75-99) mg/dL Calcium 4.1 L* (8.4-10.2) mg/dL Magnesium (1.6-2.3) mg/dL AST 72 H (17-59) U/L Total Protein 3.5 L (6.3-8.2) g/dL Albumin 1.4 L (3.5-5.0) g/dL Microbiology - Last 24 Hours (Table) 04/02/20 11:00 Blood Culture - Preliminary Blood No Growth after 24 hours 03/30/20 10:26 Blood Culture - Preliminary Blood No Growth after 96 hours 04/02/20 10:17 Urine Culture - Final Urine,Voided Assessment and Plan Plan: Assessment: 1. Acute kidney injury secondary to ATN secondary to septic shock. Started on hemodialysis April 02 for severe volume overload and low urine output. Urine output 0-10 mL an hour. No evidence of urinary retention. No clear hydronephrosis noted on kidney ultrasound. 2. Hyperkalemia secondary to acute kidney injury. Improved postdialysis. 3. Septic shock maintained on Levophed, vasopressin. Low dose cosyntropin stimulation test was done earlier this admission and a cortisol level did rise post stimulation; however he was started on Cortef due to persistent hypotension. Now on stress dose steroids. 4. Volume overload. 5. Acute hypercapnic respiratory failure. 6. Penile erosion. Urology following. Plan: Maintain Lasix 80 mg IV twice daily. Third treatment of SLED today with goal 2 liters ultrafiltration if able to tolerate. Continue to monitor renal function and urine output. Repeat CMP as the one from this morning appears to be lab error.
[2020-04-04 08:46] LABS: Albumin 2.9 g/dL (3.5-5.0); Calcium 7.5 mg/dL (8.4-10.2); Total Bilirubin 1.7 mg/dL (0.2-1.3); Total Protein 6.2 g/dL (6.3-8.2)
[2020-04-04] MEDS ORDERED: SODIUM BICARB 8.4% 50 ML SYR (1 MEQ/ML) IV STA (08:57)
--- NOTE | 2020-04-04 09:18 | PN ---
PROGRESS NOTE Mr. Brady is a 74-year-old male who presented with sepsis. He has history of atrial fibrillation, permanent pacemaker implantation, aortic valve replacement, coronary artery disease. He is receiving dialysis with removal of fluid. He continued to be hypotensive requiring pressors. He is awake but lethargic at times, opening his eyes to further stimulation and answering questions. He denies any chest pain. He was more hypotensive yesterday with increasing of his vasopressors. He had evidence of sepsis and septic shock on presentation. He continues to be at this time on Aricept, Lasix 80 mg IV q.12 hours, Solu- Cortef, metoprolol succinate 50 mg daily, midodrine, Coumadin. PHYSICAL EXAMINATION: Blood pressure running in the 80s and 90s, he is on pressors. Heart rate in the 60s. LUNGS: No wheezes anteriorly. HEART: S1, S2 with prosthetic aortic sound and systolic murmur, no diastolic murmur. ABDOMEN: Soft, obese. There is an abdominal wound noted. EXTREMITIES: Chronic wound noted. There is an Cory wrapping in place. LAB DATA: Revealed a hemoglobin of 10 with a white blood cell 25.9, which is higher than yesterday, platelets 218. PH 7.1, pCO2 of 69, PO2 of 109. His BUN and creatinine 49 and 2.33, potassium 3.3. His calcium is 4.1. IMPRESSION: 1. Septic shock with hypotension requiring vasopressors. 2. Respiratory failure with hypercapnic respiratory failure. 3. no evidence of cardiac ischemia. 4. Acute renal injury requiring dialysis. 5. Status post aortic valve replacement. 6. Status post coronary artery bypass grafting. 7. Post pacemaker implantation. 8. Atrial fibrillation. 9. History of stroke. RECOMMENDATION: From the cardiac standpoint, will continue supportive care. He remains quite unstable requiring high dose of pressors. His rate is controlled at this time and there is no evidence of ventricular tachycardia. He may require dialysis today. Depending on his progress, further recommendation will be made. MMODL / IJN: [id number] / MTDD
[2020-04-04] MEDS: FUROSEMIDE 10 MG/ML 10 ML VIAL IV SCH ×2 (10:36→22:44)
[2020-04-04] MEDS: MEROPENEM 1 GM in SODIUM CHLORIDE 0.9% 100 ML IVPB SCH ×2 (10:36→22:44)
[2020-04-04] MEDS: buPROPion SR 150 MG TABLET.ER PO SCH (10:38)
[2020-04-04] MEDS: FLUCONAZOLE 100 MG TAB PO SCH (10:38)
[2020-04-04] MEDS: MEMANTINE 5 MG TAB PO SCH ×2 (10:39→22:43)
[2020-04-04 10:49] LABS: Albumin 2.9 g/dL (3.5-5.0); Bilirubin, Conjugated 0.3 mg/dL (0.0-0.3); Bilirubin, Delta 0.7 mg/dL (0.0-0.2); Bilirubin,Unconjugated 0.6 mg/dL (0.0-1.1); Total Bilirubin 1.6 mg/dL (0.2-1.3); Total Protein 6.1 g/dL (6.3-8.2)
[2020-04-04 11:55] LABS: Basophils # (M) 0.45 k/uL (0-0.2); Lymphocytes # (M) 0.68 k/uL (1.0-4.8); Monocytes # (M) 1.36 k/uL (0-1.0); Neutrophils # (M) 20.66 k/uL (1.3-7.7); Neutrophils % (M) 91 %; Nucleated Red Blood Cells 10 /100 WBC (0-0); Polychromasia Present; Total Cells Counted 200; WBC 22.7 k/uL (3.8-10.6)
[2020-04-04 11:56] LABS: Mixed Population RBC Present
--- NOTE | 2020-04-04 15:05 | P.PN ---
Subjective Progress Note Date: 04/04/20 Sepsis secondary to penile erosion with secondary cellulitis On 04/02/2020, the patient got transferred to the intensive care unit. Earlier this morning, the patient was found to be hypothermic, hypotensive and the patient also having diminished level of consciousness. I saw the patient and I noted that the patient is also developed an acute kidney injury in the creatinine has been on a gradual rise over the past few days is currently up to 4.52. An immediate blood gases was done and the patient was found to have severe asked her acidosis. PH was at 7. 06 with a pCO2 of 77 acute of 161. At that point, the patient was placed on a BiPAP and BiPAP pressures were at 14/6 cm of water and FiO2 is being titrated to maintain a saturation above 90%. Subsequent blood gases showed some limited improvement with a pH of 7.09 and a pCO2 of 72 and pO2 of 99. The patient has significant diminished level of consciousness. He looks quite lethargic and obtunded. I contacted the . We radiatio for the need for intubation mechanical ventilation. The wanted to come to the hospital discussed this matter further. As such the patient is currently on a BiPAP for respiratory support. The patient was given a liter of IV fluids on the floor with normal saline and currently the patient is receiving IV fluids at the rate of 75 mL an hour. The patient was also started on norepinephrine infusion for blood pressure support. Antibiotic modification was done and the patient was started on IV Merrem in combination to Flagyl and daptomycin. His cardiac rhythm is sinus and the patient is having frequent PACs. INR therapeutic for now as the patient is on long-term articulation with warfarin. Note that the patient had a penile ulcer/infection with secondary cellulitis. The cultures were obtained earlier showed MRSA and Enterobacter and MRSA was also cultured and the blood on 03/17/2020. In addition to that the patient positive cultures for Proteus mirabilis in the urine from 03/17/2020. Anaerobes are also cultured from the penile wound. Most recent temperature is 94.4. Nephrology is on the case regarding acute kidney injury and the patient is oliguric and the patient is being considered for hemodialysis at this point in time. He is morbidly obese and he carries a BMI 53. On 04/03/2020 the patient is being seen for a follow-up. The patient is improved considerably compared to yesterday. Note that the patient came in to the ICU with septic shock. The patient was altered mentally and the patient was also having severe hypotension and he was hypothermic. Overnight, the patient was suspected IV fluids. The patient was also given pressors and the patient was on high-dose norepinephrine infusion running at 60 mg per minute and vasopressin at 0.03 units an hour. The patient was also supported with BiPAP throughout the night. He underwent dialysis also. This morning, there is marked improvement in the patient's overall mentation. His much more awake and alert. Repeat blood gases was done on the patient was on 10 L of oxygen by nasal cannula and the patient had a pH of 7.12 with a pCO2 55 and pO2 1:30. Note that during hemodialysis, the patient had a 1 L of ultrafiltration also. He is on a broad-spectrum antibiotics. Currently on a combination of meropenem, daptomycin, Flagyl and Diflucan. Hemodialysis to follow today. He is much more awake and alert. He is tolerating diet. The white cell count is up to 21.8 with a hemoglobin of 10.1. Based on the electrolytes, the patient's potassium level of 5.7. BUN is 85 with a creatinine of 3.97. The UA was abnormal and urine culture and blood cultures still pending for now. Furthermore during the day, the patient has been weaned down to 4 L of oxygen by nasal cannula. His current pulse ox 97%. His chest x-ray is showing mild bibasilar pulmonary infiltrates which is improved compared to yesterday and the patient has some mild cardiomegaly. On 04/04/2020, the patient again doing poorly. He remains in septic shock requiring high doses of pressors. The patient is also more lethargic and somnolent compared to yesterday. He is currently in 40s of oxygen by nasal cannula with pulse ox of 99%. He is profoundly hypotensive and the patient is still requiring high dose of Levothroid which is running at 90 g per minute and the patient is also on vasopressin at 0.04 units an hour and the patient on normal saline at 20 an hour. The patient remains on stress dose hydrocortisone. Antibiotic coverage essentially the same and the patient remains on a combination of daptomycin, meropenem, Flagyl and Diflucan. Repeat cultures of been all negative. Temperature has improved and the patient is not as hypothermic as he was yesterday. On his blood work, the patient continues to have a component of respiratory acidosis. The blood gas showed pH of 7.11 with a pCO2 of 69 and pO2 of 109. Not much different compared to yesterday's ABGs. He is not requiring BiPAP however. His BUN is at 81 with a creatinine of 4.02. His serum potassium is at 6. His serum bicarbonate 23. LFTs are slightly elevated with an AST of 141, ALT of 66, and alkaline phosphatase of 136. The patient is to undergo another session of hemodialysis today. This will be a slow low efficiency dialysis as the patient is quite hemodynamically stable. Objective - Vital Signs Vital signs: Vital Signs Temp 97.0 F L 04/04/20 13:47 Pulse 60 04/04/20 13:47 Resp 16 04/04/20 13:47 BP 115/47 04/04/20 13:47 Pulse Ox 100 04/04/20 13:00 Intake & Output 04/03/20 04/04/20 04/04/20 18:59 06:59 18:59 Intake Total 558.212 442.494 160 Output Total 50 20240 Balance 508.212 -1582.506 -2040 Weight 179.9 kg Intake: IV 140 260 160 Sodium Chloride 0.9% 1, 140 260 160 000 ml @ 20 mls/hr IV . Q24H PAU Rx#:[id number] Intake, IV Titration 168.212 182.494 Amount Meropenem 1 gm In Sodium 100 Chloride 0.9% 100 ml @ 33 .3 mls/hr IVPB Q12HR PAU Rx#:[id number] Norepinephrine 32 mg In 67.898 182.102 Sodium Chloride 0.9% 218 ml @ 0.05 MCG/KG/MIN 2. 883 mls/hr IV .Q24H PAU Rx#:[id number] Sodium Chloride 0.9% 50 0.314 0.392 ml @ Titrate IVPB .Q0M PAU with Vasopressin 20 unit Rx#:[id number] Oral 250 Output: Urine 50 25 0 Hemodialysis 1999 2199 Other: Voiding Method Indwelling Catheter Indwelling Catheter Indwelling Catheter ABP, PAP, CO, CI - Last Documented Arterial Blood Pressure 113/48 - Exam GENERAL EXAM: Diminished level of consciousness and the patient is obtunded and somnolent 74-year-old white male, awake and alert and comfortable on 4 L of oxygen by nasal cannula. HEAD: Normocephalic/atraumatic. EYES: Normal reaction of pupils, equal size. Conjunctiva pink, sclera white. NOSE: Clear with pink turbinates. THROAT: No erythema or exudates. NECK: No masses, no JVD, no thyroid enlargement, no adenopathy. CHEST: No chest wall deformity. Symmetrical expansion. LUNGS: Equal air entry with bibasilar crackles. The patient is currently on BiPAP for respiratory support. CVS: Regular rate and rhythm, normal S1 and S2, no gallops, no murmurs, no rubs ABDOMEN: Soft, nontender. No hepatosplenomegaly, normal bowel sounds, no guarding or rigidity. The patient has a large anterior abdominal wound from previous abdominal surgeries. EXTREMITIES: No clubbing, there is edema bilaterally and the patient has chronic wounds and ulcerations in addition to that there is diminished pulses in all 4 extremities. The penile also seems to be improving and there is no purulent drainage at this point in time and the patient has no scrotal cellulitis. There is evidence of scrotal edema. MUSCULOSKELETAL: Muscle tone is markedly diminished in all 4 extremities. SPINE: No scoliosis or deformity SKIN: Bilateral abdominal ulcerations, and maceration with excoriation, left medial calcaneal ulceration CENTRAL NERVOUS SYSTEM: Somnolent and sleepy at arousable as the patient is moving all 4 extremities without any limitation. He has diminished strength in all 4 extremities and there is global weakness. - Labs CBC & Chem 7: 04/04/20 08:20 04/04/20 08:20 Labs: Abnormal Lab Results - Last 24 Hours (Table) 04/02/20 04/03/20 04/03/20 Range/Units 12:37 16:52 19:18 WBC (3.8-10.6) k/uL RBC (4.30-5.90) m/uL Hgb (13.0-17.5) gm/dL Hct (39.0-53.0) % MCV (80.0-100.0) fL MCHC (31.0-37.0) g/dL RDW (11.5-15.5) % Neutrophils # (Manual) (1.3-7.7) k/uL Lymphocytes # (Manual) (1.0-4.8) k/uL Monocytes # (Manual) (0-1.0) k/uL Basophils # (Manual) (0-0.2) k/uL Nucleated RBCs (0-0) /100 WBC Macrocytosis PT (9.0-12.0) sec INR (<1.2) ABG pH 7.08 L* (7.35-7.45) ABG pCO2 (35-45) mmHg ABG pO2 (83-108) mmHg ABG O2 Saturation (94-97) % ABG Lactic Acid (0.5-1.6) mmol/L Potassium (3.5-5.1) mmol/L Chloride (98-107) mmol/L Carbon Dioxide (22-30) mmol/L BUN 69 H (9-20) mg/dL Creatinine 3.68 H (0.66-1.25) mg/dL Glucose 113 H (74-99) mg/dL POC Glucose (mg/dL) 109 H (75-99) mg/dL Calcium 7.9 L (8.4-10.2) mg/dL Magnesium 2.7 H (1.6-2.3) mg/dL Total Bilirubin (0.2-1.3) mg/dL Delta Bilirubin (0.0-0.2) mg/dL AST (17-59) U/L ALT (4-49) U/L Alkaline Phosphatase (38-126) U/L Total Protein (6.3-8.2) g/dL Albumin (3.5-5.0) g/dL 04/03/20 04/04/20 04/04/20 Range/Units 23:39 05:30 05:30 WBC 21.9 H (3.8-10.6) k/uL RBC 3.17 L (4.30-5.90) m/uL Hgb 10.0 L (13.0-17.5) gm/dL Hct 34.2 L (39.0-53.0) % MCV 108.1 H (80.0-100.0) fL MCHC 29.3 L (31.0-37.0) g/dL RDW 18.5 H (11.5-15.5) % Neutrophils # (Manual) 19.49 H (1.3-7.7) k/uL Lymphocytes # (Manual) 0.88 L (1.0-4.8) k/uL Monocytes # (Manual) 1.53 H (0-1.0) k/uL Basophils # (Manual) (0-0.2) k/uL Nucleated RBCs 18 H (0-0) /100 WBC Macrocytosis Marked A PT (9.0-12.0) sec INR (<1.2) ABG pH 7.11 L* (7.35-7.45) ABG pCO2 69 H (35-45) mmHg ABG pO2 109 H (83-108) mmHg ABG O2 Saturation 98.0 H (94-97) % ABG Lactic Acid (0.5-1.6) mmol/L Potassium 3.3 L (3.5-5.1) mmol/L Chloride 124 H (98-107) mmol/L Carbon Dioxide 14 L (22-30) mmol/L BUN 49 H (9-20) mg/dL Creatinine 2.33 H (0.66-1.25) mg/dL Glucose 64 L (74-99) mg/dL POC Glucose (mg/dL) (75-99) mg/dL Calcium 4.1 L* (8.4-10.2) mg/dL Magnesium (1.6-2.3) mg/dL Total Bilirubin (0.2-1.3) mg/dL Delta Bilirubin (0.0-0.2) mg/dL AST 72 H (17-59) U/L ALT (4-49) U/L Alkaline Phosphatase (38-126) U/L Total Protein 3.5 L (6.3-8.2) g/dL Albumin 1.4 L (3.5-5.0) g/dL 04/04/20 04/04/20 04/04/20 Range/Units 05:30 08:20 08:20 WBC 22.7 H (3.8-10.6) k/uL RBC 3.12 L (4.30-5.90) m/uL Hgb 10.3 L (13.0-17.5) gm/dL Hct 34.3 L (39.0-53.0) % MCV 109.9 H (80.0-100.0) fL MCHC 29.9 L (31.0-37.0) g/dL RDW 18.5 H (11.5-15.5) % Neutrophils # (Manual) 20.66 H (1.3-7.7) k/uL Lymphocytes # (Manual) 0.68 L (1.0-4.8) k/uL Monocytes # (Manual) 1.36 H (0-1.0) k/uL Basophils # (Manual) 0.45 H (0-0.2) k/uL Nucleated RBCs 10 H (0-0) /100 WBC Macrocytosis Marked A PT 24.5 H (9.0-12.0) sec INR 2.5 H (<1.2) ABG pH (7.35-7.45) ABG pCO2 (35-45) mmHg ABG pO2 (83-108) mmHg ABG O2 Saturation (94-97) % ABG Lactic Acid (0.5-1.6) mmol/L Potassium 6.0 H (3.5-5.1) mmol/L Chloride (98-107) mmol/L Carbon Dioxide (22-30) mmol/L BUN 81 H (9-20) mg/dL Creatinine 4.02 H (0.66-1.25) mg/dL Glucose 108 H (74-99) mg/dL POC Glucose (mg/dL) (75-99) mg/dL Calcium 7.5 L (8.4-10.2) mg/dL Magnesium (1.6-2.3) mg/dL Total Bilirubin 1.7 H (0.2-1.3) mg/dL Delta Bilirubin (0.0-0.2) mg/dL AST 141 H (17-59) U/L ALT 65 H (4-49) U/L Alkaline Phosphatase 134 H (38-126) U/L Total Protein 6.2 L (6.3-8.2) g/dL Albumin 2.9 L (3.5-5.0) g/dL 04/04/20 04/04/20 Range/Units 08:20 09:30 WBC (3.8-10.6) k/uL RBC (4.30-5.90) m/uL Hgb (13.0-17.5) gm/dL Hct (39.0-53.0) % MCV (80.0-100.0) fL MCHC (31.0-37.0) g/dL RDW (11.5-15.5) % Neutrophils # (Manual) (1.3-7.7) k/uL Lymphocytes # (Manual) (1.0-4.8) k/uL Monocytes # (Manual) (0-1.0) k/uL Basophils # (Manual) (0-0.2) k/uL Nucleated RBCs (0-0) /100 WBC Macrocytosis PT (9.0-12.0) sec INR (<1.2) ABG pH (7.35-7.45) ABG pCO2 (35-45) mmHg ABG pO2 (83-108) mmHg ABG O2 Saturation (94-97) % ABG Lactic Acid 3.4 H* (0.5-1.6) mmol/L Potassium (3.5-5.1) mmol/L Chloride (98-107) mmol/L Carbon Dioxide (22-30) mmol/L BUN (9-20) mg/dL Creatinine (0.66-1.25) mg/dL Glucose (74-99) mg/dL POC Glucose (mg/dL) (75-99) mg/dL Calcium (8.4-10.2) mg/dL Magnesium (1.6-2.3) mg/dL Total Bilirubin 1.6 H (0.2-1.3) mg/dL Delta Bilirubin 0.7 H (0.0-0.2) mg/dL AST 141 H (17-59) U/L ALT 66 H (4-49) U/L Alkaline Phosphatase 136 H (38-126) U/L Total Protein 6.1 L (6.3-8.2) g/dL Albumin 2.9 L (3.5-5.0) g/dL Microbiology - Last 24 Hours (Table) 04/02/20 11:00 Blood Culture - Preliminary Blood No Growth after 48 hours 03/30/20 10:26 Blood Culture - Preliminary Blood No Growth after 120 hours 04/02/20 10:17 Urine Culture - Final Urine,Voided Assessment and Plan Plan: 1 Septic shock. The patient is came in to the ICU hypotensive and hypothermic and his septic shock. Currently was resuscitated. Still requiring pressors and the patient remains on a combination of high-dose norepinephrine infusion and vasopressin. On today's evaluation, the patient continues to be on high-dose pressors in addition to vasopressin and sisters hydrocortisone. Antibiotic coverage is essentially the same. Temperature has improved and the patient is normothermic at this point in time. Nevertheless, blood pressure continues to be unstable and low. 2 acute hypoxic/hypercapnic respiratory failure. Based on today's blood gas, there is improvement and acid base status. The patient is ventilating more effectively. Nevertheless, there is still a component of metabolic and respiratory acidosis. Currently her liters by nasal cannula. Repeat blood gases was noted. 3 Penile erosion secondary to catheter with suspected infection with secondary cellulitis, Wound cultures showed MRSA, Enterobacter cloacae in addition to anaerobes. 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 history of aortic valve replacement 12 history of hypertension 13 obstructive sleep apnea. 14 history of pacemaker insertion for symptomatically bradycardia 15 COPD currently on room air oxygen with a pulse ox of 94% 16. chronic anemia 17. hyperlipidemia 18. history of previous CVA with expressive aphasia 19 BPH 20 chronic anemia, multifactorial, 21 hypothermia, improved 22 acute leukocytosis Plan Keep the patient intensive care unit. Broad-spectrum antibiotic coverage and add IV Merrem in addition to daptomycin and Flagyl, noted the patient is also on Diflucan. The repeat blood cultures of been negative Continue pressors for hemodynamic support Continue stress dose hydrocortisone 100 mg every 8 hours of the patient's baseline serum cortisol level was low Hemodialysis with ultrafiltration today Continue articulation with Coumadin and monitor the PT/INR on a daily basis which is therapeutic at this point in time. The has been updated on the condition. Condition is critical at this point in time. This evaluation was done more than 30 minutes. Time with Patient: Greater than 30
[2020-04-04 16:08] LABS: ABG Base Excess -3.1 mmol/L; ABG HCO3 26 mmol/L (21-25); ABG Oxygen Saturation 96.5 % (94-97); ABG PO2 102 mmHg (83-108); ABG TCO2 28 mmol/L (19-24)
[2020-04-04 16:09] LABS: ABG PCO2 71 mmHg (35-45); ABG PH 7.16 (7.35-7.45); Allen Test Performed? no
[2020-04-04] MEDS ORDERED: WARFARIN 2 MG TAB PO ONE (18:00)
[2020-04-04 20:43] LABS: Glucose,Whole Blood 154 mg/dL (75-99)
--- NOTE | 2020-04-04 22:32 | PN ---
PROGRESS NOTE DATE OF SERVICE: 04/04/2020 REASON FOR FOLLOWUP: 1. MRSA bacteremia secondary to soft tissue source. 2. Possible pneumonia. INTERVAL HISTORY: Patient is currently afebrile. The patient is still requiring high dose pressor support to maintain his blood pressure. The patient denies having any chest pain, shortness of breath. Minimal cough. No abdominal pain or diarrhea. PHYSICAL EXAMINATION: Blood pressure is 111/47, pulse of 58, temperature 97.3. He is 99% on 2 L nasal cannula. General description is an elderly male lying in bed in no distress. Respiratory system: Unlabored breathing, decreased breath sounds in the base, with no wheeze. Heart S1, S2. Regular rate and rhythm. ABDOMEN: Soft, no tenderness. Legs are currently wrapped up. No obvious drainage on the dressing. LABS: Hemoglobin is 10.8, white count 22.7, BUN of 81, creatinine is 4.02. Blood culture has been negative. DIAGNOSTIC IMPRESSION AND PLAN: 1. Patient with MRSA bacteremia secondary to soft tissue source. Repeat blood culture negative. Covered with daptomycin. 2. Patient had an episode of hypertension for which the patient has been admitted to ICU. So far repeat culture has been negative. Patient is covered with meropenem and Diflucan to continue. Monitor clinical course closely. Continue supportive care. MMODL / IJN: [id number] /
[2020-04-04] MEDS: TAMSULOSIN 0.4 MG CAP.ER.24H PO SCH (22:43)
[2020-04-04] MEDS: DONEPEZIL 10 MG TAB PO SCH (22:44)
[2020-04-04] MEDS: SODIUM CHLORIDE 0.9% 1,000 ML IV SCH (22:46)
[2020-04-05] MEDS: HYDROCORTISONE SUCCINATE 100 MG/2 ML VIAL IV SCH ×3 (00:23→18:55)
[2020-04-05] MEDS: SODIUM CHLORIDE 0.9% 50 ML with VASOPRESSIN 20 UNIT IVPB SCH ×4 (00:58→20:44)
[2020-04-05] MEDS: NOREPINEPHRINE 32 MG in SODIUM CHLORIDE 0.9% 218 ML IV SCH ×2 (00:59→20:47)
[2020-04-05 04:46] LABS: Glucose,Whole Blood 176 mg/dL (75-99)
[2020-04-05 04:55] LABS: Anisocytosis Slight; HCT 33.7 % (39.0-53.0); Hypochromasia Marked; MCHC 29.7 g/dL (31.0-37.0); MCV 107.8 fL (80.0-100.0); Macrocytosis Marked; Platelet Count 172 k/uL (150-450); Poikilocytosis Moderate; RBC 3.12 m/uL (4.30-5.90); RDW 18.6 % (11.5-15.5)
[2020-04-05 05:08] LABS: INR 2.7 (<1.2); Prothrombin Time 26.4 sec (9.0-12.0)
[2020-04-05 05:14] LABS: Calcium 7.4 mg/dL (8.4-10.2); Potassium 5.4 mmol/L (3.5-5.1)
[2020-04-05] MEDS: FERROUS SULFATE 325 MG TAB PO SCH (06:57)
[2020-04-05] MEDS: CHOLECALCIFEROL 1,000 UNIT TAB PO SCH (06:57)
[2020-04-05] MEDS: MAGNESIUM OXIDE 400 MG TAB PO SCH (06:57)
[2020-04-05] MEDS: MIDODRINE 5 MG TAB PO SCH ×2 (06:57→18:55)
[2020-04-05] MEDS: METOPROLOL SUCCINATE (ER) 50 MG TAB.ER.24H PO SCH (06:58)
[2020-04-05] MEDS: PANTOPRAZOLE 40 MG TABLET PO SCH (07:02)
[2020-04-05] MEDS: SYMBICORT 160-4.5 MCG INHALER INHALATION SCH ×2 (08:16→19:31)
[2020-04-05] MEDS: ALBUTEROL HFA INHALER INHALATION PRN ×2 (08:16→11:39)
--- NOTE | 2020-04-05 09:29 | PN ---
PROGRESS NOTE Mr. Brady is a 74-year-old male who presented with evidence of infection. He has history of atrial fibrillation, permanent pacemaker implantation, aortic valve replacement, coronary artery bypass grafting who had episode of hypotension requiring pressors as well worsening renal function requiring dialysis. He was dialyzed yesterday. He is awake, following command. His blood pressure is better. He continues to be on norepinephrine and vasopressin, although a lower dose of norepinephrine. He is in atrial fibrillation with controlled ventricular response. He is scheduled to undergo repeat dialysis today. There is no evidence of ventricular tachyarrhythmia. MEDICATION: At this time include Lasix 80 mg IV q.12 hours, Solu-Cortef 100 mg q.8 hours, Namenda, metoprolol succinate 50 mg daily, midodrine, tamsulosin, and he is on Coumadin. PHYSICAL EXAMINATION: Blood pressure 113/50 with a heart rate in the 60s. LUNGS: A few crackles at the bases, no wheezes. HEART: Irregular, regular. S1-S2 with prosthetic aortic sound and a systolic murmur, no diastolic murmur, no rub. ABDOMEN: Soft, nontender. EXTREMITIES: Edema noted with evidence of excoriation noted on the abdomen and the lower extremities. LAB DATA: Revealed a hemoglobin of 10, white blood cell 24,000. BUN and creatinine are 71 and 3.65, potassium of 5.4. IMPRESSION: 1. Sepsis with septic shock. Continue to be on vasopressors. 2. Worsening renal function, undergoing dialysis. 3. Atrial fibrillation. 4. Status post coronary artery bypass grafting. 5. Status post aortic valve replacement. 6. Penile erosion with cellulitis. 7. Respiratory failure, improving. 8. History of stroke. RECOMMENDATION: From the cardiac standpoint, will continue present therapy. Will continue on anticoagulation with the Coumadin. His INR today is 2.7. Continue supportive care. MMODL / IJN: [id number] /
[2020-04-05 09:51] LABS: ABG PH 7.17 (7.35-7.45); Allen Test Performed? Yes
[2020-04-05 09:52] LABS: ABG HCO3 28 mmol/L (21-25); ABG PCO2 76 mmHg (35-45); ABG PO2 85 mmHg (83-108); ABG TCO2 30 mmol/L (19-24)
[2020-04-05 09:53] LABS: ABG Base Excess 0.6 mmol/L
--- NOTE | 2020-04-05 10:28 | P.PN ---
Subjective Progress Note Date: 04/04/20 Te Brady is a 74-year-old male patient who presented to the ER from rehab with complaints of increased O fungal rash in the groin eroding foreskin secondary to catheter. Patient also had acute kidney injury and elevated INR. Patient's past medical history of atrial fibrillation which she is maintained on Coumadin, heart failure, COPD, dementia, hypertension, myocardial infarction, osteoarthritis with sleep apnea in which he uses home CPAP machine, pacemaker, anxiety and heart valve replacement. Patient's creatinine upon admission 3.07 and bun 77 potassium also elevated at 56. INR greater than 10. UA positive for the same Estrace. Chest x-ray completed showing T over the left lower lung r egion correlate for atelectasis or pneumonia. At this time patient has been started on Rocephin and Levaquin for IV antibiotics. Urology services have been consulted. Nephrology service is consulted for acute kidney injury. Potassium lowering cocktail given per nephrology. Dr. zavala and has been consulted for pulmonary due to possible pneumonia. Wound and blood cultures ordered. at this time patient denies chest pain or shortness of breath. Patient denies nausea vomiting or diarrhea. On 03/19/2020 patient was seen and examined on the medical floor he is alert and oriented 3 in no apparent distress, he is complaining of diarrhea with stool incontinence, otherwise he denies any complaints there is no fever or chills no headache or dizziness, no chest pain no shortness of breath no cough no nausea or vomiting no abdominal pain no blood in the stools no burning with urination no frequency or urgency and no hematuria 03/20/2020 patient was seen and examined on the medical floor he is alert and oriented 3 in no apparent distress there is no fever or chills no headache or d izziness no chest pain no shortness of breath no cough no nausea or vomiting no abdominal pain no diarrhea no blood in the stools no burning with urination no frequency or urgency and no hematuria. Clinton catheter has been removed and patient is able to urinate. INR is still elevated patient will be getting vitamin K 2.5 mg by mouth 1 time today on 03/21/2020 patient is alert and oriented 3currently sitting up in chair. INR today 3.5. patient maintained on meropenem and vancomycin for IV an tibiotics. At that time Clinton catheter has been removed to patient voiding independently will follow-up outpatient with urology for possible cystoscopy. At this time patient denies chest pain or shortness of breath. Patient denies nausea vomiting or diarrhea. Patient denies any urinary burning or frequency On 03/22/2020 patient was seen and examined on the medical floor he is alert and oriented 3 in no distress, he had the midline placed today and antibiotic were resumed, white blood count is elevated at 13.5, there is no fever or chills no headache or dizziness no chest pain no shortness of breath no cough no nausea or vomiting no abdominal pain no diarrhea and no urinary symptoms. On 03/23/2020 patient was seen and examined on the medical floor he is alert and oriented 3 in no apparent distress there is no fever or chills no headache or dizziness no chest pain no shortness of breath no cough no nausea or vomiting no abdominal pain no diarrhea and no urinary symptoms white blood count remains elevated, patient was resumed on IV antibiotic via midline will continue to monitor during this weekend. On 03/24/2020 patient was seen and examined on the medical floor he is alert and oriented in no apparent distress he is sitting up in chair he denies any complaints at this time there is no fever or chills no headache or dizziness no chest pain no shortness of breath no palpitation no cough no nausea or vomiting no abdominal pain no diarrhea no blood in the stools no burning with urination no frequency or urgency and no hematuria. On 03/25/2020 patient was seen and examined on the medical floor he is alert and oriented in no distress he denies any symptoms at this time, he is sitting up in a chair eating his meal, there is no fever or chills no headache or dizziness no chest pain no shortness of breath no cough no nausea or vomiting no abdominal pain no diarrhea no blood in the stools no burning with urination no frequency or urgency and no hematuria. Infectious disease recommendation reviewed patient has a midline he will need to go to the half-way on IV antibiotic. on 03/26/2020 patient was seen and examined on the medical floor he is alert and oriented 3 in no distress he is complaining of generalized weakness otherwise no specific complaints there is no fever or chills no headache or dizziness no chest pain no shortness of breath no cough no nausea or vomiting no abdominal pain no diarrhea and no urinary symptoms, he remains on IV antibiotic white blood count is still elevated . Patient has a midline in the right arm, he will need to continue IV antibiotic at the half-way, he is urinating well without Clinton catheter. On 03/27/2020 patient was seen and examined on the medical floor he is alert and oriented 3 in no distress there is no fever or chills no headache or dizziness no chest pain no shortness of breath no cough no nausea or vomiting no abdominal pain no diarrhea no blood in the stools no burning with urination no frequency or urgency and no hematuria is still complaining of generalized weakness On 03/28/2020 patient is alert and oriented 3. Discussed case with Dr. Walt Aviles and continue daptomycin recommending keeping patient 24 more hours to watch kidney function. Likely discharge to [facility] tomorrow. Patient denies chest pain or shortness of breath. Patient denies nausea vomiting or diarrhea. Patient denies any urinary burning or frequency. Did discuss case also with nephrology services recommending lasix twice a day upon discharge On 03/29/2020 patient was seen and examined on the medical floor he is alert and oriented 3 in no apparent distress there is no fever or chills no headache or dizziness no chest pain no shortness of breath no cough no nausea or vomiting no abdominal pain no diarrhea no blood in the stools no burning with urination no frequency or urgency and no hematuria. Kidney function is slightly worse today. At this time patient is stable, awaiting clearance from infectious disease and nephrology, and the recommendation for discharge antibiotics On 03/30/2020 patient had low temp all-night. Rectal temps were obtained and patient was placed on bear hugger. Patient is alert and oriented. At this time critical care services have been consulted. Chest x-ray urine culture and blood cultures ordered. Did discuss case with infectious disease updated outpatient physician. Blood pressure and heart rate have remained stable. Lactic acid was checked in stable at 1.0. Kidney function slightly worse today. Continue to monitor patient very closely critical care infectious disease and nephrology services are following. On 03/31/2020 patient was seen and examined on the medical floor he is alert and oriented 3 in no distress, he is still having episodes of hypothermia, there is no fever or chills no headache or dizziness no chest pain no shortness of breath no cough no nausea or vomiting no abdominal pain no diarrhea and no urinary symptoms. Medication and labs were reviewed, input from multiple consultants reviewed in details. On 04/01/2020 patient is alert and oriented 3. Creatinine increasing. Patient also having low pressures. Recommendations per nephrology to transfer patient to ICU and start Levophed. 2-D echo cardiology consult placed also to rule out cardiorenal syndrome. Discussed case with critical care team and nurse practitioner, updated on nephrology recommendation on ICU transfer and initiation of Levophed. At this time patient denies chest pain. Patient denies shortness breath. Patient denies nausea vomiting or diarrhea. Patient denies any urinary burning or frequency. Critical care, nephrology, infectious disease already following. Cardiology consult placed. On 04/02/2020 patient was seen and examined he continued to have episodes of hypothermia and hypotension he was reevaluated by critical care Dr. Gomez today at this time patient will be transferred to intensive care unit. Clinically patient is alert and oriented he denies any chest pain he has occasional shortness of breath no headache or dizziness no nausea vomiting or abdominal pain and no urinary symptoms. On 04/03/2020 patient was seen and examined in the ICU he is alert responsive maintained on BiPAP, patient is maintained on IV fluid and IV vasopressors, he is also maintained on IV antibiotics daptomycin and Diflucan and meropenem and Flagyl his condition has stabilized since yesterday. On 04/04/2020 patient was seen and examined in the ICU he is alert responsive in no apparent distress he is currently maintained on oxygen via nasal cannula and is tolerating well he is in hemodialysis at this time there is no fever or chills no headache or dizziness no chest pain no shortness of breath no cough no nausea or vomiting no abdominal pain no diarrhea no blood in the stools no burning with urination no frequency or urgency and no hematuria Objective - Vital Signs Vital signs: Vital Signs Temp 98.1 F 04/04/20 07:30 Pulse 60 04/04/20 09:30 Resp 12 04/04/20 09:30 BP 92/45 04/04/20 09:30 Pulse Ox 99 04/04/20 09:30 Intake & Output 04/03/20 04/04/20 04/04/20 18:59 06:59 18:59 Intake Total 558.212 442.494 40 Output Total 50 5 0 Balance 508.212 -1582.506 40 Weight 179.9 kg Intake: IV 140 260 40 Sodium Chloride 0.9% 1, 140 260 40 000 ml @ 20 mls/hr IV . Q24H [facility] Rx#:[id number] Intake, IV Titration 168.212 182.494 Amount Meropenem 1 gm In Sodium 100 Chloride 0.9% 100 ml @ 33 .3 mls/hr IVPB Q12HR [facility] Rx#:[id number] Norepinephrine 32 mg In 67.898 182.102 Sodium Chloride 0.9% 218 ml @ 0.05 MCG/KG/MIN 2. 883 mls/hr IV .Q24H [facility] Rx#:[id number] Sodium Chloride 0.9% 50 0.314 0.392 ml @ Titrate IVPB .Q0M [facility] with Vasopressin 20 unit Rx#:[id number] Oral 250 Output: Urine 50 25 0 Hemodialysis 2000 Other: Voiding Method Indwelling Catheter Indwelling Catheter Indwelling Catheter ABP, PAP, CO, CI - Last Documented Arterial Blood Pressure 108/46 - Exam Head normocephalic and atraumatic Neck supple no JVD no goiter Lungs clear to auscultation bilaterally no wheezing or crackles Heart irregular rate. known atrial fibrillation Abdomen is soft nontender nondistended positive bowel sounds no hepatosplenomegaly Extremities no edema no cyanosis or clubbing Neuro alert and orientated to 2. Dementia Drainage noted to penile area around catheter. Erosion to groin area. - Labs CBC & Chem 7: 04/04/20 08:20 04/04/20 08:20 Labs: Abnormal Lab Results - Last 24 Hours (Table) 04/02/20 04/03/20 04/03/20 Range/Units 12:37 11:25 16:52 WBC (3.8-10.6) k/uL RBC (4.30-5.90) m/uL Hgb (13.0-17.5) gm/dL Hct (39.0-53.0) % MCV (80.0-100.0) fL MCHC (31.0-37.0) g/dL RDW (11.5-15.5) % Neutrophils # (Manual) (1.3-7.7) k/uL Lymphocytes # (Manual) (1.0-4.8) k/uL Monocytes # (Manual) (0-1.0) k/uL Nucleated RBCs (0-0) /100 WBC Macrocytosis PT (9.0-12.0) sec INR (<1.2) ABG pH 7.08 L* (7.35-7.45) ABG pCO2 (35-45) mmHg ABG pO2 (83-108) mmHg ABG O2 Saturation (94-97) % Potassium (3.5-5.1) mmol/L Chloride (98-107) mmol/L Carbon Dioxide (22-30) mmol/L BUN (9-20) mg/dL Creatinine (0.66-1.25) mg/dL Glucose (74-99) mg/dL POC Glucose (mg/dL) 142 H 109 H (75-99) mg/dL Calcium (8.4-10.2) mg/dL Magnesium (1.6-2.3) mg/dL Total Bilirubin (0.2-1.3) mg/dL AST (17-59) U/L ALT (4-49) U/L Alkaline Phosphatase (38-126) U/L Total Protein (6.3-8.2) g/dL Albumin (3.5-5.0) g/dL 04/03/20 04/03/20 04/04/20 Range/Units 19:18 23:39 05:30 WBC 21.9 H (3.8-10.6) k/uL RBC 3.17 L (4.30-5.90) m/uL Hgb 10.0 L (13.0-17.5) gm/dL Hct 34.2 L (39.0-53.0) % MCV 108.1 H (80.0-100.0) fL MCHC 29.3 L (31.0-37.0) g/dL RDW 18.5 H (11.5-15.5) % Neutrophils # (Manual) 19.49 H (1.3-7.7) k/uL Lymphocytes # (Manual) 0.88 L (1.0-4.8) k/uL Monocytes # (Manual) 1.53 H (0-1.0) k/uL Nucleated RBCs 18 H (0-0) /100 WBC Macrocytosis Marked A PT (9.0-12.0) sec INR (<1.2) ABG pH 7.11 L* (7.35-7.45) ABG pCO2 69 H (35-45) mmHg ABG pO2 109 H (83-108) mmHg ABG O2 Saturation 98.0 H (94-97) % Potassium (3.5-5.1) mmol/L Chloride (98-107) mmol/L Carbon Dioxide (22-30) mmol/L BUN 69 H (9-20) mg/dL Creatinine 3.68 H (0.66-1.25) mg/dL Glucose 113 H (74-99) mg/dL POC Glucose (mg/dL) (75-99) mg/dL Calcium 7.9 L (8.4-10.2) mg/dL Magnesium 2.7 H (1.6-2.3) mg/dL Total Bilirubin (0.2-1.3) mg/dL AST (17-59) U/L ALT (4-49) U/L Alkaline Phosphatase (38-126) U/L Total Protein (6.3-8.2) g/dL Albumin (3.5-5.0) g/dL 04/04/20 04/04/20 04/04/20 Range/Units 05:30 05:30 08:20 WBC 25.0 H (3.8-10.6) k/uL RBC 3.12 L (4.30-5.90) m/uL Hgb 10.3 L (13.0-17.5) gm/dL Hct 34.3 L (39.0-53.0) % MCV 109.9 H (80.0-100.0) fL MCHC 29.9 L (31.0-37.0) g/dL RDW 18.5 H (11.5-15.5) % Neutrophils # (Manual) (1.3-7.7) k/uL Lymphocytes # (Manual) (1.0-4.8) k/uL Monocytes # (Manual) (0-1.0) k/uL Nucleated RBCs (0-0) /100 WBC Macrocytosis Marked A PT 24.5 H (9.0-12.0) sec INR 2.5 H (<1.2) ABG pH (7.35-7.45) ABG pCO2 (35-45) mmHg ABG pO2 (83-108) mmHg ABG O2 Saturation (94-97) % Potassium 3.3 L (3.5-5.1) mmol/L Chloride 124 H (98-107) mmol/L Carbon Dioxide 14 L (22-30) mmol/L BUN 49 H (9-20) mg/dL Creatinine 2.33 H (0.66-1.25) mg/dL Glucose 64 L (74-99) mg/dL POC Glucose (mg/dL) (75-99) mg/dL Calcium 4.1 L* (8.4-10.2) mg/dL Magnesium (1.6-2.3) mg/dL Total Bilirubin (0.2-1.3) mg/dL AST 72 H (17-59) U/L ALT (4-49) U/L Alkaline Phosphatase (38-126) U/L Total Protein 3.5 L (6.3-8.2) g/dL Albumin 1.4 L (3.5-5.0) g/dL 04/04/20 Range/Units 08:20 WBC (3.8-10.6) k/uL RBC (4.30-5.90) m/uL Hgb (13.0-17.5) gm/dL Hct (39.0-53.0) % MCV (80.0-100.0) fL MCHC (31.0-37.0) g/dL RDW (11.5-15.5) % Neutrophils # (Manual) (1.3-7.7) k/uL Lymphocytes # (Manual) (1.0-4.8) k/uL Monocytes # (Manual) (0-1.0) k/uL Nucleated RBCs (0-0) /100 WBC Macrocytosis PT (9.0-12.0) sec INR (<1.2) ABG pH (7.35-7.45) ABG pCO2 (35-45) mmHg ABG pO2 (83-108) mmHg ABG O2 Saturation (94-97) % Potassium 6.0 H (3.5-5.1) mmol/L Chloride (98-107) mmol/L Carbon Dioxide (22-30) mmol/L BUN 81 H (9-20) mg/dL Creatinine 4.02 H (0.66-1.25) mg/dL Glucose 108 H (74-99) mg/dL POC Glucose (mg/dL) (75-99) mg/dL Calcium 7.5 L (8.4-10.2) mg/dL Magnesium (1.6-2.3) mg/dL Total Bilirubin 1.7 H (0.2-1.3) mg/dL AST 141 H (17-59) U/L ALT 65 H (4-49) U/L Alkaline Phosphatase 134 H (38-126) U/L Total Protein 6.2 L (6.3-8.2) g/dL Albumin 2.9 L (3.5-5.0) g/dL Microbiology - Last 24 Hours (Table) 04/02/20 11:00 Blood Culture - Preliminary Blood No Growth after 24 hours 03/30/20 10:26 Blood Culture - Preliminary Blood No Growth after 96 hours 04/02/20 10:17 Urine Culture - Final Urine,Voided Assessment and Plan Assessment: 1. Infection around catheter site with penile erosion. wound culture showing MRSA Enterobacter cloacae. 2. MRSA bacteremia repeat blood cultures ordered, 3. Gram-negative urinary tract infection related to ESBL Proteus mirabilis. 4. Acute kidney injury with elevated potassium. Creatinine elevated at 3.06 upon admission. Continue normal saline at 50. Nephrology services are following 5. Supratherapeutic INR. Hold Coumadin and recheck. patient did receive vitamin K. Current INR 3.5 6. Possible pneumonia. Patient started on Levaquin and Rocephin. Pulmonary service is consulted 7. History of insulin-dependent diabetes mellitus 8. History of essential hypertension 9. History of hyperlipidemia. Maintained on statin 10. History of stroke with suppressive aphasia 11. History of morbid obesity 12. History of urinary retention and difficulty with Clinton insertion. per urology servicesFoley catheter has been removed patient advised follow-up in one month with urology services for cystoscopy 13. Dementia. Maintained on Aricept and Namenda 14. Diarrhea will check stools for C. diff. 15. Nurse reporting that patient is making statements about being depressed, his is also concerned in that regard, at this time will restart patient on Wellbutrin SR 150 mg by mouth once daily 16. Sepsis with hypothermia and hypotension , currently he is in ICU maintained on BiPAP, IV fluids and IV antibiotics he is improving gradually DVT prophylaxis SCDs due to subtherapeutic INR. GI prophylaxis Protonix Infectious disease, nephrology and critical care service is consulted patient remains on daptomycin and Flagyl repeat blood cultures and urine and chest x-ray ordered continue Shahnaz cano for low temp Nephrology services recommend transfer to intensive care unit and initiation of Levophed for blood pressure support, this was discussed with the critical care team. Per critical care team will evaluate patient. 2-D echo and cardiology consult placed
[2020-04-05] MEDS: MEMANTINE 5 MG TAB PO SCH ×2 (10:42→20:35)
[2020-04-05] MEDS: FLUCONAZOLE 100 MG TAB PO SCH (10:42)
[2020-04-05] MEDS: FUROSEMIDE 10 MG/ML 10 ML VIAL IV SCH ×2 (10:42→20:36)
[2020-04-05] MEDS: buPROPion SR 150 MG TABLET.ER PO SCH (10:43)
[2020-04-05] MEDS: MEROPENEM 1 GM in SODIUM CHLORIDE 0.9% 100 ML IVPB SCH ×2 (10:43→20:35)
--- NOTE | 2020-04-05 10:53 | ECHOF ---
Referral Reason:assess lv function MEASUREMENTS -------- HEIGHT: 185.4 cm WEIGHT: 173.7 kg BP: 119/56 RAP: 5.00 mmHg RVSP: 34.32 mmHg FINDINGS -------- Limited Study Overall left ventricular systolic function is normal with, an EF between 60 - 65 %. There is no pericardial effusion. CONCLUSIONS -------- 1. Overall left ventricular systolic function is normal with, an EF between 60 - 65 %. 2. There is no pericardial effusion. PHARMACOLOGY ASSOCIATE: Luly Devlin RDCS
[2020-04-05 11:58] LABS: Glucose,Whole Blood 191 mg/dL (75-99)
--- NOTE | 2020-04-05 12:40 | P.PN ---
Subjective Patient is seen in follow-up for acute kidney injury. Patient's renal function did improve initially upon admission but worsened again. Creatinine up to 4.5 on April 02 - started on hemodialysis for severe volume overload and low urine output. Currently on 80 mics of Levophed as well as vasopressin. He is awake. Currently on 4 L high flow nasal cannula. Tolerated 2.2 L ultrafiltration yesterday. Remains severely volume overloaded. Vital signs: Currently on Levophed and vasopressin. Heart rate stable. General: The patient appeared well nourished and normally developed. HEENT: Head exam is unremarkable. LUNGS: Breath sounds decreased. HEART: Rate and Rhythm are regular. ABDOMEN: Soft, nontender. Obese. EXTREMITITES: 3+ edema. Objective - Vital Signs Vital signs: Vital Signs Temp 98.7 F 04/05/20 12:00 Pulse 59 L 04/05/20 12:00 Resp 17 04/05/20 12:00 BP 92/45 04/05/20 12:00 Pulse Ox 96 04/05/20 12:00 Intake & Output 04/04/20 04/05/20 04/05/20 18:59 06:59 18:59 Intake Total 490 940.612 420 Output Total 2200 20 20 Balance -1710 920.612 400 Weight 173.9 kg Intake: IV 240 340 120 Meropenem 1 gm In Sodium 100 Chloride 0.9% 100 ml @ 33 .3 mls/hr IVPB Q12HR PAU Rx#:[id number] Sodium Chloride 0.9% 1, 240 240 120 000 ml @ 20 mls/hr IV . Q24H PAU Rx#:[id number] Intake, IV Titration 250 0.612 Amount Norepinephrine 32 mg In 250 Sodium Chloride 0.9% 218 ml @ 0.05 MCG/KG/MIN 2. 883 mls/hr IV .Q24H PAU Rx#:[id number] Sodium Chloride 0.9% 50 0.612 ml @ Titrate IVPB .Q0M PAU with Vasopressin 20 unit Rx#:[id number] Oral 600 300 Output: Urine 0 20 20 Hemodialysis 2200 Other: Voiding Method Indwelling Catheter Indwelling Catheter Indwelling Catheter ABP, PAP, CO, CI - Last Documented Arterial Blood Pressure 125/55 - Labs CBC & Chem 7: 04/05/20 04:40 04/05/20 04:40 Labs: Abnormal Lab Results - Last 24 Hours (Table) 04/04/20 04/04/20 04/04/20 Range/Units 16:05 20:40 20:42 WBC (3.8-10.6) k/uL RBC (4.30-5.90) m/uL Hgb (13.0-17.5) gm/dL Hct (39.0-53.0) % MCV (80.0-100.0) fL MCHC (31.0-37.0) g/dL RDW (11.5-15.5) % Macrocytosis PT (9.0-12.0) sec INR (<1.2) ABG pH 7.16 L* (7.35-7.45) ABG pCO2 71 H* (35-45) mmHg ABG HCO3 26 H (21-25) mmol/L ABG Total CO2 28 H (19-24) mmol/L Sodium (137-145) mmol/L Potassium 5.3 H (3.5-5.1) mmol/L BUN (9-20) mg/dL Creatinine (0.66-1.25) mg/dL Glucose (74-99) mg/dL POC Glucose (mg/dL) 154 H (75-99) mg/dL Calcium (8.4-10.2) mg/dL 04/05/20 04/05/20 04/05/20 Range/Units 04:40 04:40 04:40 WBC 24.0 H (3.8-10.6) k/uL RBC 3.12 L (4.30-5.90) m/uL Hgb 10.0 L (13.0-17.5) gm/dL Hct 33.7 L (39.0-53.0) % MCV 107.8 H (80.0-100.0) fL MCHC 29.7 L (31.0-37.0) g/dL RDW 18.6 H (11.5-15.5) % Macrocytosis Marked A PT 26.4 H (9.0-12.0) sec INR 2.7 H (<1.2) ABG pH (7.35-7.45) ABG pCO2 (35-45) mmHg ABG HCO3 (21-25) mmol/L ABG Total CO2 (19-24) mmol/L Sodium 136 L (137-145) mmol/L Potassium 5.4 H (3.5-5.1) mmol/L BUN 71 H (9-20) mg/dL Creatinine 3.65 H (0.66-1.25) mg/dL Glucose 180 H (74-99) mg/dL POC Glucose (mg/dL) (75-99) mg/dL Calcium 7.4 L (8.4-10.2) mg/dL 04/05/20 04/05/20 04/05/20 Range/Units 04:44 09:26 11:57 WBC (3.8-10.6) k/uL RBC (4.30-5.90) m/uL Hgb (13.0-17.5) gm/dL Hct (39.0-53.0) % MCV (80.0-100.0) fL MCHC (31.0-37.0) g/dL RDW (11.5-15.5) % Macrocytosis PT (9.0-12.0) sec INR (<1.2) ABG pH 7.17 L* (7.35-7.45) ABG pCO2 76 H* (35-45) mmHg ABG HCO3 28 H (21-25) mmol/L ABG Total CO2 30 H (19-24) mmol/L Sodium (137-145) mmol/L Potassium (3.5-5.1) mmol/L BUN (9-20) mg/dL Creatinine (0.66-1.25) mg/dL Glucose (74-99) mg/dL POC Glucose (mg/dL) 176 H 191 H (75-99) mg/dL Calcium (8.4-10.2) mg/dL Microbiology - Last 24 Hours (Table) 04/02/20 11:00 Blood Culture - Preliminary Blood No Growth after 48 hours 03/30/20 10:26 Blood Culture - Preliminary Blood No Growth after 120 hours Assessment and Plan Plan: Assessment: 1. Acute kidney injury secondary to ATN secondary to septic shock. Started on hemodialysis April 02 via R IJ catheter for severe volume overload and low urine output. Urine output 0-10 mL an hour. No evidence of urinary retention. No clear hydronephrosis noted on kidney ultrasound. 2. Hyperkalemia secondary to acute kidney injury. Improved postdialysis. 3. Septic shock maintained on Levophed, vasopressin. Low dose cosyntropin stimulation test was done earlier this admission and a cortisol level did rise post stimulation; however he was started on Cortef due to persistent hypotension. Now on stress dose steroids. 4. Volume overload. 5. Acute hypercapnic respiratory failure. 6. Penile erosion. Urology following. Plan: Maintain Lasix 80 mg IV twice daily. Currently seen while undergoing SLED. - continue with daily SLED. Wean vasopressors and FiO2. Continue to monitor renal function and urine output.
--- NOTE | 2020-04-05 14:35 | P.PN ---
Subjective Progress Note Date: 04/05/20 Sepsis secondary to penile erosion with secondary cellulitis On 04/02/2020, the patient got transferred to the intensive care unit. Earlier this morning, the patient was found to be hypothermic, hypotensive and the patient also having diminished level of consciousness. I saw the patient and I noted that the patient is also developed an acute kidney injury in the creatinine has been on a gradual rise over the past few days is currently up to 4.52. An immediate blood gases was done and the patient was found to have severe asked her acidosis. PH was at 7. 06 with a pCO2 of 77 acute of 161. At that point, the patient was placed on a BiPAP and BiPAP pressures were at 14/6 cm of water and FiO2 is being titrated to maintain a saturation above 90%. Subsequent blood gases showed some limited improvement with a pH of 7.09 and a pCO2 of 72 and pO2 of 99. The patient has significant diminished level of consciousness. He looks quite lethargic and obtunded. I contacted the . We radiatio for the need for intubation mechanical ventilation. The wanted to come to the hospital discussed this matter further. As such the patient is currently on a BiPAP for respiratory support. The patient was given a liter of IV fluids on the floor with normal saline and currently the patient is receiving IV fluids at the rate of 75 mL an hour. The patient was also started on norepinephrine infusion for blood pressure support. Antibiotic modification was done and the patient was started on IV Merrem in combination to Flagyl and daptomycin. His cardiac rhythm is sinus and the patient is having frequent PACs. INR therapeutic for now as the patient is on long-term articulation with warfarin. Note that the patient had a penile ulcer/infection with secondary cellulitis. The cultures were obtained earlier showed MRSA and Enterobacter and MRSA was also cultured and the blood on 03/17/2020. In addition to that the patient positive cultures for Proteus mirabilis in the urine from 03/17/2020. Anaerobes are also cultured from the penile wound. Most recent temperature is 94.4. Nephrology is on the case regarding acute kidney injury and the patient is oliguric and the patient is being considered for hemodialysis at this point in time. He is morbidly obese and he carries a BMI 53. On 04/03/2020 the patient is being seen for a follow-up. The patient is improved considerably compared to yesterday. Note that the patient came in to the ICU with septic shock. The patient was altered mentally and the patient was also having severe hypotension and he was hypothermic. Overnight, the patient was suspected IV fluids. The patient was also given pressors and the patient was on high-dose norepinephrine infusion running at 60 mg per minute and vasopressin at 0.03 units an hour. The patient was also supported with BiPAP throughout the night. He underwent dialysis also. This morning, there is marked improvement in the patient's overall mentation. His much more awake and alert. Repeat blood gases was done on the patient was on 10 L of oxygen by nasal cannula and the patient had a pH of 7.12 with a pCO2 55 and pO2 1:30. Note that during hemodialysis, the patient had a 1 L of ultrafiltration also. He is on a broad-spectrum antibiotics. Currently on a combination of meropenem, daptomycin, Flagyl and Diflucan. Hemodialysis to follow today. He is much more awake and alert. He is tolerating diet. The white cell count is up to 21.8 with a hemoglobin of 10.1. Based on the electrolytes, the patient's potassium level of 5.7. BUN is 85 with a creatinine of 3.97. The UA was abnormal and urine culture and blood cultures still pending for now. Furthermore during the day, the patient has been weaned down to 4 L of oxygen by nasal cannula. His current pulse ox 97%. His chest x-ray is showing mild bibasilar pulmonary infiltrates which is improved compared to yesterday and the patient has some mild cardiomegaly. On 04/04/2020, the patient again doing poorly. He remains in septic shock requiring high doses of pressors. The patient is also more lethargic and somnolent compared to yesterday. He is currently in 40s of oxygen by nasal cannula with pulse ox of 99%. He is profoundly hypotensive and the patient is still requiring high dose of Levothroid which is running at 90 g per minute and the patient is also on vasopressin at 0.04 units an hour and the patient on normal saline at 20 an hour. The patient remains on stress dose hydrocortisone. Antibiotic coverage essentially the same and the patient remains on a combination of daptomycin, meropenem, Flagyl and Diflucan. Repeat cultures of been all negative. Temperature has improved and the patient is not as hypothermic as he was yesterday. On his blood work, the patient continues to have a component of respiratory acidosis. The blood gas showed pH of 7.11 with a pCO2 of 69 and pO2 of 109. Not much different compared to yesterday's ABGs. He is not requiring BiPAP however. His BUN is at 81 with a creatinine of 4.02. His serum potassium is at 6. His serum bicarbonate 23. LFTs are slightly elevated with an AST of 141, ALT of 66, and alkaline phosphatase of 136. The patient is to undergo another session of hemodialysis today. This will be a slow low efficiency dialysis as the patient is quite hemodynamically stable. On 04/05/2020, the patient is being seen for a follow-up. He is awake. Unfortunately, the patient remains hemodynamically unstable requiring high doses of pressors. The patient is currently on a combination of vasopressin 0.04 units an hour and the patient also on norepinephrine infusion 75 g per minute. IV fluids are at KVO. The patient is to undergo another session of dialysis and the patient is showing improvement in the volume status and third spacing by daily hemodialysis. In terms of his respiratory status, the patient is on 4 L of oxygen by nasal cannula with a pulse ox of 96%. he is not hypothermic. He is not febrile. He does not have any significant altered mentation. He is awake and alert and following commands and answering questions appropriately. No nausea. No vomiting. No diarrhea. He is on broad-spectrum antibiotics and there is no clear source of infection at this point in time specially in the repeat cultures came back negative. I repeated a limited echocardiogram in the patient's LV function was again within normal limits. As such, the exact cause for his hypotension is not clear to me at this point in time although I strongly suspected is a septic shock. The broad-spectrum antibiotics including comb[place] of daptomycin, meropenem, Flagyl and Diflucan. Repeat cultures will be obtained. Meanwhile, the patient would undergo another session of hemodialysis. He has a left IJ temporary dialysis catheter in the right IJ triple-lumen catheter and exit sites are essentially clean and intact. The blood gases showing a component of respiratory acidosis and the patient's speech is at 7.17 with a pCO2 of 76 and pO2 of 85 and this was on FiO2 of 3 6% which is 40s about 2 by nasal cannula. White cell count is at 24. Hemoglobin is at 10.0. Urine output is quite diminished in the order of 5-10 mL an hour. Objective - Vital Signs Vital signs: Vital Signs Temp 97.0 F L 04/05/20 12:54 Pulse 60 04/05/20 12:54 Resp 16 04/05/20 12:54 BP 126/62 04/05/20 12:54 Pulse Ox 96 04/05/20 12:00 Intake & Output 04/04/20 04/05/20 04/05/20 18:59 06:59 18:59 Intake Total 490 940.612 420 Output Total 2200 20 3320 Balance -1710 920.612 -2900 Weight 173.9 kg Intake: IV 240 340 120 Meropenem 1 gm In Sodium 100 Chloride 0.9% 100 ml @ 33 .3 mls/hr IVPB Q12HR PAU Rx#:[id number] Sodium Chloride 0.9% 1, 240 240 120 000 ml @ 20 mls/hr IV . Q24H PAU Rx#:[id number] Intake, IV Titration 250 0.612 Amount Norepinephrine 32 mg In 250 Sodium Chloride 0.9% 218 ml @ 0.05 MCG/KG/MIN 2. 883 mls/hr IV .Q24H PAU Rx#:[id number] Sodium Chloride 0.9% 50 0.612 ml @ Titrate IVPB .Q0M PAU with Vasopressin 20 unit Rx#:[id number] Oral 600 300 Output: Urine 0 20 20 Hemodialysis 2200 3300 Other: Voiding Method Indwelling Catheter Indwelling Catheter Indwelling Catheter ABP, PAP, CO, CI - Last Documented Arterial Blood Pressure 125/55 - Exam GENERAL EXAM: the patient is awake and alert and much less somnolent 74-year-old white male, awake and alert and comfortable on 4 L of oxygen by nasal cannula. HEAD: Normocephalic/atraumatic. EYES: Normal reaction of pupils, equal size. Conjunctiva pink, sclera white. NOSE: Clear with pink turbinates. THROAT: No erythema or exudates. NECK: No masses, no JVD, no thyroid enlargement, no adenopathy. CHEST: No chest wall deformity. Symmetrical expansion. LUNGS: Equal air entry with bibasilar crackles. The patient is currently on BiPAP for respiratory support. CVS: Regular rate and rhythm, normal S1 and S2, no gallops, no murmurs, no rubs ABDOMEN: Soft, nontender. No hepatosplenomegaly, normal bowel sounds, no guarding or rigidity. The patient has a large anterior abdominal wound from previous abdominal surgeries. EXTREMITIES: No clubbing, there is edema bilaterally and the patient has chronic wounds and ulcerations in addition to that there is diminished pulses in all 4 extremities. The penile also seems to be improving and there is no purulent drainage at this point in time and the patient has no scrotal cellulitis. There is evidence of scrotal edema. Note that there is improvement in the swelling in lower extremities bilaterally. The lower extremity is wrapped at this point in time. Distal scrotal edema. No purulent discharge from the penile ulcer. MUSCULOSKELETAL: Muscle tone is markedly diminished in all 4 extremities. SPINE: No scoliosis or deformity SKIN: Bilateral abdominal ulcerations, and maceration with excoriation, left medial calcaneal ulceration CENTRAL NERVOUS SYSTEM:. The patient is awake and alert and following commands. patient is moving all 4 extremities without any limitation. He has diminished strength in all 4 extremities and there is global weakness. - Labs CBC & Chem 7: 04/05/20 04:40 04/05/20 04:40 Labs: Abnormal Lab Results - Last 24 Hours (Table) 04/04/20 04/04/20 04/04/20 Range/Units 16:05 20:40 20:42 WBC (3.8-10.6) k/uL RBC (4.30-5.90) m/uL Hgb (13.0-17.5) gm/dL Hct (39.0-53.0) % MCV (80.0-100.0) fL MCHC (31.0-37.0) g/dL RDW (11.5-15.5) % Macrocytosis PT (9.0-12.0) sec INR (<1.2) ABG pH 7.16 L* (7.35-7.45) ABG pCO2 71 H* (35-45) mmHg ABG HCO3 26 H (21-25) mmol/L ABG Total CO2 28 H (19-24) mmol/L Sodium (137-145) mmol/L Potassium 5.3 H (3.5-5.1) mmol/L BUN (9-20) mg/dL Creatinine (0.66-1.25) mg/dL Glucose (74-99) mg/dL POC Glucose (mg/dL) 154 H (75-99) mg/dL Calcium (8.4-10.2) mg/dL 04/05/20 04/05/20 04/05/20 Range/Units 04:40 04:40 04:40 WBC 24.0 H (3.8-10.6) k/uL RBC 3.12 L (4.30-5.90) m/uL Hgb 10.0 L (13.0-17.5) gm/dL Hct 33.7 L (39.0-53.0) % MCV 107.8 H (80.0-100.0) fL MCHC 29.7 L (31.0-37.0) g/dL RDW 18.6 H (11.5-15.5) % Macrocytosis Marked A PT 26.4 H (9.0-12.0) sec INR 2.7 H (<1.2) ABG pH (7.35-7.45) ABG pCO2 (35-45) mmHg ABG HCO3 (21-25) mmol/L ABG Total CO2 (19-24) mmol/L Sodium 136 L (137-145) mmol/L Potassium 5.4 H (3.5-5.1) mmol/L BUN 71 H (9-20) mg/dL Creatinine 3.65 H (0.66-1.25) mg/dL Glucose 180 H (74-99) mg/dL POC Glucose (mg/dL) (75-99) mg/dL Calcium 7.4 L (8.4-10.2) mg/dL 04/05/20 04/05/20 04/05/20 Range/Units 04:44 09:26 11:57 WBC (3.8-10.6) k/uL RBC (4.30-5.90) m/uL Hgb (13.0-17.5) gm/dL Hct (39.0-53.0) % MCV (80.0-100.0) fL MCHC (31.0-37.0) g/dL RDW (11.5-15.5) % Macrocytosis PT (9.0-12.0) sec INR (<1.2) ABG pH 7.17 L* (7.35-7.45) ABG pCO2 76 H* (35-45) mmHg ABG HCO3 28 H (21-25) mmol/L ABG Total CO2 30 H (19-24) mmol/L Sodium (137-145) mmol/L Potassium (3.5-5.1) mmol/L BUN (9-20) mg/dL Creatinine (0.66-1.25) mg/dL Glucose (74-99) mg/dL POC Glucose (mg/dL) 176 H 191 H (75-99) mg/dL Calcium (8.4-10.2) mg/dL Microbiology - Last 24 Hours (Table) 04/02/20 11:00 Blood Culture - Preliminary Blood No Growth after 72 hours 03/30/20 10:26 Blood Culture - Final Blood No Growth after 144 hours Assessment and Plan Plan: 1 Septic shock. The patient is came in to the ICU hypotensive and hypothermic and his septic shock. Despite being on adequate antibiotic coverage, the patient continues to be requiring high doses of pressors and the patient is on high-dose norepinephrine infusion and vasopressin physiologic dose. The patient is also on stress dose hydrocortisone. A limited echocardiac Star was rep eated and the patient was found to have a reserved LV function. No evidence of any pericardial effusion. 2 acute hypoxic/hypercapnic respiratory failure. Based on today's blood gas, there is improvement and acid base status. The patient is ventilating more effectively. Nevertheless, there is still a component of metabolic and respiratory acidosis. Currently the patient is l is on 4 L iters by nasal cannula. Repeat blood gases was noted from today. 3 Penile erosion secondary to catheter with suspected infection with secondary cellulitis, Wound cultures showed MRSA, Enterobacter cloacae in addition to anaerobes. The patient also staphylococcal septicemia 4 staph septicemia with MRSA 5 UTI secondary to ESBL Proteus mirabilis 6 acute kidney injury with secondary hypotension and sepsis and the patient has developed worsening in renal function with oligoria, currently the patient is undergoing hemodialysis ultrafiltration on a daily basis with improvement in the third spacing in the volume status. 7 nonhealing wounds under the abdominal folds, and left calcaneal area 8 obstructive uropathy with a indwelling [place] catheter in place 9 advanced dementia with impairment in cognitive functions 10 chronic atrial fibrillation with a supratherapeutic PT/INR while on Coumadin 11. history of aortic valve replacement 12 history of hypertension 13 obstructive sleep apnea. 14 history of pacemaker insertion for symptomatically bradycardia 15 COPD currently on room air oxygen with a pulse ox of 94% 16. chronic anemia 17. hyperlipidemia 18. history of previous CVA with expressive aphasia 19 BPH 20 chronic anemia, multifactorial, 21 hypothermia, improved 22 acute leukocytosis, white cell count remains elevated Plan Keep the patient intensive care unit. Broad-spectrum antibiotic coverage and add IV Merrem in addition to daptomycin and Flagyl, noted the patient is also on Diflucan. The repeat blood cultures of been negative. I'm going to send another 2 sets of blood cultures on today's evaluation. A limited echocardiogram was done and the patient has a reserved LV function without pericardial effusion. Continue pressors for hemodynamic support, and hoping to wean off the norepinephrine infusion gradually Continue stress dose hydrocortisone 100 mg every 8 hours of the patient's baseline serum cortisol level was low Hemodialysis with ultrafiltration today Continue articulation with Coumadin and monitor the PT/INR on a daily basis which is therapeutic at this point in time. The has been updated on the condition. Condition is critical at this point in time. This evaluation was done more than 30 minutes. Time with Patient: Greater than 30
[2020-04-05 16:43] LABS: Glucose,Whole Blood 170 mg/dL (75-99)
[2020-04-05] MEDS ORDERED: WARFARIN 2 MG TAB PO ONE (18:00)
--- NOTE | 2020-04-05 18:15 | P.PN ---
Subjective Progress Note Date: 04/05/20 Te Brady is a 74-year-old male patient who presented to the ER from rehab with complaints of increased O fungal rash in the groin eroding foreskin secondary to catheter. Patient also had acute kidney injury and elevated INR. Patient's past medical history of atrial fibrillation which she is maintained on Coumadin, heart failure, COPD, dementia, hypertension, myocardial infarction, osteoarthritis with sleep apnea in which he uses home CPAP machine, pacemaker, anxiety and heart valve replacement. Patient's creatinine upon admission 3.07 and bun 77 potassium also elevated at 56. INR greater than 10. UA positive for the same Estrace. Chest x-ray completed showing T over the left lower lung r egion correlate for atelectasis or pneumonia. At this time patient has been started on Rocephin and Levaquin for IV antibiotics. Urology services have been consulted. Nephrology service is consulted for acute kidney injury. Potassium lowering cocktail given per nephrology. Dr. zavala and has been consulted for pulmonary due to possible pneumonia. Wound and blood cultures ordered. at this time patient denies chest pain or shortness of breath. Patient denies nausea vomiting or diarrhea. On 03/19/2020 patient was seen and examined on the medical floor he is alert and oriented 3 in no apparent distress, he is complaining of diarrhea with stool incontinence, otherwise he denies any complaints there is no fever or chills no headache or dizziness, no chest pain no shortness of breath no cough no nausea or vomiting no abdominal pain no blood in the stools no burning with urination no frequency or urgency and no hematuria 03/20/2020 patient was seen and examined on the medical floor he is alert and oriented 3 in no apparent distress there is no fever or chills no headache or d izziness no chest pain no shortness of breath no cough no nausea or vomiting no abdominal pain no diarrhea no blood in the stools no burning with urination no frequency or urgency and no hematuria. Clinton catheter has been removed and patient is able to urinate. INR is still elevated patient will be getting vitamin K 2.5 mg by mouth 1 time today on 03/21/2020 patient is alert and oriented 3currently sitting up in chair. INR today 3.5. patient maintained on meropenem and vancomycin for IV an tibiotics. At that time Clinton catheter has been removed to patient voiding independently will follow-up outpatient with urology for possible cystoscopy. At this time patient denies chest pain or shortness of breath. Patient denies nausea vomiting or diarrhea. Patient denies any urinary burning or frequency On 03/22/2020 patient was seen and examined on the medical floor he is alert and oriented 3 in no distress, he had the midline placed today and antibiotic were resumed, white blood count is elevated at 13.5, there is no fever or chills no headache or dizziness no chest pain no shortness of breath no cough no nausea or vomiting no abdominal pain no diarrhea and no urinary symptoms. On 03/23/2020 patient was seen and examined on the medical floor he is alert and oriented 3 in no apparent distress there is no fever or chills no headache or dizziness no chest pain no shortness of breath no cough no nausea or vomiting no abdominal pain no diarrhea and no urinary symptoms white blood count remains elevated, patient was resumed on IV antibiotic via midline will continue to monitor during this weekend. On 03/24/2020 patient was seen and examined on the medical floor he is alert and oriented in no apparent distress he is sitting up in chair he denies any complaints at this time there is no fever or chills no headache or dizziness no chest pain no shortness of breath no palpitation no cough no nausea or vomiting no abdominal pain no diarrhea no blood in the stools no burning with urination no frequency or urgency and no hematuria. On 03/25/2020 patient was seen and examined on the medical floor he is alert and oriented in no distress he denies any symptoms at this time, he is sitting up in a chair eating his meal, there is no fever or chills no headache or dizziness no chest pain no shortness of breath no cough no nausea or vomiting no abdominal pain no diarrhea no blood in the stools no burning with urination no frequency or urgency and no hematuria. Infectious disease recommendation reviewed patient has a midline he will need to go to the group home on IV antibiotic. on 03/26/2020 patient was seen and examined on the medical floor he is alert and oriented 3 in no distress he is complaining of generalized weakness otherwise no specific complaints there is no fever or chills no headache or dizziness no chest pain no shortness of breath no cough no nausea or vomiting no abdominal pain no diarrhea and no urinary symptoms, he remains on IV antibiotic white blood count is still elevated . Patient has a midline in the right arm, he will need to continue IV antibiotic at the group home, he is urinating well without Clinton catheter. On 03/27/2020 patient was seen and examined on the medical floor he is alert and oriented 3 in no distress there is no fever or chills no headache or dizziness no chest pain no shortness of breath no cough no nausea or vomiting no abdominal pain no diarrhea no blood in the stools no burning with urination no frequency or urgency and no hematuria is still complaining of generalized weakness On 03/28/2020 patient is alert and oriented 3. Discussed case with Dr. Walt Aviles and continue daptomycin recommending keeping patient 24 more hours to watch kidney function. Likely discharge to [facility] tomorrow. Patient denies chest pain or shortness of breath. Patient denies nausea vomiting or diarrhea. Patient denies any urinary burning or frequency. Did discuss case also with nephrology services recommending lasix twice a day upon discharge On 03/29/2020 patient was seen and examined on the medical floor he is alert and oriented 3 in no apparent distress there is no fever or chills no headache or dizziness no chest pain no shortness of breath no cough no nausea or vomiting no abdominal pain no diarrhea no blood in the stools no burning with urination no frequency or urgency and no hematuria. Kidney function is slightly worse today. At this time patient is stable, awaiting clearance from infectious disease and nephrology, and the recommendation for discharge antibiotics On 03/30/2020 patient had low temp all-night. Rectal temps were obtained and patient was placed on bear hugger. Patient is alert and oriented. At this time critical care services have been consulted. Chest x-ray urine culture and blood cultures ordered. Did discuss case with infectious disease updated outpatient physician. Blood pressure and heart rate have remained stable. Lactic acid was checked in stable at 1.0. Kidney function slightly worse today. Continue to monitor patient very closely critical care infectious disease and nephrology services are following. On 03/31/2020 patient was seen and examined on the medical floor he is alert and oriented 3 in no distress, he is still having episodes of hypothermia, there is no fever or chills no headache or dizziness no chest pain no shortness of breath no cough no nausea or vomiting no abdominal pain no diarrhea and no urinary symptoms. Medication and labs were reviewed, input from multiple consultants reviewed in details. On 04/01/2020 patient is alert and oriented 3. Creatinine increasing. Patient also having low pressures. Recommendations per nephrology to transfer patient to ICU and start Levophed. 2-D echo cardiology consult placed also to rule out cardiorenal syndrome. Discussed case with critical care team and nurse practitioner, updated on nephrology recommendation on ICU transfer and initiation of Levophed. At this time patient denies chest pain. Patient denies shortness breath. Patient denies nausea vomiting or diarrhea. Patient denies any urinary burning or frequency. Critical care, nephrology, infectious disease already following. Cardiology consult placed. On 04/02/2020 patient was seen and examined he continued to have episodes of hypothermia and hypotension he was reevaluated by critical care Dr. Gomez today at this time patient will be transferred to intensive care unit. Clinically patient is alert and oriented he denies any chest pain he has occasional shortness of breath no headache or dizziness no nausea vomiting or abdominal pain and no urinary symptoms. On 04/03/2020 patient was seen and examined in the ICU he is alert responsive maintained on BiPAP, patient is maintained on IV fluid and IV vasopressors, he is also maintained on IV antibiotics daptomycin and Diflucan and meropenem and Flagyl his condition has stabilized since yesterday. On 04/04/2020 patient was seen and examined in the ICU he is alert responsive in no apparent distress he is currently maintained on oxygen via nasal cannula and is tolerating well he is in hemodialysis at this time there is no fever or chills no headache or dizziness no chest pain no shortness of breath no cough no nausea or vomiting no abdominal pain no diarrhea no blood in the stools no burning with urination no frequency or urgency and no hematuria On 04/05/2020 patient was seen and examined in the ICU he is alert responsive in no apparent distress he is still maintained on vasopressors, his vital examination reveals a temperature of 97 pulse 60 respiration 16 blood pressure 126/62 his white blood count is 24.0 hemoglobin 10.0 platelet count 172 INR 2.7 sodium 136 potassium 5.4 BUN 71 creatinine 3.65 he is scheduled to have hemodialysis again today there is no fever or chills no headache or dizziness no chest pain no shortness of breath no cough no nausea or vomiting no abdominal pain no diarrhea and no urinary symptoms Objective - Vital Signs Vital signs: Vital Signs Temp 98.7 F 04/05/20 12:00 Pulse 59 L 04/05/20 12:00 Resp 17 04/05/20 12:00 BP 92/45 04/05/20 12:00 Pulse Ox 96 04/05/20 12:00 Intake & Output 04/04/20 04/05/20 04/05/20 18:59 06:59 18:59 Intake Total 490 940.612 420 Output Total 2200 20 20 Balance -1710 920.612 400 Weight 173.9 kg Intake: IV 240 340 120 Meropenem 1 gm In Sodium 100 Chloride 0.9% 100 ml @ 33 .3 mls/hr IVPB Q12HR PAU Rx#:[id number] Sodium Chloride 0.9% 1, 240 240 120 000 ml @ 20 mls/hr IV . Q24H PAU Rx#:[id number] Intake, IV Titration 250 0.612 Amount Norepinephrine 32 mg In 250 Sodium Chloride 0.9% 218 ml @ 0.05 MCG/KG/MIN 2. 883 mls/hr IV .Q24H PAU Rx#:[id number] Sodium Chloride 0.9% 50 0.612 ml @ Titrate IVPB .Q0M PAU with Vasopressin 20 unit Rx#:[id number] Oral 600 300 Output: Urine 0 20 20 Hemodialysis 2200 Other: Voiding Method Indwelling Catheter Indwelling Catheter Indwelling Catheter ABP, PAP, CO, CI - Last Documented Arterial Blood Pressure 125/55 - Exam Head normocephalic and atraumatic Neck supple no JVD no goiter Lungs clear to auscultation bilaterally no wheezing or crackles Heart irregular rate. known atrial fibrillation Abdomen is soft nontender nondistended positive bowel sounds no hepatosplenomegaly Extremities no edema no cyanosis or clubbing Neuro alert and orientated to 2. Dementia Drainage noted to penile area around catheter. Erosion to groin area. - Labs CBC & Chem 7: 04/05/20 04:40 04/05/20 04:40 Labs: Abnormal Lab Results - Last 24 Hours (Table) 04/04/20 04/04/20 04/04/20 Range/Units 16:05 20:40 20:42 WBC (3.8-10.6) k/uL RBC (4.30-5.90) m/uL Hgb (13.0-17.5) gm/dL Hct (39.0-53.0) % MCV (80.0-100.0) fL MCHC (31.0-37.0) g/dL RDW (11.5-15.5) % Macrocytosis PT (9.0-12.0) sec INR (<1.2) ABG pH 7.16 L* (7.35-7.45) ABG pCO2 71 H* (35-45) mmHg ABG HCO3 26 H (21-25) mmol/L ABG Total CO2 28 H (19-24) mmol/L Sodium (137-145) mmol/L Potassium 5.3 H (3.5-5.1) mmol/L BUN (9-20) mg/dL Creatinine (0.66-1.25) mg/dL Glucose (74-99) mg/dL POC Glucose (mg/dL) 154 H (75-99) mg/dL Calcium (8.4-10.2) mg/dL 04/05/20 04/05/20 04/05/20 Range/Units 04:40 04:40 04:40 WBC 24.0 H (3.8-10.6) k/uL RBC 3.12 L (4.30-5.90) m/uL Hgb 10.0 L (13.0-17.5) gm/dL Hct 33.7 L (39.0-53.0) % MCV 107.8 H (80.0-100.0) fL MCHC 29.7 L (31.0-37.0) g/dL RDW 18.6 H (11.5-15.5) % Macrocytosis Marked A PT 26.4 H (9.0-12.0) sec INR 2.7 H (<1.2) ABG pH (7.35-7.45) ABG pCO2 (35-45) mmHg ABG HCO3 (21-25) mmol/L ABG Total CO2 (19-24) mmol/L Sodium 136 L (137-145) mmol/L Potassium 5.4 H (3.5-5.1) mmol/L BUN 71 H (9-20) mg/dL Creatinine 3.65 H (0.66-1.25) mg/dL Glucose 180 H (74-99) mg/dL POC Glucose (mg/dL) (75-99) mg/dL Calcium 7.4 L (8.4-10.2) mg/dL 04/05/20 04/05/20 04/05/20 Range/Units 04:44 09:26 11:57 WBC (3.8-10.6) k/uL RBC (4.30-5.90) m/uL Hgb (13.0-17.5) gm/dL Hct (39.0-53.0) % MCV (80.0-100.0) fL MCHC (31.0-37.0) g/dL RDW (11.5-15.5) % Macrocytosis PT (9.0-12.0) sec INR (<1.2) ABG pH 7.17 L* (7.35-7.45) ABG pCO2 76 H* (35-45) mmHg ABG HCO3 28 H (21-25) mmol/L ABG Total CO2 30 H (19-24) mmol/L Sodium (137-145) mmol/L Potassium (3.5-5.1) mmol/L BUN (9-20) mg/dL Creatinine (0.66-1.25) mg/dL Glucose (74-99) mg/dL POC Glucose (mg/dL) 176 H 191 H (75-99) mg/dL Calcium (8.4-10.2) mg/dL Microbiology - Last 24 Hours (Table) 03/30/20 10:26 Blood Culture - Final Blood No Growth after 144 hours 04/02/20 11:00 Blood Culture - Preliminary Blood No Growth after 48 hours Assessment and Plan Assessment: 1. Infection around catheter site with penile erosion. wound culture showing MRSA Enterobacter cloacae. 2. MRSA bacteremia repeat blood cultures ordered, 3. Gram-negative urinary tract infection related to ESBL Proteus mirabilis. 4. Acute kidney injury with elevated potassium. Creatinine elevated at 3.06 upon admission. Continue normal saline at 50. Nephrology services are following 5. Supratherapeutic INR. Hold Coumadin and recheck. patient did receive vitamin K. Current INR 3.5 6. Possible pneumonia. Patient started on Levaquin and Rocephin. Pulmonary service is consulted 7. History of insulin-dependent diabetes mellitus 8. History of essential hypertension 9. History of hyperlipidemia. Maintained on statin 10. History of stroke with suppressive aphasia 11. History of morbid obesity 12. History of urinary retention and difficulty with Clinton insertion. per urology servicesFoley catheter has been removed patient advised follow-up in one month with urology services for cystoscopy 13. Dementia. Maintained on Aricept and Namenda 14. Diarrhea will check stools for C. diff. 15. Nurse reporting that patient is making statements about being depressed, his is also concerned in that regard, at this time will restart patient on Wellbutrin SR 150 mg by mouth once daily 16. Sepsis with hypothermia and hypotension , currently he is in ICU maintained on BiPAP, IV fluids and IV antibiotics he is improving gradually DVT prophylaxis SCDs due to subtherapeutic INR. GI prophylaxis Protonix Infectious disease, nephrology and critical care service is consulted patient remains on daptomycin and Flagyl repeat blood cultures and urine and chest x-ray ordered continue Shahnaz cano for low temp Nephrology services recommend transfer to intensive care unit and initiation of Levophed for blood pressure support, this was discussed with the critical care t ruiz. Per critical care team will evaluate patient. 2-D echo and cardiology consult placed
[2020-04-05] MEDS: TAMSULOSIN 0.4 MG CAP.ER.24H PO SCH (20:35)
[2020-04-05] MEDS: DONEPEZIL 10 MG TAB PO SCH (20:36)
[2020-04-05] MEDS: SODIUM CHLORIDE 0.9% 1,000 ML IV SCH (20:46)
--- NOTE | 2020-04-05 21:52 | PN ---
PROGRESS NOTE DATE OF SERVICE: 04/05/2020 REASON FOR FOLLOWUP: MRSA bacteremia and a question of possible pneumonia. INTERVAL HISTORY: The patient is currently afebrile. He is still requiring high-dose pressor support to maintain his blood pressure. The patient dialysis. Denies having any chest pain. Occasional cough. No abdominal pain or diarrhea. PHYSICAL EXAMINATION: Blood pressure 97/42 with a pulse of 50, temperature 97.6. He is 96% on 4 L nasal cannula. General description is an elderly male lying in bed in no distress. RESPIRATORY SYSTEM: Unlabored breathing with decreased breath sounds at the base. No wheeze. HEART: S1, S2. Regular rate and rhythm. ABDOMEN: Soft. No tenderness. LABS: Hemoglobin is 10, white count of 24, BUN of 71, creatinine 3.65. Blood cultures so far negative. DIAGNOSTIC IMPRESSION AND PLAN: 1. Patient with MRSA bacteremia, possible soft tissue source. Blood culture has been negative. Covered with daptomycin; to continue. 2. Patient with episode of sepsis, possible pneumonia. Patient is covered with meropenem; to continue while waiting for the cultures to finalize and condition to stabilize. Continue with supportive care. MMODL / IJN: [id number] /
[2020-04-06] MEDS: HYDROCORTISONE SUCCINATE 100 MG/2 ML VIAL IV SCH ×3 (01:29→18:51)
[2020-04-06 05:22] LABS: Anisocytosis Slight; HCT 32.8 % (39.0-53.0); HGB 10.2 gm/dL (13.0-17.5); Hypochromasia Marked; MCH 33.1 pg (25.0-35.0); MCV 106.8 fL (80.0-100.0); Mean Platelet Volume 9.8; Platelet Count 132 k/uL (150-450); Poikilocytosis Marked; RBC 3.07 m/uL (4.30-5.90); RDW 18.5 % (11.5-15.5); WBC 19.1 k/uL (3.8-10.6)
[2020-04-06 05:37] LABS: INR 2.7 (<1.2); Prothrombin Time 26.7 sec (9.0-12.0)
[2020-04-06 05:38] LABS: Calcium 7.3 mg/dL (8.4-10.2); Potassium 4.4 mmol/L (3.5-5.1)
[2020-04-06 05:46] LABS: Macrocytosis Marked
[2020-04-06] MEDS: CHOLECALCIFEROL 1,000 UNIT TAB PO SCH (06:26)
[2020-04-06] MEDS: FERROUS SULFATE 325 MG TAB PO SCH (06:26)
[2020-04-06] MEDS: MAGNESIUM OXIDE 400 MG TAB PO SCH (06:27)
[2020-04-06] MEDS: METOPROLOL SUCCINATE (ER) 50 MG TAB.ER.24H PO SCH (06:27)
[2020-04-06] MEDS: PANTOPRAZOLE 40 MG TABLET PO SCH (06:27)
[2020-04-06] MEDS: MIDODRINE 5 MG TAB PO SCH ×2 (06:30→18:50)
[2020-04-06] MEDS: NOREPINEPHRINE 32 MG in SODIUM CHLORIDE 0.9% 218 ML IV SCH ×2 (07:05→21:04)
[2020-04-06] MEDS: SODIUM CHLORIDE 0.9% 50 ML with VASOPRESSIN 20 UNIT IVPB SCH ×2 (07:13)
[2020-04-06] MEDS: ALBUTEROL HFA INHALER INHALATION PRN ×2 (07:57→20:25)
[2020-04-06] MEDS: SYMBICORT 160-4.5 MCG INHALER INHALATION SCH ×2 (07:57→20:25)
[2020-04-06] MEDS ORDERED: HEPARIN SODIUM,PORCINE 5,000 UNIT/ML 1 ML VIAL ONE (09:20)
--- NOTE | 2020-04-06 09:30 | PN ---
PROGRESS NOTE Mr. Brady is a 74-year-old male with a history of a stroke, history of atrial fibrillation, permanent pacemaker implantation, aortic valve replacement and coronary bypass grafting who presented with sepsis, evidence of worsening renal function requiring dialysis. He is awake, following commands. Continues to be weak, requiring norepinephrine and vasopressin. He had a repeat echocardiogram yesterday revealed no evidence of pericardial effusion and preserved systolic function. He has no ventricular ectopic activity. He has no significant changes since yesterday. His hypotension is most likely in relation to his septic shock. He continues to be at this time on Aricept, Lasix 80 mg IV q.12 hours, Solu-Cortef, Namenda, metoprolol succinate 50 mg daily, midodrine, vasopressin, and Coumadin. PHYSICAL EXAMINATION: Blood pressure running in the 110s with a heart rate in the 60s. LUNGS: Clear. HEART: S1, S2 with prosthetic aortic sound and a systolic murmur, no diastolic murmur. ABDOMEN: Soft, obese, nontender. EXTREMITIES: Edema is noted. Evidence of excoriation noted on the abdomen and the groin. LAB DATA: Revealed a hemoglobin of 10.2. BUN and creatinine 68 and 3.26, potassium 4.4. IMPRESSION: 1. Septic shock requiring vasopressor. No evidence of cardiogenic shock at this point. 2. Worsening renal function requiring dialysis. Patient is scheduled to undergo dialysis today. 3. Atrial fibrillation with controlled ventricular response. 4. Status post coronary artery bypass grafting with no evidence of acute ischemic event. 5. Status post aortic valve replacement. 6. History of stroke. RECOMMENDATION: From the cardiac standpoint, he continues to be on anticoagulation. His INR today is 2.7. He is undergoing dialysis today. I would recommend continue supportive care. No further intervention is needed from the cardiac standpoint at this time. Will see him on an as-needed basis. Please feel free to call us for any question. MMODL / IJN: [id number] /
[2020-04-06] MEDS: MEROPENEM 1 GM in SODIUM CHLORIDE 0.9% 100 ML IVPB SCH ×2 (09:43→21:05)
[2020-04-06] MEDS: buPROPion SR 150 MG TABLET.ER PO SCH (09:43)
[2020-04-06] MEDS: MEMANTINE 5 MG TAB PO SCH ×2 (09:43→21:32)
[2020-04-06] MEDS: FUROSEMIDE 10 MG/ML 10 ML VIAL IV SCH ×2 (09:45→21:32)
[2020-04-06] MEDS: FLUCONAZOLE 100 MG TAB PO SCH (09:45)
--- NOTE | 2020-04-06 12:55 | P.PN ---
Subjective Patient is seen in follow-up for acute kidney injury. Patient's renal function did improve initially upon admission but worsened again. Creatinine up to 4.5 on April 02 - started on hemodialysis for severe volume overload and low urine output. Currently on 50 mics of Levophed as well as vasopressin. He is awake. Currently on 4 L high flow nasal cannula. Tolerated 3.3 L ultrafiltration yesterday. Remains severely volume overloaded. Tolerating dialysis well. Vital signs: Currently on Levophed and vasopressin. Heart rate stable. General: The patient appeared well nourished and normally developed. HEENT: Head exam is unremarkable. LUNGS: Breath sounds decreased. HEART: Rate and Rhythm are regular. ABDOMEN: Soft, nontender. Obese. EXTREMITITES: 3+ edema. Objective - Vital Signs Vital signs: Vital Signs Temp 98.0 F 04/06/20 12:00 Pulse 65 04/06/20 12:00 Resp 14 04/06/20 12:00 BP 92/45 04/06/20 12:00 Pulse Ox 97 04/06/20 12:00 Intake & Output 04/05/20 04/06/20 04/06/20 18:59 06:59 18:59 Intake Total 790 940.783 322.330 Output Total 3320 15 10 Balance -2530 925.783 312.330 Weight 175.8 kg Intake: IV 240 340 120 Meropenem 1 gm In Sodium 100 Chloride 0.9% 100 ml @ 33 .3 mls/hr IVPB Q12HR PAU Rx#:[id number] Sodium Chloride 0.9% 1, 240 240 120 000 ml @ 20 mls/hr IV . Q24H PAU Rx#:[id number] Intake, IV Titration 250 0.783 202.330 Amount Norepinephrine 32 mg In 250 201.911 Sodium Chloride 0.9% 218 ml @ 0.05 MCG/KG/MIN 2. 883 mls/hr IV .Q24H PAU Rx#:[id number] Sodium Chloride 0.9% 50 0.783 0.419 ml @ Titrate IVPB .Q0M PAU with Vasopressin 20 unit Rx#:[id number] Oral 300 100 Tube Feeding 500 Output: Urine 20 15 10 Hemodialysis 3300 Other: Voiding Method Indwelling Catheter Indwelling Catheter Indwelling Catheter ABP, PAP, CO, CI - Last Documented Arterial Blood Pressure 109/52 - Labs CBC & Chem 7: 04/06/20 05:05 04/06/20 05:05 Labs: Abnormal Lab Results - Last 24 Hours (Table) 04/05/20 04/06/20 04/06/20 Range/Units 16:41 05:05 05:05 WBC 19.1 H (3.8-10.6) k/uL RBC 3.07 L (4.30-5.90) m/uL Hgb 10.2 L (13.0-17.5) gm/dL Hct 32.8 L (39.0-53.0) % MCV 106.8 H (80.0-100.0) fL RDW 18.5 H (11.5-15.5) % Plt Count 132 L (150-450) k/uL Macrocytosis Marked A PT 26.7 H (9.0-12.0) sec INR 2.7 H (<1.2) Sodium (137-145) mmol/L BUN (9-20) mg/dL Creatinine (0.66-1.25) mg/dL Glucose (74-99) mg/dL POC Glucose (mg/dL) 170 H (75-99) mg/dL Calcium (8.4-10.2) mg/dL 04/06/20 Range/Units 05:05 WBC (3.8-10.6) k/uL RBC (4.30-5.90) m/uL Hgb (13.0-17.5) gm/dL Hct (39.0-53.0) % MCV (80.0-100.0) fL RDW (11.5-15.5) % Plt Count (150-450) k/uL Macrocytosis PT (9.0-12.0) sec INR (<1.2) Sodium 134 L (137-145) mmol/L BUN 68 H (9-20) mg/dL Creatinine 3.26 H (0.66-1.25) mg/dL Glucose 149 H (74-99) mg/dL POC Glucose (mg/dL) (75-99) mg/dL Calcium 7.3 L (8.4-10.2) mg/dL Microbiology - Last 24 Hours (Table) 04/02/20 11:00 Blood Culture - Preliminary Blood No Growth after 72 hours 03/30/20 10:26 Blood Culture - Final Blood No Growth after 144 hours Assessment and Plan Plan: Assessment: 1. Acute kidney injury secondary to ATN secondary to septic shock. Started on hemodialysis April 02 via R IJ catheter for severe volume overload and low urine output. Urine output 0-10 mL an hour. No evidence of urinary retention. No clear hydronephrosis noted on kidney ultrasound. 2. Hyperkalemia secondary to acute kidney injury. Improved postdialysis. 3. Septic shock maintained on Levophed, vasopressin. Low dose cosyntropin stimulation test was done earlier this admission and a cortisol level did rise post stimulation; however he was started on Cortef due to persistent hypotension. Now on stress dose steroids. 4. Volume overload. 5. Acute hypercapnic respiratory failure. 6. Penile erosion. Urology following. Plan: Maintain Lasix 80 mg IV twice daily. Currently seen while undergoing SLED - continue with daily SLED while he is on vasopressors. Wean vasopressors and FiO2. Continue to monitor renal function and urine output.
--- NOTE | 2020-04-06 13:04 | P.PN ---
Subjective Progress Note Date: 04/06/20 Te Brady is a 74-year-old male patient who presented to the ER from rehab with complaints of increased O fungal rash in the groin eroding foreskin secondary to catheter. Patient also had acute kidney injury and elevated INR. Patient's past medical history of atrial fibrillation which she is maintained on Coumadin, heart failure, COPD, dementia, hypertension, myocardial infarction, osteoarthritis with sleep apnea in which he uses home CPAP machine, pacemaker, anxiety and heart valve replacement. Patient's creatinine upon admission 3.07 and bun 77 potassium also elevated at 56. INR greater than 10. UA positive for the same Estrace. Chest x-ray completed showing T over the left lower lung r egion correlate for atelectasis or pneumonia. At this time patient has been started on Rocephin and Levaquin for IV antibiotics. Urology services have been consulted. Nephrology service is consulted for acute kidney injury. Potassium lowering cocktail given per nephrology. Dr. zavala and has been consulted for pulmonary due to possible pneumonia. Wound and blood cultures ordered. at this time patient denies chest pain or shortness of breath. Patient denies nausea vomiting or diarrhea. On 03/19/2020 patient was seen and examined on the medical floor he is alert and oriented 3 in no apparent distress, he is complaining of diarrhea with stool incontinence, otherwise he denies any complaints there is no fever or chills no headache or dizziness, no chest pain no shortness of breath no cough no nausea or vomiting no abdominal pain no blood in the stools no burning with urination no frequency or urgency and no hematuria 03/20/2020 patient was seen and examined on the medical floor he is alert and oriented 3 in no apparent distress there is no fever or chills no headache or d izziness no chest pain no shortness of breath no cough no nausea or vomiting no abdominal pain no diarrhea no blood in the stools no burning with urination no frequency or urgency and no hematuria. Clinton catheter has been removed and patient is able to urinate. INR is still elevated patient will be getting vitamin K 2.5 mg by mouth 1 time today on 03/21/2020 patient is alert and oriented 3currently sitting up in chair. INR today 3.5. patient maintained on meropenem and vancomycin for IV an tibiotics. At that time Clinton catheter has been removed to patient voiding independently will follow-up outpatient with urology for possible cystoscopy. At this time patient denies chest pain or shortness of breath. Patient denies nausea vomiting or diarrhea. Patient denies any urinary burning or frequency On 03/22/2020 patient was seen and examined on the medical floor he is alert and oriented 3 in no distress, he had the midline placed today and antibiotic were resumed, white blood count is elevated at 13.5, there is no fever or chills no headache or dizziness no chest pain no shortness of breath no cough no nausea or vomiting no abdominal pain no diarrhea and no urinary symptoms. On 03/23/2020 patient was seen and examined on the medical floor he is alert and oriented 3 in no apparent distress there is no fever or chills no headache or dizziness no chest pain no shortness of breath no cough no nausea or vomiting no abdominal pain no diarrhea and no urinary symptoms white blood count remains elevated, patient was resumed on IV antibiotic via midline will continue to monitor during this weekend. On 03/24/2020 patient was seen and examined on the medical floor he is alert and oriented in no apparent distress he is sitting up in chair he denies any complaints at this time there is no fever or chills no headache or dizziness no chest pain no shortness of breath no palpitation no cough no nausea or vomiting no abdominal pain no diarrhea no blood in the stools no burning with urination no frequency or urgency and no hematuria. On 03/25/2020 patient was seen and examined on the medical floor he is alert and oriented in no distress he denies any symptoms at this time, he is sitting up in a chair eating his meal, there is no fever or chills no headache or dizziness no chest pain no shortness of breath no cough no nausea or vomiting no abdominal pain no diarrhea no blood in the stools no burning with urination no frequency or urgency and no hematuria. Infectious disease recommendation reviewed patient has a midline he will need to go to the retirement on IV antibiotic. on 03/26/2020 patient was seen and examined on the medical floor he is alert and oriented 3 in no distress he is complaining of generalized weakness otherwise no specific complaints there is no fever or chills no headache or dizziness no chest pain no shortness of breath no cough no nausea or vomiting no abdominal pain no diarrhea and no urinary symptoms, he remains on IV antibiotic white blood count is still elevated . Patient has a midline in the right arm, he will need to continue IV antibiotic at the retirement, he is urinating well without Clinton catheter. On 03/27/2020 patient was seen and examined on the medical floor he is alert and oriented 3 in no distress there is no fever or chills no headache or dizziness no chest pain no shortness of breath no cough no nausea or vomiting no abdominal pain no diarrhea no blood in the stools no burning with urination no frequency or urgency and no hematuria is still complaining of generalized weakness On 03/28/2020 patient is alert and oriented 3. Discussed case with Dr. Walt Aviles and continue daptomycin recommending keeping patient 24 more hours to watch kidney function. Likely discharge to [facility] tomorrow. Patient denies chest pain or shortness of breath. Patient denies nausea vomiting or diarrhea. Patient denies any urinary burning or frequency. Did discuss case also with nephrology services recommending lasix twice a day upon discharge On 03/29/2020 patient was seen and examined on the medical floor he is alert and oriented 3 in no apparent distress there is no fever or chills no headache or dizziness no chest pain no shortness of breath no cough no nausea or vomiting no abdominal pain no diarrhea no blood in the stools no burning with urination no frequency or urgency and no hematuria. Kidney function is slightly worse today. At this time patient is stable, awaiting clearance from infectious disease and nephrology, and the recommendation for discharge antibiotics On 03/30/2020 patient had low temp all-night. Rectal temps were obtained and patient was placed on bear hugger. Patient is alert and oriented. At this time critical care services have been consulted. Chest x-ray urine culture and blood cultures ordered. Did discuss case with infectious disease updated outpatient physician. Blood pressure and heart rate have remained stable. Lactic acid was checked in stable at 1.0. Kidney function slightly worse today. Continue to monitor patient very closely critical care infectious disease and nephrology services are following. On 03/31/2020 patient was seen and examined on the medical floor he is alert and oriented 3 in no distress, he is still having episodes of hypothermia, there is no fever or chills no headache or dizziness no chest pain no shortness of breath no cough no nausea or vomiting no abdominal pain no diarrhea and no urinary symptoms. Medication and labs were reviewed, input from multiple consultants reviewed in details. On 04/01/2020 patient is alert and oriented 3. Creatinine increasing. Patient also having low pressures. Recommendations per nephrology to transfer patient to ICU and start Levophed. 2-D echo cardiology consult placed also to rule out cardiorenal syndrome. Discussed case with critical care team and nurse practitioner, updated on nephrology recommendation on ICU transfer and initiation of Levophed. At this time patient denies chest pain. Patient denies shortness breath. Patient denies nausea vomiting or diarrhea. Patient denies any urinary burning or frequency. Critical care, nephrology, infectious disease already following. Cardiology consult placed. On 04/02/2020 patient was seen and examined he continued to have episodes of hypothermia and hypotension he was reevaluated by critical care Dr. Gomez today at this time patient will be transferred to intensive care unit. Clinically patient is alert and oriented he denies any chest pain he has occasional shortness of breath no headache or dizziness no nausea vomiting or abdominal pain and no urinary symptoms. On 04/03/2020 patient was seen and examined in the ICU he is alert responsive maintained on BiPAP, patient is maintained on IV fluid and IV vasopressors, he is also maintained on IV antibiotics daptomycin and Diflucan and meropenem and Flagyl his condition has stabilized since yesterday. On 04/04/2020 patient was seen and examined in the ICU he is alert responsive in no apparent distress he is currently maintained on oxygen via nasal cannula and is tolerating well he is in hemodialysis at this time there is no fever or chills no headache or dizziness no chest pain no shortness of breath no cough no nausea or vomiting no abdominal pain no diarrhea no blood in the stools no burning with urination no frequency or urgency and no hematuria On 04/05/2020 patient was seen and examined in the ICU he is alert responsive in no apparent distress he is still maintained on vasopressors, his vital examination reveals a temperature of 97 pulse 60 respiration 16 blood pressure 126/62 his white blood count is 24.0 hemoglobin 10.0 platelet count 172 INR 2.7 sodium 136 potassium 5.4 BUN 71 creatinine 3.65 he is scheduled to have hemodialysis again today there is no fever or chills no headache or dizziness no chest pain no shortness of breath no cough no nausea or vomiting no abdominal pain no diarrhea and no urinary symptoms. On 04/06/2020 patient was seen and examined in the ICU he is alert and oriented 3 in no distress till maintained on vasopressor he is receiving hemodialysis again today clinically he is alert and oriented and denying any complaints there is no fever or chills no headache or dizziness no chest pain no shortness of breath no cough no nausea or vomiting no abdominal pain no diarrhea and no urinary symptoms Objective - Vital Signs Vital signs: Vital Signs Temp 98.0 F 04/06/20 12:00 Pulse 65 04/06/20 12:00 Resp 14 04/06/20 12:00 BP 92/45 04/06/20 12:00 Pulse Ox 97 04/06/20 12:00 Intake & Output 04/05/20 04/06/20 04/06/20 18:59 06:59 18:59 Intake Total 790 940.783 322.330 Output Total 3320 15 10 Balance -2530 925.783 312.330 Weight 175.8 kg Intake: IV 240 340 120 Meropenem 1 gm In Sodium 100 Chloride 0.9% 100 ml @ 33 .3 mls/hr IVPB Q12HR [facility] Rx#:[id number] Sodium Chloride 0.9% 1, 240 240 120 000 ml @ 20 mls/hr IV . Q24H [facility] Rx#:[id number] Intake, IV Titration 250 0.783 202.330 Amount Norepinephrine 32 mg In 250 201.911 Sodium Chloride 0.9% 218 ml @ 0.05 MCG/KG/MIN 2. 883 mls/hr IV .Q24H [facility] Rx#:[id number] Sodium Chloride 0.9% 50 0.783 0.419 ml @ Titrate IVPB .Q0M [facility] with Vasopressin 20 unit Rx#:[id number] Oral 300 100 Tube Feeding 500 Output: Urine 20 15 10 Hemodialysis 3300 Other: Voiding Method Indwelling Catheter Indwelling Catheter Indwelling Catheter ABP, PAP, CO, CI - Last Documented Arterial Blood Pressure 109/52 - Exam Head normocephalic and atraumatic Neck supple no JVD no goiter Lungs clear to auscultation bilaterally no wheezing or crackles Heart irregular rate. known atrial fibrillation Abdomen is soft nontender nondistended positive bowel sounds no hepatosplenomegaly Extremities no edema no cyanosis or clubbing Neuro alert and orientated to 2. Dementia Drainage noted to penile area around catheter. Erosion to groin area. - Labs CBC & Chem 7: 04/06/20 05:05 04/06/20 05:05 Labs: Abnormal Lab Results - Last 24 Hours (Table) 04/05/20 04/06/20 04/06/20 Range/Units 16:41 05:05 05:05 WBC 19.1 H (3.8-10.6) k/uL RBC 3.07 L (4.30-5.90) m/uL Hgb 10.2 L (13.0-17.5) gm/dL Hct 32.8 L (39.0-53.0) % MCV 106.8 H (80.0-100.0) fL RDW 18.5 H (11.5-15.5) % Plt Count 132 L (150-450) k/uL Macrocytosis Marked A PT 26.7 H (9.0-12.0) sec INR 2.7 H (<1.2) Sodium (137-145) mmol/L BUN (9-20) mg/dL Creatinine (0.66-1.25) mg/dL Glucose (74-99) mg/dL POC Glucose (mg/dL) 170 H (75-99) mg/dL Calcium (8.4-10.2) mg/dL 04/06/20 Range/Units 05:05 WBC (3.8-10.6) k/uL RBC (4.30-5.90) m/uL Hgb (13.0-17.5) gm/dL Hct (39.0-53.0) % MCV (80.0-100.0) fL RDW (11.5-15.5) % Plt Count (150-450) k/uL Macrocytosis PT (9.0-12.0) sec INR (<1.2) Sodium 134 L (137-145) mmol/L BUN 68 H (9-20) mg/dL Creatinine 3.26 H (0.66-1.25) mg/dL Glucose 149 H (74-99) mg/dL POC Glucose (mg/dL) (75-99) mg/dL Calcium 7.3 L (8.4-10.2) mg/dL Microbiology - Last 24 Hours (Table) 04/02/20 11:00 Blood Culture - Preliminary Blood No Growth after 72 hours 03/30/20 10:26 Blood Culture - Final Blood No Growth after 144 hours Assessment and Plan Assessment: 1. Infection around catheter site with penile erosion. wound culture showing MRSA Enterobacter cloacae. 2. MRSA bacteremia repeat blood cultures ordered, 3. Gram-negative urinary tract infection related to ESBL Proteus mirabilis. 4. Acute kidney injury with elevated potassium. Creatinine elevated at 3.06 upon admission. Continue normal saline at 50. Nephrology services are following 5. Supratherapeutic INR. Hold Coumadin and recheck. patient did receive vitamin K. Current INR 3.5 6. Possible pneumonia. Patient started on Levaquin and Rocephin. Pulmonary service is consulted 7. History of insulin-dependent diabetes mellitus 8. History of essential hypertension 9. History of hyperlipidemia. Maintained on statin 10. History of stroke with suppressive aphasia 11. History of morbid obesity 12. History of urinary retention and difficulty with Clinton insertion. per urology servicesFoley catheter has been removed patient advised follow-up in one month with urology services for cystoscopy 13. Dementia. Maintained on Aricept and Namenda 14. Diarrhea will check stools for C. diff. 15. Nurse reporting that patient is making statements about being depressed, his is also concerned in that regard, at this time will restart patient on Wellbutrin SR 150 mg by mouth once daily 16. Sepsis with hypothermia and hypotension , currently he is in ICU maintained on BiPAP, IV fluids and IV antibiotics he is improving gradually DVT prophylaxis SCDs due to subtherapeutic INR. GI prophylaxis Protonix Infectious disease, nephrology and critical care service is consulted patient remains on daptomycin and Flagyl repeat blood cultures and urine and chest x-ray ordered continue Shahnaz ofeliagglarry for low temp Nephrology services recommend transfer to intensive care unit and initiation of Levophed for blood pressure support, this was discussed with the critical care team. Per critical care team will evaluate patient. 2-D echo and cardiology consult placed
--- NOTE | 2020-04-06 14:15 | P.PN ---
Subjective Progress Note Date: 04/06/20 Sepsis secondary to penile erosion with secondary cellulitis On 04/02/2020, the patient got transferred to the intensive care unit. Earlier this morning, the patient was found to be hypothermic, hypotensive and the patient also having diminished level of consciousness. I saw the patient and I noted that the patient is also developed an acute kidney injury in the creatinine has been on a gradual rise over the past few days is currently up to 4.52. An immediate blood gases was done and the patient was found to have severe asked her acidosis. PH was at 7. 06 with a pCO2 of 77 acute of 161. At that point, the patient was placed on a BiPAP and BiPAP pressures were at 14/6 cm of water and FiO2 is being titrated to maintain a saturation above 90%. Subsequent blood gases showed some limited improvement with a pH of 7.09 and a pCO2 of 72 and pO2 of 99. The patient has significant diminished level of consciousness. He looks quite lethargic and obtunded. I contacted the . We radiatio for the need for intubation mechanical ventilation. The wanted to come to the hospital discussed this matter further. As such the patient is currently on a BiPAP for respiratory support. The patient was given a liter of IV fluids on the floor with normal saline and currently the patient is receiving IV fluids at the rate of 75 mL an hour. The patient was also started on norepinephrine infusion for blood pressure support. Antibiotic modification was done and the patient was started on IV Merrem in combination to Flagyl and daptomycin. His cardiac rhythm is sinus and the patient is having frequent PACs. INR therapeutic for now as the patient is on long-term articulation with warfarin. Note that the patient had a penile ulcer/infection with secondary cellulitis. The cultures were obtained earlier showed MRSA and Enterobacter and MRSA was also cultured and the blood on 03/17/2020. In addition to that the patient positive cultures for Proteus mirabilis in the urine from 03/17/2020. Anaerobes are also cultured from the penile wound. Most recent temperature is 94.4. Nephrology is on the case regarding acute kidney injury and the patient is oliguric and the patient is being considered for hemodialysis at this point in time. He is morbidly obese and he carries a BMI 53. On 04/03/2020 the patient is being seen for a follow-up. The patient is improved considerably compared to yesterday. Note that the patient came in to the ICU with septic shock. The patient was altered mentally and the patient was also having severe hypotension and he was hypothermic. Overnight, the patient was suspected IV fluids. The patient was also given pressors and the patient was on high-dose norepinephrine infusion running at 60 mg per minute and vasopressin at 0.03 units an hour. The patient was also supported with BiPAP throughout the night. He underwent dialysis also. This morning, there is marked improvement in the patient's overall mentation. His much more awake and alert. Repeat blood gases was done on the patient was on 10 L of oxygen by nasal cannula and the patient had a pH of 7.12 with a pCO2 55 and pO2 1:30. Note that during hemodialysis, the patient had a 1 L of ultrafiltration also. He is on a broad-spectrum antibiotics. Currently on a combination of meropenem, daptomycin, Flagyl and Diflucan. Hemodialysis to follow today. He is much more awake and alert. He is tolerating diet. The white cell count is up to 21.8 with a hemoglobin of 10.1. Based on the electrolytes, the patient's potassium level of 5.7. BUN is 85 with a creatinine of 3.97. The UA was abnormal and urine culture and blood cultures still pending for now. Furthermore during the day, the patient has been weaned down to 4 L of oxygen by nasal cannula. His current pulse ox 97%. His chest x-ray is showing mild bibasilar pulmonary infiltrates which is improved compared to yesterday and the patient has some mild cardiomegaly. On 04/04/2020, the patient again doing poorly. He remains in septic shock requiring high doses of pressors. The patient is also more lethargic and somnolent compared to yesterday. He is currently in 40s of oxygen by nasal cannula with pulse ox of 99%. He is profoundly hypotensive and the patient is still requiring high dose of Levothroid which is running at 90 g per minute and the patient is also on vasopressin at 0.04 units an hour and the patient on normal saline at 20 an hour. The patient remains on stress dose hydrocortisone. Antibiotic coverage essentially the same and the patient remains on a combination of daptomycin, meropenem, Flagyl and Diflucan. Repeat cultures of been all negative. Temperature has improved and the patient is not as hypothermic as he was yesterday. On his blood work, the patient continues to have a component of respiratory acidosis. The blood gas showed pH of 7.11 with a pCO2 of 69 and pO2 of 109. Not much different compared to yesterday's ABGs. He is not requiring BiPAP however. His BUN is at 81 with a creatinine of 4.02. His serum potassium is at 6. His serum bicarbonate 23. LFTs are slightly elevated with an AST of 141, ALT of 66, and alkaline phosphatase of 136. The patient is to undergo another session of hemodialysis today. This will be a slow low efficiency dialysis as the patient is quite hemodynamically stable. On 04/05/2020, the patient is being seen for a follow-up. He is awake. Unfortunately, the patient remains hemodynamically unstable requiring high doses of pressors. The patient is currently on a combination of vasopressin 0.04 units an hour and the patient also on norepinephrine infusion 75 g per minute. IV fluids are at KVO. The patient is to undergo another session of dialysis and the patient is showing improvement in the volume status and third spacing by daily hemodialysis. In terms of his respiratory status, the patient is on 4 L of oxygen by nasal cannula with a pulse ox of 96%. he is not hypothermic. He is not febrile. He does not have any significant altered mentation. He is awake and alert and following commands and answering questions appropriately. No nausea. No vomiting. No diarrhea. He is on broad-spectrum antibiotics and there is no clear source of infection at this point in time specially in the repeat cultures came back negative. I repeated a limited echocardiogram in the patient's LV function was again within normal limits. As such, the exact cause for his hypotension is not clear to me at this point in time although I strongly suspected is a septic shock. The broad-spectrum antibiotics including [place] of daptomycin, meropenem, Flagyl and Diflucan. Repeat cultures will be obtained. Meanwhile, the patient would undergo another session of hemodialysis. He has a left IJ temporary dialysis catheter in the right IJ triple-lumen catheter and exit sites are essentially clean and intact. The blood gases showing a component of respiratory acidosis and the patient's speech is at 7.17 with a pCO2 of 76 and pO2 of 85 and this was on FiO2 of 3 6% which is 40s about 2 by nasal cannula. White cell count is at 24. Hemoglobin is at 10.0. Urine output is quite diminished in the order of 5-10 mL an hour. 04/06/2020, the patient continues to be awake. Unfortunately, he continues to be in a shock state requiring high doses of pressors. No new culture results of the cultures of been all negative. Noted repeat cultures were sent yesterday as there was suspicion for ongoing anemia based on his underlying profound hypotension. This morning, the patient is running on norepinephrine infusion at 0.3 mg/kg per minute. Vasopressin is running at 0.04 units an hour. He is undergoing dialysis. Is tolerating dialysis well without any significant hypotension. Fluid balance is -1.6 L over the past 24 hours and there is ongoing improvement in his third spacing. Antibiotic coverage including combination of daptomycin and meropenem and Diflucan. The patient is afebrile. The patient is not having any altered mentation. Or encephalopathy. The patient is tolerating his diet. As reported, there is improvement in the third spacing. Urine output remains low in the order of 10 mL an hour. His white cell count shows improvement in his white cell count which is down to 19. BUN is at 68 with a creatinine of 3.26. His INR is currently at 2.7 with a PT of 26.7. Objective - Vital Signs Vital signs: Vital Signs Temp 97.3 F L 04/06/20 13:56 Pulse 59 L 04/06/20 13:56 Resp 15 04/06/20 13:56 BP 114/52 04/06/20 13:56 Pulse Ox 96 04/06/20 13:00 Intake & Output 04/05/20 04/06/20 04/06/20 18:59 06:59 18:59 Intake Total 790 940.783 322.330 Output Total 3320 15 2510 Balance -2530 925.783 -2187.670 Weight 175.8 kg Intake: IV 240 340 120 Meropenem 1 gm In Sodium 100 Chloride 0.9% 100 ml @ 33 .3 mls/hr IVPB Q12HR PAU Rx#:[id number] Sodium Chloride 0.9% 1, 240 240 120 000 ml @ 20 mls/hr IV . Q24H PAU Rx#:[id number] Intake, IV Titration 250 0.783 202.330 Amount Norepinephrine 32 mg In 250 201.911 Sodium Chloride 0.9% 218 ml @ 0.05 MCG/KG/MIN 2. 883 mls/hr IV .Q24H PAU Rx#:[id number] Sodium Chloride 0.9% 50 0.783 0.419 ml @ Titrate IVPB .Q0M PAU with Vasopressin 20 unit Rx#:[id number] Oral 300 100 Tube Feeding 500 Output: Urine 20 15 10 Hemodialysis 3300 2500 Other: Voiding Method Indwelling Catheter Indwelling Catheter Indwelling Catheter ABP, PAP, CO, CI - Last Documented Arterial Blood Pressure 110/53 - Exam GENERAL EXAM: the patient is awake and alert and much less somnolent 74-year-old white male, awake and alert and comfortable on 4 L of oxygen by nasal cannula. HEAD: Normocephalic/atraumatic. EYES: Normal reaction of pupils, equal size. Conjunctiva pink, sclera white. NOSE: Clear with pink turbinates. THROAT: No erythema or exudates. NECK: No masses, no JVD, no thyroid enlargement, no adenopathy. CHEST: No chest wall deformity. Symmetrical expansion. LUNGS: Equal air entry with bibasilar crackles. The patient is currently on BiPAP for respiratory support. CVS: Regular rate and rhythm, normal S1 and S2, no gallops, no murmurs, no rubs ABDOMEN: Soft, nontender. No hepatosplenomegaly, normal bowel sounds, no guarding or rigidity. The patient has a large anterior abdominal wound from previous abdominal surgeries. EXTREMITIES: No clubbing, there is edema bilaterally and the patient has chronic wounds and ulcerations in addition to that there is diminished pulses in all 4 extremities. The penile also seems to be improving and there is no purulent drainage at this point in time and the patient has no scrotal cellulitis. There is evidence of scrotal edema. Note that there is improvement in the swelling in lower extremities bilaterally. The lower extremity is wrapped at this point in time. Distal scrotal edema. No purulent discharge from the penile ulcer. MUSCULOSKELETAL: Muscle tone is markedly diminished in all 4 extremities. SPINE: No scoliosis or deformity SKIN: Bilateral abdominal ulcerations, and maceration with excoriation, left medial calcaneal ulceration CENTRAL NERVOUS SYSTEM:. The patient is awake and alert and following commands. patient is moving all 4 extremities without any limitation. He has diminished strength in all 4 extremities and there is global weakness. - Labs CBC & Chem 7: 04/06/20 05:05 04/06/20 05:05 Labs: Abnormal Lab Results - Last 24 Hours (Table) 04/05/20 04/06/20 04/06/20 Range/Units 16:41 05:05 05:05 WBC 19.1 H (3.8-10.6) k/uL RBC 3.07 L (4.30-5.90) m/uL Hgb 10.2 L (13.0-17.5) gm/dL Hct 32.8 L (39.0-53.0) % MCV 106.8 H (80.0-100.0) fL RDW 18.5 H (11.5-15.5) % Plt Count 132 L (150-450) k/uL Macrocytosis Marked A PT 26.7 H (9.0-12.0) sec INR 2.7 H (<1.2) Sodium (137-145) mmol/L BUN (9-20) mg/dL Creatinine (0.66-1.25) mg/dL Glucose (74-99) mg/dL POC Glucose (mg/dL) 170 H (75-99) mg/dL Calcium (8.4-10.2) mg/dL 04/06/20 Range/Units 05:05 WBC (3.8-10.6) k/uL RBC (4.30-5.90) m/uL Hgb (13.0-17.5) gm/dL Hct (39.0-53.0) % MCV (80.0-100.0) fL RDW (11.5-15.5) % Plt Count (150-450) k/uL Macrocytosis PT (9.0-12.0) sec INR (<1.2) Sodium 134 L (137-145) mmol/L BUN 68 H (9-20) mg/dL Creatinine 3.26 H (0.66-1.25) mg/dL Glucose 149 H (74-99) mg/dL POC Glucose (mg/dL) (75-99) mg/dL Calcium 7.3 L (8.4-10.2) mg/dL Microbiology - Last 24 Hours (Table) 04/05/20 11:56 Blood Culture - Preliminary Blood No Growth after 24 hours 04/02/20 11:00 Blood Culture - Preliminary Blood No Growth after 96 hours 03/30/20 10:26 Blood Culture - Final Blood No Growth after 144 hours Assessment and Plan Plan: 1 Septic shock. The patient is came in to the ICU hypotensive and hypothermic and his septic shock. Despite being on adequate antibiotic coverage, the patient continues to be requiring high doses of pressors and the patient is on high-dose norepinephrine infusion and vasopressin physiologic dose. The patient is also on stress dose hydrocortisone. A limited echocardiac Star was repeated and the patient was found to have a reserved LV function. No evidence of any pericardial effusion. Over the past 24 hours, limited success in terms of weaning his pressors and the patient continues to be on higher dose of norepinephrine addition to physiologic dose of vasopressin and sisters hydrocortisone. Repeat cultures of been negative and the patient is afebrile for now. 2 acute hypoxic/hypercapnic respiratory failure. Based on today's blood gas, there is improvement and acid base status. The patient is ventilating more effectively. Nevertheless, there is still a component of metabolic and respiratory acidosis. Currently the patient is l is on 4 L iters by nasal cannula. Repeat blood gases was noted from today. 3 Penile erosion secondary to catheter with suspected infection with secondary cellulitis, Wound cultures showed MRSA, Enterobacter cloacae in addition to anaerobes. The patient also staphylococcal septicemia 4 staph septicemia with MRSA 5 UTI secondary to ESBL Proteus mirabilis 6 acute kidney injury with secondary hypotension and sepsis and the patient has developed worsening in renal function with oligoria, currently the patient is undergoing hemodialysis ultrafiltration on a daily basis with improvement in the third spacing in the volume status. 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 14 history of pacemaker insertion for symptomatically bradycardia 15 COPD currently on room air oxygen with a pulse ox of 94% 16. chronic anemia 17. hyperlipidemia 18. history of previous CVA with expressive aphasia 19 BPH 20 chronic anemia, multifactorial, 21 hypothermia, improved 22 acute leukocytosis, white cell count remains elevated, improving Plan Keep the patient intensive care unit. Broad-spectrum antibiotic coverage and add IV Merrem in addition to daptomycin and Flagyl, noted the patient is also on Diflucan. The repeat blood cultures of been negative. A limited echocardiogram was done yesterday and the patient has a reserved LV function without pericardial effusion. Continue pressors for hemodynamic support, and hoping to wean off the norepinephrine infusion gradually Continue stress dose hydrocortisone 100 mg every 8 hours of the patient's baseline serum cortisol level was low Hemodialysis with ultrafiltration today Continue articulation with Coumadin and monitor the PT/INR on a daily basis which is therapeutic at this point in time. The has been updated on the condition. Overall conditions remain unchanged over the past 24 hours. The patient is still being seen by various consultants including infectious disease and nephrology. He does have had an aortic valve replacement. No evidence of endocarditis. No evidence of any endovascular infection. He may have an underlying poor vascular tone for sepsis and he will be gradually weaned off the pressors. Condition is critical at this point in time. This evaluation was done more than 30 minutes. Time with Patient: Greater than 30
[2020-04-06] MEDS ORDERED: WARFARIN 2 MG TAB PO ONE (18:00)
[2020-04-06] MEDS: SODIUM CHLORIDE 0.9% 1,000 ML IV SCH (21:06)
[2020-04-06] MEDS: DONEPEZIL 10 MG TAB PO SCH (21:32)
[2020-04-06] MEDS: TAMSULOSIN 0.4 MG CAP.ER.24H PO SCH (21:32)
--- NOTE | 2020-04-06 22:44 | PN ---
PROGRESS NOTE DATE OF SERVICE: 04/06/2020 REASON FOR FOLLOWUP: 1. MRSA bacteremia secondary to soft tissue source. 2. Possible pneumonia and sepsis. INTERVAL HISTORY: The patient is currently afebrile. The patient did have some improvement in his blood pressure and required less pressor support; however, he still on 50 mcg of levophed. The patient is slightly more awake, alert. He denies having any chest pain, shortness of breath. Minimal cough. No abdominal pain or diarrhea. PHYSICAL EXAMINATION: Blood pressure 92/45, pulse of 50, temperature 98. He is 96% on 8 L high-flow oxygen. General description is an elderly male lying in bed in no distress. RESPIRATORY SYSTEM: Unlabored breathing with decreased breath sounds at the base. No wheeze. HEART: S1, S2. Regular rate and rhythm. ABDOMEN: Soft. Mildly distended. No guarding or rigidity. EXTREMITIES: Right leg currently wrapped up. LABS: Hemoglobin is 10.2, white count 19.1, BUN of 68, creatinine 3.26. Culture so far negative. DIAGNOSTIC IMPRESSION AND PLAN: 1. Patient with methicillin-resistant Staphylococcus aeruginosa bacteremia. Source is likely soft tissue. Follow-up blood culture negative. Currently covered with daptomycin; to continue. 2. sepsis. Possible pneumonia. Covered with meropenem. Try to obtain a sputum sample and monitor his clinical course closely. MMODL / IJN: [id number] /
[2020-04-07] MEDS: HYDROCORTISONE SUCCINATE 100 MG/2 ML VIAL IV SCH ×3 (00:39→16:56)
[2020-04-07] MEDS: SODIUM CHLORIDE 0.9% 50 ML with VASOPRESSIN 20 UNIT IVPB SCH ×6 (00:47→20:54)
[2020-04-07 04:25] LABS: Anisocytosis Slight; HCT 32.5 % (39.0-53.0); HGB 9.7 gm/dL (13.0-17.5); Hypochromasia Marked; MCHC 29.9 g/dL (31.0-37.0); Macrocytosis Marked; Mean Platelet Volume 9.1; Platelet Count 105 k/uL (150-450); Poikilocytosis Marked; RBC 3.03 m/uL (4.30-5.90); WBC 17.6 k/uL (3.8-10.6)
[2020-04-07 04:32] LABS: Calcium 7.1 mg/dL (8.4-10.2); Potassium 4.2 mmol/L (3.5-5.1)
[2020-04-07 06:10] LABS: INR 3.4 (<1.2); Prothrombin Time 32.9 sec (9.0-12.0)
[2020-04-07] MEDS: CHOLECALCIFEROL 1,000 UNIT TAB PO SCH (06:46)
[2020-04-07] MEDS: MIDODRINE 5 MG TAB PO SCH ×2 (06:46→16:56)
[2020-04-07] MEDS: FERROUS SULFATE 325 MG TAB PO SCH (06:46)
[2020-04-07] MEDS: MAGNESIUM OXIDE 400 MG TAB PO SCH (06:47)
[2020-04-07] MEDS: PANTOPRAZOLE 40 MG TABLET PO SCH (06:47)
[2020-04-07] MEDS: MEROPENEM 1 GM in SODIUM CHLORIDE 0.9% 100 ML IVPB SCH ×2 (07:56→21:17)
[2020-04-07] MEDS: buPROPion SR 150 MG TABLET.ER PO SCH (07:58)
[2020-04-07] MEDS: FLUCONAZOLE 100 MG TAB PO SCH (07:58)
[2020-04-07] MEDS: MEMANTINE 5 MG TAB PO SCH ×2 (07:58→21:12)
[2020-04-07] MEDS: SYMBICORT 160-4.5 MCG INHALER INHALATION SCH ×3 (08:57→20:44)
[2020-04-07] MEDS: ALBUTEROL HFA INHALER INHALATION PRN ×3 (09:00→20:44)
[2020-04-07] MEDS: FUROSEMIDE 10 MG/ML 10 ML VIAL IV SCH (09:54)
[2020-04-07] MEDS: METOPROLOL SUCCINATE (ER) 50 MG TAB.ER.24H PO SCH (09:54)
[2020-04-07] MEDS: NOREPINEPHRINE 32 MG in SODIUM CHLORIDE 0.9% 218 ML IV SCH ×2 (12:35→20:54)
--- NOTE | 2020-04-07 13:28 | P.PN ---
Subjective Patient is seen in follow-up for acute kidney injury. Patient's renal function did improve initially upon admission but worsened again. Creatinine up to 4.5 on April 02 - started on hemodialysis for severe volume overload and low urine output. Currently on 60 mics of Levophed as well as vasopressin. He is awake. Currently on 6 L high flow nasal cannula. Tolerated 2.5 L ultrafiltration yesterday. Remains severely volume overloaded. Tolerating dialysis well. Vital signs: Currently on Levophed and vasopressin. Heart rate stable. General: The patient appeared well nourished and normally developed. HEENT: Head exam is unremarkable. LUNGS: Breath sounds decreased. HEART: Rate and Rhythm are regular. ABDOMEN: Soft, nontender. Obese. EXTREMITITES: 3+ edema. Objective - Vital Signs Vital signs: Vital Signs Temp 92.4 F L 04/07/20 12:42 Pulse 60 04/07/20 13:00 Resp 16 04/07/20 13:00 BP 93/46 04/07/20 13:00 Pulse Ox 94 L 04/07/20 13:00 Intake & Output 04/06/20 04/07/20 04/07/20 18:59 06:59 18:59 Intake Total 442.330 953.348 278.827 Output Total 2510 25 2500 Balance -2067.670 928.348 -2221.173 Weight 175.5 kg Intake: IV 240 370 161 Meropenem 1 gm In Sodium 100 Chloride 0.9% 100 ml @ 33 .3 mls/hr IVPB Q12HR PAU Rx#:[id number] Sodium Chloride 0.9% 1, 240 240 140 000 ml @ 20 mls/hr IV . Q24H PAU Rx#:[id number] pressure bag 30 21 Intake, IV Titration 202.330 383.348 117.827 Amount Norepinephrine 32 mg In 201.911 382.645 117.355 Sodium Chloride 0.9% 218 ml @ 0.05 MCG/KG/MIN 2. 883 mls/hr IV .Q24H PAU Rx#:[id number] Sodium Chloride 0.9% 50 0.419 0.703 0.472 ml @ Titrate IVPB .Q0M PAU with Vasopressin 20 unit Rx#:[id number] Oral 200 Output: Urine 10 25 Hemodialysis 2500 2500 Other: Voiding Method Indwelling Catheter Indwelling Catheter Indwelling Catheter ABP, PAP, CO, CI - Last Documented Arterial Blood Pressure 100/43 - Labs CBC & Chem 7: 04/07/20 03:50 04/07/20 03:50 Labs: Abnormal Lab Results - Last 24 Hours (Table) 04/07/20 04/07/20 04/07/20 Range/Units 03:50 03:50 05:45 WBC 17.6 H (3.8-10.6) k/uL RBC 3.03 L (4.30-5.90) m/uL Hgb 9.7 L (13.0-17.5) gm/dL Hct 32.5 L (39.0-53.0) % MCV 107.0 H (80.0-100.0) fL MCHC 29.9 L (31.0-37.0) g/dL RDW 19.0 H (11.5-15.5) % Plt Count 105 L (150-450) k/uL Macrocytosis Marked A PT 32.9 H (9.0-12.0) sec INR 3.4 H (<1.2) Sodium 134 L (137-145) mmol/L BUN 58 H (9-20) mg/dL Creatinine 3.01 H (0.66-1.25) mg/dL Glucose 136 H (74-99) mg/dL Calcium 7.1 L (8.4-10.2) mg/dL Microbiology - Last 24 Hours (Table) 04/02/20 11:00 Blood Culture - Preliminary Blood No Growth after 120 hours 04/05/20 11:56 Blood Culture - Preliminary Blood No Growth after 24 hours Assessment and Plan Plan: Assessment: 1. Acute kidney injury secondary to ATN secondary to septic shock. Started on hemodialysis April 02 via R IJ catheter for severe volume overload and low urine output. Urine output 0-10 mL an hour. No evidence of urinary retention. No clear hydronephrosis noted on kidney ultrasound. 2. Hyperkalemia secondary to acute kidney injury. Improved postdialysis. 3. Septic shock maintained on Levophed, vasopressin. Low dose cosyntropin stimulation test was done earlier this admission and a cortisol level did rise post stimulation; however he was started on Cortef due to persistent hypotension. Now on stress dose steroids. 4. Volume overload. 5. Acute hypercapnic respiratory failure. 6. Penile erosion. Urology following. 7. Hypervolemic hyponatremia. Plan: Maintain Lasix 80 mg IV twice daily. Currently seen while undergoing SLED - continue with daily SLED while he is on vasopressors. Wean vasopressors and FiO2. Continue to monitor renal function and urine output.
--- NOTE | 2020-04-07 14:35 | P.PN ---
Subjective Progress Note Date: 04/07/20 Te Brady is a 74-year-old male patient who presented to the ER from rehab with complaints of increased O fungal rash in the groin eroding foreskin secondary to catheter. Patient also had acute kidney injury and elevated INR. Patient's past medical history of atrial fibrillation which she is maintained on Coumadin, heart failure, COPD, dementia, hypertension, myocardial infarction, osteoarthritis with sleep apnea in which he uses home CPAP machine, pacemaker, anxiety and heart valve replacement. Patient's creatinine upon admission 3.07 and bun 77 potassium also elevated at 56. INR greater than 10. UA positive for the same Estrace. Chest x-ray completed showing T over the left lower lung r egion correlate for atelectasis or pneumonia. At this time patient has been started on Rocephin and Levaquin for IV antibiotics. Urology services have been consulted. Nephrology service is consulted for acute kidney injury. Potassium lowering cocktail given per nephrology. Dr. zavala and has been consulted for pulmonary due to possible pneumonia. Wound and blood cultures ordered. at this time patient denies chest pain or shortness of breath. Patient denies nausea vomiting or diarrhea. On 03/19/2020 patient was seen and examined on the medical floor he is alert and oriented 3 in no apparent distress, he is complaining of diarrhea with stool incontinence, otherwise he denies any complaints there is no fever or chills no headache or dizziness, no chest pain no shortness of breath no cough no nausea or vomiting no abdominal pain no blood in the stools no burning with urination no frequency or urgency and no hematuria 03/20/2020 patient was seen and examined on the medical floor he is alert and oriented 3 in no apparent distress there is no fever or chills no headache or d izziness no chest pain no shortness of breath no cough no nausea or vomiting no abdominal pain no diarrhea no blood in the stools no burning with urination no frequency or urgency and no hematuria. Clinton catheter has been removed and patient is able to urinate. INR is still elevated patient will be getting vitamin K 2.5 mg by mouth 1 time today on 03/21/2020 patient is alert and oriented 3currently sitting up in chair. INR today 3.5. patient maintained on meropenem and vancomycin for IV an tibiotics. At that time Clinton catheter has been removed to patient voiding independently will follow-up outpatient with urology for possible cystoscopy. At this time patient denies chest pain or shortness of breath. Patient denies nausea vomiting or diarrhea. Patient denies any urinary burning or frequency On 03/22/2020 patient was seen and examined on the medical floor he is alert and oriented 3 in no distress, he had the midline placed today and antibiotic were resumed, white blood count is elevated at 13.5, there is no fever or chills no headache or dizziness no chest pain no shortness of breath no cough no nausea or vomiting no abdominal pain no diarrhea and no urinary symptoms. On 03/23/2020 patient was seen and examined on the medical floor he is alert and oriented 3 in no apparent distress there is no fever or chills no headache or dizziness no chest pain no shortness of breath no cough no nausea or vomiting no abdominal pain no diarrhea and no urinary symptoms white blood count remains elevated, patient was resumed on IV antibiotic via midline will continue to monitor during this weekend. On 03/24/2020 patient was seen and examined on the medical floor he is alert and oriented in no apparent distress he is sitting up in chair he denies any complaints at this time there is no fever or chills no headache or dizziness no chest pain no shortness of breath no palpitation no cough no nausea or vomiting no abdominal pain no diarrhea no blood in the stools no burning with urination no frequency or urgency and no hematuria. On 03/25/2020 patient was seen and examined on the medical floor he is alert and oriented in no distress he denies any symptoms at this time, he is sitting up in a chair eating his meal, there is no fever or chills no headache or dizziness no chest pain no shortness of breath no cough no nausea or vomiting no abdominal pain no diarrhea no blood in the stools no burning with urination no frequency or urgency and no hematuria. Infectious disease recommendation reviewed patient has a midline he will need to go to the long-term on IV antibiotic. on 03/26/2020 patient was seen and examined on the medical floor he is alert and oriented 3 in no distress he is complaining of generalized weakness otherwise no specific complaints there is no fever or chills no headache or dizziness no chest pain no shortness of breath no cough no nausea or vomiting no abdominal pain no diarrhea and no urinary symptoms, he remains on IV antibiotic white blood count is still elevated . Patient has a midline in the right arm, he will need to continue IV antibiotic at the long-term, he is urinating well without Clinton catheter. On 03/27/2020 patient was seen and examined on the medical floor he is alert and oriented 3 in no distress there is no fever or chills no headache or dizziness no chest pain no shortness of breath no cough no nausea or vomiting no abdominal pain no diarrhea no blood in the stools no burning with urination no frequency or urgency and no hematuria is still complaining of generalized weakness On 03/28/2020 patient is alert and oriented 3. Discussed case with Dr. Walt Aviles and continue daptomycin recommending keeping patient 24 more hours to watch kidney function. Likely discharge to [facility] tomorrow. Patient denies chest pain or shortness of breath. Patient denies nausea vomiting or diarrhea. Patient denies any urinary burning or frequency. Did discuss case also with nephrology services recommending lasix twice a day upon discharge On 03/29/2020 patient was seen and examined on the medical floor he is alert and oriented 3 in no apparent distress there is no fever or chills no headache or dizziness no chest pain no shortness of breath no cough no nausea or vomiting no abdominal pain no diarrhea no blood in the stools no burning with urination no frequency or urgency and no hematuria. Kidney function is slightly worse today. At this time patient is stable, awaiting clearance from infectious disease and nephrology, and the recommendation for discharge antibiotics On 03/30/2020 patient had low temp all-night. Rectal temps were obtained and patient was placed on bear hugger. Patient is alert and oriented. At this time critical care services have been consulted. Chest x-ray urine culture and blood cultures ordered. Did discuss case with infectious disease updated outpatient physician. Blood pressure and heart rate have remained stable. Lactic acid was checked in stable at 1.0. Kidney function slightly worse today. Continue to monitor patient very closely critical care infectious disease and nephrology services are following. On 03/31/2020 patient was seen and examined on the medical floor he is alert and oriented 3 in no distress, he is still having episodes of hypothermia, there is no fever or chills no headache or dizziness no chest pain no shortness of breath no cough no nausea or vomiting no abdominal pain no diarrhea and no urinary symptoms. Medication and labs were reviewed, input from multiple consultants reviewed in details. On 04/01/2020 patient is alert and oriented 3. Creatinine increasing. Patient also having low pressures. Recommendations per nephrology to transfer patient to ICU and start Levophed. 2-D echo cardiology consult placed also to rule out cardiorenal syndrome. Discussed case with critical care team and nurse practitioner, updated on nephrology recommendation on ICU transfer and initiation of Levophed. At this time patient denies chest pain. Patient denies shortness breath. Patient denies nausea vomiting or diarrhea. Patient denies any urinary burning or frequency. Critical care, nephrology, infectious disease already following. Cardiology consult placed. On 04/02/2020 patient was seen and examined he continued to have episodes of hypothermia and hypotension he was reevaluated by critical care Dr. Gomez today at this time patient will be transferred to intensive care unit. Clinically patient is alert and oriented he denies any chest pain he has occasional shortness of breath no headache or dizziness no nausea vomiting or abdominal pain and no urinary symptoms. On 04/03/2020 patient was seen and examined in the ICU he is alert responsive maintained on BiPAP, patient is maintained on IV fluid and IV vasopressors, he is also maintained on IV antibiotics daptomycin and Diflucan and meropenem and Flagyl his condition has stabilized since yesterday. On 04/04/2020 patient was seen and examined in the ICU he is alert responsive in no apparent distress he is currently maintained on oxygen via nasal cannula and is tolerating well he is in hemodialysis at this time there is no fever or chills no headache or dizziness no chest pain no shortness of breath no cough no nausea or vomiting no abdominal pain no diarrhea no blood in the stools no burning with urination no frequency or urgency and no hematuria On 04/05/2020 patient was seen and examined in the ICU he is alert responsive in no apparent distress he is still maintained on vasopressors, his vital examination reveals a temperature of 97 pulse 60 respiration 16 blood pressure 126/62 his white blood count is 24.0 hemoglobin 10.0 platelet count 172 INR 2.7 sodium 136 potassium 5.4 BUN 71 creatinine 3.65 he is scheduled to have hemodialysis again today there is no fever or chills no headache or dizziness no chest pain no shortness of breath no cough no nausea or vomiting no abdominal pain no diarrhea and no urinary symptoms. On 04/06/2020 patient was seen and examined in the ICU he is alert and oriented 3 in no distress till maintained on vasopressor he is receiving hemodialysis again today clinically he is alert and oriented and denying any complaints there is no fever or chills no headache or dizziness no chest pain no shortness of breath no cough no nausea or vomiting no abdominal pain no diarrhea and no urinary symptoms. On 04/07/2020 patient was seen and examined in the ICU he is alert and oriented 3 he is still in critical condition he had episodes of hypothermia again he is maintained on vasopressors, nephrology are following and patient is receiving hemodialysis, patient is complaining of generalized weakness otherwise he denies any specific complaints there is no fever or chills no headache or dizziness no chest pain no shortness of breath no cough no nausea or vomiting no abdominal pain no diarrhea and no urinary symptoms. INR is 3.4 Will hold Coumadin today. White blood count is 17.6 hemoglobin 9.7 platelet count 105 BUN 58 creatinine 3.01, patient is maintained on hemodialysis Objective - Vital Signs Vital signs: Vital Signs Temp 92.4 F L 04/07/20 12:42 Pulse 60 04/07/20 13:00 Resp 16 04/07/20 13:00 BP 93/46 04/07/20 13:00 Pulse Ox 94 L 04/07/20 13:00 Intake & Output 04/06/20 04/07/20 04/07/20 18:59 06:59 18:59 Intake Total 442.330 953.348 278.827 Output Total 2510 25 2500 Balance -2067.670 928.348 -2221.173 Weight 175.5 kg Intake: IV 240 370 161 Meropenem 1 gm In Sodium 100 Chloride 0.9% 100 ml @ 33 .3 mls/hr IVPB Q12HR PAU Rx#:[id number] Sodium Chloride 0.9% 1, 240 240 140 000 ml @ 20 mls/hr IV . Q24H PAU Rx#:[id number] pressure bag 30 21 Intake, IV Titration 202.330 383.348 117.827 Amount Norepinephrine 32 mg In 201.911 382.645 117.355 Sodium Chloride 0.9% 218 ml @ 0.05 MCG/KG/MIN 2. 883 mls/hr IV .Q24H PAU Rx#:[id number] Sodium Chloride 0.9% 50 0.419 0.703 0.472 ml @ Titrate IVPB .Q0M PAU with Vasopressin 20 unit Rx#:[id number] Oral 200 Output: Urine 10 25 Hemodialysis 2500 2500 Other: Voiding Method Indwelling Catheter Indwelling Catheter Indwelling Catheter ABP, PAP, CO, CI - Last Documented Arterial Blood Pressure 100/43 - Exam Head normocephalic and atraumatic Neck supple no JVD no goiter Lungs clear to auscultation bilaterally no wheezing or crackles Heart irregular rate. known atrial fibrillation Abdomen is soft nontender nondistended positive bowel sounds no hepatosplenomegaly Extremities no edema no cyanosis or clubbing Neuro alert and orientated to 2. Dementia Drainage noted to penile area around catheter. Erosion to groin area. - Labs CBC & Chem 7: 04/07/20 03:50 04/07/20 03:50 Labs: Abnormal Lab Results - Last 24 Hours (Table) 04/07/20 04/07/20 04/07/20 Range/Units 03:50 03:50 05:45 WBC 17.6 H (3.8-10.6) k/uL RBC 3.03 L (4.30-5.90) m/uL Hgb 9.7 L (13.0-17.5) gm/dL Hct 32.5 L (39.0-53.0) % MCV 107.0 H (80.0-100.0) fL MCHC 29.9 L (31.0-37.0) g/dL RDW 19.0 H (11.5-15.5) % Plt Count 105 L (150-450) k/uL Macrocytosis Marked A PT 32.9 H (9.0-12.0) sec INR 3.4 H (<1.2) Sodium 134 L (137-145) mmol/L BUN 58 H (9-20) mg/dL Creatinine 3.01 H (0.66-1.25) mg/dL Glucose 136 H (74-99) mg/dL Calcium 7.1 L (8.4-10.2) mg/dL Microbiology - Last 24 Hours (Table) 04/05/20 11:56 Blood Culture - Preliminary Blood No Growth after 48 hours 04/02/20 11:00 Blood Culture - Preliminary Blood No Growth after 120 hours Assessment and Plan Assessment: 1. Infection around catheter site with penile erosion. wound culture showing MRSA Enterobacter cloacae. 2. MRSA bacteremia repeat blood cultures ordered, 3. Gram-negative urinary tract infection related to ESBL Proteus mirabilis. 4. Acute kidney injury with elevated potassium. Creatinine elevated at 3.06 upon admission. Continue normal saline at 50. Nephrology services are following 5. Supratherapeutic INR. Hold Coumadin and recheck. patient did receive vitamin K. Current INR 3.5 6. Possible pneumonia. Patient started on Levaquin and Rocephin. Pulmonary service is consulted 7. History of insulin-dependent diabetes mellitus 8. History of essential hypertension 9. History of hyperlipidemia. Maintained on statin 10. History of stroke with suppressive aphasia 11. History of morbid obesity 12. History of urinary retention and difficulty with Clinton insertion. per urol ogavis servicesFoley catheter has been removed patient advised follow-up in one month with urology services for cystoscopy 13. Dementia. Maintained on Aricept and Namenda 14. Diarrhea will check stools for C. diff. 15. Nurse reporting that patient is making statements about being depressed, his is also concerned in that regard, at this time will restart patient on Wellbutrin SR 150 mg by mouth once daily 16. Sepsis with hypothermia and hypotension , currently he is in ICU maintained on BiPAP, IV fluids and IV antibiotics he is improving gradually DVT prophylaxis SCDs due to subtherapeutic INR. GI prophylaxis Protonix Infectious disease, nephrology and critical care service is consulted patient remains on daptomycin and Flagyl repeat blood cultures and urine and chest x-ray ordered continue Shahnaz ofeliagger for low temp Nephrology services recommend transfer to intensive care unit and initiation of Levophed for blood pressure support, this was discussed with the critical care team. Per critical care team will evaluate patient. 2-D echo and cardiology consult placed
--- NOTE | 2020-04-07 15:26 | P.PN ---
Subjective Progress Note Date: 04/07/20 Sepsis secondary to penile erosion with secondary cellulitis On 04/02/2020, the patient got transferred to the intensive care unit. Earlier this morning, the patient was found to be hypothermic, hypotensive and the patient also having diminished level of consciousness. I saw the patient and I noted that the patient is also developed an acute kidney injury in the creatinine has been on a gradual rise over the past few days is currently up to 4.52. An immediate blood gases was done and the patient was found to have severe asked her acidosis. PH was at 7. 06 with a pCO2 of 77 acute of 161. At that point, the patient was placed on a BiPAP and BiPAP pressures were at 14/6 cm of water and FiO2 is being titrated to maintain a saturation above 90%. Subsequent blood gases showed some limited improvement with a pH of 7.09 and a pCO2 of 72 and pO2 of 99. The patient has significant diminished level of consciousness. He looks quite lethargic and obtunded. I contacted the . We radiatio for the need for intubation mechanical ventilation. The wanted to come to the hospital discussed this matter further. As such the patient is currently on a BiPAP for respiratory support. The patient was given a liter of IV fluids on the floor with normal saline and currently the patient is receiving IV fluids at the rate of 75 mL an hour. The patient was also started on norepinephrine infusion for blood pressure support. Antibiotic modification was done and the patient was started on IV Merrem in combination to Flagyl and daptomycin. His cardiac rhythm is sinus and the patient is having frequent PACs. INR therapeutic for now as the patient is on long-term articulation with warfarin. Note that the patient had a penile ulcer/infection with secondary cellulitis. The cultures were obtained earlier showed MRSA and Enterobacter and MRSA was also cultured and the blood on 03/17/2020. In addition to that the patient positive cultures for Proteus mirabilis in the urine from 03/17/2020. Anaerobes are also cultured from the penile wound. Most recent temperature is 94.4. Nephrology is on the case regarding acute kidney injury and the patient is oliguric and the patient is being considered for hemodialysis at this point in time. He is morbidly obese and he carries a BMI 53. On 04/03/2020 the patient is being seen for a follow-up. The patient is improved considerably compared to yesterday. Note that the patient came in to the ICU with septic shock. The patient was altered mentally and the patient was also having severe hypotension and he was hypothermic. Overnight, the patient was suspected IV fluids. The patient was also given pressors and the patient was on high-dose norepinephrine infusion running at 60 mg per minute and vasopressin at 0.03 units an hour. The patient was also supported with BiPAP throughout the night. He underwent dialysis also. This morning, there is marked improvement in the patient's overall mentation. His much more awake and alert. Repeat blood gases was done on the patient was on 10 L of oxygen by nasal cannula and the patient had a pH of 7.12 with a pCO2 55 and pO2 1:30. Note that during hemodialysis, the patient had a 1 L of ultrafiltration also. He is on a broad-spectrum antibiotics. Currently on a combination of meropenem, daptomycin, Flagyl and Diflucan. Hemodialysis to follow today. He is much more awake and alert. He is tolerating diet. The white cell count is up to 21.8 with a hemoglobin of 10.1. Based on the electrolytes, the patient's potassium level of 5.7. BUN is 85 with a creatinine of 3.97. The UA was abnormal and urine culture and blood cultures still pending for now. Furthermore during the day, the patient has been weaned down to 4 L of oxygen by nasal cannula. His current pulse ox 97%. His chest x-ray is showing mild bibasilar pulmonary infiltrates which is improved compared to yesterday and the patient has some mild cardiomegaly. On 04/04/2020, the patient again doing poorly. He remains in septic shock requiring high doses of pressors. The patient is also more lethargic and somnolent compared to yesterday. He is currently in 40s of oxygen by nasal cannula with pulse ox of 99%. He is profoundly hypotensive and the patient is still requiring high dose of Levothroid which is running at 90 g per minute and the patient is also on vasopressin at 0.04 units an hour and the patient on normal saline at 20 an hour. The patient remains on stress dose hydrocortisone. Antibiotic coverage essentially the same and the patient remains on a combination of daptomycin, meropenem, Flagyl and Diflucan. Repeat cultures of been all negative. Temperature has improved and the patient is not as hypothermic as he was yesterday. On his blood work, the patient continues to have a component of respiratory acidosis. The blood gas showed pH of 7.11 with a pCO2 of 69 and pO2 of 109. Not much different compared to yesterday's ABGs. He is not requiring BiPAP however. His BUN is at 81 with a creatinine of 4.02. His serum potassium is at 6. His serum bicarbonate 23. LFTs are slightly elevated with an AST of 141, ALT of 66, and alkaline phosphatase of 136. The patient is to undergo another session of hemodialysis today. This will be a slow low efficiency dialysis as the patient is quite hemodynamically stable. On 04/05/2020, the patient is being seen for a follow-up. He is awake. Unfortunately, the patient remains hemodynamically unstable requiring high doses of pressors. The patient is currently on a combination of vasopressin 0.04 units an hour and the patient also on norepinephrine infusion 75 g per minute. IV fluids are at KVO. The patient is to undergo another session of dialysis and the patient is showing improvement in the volume status and third spacing by daily hemodialysis. In terms of his respiratory status, the patient is on 4 L of oxygen by nasal cannula with a pulse ox of 96%. he is not hypothermic. He is not febrile. He does not have any significant altered mentation. He is awake and alert and following commands and answering questions appropriately. No nausea. No vomiting. No diarrhea. He is on broad-spectrum antibiotics and there is no clear source of infection at this point in time specially in the repeat cultures came back negative. I repeated a limited echocardiogram in the patient's LV function was again within normal limits. As such, the exact cause for his hypotension is not clear to me at this point in time although I strongly suspected is a septic shock. The broad-spectrum antibiotics including combi [place] of daptomycin, meropenem, Flagyl and Diflucan. Repeat cultures will be obtained. Meanwhile, the patient would undergo another session of hemodialysis. He has a left IJ temporary dialysis catheter in the right IJ triple-lumen catheter and exit sites are essentially clean and intact. The blood gases showing a component of respiratory acidosis and the patient's speech is at 7.17 with a pCO2 of 76 and pO2 of 85 and this was on FiO2 of 3 6% which is 40s about 2 by nasal cannula. White cell count is at 24. Hemoglobin is at 10.0. Urine output is quite diminished in the order of 5-10 mL an hour. 04/06/2020, the patient continues to be awake. Unfortunately, he continues to be in a shock state requiring high doses of pressors. No new culture results of the cultures of been all negative. Noted repeat cultures were sent yesterday as there was suspicion for ongoing anemia based on his underlying profound hypotension. This morning, the patient is running on norepinephrine infusion at 0.3 mg/kg per minute. Vasopressin is running at 0.04 units an hour. He is undergoing dialysis. Is tolerating dialysis well without any significant hypotension. Fluid balance is -1.6 L over the past 24 hours and there is ongoing improvement in his third spacing. Antibiotic coverage including combination of daptomycin and meropenem and Diflucan. The patient is afebrile. The patient is not having any altered mentation. Or encephalopathy. The patient is tolerating his diet. As reported, there is improvement in the third spacing. Urine output remains low in the order of 10 mL an hour. His white cell count shows improvement in his white cell count which is down to 19. BUN is at 68 with a creatinine of 3.26. His INR is currently at 2.7 with a PT of 26.7. On 04/07/2020, the patient is undergoing another session of hemodialysis. Doing well. They active issue for notices pressor dependence and the patient is still on levo fed running at 0.37 g per KG per minute. The patient remains on vasopressin 0.04 units an hour. IV antibiotics remains Merrem, daptomycin, Flagyl and Diflucan. He is afebrile. Repeat blood cultures are negative. Pressor requirements have improved compared to yesterday. Nevertheless, it has not been completely weaned off and discontinued. The patient is doing well. The patient is awake and alert. He is following commands and answering quest ions. He has no specific complaints. He underwent daily hemodialysis. He is third spacing and edema is also improving. He is on midodrine. He is also status post hydrocortisone at a dose of 100 mg IV every 8 hours. No other significant events overnight. His INR today is at 3.4 on oxygen monitoring the PT/INR. Hemoglobin is stable at 9.7 the white cell count is down to 17.6. Objective - Vital Signs Vital signs: Vital Signs Temp 92.4 F L 04/07/20 12:42 Pulse 60 04/07/20 14:00 Resp 32 H 04/07/20 14:00 BP 95/43 04/07/20 14:00 Pulse Ox 94 L 04/07/20 13:00 Intake & Output 04/06/20 04/07/20 04/07/20 18:59 06:59 18:59 Intake Total 442.330 953.348 301.827 Output Total 2510 25 2500 Balance -2067.670 928.348 -2198.173 Weight 175.5 kg Intake: IV 240 370 184 Meropenem 1 gm In Sodium 100 Chloride 0.9% 100 ml @ 33 .3 mls/hr IVPB Q12HR PAU Rx#:[id number] Sodium Chloride 0.9% 1, 240 240 160 000 ml @ 20 mls/hr IV . Q24H PAU Rx#:[id number] pressure bag 30 24 Intake, IV Titration 202.330 383.348 117.827 Amount Norepinephrine 32 mg In 201.911 382.645 117.355 Sodium Chloride 0.9% 218 ml @ 0.05 MCG/KG/MIN 2. 883 mls/hr IV .Q24H PAU Rx#:[id number] Sodium Chloride 0.9% 50 0.419 0.703 0.472 ml @ Titrate IVPB .Q0M PAU with Vasopressin 20 unit Rx#:[id number] Oral 200 Output: Urine 10 25 Hemodialysis 2500 2500 Other: Voiding Method Indwelling Catheter Indwelling Catheter Indwelling Catheter ABP, PAP, CO, CI - Last Documented Arterial Blood Pressure 106/43 - Exam GENERAL EXAM: the patient is awake and alert and much less somnolent 74-year-old white male, awake and alert and comfortable on 4 L of oxygen by nasal cannula. HEAD: Normocephalic/atraumatic. EYES: Normal reaction of pupils, equal size. Conjunctiva pink, sclera white. NOSE: Clear with pink turbinates. THROAT: No erythema or exudates. NECK: No masses, no JVD, no thyroid enlargement, no adenopathy. CHEST: No chest wall deformity. Symmetrical expansion. LUNGS: Equal air entry with bibasilar crackles. The patient is currently on BiPAP for respiratory support. CVS: Regular rate and rhythm, normal S1 and S2, no gallops, no murmurs, no rubs ABDOMEN: Soft, nontender. No hepatosplenomegaly, normal bowel sounds, no guarding or rigidity. The patient has a large anterior abdominal wound from previous abdominal surgeries. EXTREMITIES: No clubbing, there is edema bilaterally and the patient has chronic wounds and ulcerations in addition to that there is diminished pulses in all 4 extremities. The penile also seems to be improving and there is no purulent drainage at this point in time and the patient has no scrotal cellulitis. There is evidence of scrotal edema. Note that there is improvement in the swelling in lower extremities bilaterally. The lower extremity is wrapped at this point in time. Distal scrotal edema. No purulent discharge from the penile ulcer. MUSCULOSKELETAL: Muscle tone is markedly diminished in all 4 extremities. SPINE: No scoliosis or deformity SKIN: Bilateral abdominal ulcerations, and maceration with excoriation, left medial calcaneal ulceration CENTRAL NERVOUS SYSTEM:. The patient is awake and alert and following commands. patient is moving all 4 extremities without any limitation. He has diminished strength in all 4 extremities and there is global weakness. - Labs CBC & Chem 7: 04/07/20 03:50 04/07/20 03:50 Labs: Abnormal Lab Results - Last 24 Hours (Table) 04/07/20 04/07/20 04/07/20 Range/Units 03:50 03:50 05:45 WBC 17.6 H (3.8-10.6) k/uL RBC 3.03 L (4.30-5.90) m/uL Hgb 9.7 L (13.0-17.5) gm/dL Hct 32.5 L (39.0-53.0) % MCV 107.0 H (80.0-100.0) fL MCHC 29.9 L (31.0-37.0) g/dL RDW 19.0 H (11.5-15.5) % Plt Count 105 L (150-450) k/uL Macrocytosis Marked A PT 32.9 H (9.0-12.0) sec INR 3.4 H (<1.2) Sodium 134 L (137-145) mmol/L BUN 58 H (9-20) mg/dL Creatinine 3.01 H (0.66-1.25) mg/dL Glucose 136 H (74-99) mg/dL Calcium 7.1 L (8.4-10.2) mg/dL Microbiology - Last 24 Hours (Table) 04/05/20 11:56 Blood Culture - Preliminary Blood No Growth after 48 hours 04/02/20 11:00 Blood Culture - Preliminary Blood No Growth after 120 hours Assessment and Plan Plan: 1 Septic shock. The patient is came in to the ICU hypotensive and hypothermic and his septic shock. Despite being on adequate antibiotic coverage, the patient continues to be requiring high doses of pressors and the patient is on high-dose norepinephrine infusion and vasopressin physiologic dose. The patient is also on stress dose hydrocortisone. A limited echocardiac Star was repeated and the patient was found to have a reserved LV function. No evidence of any pericardial effusion. The pressor requirements have improved over the past 24 hours and the patient is running on the lower pressors. I'm hoping that this will be further weaned off and discontinued over the next 24-48 hours. Continue midodrine for now. Continue physiologic dose of vasopressin. Continue stress dose hydrocortisone. Repeat cultures are all negative. 2 acute hypoxic/hypercapnic respiratory failure. The patient continues to be on oxygen at 4 L per minute nasal cannula. 3 Penile erosion secondary to catheter with suspected infection with secondary cellulitis, Wound cultures showed MRSA, Enterobacter cloacae in addition to anaerobes. The patient also staphylococcal septicemia 4 staph septicemia with MRSA 5 UTI secondary to ESBL Proteus mirabilis 6 acute kidney injury with secondary hypotension and sepsis and the patient has developed worsening in renal function with oligoria, currently the patient is undergoing hemodialysis ultrafiltration on a daily basis with improvement in the third spacing in the volume status. Another session of dialysis with ultrafiltration will be done today. 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 14 history of pacemaker insertion for symptomatically bradycardia 15 COPD currently on room air oxygen with a pulse ox of 94% 16. chronic anemia 17. hyperlipidemia 18. history of previous CVA with expressive aphasia 19 BPH 20 chronic anemia, multifactorial, 21 hypothermia, improved 22 acute leukocytosis, white cell count remains elevated, improving white cell count is on the decline Plan Keep the patient intensive care unit. Broad-spectrum antibiotic coverage and add IV Merrem in addition to daptomycin and Flagyl, noted the patient is also on Diflucan. The repeat blood cultures of been negative. A limited echocardiogram was done yesterday and the patient has a reserved LV function without pericardial effusion. Continue pressors for hemodynamic support, and hoping to wean off the norepin ephrine infusion gradually Continue stress dose hydrocortisone 100 mg every 8 hours of the patient's baseline serum cortisol level was low Hemodialysis with ultrafiltration today Continue anticoagulation profile Active issue for now remains the patient's ongoing hypotension pressor requirements. The dose of norepinephrine infusion is improved compared to yesterday. No significant cardiac arrhythmias at this point in time. Overall conditions remain unchanged over the past 24 hours. The patient is still being seen by various consultants including infectious disease and nephrology. He does have had an aortic valve replacement. No evidence of endocarditis. No evidence of any endovascular infection. He may have an underlying poor vascular tone for sepsis and he will be gradually weaned off the pressors. Condition is critical at this point in time.
[2020-04-07] MEDS ORDERED: WARFARIN 1 MG TAB PO ONE (18:00)
[2020-04-07] MEDS: TAMSULOSIN 0.4 MG CAP.ER.24H PO SCH (21:12)
[2020-04-07] MEDS: DONEPEZIL 10 MG TAB PO SCH (21:12)
[2020-04-07] MEDS: SODIUM CHLORIDE 0.9% 1,000 ML IV SCH (21:19)
--- NOTE | 2020-04-07 22:45 | PN ---
PROGRESS NOTE DATE OF SERVICE: 04/07/20. REASON FOR FOLLOW UP: 1. MRSA bacteremia. 2. Sepsis. 3. Possible pneumonia. INTERVAL HISTORY: Patient is currently afebrile. Patient is hemodynamically stable requiring less pressor support. He is more awake. Denies having chest pain. Minimal cough. No abdominal pain or diarrhea. PHYSICAL EXAMINATION: Blood pressure 104/38 with a pulse of 73, temperature 97.6. He is 95% on 5 L nasal cannula. General description is an elderly male lying in bed in no distress. Respiratory system: Unlabored breathing, clear to auscultation anteriorly. HEART: S1, S2. Regular rate and rhythm. ABDOMEN: Soft, nondistended. No guarding or rigidity. Extremities with diffuse swelling. No drainage. LABS: Hemoglobin 9.7, white count 17.6, BUN of 58, creatinine 3.01. Blood culture has been negative. DIAGNOSTIC IMPRESSION AND PLAN: Patient with MRSA bacteremia, source likely skin and soft tissue in this patient whose followup blood culture has been negative. Subsequently did have worsening of renal failure and possible pneumonia. Currently, in the ICU and is covered with daptomycin and meropenem; to continue. Monitor clinical course closely. Continue supportive care. MMODL / IJN: [id number] /
[2020-04-08] MEDS: HYDROCORTISONE SUCCINATE 100 MG/2 ML VIAL IV SCH ×3 (00:25→16:43)
[2020-04-08] MEDS: NOREPINEPHRINE 32 MG in SODIUM CHLORIDE 0.9% 218 ML IV SCH ×2 (01:39→16:46)
[2020-04-08 04:00] LABS: INR 3.5 (<1.2); Prothrombin Time 34.5 sec (9.0-12.0)
[2020-04-08 04:12] LABS: Anisocytosis Slight; HCT 32.7 % (39.0-53.0); Hypochromasia Marked; MCH 32.7 pg (25.0-35.0); MCHC 30.7 g/dL (31.0-37.0); MCV 106.3 fL (80.0-100.0); Macrocytosis Marked; Poikilocytosis Marked; RBC 3.07 m/uL (4.30-5.90); RDW 18.9 % (11.5-15.5)
[2020-04-08 04:16] LABS: Albumin 2.6 g/dL (3.5-5.0); Calcium 7.6 mg/dL (8.4-10.2); Total Bilirubin 1.9 mg/dL (0.2-1.3); Total Protein 5.7 g/dL (6.3-8.2)
[2020-04-08 04:26] LABS: Potassium 4.2 mmol/L (3.5-5.1)
[2020-04-08 04:34] LABS: ABG Base Excess 0.7 mmol/L; ABG HCO3 27 mmol/L (21-25); ABG Oxygen Saturation 94.3 % (94-97); ABG PCO2 56 mmHg (35-45); ABG PH 7.29 (7.35-7.45); ABG PO2 73 mmHg (83-108); ABG TCO2 29 mmol/L (19-24); Allen Test Performed? Yes
[2020-04-08] MEDS: SODIUM CHLORIDE 0.9% 50 ML with VASOPRESSIN 20 UNIT IVPB SCH ×6 (04:45→23:54)
[2020-04-08 04:57] LABS: Band Neutrophils % 1 %; Eosinophils # (M) 0.75 k/uL (0-0.7); Metamyelocytes # (M) 0.15 k/uL (0); Metamyelocytes % 1 %; Monocytes # (M) 1.05 k/uL (0-1.0); Neutrophils % (M) 84 %; Nucleated Red Blood Cells 30 /100 WBC (0-0); Total Cells Counted 200
[2020-04-08 04:58] LABS: Polychromasia Present
[2020-04-08 04:59] LABS: Platelet Count 99 k/uL (150-450)
[2020-04-08 05:48] LABS: Glucose,Whole Blood 117 mg/dL (75-99)
[2020-04-08] MEDS: FERROUS SULFATE 325 MG TAB PO SCH (06:24)
[2020-04-08] MEDS: CHOLECALCIFEROL 1,000 UNIT TAB PO SCH (06:24)
[2020-04-08] MEDS: PANTOPRAZOLE 40 MG TABLET PO SCH (06:24)
[2020-04-08] MEDS: MAGNESIUM OXIDE 400 MG TAB PO SCH (06:24)
[2020-04-08] MEDS: SYMBICORT 160-4.5 MCG INHALER INHALATION SCH ×2 (08:44→19:19)
[2020-04-08] MEDS: ALBUTEROL HFA INHALER INHALATION PRN ×3 (08:44→19:20)
[2020-04-08] MEDS: buPROPion SR 150 MG TABLET.ER PO SCH ×2 (08:59→12:15)
[2020-04-08] MEDS: MEMANTINE 5 MG TAB PO SCH ×3 (08:59→20:16)
[2020-04-08] MEDS: MIDODRINE 5 MG TAB PO SCH ×2 (08:59→15:26)
[2020-04-08] MEDS: FLUCONAZOLE 100 MG TAB PO SCH ×2 (08:59→12:15)
[2020-04-08] MEDS: MEROPENEM 1 GM in SODIUM CHLORIDE 0.9% 100 ML IVPB SCH ×2 (09:00→23:54)
--- NOTE | 2020-04-08 10:05 | P.PN ---
Subjective Progress Note Date: 04/08/20 Te Brady is a 74-year-old male patient who presented to the ER from rehab with complaints of increased O fungal rash in the groin eroding foreskin secondary to catheter. Patient also had acute kidney injury and elevated INR. Patient's past medical history of atrial fibrillation which she is maintained on Coumadin, heart failure, COPD, dementia, hypertension, myocardial infarction, osteoarthritis with sleep apnea in which he uses home CPAP machine, pacemaker, anxiety and heart valve replacement. Patient's creatinine upon admission 3.07 and bun 77 potassium also elevated at 56. INR greater than 10. UA positive for the same Estrace. Chest x-ray completed showing T over the left lower lung r egion correlate for atelectasis or pneumonia. At this time patient has been started on Rocephin and Levaquin for IV antibiotics. Urology services have been consulted. Nephrology service is consulted for acute kidney injury. Potassium lowering cocktail given per nephrology. Dr. zavala and has been consulted for pulmonary due to possible pneumonia. Wound and blood cultures ordered. at this time patient denies chest pain or shortness of breath. Patient denies nausea vomiting or diarrhea. On 03/19/2020 patient was seen and examined on the medical floor he is alert and oriented 3 in no apparent distress, he is complaining of diarrhea with stool incontinence, otherwise he denies any complaints there is no fever or chills no headache or dizziness, no chest pain no shortness of breath no cough no nausea or vomiting no abdominal pain no blood in the stools no burning with urination no frequency or urgency and no hematuria 03/20/2020 patient was seen and examined on the medical floor he is alert and oriented 3 in no apparent distress there is no fever or chills no headache or d izziness no chest pain no shortness of breath no cough no nausea or vomiting no abdominal pain no diarrhea no blood in the stools no burning with urination no frequency or urgency and no hematuria. Clinton catheter has been removed and patient is able to urinate. INR is still elevated patient will be getting vitamin K 2.5 mg by mouth 1 time today on 03/21/2020 patient is alert and oriented 3currently sitting up in chair. INR today 3.5. patient maintained on meropenem and vancomycin for IV an tibiotics. At that time Clinton catheter has been removed to patient voiding independently will follow-up outpatient with urology for possible cystoscopy. At this time patient denies chest pain or shortness of breath. Patient denies nausea vomiting or diarrhea. Patient denies any urinary burning or frequency On 03/22/2020 patient was seen and examined on the medical floor he is alert and oriented 3 in no distress, he had the midline placed today and antibiotic were resumed, white blood count is elevated at 13.5, there is no fever or chills no headache or dizziness no chest pain no shortness of breath no cough no nausea or vomiting no abdominal pain no diarrhea and no urinary symptoms. On 03/23/2020 patient was seen and examined on the medical floor he is alert and oriented 3 in no apparent distress there is no fever or chills no headache or dizziness no chest pain no shortness of breath no cough no nausea or vomiting no abdominal pain no diarrhea and no urinary symptoms white blood count remains elevated, patient was resumed on IV antibiotic via midline will continue to monitor during this weekend. On 03/24/2020 patient was seen and examined on the medical floor he is alert and oriented in no apparent distress he is sitting up in chair he denies any complaints at this time there is no fever or chills no headache or dizziness no chest pain no shortness of breath no palpitation no cough no nausea or vomiting no abdominal pain no diarrhea no blood in the stools no burning with urination no frequency or urgency and no hematuria. On 03/25/2020 patient was seen and examined on the medical floor he is alert and oriented in no distress he denies any symptoms at this time, he is sitting up in a chair eating his meal, there is no fever or chills no headache or dizziness no chest pain no shortness of breath no cough no nausea or vomiting no abdominal pain no diarrhea no blood in the stools no burning with urination no frequency or urgency and no hematuria. Infectious disease recommendation reviewed patient has a midline he will need to go to the half-way on IV antibiotic. on 03/26/2020 patient was seen and examined on the medical floor he is alert and oriented 3 in no distress he is complaining of generalized weakness otherwise no specific complaints there is no fever or chills no headache or dizziness no chest pain no shortness of breath no cough no nausea or vomiting no abdominal pain no diarrhea and no urinary symptoms, he remains on IV antibiotic white blood count is still elevated . Patient has a midline in the right arm, he will need to continue IV antibiotic at the half-way, he is urinating well without Clinton catheter. On 03/27/2020 patient was seen and examined on the medical floor he is alert and oriented 3 in no distress there is no fever or chills no headache or dizziness no chest pain no shortness of breath no cough no nausea or vomiting no abdominal pain no diarrhea no blood in the stools no burning with urination no frequency or urgency and no hematuria is still complaining of generalized weakness On 03/28/2020 patient is alert and oriented 3. Discussed case with Dr. Walt Aviles and continue daptomycin recommending keeping patient 24 more hours to watch kidney function. Likely discharge to [facility] tomorrow. Patient denies chest pain or shortness of breath. Patient denies nausea vomiting or diarrhea. Patient denies any urinary burning or frequency. Did discuss case also with nephrology services recommending lasix twice a day upon discharge On 03/29/2020 patient was seen and examined on the medical floor he is alert and oriented 3 in no apparent distress there is no fever or chills no headache or dizziness no chest pain no shortness of breath no cough no nausea or vomiting no abdominal pain no diarrhea no blood in the stools no burning with urination no frequency or urgency and no hematuria. Kidney function is slightly worse today. At this time patient is stable, awaiting clearance from infectious disease and nephrology, and the recommendation for discharge antibiotics On 03/30/2020 patient had low temp all-night. Rectal temps were obtained and patient was placed on bear hugger. Patient is alert and oriented. At this time critical care services have been consulted. Chest x-ray urine culture and blood cultures ordered. Did discuss case with infectious disease updated outpatient physician. Blood pressure and heart rate have remained stable. Lactic acid was checked in stable at 1.0. Kidney function slightly worse today. Continue to monitor patient very closely critical care infectious disease and nephrology services are following. On 03/31/2020 patient was seen and examined on the medical floor he is alert and oriented 3 in no distress, he is still having episodes of hypothermia, there is no fever or chills no headache or dizziness no chest pain no shortness of breath no cough no nausea or vomiting no abdominal pain no diarrhea and no urinary symptoms. Medication and labs were reviewed, input from multiple consultants reviewed in details. On 04/01/2020 patient is alert and oriented 3. Creatinine increasing. Patient also having low pressures. Recommendations per nephrology to transfer patient to ICU and start Levophed. 2-D echo cardiology consult placed also to rule out cardiorenal syndrome. Discussed case with critical care team and nurse practitioner, updated on nephrology recommendation on ICU transfer and initiation of Levophed. At this time patient denies chest pain. Patient denies shortness breath. Patient denies nausea vomiting or diarrhea. Patient denies any urinary burning or frequency. Critical care, nephrology, infectious disease already following. Cardiology consult placed. On 04/02/2020 patient was seen and examined he continued to have episodes of hypothermia and hypotension he was reevaluated by critical care Dr. Gomez today at this time patient will be transferred to intensive care unit. Clinically patient is alert and oriented he denies any chest pain he has occasional shortness of breath no headache or dizziness no nausea vomiting or abdominal pain and no urinary symptoms. On 04/03/2020 patient was seen and examined in the ICU he is alert responsive maintained on BiPAP, patient is maintained on IV fluid and IV vasopressors, he is also maintained on IV antibiotics daptomycin and Diflucan and meropenem and Flagyl his condition has stabilized since yesterday. On 04/04/2020 patient was seen and examined in the ICU he is alert responsive in no apparent distress he is currently maintained on oxygen via nasal cannula and is tolerating well he is in hemodialysis at this time there is no fever or chills no headache or dizziness no chest pain no shortness of breath no cough no nausea or vomiting no abdominal pain no diarrhea no blood in the stools no burning with urination no frequency or urgency and no hematuria On 04/05/2020 patient was seen and examined in the ICU he is alert responsive in no apparent distress he is still maintained on vasopressors, his vital examination reveals a temperature of 97 pulse 60 respiration 16 blood pressure 126/62 his white blood count is 24.0 hemoglobin 10.0 platelet count 172 INR 2.7 sodium 136 potassium 5.4 BUN 71 creatinine 3.65 he is scheduled to have hemodialysis again today there is no fever or chills no headache or dizziness no chest pain no shortness of breath no cough no nausea or vomiting no abdominal pain no diarrhea and no urinary symptoms. On 04/06/2020 patient was seen and examined in the ICU he is alert and oriented 3 in no distress till maintained on vasopressor he is receiving hemodialysis again today clinically he is alert and oriented and denying any complaints there is no fever or chills no headache or dizziness no chest pain no shortness of breath no cough no nausea or vomiting no abdominal pain no diarrhea and no urinary symptoms. On 04/07/2020 patient was seen and examined in the ICU he is alert and oriented 3 he is still in critical condition he had episodes of hypothermia again he is maintained on vasopressors, nephrology are following and patient is receiving hemodialysis, patient is complaining of generalized weakness otherwise he denies any specific complaints there is no fever or chills no headache or dizziness no chest pain no shortness of breath no cough no nausea or vomiting no abdominal pain no diarrhea and no urinary symptoms. INR is 3.4 Will hold Coumadin today. White blood count is 17.6 hemoglobin 9.7 platelet count 105 BUN 58 creatinine 3.01, patient is maintained on hemodialysis On 04/08/2020 patient remains in the intensive care unit. Patient remains on Levophed and vasopressin for pressure support. Nephrology infectious disease in critical care services are following. Creatinine 3.10 and bun 55. white Blood cell is trending down to 15.0. Patient denies any chest pain or shortness breath. Patient denies nausea vomiting or diarrhea. Patient denies any urinary burning or frequency. Patient maintained daptomycin and meropenem. Patient's temp low at 92.4 patient was placed on bear hugger temperature has improved Objective - Vital Signs Vital signs: Vital Signs Temp 97.8 F 04/08/20 08:00 Pulse 60 04/08/20 09:00 Resp 25 H 04/08/20 09:00 BP 89/38 04/08/20 09:00 Pulse Ox 94 L 04/08/20 09:00 Intake & Output 04/07/20 04/08/20 04/08/20 18:59 06:59 18:59 Intake Total 705.770 744.232 71.436 Output Total 2500 40 Balance -1794.230 704.232 71.436 Weight 177.3 kg Intake: IV 276 399 46 Meropenem 1 gm In Sodium 100 Chloride 0.9% 100 ml @ 33 .3 mls/hr IVPB Q12HR [facility] Rx#:[id number] Sodium Chloride 0.9% 1, 240 260 40 000 ml @ 20 mls/hr IV . Q24H PAU Rx#:[id number] pressure bag 36 39 6 Intake, IV Titration 179.770 345.232 25.436 Amount Norepinephrine 32 mg In 179.298 344.585 25.436 Sodium Chloride 0.9% 218 ml @ 0.05 MCG/KG/MIN 2. 883 mls/hr IV .Q24H PAU Rx#:[id number] Sodium Chloride 0.9% 50 0.472 0.647 ml @ Titrate IVPB .Q0M PAU with Vasopressin 20 unit Rx#:[id number] Oral 250 Output: Urine 40 Hemodialysis 2500 Other: Voiding Method Indwelling Catheter Indwelling Catheter Indwelling Catheter # Bowel Movements 1 ABP, PAP, CO, CI - Last Documented Arterial Blood Pressure 104/43 - Exam Head normocephalic and atraumatic Neck supple no JVD no goiter Lungs clear to auscultation bilaterally no wheezing or crackles Heart irregular rate. known atrial fibrillation Abdomen is soft nontender nondistended positive bowel sounds no hepatosplenomegaly Extremities no edema no cyanosis or clubbing Neuro alert and orientated to 2. Dementia Drainage noted to penile area around catheter. Erosion to groin area. - Labs CBC & Chem 7: 04/08/20 03:40 04/08/20 03:40 Labs: Abnormal Lab Results - Last 24 Hours (Table) 04/08/20 04/08/20 04/08/20 Range/Units 03:40 03:40 03:40 WBC 15.0 H (3.8-10.6) k/uL RBC 3.07 L (4.30-5.90) m/uL Hgb 10.0 L (13.0-17.5) gm/dL Hct 32.7 L (39.0-53.0) % MCV 106.3 H (80.0-100.0) fL MCHC 30.7 L (31.0-37.0) g/dL RDW 18.9 H (11.5-15.5) % Plt Count 99 L (150-450) k/uL Neutrophils # (Manual) 12.70 H (1.3-7.7) k/uL Lymphocytes # (Manual) 0.60 L (1.0-4.8) k/uL Monocytes # (Manual) 1.05 H (0-1.0) k/uL Eosinophils # (Manual) 0.75 H (0-0.7) k/uL Metamyelocytes # (Man) 0.15 H (0) k/uL Nucleated RBCs 30 H (0-0) /100 WBC Macrocytosis Marked A PT 34.5 H (9.0-12.0) sec INR 3.5 H (<1.2) ABG pH (7.35-7.45) ABG pCO2 (35-45) mmHg ABG pO2 (83-108) mmHg ABG HCO3 (21-25) mmol/L ABG Total CO2 (19-24) mmol/L BUN 55 H (9-20) mg/dL Creatinine 3.10 H (0.66-1.25) mg/dL Glucose 106 H (74-99) mg/dL POC Glucose (mg/dL) (75-99) mg/dL Calcium 7.6 L (8.4-10.2) mg/dL Total Bilirubin 1.9 H (0.2-1.3) mg/dL AST 233 H (17-59) U/L ALT 166 H (4-49) U/L Alkaline Phosphatase 180 H (38-126) U/L Total Protein 5.7 L (6.3-8.2) g/dL Albumin 2.6 L (3.5-5.0) g/dL 04/08/20 04/08/20 Range/Units 04:30 05:46 WBC (3.8-10.6) k/uL RBC (4.30-5.90) m/uL Hgb (13.0-17.5) gm/dL Hct (39.0-53.0) % MCV (80.0-100.0) fL MCHC (31.0-37.0) g/dL RDW (11.5-15.5) % Plt Count (150-450) k/uL Neutrophils # (Manual) (1.3-7.7) k/uL Lymphocytes # (Manual) (1.0-4.8) k/uL Monocytes # (Manual) (0-1.0) k/uL Eosinophils # (Manual) (0-0.7) k/uL Metamyelocytes # (Man) (0) k/uL Nucleated RBCs (0-0) /100 WBC Macrocytosis PT (9.0-12.0) sec INR (<1.2) ABG pH 7.29 L (7.35-7.45) ABG pCO2 56 H (35-45) mmHg ABG pO2 73 L (83-108) mmHg ABG HCO3 27 H (21-25) mmol/L ABG Total CO2 29 H (19-24) mmol/L BUN (9-20) mg/dL Creatinine (0.66-1.25) mg/dL Glucose (74-99) mg/dL POC Glucose (mg/dL) 117 H (75-99) mg/dL Calcium (8.4-10.2) mg/dL Total Bilirubin (0.2-1.3) mg/dL AST (17-59) U/L ALT (4-49) U/L Alkaline Phosphatase (38-126) U/L Total Protein (6.3-8.2) g/dL Albumin (3.5-5.0) g/dL Microbiology - Last 24 Hours (Table) 04/05/20 11:56 Blood Culture - Preliminary Blood No Growth after 48 hours 04/02/20 11:00 Blood Culture - Preliminary Blood No Growth after 120 hours Assessment and Plan Assessment: 1. Infection around catheter site with penile erosion. wound culture showing MRSA Enterobacter cloacae. 2. MRSA bacteremia repeat blood cultures ordered, 3. Gram-negative urinary tract infection related to ESBL Proteus mirabilis. 4. Acute kidney injury with elevated potassium secondary to septic shock. Patient currently on hemodialysis. Nephrology services are following maintained on 5. Supratherapeutic INR. Hold Coumadin and recheck. patient did receive vitamin K. Current INR 3.5 6. Possible pneumonia. Patient started on Levaquin and Rocephin. Pulmonary service is consulted 7. History of insulin-dependent diabetes mellitus 8. History of essential hypertension 9. History of hyperlipidemia. Maintained on statin 10. History of stroke with suppressive aphasia 11. History of morbid obesity 12. History of urinary retention and difficulty with Clinton insertion. per urology servicesFoley catheter has been removed patient advised follow-up in one month with urology services for cystoscopy 13. Dementia. Maintained on Aricept and Namenda 14. Diarrhea will check stools for C. diff. 15. Nurse reporting that patient is making statements about being depressed, his is also concerned in that regard, at this time will restart patient on Wellbutrin SR 150 mg by mouth once daily 16. Sepsis with hypothermia and hypotension , currently he is in ICU maintained on BiPAP, IV fluids and IV antibiotics he is improving gradually DVT prophylaxis SCDs due to subtherapeutic INR. GI prophylaxis Protonix Patient remains intensive care unit Levophed and vasopressin for pressure support anju cano for hypothermia Critical care, infectious disease and nephrology services are following Patient remains on daptomycin and meropenem for IV antibiotics
--- NOTE | 2020-04-08 12:35 | P.PN ---
Subjective Patient is seen in follow-up for acute kidney injury. Patient's renal function did improve initially upon admission but worsened again. Creatinine up to 4.5 on April 02 - started on hemodialysis for severe volume overload and low urine output. Still on Levophed and vasopressin. He is awake. Oral intake is poor. Currently on 5 L high flow nasal cannula. Tolerated 2.5 L ultrafiltration yesterday. Remains severely volume overloaded. Tolerating dialysis well. Vital signs: Currently on Levophed and vasopressin. Heart rate stable. General: The patient appeared well nourished and normally developed. HEENT: Head exam is unremarkable. LUNGS: Breath sounds decreased. HEART: Rate and Rhythm are regular. ABDOMEN: Soft, nontender. Obese. EXTREMITITES: 3+ edema. Objective - Vital Signs Vital signs: Vital Signs Temp 97.9 F 04/08/20 12:00 Pulse 60 04/08/20 12:00 Resp 20 04/08/20 12:00 BP 91/42 04/08/20 12:00 Pulse Ox 94 L 04/08/20 12:00 Intake & Output 04/07/20 04/08/20 04/08/20 18:59 06:59 18:59 Intake Total 705.770 744.232 272.147 Output Total 2500 40 Balance -1794.230 704.232 272.147 Weight 177.3 kg Intake: IV 276 399 215 Meropenem 1 gm In Sodium 100 100 Chloride 0.9% 100 ml @ 33 .3 mls/hr IVPB Q12HR [facility]U Rx#:[id number] Sodium Chloride 0.9% 1, 240 260 100 000 ml @ 20 mls/hr IV . Q24H PAU Rx#:[id number] pressure bag 36 39 15 Intake, IV Titration 179.770 345.232 57.147 Amount Norepinephrine 32 mg In 179.298 344.585 57.147 Sodium Chloride 0.9% 218 ml @ 0.05 MCG/KG/MIN 2. 883 mls/hr IV .Q24H PAU Rx#:[id number] Sodium Chloride 0.9% 50 0.472 0.647 ml @ Titrate IVPB .Q0M PAU with Vasopressin 20 unit Rx#:[id number] Oral 250 Output: Urine 40 Hemodialysis 2500 Other: Voiding Method Indwelling Catheter Indwelling Catheter Indwelling Catheter # Bowel Movements 1 ABP, PAP, CO, CI - Last Documented Arterial Blood Pressure 89/37 - Labs CBC & Chem 7: 04/08/20 03:40 04/08/20 03:40 Labs: Abnormal Lab Results - Last 24 Hours (Table) 04/08/20 04/08/20 04/08/20 Range/Units 03:40 03:40 03:40 WBC 15.0 H (3.8-10.6) k/uL RBC 3.07 L (4.30-5.90) m/uL Hgb 10.0 L (13.0-17.5) gm/dL Hct 32.7 L (39.0-53.0) % MCV 106.3 H (80.0-100.0) fL MCHC 30.7 L (31.0-37.0) g/dL RDW 18.9 H (11.5-15.5) % Plt Count 99 L (150-450) k/uL Neutrophils # (Manual) 12.70 H (1.3-7.7) k/uL Lymphocytes # (Manual) 0.60 L (1.0-4.8) k/uL Monocytes # (Manual) 1.05 H (0-1.0) k/uL Eosinophils # (Manual) 0.75 H (0-0.7) k/uL Metamyelocytes # (Man) 0.15 H (0) k/uL Nucleated RBCs 30 H (0-0) /100 WBC Macrocytosis Marked A PT 34.5 H (9.0-12.0) sec INR 3.5 H (<1.2) ABG pH (7.35-7.45) ABG pCO2 (35-45) mmHg ABG pO2 (83-108) mmHg ABG HCO3 (21-25) mmol/L ABG Total CO2 (19-24) mmol/L BUN 55 H (9-20) mg/dL Creatinine 3.10 H (0.66-1.25) mg/dL Glucose 106 H (74-99) mg/dL POC Glucose (mg/dL) (75-99) mg/dL Calcium 7.6 L (8.4-10.2) mg/dL Total Bilirubin 1.9 H (0.2-1.3) mg/dL AST 233 H (17-59) U/L ALT 166 H (4-49) U/L Alkaline Phosphatase 180 H (38-126) U/L Total Protein 5.7 L (6.3-8.2) g/dL Albumin 2.6 L (3.5-5.0) g/dL 04/08/20 04/08/20 Range/Units 04:30 05:46 WBC (3.8-10.6) k/uL RBC (4.30-5.90) m/uL Hgb (13.0-17.5) gm/dL Hct (39.0-53.0) % MCV (80.0-100.0) fL MCHC (31.0-37.0) g/dL RDW (11.5-15.5) % Plt Count (150-450) k/uL Neutrophils # (Manual) (1.3-7.7) k/uL Lymphocytes # (Manual) (1.0-4.8) k/uL Monocytes # (Manual) (0-1.0) k/uL Eosinophils # (Manual) (0-0.7) k/uL Metamyelocytes # (Man) (0) k/uL Nucleated RBCs (0-0) /100 WBC Macrocytosis PT (9.0-12.0) sec INR (<1.2) ABG pH 7.29 L (7.35-7.45) ABG pCO2 56 H (35-45) mmHg ABG pO2 73 L (83-108) mmHg ABG HCO3 27 H (21-25) mmol/L ABG Total CO2 29 H (19-24) mmol/L BUN (9-20) mg/dL Creatinine (0.66-1.25) mg/dL Glucose (74-99) mg/dL POC Glucose (mg/dL) 117 H (75-99) mg/dL Calcium (8.4-10.2) mg/dL Total Bilirubin (0.2-1.3) mg/dL AST (17-59) U/L ALT (4-49) U/L Alkaline Phosphatase (38-126) U/L Total Protein (6.3-8.2) g/dL Albumin (3.5-5.0) g/dL Microbiology - Last 24 Hours (Table) 04/05/20 11:56 Blood Culture - Preliminary Blood No Growth after 48 hours 04/02/20 11:00 Blood Culture - Preliminary Blood No Growth after 120 hours Assessment and Plan Plan: Assessment: 1. Acute kidney injury secondary to ATN secondary to septic shock. Started on hemodialysis April 02 via R IJ catheter for severe volume overload and low urine output. Urine output 0-10 mL an hour. No evidence of urinary retention. No clear hydronephrosis noted on kidney ultrasound. 2. Hyperkalemia secondary to acute kidney injury. Improved postdialysis. 3. Septic shock secondary to MRSA bacteremia maintained on Levophed, vasopressin. Low dose cosyntropin stimulation test was done earlier this admission and a cortisol level did rise post stimulation; however he was started on Cortef due to persistent hypotension. Now on stress dose steroids. 4. Volume overload. 5. Acute hypercapnic and hypoxic respiratory failure. 6. Penile erosion. Urology following. 7. Hypervolemic hyponatremia. Better. Plan: No response to IV diuretics. Currently seen while undergoing SLED - continue with daily SLED while he is on vasopressors. Wean vasopressors and FiO2. Continue to monitor renal function and urine output.
--- NOTE | 2020-04-08 14:21 | P.PN ---
Subjective Progress Note Date: 04/08/20 Sepsis secondary to penile erosion with secondary cellulitis On 04/02/2020, the patient got transferred to the intensive care unit. Earlier this morning, the patient was found to be hypothermic, hypotensive and the patient also having diminished level of consciousness. I saw the patient and I noted that the patient is also developed an acute kidney injury in the creatinine has been on a gradual rise over the past few days is currently up to 4.52. An immediate blood gases was done and the patient was found to have severe asked her acidosis. PH was at 7. 06 with a pCO2 of 77 acute of 161. At that point, the patient was placed on a BiPAP and BiPAP pressures were at 14/6 cm of water and FiO2 is being titrated to maintain a saturation above 90%. Subsequent blood gases showed some limited improvement with a pH of 7.09 and a pCO2 of 72 and pO2 of 99. The patient has significant diminished level of consciousness. He looks quite lethargic and obtunded. I contacted the . We radiatio for the need for intubation mechanical ventilation. The wanted to come to the hospital discussed this matter further. As such the patient is currently on a BiPAP for respiratory support. The patient was given a liter of IV fluids on the floor with normal saline and currently the patient is receiving IV fluids at the rate of 75 mL an hour. The patient was also started on norepinephrine infusion for blood pressure support. Antibiotic modification was done and the patient was started on IV Merrem in combination to Flagyl and daptomycin. His cardiac rhythm is sinus and the patient is having frequent PACs. INR therapeutic for now as the patient is on long-term articulation with warfarin. Note that the patient had a penile ulcer/infection with secondary cellulitis. The cultures were obtained earlier showed MRSA and Enterobacter and MRSA was also cultured and the blood on 03/17/2020. In addition to that the patient positive cultures for Proteus mirabilis in the urine from 03/17/2020. Anaerobes are also cultured from the penile wound. Most recent temperature is 94.4. Nephrology is on the case regarding acute kidney injury and the patient is oliguric and the patient is being considered for hemodialysis at this point in time. He is morbidly obese and he carries a BMI 53. On 04/03/2020 the patient is being seen for a follow-up. The patient is improved considerably compared to yesterday. Note that the patient came in to the ICU with septic shock. The patient was altered mentally and the patient was also having severe hypotension and he was hypothermic. Overnight, the patient was suspected IV fluids. The patient was also given pressors and the patient was on high-dose norepinephrine infusion running at 60 mg per minute and vasopressin at 0.03 units an hour. The patient was also supported with BiPAP throughout the night. He underwent dialysis also. This morning, there is marked improvement in the patient's overall mentation. His much more awake and alert. Repeat blood gases was done on the patient was on 10 L of oxygen by nasal cannula and the patient had a pH of 7.12 with a pCO2 55 and pO2 1:30. Note that during hemodialysis, the patient had a 1 L of ultrafiltration also. He is on a broad-spectrum antibiotics. Currently on a combination of meropenem, daptomycin, Flagyl and Diflucan. Hemodialysis to follow today. He is much more awake and alert. He is tolerating diet. The white cell count is up to 21.8 with a hemoglobin of 10.1. Based on the electrolytes, the patient's potassium level of 5.7. BUN is 85 with a creatinine of 3.97. The UA was abnormal and urine culture and blood cultures still pending for now. Furthermore during the day, the patient has been weaned down to 4 L of oxygen by nasal cannula. His current pulse ox 97%. His chest x-ray is showing mild bibasilar pulmonary infiltrates which is improved compared to yesterday and the patient has some mild cardiomegaly. On 04/04/2020, the patient again doing poorly. He remains in septic shock requiring high doses of pressors. The patient is also more lethargic and somnolent compared to yesterday. He is currently in 40s of oxygen by nasal cannula with pulse ox of 99%. He is profoundly hypotensive and the patient is still requiring high dose of Levothroid which is running at 90 g per minute and the patient is also on vasopressin at 0.04 units an hour and the patient on normal saline at 20 an hour. The patient remains on stress dose hydrocortisone. Antibiotic coverage essentially the same and the patient remains on a combination of daptomycin, meropenem, Flagyl and Diflucan. Repeat cultures of been all negative. Temperature has improved and the patient is not as hypothermic as he was yesterday. On his blood work, the patient continues to have a component of respiratory acidosis. The blood gas showed pH of 7.11 with a pCO2 of 69 and pO2 of 109. Not much different compared to yesterday's ABGs. He is not requiring BiPAP however. His BUN is at 81 with a creatinine of 4.02. His serum potassium is at 6. His serum bicarbonate 23. LFTs are slightly elevated with an AST of 141, ALT of 66, and alkaline phosphatase of 136. The patient is to undergo another session of hemodialysis today. This will be a slow low efficiency dialysis as the patient is quite hemodynamically stable. On 04/05/2020, the patient is being seen for a follow-up. He is awake. Unfortunately, the patient remains hemodynamically unstable requiring high doses of pressors. The patient is currently on a combination of vasopressin 0.04 units an hour and the patient also on norepinephrine infusion 75 g per minute. IV fluids are at KVO. The patient is to undergo another session of dialysis and the patient is showing improvement in the volume status and third spacing by daily hemodialysis. In terms of his respiratory status, the patient is on 4 L of oxygen by nasal cannula with a pulse ox of 96%. he is not hypothermic. He is not febrile. He does not have any significant altered mentation. He is awake and alert and following commands and answering questions appropriately. No nausea. No vomiting. No diarrhea. He is on broad-spectrum antibiotics and there is no clear source of infection at this point in time specially in the repeat cultures came back negative. I repeated a limited echocardiogram in the patient's LV function was again within normal limits. As such, the exact cause for his hypotension is not clear to me at this point in time although I strongly suspected is a septic shock. The broad-spectrum antibiotics including combi [place] of daptomycin, meropenem, Flagyl and Diflucan. Repeat cultures will be obtained. Meanwhile, the patient would undergo another session of hemodialysis. He has a left IJ temporary dialysis catheter in the right IJ triple-lumen catheter and exit sites are essentially clean and intact. The blood gases showing a component of respiratory acidosis and the patient's speech is at 7.17 with a pCO2 of 76 and pO2 of 85 and this was on FiO2 of 3 6% which is 40s about 2 by nasal cannula. White cell count is at 24. Hemoglobin is at 10.0. Urine output is quite diminished in the order of 5-10 mL an hour. 04/06/2020, the patient continues to be awake. Unfortunately, he continues to be in a shock state requiring high doses of pressors. No new culture results of the cultures of been all negative. Noted repeat cultures were sent yesterday as there was suspicion for ongoing anemia based on his underlying profound hypotension. This morning, the patient is running on norepinephrine infusion at 0.3 mg/kg per minute. Vasopressin is running at 0.04 units an hour. He is undergoing dialysis. Is tolerating dialysis well without any significant hypotension. Fluid balance is -1.6 L over the past 24 hours and there is ongoing improvement in his third spacing. Antibiotic coverage including combination of daptomycin and meropenem and Diflucan. The patient is afebrile. The patient is not having any altered mentation. Or encephalopathy. The patient is tolerating his diet. As reported, there is improvement in the third spacing. Urine output remains low in the order of 10 mL an hour. His white cell count shows improvement in his white cell count which is down to 19. BUN is at 68 with a creatinine of 3.26. His INR is currently at 2.7 with a PT of 26.7. On 04/07/2020, the patient is undergoing another session of hemodialysis. Doing well. They active issue for notices pressor dependence and the patient is still on levo fed running at 0.37 g per KG per minute. The patient remains on vasopressin 0.04 units an hour. IV antibiotics remains Merrem, daptomycin, Flagyl and Diflucan. He is afebrile. Repeat blood cultures are negative. Pressor requirements have improved compared to yesterday. Nevertheless, it has not been completely weaned off and discontinued. The patient is doing well. The patient is awake and alert. He is following commands and answering quest ions. He has no specific complaints. He underwent daily hemodialysis. He is third spacing and edema is also improving. He is on midodrine. He is also status post hydrocortisone at a dose of 100 mg IV every 8 hours. No other significant events overnight. His INR today is at 3.4 on oxygen monitoring the PT/INR. Hemoglobin is stable at 9.7 the white cell count is down to 17.6. On 04/08/2020, the patient is awake and alert. Doing well. No specific complaints. Active issue for now as the ongoing hypotension which is The patient intensive care unit. Despite his daily dialysis, the patient continues to have extensive amount of third spacing abdominal wall edema in lower extremity edema and upper extremity edema. He does have diffuse anasarca still. Scrotum is still swollen. Meanwhile, the patient remains on norepinephrine infusion at 0.33 mg/kg per minute in addition to vasopressin 0.04 units per minute and septal hydrocortisone. Repeat cultures of been negative. We are the process of gradually weaning down his inotropes. He remains on a combination of antibiotics including meropenem, daptomycin, Flagyl and Diflucan. No fever. No chills. No altered mentation. The white cell count is down to 15.0. Hemoglobin is at 10.0. INR is at 3.5. A repeat blood care showed improvement and acid base status and the patient's pH is at 7.29 with a pCO2 of 56 and pO2 of 73 and this is currently done in [address] by nasal cannula. Objective - Vital Signs Vital signs: Vital Signs Temp 97.9 F 04/08/20 12:00 Pulse 60 04/08/20 14:00 Resp 21 04/08/20 14:00 BP 86/40 04/08/20 14:00 Pulse Ox 95 04/08/20 14:00 Intake & Output 04/07/20 04/08/20 04/08/20 18:59 06:59 18:59 Intake Total 705.770 744.232 318.147 Output Total 2500 40 Balance -1794.230 704.232 318.147 Weight 177.3 kg Intake: IV 276 399 261 Meropenem 1 gm In Sodium 100 100 Chloride 0.9% 100 ml @ 33 .3 mls/hr IVPB Q12HR PAU Rx#:[id number] Sodium Chloride 0.9% 1, 240 260 140 000 ml @ 20 mls/hr IV . Q24H PAU Rx#:[id number] pressure bag 36 39 21 Intake, IV Titration 179.770 345.232 57.147 Amount Norepinephrine 32 mg In 179.298 344.585 57.147 Sodium Chloride 0.9% 218 ml @ 0.05 MCG/KG/MIN 2. 883 mls/hr IV .Q24H PAU Rx#:[id number] Sodium Chloride 0.9% 50 0.472 0.647 ml @ Titrate IVPB .Q0M PAU with Vasopressin 20 unit Rx#:[id number] Oral 250 Output: Urine 40 Hemodialysis 2500 Other: Voiding Method Indwelling Catheter Indwelling Catheter Indwelling Catheter # Bowel Movements 1 ABP, PAP, CO, CI - Last Documented Arterial Blood Pressure 107/43 - Exam GENERAL EXAM: the patient is awake and alert and much less somnolent 74-year-old white male, awake and alert and comfortable on 4 L of oxygen by nasal cannula. HEAD: Normocephalic/atraumatic. EYES: Normal reaction of pupils, equal size. Conjunctiva pink, sclera white. NOSE: Clear with pink turbinates. THROAT: No erythema or exudates. NECK: No masses, no JVD, no thyroid enlargement, no adenopathy. CHEST: No chest wall deformity. Symmetrical expansion. LUNGS: Equal air entry with bibasilar crackles. The patient is currently on BiPAP for respiratory support. CVS: Regular rate and rhythm, normal S1 and S2, no gallops, no murmurs, no rubs ABDOMEN: Soft, nontender. No hepatosplenomegaly, normal bowel sounds, no guarding or rigidity. The patient has a large anterior abdominal wound from previous abdominal surgeries. EXTREMITIES: No clubbing, there is edema bilaterally and the patient has chronic wounds and ulcerations in addition to that there is diminished pulses in all 4 extremities. The penile also seems to be improving and there is no purulent drainage at this point in time and the patient has no scrotal cellulitis. There is evidence of scrotal edema. Note that there is improvement in the swelling in lower extremities bilaterally. The lower extremity is wrapped at this point in time. Distal scrotal edema. No purulent discharge from the penile ulcer. MUSCULOSKELETAL: Muscle tone is markedly diminished in all 4 extremities. SPINE: No scoliosis or deformity SKIN: Bilateral abdominal ulcerations, and maceration with excoriation, left medial calcaneal ulceration CENTRAL NERVOUS SYSTEM:. The patient is awake and alert and following commands. patient is moving all 4 extremities without any limitation. He has diminished strength in all 4 extremities and there is global weakness. - Labs CBC & Chem 7: 04/08/20 03:40 04/08/20 03:40 Labs: Abnormal Lab Results - Last 24 Hours (Table) 04/08/20 04/08/20 04/08/20 Range/Units 03:40 03:40 03:40 WBC 15.0 H (3.8-10.6) k/uL RBC 3.07 L (4.30-5.90) m/uL Hgb 10.0 L (13.0-17.5) gm/dL Hct 32.7 L (39.0-53.0) % MCV 106.3 H (80.0-100.0) fL MCHC 30.7 L (31.0-37.0) g/dL RDW 18.9 H (11.5-15.5) % Plt Count 99 L (150-450) k/uL Neutrophils # (Manual) 12.70 H (1.3-7.7) k/uL Lymphocytes # (Manual) 0.60 L (1.0-4.8) k/uL Monocytes # (Manual) 1.05 H (0-1.0) k/uL Eosinophils # (Manual) 0.75 H (0-0.7) k/uL Metamyelocytes # (Man) 0.15 H (0) k/uL Nucleated RBCs 30 H (0-0) /100 WBC Macrocytosis Marked A PT 34.5 H (9.0-12.0) sec INR 3.5 H (<1.2) ABG pH (7.35-7.45) ABG pCO2 (35-45) mmHg ABG pO2 (83-108) mmHg ABG HCO3 (21-25) mmol/L ABG Total CO2 (19-24) mmol/L BUN 55 H (9-20) mg/dL Creatinine 3.10 H (0.66-1.25) mg/dL Glucose 106 H (74-99) mg/dL POC Glucose (mg/dL) (75-99) mg/dL Calcium 7.6 L (8.4-10.2) mg/dL Total Bilirubin 1.9 H (0.2-1.3) mg/dL AST 233 H (17-59) U/L ALT 166 H (4-49) U/L Alkaline Phosphatase 180 H (38-126) U/L Total Protein 5.7 L (6.3-8.2) g/dL Albumin 2.6 L (3.5-5.0) g/dL 04/08/20 04/08/20 Range/Units 04:30 05:46 WBC (3.8-10.6) k/uL RBC (4.30-5.90) m/uL Hgb (13.0-17.5) gm/dL Hct (39.0-53.0) % MCV (80.0-100.0) fL MCHC (31.0-37.0) g/dL RDW (11.5-15.5) % Plt Count (150-450) k/uL Neutrophils # (Manual) (1.3-7.7) k/uL Lymphocytes # (Manual) (1.0-4.8) k/uL Monocytes # (Manual) (0-1.0) k/uL Eosinophils # (Manual) (0-0.7) k/uL Metamyelocytes # (Man) (0) k/uL Nucleated RBCs (0-0) /100 WBC Macrocytosis PT (9.0-12.0) sec INR (<1.2) ABG pH 7.29 L (7.35-7.45) ABG pCO2 56 H (35-45) mmHg ABG pO2 73 L (83-108) mmHg ABG HCO3 27 H (21-25) mmol/L ABG Total CO2 29 H (19-24) mmol/L BUN (9-20) mg/dL Creatinine (0.66-1.25) mg/dL Glucose (74-99) mg/dL POC Glucose (mg/dL) 117 H (75-99) mg/dL Calcium (8.4-10.2) mg/dL Total Bilirubin (0.2-1.3) mg/dL AST (17-59) U/L ALT (4-49) U/L Alkaline Phosphatase (38-126) U/L Total Protein (6.3-8.2) g/dL Albumin (3.5-5.0) g/dL Microbiology - Last 24 Hours (Table) 04/05/20 11:56 Blood Culture - Preliminary Blood No Growth after 72 hours 04/02/20 11:00 Blood Culture - Final Blood No Growth after 144 hours Assessment and Plan Plan: 1 Septic shock. The patient is came in to the ICU hypotensive and hypothermic and his septic shock. Despite being on adequate antibiotic coverage, the patient continues to be requiring high doses of pressors and the patient is on high-dose norepinephrine infusion and vasopressin physiologic dose. The patient is also on stress dose hydrocortisone. A limited echocardiac Star was repeated and the patient was found to have a reserved LV function. No evidence of any pericardial effusion. The pressor requirements have improved over the past 24 hours and the patient is running on the lower pressors. , Continue midodrine for now. Continue physiologic dose of vasopressin. Continue stress dose hydrocortisone. Repeat cultures are all negative. The patient is being gradually weaned off the pressors recurrent norepinephrine is running at 0.33 mcg/kg per minute. 2 acute hypoxic/hypercapnic respiratory failure. The patient continues to be on oxygen at 4 L per minute nasal cannula. No worsening and oxygenation. The hypercapnic respiratory failure is improved and the patient's overall acid-base status is improved on the most recent blood gas. 3 Penile erosion secondary to catheter with suspected infection with secondary cellulitis, Wound cultures showed MRSA, Enterobacter cloacae in addition to anaerobes. The patient also staphylococcal septicemia 4 staph septicemia with MRSA 5 UTI secondary to ESBL Proteus mirabilis 6 acute kidney injury with secondary hypotension and sepsis and the patient has developed worsening in renal function with oligoria, currently the patient is undergoing hemodialysis ultrafiltration on a daily basis with improvement in the third spacing in the volume status. Another session of dialysis with ultrafil tration will be done today. The patient continues to have diffuse anasarca and diffuse swelling involving the extremities, abdominal wall, sacrum and scrotum. 7 nonhealing wounds under the abdominal folds, and left calcaneal area 8 obstructive uropathy with a indwelling Clinton catheter in place 9 advanced dementia with impairment in cognitive functions 10 chronic atrial fibrillation with a supratherapeutic PT/INR while on Coumadin , INR is at 3.5 11 history of aortic valve replacement 12 history of hypertension 13 obstructive sleep apnea. 14 history of pacemaker insertion for symptomatically bradycardia 15 COPD currently on room air oxygen with a pulse ox of 94% 16. chronic anemia 17. hyperlipidemia 18. history of previous CVA with expressive aphasia 19 BPH 20 chronic anemia, multifactorial, 21 hypothermia, improved 22 acute leukocytosis, white cell count remains elevated, improving white cell count is on the decline Plan Keep the patient intensive care unit. Broad-spectrum antibiotic coverage and add IV Merrem in addition to daptomycin and Flagyl, noted the patient is also on Diflucan. The repeat blood cultures of been negative. A limited echocardiogram was done yesterday and the patient has a reserved LV function without pericardial effusion. Continue pressors for hemodynamic support, and hoping to wean off the norepinephrine infusion gradually Continue stress dose hydrocortisone 100 mg every 8 hours of the patient's baseline serum cortisol level was low Hemodialysis with ultrafiltration today. The patient is going to undergo/SLED dialysis today and this was on daily basis to optimize volume status. There is improvement in his volume status and general. Continue anticoagulation profile, current INR is at 3.5 Active issue for now remains the patient's ongoing hypotension pressor requirements. The dose of norepinephrine infusion is improved compared to yesterday. No significant cardiac arrhythmias at this point in time. Overall conditions remain unchanged over the past 24 hours. The patient is still being seen by various consultants including infectious disease and nephrology. He does have had an aortic valve replacement. No evidence of endocarditis. No evidence of any endovascular infection. He may have an underlying poor vascular tone for sepsis and he will be gradually weaned off the pressors. Condition is critical at this point in time.
[2020-04-08] MEDS ORDERED: WARFARIN 0.5 MG TAB PO ONE (18:00)
[2020-04-08] MEDS: DONEPEZIL 10 MG TAB PO SCH (20:16)
[2020-04-08] MEDS: TAMSULOSIN 0.4 MG CAP.ER.24H PO SCH (20:16)
[2020-04-08] MEDS ORDERED: MELATONIN 5 MG TABLET PO SCH (21:00)
--- NOTE | 2020-04-08 23:39 | PN ---
PROGRESS NOTE DATE OF SERVICE: 04/08/2020 REASON FOR FOLLOWUP: 1. MRSA bacteremia secondary to soft tissue source. 2. Patient with sepsis possible abdominal source versus pneumonia. INTERVAL HISTORY: The patient is afebrile. The patient remains to be slightly lethargic. He is still requiring high-dose pressor support to maintain his blood pressure. dialysis. FiO2 is currently stable though. No vomiting or diarrhea or any other changes reported by the nursing staff. The patient himself unable to provide any history. PHYSICAL EXAMINATION: Blood pressure 96/38 with a pulse of 60, temperature 98. He is 97% on 4 L nasal cannula. General description is an elderly male lying in bed in no distress. RESPIRATORY SYSTEM: Unlabored breathing, decreased breath sounds in the bases. No wheeze. HEART: S1, S2. Regular rate and rhythm. ABDOMEN: Soft. No tenderness. Legs are . Wounds are currently dressed, no drainage. LABS: Hemoglobin is 10, white count 15. BUN of 55, creatinine 3.10. Culture repeat has been negative. DIAGNOSTIC IMPRESSION AND PLAN: 1. Patient with MRSA bacteremia secondary to the skin soft tissue source. Followup blood culture negative. Covered with daptomycin. 2. Patient with sepsis, possible abdominal source versus pneumonia. The patient has been on meropenem. White count showing a downward trend. Culture has been negative to continue and monitor his clinical course closely. MMODL / IJN: [id number] /
[2020-04-08] MEDS: SODIUM CHLORIDE 0.9% 1,000 ML IV SCH (23:55)
[2020-04-09] MEDS: HYDROCORTISONE SUCCINATE 100 MG/2 ML VIAL IV SCH ×2 (00:12→10:34)
[2020-04-09 05:09] LABS: Anisocytosis Slight; HCT 33.4 % (39.0-53.0); Hypochromasia Marked; MCH 32.3 pg (25.0-35.0); MCHC 29.9 g/dL (31.0-37.0); MCV 107.9 fL (80.0-100.0); Macrocytosis Marked; Mean Platelet Volume 9.8; Poikilocytosis Moderate; RBC 3.09 m/uL (4.30-5.90); RDW 18.8 % (11.5-15.5)
[2020-04-09 05:15] LABS: INR 3.1 (<1.2); Prothrombin Time 30.7 sec (9.0-12.0)
[2020-04-09 05:25] LABS: Platelet Count 77 k/uL (150-450)
[2020-04-09 05:42] LABS: Albumin 2.5 g/dL (3.5-5.0); Calcium 7.9 mg/dL (8.4-10.2); Potassium 4.3 mmol/L (3.5-5.1); Total Bilirubin 1.8 mg/dL (0.2-1.3); Total Protein 5.7 g/dL (6.3-8.2)
[2020-04-09 05:52] LABS: Basophilic Stippling Present; Lymphocytes # (M) 0.74 k/uL (1.0-4.8); Neutrophils # (M) 13.97 k/uL (1.3-7.7); Neutrophils % (M) 95 %; Nucleated Red Blood Cells 14 /100 WBC (0-0); Polychromasia Present; Total Cells Counted 200; WBC 14.7 k/uL (3.8-10.6)
[2020-04-09] MEDS: PANTOPRAZOLE 40 MG/10 ML VIAL IVP SCH ×2 (06:36→10:34)
[2020-04-09] MEDS: MAGNESIUM OXIDE 400 MG TAB PO SCH (06:41)
[2020-04-09] MEDS: FERROUS SULFATE 325 MG TAB PO SCH (06:41)
[2020-04-09] MEDS: CHOLECALCIFEROL 1,000 UNIT TAB PO SCH (06:41)
[2020-04-09] MEDS: MIDODRINE 5 MG TAB PO SCH (06:42)
[2020-04-09 07:04] VITALS: BP 101/43
[2020-04-09] MEDS: SYMBICORT 160-4.5 MCG INHALER INHALATION SCH (08:05)
[2020-04-09] MEDS: ALBUTEROL HFA INHALER INHALATION PRN ×2 (08:05→12:04)
[2020-04-09] MEDS: FLUCONAZOLE 100 MG TAB PO SCH (10:31)
[2020-04-09] MEDS: MEMANTINE 5 MG TAB PO SCH (10:31)
[2020-04-09] MEDS: buPROPion SR 150 MG TABLET.ER PO SCH (10:31)
[2020-04-09] MEDS: MEROPENEM 1 GM in SODIUM CHLORIDE 0.9% 100 ML IVPB SCH (10:34)
--- NOTE | 2020-04-09 11:47 | P.PN ---
Subjective Patient is seen in follow-up for acute kidney injury. Patient's renal function did improve initially upon admission but worsened again. Creatinine up to 4.5 on April 02 - started on hemodialysis for severe volume overload and low urine output. Still on Levophed and vasopressin. He is quite lethargic. Oral intake is poor. Currently on 4 L high flow nasal cannula. Tolerated 3 L ultrafiltration yesterday. Remains severely volume overloaded. Comfort measures being considered. Vital signs: Currently on Levophed and vasopressin. Heart rate stable. General: The patient appeared well nourished and normally developed. HEENT: Head exam is unremarkable. LUNGS: Breath sounds decreased. HEART: Rate and Rhythm are regular. ABDOMEN: Soft, nontender. Obese. EXTREMITITES: 3+ edema. Objective - Vital Signs Vital signs: Vital Signs Temp 97.7 F 04/09/20 04:00 Pulse 61 04/09/20 07:00 Resp 20 04/09/20 07:00 BP 101/43 04/09/20 07:00 Pulse Ox 92 L 04/09/20 07:00 Intake & Output 04/08/20 04/09/20 04/09/20 18:59 06:59 18:59 Intake Total 488.754 376.285 23 Output Total 3000 10 0 Balance -2511.246 366.285 23 Weight 174.2 kg Intake: IV 353 376 23 Meropenem 1 gm In Sodium 100 100 Chloride 0.9% 100 ml @ 33 .3 mls/hr IVPB Q12HR PAU Rx#:[id number] Sodium Chloride 0.9% 1, 220 240 20 000 ml @ 20 mls/hr IV . Q24H PAU Rx#:[id number] pressure bag 33 36 3 Intake, IV Titration 135.754 0.285 Amount Norepinephrine 32 mg In 135.273 Sodium Chloride 0.9% 218 ml @ 0.05 MCG/KG/MIN 2. 883 mls/hr IV .Q24H PAU Rx#:[id number] Sodium Chloride 0.9% 50 0.481 0.285 ml @ Titrate IVPB .Q0M PAU with Vasopressin 20 unit Rx#:[id number] Output: Urine 10 0 Hemodialysis 3000 Other: Voiding Method Indwelling Catheter Indwelling Catheter ABP, PAP, CO, CI - Last Documented Arterial Blood Pressure 111/50 - Labs CBC & Chem 7: 04/09/20 05:00 04/09/20 05:00 Labs: Abnormal Lab Results - Last 24 Hours (Table) 04/09/20 04/09/20 04/09/20 Range/Units 05:00 05:00 05:00 WBC 14.7 H (3.8-10.6) k/uL RBC 3.09 L (4.30-5.90) m/uL Hgb 10.0 L (13.0-17.5) gm/dL Hct 33.4 L (39.0-53.0) % MCV 107.9 H (80.0-100.0) fL MCHC 29.9 L (31.0-37.0) g/dL RDW 18.8 H (11.5-15.5) % Plt Count 77 L (150-450) k/uL Neutrophils # (Manual) 13.97 H (1.3-7.7) k/uL Lymphocytes # (Manual) 0.74 L (1.0-4.8) k/uL Nucleated RBCs 14 H (0-0) /100 WBC Macrocytosis Marked A PT 30.7 H (9.0-12.0) sec INR 3.1 H (<1.2) Chloride 109 H (98-107) mmol/L BUN 49 H (9-20) mg/dL Creatinine 3.38 H (0.66-1.25) mg/dL Glucose 116 H (74-99) mg/dL Calcium 7.9 L (8.4-10.2) mg/dL Total Bilirubin 1.8 H (0.2-1.3) mg/dL AST 179 H (17-59) U/L ALT 154 H (4-49) U/L Alkaline Phosphatase 174 H (38-126) U/L Total Protein 5.7 L (6.3-8.2) g/dL Albumin 2.5 L (3.5-5.0) g/dL Microbiology - Last 24 Hours (Table) 04/05/20 11:56 Blood Culture - Preliminary Blood No Growth after 72 hours 04/02/20 11:00 Blood Culture - Final Blood No Growth after 144 hours Assessment and Plan Plan: Assessment: 1. Acute kidney injury secondary to ATN secondary to septic shock. Started on hemodialysis April 02 via R IJ catheter for severe volume overload and low urine output. Urine output 0-10 mL an hour. No evidence of urinary retention. No clear hydronephrosis noted on kidney ultrasound. 2. Hyperkalemia secondary to acute kidney injury. Improved postdialysis. 3. Septic shock secondary to MRSA bacteremia maintained on Levophed, vasopressin. Low dose cosyntropin stimulation test was done earlier this admission and a cortisol level did rise post stimulation; however he was started on Cortef due to persistent hypotension. Now on stress dose steroids. 4. Volume overload. 5. Acute hypercapnic and hypoxic respiratory failure. 6. Penile erosion. Urology following. 7. Hypervolemic hyponatremia. Better. Plan: No response to IV diuretics. Comfort measures being considered - awaiting 's arrival. Will proceed with another treatment of SLED today if not comfort care today. Wean vasopressors and FiO2. Continue to monitor renal function and urine output. Overall prognosis guarded.
[2020-04-09 12:00] VITALS: PULSE 60; TEMP 96.9
[2020-04-09] MEDS ORDERED: MORPHINE SULFATE 2 MG/ML SYRINGE IV PRN (12:53)
[2020-04-09] MEDS ORDERED: GLYCOPYRROLATE 0.2 MG/ML 2 ML VIAL IVP PRN (12:53)
[2020-04-09 13:12] VITALS: RESP 17
[2020-04-09] MEDS ORDERED: MORPHINE SULFATE (100 MG/2 ML) 100 MG in SODIUM CHLORIDE 0.9% 100 ML IV SCH (13:30)
--- NOTE | 2020-04-09 14:45 | P.PN ---
Subjective Progress Note Date: 04/09/20 Principal diagnosis: Septic shock, acute hypoxic and hypercapnic respiratory failure, MRSA septicemia ESBL Proteus UTI On 04/08/2020, the patient is awake and alert. Doing well. No specific complaints. Active issue for now as the ongoing hypotension which is The patient intensive care unit. Despite his daily dialysis, the patient continues to have extensive amount of third spacing abdominal wall edema in lower extremity edema and upper extremity edema. He does have diffuse anasarca still. Scrotum is still swollen. Meanwhile, the patient remains on norepinephrine inf usion at 0.33 mg/kg per minute in addition to vasopressin 0.04 units per minute and septal hydrocortisone. Repeat cultures of been negative. We are the process of gradually weaning down his inotropes. He remains on a combination of antibiotics including meropenem, daptomycin, Flagyl and Diflucan. No fever. No chills. No altered mentation. The white cell count is down to 15.0. Hemoglobin is at 10.0. INR is at 3.5. A repeat blood care showed improvement and acid base status and the patient's pH is at 7.29 with a pCO2 of 56 and pO2 of 73 and this is currently done in 40 to by nasal cannula. Patient was reevaluated today on 04/09/20, remains in the ICU, he is now on 4 L nasal cannula, O2 saturations 89%, patient is lethargic, he is being treated for sepsis, and he is also requiring significant amount of norepinephrine and vasopressin. He is presently on 54 g of norepinephrine and 0.044 units of vasopressin. Patient has a paced rhythm, rate of 60/m, lethargic, arousable, follows simple instructions. Still receiving antibiotics for MRSA bacteremia, and for his underlying urinary tract infection. WBC count today is 14.7 hemoglobin is 10. INR is 3.1. ABG yesterday showed a pO2 of 73 pCO2 of 56 and pH of 7.29. Basic metabolic profile is normal BUN is 49 creatinine is 3.38. Objective - Vital Signs Vital signs: Vital Signs Temp 96.9 F L 04/09/20 08:00 Pulse 60 04/09/20 13:00 Resp 17 04/09/20 13:00 BP 101/43 04/09/20 07:00 Pulse Ox 95 04/09/20 13:00 Intake & Output 04/08/20 04/09/20 04/09/20 18:59 06:59 18:59 Intake Total 488.754 376.285 238 Output Total 3000 10 10 Balance -2511.246 366.285 228 Weight 174.2 kg Intake: IV 353 376 238 Meropenem 1 gm In Sodium 100 100 100 Chloride 0.9% 100 ml @ 33 .3 mls/hr IVPB Q12HR PAU Rx#:[id number] Sodium Chloride 0.9% 1, 220 240 120 000 ml @ 20 mls/hr IV . Q24H PAU Rx#:[id number] pressure bag 33 36 18 Intake, IV Titration 135.754 0.285 Amount Norepinephrine 32 mg In 135.273 Sodium Chloride 0.9% 218 ml @ 0.05 MCG/KG/MIN 2. 883 mls/hr IV .Q24H PAU Rx#:[id number] Sodium Chloride 0.9% 50 0.481 0.285 ml @ Titrate IVPB .Q0M PAU with Vasopressin 20 unit Rx#:[id number] Output: Urine 10 10 Hemodialysis 3000 Other: Voiding Method Indwelling Catheter Indwelling Catheter Indwelling Catheter # Bowel Movements 1 ABP, PAP, CO, CI - Last Documented Arterial Blood Pressure 106/40 - Exam GENERAL EXAM: Revealed a 74-year-old white male obese somnolent in no distress. HEAD: Normocephalic/atraumatic. HEENT: PERRLA, EOMI, no icterus. No neck masses, no JVD, no stridor. CHEST: No chest wall deformity. Symmetrical expansion. LUNGS: Equal air entry with bibasilar crackles. Currently on 4 L nasal cannula. CVS: Regular rate and rhythm, normal S1 and S2, no gallops, no murmurs, no rubs ABDOMEN: Soft, nontender. No hepatosplenomegaly, normal bowel sounds, no guarding or rigidity. The patient has a large anterior abdominal wound from previous abdominal surgeries. EXTREMITIES: No clubbing, there is edema bilaterally and the patient has chronic wounds and ulcerations in addition to that there is diminished pulses in all 4 extremities. The penile also seems to be improving and there is no purulent drainage at this point in time and the patient has no scrotal cellulitis. There is evidence of scrotal edema. Note that there is improvement in the swelling in lower extremities bilaterally. The lower extremity is wrapped at this point in time. Distal scrotal edema. No purulent discharge from the penile ulcer. MUSCULOSKELETAL: Muscle tone is markedly diminished in all 4 extremities. SPINE: No scoliosis or deformity SKIN: Bilateral abdominal ulcerations, and maceration with excoriation, left medial calcaneal ulceration CENTRAL NERVOUS SYSTEM:. The patient is lethargic but arousable and following commands. patient is moving all 4 extremities without any limitation. He has diminished strength in all 4 extremities and there is global weakness. - Labs CBC & Chem 7: 04/09/20 05:00 04/09/20 05:00 Labs: Abnormal Lab Results - Last 24 Hours (Table) 04/09/20 04/09/20 04/09/20 Range/Units 05:00 05:00 05:00 WBC 14.7 H (3.8-10.6) k/uL RBC 3.09 L (4.30-5.90) m/uL Hgb 10.0 L (13.0-17.5) gm/dL Hct 33.4 L (39.0-53.0) % MCV 107.9 H (80.0-100.0) fL MCHC 29.9 L (31.0-37.0) g/dL RDW 18.8 H (11.5-15.5) % Plt Count 77 L (150-450) k/uL Neutrophils # (Manual) 13.97 H (1.3-7.7) k/uL Lymphocytes # (Manual) 0.74 L (1.0-4.8) k/uL Nucleated RBCs 14 H (0-0) /100 WBC Macrocytosis Marked A PT 30.7 H (9.0-12.0) sec INR 3.1 H (<1.2) Chloride 109 H (98-107) mmol/L BUN 49 H (9-20) mg/dL Creatinine 3.38 H (0.66-1.25) mg/dL Glucose 116 H (74-99) mg/dL Calcium 7.9 L (8.4-10.2) mg/dL Total Bilirubin 1.8 H (0.2-1.3) mg/dL AST 179 H (17-59) U/L ALT 154 H (4-49) U/L Alkaline Phosphatase 174 H (38-126) U/L Total Protein 5.7 L (6.3-8.2) g/dL Albumin 2.5 L (3.5-5.0) g/dL Microbiology - Last 24 Hours (Table) 04/05/20 11:56 Blood Culture - Preliminary Blood No Growth after 96 hours 04/02/20 11:00 Blood Culture - Final Blood No Growth after 144 hours Assessment and Plan Assessment: Impression: Septic shock Staph aureus septicemia with MRSA. ESBL Proteus mirabilis UTI. Acute kidney injury. Acute hypoxic/hypercapnic respiratory failure. Nonhealing wounds under the abdominal folds and left calcaneal area. Obstructive uropathy and chronic indwelling [place] catheter. Advanced dementia and impaired cognitive function Chronic atrial fibrillation History of aortic valve replacement. Obstructive sleep apnea syndrome. History of permanent pacemaker implantation. Acute kidney injury, on hemodialysis. History of CVA and expressive aphasia. Chronic anemia, multifactorial. Recommendation: Continue broad-spectrum antibiotics, patient is now on Merrem, daptomycin and Flagyl. He is also on Diflucan. Continue stress doses of hydrocortisone. Continue hemodialysis with ultrafiltration. Continue to monitor daily labs and coagulation profile. Continue hemodynamic support. Continue to follow with multiple consultants on the case. Overall prognosis remains extremely poor and guarded. Patient is critically ill, I am recommending family to be approached regarding CODE STATUS and possibly consider comfort care measures on this patient. Patient of course is critically ill, and prognosis is extremely poor, Critical care time is 34 minutes Time with Patient: Greater than 30
[2020-04-09 14:53] VITALS: BMI 50.6
[2020-04-09] MEDS ORDERED: WARFARIN 1 MG TAB PO ONE (18:00)
--- NOTE | 2020-04-09 18:25 | P.PN ---
Subjective Progress Note Date: 04/09/20 Te Brady is a 74-year-old male patient who presented to the ER from rehab with complaints of increased O fungal rash in the groin eroding foreskin secondary to catheter. Patient also had acute kidney injury and elevated INR. Patient's past medical history of atrial fibrillation which she is maintained on Coumadin, heart failure, COPD, dementia, hypertension, myocardial infarction, osteoarthritis with sleep apnea in which he uses home CPAP machine, pacemaker, anxiety and heart valve replacement. Patient's creatinine upon admission 3.07 and bun 77 potassium also elevated at 56. INR greater than 10. UA positive for the same Estrace. Chest x-ray completed showing T over the left lower lung r egion correlate for atelectasis or pneumonia. At this time patient has been started on Rocephin and Levaquin for IV antibiotics. Urology services have been consulted. Nephrology service is consulted for acute kidney injury. Potassium lowering cocktail given per nephrology. Dr. zavala and has been consulted for pulmonary due to possible pneumonia. Wound and blood cultures ordered. at this time patient denies chest pain or shortness of breath. Patient denies nausea vomiting or diarrhea. On 03/19/2020 patient was seen and examined on the medical floor he is alert and oriented 3 in no apparent distress, he is complaining of diarrhea with stool incontinence, otherwise he denies any complaints there is no fever or chills no headache or dizziness, no chest pain no shortness of breath no cough no nausea or vomiting no abdominal pain no blood in the stools no burning with urination no frequency or urgency and no hematuria 03/20/2020 patient was seen and examined on the medical floor he is alert and oriented 3 in no apparent distress there is no fever or chills no headache or d izziness no chest pain no shortness of breath no cough no nausea or vomiting no abdominal pain no diarrhea no blood in the stools no burning with urination no frequency or urgency and no hematuria. Clinton catheter has been removed and patient is able to urinate. INR is still elevated patient will be getting vitamin K 2.5 mg by mouth 1 time today on 03/21/2020 patient is alert and oriented 3currently sitting up in chair. INR today 3.5. patient maintained on meropenem and vancomycin for IV an tibiotics. At that time Clinton catheter has been removed to patient voiding independently will follow-up outpatient with urology for possible cystoscopy. At this time patient denies chest pain or shortness of breath. Patient denies nausea vomiting or diarrhea. Patient denies any urinary burning or frequency On 03/22/2020 patient was seen and examined on the medical floor he is alert and oriented 3 in no distress, he had the midline placed today and antibiotic were resumed, white blood count is elevated at 13.5, there is no fever or chills no headache or dizziness no chest pain no shortness of breath no cough no nausea or vomiting no abdominal pain no diarrhea and no urinary symptoms. On 03/23/2020 patient was seen and examined on the medical floor he is alert and oriented 3 in no apparent distress there is no fever or chills no headache or dizziness no chest pain no shortness of breath no cough no nausea or vomiting no abdominal pain no diarrhea and no urinary symptoms white blood count remains elevated, patient was resumed on IV antibiotic via midline will continue to monitor during this weekend. On 03/24/2020 patient was seen and examined on the medical floor he is alert and oriented in no apparent distress he is sitting up in chair he denies any complaints at this time there is no fever or chills no headache or dizziness no chest pain no shortness of breath no palpitation no cough no nausea or vomiting no abdominal pain no diarrhea no blood in the stools no burning with urination no frequency or urgency and no hematuria. On 03/25/2020 patient was seen and examined on the medical floor he is alert and oriented in no distress he denies any symptoms at this time, he is sitting up in a chair eating his meal, there is no fever or chills no headache or dizziness no chest pain no shortness of breath no cough no nausea or vomiting no abdominal pain no diarrhea no blood in the stools no burning with urination no frequency or urgency and no hematuria. Infectious disease recommendation reviewed patient has a midline he will need to go to the [facility] on IV antibiotic. on 03/26/2020 patient was seen and examined on the medical floor he is alert and oriented 3 in no distress he is complaining of generalized weakness otherwise no specific complaints there is no fever or chills no headache or dizziness no chest pain no shortness of breath no cough no nausea or vomiting no abdominal pain no diarrhea and no urinary symptoms, he remains on IV antibiotic white blood count is still elevated . Patient has a midline in the right arm, he will need to continue IV antibiotic at the [facility], he is urinating well without Clinton catheter. On 03/27/2020 patient was seen and examined on the medical floor he is alert and oriented 3 in no distress there is no fever or chills no headache or dizziness no chest pain no shortness of breath no cough no nausea or vomiting no abdominal pain no diarrhea no blood in the stools no burning with urination no frequency or urgency and no hematuria is still complaining of generalized weakness On 03/28/2020 patient is alert and oriented 3. Discussed case with Dr. Walt Aviles and continue daptomycin recommending keeping patient 24 more hours to watch kidney function. Likely discharge to [facility] tomorrow. Patient denies chest pain or shortness of breath. Patient denies nausea vomiting or diarrhea. Patient denies any urinary burning or frequency. Did discuss case also with nephrology services recommending lasix twice a day upon discharge On 03/29/2020 patient was seen and examined on the medical floor he is alert and oriented 3 in no apparent distress there is no fever or chills no headache or dizziness no chest pain no shortness of breath no cough no nausea or vomiting no abdominal pain no diarrhea no blood in the stools no burning with urination no frequency or urgency and no hematuria. Kidney function is slightly worse today. At this time patient is stable, awaiting clearance from infectious disease and nephrology, and the recommendation for discharge antibiotics On 03/30/2020 patient had low temp all-night. Rectal temps were obtained and patient was placed on bear hugger. Patient is alert and oriented. At this time critical care services have been consulted. Chest x-ray urine culture and blood cultures ordered. Did discuss case with infectious disease updated outpatient physician. Blood pressure and heart rate have remained stable. Lactic acid was checked in stable at 1.0. Kidney function slightly worse today. Continue to monitor patient very closely critical care infectious disease and nephrology services are following. On 03/31/2020 patient was seen and examined on the medical floor he is alert and oriented 3 in no distress, he is still having episodes of hypothermia, there is no fever or chills no headache or dizziness no chest pain no shortness of breath no cough no nausea or vomiting no abdominal pain no diarrhea and no urinary symptoms. Medication and labs were reviewed, input from multiple consultants reviewed in details. On 04/01/2020 patient is alert and oriented 3. Creatinine increasing. Patient also having low pressures. Recommendations per nephrology to transfer patient to ICU and start Levophed. 2-D echo cardiology consult placed also to rule out cardiorenal syndrome. Discussed case with critical care team and nurse practitioner, updated on nephrology recommendation on ICU transfer and initiation of Levophed. At this time patient denies chest pain. Patient denies shortness breath. Patient denies nausea vomiting or diarrhea. Patient denies any urinary burning or frequency. Critical care, nephrology, infectious disease already following. Cardiology consult placed. On 04/02/2020 patient was seen and examined he continued to have episodes of hypothermia and hypotension he was reevaluated by critical care Dr. Gomez today at this time patient will be transferred to intensive care unit. Clinically patient is alert and oriented he denies any chest pain he has occasional shortness of breath no headache or dizziness no nausea vomiting or abdominal pain and no urinary symptoms. On 04/03/2020 patient was seen and examined in the ICU he is alert responsive maintained on BiPAP, patient is maintained on IV fluid and IV vasopressors, he is also maintained on IV antibiotics daptomycin and Diflucan and meropenem and Flagyl his condition has stabilized since yesterday. On 04/04/2020 patient was seen and examined in the ICU he is alert responsive in no apparent distress he is currently maintained on oxygen via nasal cannula and is tolerating well he is in hemodialysis at this time there is no fever or chills no headache or dizziness no chest pain no shortness of breath no cough no nausea or vomiting no abdominal pain no diarrhea no blood in the stools no burning with urination no frequency or urgency and no hematuria On 04/05/2020 patient was seen and examined in the ICU he is alert responsive in no apparent distress he is still maintained on vasopressors, his vital examination reveals a temperature of 97 pulse 60 respiration 16 blood pressure 126/62 his white blood count is 24.0 hemoglobin 10.0 platelet count 172 INR 2.7 sodium 136 potassium 5.4 BUN 71 creatinine 3.65 he is scheduled to have hemodialysis again today there is no fever or chills no headache or dizziness no chest pain no shortness of breath no cough no nausea or vomiting no abdominal pain no diarrhea and no urinary symptoms. On 04/06/2020 patient was seen and examined in the ICU he is alert and oriented 3 in no distress till maintained on vasopressor he is receiving hemodialysis again today clinically he is alert and oriented and denying any complaints there is no fever or chills no headache or dizziness no chest pain no shortness of breath no cough no nausea or vomiting no abdominal pain no diarrhea and no urinary symptoms. On 04/07/2020 patient was seen and examined in the ICU he is alert and oriented 3 he is still in critical condition he had episodes of hypothermia again he is maintained on vasopressors, nephrology are following and patient is receiving hemodialysis, patient is complaining of generalized weakness otherwise he denies any specific complaints there is no fever or chills no headache or dizziness no chest pain no shortness of breath no cough no nausea or vomiting no abdominal pain no diarrhea and no urinary symptoms. INR is 3.4 Will hold Coumadin today. White blood count is 17.6 hemoglobin 9.7 platelet count 105 BUN 58 creatinine 3.01, patient is maintained on hemodialysis On 04/08/2020 patient remains in the intensive care unit. Patient remains on Levophed and vasopressin for pressure support. Nephrology infectious disease in critical care services are following. Creatinine 3.10 and bun 55. white Blood cell is trending down to 15.0. Patient denies any chest pain or shortness breath. Patient denies nausea vomiting or diarrhea. Patient denies any urinary burning or frequency. Patient maintained daptomycin and meropenem. Patient's temp low at 92.4 patient was placed on bear hugger temperature has improved . On 04/09/2020 patient was seen and examined in the ICU his family was approached earlier by pulmonary critical care service and decision was made to proceed with changing his CODE STATUS to cough port care only. At this time antibiotics and multiple medication were discontinued and patient was started on IV morphine, his course is terminal will consult hospice Objective - Vital Signs Vital signs: Vital Signs Temp 96.9 F L 04/09/20 08:00 Pulse 60 04/09/20 13:00 Resp 17 04/09/20 13:00 BP 101/43 04/09/20 07:00 Pulse Ox 95 04/09/20 13:00 Intake & Output 04/08/20 04/09/20 04/09/20 18:59 06:59 18:59 Intake Total 488.754 376.285 250.546 Output Total 3000 10 10 Balance -2511.246 366.285 240.546 Weight 174.2 kg 174.2 kg Intake: IV 353 376 238 Meropenem 1 gm In Sodium 100 100 100 Chloride 0.9% 100 ml @ 33 .3 mls/hr IVPB Q12HR [facility] Rx#:[id number] Sodium Chloride 0.9% 1, 220 240 120 000 ml @ 20 mls/hr IV . Q24H [facility] Rx#:[id number] pressure bag 33 36 18 Intake, IV Titration 135.754 0.285 12.546 Amount Morphine Sulfate (100 mg/ 12.546 2 ml) 100 mg In Sodium Chloride 0.9% 100 ml @ 1 MG/HR 1.02 mls/hr IV . Q24H [facility] Rx#:[id number] Norepinephrine 32 mg In 135.273 Sodium Chloride 0.9% 218 ml @ 0.05 MCG/KG/MIN 2. 883 mls/hr IV .Q24H [facility] Rx#:[id number] Sodium Chloride 0.9% 50 0.481 0.285 ml @ Titrate IVPB .Q0M [facility] with Vasopressin 20 unit Rx#:[id number] Output: Urine 10 10 Hemodialysis 3000 Other: Voiding Method Indwelling Catheter Indwelling Catheter Indwelling Catheter # Bowel Movements 1 ABP, PAP, CO, CI - Last Documented Arterial Blood Pressure 106/40 - Exam Head normocephalic and atraumatic Neck supple no JVD no goiter Lungs clear to auscultation bilaterally no wheezing or crackles Heart irregular rate. known atrial fibrillation Abdomen is soft nontender nondistended positive bowel sounds no hepatosplenomegaly Extremities no edema no cyanosis or clubbing Neuro alert and orientated to 2. Dementia Drainage noted to penile area around catheter. Erosion to groin area. - Labs CBC & Chem 7: 04/09/20 05:00 04/09/20 05:00 Labs: Abnormal Lab Results - Last 24 Hours (Table) 04/09/20 04/09/20 04/09/20 Range/Units 05:00 05:00 05:00 WBC 14.7 H (3.8-10.6) k/uL RBC 3.09 L (4.30-5.90) m/uL Hgb 10.0 L (13.0-17.5) gm/dL Hct 33.4 L (39.0-53.0) % MCV 107.9 H (80.0-100.0) fL MCHC 29.9 L (31.0-37.0) g/dL RDW 18.8 H (11.5-15.5) % Plt Count 77 L (150-450) k/uL Neutrophils # (Manual) 13.97 H (1.3-7.7) k/uL Lymphocytes # (Manual) 0.74 L (1.0-4.8) k/uL Nucleated RBCs 14 H (0-0) /100 WBC Macrocytosis Marked A PT 30.7 H (9.0-12.0) sec INR 3.1 H (<1.2) Chloride 109 H (98-107) mmol/L BUN 49 H (9-20) mg/dL Creatinine 3.38 H (0.66-1.25) mg/dL Glucose 116 H (74-99) mg/dL Calcium 7.9 L (8.4-10.2) mg/dL Total Bilirubin 1.8 H (0.2-1.3) mg/dL AST 179 H (17-59) U/L ALT 154 H (4-49) U/L Alkaline Phosphatase 174 H (38-126) U/L Total Protein 5.7 L (6.3-8.2) g/dL Albumin 2.5 L (3.5-5.0) g/dL Microbiology - Last 24 Hours (Table) 04/05/20 11:56 Blood Culture - Preliminary Blood No Growth after 96 hours Assessment and Plan Assessment: 1. Infection around catheter site with penile erosion. wound culture showing MRSA Enterobacter cloacae. 2. MRSA bacteremia repeat blood cultures ordered, 3. Gram-negative urinary tract infection related to ESBL Proteus mirabilis. 4. Acute kidney injury with elevated potassium secondary to septic shock. Patient currently on hemodialysis. Nephrology services are following maintained on 5. Supratherapeutic INR. Hold Coumadin and recheck. patient did receive vitamin K. Current INR 3.5 6. Possible pneumonia. Patient started on Levaquin and Rocephin. Pulmonary service is consulted 7. History of insulin-dependent diabetes mellitus 8. History of essential hypertension 9. History of hyperlipidemia. Maintained on statin 10. History of stroke with suppressive aphasia 11. History of morbid obesity 12. History of urinary retention and difficulty with Clinton insertion. per urology servicesFoley catheter has been removed patient advised follow-up in one month with urology services for cystoscopy 13. Dementia. Maintained on Aricept and Namenda 14. Diarrhea will check stools for C. diff. 15. Nurse reporting that patient is making statements about being depressed, his is also concerned in that regard, at this time will restart patient on Wellbutrin SR 150 mg by mouth once daily 16. Sepsis with hypothermia and hypotension , currently he is in ICU maintained on BiPAP, IV fluids and IV antibiotics he is improving gradually DVT prophylaxis SCDs due to subtherapeutic INR. GI prophylaxis Protonix Patient remains intensive care unit Levophed and vasopressin for pressure support anju cano for hypothermia Critical care, infectious disease and nephrology services are following Patient remains on daptomycin and meropenem for IV antibiotics
== END 2020-04-09 20:00 | disposition expired | DRG 698 ==
LOC: EC 13:05 → 3SCARD 16:55 → 2SICU 04-02 13:52
PROVIDERS: ADMIT Internal Medicine; ATTEND Internal Medicine
PROC: 05HF33Z Insertion of Infusion Device into Left Cephalic Vein, Percutaneous Approach (ICD-10-PCS; 2020-03-21)
PROC: 05HF33Z Insertion of Infusion Device into Left Cephalic Vein, Percutaneous Approach (ICD-10-PCS; 2020-03-29)
PROC: 3E043XZ Introduction of Vasopressor into Central Vein, Percutaneous Approach (ICD-10-PCS; principal; 2020-04-02)
PROC: 02HV33Z Insertion of Infusion Device into Superior Vena Cava, Percutaneous Approach (ICD-10-PCS; principal; 2020-04-02)
PROC: 02HV33Z Insertion of Infusion Device into Superior Vena Cava, Percutaneous Approach (ICD-10-PCS; 2020-04-02)
PROC: 5A1D70Z Performance of Urinary Filtration, Intermittent, Less than 6 Hours Per Day (ICD-10-PCS; 2020-04-02)
PROC: 5A09357 Assistance with Respiratory Ventilation, Less than 24 Consecutive Hours, Continuous Positive Airway Pressure (ICD-10-PCS; 2020-04-02)
DX: T83.511A Infection and inflammatory reaction due to indwelling urethral catheter, initial encounter (principal); N17.0 Acute kidney failure with tubular necrosis; A41.02 Sepsis due to Methicillin resistant Staphylococcus aureus; R65.21 Severe sepsis with septic shock; J96.01 Acute respiratory failure with hypoxia; J96.02 Acute respiratory failure with hypercapnia; J18.9 Pneumonia, unspecified organism; I13.0 Hypertensive heart and chronic kidney disease with heart failure and stage 1 through stage 4 chronic kidney disease, or unspecified chronic kidney disease; D68.9 Coagulation defect, unspecified; I48.19 Other persistent atrial fibrillation; Z68.43 Body mass index [BMI] 50.0-59.9, adult; J44.0 Chronic obstructive pulmonary disease with (acute) lower respiratory infection; E27.40 Unspecified adrenocortical insufficiency; E87.2 Acidosis; N13.8 Other obstructive and reflux uropathy; L03.314 Cellulitis of groin; E87.1 Hypo-osmolality and hyponatremia; Z16.12 Extended spectrum beta lactamase (ESBL) resistance; Z16.24 Resistance to multiple antibiotics; D63.1 Anemia in chronic kidney disease; I95.9 Hypotension, unspecified; E66.01 Morbid (severe) obesity due to excess calories; Z66 Do not resuscitate; Z51.5 Encounter for palliative care; Z20.828 Contact with and (suspected) exposure to other viral communicable diseases; I49.5 Sick sinus syndrome; I50.9 Heart failure, unspecified; E11.22 Type 2 diabetes mellitus with diabetic chronic kidney disease; L89.622 Pressure ulcer of left heel, stage 2; F03.90 Unspecified dementia, unspecified severity, without behavioral disturbance, psychotic disturbance, mood disturbance, and anxiety; T83.011A Breakdown (mechanical) of indwelling urethral catheter, initial encounter; L98.491 Non-pressure chronic ulcer of skin of other sites limited to breakdown of skin; Z99.2 Dependence on renal dialysis; N18.30 Chronic kidney disease, stage 3 unspecified; L89.151 Pressure ulcer of sacral region, stage 1; E87.5 Hyperkalemia; B37.2 Candidiasis of skin and nail; N39.0 Urinary tract infection, site not specified; B96.4 Proteus (mirabilis) (morganii) as the cause of diseases classified elsewhere; B96.89 Other specified bacterial agents as the cause of diseases classified elsewhere; N48.22 Cellulitis of corpus cavernosum and penis; N48.5 Ulcer of penis; L30.4 Erythema intertrigo; E78.5 Hyperlipidemia, unspecified; I69.320 Aphasia following cerebral infarction; N40.1 Benign prostatic hyperplasia with lower urinary tract symptoms; R39.14 Feeling of incomplete bladder emptying; R33.8 Other retention of urine; F32.9 Major depressive disorder, single episode, unspecified; T50.2X5A Adverse effect of carbonic-anhydrase inhibitors, benzothiadiazides and other diuretics, initial encounter; T45.515A Adverse effect of anticoagulants, initial encounter; I25.10 Atherosclerotic heart disease of native coronary artery without angina pectoris; G47.33 Obstructive sleep apnea (adult) (pediatric); R19.7 Diarrhea, unspecified; I87.8 Other specified disorders of veins; F41.9 Anxiety disorder, unspecified; I25.2 Old myocardial infarction; M19.90 Unspecified osteoarthritis, unspecified site; Z79.51 Long term (current) use of inhaled steroids; Z79.01 Long term (current) use of anticoagulants; Z79.899 Other long term (current) drug therapy; Y84.6 Urinary catheterization as the cause of abnormal reaction of the patient, or of later complication, without mention of misadventure at the time of the procedure; Y92.122 Bedroom in nursing home as the place of occurrence of the external cause; Z87.19 Personal history of other diseases of the digestive system; Z90.49 Acquired absence of other specified parts of digestive tract; Z85.51 Personal history of malignant neoplasm of bladder; Z96.652 Presence of left artificial knee joint; Z95.1 Presence of aortocoronary bypass graft; Z95.2 Presence of prosthetic heart valve; Z95.0 Presence of cardiac pacemaker; Z86.14 Personal history of Methicillin resistant Staphylococcus aureus infection; Z98.42 Cataract extraction status, left eye; Z98.41 Cataract extraction status, right eye; Z87.891 Personal history of nicotine dependence; Z98.890 Other specified postprocedural states; Z91.81 History of falling; Z77.098 Contact with and (suspected) exposure to other hazardous, chiefly nonmedicinal, chemicals; Z71.3 Dietary counseling and surveillance; Z88.0 Allergy status to penicillin; Z80.3 Family history of malignant neoplasm of breast; Z82.49 Family history of ischemic heart disease and other diseases of the circulatory system
CPT/HCPCS: 36410; 36415; 36600; 71045; 71046; 76770; 76937; 80048; 80053; 80076; 80202; 81001; 82533; 82805; 83605; 83615; 83735; 84132; 84443; 85025; 85027; 85610; 85730; 86140; 86704; 86706; 87040; 87070; 87075; 87077; 87086; 87186; 87205; 87324; 87340; 87635; 90935; 93005; 93306; 93308; 94640; 94660; 94760; 96361; 96374; 99285